=== PATIENT | female | born 1945 | race Caucasian/White ===

== ENCOUNTER 2017-02-27 18:57 | Inpatient (IN) | payer OTHER, MEDICAID, MEDICARE ==
--- NOTE | 2017-02-27 19:08 | ED Physician Chart ---
Chief Complaint/HPI - Patient Information Date Seen:: 02/27/17 Time Seen:: 19:01 Chief Complaint:: abd wound History of Present Illness:: pt sent from [place] for worsening abdominal wound concerning for infection. Hx is diffucult to obtain from pt as she is not a great historian but apparently pt had a sx 1 yr ago at lower abd incision and it became infected and has been so x last yr. pt has ongoing cellulitis to base of abdomen bilat w erythema and 3 areas of large chronically open wound. no known fever. Historian:: Patient Review of Systems - Review of Systems General/Constitutional: No fever, No chills, No weight loss, No weakness, No diaphoresis, No edema, No loss of appetite, Other (morbid obese//nonambulatory) Skin: Skin lesions, Rash, No bruising Head: No headache, No light-headedness Eyes: No loss of vision, No pain, No diplopia ENT: No earache, No nasal drainage, No sore throat, No tinnitus Neck: No neck pain, No swelling, No thyromegaly, No stiffness, No mass noted Cardio Vascular: No chest pain, No palpitations, No PND, No orthopnea, No edema Pulmonary: No SOB, No cough, No sputum, No wheezing GI: No nausea, No vomiting, No diarrhea, No pain, No melena, No hematochezia, No constipation, No hematemesis G/U: No dysuria, No frequency, No hematuria Musculoskeletal: No bone or joint pain, No back pain, No muscle pain Endocrine: No polyuria, No polydipsia Psychiatric: No prior psych history, No depression, No anxiety, No suicidal ideation Hematopoietic: No bruising, No lymphadenopathy Allergic/Immuno: No urticaria, No angioedema Neurological: No syncope, No focal symptoms, Weakness, No paresthesia, No headache, No seizure, No dizziness, Confusion, No confusion, No vertigo Past Medical History - Past Medical History Past Medical History: HTN, DM, CAD, ESRD (dialysis pt), Other (morbid obese, afib) Social History: Care Facility Surgical History: other (prior abd sx) Medication: Reviewed Physical Exam - Physical Examination General/Constitutional: Awake, Well-developed, well-nourished, Alert, No distress, GCS 15, Non-toxic appearing Other Gen/Cons comments:: morbid obese//nonambulatory. no leg edema or ryan open sores. feet warm w ok pulses. pt alert and talking but somewhat poor w med hx. Head: Atraumatic Eyes: Lids, conjuctiva normal, PERRL, EOMI Skin: Nl inspection, No rash, No skin lesions, No ecchymosis, Well hydrated, No lymphadenopathy ENMT: External ears, nose nl, Nasal exam nl, Lips, teeth, gums nl Neck: Nontender, Full ROM w/o pain, No JVD, No nuchal rigidity, No bruit, No mass, No stridor Respiratory: Nl effort/Exclusion, Clear to Auscultation, No Wheeze/Rhonchi/Rales Other Respiratory comments:: dialysis cath l upper chest no sign of infection. Cardio Vascular: RRR, No murmur, gallop, rubs, NL S1 S2 GI: No tenderness/rebounding/guarding, No organomegaly, No hernia, Normal BS's, Nondistended, No mass/bruits, No McBurney tenderness Other GI comments:: warm red cellulitis to base of abdomen bilat w erythema and 3 areas of large chronically open wounds 5-10 cm diameter deep extension w foul malodor...located to either side and mid left low abd. pos nabs. no rebound. morbid obese. : No CVA tenderness Extremities: No tenderness or effusion, Full ROM, normal strength in all extremities, No edema, Normal digits & nails Other Extremities comments:: global nonfocal weakness. rt arm has picc line. no infection. no edema. b leg edema ..initially nonwheeping. Neuro/Psych: Alert/oriented, DTR's symmetric, Normal sensory exam, Normal motor strength, Judgement/insight normal, Mood normal, No focal deficits Misc: normal gait, Normal back, No paraspinal tenderness ED Septic Shock - . Is Septic Shock (SBP<90, OR Lactate>4 mmol\L) present?: Yes - <6hrs of presentation: Vital Signs: 70/40s, p 130 Assessment of Lungs: Lung CTA bilateral Assessment of Heart: RRR EKG Interpretation: NSR Capillary refill evaluation: Capillary refill < 2 secs Skin Exam: Warm, Dry, Edema, Documented in PE - Time of Reassessment Time of Reassessment: 22:09 Reassessment (Disposition) - Reassessment Reassessment:: pt noted w tachycardia 130 and low bp 70/30...has received 1 l ns and has edema of legs w wheeping. no rales in lungs but concern since dialysis pt. pt is alert and talkijng cogently and wondering if bp cuff is too small for this obese pt however since bp seems unquestionably somewhat low have ordered dopamine at 5mcg. pt got levaquin for wound tx. case dw dr cabrera will admit. Reassessment Condition:: Unchanged - Diagnosis Diagnosis:: 1 cellulitis //chronic wound infection lower abdominal wall 2 3x abdominal wall chronic wounds (large) 3 DM 4 hypotension. /tachycardia // r/o sepsis 5 renal failure //dialysis pt - Aftercare/Follow up Instructions Aftercare/Follow-Up Instructions:: Counseled pt regarding lab results/diagnosis & need follow up - Patient Disposition Admitted to:: Telemetry Condition at Disposition:: Unchanged
[2017-02-27] MEDS ORDERED: Sodium Chloride 0.9% 1,000 ML IV ONE ×3 (19:15→22:22)
[2017-02-27] MEDS ORDERED: Levofloxacin 500mg/100mL 500 MG/100 ML BAG IV ONE ×2 (19:16→19:34)
[2017-02-27 19:38] LABS: % BASOPHILS 0.1 % (0.0-2.0); % EOSINOPHILS 0.8 % (0.0-5.0); % LYMPHOCYTES 15.4 % (20.0-50.0); % MONOCYTES 3.8 % (2.0-10.0); % NEUTROPHILS 79.9 % (40.0-80.0); HEMATOCRIT 30.7 % (35.0-45.0); HEMOGLOBIN 10.3 gm/dL (11.7-16.1); MEAN CELL VOLUME 90.2 fl (81-100); MEAN CORPUSCULAR HEMOGLOBIN 30.3 pg (27.0-31.0); MEAN CORPUSCULAR HGB CONC 33.6 pg (28.0-36.0); NEUTROPHILE ABSOLUTE 13.8 Th/cmm (1.8-8.0); PLATELET COUNT 57 Th/cmm (150-400); RED BLOOD COUNT 3.41 Mil/cmm (3.80-5.20); RED CELL DISTRIBUTION WIDTH 17.4 % (11.5-20.0)
[2017-02-27 19:59] LABS: ALB/GLOB RATIO 0.6 (1.0-1.8); ANION GAP 12.6 (7.0-16.0); BILIRUBIN,TOTAL 2.8 mg/dL (0.3-1.0); BUN/CREATININE RATIO 7.1; CALCIUM SERUM 9.5 mg/dL (8.6-10.3); CARBON DIOXIDE 22.4 mEq/L (21.0-31.0)
[2017-02-27 20:05] LABS: CREATININE - SERUM 5.1 mg/dL (0.6-1.2)
[2017-02-27 20:10] LABS: WHITE BLOOD COUNT 17.3 Th/cmm (4.8-10.8)
[2017-02-27 20:25] LABS: INR 2.94 (0.5-1.4); PROTHROMBIN TIME (TEST) 32.3 SECONDS (9.5-11.5)
[2017-02-27] MEDS ORDERED: DOPamine 400 MG/250 ML BAG IV PRN (21:47)
[2017-02-27] MEDS ORDERED: DOPamine 400 MG/250 ML BAG IV ONE (21:51)
[2017-02-27] MEDS ORDERED: Norepinephrine 4 mg/4mL Vial IV ONE (22:59)
[2017-02-27] MEDS ORDERED: Morphine Sulfate 2 mg/mL 1mL Syr ONE (23:21)
[2017-02-27] MEDS: Morphine Sulfate 2 mg/mL 1mL Syr IVP PRN (23:26)
--- NOTE | 2017-02-28 00:10 | History & Physical ---
ADMIT DATE: 02/27/2017 CHIEF COMPLAINT: Hypotension and multiple abdominal wounds. HISTORY OF PRESENT ILLNESS: The patient is a 71-year-old female with long history of diabetes mellitus, end-stage renal failure, obesity, multiple abdominal wound, and end-stage renal failure, presented to the Emergency Room with hypotension. The patient evaluated by the ER physician. The patient received a liter of fluid. Systolic blood pressure remained in the 80s. The patient was admitted to the ICU for more evaluation and treatment. The patient denies any chest pain, any shortness of breath, nausea, vomiting, fever or chills. The patient has multiple abdominal wounds almost for 1 year. The patient goes to hemodialysis on Sunday, and Sunday. She missed her dialysis today. The patient started on IV fluid, IV Levophed, antibiotic. Infectious Disease consultation, Nephrology consultation obtained. Wound care obtained. Dr. Harris, General Surgery consulted on the case. 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 PAST SURGICAL HISTORY: No recent surgery. ALLERGIES: According to the patient, she does not have allergy. According to the papers SHE IS ALLERGIC TO PENICILLIN. MEDICATIONS: Follow admission reconciliation. SOCIAL HISTORY: No smoking, no alcohol or drugs. She lives at [facility] Unit. PHYSICAL EXAMINATION: GENERAL: She is awake, alert, oriented. VITAL SIGNS: Temperature 97.3, heart rate 120, blood pressure 83/50. HEENT: Normocephalic. Pupils reacting to light and accommodation. Sclerae clear. NECK: Supple. Negative for lymphadenopathy, JVD or bruit. CHEST: Bilateral normal. No rhonchi or wheezing. HEART: S1, S2 normal. Tachycardia. ABDOMEN: Soft. SKIN: Significant for multiple stage 4 decubitus ulcer of the lower abdomen. NEUROLOGICAL: She is awake, alert, oriented. No focal motor or sensory deficits. Cranial nerves 2-12 is intact. LABORATORY DATA: White blood 70, hemoglobin 10.3, hematocrit 30.7, platelet is 57. PT 32.3, INR 2.94. Sodium 134, potassium 4, BUN 36, creatinine 5.1, albumin 2.1. ASSESSMENT: 1. Infected multiple abdominal wall, stage 4 calciphylaxis wound. 2. Sepsis. 3. Hypotension. 4. Diabetes mellitus. 5. End-stage renal failure. 6. Anemia. 7. Severe malnutrition. PLAN: The patient admitted to the ICU under Dr. Velazquez's service, started on IV fluid, IV Levophed, IV antibiotic. The patient will resume her medication. Nephrology consultation. Wound care consultation, General Surgery consultation. Infectious Disease consultation. CBC, CMP for tomorrow. The patient is a full code. The patient continued on her Coumadin. JOB# [id number]
--- NOTE | 2017-02-28 01:09 | Consultation ---
Consult Note - Consult Note Service Date: 02/27/17 Consult Note: PHYSICIAN Consultation Note: Date of Admission: 02/27/17 Purpose of Consultation: Chief Complaint: Patient TRIXIE MCKEON was admitted to [facility] Intensive Care Unit with ABD. PAIN INF. / SEPSIS. History of Present Illness: 71 y female with history of calciphylaxis of lower abdomen, CKD 5 on HD, DM2, HTN, Anemia of CD, obesity brought from [place] for worsening lower abdominal wounds with foul smelling discharge, mainly in LLQ. She c/o associated pains in lower abdomen. She denies any fever and had multiple admission regarding the issue. On initial evaluation, she was afebrile and her WBC Count was 17,000. She was started on gentamicin, and given one dose of levaquin. Past Medical History: Calciphylaxis of lower abdomen, Obesity, Dm2, CKD 5 on HD, HTN, Anemia of CD. Allergies: Allergy/AdvReac Type Severity Reaction Status Date / Time heparin Allergy Verified 02/27/17 19:17 iodine Allergy Verified 02/27/17 19:17 Penicillins [PCN] Allergy Verified 02/27/17 19:16 propoxitine sulfate Allergy Uncoded 02/27/17 19:19 Vital Signs Temp 97.3 F 02/27/17 19:19 Pulse 138 02/27/17 23:42 Resp 14 02/27/17 23:42 BP 81/47 02/27/17 23:42 Pulse Ox 100 02/27/17 23:42 Intake & Output 02/27/17 02/27/17 02/28/17 06:59 18:59 06:59 Intake Total 2.032 Balance 2.032 Intake: Intake, IV Amount 2.032 Norepinephrine 4 mg In 2.032 Dextrose 5% 250 ml @ Per Protocol IV TITR PRN Rx#: [id number] Home Medication Medication Instructions Recorded Type Albuterol Sulfate 2.5 mg IH Q2H PRN 02/27/17 History Amikacin [Amikin] 300 mg IV DAILY 02/27/17 History Ascorbic Acid [Vitamin C] 500 mg PO DAILY 02/27/17 History Cholecalciferol (Vit D3) [Vitamin 2,000 iu PO DAILY 02/27/17 History D3] Diphenhydramine HCL [Benadryl] 25 mg PO Q6H PRN 02/27/17 History Escitalopram Oxalate [Lexapro] 10 mg PO DAILY 02/27/17 History Famotidine 20 mg PO BID 02/27/17 History Fludrocortisone Acetate [Florinef] 0.1 mg PO BID 02/27/17 History Hydrocodone/APAP 10 mg/325 mg 1 tab PO Q6H PRN 02/27/17 History [Bowman 10 mg/325 mg] Lactobacillus Acidophilus 1 each PO DAILY 02/27/17 History [Acidophilus] Meropenem 500 mg IV DAILY 02/27/17 History Metoprolol Tartrate 50 mg PO Q12H 02/27/17 History Miconazole 1 appl TD BID 02/27/17 History Polyethylene Glycol 3350 [Miralax] 17 gm PO DAILY PRN 02/27/17 History Vancomycin HCl [Vancomycin] 500 mg IV Q3D 02/27/17 History Warfarin Sodium 2 mg PO HS 02/27/17 History Zinc Sulfate [Zinc Sulfate 111 1 tab PO DAILY 02/27/17 History mg-50 mg] Current Medications Generic Name Dose Route Start Last Admin Trade Name Freq PRN Reason Stop Dose Admin Sodium Chloride 1,000 mls @ 75 mls/hr 02/27/17 22:22 Nacl 0.9% IV 02/28/17 11:41 .[id number] ONE Gentamicin Sulfate 120 mg/ 103 mls @ 100 mls/hr 02/28/17 00:00 Sodium Chloride IV 04/29/17 00:00 Q24H [facility] Norepinephrine Bitartrate 4 mg 254 mls @ 0 mls/hr 02/27/17 23:30 02/28/17 00: 01 / Dextrose IV 04/28/17 23:29 1.5 mcg/min TITR PRN 5.71 mls/hr BP MAINTENANCE (PER PROTOCOL) Titration Protocol Per Protocol Vancomycin HCl 1 gm/ Sodium 250 mls @ 165 mls/hr 02/28/17 01:00 Chloride IV 04/29/17 00:59 ONCE [facility] Clindamycin Phosphate 600 mg in 50 mls @ 100 mls/hr 02/28/17 05:00 Cleocin Pb IV 04/29/17 04:59 Q8HR [facility] Insulin Aspart 0 units 02/28/17 07:30 Novolog Insulin Sliding Scale SUBQ 04/29/17 07:29 ACHS [facility] Protocol Morphine Sulfate 2 mg 02/27/17 23:24 02/27/17 23:26 Morphine IVP 04/28/17 23:23 2 mg Q4HR PRN Administration Pain (Moderate) Review of Systems: A 12 point ROS was reviewed with the pertinent positive and negatives noted in the HPI. Physical Exam: General: Comfortable, not in distress. HEENT: Head is normocephalic, atraumatic. Oral Cavity : moist, pink tongue. Eyes : pallor is present, no icterus. Neck: Supple, no JVD Cardio: S1, and S2 WNL. Sys murmur present. Respiratory: vesicular breath sounds. no crackles no wheezing. Abdominal: soft NT ND BS present, b/l lower quadrant wounds with back necrotic tissues, left worse than right. left eound is deeper and malodorous. Genital/Urinary: Extremities: NCCE. Neurological: AAOx3, no focal neurodeficit. Assessment: 1. Leukocytosis suspect sepsis. 2. Infected lower abdominal wounds, worse on the left. 3. Calciphylaxis of lower abdomen. 4. Obesity. 5. Dm2 6. CKD 5 on HD. 7. HTN. 8. Anemia of CD. Plan: Will start vanco IV and clinda, continue gentamicin. Wound care. Sepsis w/u, including wound cultures. Signed, Elie Herrera M.D. [id number]
[2017-02-28] MEDS ORDERED: Gentamicin 80 mg/2mL Vial ONE ×2 (02:01→02:03)
[2017-02-28] MEDS ORDERED: Clindamycin 150 mg/mL 4mL Vial ONE (02:06)
[2017-02-28] MEDS ORDERED: Diltiazem 5 mg/mL 5mL Vial IVP ONE (04:02)
[2017-02-28] MEDS: Clindamycin 600mg/50mL 600 MG/50 ML BAG IV SCH ×3 (05:12→21:37)
[2017-02-28] MEDS: INSULIN ASPART SLIDING SCALE 100 UNITS/ML UNIT SUBQ SCH ×3 (06:55→18:00)
[2017-02-28 07:40] LABS: HEMATOCRIT 29.6 % (35.0-45.0); MEAN CELL VOLUME 91.5 fl (81-100); MEAN CORPUSCULAR HGB CONC 33.9 pg (28.0-36.0); MEAN PLATELET VOLUME 7.9 fl; PLATELET COUNT 57 Th/cmm (150-400); RED BLOOD COUNT 3.23 Mil/cmm (3.80-5.20); RED CELL DISTRIBUTION WIDTH 17.6 % (11.5-20.0)
[2017-02-28 07:44] LABS: WHITE BLOOD COUNT 19.1 Th/cmm (4.8-10.8)
[2017-02-28 08:10] LABS: ANION GAP 11.3 (7.0-16.0); BUN/CREATININE RATIO 7.6; CALCIUM SERUM 9.3 mg/dL (8.6-10.3); CARBON DIOXIDE 21.8 mEq/L (21.0-31.0); POTASSIUM SERUM 4.1 mEq/L (3.5-5.1)
[2017-02-28 09:04] LABS: BAND NEUTROPHILE 5 % (0-10); EOSINOPHIL 1 % (0-5); NEUTROPHILS 79 % (40-80); PLATELET ESTIMATE DECREASED PLATELETS (NORMAL); PLATELET MORPHOLOGY NORMAL (NORMAL); TOTAL CELLS COUNTED 100
[2017-02-28] MEDS: Lactobacillus Rhamnosus 10 Billion CFU Capsule PO SCH (09:06)
[2017-02-28] MEDS: MICONAZOLE 2% VG SCH ×2 (09:35→17:26)
[2017-02-28] MEDS: Morphine Sulfate 2 mg/mL 1mL Syr IVP PRN ×2 (10:28→15:30)
--- NOTE | 2017-02-28 10:41 | General Progress Note ---
Subjective - Review of Systems Service Date: 02/28/17 Events since last encounter: PT 32 seconds, DC Warfarin Plan: excisionaol debridement and wound vac application Patient will need lipectomy Objective - Results Result Diagrams: 02/28/17 06:55 02/28/17 06:55 Recent Labs: Laboratory Last Values WBC 19.1 Th/cmm (4.8-10.8) H 02/28/17 06:55 RBC 3.23 Mil/cmm (3.80-5.20) L 02/28/17 06:55 Hgb 10.0 gm/dL (11.7-16.1) L 02/28/17 06:55 Hct 29.6 % (35.0-45.0) L 02/28/17 06:55 MCV 91.5 fl (81-100) 02/28/17 06:55 MCH 31.0 pg (27.0-31.0) 02/28/17 06:55 MCHC Differential 33.9 pg (28.0-36.0) 02/28/17 06:55 RDW 17.6 % (11.5-20.0) 02/28/17 06:55 Plt Count 57 Th/cmm (150-400) L 02/28/17 06:55 MPV 7.9 fl 02/28/17 06:55 Neutrophils % 79.9 % (40.0-80.0) 02/27/17 19:30 Band Neutrophils % 5 % (0-10) 02/28/17 06:55 Lymphocytes % 15.4 % (20.0-50.0) L 02/27/17 19:30 Monocytes % 3.8 % (2.0-10.0) 02/27/17 19:30 Eosinophils % 0.8 % (0.0-5.0) 02/27/17 19:30 Basophils % 0.1 % (0.0-2.0) 02/27/17 19:30 Neutrophils (Manual) 79 % (40-80) 02/28/17 06:55 Lymphocytes 11 % (20-50) L 02/28/17 06:55 Monocytes 4 % (2-10) 02/28/17 06:55 Eosinophils 1 % (0-5) 02/28/17 06:55 Platelet Estimate DECREASED PLATELETS (NORMAL) 02/28/17 06:55 Platelet Morphology NORMAL (NORMAL) 02/28/17 06:55 RBC Morph Micro Appear NORMAL (NORMAL) 02/28/17 06:55 PT 32.3 SECONDS (9.5-11.5) H 02/27/17 19:30 INR 2.94 (0.5-1.4) H 02/27/17 19:30 PTT (Actin FS) 73.8 SECONDS (26.0-38.0) H 02/27/17 19:30 Sodium 137 mEq/L (136-145) 02/28/17 06:55 Potassium 4.1 mEq/L (3.5-5.1) 02/28/17 06:55 Chloride 108 mEq/L (98-107) H 02/28/17 06:55 Carbon Dioxide 21.8 mEq/L (21.0-31.0) 02/28/17 06:55 Anion Gap 11.3 (7.0-16.0) 02/28/17 06:55 BUN 38 mg/dL (7-25) H 02/28/17 06:55 Creatinine 5.0 mg/dL (0.6-1.2) H* 02/28/17 06:55 Est GFR ( Amer) 11.0 ml/min (>90) 02/28/17 06:55 Est GFR (Non-Af Amer) 9.1 ml/min 02/28/17 06:55 BUN/Creatinine Ratio 7.6 02/28/17 06:55 Glucose 91 mg/dL (70-105) 02/28/17 06:55 POC Glucose 82 MG/DL (70 - 105) 02/28/17 06:41 Hemoglobin A1c % 4.6 % (4.0-6.0) 02/27/17 19:30 Whole Bld Lactic Acid 1.56 mmol/L (0.60-1.99) 02/27/17 19:30 Calcium 9.3 mg/dL (8.6-10.3) 02/28/17 06:55 Total Bilirubin 2.8 mg/dL (0.3-1.0) H 02/27/17 19:30 AST 58 U/L (13-39) H 02/27/17 19:30 ALT 18 U/L (7-52) 02/27/17 19:30 Alkaline Phosphatase 205 U/L (34-104) H 02/27/17 19:30 Total Protein 5.9 gm/dL (6.0-8.3) L 02/27/17 19:30 Albumin 2.1 gm/dL (3.7-5.3) L 02/27/17 19:30 Globulin 3.8 gm/dL 02/27/17 19:30 Albumin/Globulin Ratio 0.6 (1.0-1.8) L 02/27/17 19:30 Serum Ketones NEGATIVE (NEGATIVE) 02/27/17 19:30 - Physical Exam Vitals and I&O: Vital Signs Temp 98.0 F 02/28/17 04:00 Pulse 116 02/28/17 09:05 Resp 16 02/28/17 07:00 BP 96/52 02/28/17 09:05 Pulse Ox 98 02/28/17 07:00 Intake & Output 02/27/17 02/28/17 02/28/17 18:59 06:59 18:59 Intake Total 155.032 Output Total 0 Balance 155.032 Weight (lbs) 122.47 kg Intake: Intake, IV Amount 155.032 Clindamycin 600mg/50mL 50 600 mg In 50 ml @ 100 mls /hr IV Q8HR [facility] Rx#: [id number] Gentamicin 120 mg In 103 Sodium Chloride 0.9% 100 ml @ 100 mls/hr IV Q24H [facility] Rx#:[id number] Norepinephrine 4 mg In 2.032 Dextrose 5% 250 ml @ Per Protocol IV TITR PRN Rx#: [id number] Output: Urine 0 Other: # Bowel Movements 0 Active Medications: Current Medications Albuterol Sulfate (Albuterol 2.5mg/3ml Neb Ud) 2.5 mg HHN Q2H PRN PRN Reason: Shortness of Breath Stop: 04/29/17 03:59 Ascorbic Acid (Vitamin C) 500 mg PO DAILY [facility] Stop: 04/29/17 08:59 Last Admin: 02/28/17 09:05 Dose: 500 mg Cholecalciferol (Vitamin D3) 2,000 iu PO DAILY [facility] Stop: 04/29/17 08:59 Last Admin: 02/28/17 09:05 Dose: 2,000 iu Diphenhydramine HCl (Benadryl) 25 mg PO Q6H PRN PRN Reason: Itching Stop: 10/01/17 03:39 Escitalopram Oxalate (Lexapro) 10 mg PO DAILY [facility] PRN Reason: Protocol Stop: 04/29/17 08:59 Last Admin: 02/28/17 09:04 Dose: 10 mg Famotidine (Pepcid) 20 mg PO BID [facility] Stop: 04/29/17 08:59 Last Admin: 02/28/17 09:06 Dose: 20 mg Fludrocortisone Acetate (Florinef) 0.1 mg PO BID [facility] Stop: 04/29/17 08:59 Last Admin: 02/28/17 09:04 Dose: 0.1 mg Sodium Chloride (Nacl 0.9%) 1,000 mls @ 75 mls/hr IV .[id number] ONE Stop: 02/28/17 11:41 Gentamicin Sulfate 120 mg/ (Sodium Chloride) 103 mls @ 100 mls/hr IV Q24H [facility] Stop: 04/29/17 00:00 Last Infusion: 02/28/17 03:35 Dose: Infused Norepinephrine Bitartrate 4 mg (/ Dextrose) 254 mls @ 0 mls/hr IV TITR PRN; Protocol; Per Protocol PRN Reason: BP MAINTENANCE (PER PROTOCOL) Stop: 04/28/17 23:29 Last Titration: 02/28/17 00:01 Dose: 1.5 mcg/min, 5.71 mls/hr Clindamycin Phosphate (Cleocin Pb) 600 mg in 50 mls @ 100 mls/hr IV Q8HR [facility] Stop: 04/29/17 04:59 Last Infusion: 02/28/17 05:45 Dose: Infused Diltiazem HCl 125 mg/ Dextrose 125 mls @ 10 mls/hr IV TITR [facility]; 10 MG/HR PRN Reason: Protocol Stop: 04/29/17 04:14 Last Admin: 02/28/17 05:00 Dose: 10 mg/hr, 10 mls/hr Insulin Aspart (Novolog Insulin Sliding Scale) 0 units SUBQ ACHS [facility] PRN Reason: Protocol Stop: 04/29/17 07:29 Last Admin: 02/28/17 06:55 Dose: Not Given Lactobacillus Rhamnosus (Culturelle) 1 each PO DAILY [facility] Stop: 04/29/17 08:59 Last Admin: 02/28/17 09:06 Dose: 1 each Metoprolol Tartrate (Lopressor) 50 mg PO Q12HR [facility] Stop: 04/29/17 08:59 Last Admin: 02/28/17 09:05 Dose: Not Given Miconazole Nitrate (Miconazole 2% Cream) 1 appl VG BID [facility] Stop: 03/07/17 08:59 Morphine Sulfate (Morphine) 2 mg IVP Q4HR PRN PRN Reason: Pain (Moderate) Stop: 04/28/17 23:23 Last Admin: 02/28/17 10:28 Dose: 2 mg Warfarin Sodium (Coumadin) 2 mg PO HS [facility] PRN Reason: Protocol Stop: 04/29/17 20:59 Zinc Sulfate (Zinc Sulfate) 220 mg PO DAILY [facility] Stop: 04/29/17 08:59 Last Admin: 02/28/17 09:05 Dose: 220 mg
[2017-02-28] MEDS: Venelex 60gm Tube TP SCH (12:26)
[2017-02-28] MEDS: D5-0.45NS 1,000 ML IV SCH (13:15)
--- NOTE | 2017-02-28 14:43 | Infectious Disease Prog Note ---
Infectious Disease Subjective - Review of Systems Service Date: 02/28/17 Subjective: There is no new change. Infectious Disease Objective - Results Result Diagrams: 02/28/17 06:55 02/28/17 06:55 Recent Labs: Laboratory Last Values WBC 19.1 Th/cmm (4.8-10.8) H 02/28/17 06:55 RBC 3.23 Mil/cmm (3.80-5.20) L 02/28/17 06:55 Hgb 10.0 gm/dL (11.7-16.1) L 02/28/17 06:55 Hct 29.6 % (35.0-45.0) L 02/28/17 06:55 MCV 91.5 fl (81-100) 02/28/17 06:55 MCH 31.0 pg (27.0-31.0) 02/28/17 06:55 MCHC Differential 33.9 pg (28.0-36.0) 02/28/17 06:55 RDW 17.6 % (11.5-20.0) 02/28/17 06:55 Plt Count 57 Th/cmm (150-400) L 02/28/17 06:55 MPV 7.9 fl 02/28/17 06:55 Neutrophils % 79.9 % (40.0-80.0) 02/27/17 19:30 Band Neutrophils % 5 % (0-10) 02/28/17 06:55 Lymphocytes % 15.4 % (20.0-50.0) L 02/27/17 19:30 Monocytes % 3.8 % (2.0-10.0) 02/27/17 19:30 Eosinophils % 0.8 % (0.0-5.0) 02/27/17 19:30 Basophils % 0.1 % (0.0-2.0) 02/27/17 19:30 Neutrophils (Manual) 79 % (40-80) 02/28/17 06:55 Lymphocytes 11 % (20-50) L 02/28/17 06:55 Monocytes 4 % (2-10) 02/28/17 06:55 Eosinophils 1 % (0-5) 02/28/17 06:55 Platelet Estimate DECREASED PLATELETS (NORMAL) 02/28/17 06:55 Platelet Morphology NORMAL (NORMAL) 02/28/17 06:55 RBC Morph Micro Appear NORMAL (NORMAL) 02/28/17 06:55 PT 32.3 SECONDS (9.5-11.5) H 02/27/17 19:30 INR 2.94 (0.5-1.4) H 02/27/17 19:30 PTT (Actin FS) 73.8 SECONDS (26.0-38.0) H 02/27/17 19:30 Sodium 137 mEq/L (136-145) 02/28/17 06:55 Potassium 4.1 mEq/L (3.5-5.1) 02/28/17 06:55 Chloride 108 mEq/L (98-107) H 02/28/17 06:55 Carbon Dioxide 21.8 mEq/L (21.0-31.0) 02/28/17 06:55 Anion Gap 11.3 (7.0-16.0) 02/28/17 06:55 BUN 38 mg/dL (7-25) H 02/28/17 06:55 Creatinine 5.0 mg/dL (0.6-1.2) H* 02/28/17 06:55 Est GFR ( Amer) 11.0 ml/min (>90) 02/28/17 06:55 Est GFR (Non-Af Amer) 9.1 ml/min 02/28/17 06:55 BUN/Creatinine Ratio 7.6 02/28/17 06:55 Glucose 91 mg/dL (70-105) 02/28/17 06:55 POC Glucose 96 MG/DL (70 - 105) 02/28/17 12:24 Hemoglobin A1c % 4.6 % (4.0-6.0) 02/27/17 19:30 Whole Bld Lactic Acid 1.56 mmol/L (0.60-1.99) 02/27/17 19:30 Calcium 9.3 mg/dL (8.6-10.3) 02/28/17 06:55 Phosphorus 5.4 mg/dL (2.5-5.0) H 02/28/17 06:55 Total Bilirubin 2.8 mg/dL (0.3-1.0) H 02/27/17 19:30 AST 58 U/L (13-39) H 02/27/17 19:30 ALT 18 U/L (7-52) 02/27/17 19:30 Alkaline Phosphatase 205 U/L (34-104) H 02/27/17 19:30 Total Protein 5.9 gm/dL (6.0-8.3) L 02/27/17 19:30 Albumin 2.1 gm/dL (3.7-5.3) L 02/27/17 19:30 Globulin 3.8 gm/dL 02/27/17 19:30 Albumin/Globulin Ratio 0.6 (1.0-1.8) L 02/27/17 19:30 Serum Ketones NEGATIVE (NEGATIVE) 02/27/17 19:30 - Physical Exam Vitals and I&O: Vital Signs Temp 98 F 02/28/17 13:00 Pulse 116 02/28/17 14:00 Resp 11 02/28/17 13:00 BP 86/42 02/28/17 13:00 Pulse Ox 98 02/28/17 13:00 Intake & Output 02/27/17 02/28/17 02/28/17 18:59 06:59 18:59 Intake Total 155.032 Output Total 0 Balance 155.032 Weight (lbs) 122.47 kg Intake: Intake, IV Amount 155.032 Clindamycin 600mg/50mL 50 600 mg In 50 ml @ 100 mls /hr IV Q8HR [facility] Rx#: [id number] Gentamicin 120 mg In 103 Sodium Chloride 0.9% 100 ml @ 100 mls/hr IV Q24H [facility] Rx#:[id number] Norepinephrine 4 mg In 2.032 Dextrose 5% 250 ml @ Per Protocol IV TITR PRN Rx#: [id number] Output: Urine 0 Other: # Bowel Movements 0 Active Medications: Current Medications Albuterol Sulfate (Albuterol 2.5mg/3ml Neb Ud) 2.5 mg HHN Q2H PRN PRN Reason: Shortness of Breath Stop: 04/29/17 03:59 Ascorbic Acid (Vitamin C) 500 mg PO DAILY [facility] Stop: 04/29/17 08:59 Last Admin: 02/28/17 09:05 Dose: 500 mg Cholecalciferol (Vitamin D3) 2,000 iu PO DAILY [facility] Stop: 04/29/17 08:59 Last Admin: 02/28/17 09:05 Dose: 2,000 iu Diphenhydramine HCl (Benadryl) 25 mg PO Q6H PRN PRN Reason: Itching Stop: 04/29/17 03:39 Escitalopram Oxalate (Lexapro) 10 mg PO DAILY [facility] PRN Reason: Protocol Stop: 04/29/17 08:59 Last Admin: 02/28/17 09:04 Dose: 10 mg Famotidine (Pepcid) 20 mg PO BID [facility] Stop: 04/29/17 08:59 Last Admin: 02/28/17 09:06 Dose: 20 mg Fludrocortisone Acetate (Florinef) 0.1 mg PO BID [facility] Stop: 04/29/17 08:59 Last Admin: 02/28/17 09:04 Dose: 0.1 mg Norepinephrine Bitartrate 4 mg (/ Dextrose) 254 mls @ 0 mls/hr IV TITR PRN; Protocol; Per Protocol PRN Reason: BP MAINTENANCE (PER PROTOCOL) Stop: 04/28/17 23:29 Last Titration: 02/28/17 00:01 Dose: 1.5 mcg/min, 5.71 mls/hr Clindamycin Phosphate (Cleocin Pb) 600 mg in 50 mls @ 100 mls/hr IV Q8HR [facility] Stop: 04/29/17 04:59 Last Admin: 02/28/17 13:00 Dose: 100 mls/hr Diltiazem HCl 125 mg/ Dextrose 125 mls @ 10 mls/hr IV TITR [facility]; 10 MG/HR PRN Reason: Protocol Stop: 04/29/17 04:14 Last Admin: 02/28/17 05:00 Dose: 10 mg/hr, 10 mls/hr Gentamicin Sulfate 160 mg/ (Sodium Chloride) 104 mls @ 200 mls/hr IV Q48H [facility] Stop: 04/30/17 08:59 Dextrose/Sodium Chloride (D5-0.45ns) 1,000 mls @ 75 mls/hr IV .[id number] [facility] Stop: 04/29/17 13:08 Last Admin: 02/28/17 13:15 Dose: 75 mls/hr Insulin Aspart (Novolog Insulin Sliding Scale) 0 units SUBQ ACHS [facility] PRN Reason: Protocol Stop: 04/29/17 07:29 Last Admin: 02/28/17 12:30 Dose: Not Given Lactobacillus Rhamnosus (Culturelle) 1 each PO DAILY [facility] Stop: 04/29/17 08:59 Last Admin: 08/02/17 09:06 Dose: 1 each Metoprolol Tartrate (Lopressor) 50 mg PO Q12HR [facility] Stop: 04/29/17 08:59 Last Admin: 02/28/17 09:05 Dose: Not Given Miconazole Nitrate (Miconazole 2% Cream) 1 appl VG BID [facility] Stop: 03/07/17 08:59 Last Admin: 02/28/17 09:35 Dose: 1 appl Miscellaneous (Clinical Monitoring) 1 ea MC DAILY PRN PRN Reason: RENAL Stop: 04/29/17 10:50 Morphine Sulfate (Morphine) 2 mg IVP Q4HR PRN PRN Reason: Pain (Moderate) Stop: 04/28/17 23:23 Last Admin: 02/28/17 10:28 Dose: 2 mg Phytonadione (Mephyton) 10 mg PO TID [facility] Stop: 03/03/17 13:59 Zinc Sulfate (Zinc Sulfate) 220 mg PO DAILY [facility] Stop: 04/29/17 08:59 Last Admin: 02/28/17 09:05 Dose: 220 mg General: no acute distress, well developed, well nourished HEENT: atraumatic, no normocephalic, no PERRLA, no EOMI, no moist mucous membrane Neck: supple, no thyromegaly Cardiovascular: S1S2, regular Lungs: clear to auscultation bilaterally, clear to percussion Abdomen: soft, other (lower abdominal wound deep foul smeelinmg. worse on left.) , no tender, no distended Extremities: no cyanosis, no clubbing, no edema Neurological: awake, alert, oriented Infectious Disease Assmt/Plan - Assessment Assessment: 1. Leukocytosis suspect sepsis. 2. Infected lower abdominal wounds, worse on the left. 3. Calciphylaxis of lower abdomen. 4. Obesity. 5. Dm2 6. CKD 5 on HD. 7. HTN. 8. Anemia of CD. - Plan Plan: Will start vanco IV and clinda, continue gentamicin. Wound care. Sepsis w/u, including wound cultures.
[2017-02-28] MEDS ORDERED: VTE Chemical Prophylaxis Screen/Admission MC PRN (15:41)
[2017-02-28] MEDS ORDERED: Levofloxacin 250mg/50mL 250 MG/50 ML BAG IV SCH (17:00)
--- NOTE | 2017-02-28 20:52 | Consultation ---
DATE OF CONSULTATION: 02/28/2017 PATIENT OF: Dr. Velazquez. HISTORY AND PHYSICAL: This is a 71-year-old morbidly obese female patient who was recently discharged from [facility] to custodial. From there the patient became hypotensive. The patient came to the Emergency Room with a blood pressure of 80 systolic. The patient was given IV fluid challenge, following this the patient developed supraventricular tachycardia. At this time, Cardiology consult was requested. PAST MEDICAL HISTORY: Cellulitis of the abdominal wound with wound infection, hypertension, diabetes mellitus type 2, diabetic CKD stage 5, end-stage renal disease, on dialysis, iron deficiency anemia, morbid obesity, obstructive sleep apnea, secondary hyperparathyroidism, and the patient has stage 4 calciphylaxis wound. FAMILY HISTORY: Unremarkable. SOCIAL HISTORY: No history of smoking, alcohol abuse. ALLERGIES: PENICILLIN. PHYSICAL EXAMINATION: VITAL SIGNS: Blood pressure 110/70, pulse 110, respirations 20. HEAD: Normocephalic. No lumps or bumps. EYES: Pupils equal, reactive to light. Fundi show AV nicking, sclerae white, conjunctivae pink. NECK: Carotids 2+. Normal upstroke. JVD flat. Thyroid not palpable. Lymph nodes not palpable. CHEST: Shows increased AP diameter. No kyphosis, scoliosis. LUNGS: Bilateral breath sounds. HEART: PMI fifth intercostal space lateral to midclavicular line. S1, S2. No S3, S4, soft systolic murmur. ABDOMEN: Soft. The patient has a wound, which is infected with stage 4 calciphylaxis of the wound. EXTREMITIES: Peripheral pulses 1+, pedal edema mild. CLINICAL IMPRESSION: Hypotension, septic shock, cellulitis of the abdomen, with calciphylaxis of wound stage 4, hypertension, diabetes mellitus type 2, diabetic chronic kidney disease stage 5, end-stage renal disease on dialysis, iron deficiency anemia, morbid obesity, obstructive sleep apnea. PLAN: The patient to have dialysis, ultrafiltration. Infectious Disease consult and Surgical consult for debridement of the wound. JOB# [id number]
--- NOTE | 2017-02-28 22:28 | Internal Medicine Prog Note ---
Internal Medicine Subjective - Subjective Service Date: 02/28/17 Patient seen and examined:: with staff Patient is:: awake, verbal Per staff patient has:: poor appetite, tolerating meds Internal Medicine Objective - Results Result Diagrams: 02/28/17 06:55 02/28/17 06:55 Recent Labs: Laboratory Last Values WBC 19.1 Th/cmm (4.8-10.8) H 02/28/17 06:55 RBC 3.23 Mil/cmm (3.80-5.20) L 02/28/17 06:55 Hgb 10.0 gm/dL (11.7-16.1) L 02/28/17 06:55 Hct 29.6 % (35.0-45.0) L 02/28/17 06:55 MCV 91.5 fl (81-100) 02/28/17 06:55 MCH 31.0 pg (27.0-31.0) 02/28/17 06:55 MCHC Differential 33.9 pg (28.0-36.0) 02/28/17 06:55 RDW 17.6 % (11.5-20.0) 02/28/17 06:55 Plt Count 57 Th/cmm (150-400) L 02/28/17 06:55 MPV 7.9 fl 02/28/17 06:55 Neutrophils % 79.9 % (40.0-80.0) 02/27/17 19:30 Band Neutrophils % 5 % (0-10) 02/28/17 06:55 Lymphocytes % 15.4 % (20.0-50.0) L 02/27/17 19:30 Monocytes % 3.8 % (2.0-10.0) 02/27/17 19:30 Eosinophils % 0.8 % (0.0-5.0) 02/27/17 19:30 Basophils % 0.1 % (0.0-2.0) 02/27/17 19:30 Neutrophils (Manual) 79 % (40-80) 02/28/17 06:55 Lymphocytes 11 % (20-50) L 02/28/17 06:55 Monocytes 4 % (2-10) 02/28/17 06:55 Eosinophils 1 % (0-5) 02/28/17 06:55 Platelet Estimate DECREASED PLATELETS (NORMAL) 02/28/17 06:55 Platelet Morphology NORMAL (NORMAL) 02/28/17 06:55 RBC Morph Micro Appear NORMAL (NORMAL) 02/28/17 06:55 PT 32.3 SECONDS (9.5-11.5) H 02/27/17 19:30 INR 2.94 (0.5-1.4) H 02/27/17 19:30 PTT (Actin FS) 73.8 SECONDS (26.0-38.0) H 02/27/17 19:30 Sodium 137 mEq/L (136-145) 02/28/17 06:55 Potassium 4.1 mEq/L (3.5-5.1) 02/28/17 06:55 Chloride 108 mEq/L (98-107) H 02/28/17 06:55 Carbon Dioxide 21.8 mEq/L (21.0-31.0) 02/28/17 06:55 Anion Gap 11.3 (7.0-16.0) 02/28/17 06:55 BUN 38 mg/dL (7-25) H 02/28/17 06:55 Creatinine 5.0 mg/dL (0.6-1.2) H* 02/28/17 06:55 Est GFR ( Amer) 11.0 ml/min (>90) 02/28/17 06:55 Est GFR (Non-Af Amer) 9.1 ml/min 02/28/17 06:55 BUN/Creatinine Ratio 7.6 02/28/17 06:55 Glucose 91 mg/dL (70-105) 02/28/17 06:55 POC Glucose 96 MG/DL (70 - 105) 02/28/17 12:24 Hemoglobin A1c % 4.6 % (4.0-6.0) 02/27/17 19:30 Whole Bld Lactic Acid 1.56 mmol/L (0.60-1.99) 02/27/17 19:30 Calcium 9.3 mg/dL (8.6-10.3) 02/28/17 06:55 Phosphorus 5.4 mg/dL (2.5-5.0) H 02/28/17 06:55 Total Bilirubin 2.8 mg/dL (0.3-1.0) H 02/27/17 19:30 AST 58 U/L (13-39) H 02/27/17 19:30 ALT 18 U/L (7-52) 02/27/17 19:30 Alkaline Phosphatase 205 U/L (34-104) H 02/27/17 19:30 Total Protein 5.9 gm/dL (6.0-8.3) L 02/27/17 19:30 Albumin 2.1 gm/dL (3.7-5.3) L 02/27/17 19:30 Globulin 3.8 gm/dL 02/27/17 19:30 Albumin/Globulin Ratio 0.6 (1.0-1.8) L 02/27/17 19:30 Serum Ketones NEGATIVE (NEGATIVE) 02/27/17 19:30 - Physical Exam Vitals and I&O: Vital Signs Temp 97.6 F 02/28/17 19:00 Pulse 110 02/28/17 19:00 Resp 10 02/28/17 19:00 BP 96/51 02/28/17 19:00 Pulse Ox 98 02/28/17 19:00 Intake & Output 02/28/17 02/28/17 03/01/17 06:59 18:59 06:59 Intake Total 155.032 322.140 Output Total 0 Balance 155.032 322.140 Weight (lbs) 122.47 kg Intake: Intake, IV Amount 155.032 322.140 Clindamycin 600mg/50mL 50 50 600 mg In 50 ml @ 100 mls /hr IV Q8HR [facility] Rx#: [id number] Diltiazem 125 mg In 123.167 Dextrose 5% 100 ml @ 10 MG/HR 10 mls/hr IV TITR [facility] Rx#:[id number] Gentamicin 120 mg In 103 Sodium Chloride 0.9% 100 ml @ 100 mls/hr IV Q24H [facility] Rx#:[id number] Levofloxacin 250mg/50mL 50 250 mg In 50 ml @ 50 mls/ hr IV Q48HR [facility] Rx#: [id number] Norepinephrine 4 mg In 2.032 98.973 Dextrose 5% 250 ml @ Per Protocol IV TITR PRN Rx#: [id number] Output: Urine 0 Other: # Bowel Movements 0 Active Medications: Current Medications Albuterol Sulfate (Albuterol 2.5mg/3ml Neb Ud) 2.5 mg HHN Q2H PRN PRN Reason: Shortness of Breath Stop: 04/29/17 03:59 Ascorbic Acid (Vitamin C) 500 mg PO DAILY [facility] Stop: 04/29/17 08:59 Last Admin: 02/28/17 09:05 Dose: 500 mg Cholecalciferol (Vitamin D3) 2,000 iu PO DAILY [facility] Stop: 04/29/17 08:59 Last Admin: 02/28/17 09:05 Dose: 2,000 iu Diphenhydramine HCl (Benadryl) 25 mg PO Q6H PRN PRN Reason: Itching Stop: 04/29/17 03:39 Escitalopram Oxalate (Lexapro) 10 mg PO DAILY [facility] PRN Reason: Protocol Stop: 04/29/17 08:59 Last Admin: 02/28/17 09:04 Dose: 10 mg Famotidine (Pepcid) 20 mg PO BID [facility] Stop: 04/29/17 08:59 Last Admin: 02/28/17 17:25 Dose: 20 mg Fludrocortisone Acetate (Florinef) 0.1 mg PO BID [facility] Stop: 04/29/17 08:59 Last Admin: 02/28/17 17:12 Dose: 0.1 mg Norepinephrine Bitartrate 4 mg (/ Dextrose) 254 mls @ 0 mls/hr IV TITR PRN; Protocol; Per Protocol PRN Reason: BP MAINTENANCE (PER PROTOCOL) Stop: 04/28/17 23:29 Last Admin: 02/28/17 17:21 Dose: 1.5 mcg/min, 5.71 mls/hr Clindamycin Phosphate (Cleocin Pb) 600 mg in 50 mls @ 100 mls/hr IV Q8HR [facility] Stop: 04/29/17 04:59 Last Admin: 02/28/17 21:37 Dose: 100 mls/hr Diltiazem HCl 125 mg/ Dextrose 125 mls @ 10 mls/hr IV TITR [facility]; 10 MG/HR PRN Reason: Protocol Stop: 04/29/17 04:14 Last Admin: 02/28/17 17:19 Dose: 10 mg/hr, 10 mls/hr Gentamicin Sulfate 160 mg/ (Sodium Chloride) 104 mls @ 200 mls/hr IV Q48H [facility] Stop: 04/30/17 08:59 Dextrose/Sodium Chloride (D5-0.45ns) 1,000 mls @ 75 mls/hr IV .[id number] [facility] Stop: 04/29/17 13:08 Last Admin: 02/28/17 13:15 Dose: 75 mls/hr Levofloxacin (Levaquin Pb) 250 mg in 50 mls @ 50 mls/hr IV Q48HR [facility] Stop: 04/29/17 16:59 Last Infusion: 02/28/17 18:15 Dose: Infused Albumin Human (Albuminar 25%) 25 gm in 100 mls @ 50 mls/hr IV PRN PRN PRN Reason: BP Support During HD Stop: 03/01/17 23:59 Lactobacillus Rhamnosus (Culturelle) 1 each PO DAILY [facility] Stop: 04/29/17 08:59 Last Admin: 02/28/17 09:06 Dose: 1 each Metoprolol Tartrate (Lopressor) 50 mg PO Q12HR [facility] Stop: 04/29/17 08:59 Last Admin: 02/28/17 09:05 Dose: Not Given Miconazole Nitrate (Miconazole 2% Cream) 1 appl VG BID [facility] Stop: 03/07/17 08:59 Last Admin: 02/28/17 17:26 Dose: 1 appl Miscellaneous (Clinical Monitoring) 1 ea DAILY PRN PRN Reason: RENAL Stop: 04/29/17 10:50 Miscellaneous ([employer] Prophylaxis Screen/ Admission) 1 [facility] PRN PRN PRN Reason: PROTOCOL Stop: 04/29/17 15:40 Morphine Sulfate (Morphine) 2 mg IVP Q4HR PRN PRN Reason: Pain (Moderate) Stop: 04/28/17 23:23 Last Admin: 02/28/17 15:30 Dose: 2 mg Phytonadione (Mephyton) 10 mg PO TID [facility] Stop: 03/03/17 13:59 Last Admin: 02/28/17 14:43 Dose: 10 mg Sevelamer HCl (Renagel) 800 mg PO TIDWM [facility] Stop: 04/30/17 07:59 Zinc Sulfate (Zinc Sulfate) 220 mg PO DAILY [facility] Stop: 04/29/17 08:59 Last Admin: 02/28/17 09:05 Dose: 220 mg General: weak, lethargic, obese HEENT: NC/AT, PERRLA, EOMI, anicteric sclerae Neck: Supple, No JVD, No thyromegaly, +2 carotid pulse wo bruit Cardiovascular: RRR, Normal S1, Normal S2, tachy Abdomen: soft, tender, positive bowel sound Extremities: edema Neurological: no change (abdominal wall significant for multiple stage 4 opened wounds) Internal Medicine Assmt/Plan - Assessment Assessment: 1'MULTIPLE CALCIPHYLAXIS WOUND OF THE ABDOMINAL WALL 2.DM. 3.SEPSIS. 4.ESRF - Plan Plan: CONTINUE ON CURRENT MEDICATION AND DIET. Nutritional Asmnt/Malnutr-PDOC - Dietary Evaluation Malnutrition Findings (Please click <Entered> for more info): Nutritional Asmnt/Malnutrition Start: 02/28/17 14: 25 Text: Status: Complete Freq: Document 02/28/17 14:32 GSUN (Rec: 02/28/17 14:52 [email or web address] [email or web address]) Nutritional Asmnt/Malnutrition Patient General Information Nutritional Screening High Risk Screening Diagnosis Infectured multiple abdominal wound, sepsis, hypotension Pertinent Medical Hx/Surgical Hx DM, end stage renal failure, obesity, multiple abdominal wound, anemia Subjective Information 71 [address] consult for wounds/calciphylaxis. Pt was lethargic during visit, spoke to at bedside. Briefly explained renal diet, agreeable to plan, not suitble for extensive edu at this time. Pt appeared obese. Pt reported UBW 250lb measured 1 month ago, pt is unsure of dry weight at dialysis center. Pt reported has gradually lost weight 80lb over the past year due to poor appetite and hospitalizations. RD recommended oral supplements, pt denied, stating she has tried and threw up. Current Diet Order/ Nutrition Support Renal, 1800kcal Pertinent Medications Vitamin C, Vitamin D3, D5-0. 45ns, Pepcid, Novolog, Culturelle, Morphine, Zinc Sulfate Pertinent Labs /: BUN 38H, creatinine 5H, phosphorus 5.4H Nutritional Hx/Data Height 1.63 m Height (Calculated Centimeters) 162.6 Current Weight (lbs) 113.398 kg Weight (Calculated Kilograms) 113.4 Weight (Calculated Grams) 891735.1 [place] Body Weight 120 Recent Weight Change Yes Weight Status Morbidly Obese GI Symptoms Skin Integrity/Comment: Bilateral lower extremities pitting 3+. Abdominal wounds/ calciphylaxis Estimated Nutritional Goals BEE in Kcals: Adj wt of IBW Calories/Kcals/Kg AdjBW 152.5lb/69.3kg (adjsuted to UBW) Kcals Calculated 2079-2425kcal (30-35kcal/kg) Protein: Adj wt of IBW Protein Calculated 90-104g (1.2-1.5/gkg) Fluid: ml 2078-2426ml (1ml/kcal) Nutritional Problem 3. Problem Problem Malnutrition related to Etiology unknown etiology, energy imbalance aeb Signs/Symptoms: BMI >40 2. Problem Problem Increased kcal and prot needs related to Etiology hypermetabolic state aeb Signs/Symptoms: on HD, sepsis 1. Problem Problem Impaired nutrient utilization related to Etiology end stage renal failure aeb Signs/Symptoms: on HD, BUN 38H, creatinine 5H, phosphorus 5.4H Malnutrition Related to Morbid Obesity Malnutrition related to morbid obesity BMI> or equal to 40 Query Text:(Any 1 Criteria met) Malnutrition related to morbid obesity Yes Intervention/Recommendation Comments 1. Recommend renal diet. Briefly explained renal diet, pt is agreeable to plan. Encourage PO intake. 2. Recommend removing " 1800kcal" restriction as pt is in hypermetabolic state ( sepsis, HD) and obese, requiring more than 1800kcal, weight loss not favorable at this time. 3. Pt reported poor appetite many months, RD recommend oral supplements, pt declined. Expected Outcomes/Goals Expected Outcomes/Goals 1. PO intake to meet at least 75% of estimated nutritional needs.
[2017-03-01] MEDS ORDERED: Albumin 25% 25gm/100mL 25 GM/100 ML BTL IV PRN
--- NOTE | 2017-03-01 00:14 | Consultation ---
DATE OF CONSULTATION: 02/28/2017 ATTENDING PHYSICIAN: Claudio Velazquez M.D. TELECOM SALES CONSULTANT: Orestes Harrell M.D. REASON FOR CONSULTATION: Electrolyte imbalance and fluid management. HISTORY OF PRESENT ILLNESS: This is a 71-year-old female with past medical history of end-stage renal disease, on hemodialysis, who came in because of nonhealing multiple abdominal wounds. One day prior to admission, the patient had a total right knee replacement. She then developed cellulitis. She was hospitalized and then transferred to [place] for further wound healing and antibiotics. Seven months prior to admission, she developed ischemic/necrotic abdominal wall wound, which involved initially the right lower quadrant and then the left lower quadrant. She underwent debridement of the both wounds. It took several months of antibiotics and wound care with vacuum prior to her discharge to an extended care facility. Three days prior to admission, her abdominal wound had deteriorated. This was associated with increase foul-smelling drainage, severe pain, and severe pain on movement. Her white count upon admission was 17,000. She was then started on Levaquin as well as gentamicin. She has a history of end-stage renal disease, on hemodialysis Sunday, , and Sunday. Her last dialysis treatment was Sunday. No mention of any fever nor chills. PAST MEDICAL HISTORY: 1. Chronic lower abdominal poorly healing wounds. 2. Morbid obesity. 3. Type 2 diabetes mellitus. 4. ESRD, on hemodialysis. 5. Essential hypertension. 6. Anemia of chronic kidney disease. 7. Chronic atrial fibrillation. 8. Coronary artery disease. 9. History of bowel perforation. PAST SURGICAL HISTORY: 1. Status post exploratory laparotomy for repair of bowel perforation with temporary colostomy. 2. Status post debridement of multiple abdominal wounds. CURRENT MEDICATIONS: She is currently on albuterol, ascorbic acid, castor oil, diltiazem, vitamin D3, clindamycin, , Florinef, gentamicin, Lactobacillus, Levofloxacin, norepinephrine, metoprolol, miconazole, morphine, . ALLERGIES: Allergic to HEPARIN, IODINE, and PENICILLIN. SOCIAL HISTORY: No history of alcohol or tobacco use. FAMILY HISTORY: Noncontributory to present illness. REVIEW OF SYSTEMS: CONSTITUTIONAL: Appetite had been poor. No mention of fever or chills. HEENT: No mention of headaches, no dizziness. Hearing acuity and visual ability had deteriorated due to her age. CARDIORESPIRATORY: History of hypertension and chronic atrial fibrillation as well as coronary artery disease. At this point, no shortness of breath, chest pain, palpitations, diaphoresis, or cough. GASTROINTESTINAL: No nausea or vomiting, no cramping, no melena or hematochezia. Periods of constipation. She does have ongoing abdominal pain. GENITOURINARY: History of kidney failure, on hemodialysis. No dysuria, no hematuria. HEMATOLOGIC: History of anemia, more likely of chronic kidney disease. ENDOCRINE: History of diabetes, no thyroid abnormalities, no dyslipidemia. NEUROPSYCH: No syncopal episode, nor seizure activity. PHYSICAL EXAMINATION: GENERAL: The patient is awake, morbidly obese, in pain secondary to abdominal wound needs. VITAL SIGNS: Blood pressure is 103/56, pulse 98, temperature 98.1 degrees. SKIN: Multiple ecchymoses, hematomas, petechiae, especially in the lower extremities as well as upper extremities, poor skin turgor. HEENT: Head is normocephalic, atraumatic. EYES: Extraocular muscles intact. Pupils are equal, round, reactive to light and accommodates. Anicteric sclerae, pale conjunctivae. Nose: Midline nasal septum. Mouth: Moist mucosa with adequate dentition. NECK: Supple, no adenopathy, no thyromegaly, no bruits. Trachea palpated in the midline. CARDIOVASCULAR: S1 and S2, distant heart sounds. No rub or murmur. No gallop appreciated. Point of maximal impulse difficult to assess due to size. LUNGS: Equal expansion. No use of accessory muscles. No supraclavicular retractions. Decreased breath sounds. Few rhonchi, but no rales nor wheezes appreciated. BREAST: Pendulous, symmetrical without any discharge. 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 MUSCULOSKELETAL: Unable to fully assess at the present time, no effusions present in her joints. GENITOURINARY: Normal appearing female genitalia. EXTREMITIES: She does have edema involving upper extremities and I would say +2 bipedal edema. NEUROLOGIC: The patient is awake, verbal, but due to pain unable to follow my neuro commands. LABORATORY DATA: Revealed sodium is 137, potassium 4.1, chloride 108, bicarbonate 21, BUN 38, creatinine 5, calcium 9.3, phosphorous 5.4, albumin 2.1, white count 19.1, hemoglobin 10, hematocrit 29.6, platelets 57, polys 79%. IMPRESSION: 1. End-stage renal disease, on hemodialysis. 2. Acute on chronic nonhealing abdominal wall wound, this possibly due to calciphylaxis, warfarin necrosis, or heparin necrosis. 3. Severe malnutrition. 4. Obesity hypoventilation syndrome. 5. Moderate obesity. 6. Type 2 diabetes mellitus. 7. Essential hypertension. 8. Anemia of chronic kidney disease. 9. Chronic atrial fibrillation. 10. Coronary artery disease. 11. History of bowel perforation, status post resection with temporary colostomy. PLAN: 1. Continue with hemodialysis. 2. Follow up cultures. 3. Continue with antibiotics. 4. Follow up electrolytes. Thank you Dr. Velazquez for this consult. I will follow the patient closely with you. JOB# [id number]
[2017-03-01] MEDS: Morphine Sulfate 2 mg/mL 1mL Syr IVP PRN (03:00)
[2017-03-01 05:20] LABS: MEAN CORPUSCULAR HEMOGLOBIN 31.3 pg (27.0-31.0); RED CELL DISTRIBUTION WIDTH 17.5 % (11.5-20.0)
[2017-03-01 05:31] LABS: HEMATOCRIT 27.7 % (35.0-45.0); HEMOGLOBIN 9.4 gm/dL (11.7-16.1); MEAN CELL VOLUME 92.1 fl (81-100); MEAN PLATELET VOLUME 7.3 fl; PLATELET COUNT 71 Th/cmm (150-400)
[2017-03-01] MEDS: D5-0.45NS 1,000 ML IV SCH (05:37)
[2017-03-01 05:42] LABS: ALB/GLOB RATIO 0.5 (1.0-1.8); ANION GAP 11.4 (7.0-16.0); BILIRUBIN,TOTAL 2.2 mg/dL (0.3-1.0); BUN/CREATININE RATIO 7.8; CALCIUM SERUM 8.6 mg/dL (8.6-10.3); CARBON DIOXIDE 21.7 mEq/L (21.0-31.0); MAGNESIUM 2.1 mg/dL (1.9-2.7); POTASSIUM SERUM 4.1 mEq/L (3.5-5.1)
[2017-03-01 05:43] LABS: WHITE BLOOD COUNT 20.8 Th/cmm (4.8-10.8)
[2017-03-01 05:56] LABS: CREATININE - SERUM 5.1 mg/dL (0.6-1.2)
[2017-03-01] MEDS: Clindamycin 600mg/50mL 600 MG/50 ML BAG IV SCH (06:07)
[2017-03-01 08:40] LABS: ANISOCYTOSIS 1+; BAND NEUTROPHILE 4 % (0-10); METAMYELOCYTE 2 % (0-0); NEUTROPHILS 77 % (40-80); PLATELET ESTIMATE DECREASED PLATELETS (NORMAL); PLATELET MORPHOLOGY NORMAL (NORMAL); POLYCHROMASIA 1+; TOTAL CELLS COUNTED 100
[2017-03-01] MEDS: Venelex 60gm Tube TP SCH (08:51)
[2017-03-01] MEDS: Lactobacillus Rhamnosus 10 Billion CFU Capsule PO SCH (08:53)
[2017-03-01] MEDS: MICONAZOLE 2% VG SCH (08:53)
[2017-03-01] MEDS ORDERED: Gentamicin 160 MG in Sodium Chloride 0.9% 100 ML IV SCH (09:00)
[2017-03-01] MEDS ORDERED: Probiotic Screen MC PRN (10:57)
[2017-03-01] MEDS ORDERED: Albumin 25% 25gm/100mL 25 GM/100 ML BTL IV ONE (11:32)
[2017-03-01] MEDS ORDERED: D5-0.45NS 1,000 ML IV SCH (12:43)
[2017-03-01] MEDS ORDERED: Meropenem 500 MG in Sodium Chloride 0.9% 100 ML IV SCH (13:02)
--- NOTE | 2017-03-01 13:12 | General Progress Note ---
Subjective - Review of Systems Service Date: 03/01/17 Subjective: stuporous, comfortable Objective - Results Result Diagrams: 03/01/17 04:30 03/01/17 04:30 Recent Labs: Laboratory Last Values WBC 20.8 Th/cmm (4.8-10.8) H* 03/01/17 04:30 RBC 3.00 Mil/cmm (3.80-5.20) L 03/01/17 04:30 Hgb 9.4 gm/dL (11.7-16.1) L 03/01/17 04:30 Hct 27.7 % (35.0-45.0) L 03/01/17 04:30 MCV 92.1 fl (81-100) 03/01/17 04:30 MCH 31.3 pg (27.0-31.0) H 03/01/17 04:30 MCHC Differential 34.0 pg (28.0-36.0) 03/01/17 04:30 RDW 17.5 % (11.5-20.0) 03/01/17 04:30 Plt Count 71 Th/cmm (150-400) L D 03/01/17 04:30 MPV 7.3 fl 03/01/17 04:30 Neutrophils % 79.9 % (40.0-80.0) 02/27/17 19:30 Band Neutrophils % 4 % (0-10) 03/01/17 04:30 Lymphocytes % 15.4 % (20.0-50.0) L 02/27/17 19:30 Monocytes % 3.8 % (2.0-10.0) 02/27/17 19:30 Eosinophils % 0.8 % (0.0-5.0) 02/27/17 19:30 Basophils % 0.1 % (0.0-2.0) 02/27/17 19:30 Neutrophils (Manual) 77 % (40-80) 03/01/17 04:30 Lymphocytes 9 % (20-50) L 03/01/17 04:30 Monocytes 8 % (2-10) 03/01/17 04:30 Eosinophils 1 % (0-5) 02/28/17 06:55 Metamyelocytes 2 % (0-0) H 03/01/17 04:30 Platelet Estimate DECREASED PLATELETS (NORMAL) 03/01/17 04:30 Platelet Morphology NORMAL (NORMAL) 03/01/17 04:30 Polychromasia 1+ 03/01/17 04:30 Anisocytosis 1+ 03/01/17 04:30 RBC Morph Micro Appear ABNORMAL (NORMAL) 03/01/17 04:30 PT 32.3 SECONDS (9.5-11.5) H 02/27/17 19:30 INR 2.94 (0.5-1.4) H 02/27/17 19:30 PTT (Actin FS) 73.8 SECONDS (26.0-38.0) H 02/27/17 19:30 Sodium 134 mEq/L (136-145) L 03/01/17 04:30 Potassium 4.1 mEq/L (3.5-5.1) 03/01/17 04:30 Chloride 105 mEq/L (98-107) 03/01/17 04:30 Carbon Dioxide 21.7 mEq/L (21.0-31.0) 03/01/17 04:30 Anion Gap 11.4 (7.0-16.0) 03/01/17 04:30 BUN 40 mg/dL (7-25) H 03/01/17 04:30 Creatinine 5.1 mg/dL (0.6-1.2) H* 03/01/17 04:30 Est GFR ( Amer) 10.8 ml/min (>90) 03/01/17 04:30 Est GFR (Non-Af Amer) 8.9 ml/min 03/01/17 04:30 BUN/Creatinine Ratio 7.8 03/01/17 04:30 Glucose 136 mg/dL (70-105) H 03/01/17 04:30 POC Glucose 96 MG/DL (70 - 105) 02/28/17 12:24 Hemoglobin A1c % 4.6 % (4.0-6.0) 02/27/17 19:30 Whole Bld Lactic Acid 1.56 mmol/L (0.60-1.99) 02/27/17 19:30 Calcium 8.6 mg/dL (8.6-10.3) 03/01/17 04:30 Phosphorus 5.4 mg/dL (2.5-5.0) H 02/28/17 06:55 Magnesium 2.1 mg/dL (1.9-2.7) 03/01/17 04:30 Total Bilirubin 2.2 mg/dL (0.3-1.0) H 03/01/17 04:30 AST 40 U/L (13-39) H 03/01/17 04:30 ALT 9 U/L (7-52) 03/01/17 04:30 Alkaline Phosphatase 187 U/L (34-104) H 03/01/17 04:30 Total Protein 5.7 gm/dL (6.0-8.3) L 03/01/17 04:30 Albumin 1.9 gm/dL (3.7-5.3) L 03/01/17 04:30 Globulin 3.8 gm/dL 03/01/17 04:30 Albumin/Globulin Ratio 0.5 (1.0-1.8) L 03/01/17 04:30 Gentamicin Peak 8.8 ug/ml (4.0-8.0) 03/01/17 10:00 Gentamicin Trough ug/ml (0.2-2.0) 03/01/17 08:30 Serum Ketones NEGATIVE (NEGATIVE) 02/27/17 19:30 - Physical Exam Vitals and I&O: Vital Signs Temp 98.8 F 03/01/17 09:00 Pulse 95 03/01/17 09:00 Resp 12 03/01/17 09:00 BP 112/52 03/01/17 09:00 Pulse Ox 98 03/01/17 10:00 Intake & Output 02/28/17 03/01/17 03/01/17 18:59 06:59 18:59 Intake Total 383.605 1549.534 58.909 Output Total 0 Balance 874.800 0096.534 58.909 Weight (lbs) 125.645 kg Intake: Intake, IV Amount 188.891 0833.534 58.909 Clindamycin 600mg/50mL 50 50 600 mg In 50 ml @ 100 mls /hr IV Q8HR [facility] Rx#: [id number] D5-0.45NS 1,000 ml @ 75 1000 mls/hr IV .[id number] [facility] Rx #:[id number] Diltiazem 125 mg In 123.167 125.000 Dextrose 5% 100 ml @ 10 MG/HR 10 mls/hr IV TITR [facility] Rx#:[id number] Levofloxacin 250mg/50mL 50 250 mg In 50 ml @ 50 mls/ hr IV Q48HR [facility] Rx#: [id number] Norepinephrine 4 mg In 98.973 50.534 58.909 Dextrose 5% 250 ml @ Per Protocol IV TITR PRN Rx#: [id number] Oral 60 Other 120 Output: Urine 0 Stool 0 Other: Stool Characteristics Soft Liquid Brown Active Medications: Current Medications Albuterol Sulfate (Albuterol 2.5mg/3ml Neb Ud) 2.5 mg HHN Q2H PRN PRN Reason: Shortness of Breath Stop: 04/29/17 03:59 Ascorbic Acid (Vitamin C) 500 mg PO DAILY [facility] Stop: 04/29/17 08:59 Last Admin: 03/01/17 08:51 Dose: Not Given Cholecalciferol (Vitamin D3) 2,000 iu PO DAILY [facility] Stop: 04/29/17 08:59 Last Admin: 03/01/17 08:51 Dose: Not Given Diphenhydramine HCl (Benadryl) 25 mg PO Q6H PRN PRN Reason: Itching Stop: 04/29/17 03:39 Escitalopram Oxalate (Lexapro) 10 mg PO DAILY [facility] PRN Reason: Protocol Stop: 04/29/17 08:59 Last Admin: 03/01/17 08:52 Dose: Not Given Famotidine (Pepcid) 20 mg PO BID [facility] Stop: 04/29/17 08:59 Last Admin: 03/01/17 08:52 Dose: Not Given Fludrocortisone Acetate (Florinef) 0.1 mg PO BID [facility] Stop: 04/29/17 08:59 Last Admin: 03/01/17 08:52 Dose: Not Given Norepinephrine Bitartrate 4 mg (/ Dextrose) 254 mls @ 0 mls/hr IV TITR PRN; Protocol; Per Protocol PRN Reason: BP MAINTENANCE (PER PROTOCOL) Stop: 04/28/17 23:29 Last Admin: 03/01/17 12:31 Dose: 1.5 mcg/min, 5.71 mls/hr Clindamycin Phosphate (Cleocin Pb) 600 mg in 50 mls @ 100 mls/hr IV Q8HR [facility] Stop: 04/29/17 04:59 Last Admin: 03/01/17 06:07 Dose: 100 mls/hr Diltiazem HCl 125 mg/ Dextrose 125 mls @ 10 mls/hr IV TITR [facility]; 10 MG/HR PRN Reason: Protocol Stop: 04/29/17 04:14 Last Admin: 03/01/17 06:47 Dose: 10 mg/hr, 10 mls/hr Gentamicin Sulfate 160 mg/ (Sodium Chloride) 104 mls @ 200 mls/hr IV Q48H [facility] Stop: 04/30/17 08:59 Last Admin: 03/01/17 09:00 Dose: 200 mls/hr Dextrose/Sodium Chloride (D5-0.45ns) 1,000 mls @ 75 mls/hr IV .[id number] [facility] Stop: 04/29/17 13:08 Last Admin: 03/01/17 05:37 Dose: 75 mls/hr Levofloxacin (Levaquin Pb) 250 mg in 50 mls @ 50 mls/hr IV Q48HR [facility] Stop: 04/29/17 16:59 Last Infusion: 02/28/17 18:15 Dose: Infused Lactobacillus Rhamnosus (Culturelle) 1 each PO DAILY [facility] Stop: 04/29/17 08:59 Last Admin: 03/01/17 08:53 Dose: Not Given Lactobacillus Rhamnosus (Culturelle) 1 each PO DAILY [facility] Stop: 05/01/17 08:59 Metoprolol Tartrate (Lopressor) 50 mg PO Q12HR [facility] Stop: 04/29/17 08:59 Last Admin: 03/01/17 08:53 Dose: Not Given Miconazole Nitrate (Miconazole 2% Cream) 1 appl VG BID [facility] Stop: 03/07/17 08:59 Last Admin: 03/01/17 08:53 Dose: 1 appl Miscellaneous (Clinical Monitoring) 1 ea MC DAILY PRN PRN Reason: RENAL Stop: 04/29/17 10:50 Miscellaneous (Vte Chemical Prophylaxis Screen/ Admission) 1 ea PRN PRN PRN Reason: PROTOCOL Stop: 04/29/17 15:40 Miscellaneous (Probiotic Screen) 1 ea PRN PRN PRN Reason: PROTOCOL Stop: 04/30/17 10:56 Morphine Sulfate (Morphine) 2 mg IVP Q4HR PRN PRN Reason: Pain (Moderate) Stop: 04/28/17 23:23 Last Admin: 03/01/17 03:00 Dose: 2 mg Phytonadione (Mephyton) 10 mg PO TID [facility] Stop: 03/03/17 13:59 Last Admin: 03/01/17 08:54 Dose: Not Given Sevelamer HCl (Renagel) 800 mg PO TIDWM [facility] Stop: 04/30/17 07:59 Last Admin: 03/01/17 08:50 Dose: Not Given Zinc Sulfate (Zinc Sulfate) 220 mg PO DAILY [facility] Stop: 04/29/17 08:59 Last Admin: 03/01/17 08:54 Dose: Not Given General: No acute distress HEENT: Atraumatic, Mucous membr. moist/pink Neck: Supple, +2 carotid pulse wo bruit Cardiovascular: Regular rate, Normal S1, Normal S2 Lungs: Other (few rhonchi) Abdomen: Obese, Other (multiple abd wounds) Extremities: Other (ecchymosis, hematomas, petecchiae), no Edema Neurological: Other (stuporous) Skin: Rash, Other Psych/Mental Status: Mood NL Assessment/Plan - Assessment Assessment: ESRD on HD Acute on chronic nonhealing abdominal wounds status post debridement Severe malnutrition Obesity hypoventilation syndrome Morbid obesity Type 2 diabetes mellitus Essential hypertension Anemia of chronic kidney disease Chronic atrial fibrillation Coronary artery disease - Plan Plan: Lab - Result Diagrams 03/01/17 04:30 03/01/17 04:30 Current Medications Albuterol Sulfate (Albuterol 2.5mg/3ml Neb Ud) 2.5 mg HHN Q2H PRN PRN Reason: Shortness of Breath Stop: 04/29/17 03:59 Ascorbic Acid (Vitamin C) 500 mg PO DAILY [facility] Stop: 04/29/17 08:59 Last Admin: 03/01/17 08:51 Dose: Not Given Cholecalciferol (Vitamin D3) 2,000 iu PO DAILY [facility] Stop: 04/29/17 08:59 Last Admin: 03/01/17 08:51 Dose: Not Given Diphenhydramine HCl (Benadryl) 25 mg PO Q6H PRN PRN Reason: Itching Stop: 04/29/17 03:39 Escitalopram Oxalate (Lexapro) 10 mg PO DAILY [facility] PRN Reason: Protocol Stop: 04/29/17 08:59 Last Admin: 03/01/17 08:52 Dose: Not Given Famotidine (Pepcid) 20 mg PO BID [facility] Stop: 04/29/17 08:59 Last Admin: 03/01/17 08:52 Dose: Not Given Fludrocortisone Acetate (Florinef) 0.1 mg PO BID [facility] Stop: 04/29/17 08:59 Last Admin: 03/01/17 08:52 Dose: Not Given Norepinephrine Bitartrate 4 mg (/ Dextrose) 254 mls @ 0 mls/hr IV TITR PRN; Protocol; Per Protocol PRN Reason: BP MAINTENANCE (PER PROTOCOL) Stop: 04/28/17 23:29 Last Admin: 03/01/17 12:31 Dose: 1.5 mcg/min, 5.71 mls/hr Clindamycin Phosphate (Cleocin Pb) 600 mg in 50 mls @ 100 mls/hr IV Q8HR [facility] Stop: 04/29/17 04:59 Last Admin: 03/01/17 06:07 Dose: 100 mls/hr Diltiazem HCl 125 mg/ Dextrose 125 mls @ 10 mls/hr IV TITR [facility]; 10 MG/HR PRN Reason: Protocol Stop: 04/29/17 04:14 Last Admin: 03/01/17 06:47 Dose: 10 mg/hr, 10 mls/hr Gentamicin Sulfate 160 mg/ (Sodium Chloride) 104 mls @ 200 mls/hr IV Q48H [facility] Stop: 04/30/17 08:59 Last Admin: 03/01/17 09:00 Dose: 200 mls/hr Dextrose/Sodium Chloride (D5-0.45ns) 1,000 mls @ 75 mls/hr IV .[id number] [facility] Stop: 04/29/17 13:08 Last Admin: 03/01/17 05:37 Dose: 75 mls/hr Levofloxacin (Levaquin Pb) 250 mg in 50 mls @ 50 mls/hr IV Q48HR [facility] Stop: 04/29/17 16:59 Last Infusion: 02/28/17 18:15 Dose: Infused Lactobacillus Rhamnosus (Culturelle) 1 each PO DAILY [facility] Stop: 04/29/17 08:59 Last Admin: 03/01/17 08:53 Dose: Not Given Lactobacillus Rhamnosus (Culturelle) 1 each PO DAILY [facility] Stop: 05/01/17 08:59 Metoprolol Tartrate (Lopressor) 50 mg PO Q12HR [facility] Stop: 04/29/17 08:59 Last Admin: 03/01/17 08:53 Dose: Not Given Miconazole Nitrate (Miconazole 2% Cream) 1 appl VG BID [facility] Stop: 03/07/17 08:59 Last Admin: 03/01/17 08:53 Dose: 1 appl Miscellaneous (Clinical Monitoring) 1 ea MC DAILY PRN PRN Reason: RENAL Stop: 04/29/17 10:50 Miscellaneous (Vte Chemical Prophylaxis Screen/ Admission) 1 ea MC PRN PRN PRN Reason: PROTOCOL Stop: 04/29/17 15:40 Miscellaneous (Probiotic Screen) 1 ea MC PRN PRN PRN Reason: PROTOCOL Stop: 04/30/17 10:56 Morphine Sulfate (Morphine) 2 mg IVP Q4HR PRN PRN Reason: Pain (Moderate) Stop: 04/28/17 23:23 Last Admin: 03/01/17 03:00 Dose: 2 mg Phytonadione (Mephyton) 10 mg PO TID [facility] Stop: 03/03/17 13:59 Last Admin: 03/01/17 08:54 Dose: Not Given Sevelamer HCl (Renagel) 800 mg PO TIDWM [facility] Stop: 04/30/17 07:59 Last Admin: 03/01/17 08:50 Dose: Not Given Zinc Sulfate (Zinc Sulfate) 220 mg PO DAILY [facility] Stop: 04/29/17 08:59 Last Admin: 03/01/17 08:54 Dose: Not Given Currently being dialyzed Blood pressure supported by levothyroid at 20 mcg/m Will decrease IV fluids due to possible fluid overload Possible debridement in a.m. Nutritional Asmnt/Malnutr-PDOC - Dietary Evaluation Malnutrition Findings (Please click <Entered> for more info): Nutritional Asmnt/Malnutrition Start: 02/28/17 14: 25 Text: Status: Complete Freq: Document 02/28/17 14:32 GSUN (Rec: 02/28/17 14:52 [id number]) Nutritional Asmnt/Malnutrition Patient General Information Nutritional Screening High Risk Screening Diagnosis Infectured multiple abdominal wound, sepsis, hypotension Pertinent Medical Hx/Surgical Hx DM, end stage renal failure, obesity, multiple abdominal wound, anemia Subjective Information 71 [address] consult for wounds/calciphylaxis. Pt was lethargic during visit, spoke to at bedside. Briefly explained renal diet, agreeable to plan, not suitble for extensive edu at this time. Pt appeared obese. Pt reported UBW 250lb measured 1 month ago, pt is unsure of dry weight at dialysis center. Pt reported has gradually lost weight 80lb over the past year due to poor appetite and hospitalizations. RD recommended oral supplements, pt denied, stating she has tried and threw up. Current Diet Order/ Nutrition Support Renal, 1800kcal Pertinent Medications Vitamin C, Vitamin D3, D5-0. 45ns, Pepcid, Novolog, Culturelle, Morphine, Zinc Sulfate Pertinent Labs 02/28: BUN 38H, creatinine 5H, phosphorus 5.4H Nutritional Hx/Data Height 1.63 m Height (Calculated Centimeters) 162.6 Current Weight (lbs) 113.398 kg Weight (Calculated Kilograms) 113.4 Weight (Calculated Grams) 402311.1 [place] [facility] Body Weight 120 Recent Weight Change Yes Weight Status Morbidly Obese GI Symptoms Skin Integrity/Comment: Bilateral lower extremities pitting 3+. Abdominal wounds/ calciphylaxis Estimated Nutritional Goals BEE in Kcals: Adj wt of IBW Calories/Kcals/Kg AdjBW 152.5lb/69.3kg (adjsuted to UBW) Kcals Calculated 2079-2426kcal (30-35kcal/kg) Protein: Adj wt of IBW Protein Calculated 90-104g (1.2-1.5/gkg) Fluid: ml 2079-2426ml (1ml/kcal) Nutritional Problem 3. Problem Problem Malnutrition related to Etiology unknown etiology, energy imbalance aeb Signs/Symptoms: BMI >40 2. Problem Problem Increased kcal and prot needs related to Etiology hypermetabolic state aeb Signs/Symptoms: on HD, sepsis 1. Problem Problem Impaired nutrient utilization related to Etiology end stage renal failure aeb Signs/Symptoms: on HD, BUN 38H, creatinine 5H, phosphorus 5.4H Malnutrition Related to Morbid Obesity Malnutrition related to morbid obesity BMI> or equal to 40 Query Text:(Any 1 Criteria met) Malnutrition related to morbid obesity Yes Intervention/Recommendation Comments 1. Recommend renal diet. Briefly explained renal diet, pt is agreeable to plan. Encourage PO intake. 2. Recommend removing " 1800kcal" restriction as pt is in hypermetabolic state ( sepsis, HD) and obese, requiring more than 1800kcal, weight loss not favorable at this time. 3. Pt reported poor appetite many months, RD recommend oral supplements, pt declined. Expected Outcomes/Goals Expected Outcomes/Goals 1. PO intake to meet at least 75% of estimated nutritional needs.
[2017-03-01 13:33] LABS: HEMATOCRIT 27.6 % (35.0-45.0); HEMOGLOBIN 9.1 gm/dL (11.7-16.1); MEAN CELL VOLUME 90.8 fl (81-100); MEAN CORPUSCULAR HGB CONC 33.1 pg (28.0-36.0); MEAN PLATELET VOLUME 7.3 fl; PLATELET COUNT 70 Th/cmm (150-400); RED BLOOD COUNT 3.04 Mil/cmm (3.80-5.20); RED CELL DISTRIBUTION WIDTH 17.7 % (11.5-20.0)
[2017-03-01 13:41] LABS: WHITE BLOOD COUNT 23.8 Th/cmm (4.8-10.8)
[2017-03-01 13:46] LABS: ALB/GLOB RATIO 0.9 (1.0-1.8); ANION GAP 10.4 (7.0-16.0); BILIRUBIN,TOTAL 2.5 mg/dL (0.3-1.0); BUN/CREATININE RATIO 7.3; CALCIUM SERUM 8.6 mg/dL (8.6-10.3); CARBON DIOXIDE 26.2 mEq/L (21.0-31.0); CREATININE - SERUM 2.2 mg/dL (0.6-1.2)
[2017-03-01 14:04] LABS: POTASSIUM SERUM 2.6 mEq/L (3.5-5.1)
--- NOTE | 2017-03-01 14:08 | Diagnostic Imaging Report ---
CHEST X-RAY: AP view INDICATION: Sepsis COMPARISON: None FINDINGS: Right dialysis catheter is seen with tip in the SVC. Congestive changes are seen with large left effusion. Cardiomegaly is noted. IMPRESSION: Congestive changes and large left effusion. Pneumonia of the left lung cannot be excluded. Cardiomegaly.
[2017-03-01 14:10] LABS: BAND NEUTROPHILE 5 % (0-10); BASOPHIL 1 % (0-3); EOSINOPHIL 2 % (0-5); NEUTROPHILS 76 % (40-80); TOTAL CELLS COUNTED 100
[2017-03-01 14:11] LABS: ANISOCYTOSIS 1+; PLATELET ESTIMATE DECREASED PLATELETS (NORMAL); PLATELET MORPHOLOGY NORMAL (NORMAL)
[2017-03-01] MEDS: Meropenem 500 MG in Sodium Chloride 0.9% 100 ML IV SCH ×2 (14:28→23:39)
[2017-03-01 16:21] LABS: ALB/GLOB RATIO 0.8 (1.0-1.8); ANION GAP 10.2 (7.0-16.0); BILIRUBIN,TOTAL 2.4 mg/dL (0.3-1.0); BUN/CREATININE RATIO 7.4; CALCIUM SERUM 8.4 mg/dL (8.6-10.3); CARBON DIOXIDE 22.1 mEq/L (21.0-31.0); CREATININE - SERUM 3.8 mg/dL (0.6-1.2); POTASSIUM SERUM 3.3 mEq/L (3.5-5.1)
--- NOTE | 2017-03-01 16:21 | General Progress Note ---
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 Objective - Results Result Diagrams: 03/01/17 12:26 03/01/17 12:26 Recent Labs: Laboratory Last Values WBC 23.8 Th/cmm (4.8-10.8) H* 03/01/17 12:26 RBC 3.04 Mil/cmm (3.80-5.20) L 03/01/17 12:26 Hgb 9.1 gm/dL (11.7-16.1) L 03/01/17 12:26 Hct 27.6 % (35.0-45.0) L 03/01/17 12:26 MCV 90.8 fl (81-100) 03/01/17 12: MCH 30.0 pg (27.0-31.0) 03/01/17 12: MCHC Differential 33.1 pg (28.0-36.0) 03/01/17 12: RDW 17.7 % (11.5-20.0) 03/01/17 12:26 Plt Count 70 Th/cmm (150-400) L 03/01/17 12: MPV 7.3 fl 03/01/17 12: Neutrophils % 79.9 % (40.0-80.0) 02/27/17 19:30 Band Neutrophils % 5 % (0-10) 03/01/17 12: Lymphocytes % 15.4 % (20.0-50.0) L 02/27/17 19:30 Monocytes % 3.8 % (2.0-10.0) 02/27/17 19:30 Eosinophils % 0.8 % (0.0-5.0) 02/27/17 19:30 Basophils % 0.1 % (0.0-2.0) 02/27/17 19:30 Neutrophils (Manual) 76 % (40-80) 03/01/17 12: Lymphocytes 13 % (20-50) L 03/01/17 12:26 Monocytes 3 % (2-10) 03/01/17 12:26 Eosinophils 2 % (0-5) 03/01/17 12:26 Basophils 1 % (0-3) 03/01/17 12:26 Metamyelocytes 2 % (0-0) H 03/01/17 04:30 Platelet Estimate DECREASED PLATELETS (NORMAL) 03/01/17 12:26 Platelet Morphology NORMAL (NORMAL) 03/01/17 12:26 Polychromasia 1+ 03/01/17 04:30 Anisocytosis 1+ 03/01/17 12:26 RBC Morph Micro Appear ABNORMAL (NORMAL) 03/01/17 12:26 PT 32.3 SECONDS (9.5-11.5) H 02/27/17 19:30 INR 2.94 (0.5-1.4) H 02/27/17 19:30 PTT (Actin FS) 73.8 SECONDS (26.0-38.0) H 02/27/17 19:30 Sodium 135 mEq/L (136-145) L 03/01/17 12:26 Potassium 2.6 mEq/L (3.5-5.1) L* D 03/01/17 12:26 Chloride 101 mEq/L (98-107) 03/01/17 12:26 Carbon Dioxide 26.2 mEq/L (21.0-31.0) 03/01/17 12:26 Anion Gap 10.4 (7.0-16.0) 03/01/17 12:26 BUN 16 mg/dL (7-25) 03/01/17 12:26 Creatinine 2.2 mg/dL (0.6-1.2) H 03/01/17 12:26 Est GFR ( Amer) 28.5 ml/min (>90) 03/01/17 12:26 Est GFR (Non-Af Amer) 23.5 ml/min 03/01/17 12:26 BUN/Creatinine Ratio 7.3 03/01/17 12:26 Glucose 189 mg/dL (70-105) H 03/01/17 12:26 POC Glucose 96 MG/DL (70 - 105) 02/28/17 12:24 Hemoglobin A1c % 4.6 % (4.0-6.0) 02/27/17 19:30 Whole Bld Lactic Acid 0.75 mmol/L (0.60-1.99) 03/01/17 12:26 Calcium 8.6 mg/dL (8.6-10.3) 03/01/17 12:26 Phosphorus 5.4 mg/dL (2.5-5.0) H 02/28/17 06:55 Magnesium 2.1 mg/dL (1.9-2.7) 03/01/17 04:30 Total Bilirubin 2.5 mg/dL (0.3-1.0) H 03/01/17 12:26 AST 34 U/L (13-39) 03/01/17 12:26 ALT 8 U/L (7-52) 03/01/17 12:26 Alkaline Phosphatase 182 U/L (34-104) H 03/01/17 12:26 Total Protein 6.7 gm/dL (6.0-8.3) 03/01/17 12:26 Albumin 3.1 gm/dL (3.7-5.3) L 03/01/17 12:26 Globulin 3.6 gm/dL 03/01/17 12:26 Albumin/Globulin Ratio 0.9 (1.0-1.8) L 03/01/17 12:26 Gentamicin Peak 8.8 ug/ml (4.0-8.0) 03/01/17 10:00 Gentamicin Trough ug/ml (0.2-2.0) 03/01/17 08:30 Serum Ketones NEGATIVE (NEGATIVE) 02/27/17 19:30 - Physical Exam Vitals and I&O: Vital Signs Temp 96.6 F 03/01/17 16:00 Pulse 101 03/01/17 16:00 Resp 16 03/01/17 16:00 BP 120/55 03/01/17 16:00 Pulse Ox 97 03/01/17 16:00 Intake & Output 02/28/17 03/01/17 03/01/17 18:59 06:59 18:59 Intake Total 878.728 6543.534 69.663 Output Total 0 Balance 955.364 5935.534 69.663 Weight (lbs) 125.645 kg Intake: Intake, IV Amount 946.715 5543.534 69.663 Clindamycin 600mg/50mL 50 50 600 mg In 50 ml @ 100 mls /hr IV Q8HR [facility] Rx#: [id number] D5-0.45NS 1,000 ml @ 75 1000 mls/hr IV .[id number] [facility] Rx #:[id number] Diltiazem 125 mg In 123.167 125.000 Dextrose 5% 100 ml @ 10 MG/HR 10 mls/hr IV TITR [facility] Rx#:[id number] Levofloxacin 250mg/50mL 50 250 mg In 50 ml @ 50 mls/ hr IV Q48HR [facility] Rx#: [id number] Norepinephrine 4 mg In 98.973 50.534 69.663 Dextrose 5% 250 ml @ Per Protocol IV TITR [facility] Rx#: [id number] Oral 60 Other 120 Output: Urine 0 Stool 0 Other: Stool Characteristics Soft Soft Liquid Liquid Brown Active Medications: Current Medications Albuterol Sulfate (Albuterol 2.5mg/3ml Neb Ud) 2.5 mg HHN Q2H PRN PRN Reason: Shortness of Breath Stop: 04/29/17 03:59 Ascorbic Acid (Vitamin C) 500 mg PO DAILY [facility] Stop: 04/29/17 08:59 Last Admin: 03/01/17 08:51 Dose: Not Given Cholecalciferol (Vitamin D3) 2,000 iu PO DAILY [facility] Stop: 04/29/17 08:59 Last Admin: 03/01/17 08:51 Dose: Not Given Diphenhydramine HCl (Benadryl) 25 mg PO Q6H PRN PRN Reason: Itching Stop: 04/29/17 03:39 Escitalopram Oxalate (Lexapro) 10 mg PO DAILY [facility] PRN Reason: Protocol Stop: 04/29/17 08:59 Last Admin: 03/01/17 08:52 Dose: Not Given Famotidine (Pepcid) 20 mg IVP DAILY [facility] Stop: 05/01/17 08:59 Fludrocortisone Acetate (Florinef) 0.1 mg PO BID [facility] Stop: 04/29/17 08:59 Last Admin: 03/01/17 08:52 Dose: Not Given Diltiazem HCl 125 mg/ Dextrose 125 mls @ 10 mls/hr IV TITR [facility]; 10 MG/HR PRN Reason: Protocol Stop: 04/29/17 04:14 Last Admin: 03/01/17 06:47 Dose: 10 mg/hr, 10 mls/hr Tigecycline 50 mg/ Sodium (Chloride) 100 mls @ 100 mls/hr IV Q12H [facility] Stop: 04/30/17 11:29 Last Admin: 03/01/17 14:27 Dose: 100 mls/hr Meropenem 500 mg/ Sodium (Chloride) 100 mls @ 100 mls/hr IV Q12H [facility] Stop: 04/30/17 11:44 Last Admin: 03/01/17 14:28 Dose: 100 mls/hr Dextrose/Sodium Chloride (D5-0.45ns) 1,000 mls @ 40 mls/hr IV .Q24H [facility] Stop: 04/29/17 13:08 Phytonadione 10 mg/ Dextrose 101 mls @ 100 mls/hr IV Q2H [facility] Stop: 03/01/17 19:16 Lactobacillus Rhamnosus (Culturelle) 1 each PO DAILY [facility] Stop: 05/01/17 08:59 Metoprolol Tartrate (Lopressor) 50 mg PO Q12HR [facility] Stop: 04/29/17 08:59 Last Admin: 03/01/17 08:53 Dose: Not Given Miconazole Nitrate (Miconazole 2% Cream) 1 appl VG BID [facility] Stop: 03/07/17 08:59 Last Admin: 03/01/17 08:53 Dose: 1 appl Miscellaneous (Clinical Monitoring) 1 ea DAILY PRN PRN Reason: RENAL Stop: 04/29/17 10:50 Miscellaneous (Vte Chemical Prophylaxis Screen/ Admission) 1 [facility] PRN PRN PRN Reason: PROTOCOL Stop: 04/29/17 15:40 Miscellaneous (Probiotic Screen) 1 [facility] PRN PRN PRN Reason: PROTOCOL Stop: 04/30/17 10:56 Morphine Sulfate (Morphine) 2 mg IVP Q4HR PRN PRN Reason: Pain (Moderate) Stop: 04/28/17 23:23 Last Admin: 03/01/17 03:00 Dose: 2 mg Sevelamer HCl (Renagel) 800 mg PO TIDWM [facility] Stop: 04/30/17 07:59 Last Admin: 03/01/17 08:50 Dose: Not Given Zinc Sulfate (Zinc Sulfate) 220 mg PO DAILY [facility] Stop: 04/29/17 08:59 Last Admin: 03/01/17 08:54 Dose: Not Given General: No acute distress HEENT: Atraumatic, Mucous membr. moist/pink Neck: Supple, +2 carotid pulse wo bruit Cardiovascular: Regular rate, Normal S1, Normal S2 Lungs: Other (few rhonchi) Abdomen: Obese, Other (multiple abd wounds) Extremities: Other (ecchymosis, hematomas, petecchiae), no Edema Neurological: Other (stuporous) Skin: Rash, Other Psych/Mental Status: Mood NL Nutritional Asmnt/Malnutr-PDOC - Dietary Evaluation Malnutrition Findings (Please click <Entered> for more info): Nutritional Asmnt/Malnutrition Start: 02/28/17 14: 25 Text: Status: Complete Freq: Document 02/28/17 14:32 GSUN (Rec: 02/28/17 14:52 [email or web address] [email or web address]) Nutritional Asmnt/Malnutrition Patient General Information Nutritional Screening High Risk Screening Diagnosis Infectured multiple abdominal wound, sepsis, hypotension Pertinent Medical Hx/Surgical Hx DM, end stage renal failure, obesity, multiple abdominal wound, anemia Subjective Information 71 [address] consult for wounds/calciphylaxis. Pt was lethargic during visit, spoke to at bedside. Briefly explained renal diet, agreeable to plan, not suitble for extensive edu at this time. Pt appeared obese. Pt reported UBW 250lb measured 1 month ago, pt is unsure of dry weight at dialysis center. Pt reported has gradually lost weight 80lb over the past year due to poor appetite and hospitalizations. RD recommended oral supplements, pt denied, stating she has tried and threw up. Current Diet Order/ Nutrition Support Renal, 1800kcal Pertinent Medications Vitamin C, Vitamin D3, D5-0. 45ns, Pepcid, Novolog, Culturelle, Morphine, Zinc Sulfate Pertinent Labs /: BUN 38H, creatinine 5H, phosphorus 5.4H Nutritional Hx/Data Height 1.63 m Height (Calculated Centimeters) 162.6 Current Weight (lbs) 113.398 kg Weight (Calculated Kilograms) 113.4 Weight (Calculated Grams) 449441.1 [place] Body Weight 120 Recent Weight Change Yes Weight Status Morbidly Obese GI Symptoms Skin Integrity/Comment: Bilateral lower extremities pitting 3+. Abdominal wounds/ calciphylaxis Estimated Nutritional Goals BEE in Kcals: Adj wt of IBW Calories/Kcals/Kg AdjBW 152.5lb/69.3kg (adjsuted to UBW) Kcals Calculated 2079-2426kcal (30-35kcal/kg) Protein: Adj wt of IBW Protein Calculated 90-104g (1.2-1.5/gkg) Fluid: ml 2079-2426ml (1ml/kcal) Nutritional Problem 3. Problem Problem Malnutrition related to Etiology unknown etiology, energy imbalance aeb Signs/Symptoms: BMI >40 2. Problem Problem Increased kcal and prot needs related to Etiology hypermetabolic state aeb Signs/Symptoms: on HD, sepsis 1. Problem Problem Impaired nutrient utilization related to Etiology end stage renal failure aeb Signs/Symptoms: on HD, BUN 38H, creatinine 5H, phosphorus 5.4H Malnutrition Related to Morbid Obesity Malnutrition related to morbid obesity BMI> or equal to 40 Query Text:(Any 1 Criteria met) Malnutrition related to morbid obesity Yes Intervention/Recommendation Comments 1. Recommend renal diet. Briefly explained renal diet, pt is agreeable to plan. Encourage PO intake. 2. Recommend removing " 1800kcal" restriction as pt is in hypermetabolic state ( sepsis, HD) and obese, requiring more than 1800kcal, weight loss not favorable at this time. 3. Pt reported poor appetite many months, RD recommend oral supplements, pt declined. Expected Outcomes/Goals Expected Outcomes/Goals 1. PO intake to meet at least 75% of estimated nutritional needs.
[2017-03-01 16:34] LABS: PROTHROMBIN TIME (TEST) 46.3 SECONDS (9.5-11.5)
[2017-03-01 16:57] LABS: INR 4.13 (0.5-1.4)
--- NOTE | 2017-03-01 18:17 | Internal Medicine Prog Note ---
Internal Medicine Subjective - Subjective Service Date: 03/01/17 Patient seen and examined:: with staff, without staff Patient is:: awake, verbal Per staff patient has:: poor appetite, tolerating meds Internal Medicine Objective - Results Result Diagrams: 03/01/17 12:26 03/01/17 15:56 Recent Labs: Laboratory Last Values WBC 23.8 Th/cmm (4.8-10.8) H* 03/01/17 12:26 RBC 3.04 Mil/cmm (3.80-5.20) L 03/01/17 12:26 Hgb 9.1 gm/dL (11.7-16.1) L 03/01/17 12:26 Hct 27.6 % (35.0-45.0) L 03/01/17 12:26 MCV 90.8 fl (81-100) 03/01/17 12:26 MCH 30.0 pg (27.0-31.0) 03/01/17 12: MCHC Differential 33.1 pg (28.0-36.0) 03/01/17 12:26 RDW 17.7 % (11.5-20.0) 03/01/17 12:26 Plt Count 70 Th/cmm (150-400) L 03/01/17 12:26 MPV 7.3 fl 03/01/17 12:26 Neutrophils % 79.9 % (40.0-80.0) 02/27/17 19:30 Band Neutrophils % 5 % (0-10) 03/01/17 12: Lymphocytes % 15.4 % (20.0-50.0) L 02/27/17 19:30 Monocytes % 3.8 % (2.0-10.0) 02/27/17 19:30 Eosinophils % 0.8 % (0.0-5.0) 02/27/17 19:30 Basophils % 0.1 % (0.0-2.0) 02/27/17 19:30 Neutrophils (Manual) 76 % (40-80) 03/01/17 12:26 Lymphocytes 13 % (20-50) L 03/01/17 12:26 Monocytes 3 % (2-10) 03/01/17 12:26 Eosinophils 2 % (0-5) 03/01/17 12:26 Basophils 1 % (0-3) 03/01/17 12:26 Metamyelocytes 2 % (0-0) H 03/01/17 04:30 Platelet Estimate DECREASED PLATELETS (NORMAL) 03/01/17 12:26 Platelet Morphology NORMAL (NORMAL) 03/01/17 12:26 Polychromasia 1+ 03/01/17 04:30 Anisocytosis 1+ 03/01/17 12:26 RBC Morph Micro Appear ABNORMAL (NORMAL) 03/01/17 12:26 PT 46.3 SECONDS (9.5-11.5) H 03/01/17 12:26 INR 4.13 (0.5-1.4) H* D 03/01/17 12:26 PTT (Actin FS) 93.7 SECONDS (26.0-38.0) H* 03/01/17 12:26 Sodium 132 mEq/L (136-145) L 03/01/17 15:56 Potassium 3.3 mEq/L (3.5-5.1) L 03/01/17 15:56 Chloride 103 mEq/L (98-107) 03/01/17 15:56 Carbon Dioxide 22.1 mEq/L (21.0-31.0) 03/01/17 15:56 Anion Gap 10.2 (7.0-16.0) 03/01/17 15:56 BUN 28 mg/dL (7-25) H 03/01/17 15:56 Creatinine 3.8 mg/dL (0.6-1.2) H 03/01/17 15:56 Est GFR ( Amer) 15.1 ml/min (>90) 03/01/17 15:56 Est GFR (Non-Af Amer) 12.5 ml/min 03/01/17 15:56 BUN/Creatinine Ratio 7.4 03/01/17 15:56 Glucose 174 mg/dL (70-105) H 03/01/17 15:56 POC Glucose 96 MG/DL (70 - 105) 02/28/17 12:24 Hemoglobin A1c % 4.6 % (4.0-6.0) 02/27/17 19:30 Whole Bld Lactic Acid 1.39 mmol/L (0.60-1.99) 03/01/17 15:56 Calcium 8.4 mg/dL (8.6-10.3) L 03/01/17 15:56 Phosphorus 5.4 mg/dL (2.5-5.0) H 02/28/17 06:55 Magnesium 2.1 mg/dL (1.9-2.7) 03/01/17 04:30 Total Bilirubin 2.4 mg/dL (0.3-1.0) H 03/01/17 15:56 AST 28 U/L (13-39) 03/01/17 15:56 ALT 6 U/L (7-52) L 03/01/17 15:56 Alkaline Phosphatase 148 U/L (34-104) H 03/01/17 15:56 Total Protein 5.6 gm/dL (6.0-8.3) L 03/01/17 15:56 Albumin 2.5 gm/dL (3.7-5.3) L 03/01/17 15:56 Globulin 3.1 gm/dL 03/01/17 15:56 Albumin/Globulin Ratio 0.8 (1.0-1.8) L 03/01/17 15:56 Gentamicin Peak 8.8 ug/ml (4.0-8.0) 03/01/17 10:00 Gentamicin Trough ug/ml (0.2-2.0) 03/01/17 08:30 Serum Ketones NEGATIVE (NEGATIVE) 02/27/17 19:30 - Physical Exam Vitals and I&O: Vital Signs Temp 96.6 F 03/01/17 16:00 Pulse 94 03/01/17 16:15 Resp 16 03/01/17 16:00 BP 115/54 03/01/17 16:15 Pulse Ox 97 03/01/17 16:00 Intake & Output 02/28/17 03/01/17 03/01/17 18:59 06:59 18:59 Intake Total 378.247 6894.534 69.663 Output Total 0 Balance 844.742 8800.534 69.663 Weight (lbs) 125.645 kg Intake: Intake, IV Amount 640.917 9827.534 69.663 Clindamycin 600mg/50mL 50 50 600 mg In 50 ml @ 100 mls /hr IV Q8HR [facility] Rx#: [id number] D5-0.45NS 1,000 ml @ 75 1000 mls/hr IV .[id number] [facility] Rx #:[id number] Diltiazem 125 mg In 123.167 125.000 Dextrose 5% 100 ml @ 10 MG/HR 10 mls/hr IV TITR [facility] Rx#:[id number] Levofloxacin 250mg/50mL 50 250 mg In 50 ml @ 50 mls/ hr IV Q48HR [facility] Rx#: [id number] Norepinephrine 4 mg In 98.973 50.534 69.663 Dextrose 5% 250 ml @ Per Protocol IV TITR [facility] Rx#: [id number] Oral 60 Other 120 Output: Urine 0 Stool 0 Other: Stool Characteristics Soft Soft Liquid Liquid Brown Active Medications: Current Medications Albuterol Sulfate (Albuterol 2.5mg/3ml Neb Ud) 2.5 mg HHN Q2H PRN PRN Reason: Shortness of Breath Stop: 04/29/17 03:59 Ascorbic Acid (Vitamin C) 500 mg PO DAILY [facility] Stop: 04/29/17 08:59 Last Admin: 03/01/17 08:51 Dose: Not Given Cholecalciferol (Vitamin D3) 2,000 iu PO DAILY [facility] Stop: 04/29/17 08:59 Last Admin: 03/01/17 08:51 Dose: Not Given Diphenhydramine HCl (Benadryl) 25 mg PO Q6H PRN PRN Reason: Itching Stop: 04/29/17 03:39 Escitalopram Oxalate (Lexapro) 10 mg PO DAILY [facility] PRN Reason: Protocol Stop: 04/29/17 08:59 Last Admin: 03/01/17 08:52 Dose: Not Given Famotidine (Pepcid) 20 mg IVP DAILY [facility] Stop: 05/01/17 08:59 Fludrocortisone Acetate (Florinef) 0.1 mg PO BID [facility] Stop: 04/29/17 08:59 Last Admin: 03/01/17 08:52 Dose: Not Given Diltiazem HCl 125 mg/ Dextrose 125 mls @ 10 mls/hr IV TITR [facility]; 10 MG/HR PRN Reason: Protocol Stop: 04/29/17 04:14 Last Admin: 03/01/17 06:47 Dose: 10 mg/hr, 10 mls/hr Tigecycline 50 mg/ Sodium (Chloride) 100 mls @ 100 mls/hr IV Q12H [facility] Stop: 04/30/17 11:29 Last Admin: 03/01/17 14:27 Dose: 100 mls/hr Meropenem 500 mg/ Sodium (Chloride) 100 mls @ 100 mls/hr IV Q12H [facility] Stop: 04/30/17 11:44 Last Admin: 03/01/17 14:28 Dose: 100 mls/hr Dextrose/Sodium Chloride (D5-0.45ns) 1,000 mls @ 40 mls/hr IV .Q24H [facility] Stop: 04/29/17 13:08 Phytonadione 10 mg/ Dextrose 101 mls @ 100 mls/hr IV Q2H [facility] Stop: 03/01/17 19:16 Norepinephrine Bitartrate 8 mg (/ Dextrose) 250 mls @ 0 mls/hr IV PRN [facility] Stop: 04/30/17 16:29 Last Admin: 03/01/17 17:35 Dose: 14 mls/hr Lactobacillus Rhamnosus (Culturelle) 1 each PO DAILY [facility] Stop: 05/01/17 08:59 Metoprolol Tartrate (Lopressor) 50 mg PO Q12HR [facility] Stop: 04/29/17 08:59 Last Admin: 03/01/17 08:53 Dose: Not Given Miconazole Nitrate (Miconazole 2% Cream) 1 appl VG BID [facility] Stop: 03/07/17 08:59 Last Admin: 03/01/17 08:53 Dose: 1 appl Miscellaneous (Clinical Monitoring) 1 ea [facility] DAILY PRN PRN Reason: RENAL Stop: 04/29/17 10:50 Miscellaneous (Vte Chemical Prophylaxis Screen/ Admission) 1 ea [facility] PRN PRN PRN Reason: PROTOCOL Stop: 04/29/17 15:40 Miscellaneous (Probiotic Screen) 1 ea [facility] PRN PRN PRN Reason: PROTOCOL Stop: 04/30/17 10:56 Miscellaneous (Tpn Per Pharmacy) 1 ea [facility] PRN PRN PRN Reason: PROTOCOL Stop: 04/30/17 18:13 Morphine Sulfate (Morphine) 2 mg IVP Q4HR PRN PRN Reason: Pain (Moderate) Stop: 04/28/17 23:23 Last Admin: 03/01/17 03:00 Dose: 2 mg Sevelamer HCl (Renagel) 800 mg PO TIDWM [facility] Stop: 04/30/17 07:59 Last Admin: 03/01/17 08:50 Dose: Not Given Zinc Sulfate (Zinc Sulfate) 220 mg PO DAILY [facility] Stop: 04/29/17 08:59 Last Admin: 03/01/17 08:54 Dose: Not Given General: weak, lethargic, obese HEENT: NC/AT, PERRLA, EOMI, anicteric sclerae Neck: Supple, No JVD, No thyromegaly, +2 carotid pulse wo bruit Cardiovascular: RRR, Normal S1, Normal S2, tachy Abdomen: soft, tender, positive bowel sound Extremities: edema Neurological: no change (abdominal wall significant for multiple stage 4 opened wounds) Internal Medicine Assmt/Plan - Assessment Assessment: 1'MULTIPLE CALCIPHYLAXIS WOUND OF THE ABDOMINAL WALL 2.DM. 3.SEPSIS. 4.ESRF 5.SEPSIS. 6.POOR INTAKE. - Plan Plan: CONTINUE ON CURRENT MEDICATION AND DIET.VIT K10MG [id number] IV OVER 2H. Nutritional Asmnt/Malnutr-PDOC - Dietary Evaluation Malnutrition Findings (Please click <Entered> for more info): Nutritional Asmnt/Malnutrition Start: 02/28/17 14: 25 Text: Status: Complete Freq: Document 02/28/17 14:32 GSUN (Rec: 02/28/17 14:52 [email or web address] [email or web address]) Nutritional Asmnt/Malnutrition Patient General Information Nutritional Screening High Risk Screening Diagnosis Infectured multiple abdominal wound, sepsis, hypotension Pertinent Medical Hx/Surgical Hx DM, end stage renal failure, obesity, multiple abdominal wound, anemia Subjective Information 71 [address] consult for wounds/calciphylaxis. Pt was lethargic during visit, spoke to at bedside. Briefly explained renal diet, agreeable to plan, not suitble for extensive edu at this time. Pt appeared obese. Pt reported UBW 250lb measured 1 month ago, pt is unsure of dry weight at dialysis center. Pt reported has gradually lost weight 80lb over the past year due to poor appetite and hospitalizations. RD recommended oral supplements, pt denied, stating she has tried and threw up. Current Diet Order/ Nutrition Support Renal, 1800kcal Pertinent Medications Vitamin C, Vitamin D3, D5-0. 45ns, Pepcid, Novolog, Culturelle, Morphine, Zinc Sulfate Pertinent Labs 02/28: BUN 38H, creatinine 5H, phosphorus 5.4H Nutritional Hx/Data Height 1.63 m Height (Calculated Centimeters) 162.6 Current Weight (lbs) 113.398 kg Weight (Calculated Kilograms) 113.4 Weight (Calculated Grams) 719774.1 [place] Body Weight 120 Recent Weight Change Yes Weight Status Morbidly Obese GI Symptoms Skin Integrity/Comment: Bilateral lower extremities pitting 3+. Abdominal wounds/ calciphylaxis Estimated Nutritional Goals BEE in Kcals: Adj wt of IBW Calories/Kcals/Kg AdjBW 152.5lb/69.3kg (adjsuted to UBW) Kcals Calculated 2078-2426kcal (30-35kcal/kg) Protein: Adj wt of IBW Protein Calculated 90-104g (1.2-1.5/gkg) Fluid: ml 2079-2426ml (1ml/kcal) Nutritional Problem 3. Problem Problem Malnutrition related to Etiology unknown etiology, energy imbalance aeb Signs/Symptoms: BMI >40 2. Problem Problem Increased kcal and prot needs related to Etiology hypermetabolic state aeb Signs/Symptoms: on HD, sepsis 1. Problem Problem Impaired nutrient utilization related to Etiology end stage renal failure aeb Signs/Symptoms: on HD, BUN 38H, creatinine 5H, phosphorus 5.4H Malnutrition Related to Morbid Obesity Malnutrition related to morbid obesity BMI> or equal to 40 Query Text:(Any 1 Criteria met) Malnutrition related to morbid obesity Yes Intervention/Recommendation Comments 1. Recommend renal diet. Briefly explained renal diet, pt is agreeable to plan. Encourage PO intake. 2. Recommend removing " 1800kcal" restriction as pt is in hypermetabolic state ( sepsis, HD) and obese, requiring more than 1800kcal, weight loss not favorable at this time. 3. Pt reported poor appetite many months, RD recommend oral supplements, pt declined. Expected Outcomes/Goals Expected Outcomes/Goals 1. PO intake to meet at least 75% of estimated nutritional needs.
[2017-03-01] MEDS ORDERED: Diltiazem 5 mg/mL 25mL Vial IV ONE (18:55)
[2017-03-02 06:07] LABS: MEAN CELL VOLUME 90.1 fl (81-100); MEAN CORPUSCULAR HEMOGLOBIN 30.8 pg (27.0-31.0); MEAN CORPUSCULAR HGB CONC 34.2 pg (28.0-36.0); MEAN PLATELET VOLUME 7.9 fl; RED BLOOD COUNT 2.61 Mil/cmm (3.80-5.20); RED CELL DISTRIBUTION WIDTH 17.5 % (11.5-20.0)
[2017-03-02 06:14] LABS: ANION GAP 10.3 (7.0-16.0); BUN/CREATININE RATIO 7.5; CALCIUM SERUM 8.2 mg/dL (8.6-10.3); CARBON DIOXIDE 22.2 mEq/L (21.0-31.0); MAGNESIUM 1.8 mg/dL (1.9-2.7); PHOSPHOROUS 3.7 mg/dL (2.5-5.0); POTASSIUM SERUM 3.5 mEq/L (3.5-5.1)
[2017-03-02 06:25] LABS: INR 2.32 (0.5-1.4); PROTHROMBIN TIME (TEST) 25.3 SECONDS (9.5-11.5)
[2017-03-02 07:07] LABS: ALB/GLOB RATIO 0.7 (1.0-1.8); BILIRUBIN,DIRECT 1.98 mg/dL (0.0-0.2); BILIRUBIN,TOTAL 3.2 mg/dL (0.3-1.0)
[2017-03-02 07:42] LABS: WHITE BLOOD COUNT 20.7 Th/cmm (4.8-10.8)
[2017-03-02 07:43] LABS: HEMATOCRIT 23.5 % (35.0-45.0); PLATELET COUNT 49 Th/cmm (150-400)
[2017-03-02 08:22] LABS: BAND NEUTROPHILE 1 % (0-10); METAMYELOCYTE 1 % (0-0); NEUTROPHILS 78 % (40-80); TOTAL CELLS COUNTED 100
[2017-03-02 08:23] LABS: ANISOCYTOSIS 1+; PLATELET ESTIMATE DECREASED PLATELETS (NORMAL); PLATELET MORPHOLOGY NORMAL (NORMAL)
[2017-03-02] MEDS ORDERED: Bupivacaine 0.25% 10 mL Vial ONE (08:24)
[2017-03-02] MEDS ORDERED: Meperidine 25 mg/mL 1mL Syr IVP PRN (09:02)
[2017-03-02] MEDS ORDERED: Lactated Ringer 1,000 ML IV SCH (09:15)
--- NOTE | 2017-03-02 09:17 | Diagnostic Imaging Report ---
Portable chest x-ray HISTORY: Pneumonia Compared with prior exam of March 01, 2017, the heart is enlarged. There is opacification of the left lower hemithorax. Findings may be associated with a pleural effusion. Underlying pneumonia and/or atelectasis cannot be excluded. There does appear to be degree of pulmonary vascular redistribution consistent with a degree of congestive heart failure. Minimal right pleural effusion noted. Hazy interstitial markings suggest mild edema. IMPRESSION: 1. Persistent cardiomegaly with opacification the left lower hemithorax. The findings may be associated with pleural fluid. Underlying pneumonia and/or atelectasis cannot be excluded. 2. Persistent cardiomegaly along with changes consistent with a degree of congestive heart failure and a probable edema. Clinical correlation needed.
--- NOTE | 2017-03-02 09:22 | Consultation ---
DATE OF CONSULTATION: 02/28/2017 REFERRING PHYSICIAN: Dr. Velazquez. REASON FOR CONSULTATION: Deep wounds of the abdomen. Thank you for referring this patient to me. HISTORY OF PRESENT ILLNESS: This is a 71-year-old female admitted for hypertension and multiple abdominal wounds. This has been present apparently for some time. PAST MEDICAL HISTORY: Includes hypertension, diabetes mellitus, end-stage renal disease on hemodialysis treatment 3 times a week, and abdominal wounds present for a long time, raising the possibility of calciphylaxis. LABORATORY STUDIES: On this showed WBC of 23,800, hemoglobin of 9.1, the platelet count is low at 70,000. PT also high at 46.3 seconds, the BUN is 28 with creatinine of 3.8. Liver function tests are elevated with a bilirubin of 3.2, AST of 1.98. Albumin is low at 2.2. The is at bedside. The patient is extremely obese and multiple wounds are present particularly on the left side of the abdomen, low in the pelvis with extensive with necrotic tissues extending for about a foot and then on the midline, lower abdomen again another extensive wound, and also on the right lower quadrant. PLAN: We will debride, taking only necrotic tissues to prevent bleeding and application of wound VAC will be done. The question of calciphylaxis will be addressed by amusement ride operator, who is on the case. JOB# [id number] GERARD
--- NOTE | 2017-03-02 10:05 | Operative Report ---
DATE OF SURGERY: 03/02/2017 PREOPERATIVE DIAGNOSES: 1. Abdominal wounds, lower abdomen. 2. Diabetes mellitus. 3. End-stage renal disease. 4. Morbid obesity. POSTOPERATIVE DIAGNOSES: 1. Abdominal wounds, lower abdomen. 2. Diabetes mellitus. 3. End-stage renal disease. 4. Morbid obesity. OPERATION DONE: 1. Excisional debridement of abdominal wounds stage 3: 1. Left lower abdomen measuring 30 cm x 10 cm. 2. Mid abdomen, lower pelvic area size 10 x 8 cm, stage 3. 3. Right lower abdomen measuring 20 x 10 cm, stage 3. 2. Application of wound VAC. SURGEON: Casandra Harris M.D. ANESTHESIA: General. ANESTHESIOLOGIST: Ines Rob M.D. DESCRIPTION OF PROCEDURE: The patient was given IV sedation. In view of the patient's low platelet count and high prothrombin time, a cautery was used for excisional debridement. This was done in the left lower abdomen, the midline abdomen, and the right lower abdomen. Following satisfactory hemostasis, the wounds were packed with silver sponge and two wound VACs were applied. The patient tolerated the procedure well. JOB# [id number]
[2017-03-02] MEDS: Meropenem 500 MG in Sodium Chloride 0.9% 100 ML IV SCH (11:16)
--- NOTE | 2017-03-02 12:01 | General Progress Note ---
Subjective - Review of Systems Service Date: 03/02/17 Subjective: stuporous, comfortable Objective - Results Result Diagrams: 03/02/17 05:36 03/02/17 05:36 Recent Labs: Laboratory Last Values WBC 20.7 Th/cmm (4.8-10.8) H* 03/02/17 05:36 RBC 2.61 Mil/cmm (3.80-5.20) L 03/02/17 05:36 Hgb 8.0 gm/dL (11.7-16.1) L D 03/02/17 05:36 Hct 23.5 % (35.0-45.0) L* D 03/02/17 05:36 MCV 90.1 fl (81-100) 03/02/17 05:36 MCH 30.8 pg (27.0-31.0) 03/02/17 05:36 MCHC Differential 34.2 pg (28.0-36.0) 03/02/17 05:36 RDW 17.5 % (11.5-20.0) 03/02/17 05:36 Plt Count 49 Th/cmm (150-400) L D 03/02/17 05:36 MPV 7.9 fl 03/02/17 05:36 Neutrophils % 79.9 % (40.0-80.0) 02/27/17 19:30 Band Neutrophils % 1 % (0-10) 03/02/17 05:36 Lymphocytes % 15.4 % (20.0-50.0) L 02/27/17 19:30 Monocytes % 3.8 % (2.0-10.0) 02/27/17 19:30 Eosinophils % 0.8 % (0.0-5.0) 02/27/17 19:30 Basophils % 0.1 % (0.0-2.0) 02/27/17 19:30 Neutrophils (Manual) 78 % (40-80) 03/02/17 05:36 Lymphocytes 14 % (20-50) L 03/02/17 05:36 Monocytes 6 % (2-10) 03/02/17 05:36 Eosinophils 2 % (0-5) 03/01/17 12:26 Basophils 1 % (0-3) 03/01/17 12:26 Metamyelocytes 1 % (0-0) H 03/02/17 05:36 Platelet Estimate DECREASED PLATELETS (NORMAL) 03/02/17 05:36 Platelet Morphology NORMAL (NORMAL) 03/02/17 05:36 Polychromasia 1+ 03/01/17 04:30 Anisocytosis 1+ 03/02/17 05:36 RBC Morph Micro Appear ABNORMAL (NORMAL) 03/02/17 05:36 PT 25.3 SECONDS (9.5-11.5) H 03/02/17 05:36 INR 2.32 (0.5-1.4) H 03/02/17 05:36 PTT (Actin FS) 90.5 SECONDS (26.0-38.0) H* 03/02/17 05:36 Sodium 130 mEq/L (136-145) L 03/02/17 05:36 Potassium 3.5 mEq/L (3.5-5.1) 03/02/17 05:36 Chloride 101 mEq/L (98-107) 03/02/17 05:36 Carbon Dioxide 22.2 mEq/L (21.0-31.0) 03/02/17 05:36 Anion Gap 10.3 (7.0-16.0) 03/02/17 05:36 BUN 30 mg/dL (7-25) H 03/02/17 05:36 Creatinine 4.0 mg/dL (0.6-1.2) H 03/02/17 05:36 Est GFR ( Amer) 14.3 ml/min (>90) 03/02/17 05:36 Est GFR (Non-Af Amer) 11.8 ml/min 03/02/17 05:36 BUN/Creatinine Ratio 7.5 03/02/17 05:36 Glucose 209 mg/dL (70-105) H 03/02/17 05:36 POC Glucose 96 MG/DL (70 - 105) 02/28/17 12:24 Hemoglobin A1c % 4.6 % (4.0-6.0) 02/27/17 19:30 Whole Bld Lactic Acid 1.39 mmol/L (0.60-1.99) 03/01/17 15:56 Calcium 8.2 mg/dL (8.6-10.3) L 03/02/17 05:36 Phosphorus 3.7 mg/dL (2.5-5.0) 03/02/17 05:36 Magnesium 1.8 mg/dL (1.9-2.7) L 03/02/17 05:36 Total Bilirubin 3.2 mg/dL (0.3-1.0) H 03/02/17 05:36 Direct Bilirubin 1.98 mg/dL (0.0-0.2) H 03/02/17 05:36 AST 25 U/L (13-39) 03/02/17 05:36 ALT 4 U/L (7-52) L 03/02/17 05:36 Alkaline Phosphatase 145 U/L (34-104) H 03/02/17 05:36 Total Protein 5.2 gm/dL (6.0-8.3) L 03/02/17 05:36 Albumin 2.2 gm/dL (3.7-5.3) L 03/02/17 05:36 Globulin 3.0 gm/dL 03/02/17 05:36 Albumin/Globulin Ratio 0.7 (1.0-1.8) L 03/02/17 05:36 Gentamicin Peak 8.8 ug/ml (4.0-8.0) 03/01/17 10:00 Gentamicin Trough ug/ml (0.2-2.0) 03/01/17 08:30 Serum Ketones NEGATIVE (NEGATIVE) 02/27/17 19:30 - Physical Exam Vitals and I&O: Vital Signs Temp 98 F 03/02/17 04:00 Pulse 103 03/02/17 07:00 Resp 13 03/02/17 07:00 BP 94/63 03/02/17 07:00 Pulse Ox 99 03/02/17 07:00 Intake & Output 03/01/17 03/02/17 03/02/17 18:59 06:59 18:59 Intake Total 269.663 874.833 Output Total 0 Balance 269.663 874.833 Weight (lbs) 126.099 kg 126.099 kg Intake: Intake, IV Amount 269.663 874.833 Diltiazem 125 mg In 222.833 Dextrose 5% 100 ml @ 10 MG/HR 10 mls/hr IV TITR [facility] Rx#:[id number] Meropenem 500 mg In 100 100 Sodium Chloride 0.9% 100 ml @ 100 mls/hr IV Q12H [facility] Rx#:[id number] Norepinephrine 4 mg In 69.663 Dextrose 5% 250 ml @ Per Protocol IV TITR PRN Rx#: [id number] Norepinephrine 8 mg In 250.000 Dextrose 5% 250 ml @ 0 mls/hr IV PRN [facility] Rx#: [id number] Phytonadione 10 mg In 101 Dextrose 5% 100 ml @ 100 mls/hr IV Q2H [facility] Rx#: [id number] Tigecycline 50 mg In 100 100 Sodium Chloride 0.9% 100 ml @ 100 mls/hr IV Q12H [facility] Rx#:[id number] Output: Urine 0 Other: # Bowel Movements 0 Stool Characteristics Soft Liquid Active Medications: Current Medications Albuterol Sulfate (Albuterol 2.5mg/3ml Neb Ud) 2.5 mg HHN Q2H PRN PRN Reason: Shortness of Breath Stop: 04/29/17 03:59 Ascorbic Acid (Vitamin C) 500 mg PO DAILY [facility] Stop: 04/29/17 08:59 Last Admin: 03/01/17 08:51 Dose: Not Given Cholecalciferol (Vitamin D3) 2,000 iu PO DAILY [facility] Stop: 04/29/17 08:59 Last Admin: 03/01/17 08:51 Dose: Not Given Diphenhydramine HCl (Benadryl) 25 mg PO Q6H PRN PRN Reason: Itching Stop: 04/29/17 03:39 Escitalopram Oxalate (Lexapro) 10 mg PO DAILY [facility] PRN Reason: Protocol Stop: 04/29/17 08:59 Last Admin: 03/01/17 08:52 Dose: Not Given Famotidine (Pepcid) 20 mg IVP DAILY [facility] Stop: 05/01/17 08:59 Last Admin: 03/02/17 11:17 Dose: 20 mg Fludrocortisone Acetate (Florinef) 0.1 mg PO BID [facility] Stop: 04/29/17 08:59 Last Admin: 03/01/17 08:52 Dose: Not Given Diltiazem HCl 125 mg/ Dextrose 125 mls @ 10 mls/hr IV TITR [facility]; 10 MG/HR PRN Reason: Protocol Stop: 04/29/17 04:14 Last Titration: 03/02/17 06:00 Dose: 5 mg/hr, 5 mls/hr Tigecycline 50 mg/ Sodium (Chloride) 100 mls @ 100 mls/hr IV Q12H [facility] Stop: 04/30/17 11:29 Last Admin: 03/02/17 11:17 Dose: 100 mls/hr Meropenem 500 mg/ Sodium (Chloride) 100 mls @ 100 mls/hr IV Q12H [facility] Stop: 04/30/17 11:44 Last Admin: 03/02/17 11:16 Dose: 100 mls/hr Dextrose/Sodium Chloride (D5-0.45ns) 1,000 mls @ 40 mls/hr IV .Q24H [facility] Stop: 04/29/17 13:08 Last Admin: 03/01/17 22:53 Dose: 40 mls/hr Norepinephrine Bitartrate 8 mg (/ Dextrose) 250 mls @ 0 mls/hr IV PRN [facility] Stop: 04/30/17 16:29 Last Admin: 03/02/17 03:59 Dose: 26.25 mls/hr Lactated Ringer's (Lactated Ringer) 1,000 mls @ 0 mls/hr IV .Q0M [facility] PRN Reason: TKO Stop: 03/03/17 09:14 Lactobacillus Rhamnosus (Culturelle) 1 each PO DAILY [facility] Stop: 05/01/17 08:59 Meperidine HCl (Demerol) 12.5 mg IVP UD PRN PRN Reason: POST-OP PAIN Stop: 03/03/17 09:01 Metoprolol Tartrate (Lopressor) 50 mg PO Q12HR [facility] Stop: 04/29/17 08:59 Last Admin: 03/01/17 20:30 Dose: Not Given Miconazole Nitrate (Miconazole 2% Cream) 1 appl VG BID [facility] Stop: 03/07/17 08:59 Last Admin: 03/01/17 08:53 Dose: 1 appl Miscellaneous (Clinical Monitoring) 1 ea MC DAILY PRN PRN Reason: RENAL Stop: 04/29/17 10:50 Miscellaneous (Vte Chemical Prophylaxis Screen/ Admission) 1 ea MC PRN PRN PRN Reason: PROTOCOL Stop: 04/29/17 15:40 Miscellaneous (Probiotic Screen) 1 ea PRN PRN PRN Reason: PROTOCOL Stop: 04/30/17 10:56 Miscellaneous (Tpn Per Pharmacy) 1 ea MC PRN PRN PRN Reason: PROTOCOL Stop: 04/30/17 18:13 Morphine Sulfate (Morphine) 2 mg IVP Q4HR PRN PRN Reason: Pain (Moderate) Stop: 04/28/17 23:23 Last Admin: 03/01/17 03:00 Dose: 2 mg Ondansetron HCl (Zofran) 4 mg IV PRN PRN PRN Reason: Nausea / Vomiting Stop: 03/03/17 09:01 Sevelamer HCl (Renagel) 800 mg PO TIDWM [facility] Stop: 04/30/17 07:59 Last Admin: 03/01/17 08:50 Dose: Not Given Zinc Sulfate (Zinc Sulfate) 220 mg PO DAILY [facility] Stop: 04/29/17 08:59 Last Admin: 03/01/17 08:54 Dose: Not Given General: No acute distress HEENT: Atraumatic, Mucous membr. moist/pink Neck: Supple, +2 carotid pulse wo bruit Cardiovascular: Regular rate, Normal S1, Normal S2 Lungs: Other (few rhonchi) Abdomen: Obese, Other (multiple abd wounds) Extremities: Other (ecchymosis, hematomas, petecchiae), no Edema Neurological: Other (stuporous) Skin: Rash, Other Psych/Mental Status: Mood NL Assessment/Plan - Assessment Assessment: ESRD on HD Acute on chronic nonhealing abdominal wounds status post debridement Severe malnutrition Obesity hypoventilation syndrome Morbid obesity Type 2 diabetes mellitus Essential hypertension Anemia of chronic kidney disease Chronic atrial fibrillation Coronary artery disease 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 - Plan Plan: Lab - Result Diagrams 03/01/17 04:30 03/01/17 04:30 Current Medications Albuterol Sulfate (Albuterol 2.5mg/3ml Neb Ud) 2.5 mg HHN Q2H PRN PRN Reason: Shortness of Breath Stop: 04/29/17 03:59 Ascorbic Acid (Vitamin C) 500 mg PO DAILY [facility] Stop: 04/29/17 08:59 Last Admin: 03/01/17 08:51 Dose: Not Given Cholecalciferol (Vitamin D3) 2,000 iu PO DAILY [facility] Stop: 04/29/17 08:59 Last Admin: 03/01/17 08:51 Dose: Not Given Diphenhydramine HCl (Benadryl) 25 mg PO Q6H PRN PRN Reason: Itching Stop: 04/29/17 03:39 Escitalopram Oxalate (Lexapro) 10 mg PO DAILY [facility] PRN Reason: Protocol Stop: 04/29/17 08:59 Last Admin: 03/01/17 08:52 Dose: Not Given Famotidine (Pepcid) 20 mg PO BID [facility] Stop: 04/29/17 08:59 Last Admin: 03/01/17 08:52 Dose: Not Given Fludrocortisone Acetate (Florinef) 0.1 mg PO BID [facility] Stop: 04/29/17 08:59 Last Admin: 03/01/17 08:52 Dose: Not Given Norepinephrine Bitartrate 4 mg (/ Dextrose) 254 mls @ 0 mls/hr IV TITR PRN; Protocol; Per Protocol PRN Reason: BP MAINTENANCE (PER PROTOCOL) Stop: 04/28/17 23:29 Last Admin: 03/01/17 12:31 Dose: 1.5 mcg/min, 5.71 mls/hr Clindamycin Phosphate (Cleocin Pb) 600 mg in 50 mls @ 100 mls/hr IV Q8HR [facility] Stop: 04/29/17 04:59 Last Admin: 03/01/17 06:07 Dose: 100 mls/hr Diltiazem HCl 125 mg/ Dextrose 125 mls @ 10 mls/hr IV TITR [facility]; 10 MG/HR PRN Reason: Protocol Stop: 04/29/17 04:14 Last Admin: 03/01/17 06:47 Dose: 10 mg/hr, 10 mls/hr Gentamicin Sulfate 160 mg/ (Sodium Chloride) 104 mls @ 200 mls/hr IV Q48H [facility] Stop: 04/30/17 08:59 Last Admin: 03/01/17 09:00 Dose: 200 mls/hr Dextrose/Sodium Chloride (D5-0.45ns) 1,000 mls @ 75 mls/hr IV .[id number] [facility] Stop: 04/29/17 13:08 Last Admin: 03/01/17 05:37 Dose: 75 mls/hr Levofloxacin (Levaquin Pb) 250 mg in 50 mls @ 50 mls/hr IV Q48HR [facility] Stop: 04/29/17 16:59 Last Infusion: 02/28/17 18:15 Dose: Infused Lactobacillus Rhamnosus (Culturelle) 1 each PO DAILY [facility] Stop: 04/29/17 08:59 Last Admin: 03/01/17 08:53 Dose: Not Given Lactobacillus Rhamnosus (Culturelle) 1 each PO DAILY [facility] Stop: 05/01/17 08:59 Metoprolol Tartrate (Lopressor) 50 mg PO Q12HR [facility] Stop: 04/29/17 08:59 Last Admin: 03/01/17 08:53 Dose: Not Given Miconazole Nitrate (Miconazole 2% Cream) 1 appl VG BID [facility] Stop: 03/07/17 08:59 Last Admin: 03/01/17 08:53 Dose: 1 appl Miscellaneous (Clinical Monitoring) 1 ea DAILY PRN PRN Reason: RENAL Stop: 04/29/17 10:50 Miscellaneous (Vte Chemical Prophylaxis Screen/ Admission) 1 ea PRN PRN PRN Reason: PROTOCOL Stop: 04/29/17 15:40 Miscellaneous (Probiotic Screen) 1 ea PRN PRN PRN Reason: PROTOCOL Stop: 04/30/17 10:56 Morphine Sulfate (Morphine) 2 mg IVP Q4HR PRN PRN Reason: Pain (Moderate) Stop: 04/28/17 23:23 Last Admin: 03/01/17 03:00 Dose: 2 mg Phytonadione (Mephyton) 10 mg PO TID [facility] Stop: 03/03/17 13:59 Last Admin: 03/01/17 08:54 Dose: Not Given Sevelamer HCl (Renagel) 800 mg PO TIDWM [facility] Stop: 04/30/17 07:59 Last Admin: 03/01/17 08:50 Dose: Not Given Zinc Sulfate (Zinc Sulfate) 220 mg PO DAILY [facility] Stop: 04/29/17 08:59 Last Admin: 03/01/17 08:54 Dose: Not Given schedule for hd in am Blood pressure supported by levothyroid at 10 mcg/m Will decrease IV fluids due to possible fluid overload just had sharp debridement discussed w/ @ bedside Nutritional Asmnt/Malnutr-PDOC - Dietary Evaluation Malnutrition Findings (Please click <Entered> for more info): Nutritional Asmnt/Malnutrition Start: 02/28/17 14: 25 Text: Status: Complete Freq: Document 02/28/17 14:32 GSUN (Rec: 02/28/17 14:52 [id number]) Nutritional Asmnt/Malnutrition Patient General Information Nutritional Screening High Risk Screening Diagnosis Infectured multiple abdominal wound, sepsis, hypotension Pertinent Medical Hx/Surgical Hx DM, end stage renal failure, obesity, multiple abdominal wound, anemia Subjective Information 71 [address] consult for wounds/calciphylaxis. Pt was lethargic during visit, spoke to at bedside. Briefly explained renal diet, agreeable to plan, not suitble for extensive edu at this time. Pt appeared obese. Pt reported UBW 250lb measured 1 month ago, pt is unsure of dry weight at dialysis center. Pt reported has gradually lost weight 80lb over the past year due to poor appetite and hospitalizations. RD recommended oral supplements, pt denied, stating she has tried and threw up. Current Diet Order/ Nutrition Support Renal, 1800kcal Pertinent Medications Vitamin C, Vitamin D3, D5-0. 45ns, Pepcid, Novolog, Culturelle, Morphine, Zinc Sulfate Pertinent Labs 02/28: BUN 38H, creatinine 5H, phosphorus 5.4H Nutritional Hx/Data Height 1.63 m Height (Calculated Centimeters) 162.6 Current Weight (lbs) 113.398 kg Weight (Calculated Kilograms) 113.4 Weight (Calculated Grams) 336775.1 [place] Body Weight 120 Recent Weight Change Yes Weight Status Morbidly Obese GI Symptoms Skin Integrity/Comment: Bilateral lower extremities pitting 3+. Abdominal wounds/ calciphylaxis Estimated Nutritional Goals BEE in Kcals: Adj wt of IBW Calories/Kcals/Kg AdjBW 152.5lb/69.3kg (adjsuted to UBW) Kcals Calculated 2079-2426kcal (30-35kcal/kg) Protein: Adj wt of IBW Protein Calculated 90-104g (1.2-1.5/gkg) Fluid: ml 2079-2426ml (1ml/kcal) Nutritional Problem 3. Problem Problem Malnutrition related to Etiology unknown etiology, energy imbalance aeb Signs/Symptoms: BMI >40 2. Problem Problem Increased kcal and prot needs related to Etiology hypermetabolic state aeb Signs/Symptoms: on HD, sepsis 1. Problem Problem Impaired nutrient utilization related to Etiology end stage renal failure aeb Signs/Symptoms: on HD, BUN 38H, creatinine 5H, phosphorus 5.4H Malnutrition Related to Morbid Obesity Malnutrition related to morbid obesity BMI> or equal to 40 Query Text:(Any 1 Criteria met) Malnutrition related to morbid obesity Yes Intervention/Recommendation Comments 1. Recommend renal diet. Briefly explained renal diet, pt is agreeable to plan. Encourage PO intake. 2. Recommend removing " 1800kcal" restriction as pt is in hypermetabolic state ( sepsis, HD) and obese, requiring more than 1800kcal, weight loss not favorable at this time. 3. Pt reported poor appetite many months, RD recommend oral supplements, pt declined. Expected Outcomes/Goals Expected Outcomes/Goals 1. PO intake to meet at least 75% of estimated nutritional needs.
[2017-03-02] MEDS ORDERED: Mag Sulfate 2gm/50mL Premix 2 GM/50 ML BAG IV ONE (12:05)
--- NOTE | 2017-03-02 16:03 | Infectious Disease Prog Note ---
Infectious Disease Subjective - Review of Systems Service Date: 03/02/17 Subjective: mentation improved and put on sedation for debridement.. No fever. Debridement was performed today. Infectious Disease Objective - Results Result Diagrams: 03/02/17 05:36 03/02/17 05:36 Recent Labs: Laboratory Last Values WBC 20.7 Th/cmm (4.8-10.8) H* 03/02/17 05:36 RBC 2.61 Mil/cmm (3.80-5.20) L 03/02/17 05:36 Hgb 8.0 gm/dL (11.7-16.1) L D 03/02/17 05:36 Hct 23.5 % (35.0-45.0) L* D 03/02/17 05:36 MCV 90.1 fl (81-100) 03/02/17 05:36 MCH 30.8 pg (27.0-31.0) 03/02/17 05:36 MCHC Differential 34.2 pg (28.0-36.0) 03/02/17 05:36 RDW 17.5 % (11.5-20.0) 03/02/17 05:36 Plt Count 49 Th/cmm (150-400) L D 03/02/17 05:36 MPV 7.9 fl 03/02/17 05:36 Neutrophils % 79.9 % (40.0-80.0) 02/27/17 19:30 Band Neutrophils % 1 % (0-10) 03/02/17 05:36 Lymphocytes % 15.4 % (20.0-50.0) L 02/27/17 19:30 Monocytes % 3.8 % (2.0-10.0) 02/27/17 19:30 Eosinophils % 0.8 % (0.0-5.0) 02/27/17 19:30 Basophils % 0.1 % (0.0-2.0) 02/27/17 19:30 Neutrophils (Manual) 78 % (40-80) 03/02/17 05:36 Lymphocytes 14 % (20-50) L 03/02/17 05:36 Monocytes 6 % (2-10) 03/02/17 05:36 Eosinophils 2 % (0-5) 03/01/17 12:26 Basophils 1 % (0-3) 03/01/17 12:26 Metamyelocytes 1 % (0-0) H 03/02/17 05:36 Platelet Estimate DECREASED PLATELETS (NORMAL) 03/02/17 05:36 Platelet Morphology NORMAL (NORMAL) 03/02/17 05:36 Polychromasia 1+ 03/01/17 04:30 Anisocytosis 1+ 03/02/17 05:36 RBC Morph Micro Appear ABNORMAL (NORMAL) 03/02/17 05:36 PT 25.3 SECONDS (9.5-11.5) H 03/02/17 05:36 INR 2.32 (0.5-1.4) H 03/02/17 05:36 PTT (Actin FS) 90.5 SECONDS (26.0-38.0) H* 03/02/17 05:36 Sodium 130 mEq/L (136-145) L 03/02/17 05:36 Potassium 3.5 mEq/L (3.5-5.1) 03/02/17 05:36 Chloride 101 mEq/L (98-107) 03/02/17 05:36 Carbon Dioxide 22.2 mEq/L (21.0-31.0) 03/02/17 05:36 Anion Gap 10.3 (7.0-16.0) 03/02/17 05:36 BUN 30 mg/dL (7-25) H 03/02/17 05:36 Creatinine 4.0 mg/dL (0.6-1.2) H 03/02/17 05:36 Est GFR ( Amer) 14.3 ml/min (>90) 03/02/17 05:36 Est GFR (Non-Af Amer) 11.8 ml/min 03/02/17 05:36 BUN/Creatinine Ratio 7.5 03/02/17 05:36 Glucose 209 mg/dL (70-105) H 03/02/17 05:36 POC Glucose 96 MG/DL (70 - 105) 02/28/17 12:24 Hemoglobin A1c % 4.6 % (4.0-6.0) 02/27/17 19:30 Whole Bld Lactic Acid 1.39 mmol/L (0.60-1.99) 03/01/17 15:56 Calcium 8.2 mg/dL (8.6-10.3) L 03/02/17 05:36 Phosphorus 3.7 mg/dL (2.5-5.0) 03/02/17 05:36 Magnesium 1.8 mg/dL (1.9-2.7) L 03/02/17 05:36 Total Bilirubin 3.2 mg/dL (0.3-1.0) H 03/02/17 05:36 Direct Bilirubin 1.98 mg/dL (0.0-0.2) H 03/02/17 05:36 AST 25 U/L (13-39) 03/02/17 05:36 ALT 4 U/L (7-52) L 03/02/17 05:36 Alkaline Phosphatase 145 U/L (34-104) H 03/02/17 05:36 Total Protein 5.2 gm/dL (6.0-8.3) L 03/02/17 05:36 Albumin 2.2 gm/dL (3.7-5.3) L 03/02/17 05:36 Globulin 3.0 gm/dL 03/02/17 05:36 Albumin/Globulin Ratio 0.7 (1.0-1.8) L 03/02/17 05:36 Gentamicin Peak 8.8 ug/ml (4.0-8.0) 03/01/17 10:00 Gentamicin Trough ug/ml (0.2-2.0) 03/01/17 08:30 Serum Ketones NEGATIVE (NEGATIVE) 02/27/17 19:30 - Physical Exam Vitals and I&O: Vital Signs Temp 98 F 03/02/17 04:00 Pulse 103 03/02/17 07:00 Resp 13 03/02/17 07:00 BP 94/63 03/02/17 07:00 Pulse Ox 98 03/02/17 08:00 Intake & Output 03/01/17 03/02/17 03/02/17 18:59 06:59 18:59 Intake Total 269.663 874.833 372.105 Output Total 0 Balance 269.663 874.833 372.105 Weight (lbs) 126.099 kg 126.099 kg Intake: Intake, IV Amount 269.663 874.833 372.105 Diltiazem 125 mg In 222.833 16.667 Dextrose 5% 100 ml @ 10 MG/HR 10 mls/hr IV TITR [facility] Rx#:[id number] Meropenem 500 mg In 100 100 Sodium Chloride 0.9% 100 ml @ 100 mls/hr IV Q12H [facility] Rx#:[id number] Norepinephrine 4 mg In 69.663 Dextrose 5% 250 ml @ Per Protocol IV TITR PRN Rx#: [id number] Norepinephrine 8 mg In 250.0 Dextrose 5% 250 ml @ 0 MCG/MIN IV TITR PRN Rx#: [id number] Norepinephrine 8 mg In 250.000 105.438 Dextrose 5% 250 ml @ 0 mls/hr IV PRN [facility] Rx#: [id number] Phytonadione 10 mg In 101 Dextrose 5% 100 ml @ 100 mls/hr IV Q2H [facility] Rx#: [id number] Tigecycline 50 mg In 100 100 Sodium Chloride 0.9% 100 ml @ 100 mls/hr IV Q12H [facility] Rx#:[id number] Output: Urine 0 Other: # Bowel Movements 0 Stool Characteristics Soft Soft Liquid Liquid Active Medications: Current Medications Albuterol Sulfate (Albuterol 2.5mg/3ml Neb Ud) 2.5 mg HHN Q2H PRN PRN Reason: Shortness of Breath Stop: 04/29/17 03:59 Ascorbic Acid (Vitamin C) 500 mg PO DAILY [facility] Stop: 04/29/17 08:59 Last Admin: 03/01/17 08:51 Dose: Not Given Cholecalciferol (Vitamin D3) 2,000 iu PO DAILY [facility] Stop: 04/29/17 08:59 Last Admin: 03/01/17 08:51 Dose: Not Given Diphenhydramine HCl (Benadryl) 25 mg PO Q6H PRN PRN Reason: Itching Stop: 04/29/17 03:39 Escitalopram Oxalate (Lexapro) 10 mg PO DAILY [facility] PRN Reason: Protocol Stop: 04/29/17 08:59 Last Admin: 03/01/17 08:52 Dose: Not Given Famotidine (Pepcid) 20 mg IVP DAILY [facility] Stop: 05/01/17 08:59 Last Admin: 03/02/17 11:17 Dose: 20 mg Fludrocortisone Acetate (Florinef) 0.1 mg PO BID [facility] Stop: 04/29/17 08:59 Last Admin: 03/01/17 08:52 Dose: Not Given Diltiazem HCl 125 mg/ Dextrose 125 mls @ 10 mls/hr IV TITR [facility]; 10 MG/HR PRN Reason: Protocol Stop: 04/29/17 04:14 Last Titration: 03/02/17 09:20 Dose: 0 mg/hr, 0 mls/hr Tigecycline 50 mg/ Sodium (Chloride) 100 mls @ 100 mls/hr IV Q12H [facility] Stop: 04/30/17 11:29 Last Admin: 03/02/17 11:17 Dose: 100 mls/hr Meropenem 500 mg/ Sodium (Chloride) 100 mls @ 100 mls/hr IV Q12H [facility] Stop: 04/30/17 11:44 Last Admin: 03/02/17 11:16 Dose: 100 mls/hr Lactated Ringer's (Lactated Ringer) 1,000 mls @ 0 mls/hr IV .Q0M [facility] PRN Reason: TKO Stop: 03/03/17 09:14 Albumin Human (Albuminar 25%) 25 gm in 100 mls @ 50 mls/hr IV X1 ONE Stop: 03/03/17 14:10 Albumin Human (Albuminar 25%) 25 gm in 100 mls @ 50 mls/hr IV X1 ONE Stop: 03/03/17 14:11 Amino Acids/Electrolytes (Procalamine) 1,000 mls @ 60 mls/hr IV .[id number] [facility] Stop: 03/03/17 16:00 Norepinephrine Bitartrate 8 mg (/ Dextrose) 250 mls @ 0 mls/hr IV TITR PRN; Protocol; 0 MCG/MIN PRN Reason: BP MAINTENANCE (PER PROTOCOL) Stop: 05/01/17 14:16 Last Admin: 03/02/17 15:22 Dose: 8 mcg/min, 15 mls/hr Lactobacillus Rhamnosus (Culturelle) 1 each PO DAILY [facility] Stop: 05/01/17 08:59 Meperidine HCl (Demerol) 12.5 mg IVP UD PRN PRN Reason: POST-OP PAIN Stop: 03/03/17 09:01 Metoprolol Tartrate (Lopressor) 50 mg PO Q12HR [facility] Stop: 04/29/17 08:59 Last Admin: 03/01/17 20:30 Dose: Not Given Miconazole Nitrate (Miconazole 2% Cream) 1 appl VG BID [facility] Stop: 03/07/17 08:59 Last Admin: 03/01/17 08:53 Dose: 1 appl Miscellaneous (Clinical Monitoring) 1 ea MC DAILY PRN PRN Reason: RENAL Stop: 04/29/17 10:50 Miscellaneous (Vte Chemical Prophylaxis Screen/ Admission) 1 ea MC PRN PRN PRN Reason: PROTOCOL Stop: 04/29/17 15:40 Miscellaneous (Probiotic Screen) 1 ea MC PRN PRN PRN Reason: PROTOCOL Stop: 04/30/17 10:56 Miscellaneous (Tpn Per Pharmacy) 1 ea MC PRN PRN PRN Reason: PROTOCOL Stop: 04/30/17 18:13 Morphine Sulfate (Morphine) 2 mg IVP Q4HR PRN PRN Reason: Pain (Moderate) Stop: 04/28/17 23:23 Last Admin: 03/01/17 03:00 Dose: 2 mg Ondansetron HCl (Zofran) 4 mg IV PRN PRN PRN Reason: Nausea / Vomiting Stop: 03/03/17 09:01 Sevelamer HCl (Renagel) 800 mg PO TIDWM [facility] Stop: 04/30/17 07:59 Last Admin: 03/01/17 08:50 Dose: Not Given Zinc Sulfate (Zinc Sulfate) 220 mg PO DAILY [facility] Stop: 04/29/17 08:59 Last Admin: 03/01/17 08:54 Dose: Not Given General: no acute distress, other (obese) HEENT: atraumatic, normocephalic, PERRLA, EOMI Neck: supple, no thyromegaly Cardiovascular: S1S2, regular Lungs: clear to auscultation bilaterally, clear to percussion Abdomen: soft, other (lower abdominal wound radiating to the back.), no tender, no distended, no hepatomegaly Extremities: no cyanosis, no clubbing, no edema Neurological: other (sedated.) Skin: intact Infectious Disease Assmt/Plan - Assessment Assessment: 1. Leukocytosis , septic shock. 2. Infected lower abdominal wounds, worse on the left. Growing CRE. 3. Calciphylaxis of lower abdomen. 4. Obesity. 5. Dm2 6. CKD 5 on HD. 7. HTN. 8. Anemia of CD. 9. s/p debridement. - Plan Plan: Will Continue tygacil and meropenem IV. wound care. Sepsis w/u, including wound cultures. Nutritional Asmnt/Malnutr-PDOC - Dietary Evaluation Malnutrition Findings (Please click <Entered> for more info): Nutritional Asmnt/Malnutrition Start: 02/28/17 14: 25 Text: Status: Complete Freq: Document 02/28/17 14:32 GSUN (Rec: 02/28/17 14:52 [email or web address] [email or web address]) Nutritional Asmnt/Malnutrition Patient General Information Nutritional Screening High Risk Screening Diagnosis Infectured multiple abdominal wound, sepsis, hypotension Pertinent Medical Hx/Surgical Hx DM, end stage renal failure, obesity, multiple abdominal wound, anemia Subjective Information 71 [address] consult for wounds/calciphylaxis. Pt was lethargic during visit, spoke to at bedside. Briefly explained renal diet, agreeable to plan, not suitble for extensive edu at this time. Pt appeared obese. Pt reported UBW 250lb measured 1 month ago, pt is unsure of dry weight at dialysis center. Pt reported has gradually lost weight 80lb over the past year due to poor appetite and hospitalizations. RD recommended oral supplements, pt denied, stating she has tried and threw up. Current Diet Order/ Nutrition Support Renal, 1800kcal Pertinent Medications Vitamin C, Vitamin D3, D5-0. 45ns, Pepcid, Novolog, Culturelle, Morphine, Zinc Sulfate Pertinent Labs /: BUN 38H, creatinine 5H, phosphorus 5.4H Nutritional Hx/Data Height 1.63 m Height (Calculated Centimeters) 162.6 Current Weight (lbs) 113.398 kg Weight (Calculated Kilograms) 113.4 Weight (Calculated Grams) 487066.1 [place] Body Weight 120 Recent Weight Change Yes Weight Status Morbidly Obese GI Symptoms Skin Integrity/Comment: Bilateral lower extremities pitting 3+. Abdominal wounds/ calciphylaxis Estimated Nutritional Goals BEE in Kcals: Adj wt of IBW Calories/Kcals/Kg AdjBW 152.5lb/69.3kg (adjsuted to UBW) Kcals Calculated 2079-2426kcal (30-35kcal/kg) Protein: Adj wt of IBW Protein Calculated 90-104g (1.2-1.5/gkg) Fluid: ml 2079-2426ml (1ml/kcal) Nutritional Problem 3. Problem Problem Malnutrition related to Etiology unknown etiology, energy imbalance aeb Signs/Symptoms: BMI >40 2. Problem Problem Increased kcal and prot needs related to Etiology hypermetabolic state aeb Signs/Symptoms: on HD, sepsis 1. Problem Problem Impaired nutrient utilization related to Etiology end stage renal failure aeb Signs/Symptoms: on HD, BUN 38H, creatinine 5H, phosphorus 5.4H Malnutrition Related to Morbid Obesity Malnutrition related to morbid obesity BMI> or equal to 40 Query Text:(Any 1 Criteria met) Malnutrition related to morbid obesity Yes Intervention/Recommendation Comments 1. Recommend renal diet. Briefly explained renal diet, pt is agreeable to plan. Encourage PO intake. 2. Recommend removing " 1800kcal" restriction as pt is in hypermetabolic state ( sepsis, HD) and obese, requiring more than 1800kcal, weight loss not favorable at this time. 3. Pt reported poor appetite many months, RD recommend oral supplements, pt declined. Expected Outcomes/Goals Expected Outcomes/Goals 1. PO intake to meet at least 75% of estimated nutritional needs.
[2017-03-02] MEDS: MICONAZOLE 2% VG SCH ×2 (16:53→17:10)
[2017-03-02] MEDS: Venelex 60gm Tube TP SCH (16:54)
[2017-03-02] MEDS: Lactobacillus Rhamnosus 10 Billion CFU Capsule PO SCH (17:00)
--- NOTE | 2017-03-02 19:26 | Internal Medicine Prog Note ---
Internal Medicine Subjective - Subjective Service Date: 03/02/17 Patient seen and examined:: with staff Patient is:: asleep, verbal Per staff patient has:: poor appetite, tolerating meds Internal Medicine Objective - Results Result Diagrams: 03/02/17 05:36 03/02/17 05:36 Recent Labs: Laboratory Last Values WBC 20.7 Th/cmm (4.8-10.8) H* 03/02/17 05:36 RBC 2.61 Mil/cmm (3.80-5.20) L 03/02/17 05:36 Hgb 8.0 gm/dL (11.7-16.1) L D 03/02/17 05:36 Hct 23.5 % (35.0-45.0) L* D 03/02/17 05:36 MCV 90.1 fl (81-100) 03/02/17 05:36 MCH 30.8 pg (27.0-31.0) 03/02/17 05:36 MCHC Differential 34.2 pg (28.0-36.0) 03/02/17 05:36 RDW 17.5 % (11.5-20.0) 03/02/17 05:36 Plt Count 49 Th/cmm (150-400) L D 03/02/17 05:36 MPV 7.9 fl 03/02/17 05:36 Neutrophils % 79.9 % (40.0-80.0) 02/27/17 19:30 Band Neutrophils % 1 % (0-10) 03/02/17 05:36 Lymphocytes % 15.4 % (20.0-50.0) L 02/27/17 19:30 Monocytes % 3.8 % (2.0-10.0) 02/27/17 19:30 Eosinophils % 0.8 % (0.0-5.0) 02/27/17 19:30 Basophils % 0.1 % (0.0-2.0) 02/27/17 19:30 Neutrophils (Manual) 78 % (40-80) 03/02/17 05:36 Lymphocytes 14 % (20-50) L 03/02/17 05:36 Monocytes 6 % (2-10) 03/02/17 05:36 Eosinophils 2 % (0-5) 03/01/17 12:26 Basophils 1 % (0-3) 03/01/17 12:26 Metamyelocytes 1 % (0-0) H 03/02/17 05:36 Platelet Estimate DECREASED PLATELETS (NORMAL) 03/02/17 05:36 Platelet Morphology NORMAL (NORMAL) 03/02/17 05:36 Polychromasia 1+ 03/01/17 04:30 Anisocytosis 1+ 03/02/17 05:36 RBC Morph Micro Appear ABNORMAL (NORMAL) 03/02/17 05:36 PT 25.3 SECONDS (9.5-11.5) H 03/02/17 05:36 INR 2.32 (0.5-1.4) H 03/02/17 05:36 PTT (Actin FS) 90.5 SECONDS (26.0-38.0) H* 03/02/17 05:36 Sodium 130 mEq/L (136-145) L 03/02/17 05:36 Potassium 3.5 mEq/L (3.5-5.1) 03/02/17 05:36 Chloride 101 mEq/L (98-107) 03/02/17 05:36 Carbon Dioxide 22.2 mEq/L (21.0-31.0) 03/02/17 05:36 Anion Gap 10.3 (7.0-16.0) 03/02/17 05:36 BUN 30 mg/dL (7-25) H 03/02/17 05:36 Creatinine 4.0 mg/dL (0.6-1.2) H 03/02/17 05:36 Est GFR ( Amer) 14.3 ml/min (>90) 03/02/17 05:36 Est GFR (Non-Af Amer) 11.8 ml/min 03/02/17 05:36 BUN/Creatinine Ratio 7.5 03/02/17 05:36 Glucose 209 mg/dL (70-105) H 03/02/17 05:36 POC Glucose 96 MG/DL (70 - 105) 02/28/17 12:24 Hemoglobin A1c % 4.6 % (4.0-6.0) 02/27/17 19:30 Whole Bld Lactic Acid 1.39 mmol/L (0.60-1.99) 03/01/17 15:56 Calcium 8.2 mg/dL (8.6-10.3) L 03/02/17 05:36 Phosphorus 3.7 mg/dL (2.5-5.0) 03/02/17 05:36 Magnesium 1.8 mg/dL (1.9-2.7) L 03/02/17 05:36 Total Bilirubin 3.2 mg/dL (0.3-1.0) H 03/02/17 05:36 Direct Bilirubin 1.98 mg/dL (0.0-0.2) H 03/02/17 05:36 AST 25 U/L (13-39) 03/02/17 05:36 ALT 4 U/L (7-52) L 03/02/17 05:36 Alkaline Phosphatase 145 U/L (34-104) H 03/02/17 05:36 Total Protein 5.2 gm/dL (6.0-8.3) L 03/02/17 05:36 Albumin 2.2 gm/dL (3.7-5.3) L 03/02/17 05:36 Globulin 3.0 gm/dL 03/02/17 05:36 Albumin/Globulin Ratio 0.7 (1.0-1.8) L 03/02/17 05:36 Gentamicin Peak 8.8 ug/ml (4.0-8.0) 03/01/17 10:00 Gentamicin Trough ug/ml (0.2-2.0) 03/01/17 08:30 Serum Ketones NEGATIVE (NEGATIVE) 02/27/17 19:30 - Physical Exam Vitals and I&O: Vital Signs Temp 98 F 03/02/17 04:00 Pulse 98 03/02/17 07:30 Resp 13 03/02/17 07:00 BP 102/49 03/02/17 07:30 Pulse Ox 98 03/02/17 08:00 Intake & Output 03/02/17 03/02/17 03/03/17 06:59 18:59 06:59 Intake Total 874.833 372.105 Output Total 0 Balance 874.833 372.105 Weight (lbs) 126.099 kg Intake: Intake, IV Amount 874.833 372.105 Diltiazem 125 mg In 222.833 16.667 Dextrose 5% 100 ml @ 10 MG/HR 10 mls/hr IV TITR [facility] Rx#:[id number] Meropenem 500 mg In 100 Sodium Chloride 0.9% 100 ml @ 100 mls/hr IV Q12H [facility] Rx#:[id number] Norepinephrine 8 mg In 250.0 Dextrose 5% 250 ml @ 0 MCG/MIN IV TITR PRN Rx#: [id number] Norepinephrine 8 mg In 250.000 105.438 Dextrose 5% 250 ml @ 0 mls/hr IV PRN [facility] Rx#: [id number] Phytonadione 10 mg In 101 Dextrose 5% 100 ml @ 100 mls/hr IV Q2H [facility] Rx#: [id number] Tigecycline 50 mg In 100 Sodium Chloride 0.9% 100 ml @ 100 mls/hr IV Q12H [facility] Rx#:[id number] Output: Urine 0 Other: # Bowel Movements 0 Stool Characteristics Soft Liquid Active Medications: Current Medications Albuterol Sulfate (Albuterol 2.5mg/3ml Neb Ud) 2.5 mg HHN Q2H PRN PRN Reason: Shortness of Breath Stop: 04/29/17 03:59 Ascorbic Acid (Vitamin C) 500 mg PO DAILY [facility] Stop: 04/29/17 08:59 Last Admin: 03/02/17 16:59 Dose: Not Given Cholecalciferol (Vitamin D3) 2,000 iu PO DAILY [facility] Stop: 04/29/17 08:59 Last Admin: 03/02/17 16:59 Dose: Not Given Diphenhydramine HCl (Benadryl) 25 mg PO Q6H PRN PRN Reason: Itching Stop: 04/29/17 03:39 Escitalopram Oxalate (Lexapro) 10 mg PO DAILY [facility] PRN Reason: Protocol Stop: 04/29/17 08:59 Last Admin: 03/02/17 16:59 Dose: Not Given Famotidine (Pepcid) 20 mg IVP DAILY [facility] Stop: 05/01/17 08:59 Last Admin: 03/02/17 11:17 Dose: 20 mg Fludrocortisone Acetate (Florinef) 0.1 mg PO BID [facility] Stop: 04/29/17 08:59 Last Admin: 03/02/17 16:58 Dose: Not Given Diltiazem HCl 125 mg/ Dextrose 125 mls @ 10 mls/hr IV TITR [facility]; 10 MG/HR PRN Reason: Protocol Stop: 04/29/17 04:14 Last Titration: 03/02/17 09:20 Dose: 0 mg/hr, 0 mls/hr Tigecycline 50 mg/ Sodium (Chloride) 100 mls @ 100 mls/hr IV Q12H [facility] Stop: 04/30/17 11:29 Last Admin: 03/02/17 11:17 Dose: 100 mls/hr Meropenem 500 mg/ Sodium (Chloride) 100 mls @ 100 mls/hr IV Q12H [facility] Stop: 04/30/17 11:44 Last Admin: 03/02/17 11:16 Dose: 100 mls/hr Lactated Ringer's (Lactated Ringer) 1,000 mls @ 0 mls/hr IV .Q0M [facility] PRN Reason: TKO Stop: 03/03/17 09:14 Albumin Human (Albuminar 25%) 25 gm in 100 mls @ 50 mls/hr IV X1 ONE Stop: 03/03/17 14:10 Albumin Human (Albuminar 25%) 25 gm in 100 mls @ 50 mls/hr IV X1 ONE Stop: 03/03/17 14:11 Amino Acids/Electrolytes (Procalamine) 1,000 mls @ 60 mls/hr IV .[id number] [facility] Stop: 03/03/17 16:00 Norepinephrine Bitartrate 8 mg (/ Dextrose) 250 mls @ 0 mls/hr IV TITR PRN; Protocol; 0 MCG/MIN PRN Reason: BP MAINTENANCE (PER PROTOCOL) Stop: 05/01/17 14:16 Last Admin: 03/02/17 15:22 Dose: 8 mcg/min, 15 mls/hr Lactobacillus Rhamnosus (Culturelle) 1 each PO DAILY [facility] Stop: 05/01/17 08:59 Last Admin: 03/02/17 17:00 Dose: Not Given Meperidine HCl (Demerol) 12.5 mg IVP UD PRN PRN Reason: POST-OP PAIN Stop: 03/03/17 09:01 Metoprolol Tartrate (Lopressor) 50 mg PO Q12HR [facility] Stop: 04/29/17 08:59 Last Admin: 03/02/17 16:55 Dose: Not Given Miconazole Nitrate (Miconazole 2% Cream) 1 appl VG BID [facility] Stop: 03/07/17 08:59 Last Admin: 03/02/17 17:10 Dose: 1 appl Miscellaneous (Clinical Monitoring) 1 ea DAILY PRN PRN Reason: RENAL Stop: 04/29/17 10:50 Miscellaneous (Vte Chemical Prophylaxis Screen/ Admission) 1 ea PRN PRN PRN Reason: PROTOCOL Stop: 04/29/17 15:40 Miscellaneous (Probiotic Screen) 1 ea PRN PRN PRN Reason: PROTOCOL Stop: 04/30/17 10:56 Miscellaneous (Tpn Per Pharmacy) 1 ea PRN PRN PRN Reason: PROTOCOL Stop: 04/30/17 18:13 Morphine Sulfate (Morphine) 2 mg IVP Q4HR PRN PRN Reason: Pain (Moderate) Stop: 04/28/17 23:23 Last Admin: 03/01/17 03:00 Dose: 2 mg Ondansetron HCl (Zofran) 4 mg IV PRN PRN PRN Reason: Nausea / Vomiting Stop: 03/03/17 09:01 Sevelamer HCl (Renagel) 800 mg PO TIDWM [facility] Stop: 04/30/17 07:59 Last Admin: 03/02/17 16:58 Dose: Not Given Zinc Sulfate (Zinc Sulfate) 220 mg PO DAILY [facility] Stop: 04/29/17 08:59 Last Admin: 03/02/17 16:55 Dose: Not Given General: weak, lethargic, obese HEENT: NC/AT, PERRLA, EOMI, anicteric sclerae Neck: Supple, No JVD, No thyromegaly, +2 carotid pulse wo bruit Cardiovascular: RRR, Normal S1, Normal S2, tachy Abdomen: soft, tender, positive bowel sound Extremities: edema Neurological: no change (abdominal wall significant for multiple stage 4 opened wounds) Internal Medicine Assmt/Plan - Assessment Assessment: 1'MULTIPLE CALCIPHYLAXIS WOUND OF THE ABDOMINAL WALL 2.DM. 3.SEPSIS. 4.ESRF 5.SEPSIS. 6.POOR INTAKE. 7.SP SURGICAL DEBREDMENT. - Plan Plan: CONTINUE ON CURRENT MEDICATION AND DIET.TPN PER PHARMACY. Nutritional Asmnt/Malnutr-PDOC - Dietary Evaluation Malnutrition Findings (Please click <Entered> for more info): Nutritional Asmnt/Malnutrition Start: 02/28/17 14: 25 Text: Status: Complete Freq: Document 02/28/17 14:32 GSUN (Rec: 02/28/17 14:52 [email or web address] [email or web address]) Nutritional Asmnt/Malnutrition Patient General Information Nutritional Screening High Risk Screening Diagnosis Infectured multiple abdominal wound, sepsis, hypotension Pertinent Medical Hx/Surgical Hx DM, end stage renal failure, obesity, multiple abdominal wound, anemia Subjective Information 71 [address] consult for wounds/calciphylaxis. Pt was lethargic during visit, spoke to at bedside. Briefly explained renal diet, agreeable to plan, not suitble for extensive edu at this time. Pt appeared obese. Pt reported UBW 250lb measured 1 month ago, pt is unsure of dry weight at dialysis center. Pt reported has gradually lost weight 80lb over the past year due to poor appetite and hospitalizations. RD recommended oral supplements, pt denied, stating she has tried and threw up. Current Diet Order/ Nutrition Support Renal, 1800kcal Pertinent Medications Vitamin C, Vitamin D3, D5-0. 45ns, Pepcid, Novolog, Culturelle, Morphine, Zinc Sulfate Pertinent Labs 02/28: BUN 38H, creatinine 5H, phosphorus 5.4H Nutritional Hx/Data Height 1.63 m Height (Calculated Centimeters) 162.6 Current Weight (lbs) 113.398 kg Weight (Calculated Kilograms) 113.4 Weight (Calculated Grams) 286223.1 [place] Body Weight 120 Recent Weight Change Yes Weight Status Morbidly Obese GI Symptoms Skin Integrity/Comment: Bilateral lower extremities pitting 3+. Abdominal wounds/ calciphylaxis Estimated Nutritional Goals BEE in Kcals: Adj wt of IBW Calories/Kcals/Kg AdjBW 152.5lb/69.3kg (adjsuted to UBW) Kcals Calculated 2079-2426kcal (30-35kcal/kg) Protein: Adj wt of IBW Protein Calculated 90-104g (1.2-1.5/gkg) Fluid: ml 2079-2426ml (1ml/kcal) Nutritional Problem 3. Problem Problem Malnutrition related to Etiology unknown etiology, energy imbalance aeb Signs/Symptoms: BMI >40 2. Problem Problem Increased kcal and prot needs related to Etiology hypermetabolic state aeb Signs/Symptoms: on HD, sepsis 1. Problem Problem Impaired nutrient utilization related to Etiology end stage renal failure aeb Signs/Symptoms: on HD, BUN 38H, creatinine 5H, phosphorus 5.4H Malnutrition Related to Morbid Obesity Malnutrition related to morbid obesity BMI> or equal to 40 Query Text:(Any 1 Criteria met) Malnutrition related to morbid obesity Yes Intervention/Recommendation Comments 1. Recommend renal diet. Briefly explained renal diet, pt is agreeable to plan. Encourage PO intake. 2. Recommend removing " 1800kcal" restriction as pt is in hypermetabolic state ( sepsis, HD) and obese, requiring more than 1800kcal, weight loss not favorable at this time. 3. Pt reported poor appetite many months, RD recommend oral supplements, pt declined. Expected Outcomes/Goals Expected Outcomes/Goals 1. PO intake to meet at least 75% of estimated nutritional needs.
[2017-03-02] MEDS: Amino Acids 3% / Electrolytes 1,000 ML IV SCH (19:34)
[2017-03-03] MEDS: Meropenem 500 MG in Sodium Chloride 0.9% 100 ML IV SCH ×3 (00:30→23:54)
[2017-03-03 06:34] LABS: MEAN CELL VOLUME 91.3 fl (81-100); MEAN CORPUSCULAR HEMOGLOBIN 31.4 pg (27.0-31.0); MEAN CORPUSCULAR HGB CONC 34.4 pg (28.0-36.0); MEAN PLATELET VOLUME 8.6 fl; NEUTROPHILE ABSOLUTE 16.6 Th/cmm (1.8-8.0); PLATELET COUNT 39 Th/cmm (150-400); RED BLOOD COUNT 2.33 Mil/cmm (3.80-5.20); RED CELL DISTRIBUTION WIDTH 17.6 % (11.5-20.0)
[2017-03-03 07:00] LABS: HEMATOCRIT 21.2 % (35.0-45.0); HEMOGLOBIN 7.3 gm/dL (11.7-16.1); WHITE BLOOD COUNT 20.2 Th/cmm (4.8-10.8)
[2017-03-03 07:09] LABS: ANION GAP 8.8 (7.0-16.0); BUN/CREATININE RATIO 7.9; CALCIUM SERUM 8.2 mg/dL (8.6-10.3); CARBON DIOXIDE 23.1 mEq/L (21.0-31.0); MAGNESIUM 2.2 mg/dL (1.9-2.7); PHOSPHOROUS 4.1 mg/dL (2.5-5.0); POTASSIUM SERUM 3.9 mEq/L (3.5-5.1)
[2017-03-03 07:18] LABS: CREATININE - SERUM 4.3 mg/dL (0.6-1.2)
[2017-03-03 07:50] LABS: TOTAL CELLS COUNTED 100
[2017-03-03 07:51] LABS: ANISOCYTOSIS 1+; BAND NEUTROPHILE 5 % (0-10); HYPOCHROMIA 1+; NEUTROPHILS 77 % (40-80); PLATELET ESTIMATE DECREASED PLATELETS (NORMAL); POIKILOCYTOSIS 1+; POLYCHROMASIA 1+
[2017-03-03] MEDS ORDERED: Albumin 25% 25gm/100mL 25 GM/100 ML BTL IV ONE ×3 (07:58→12:12)
[2017-03-03] MEDS: Albumin 25% 25gm/100mL 25 GM/100 ML BTL IV ONE ×2 (08:35→12:39)
[2017-03-03] MEDS: MICONAZOLE 2% VG SCH ×3 (10:00→20:02)
--- NOTE | 2017-03-03 10:27 | General Progress Note ---
Subjective - Review of Systems Service Date: 03/03/17 Events since last encounter: will need more debridement of lower extrremites Objective - Results Result Diagrams: 03/03/17 06:29 03/03/17 06:29 Recent Labs: Laboratory Last Values WBC 20.2 Th/cmm (4.8-10.8) H* 03/03/17 06:29 RBC 2.33 Mil/cmm (3.80-5.20) L 03/03/17 06:29 Hgb 7.3 gm/dL (11.7-16.1) L* 03/03/17 06:29 Hct 21.2 % (35.0-45.0) L* 03/03/17 06:29 MCV 91.3 fl (81-100) 03/03/17 06:29 MCH 31.4 pg (27.0-31.0) H 03/03/17 06:29 MCHC Differential 34.4 pg (28.0-36.0) 03/03/17 06:29 RDW 17.6 % (11.5-20.0) 03/03/17 06:29 Plt Count 39 Th/cmm (150-400) L D 03/03/17 06:29 MPV 8.6 fl 03/03/17 06:29 Neutrophils % 79.9 % (40.0-80.0) 02/27/17 19:30 Band Neutrophils % 5 % (0-10) 03/03/17 06:29 Lymphocytes % 15.4 % (20.0-50.0) L 02/27/17 19:30 Monocytes % 3.8 % (2.0-10.0) 02/27/17 19:30 Eosinophils % 0.8 % (0.0-5.0) 02/27/17 19:30 Basophils % 0.1 % (0.0-2.0) 02/27/17 19:30 Neutrophils (Manual) 77 % (40-80) 03/03/17 06:29 Lymphocytes 12 % (20-50) L 03/03/17 06:29 Monocytes 6 % (2-10) 03/03/17 06:29 Eosinophils 2 % (0-5) 03/01/17 12:26 Basophils 1 % (0-3) 03/01/17 12:26 Metamyelocytes 1 % (0-0) H 03/02/17 05:36 Hypochromia 1+ 03/03/17 06:29 Platelet Estimate DECREASED PLATELETS (NORMAL) 03/03/17 06:29 Platelet Morphology NORMAL (NORMAL) 03/02/17 05:36 Polychromasia 1+ 03/03/17 06:29 Poikilocytosis 1+ 03/03/17 06:29 Anisocytosis 1+ 03/03/17 06:29 RBC Morph Micro Appear ABNORMAL (NORMAL) 03/02/17 05:36 PT 25.3 SECONDS (9.5-11.5) H 03/02/17 05:36 INR 2.32 (0.5-1.4) H 03/02/17 05:36 PTT (Actin FS) 90.5 SECONDS (26.0-38.0) H* 03/02/17 05:36 Sodium 128 mEq/L (136-145) L 03/03/17 06:29 Potassium 3.9 mEq/L (3.5-5.1) 03/03/17 06:29 Chloride 100 mEq/L (98-107) 03/03/17 06:29 Carbon Dioxide 23.1 mEq/L (21.0-31.0) 03/03/17 06:29 Anion Gap 8.8 (7.0-16.0) 03/03/17 06:29 BUN 34 mg/dL (7-25) H 03/03/17 06:29 Creatinine 4.3 mg/dL (0.6-1.2) H* 03/03/17 06:29 Est GFR ( Amer) 13.1 ml/min (>90) 03/03/17 06:29 Est GFR (Non-Af Amer) 10.9 ml/min 03/03/17 06:29 BUN/Creatinine Ratio 7.9 03/03/17 06:29 Glucose 107 mg/dL (70-105) H 03/03/17 06:29 POC Glucose 96 MG/DL (70 - 105) 02/28/17 12:24 Hemoglobin A1c % 4.6 % (4.0-6.0) 02/27/17 19:30 Whole Bld Lactic Acid 1.39 mmol/L (0.60-1.99) 03/01/17 15:56 Calcium 8.2 mg/dL (8.6-10.3) L 03/03/17 06:29 Phosphorus 4.1 mg/dL (2.5-5.0) 03/03/17 06:29 Magnesium 2.2 mg/dL (1.9-2.7) 03/03/17 06:29 Total Bilirubin 3.2 mg/dL (0.3-1.0) H 03/02/17 05:36 Direct Bilirubin 1.98 mg/dL (0.0-0.2) H 03/02/17 05:36 AST 25 U/L (13-39) 03/02/17 05:36 ALT 4 U/L (7-52) L 03/02/17 05:36 Alkaline Phosphatase 145 U/L (34-104) H 03/02/17 05:36 Total Protein 5.2 gm/dL (6.0-8.3) L 03/02/17 05:36 Albumin 2.2 gm/dL (3.7-5.3) L 03/02/17 05:36 Globulin 3.0 gm/dL 03/02/17 05:36 Albumin/Globulin Ratio 0.7 (1.0-1.8) L 03/02/17 05:36 Triglycerides 112 mg/dL (<150) 03/03/17 06:29 Gentamicin Peak 8.8 ug/ml (4.0-8.0) 03/01/17 10:00 Gentamicin Trough ug/ml (0.2-2.0) 03/01/17 08:30 Serum Ketones NEGATIVE (NEGATIVE) 02/27/17 19:30 Blood Type A POSITIVE 03/03/17 09:10 Antibody Screen NEGATIVE 03/03/17 09:10 Crossmatch See Detail 03/03/17 09:10 - Physical Exam Vitals and I&O: Vital Signs Temp 96.8 F 03/03/17 04:00 Pulse 94 03/03/17 09:15 Resp 13 03/03/17 09:15 BP 107/54 03/03/17 07:30 Pulse Ox 100 03/03/17 09:15 Intake & Output 03/02/17 03/03/17 03/03/17 18:59 06:59 18:59 Intake Total 572.105 260 Output Total 75 Balance 572.105 185 Weight (lbs) 124.284 kg Intake: Intake, IV Amount 572.105 200 Diltiazem 125 mg In 16.667 Dextrose 5% 100 ml @ 10 MG/HR 10 mls/hr IV TITR [facility] Rx#:[id number] Meropenem 500 mg In 100 100 Sodium Chloride 0.9% 100 ml @ 100 mls/hr IV Q12H [facility] Rx#:[id number] Norepinephrine 8 mg In 250.0 Dextrose 5% 250 ml @ 0 MCG/MIN IV TITR PRN Rx#: [id number] Norepinephrine 8 mg In 105.438 Dextrose 5% 250 ml @ 0 mls/hr IV PRN [facility] Rx#: [id number] Tigecycline 50 mg In 100 100 Sodium Chloride 0.9% 100 ml @ 100 mls/hr IV Q12H [facility] Rx#:[id number] Oral 60 Output: Drainage 75 Left Lower Abdomen 50 Right Lower Abdomen 25 Urine 0 Other: # Bowel Movements 0 Stool Characteristics Soft Liquid Active Medications: Current Medications Albuterol Sulfate (Albuterol 2.5mg/3ml Neb Ud) 2.5 mg HHN Q2H PRN PRN Reason: Shortness of Breath Stop: 04/29/17 03:59 Ascorbic Acid (Vitamin C) 500 mg PO DAILY [facility] Stop: 04/29/17 08:59 Last Admin: 03/02/17 16:59 Dose: Not Given Cholecalciferol (Vitamin D3) 2,000 iu PO DAILY [facility] Stop: 04/29/17 08:59 Last Admin: 03/02/17 16:59 Dose: Not Given Diphenhydramine HCl (Benadryl) 25 mg PO Q6H PRN PRN Reason: Itching Stop: 04/29/17 03:39 Escitalopram Oxalate (Lexapro) 10 mg PO DAILY [facility] PRN Reason: Protocol Stop: 04/29/17 08:59 Last Admin: 03/02/17 16:59 Dose: Not Given Famotidine (Pepcid) 20 mg IVP DAILY [facility] Stop: 05/01/17 08:59 Last Admin: 03/02/17 11:17 Dose: 20 mg Fludrocortisone Acetate (Florinef) 0.1 mg PO BID [facility] Stop: 04/29/17 08:59 Last Admin: 03/02/17 16:58 Dose: Not Given Diltiazem HCl 125 mg/ Dextrose 125 mls @ 10 mls/hr IV TITR [facility]; 10 MG/HR PRN Reason: Protocol Stop: 04/29/17 04:14 Last Titration: 03/02/17 09:20 Dose: 0 mg/hr, 0 mls/hr Tigecycline 50 mg/ Sodium (Chloride) 100 mls @ 100 mls/hr IV Q12H [facility] Stop: 04/30/17 11:29 Last Infusion: 03/03/17 00:32 Dose: Infused Meropenem 500 mg/ Sodium (Chloride) 100 mls @ 100 mls/hr IV Q12H [facility] Stop: 04/30/17 11:44 Last Infusion: 03/03/17 01:30 Dose: Infused Albumin Human (Albuminar 25%) 25 gm in 100 mls @ 50 mls/hr IV X1 ONE Stop: 03/03/17 14:10 Albumin Human (Albuminar 25%) 25 gm in 100 mls @ 50 mls/hr IV X1 ONE Stop: 03/03/17 14:11 Amino Acids/Electrolytes (Procalamine) 1,000 mls @ 60 mls/hr IV .[id number] [facility] Stop: 03/03/17 16:00 Last Admin: 03/02/17 19:34 Dose: 60 mls/hr Norepinephrine Bitartrate 8 mg (/ Dextrose) 250 mls @ 0 mls/hr IV TITR PRN; Protocol; 0 MCG/MIN PRN Reason: BP MAINTENANCE (PER PROTOCOL) Stop: 05/01/17 14:16 Last Admin: 03/02/17 15:22 Dose: 8 mcg/min, 15 mls/hr Multivitamins/Minerals 10 ml/Amino Acids/Electrolytes/ Fat Emulsion Intravenous / Dextrose 1,440 mls @ 60 mls/hr IV .Q24H [facility] Stop: 05/02/17 15:59 Lactobacillus Rhamnosus (Culturelle) 1 each PO DAILY [facility] Stop: 05/01/17 08:59 Last Admin: 03/02/17 17:00 Dose: Not Given Metoprolol Tartrate (Lopressor) 50 mg PO Q12HR [facility] Stop: 04/29/17 08:59 Last Admin: 03/02/17 21:03 Dose: Not Given Miconazole Nitrate (Miconazole 2% Cream) 1 appl VG BID [facility] Stop: 03/07/17 08:59 Last Admin: 03/02/17 17:10 Dose: 1 appl Miscellaneous (Clinical Monitoring) 1 ea [facility] DAILY PRN PRN Reason: RENAL Stop: 04/29/17 10:50 Miscellaneous (Vte Chemical Prophylaxis Screen/ Admission) 1 ea [facility] PRN PRN PRN Reason: PROTOCOL Stop: 04/29/17 15:40 Miscellaneous (Probiotic Screen) 1 ea MC PRN PRN PRN Reason: PROTOCOL Stop: 04/30/17 10:56 Miscellaneous (Tpn Per Pharmacy) 1 ea [facility] PRN PRN PRN Reason: PROTOCOL Stop: 04/30/17 18:13 Morphine Sulfate (Morphine) 2 mg IVP Q4HR PRN PRN Reason: Pain (Moderate) Stop: 04/28/17 23:23 Last Admin: 03/01/17 03:00 Dose: 2 mg Sevelamer HCl (Renagel) 800 mg PO TIDWM [facility] Stop: 04/30/17 07:59 Last Admin: 03/02/17 16:58 Dose: Not Given Zinc Sulfate (Zinc Sulfate) 220 mg PO DAILY [facility] Stop: 04/29/17 08:59 Last Admin: 03/02/17 16:55 Dose: Not Given General: No acute distress HEENT: Atraumatic, Mucous membr. moist/pink Neck: Supple, +2 carotid pulse wo bruit Cardiovascular: Regular rate, Normal S1, Normal S2 Lungs: Other (few rhonchi) Abdomen: Obese, Other (multiple abd wounds) Extremities: Other (ecchymosis, hematomas, petecchiae), no Edema Neurological: Other (stuporous) Skin: Rash, Other Psych/Mental Status: Mood NL Nutritional Asmnt/Malnutr-PDOC - Dietary Evaluation Malnutrition Findings (Please click <Entered> for more info): Nutritional Asmnt/Malnutrition Start: 02/28/17 14: 25 Text: Status: Complete Freq: Document 02/28/17 14:32 GSUN (Rec: 02/28/17 14:52 [id number] [id number]) Nutritional Asmnt/Malnutrition Patient General Information Nutritional Screening High Risk Screening Diagnosis Infectured multiple abdominal wound, sepsis, hypotension Pertinent Medical Hx/Surgical Hx DM, end stage renal failure, obesity, multiple abdominal wound, anemia Subjective Information 71 [address] consult for wounds/calciphylaxis. Pt was lethargic during visit, spoke to at bedside. Briefly explained renal diet, agreeable to plan, not suitble for extensive edu at this time. Pt appeared obese. Pt reported UBW 250lb measured 1 month ago, pt is unsure of dry weight at dialysis center. Pt reported has gradually lost weight 80lb over the past year due to poor appetite and hospitalizations. RD recommended oral supplements, pt denied, stating she has tried and threw up. Current Diet Order/ Nutrition Support Renal, 1800kcal Pertinent Medications Vitamin C, Vitamin D3, D5-0. 45ns, Pepcid, Novolog, Culturelle, Morphine, Zinc Sulfate Pertinent Labs 02/28: BUN 38H, creatinine 5H, phosphorus 5.4H Nutritional Hx/Data Height 1.63 m Height (Calculated Centimeters) 162.6 Current Weight (lbs) 113.398 kg Weight (Calculated Kilograms) 113.4 Weight (Calculated Grams) 902601.1 [place] Body Weight 120 Recent Weight Change Yes Weight Status Morbidly Obese GI Symptoms Skin Integrity/Comment: Bilateral lower extremities pitting 3+. Abdominal wounds/ calciphylaxis Estimated Nutritional Goals BEE in Kcals: Adj wt of IBW Calories/Kcals/Kg AdjBW 152.5lb/69.3kg (adjsuted to UBW) Kcals Calculated 2079-2426kcal (30-35kcal/kg) Protein: Adj wt of IBW Protein Calculated 90-104g (1.2-1.5/gkg) Fluid: ml 2079-2426ml (1ml/kcal) Nutritional Problem 3. Problem Problem Malnutrition related to Etiology unknown etiology, energy imbalance aeb Signs/Symptoms: BMI >40 2. Problem Problem Increased kcal and prot needs related to Etiology hypermetabolic state aeb Signs/Symptoms: on HD, sepsis 1. Problem Problem Impaired nutrient utilization related to Etiology end stage renal failure aeb Signs/Symptoms: on HD, BUN 38H, creatinine 5H, phosphorus 5.4H Malnutrition Related to Morbid Obesity Malnutrition related to morbid obesity BMI> or equal to 40 Query Text:(Any 1 Criteria met) Malnutrition related to morbid obesity Yes Intervention/Recommendation Comments 1. Recommend renal diet. Briefly explained renal diet, pt is agreeable to plan. Encourage PO intake. 2. Recommend removing " 1800kcal" restriction as pt is in hypermetabolic state ( sepsis, HD) and obese, requiring more than 1800kcal, weight loss not favorable at this time. 3. Pt reported poor appetite many months, RD recommend oral supplements, pt declined. Expected Outcomes/Goals Expected Outcomes/Goals 1. PO intake to meet at least 75% of estimated nutritional needs.
[2017-03-03] MEDS: Amino Acids 3% / Electrolytes 1,000 ML IV SCH (10:29)
--- NOTE | 2017-03-03 12:32 | General Progress Note ---
Subjective - Review of Systems Service Date: 03/03/17 Subjective: stuporous, comfortable Objective - Results Result Diagrams: 03/03/17 06:29 03/03/17 06:29 Recent Labs: Laboratory Last Values WBC 20.2 Th/cmm (4.8-10.8) H* 03/03/17 06:29 RBC 2.33 Mil/cmm (3.80-5.20) L 03/03/17 06:29 Hgb 7.3 gm/dL (11.7-16.1) L* 03/03/17 06:29 Hct 21.2 % (35.0-45.0) L* 03/03/17 06:29 MCV 91.3 fl (81-100) 03/03/17 06:29 MCH 31.4 pg (27.0-31.0) H 03/03/17 06:29 MCHC Differential 34.4 pg (28.0-36.0) 03/03/17 06:29 RDW 17.6 % (11.5-20.0) 03/03/17 06:29 Plt Count 39 Th/cmm (150-400) L D 03/03/17 06:29 MPV 8.6 fl 03/03/17 06:29 Neutrophils % 79.9 % (40.0-80.0) 02/27/17 19:30 Band Neutrophils % 5 % (0-10) 03/03/17 06:29 Lymphocytes % 15.4 % (20.0-50.0) L 02/27/17 19:30 Monocytes % 3.8 % (2.0-10.0) 02/27/17 19:30 Eosinophils % 0.8 % (0.0-5.0) 02/27/17 19:30 Basophils % 0.1 % (0.0-2.0) 02/27/17 19:30 Neutrophils (Manual) 77 % (40-80) 03/03/17 06:29 Lymphocytes 12 % (20-50) L 03/03/17 06:29 Monocytes 6 % (2-10) 03/03/17 06:29 Eosinophils 2 % (0-5) 03/01/17 12:26 Basophils 1 % (0-3) 03/01/17 12:26 Metamyelocytes 1 % (0-0) H 03/02/17 05:36 Hypochromia 1+ 03/03/17 06:29 Platelet Estimate DECREASED PLATELETS (NORMAL) 03/03/17 06:29 Platelet Morphology NORMAL (NORMAL) 03/02/17 05:36 Polychromasia 1+ 03/03/17 06:29 Poikilocytosis 1+ 03/03/17 06:29 Anisocytosis 1+ 03/03/17 06:29 RBC Morph Micro Appear ABNORMAL (NORMAL) 03/02/17 05:36 PT 25.3 SECONDS (9.5-11.5) H 03/02/17 05:36 INR 2.32 (0.5-1.4) H 03/02/17 05:36 PTT (Actin FS) 90.5 SECONDS (26.0-38.0) H* 03/02/17 05:36 Sodium 128 mEq/L (136-145) L 03/03/17 06:29 Potassium 3.9 mEq/L (3.5-5.1) 03/03/17 06:29 Chloride 100 mEq/L (98-107) 03/03/17 06:29 Carbon Dioxide 23.1 mEq/L (21.0-31.0) 03/03/17 06:29 Anion Gap 8.8 (7.0-16.0) 03/03/17 06:29 BUN 34 mg/dL (7-25) H 03/03/17 06:29 Creatinine 4.3 mg/dL (0.6-1.2) H* 03/03/17 06:29 Est GFR ( Amer) 13.1 ml/min (>90) 03/03/17 06:29 Est GFR (Non-Af Amer) 10.9 ml/min 03/03/17 06:29 BUN/Creatinine Ratio 7.9 03/03/17 06:29 Glucose 107 mg/dL (70-105) H 03/03/17 06:29 POC Glucose 96 MG/DL (70 - 105) 02/28/17 12:24 Hemoglobin A1c % 4.6 % (4.0-6.0) 02/27/17 19:30 Whole Bld Lactic Acid 1.39 mmol/L (0.60-1.99) 03/01/17 15:56 Calcium 8.2 mg/dL (8.6-10.3) L 03/03/17 06:29 Phosphorus 4.1 mg/dL (2.5-5.0) 03/03/17 06:29 Magnesium 2.2 mg/dL (1.9-2.7) 03/03/17 06:29 Total Bilirubin 3.2 mg/dL (0.3-1.0) H 03/02/17 05:36 Direct Bilirubin 1.98 mg/dL (0.0-0.2) H 03/02/17 05:36 AST 25 U/L (13-39) 03/02/17 05:36 ALT 4 U/L (7-52) L 03/02/17 05:36 Alkaline Phosphatase 145 U/L (34-104) H 03/02/17 05:36 Total Protein 5.2 gm/dL (6.0-8.3) L 03/02/17 05:36 Albumin 2.2 gm/dL (3.7-5.3) L 03/02/17 05:36 Globulin 3.0 gm/dL 03/02/17 05:36 Albumin/Globulin Ratio 0.7 (1.0-1.8) L 03/02/17 05:36 Triglycerides 112 mg/dL (<150) 03/03/17 06:29 Gentamicin Peak 8.8 ug/ml (4.0-8.0) 03/01/17 10:00 Gentamicin Trough ug/ml (0.2-2.0) 03/01/17 08:30 Serum Ketones NEGATIVE (NEGATIVE) 02/27/17 19:30 Blood Type A POSITIVE 03/03/17 09:10 Antibody Screen NEGATIVE 03/03/17 09:10 Crossmatch See Detail 03/03/17 09:10 - Physical Exam Vitals and I&O: Vital Signs Temp 96.8 F 03/03/17 04:00 Pulse 94 03/03/17 09:15 Resp 13 03/03/17 09:15 BP 107/54 03/03/17 07:30 Pulse Ox 100 03/03/17 09:15 Intake & Output 03/02/17 03/03/17 03/03/17 18:59 06:59 18:59 Intake Total 572.020 706 0139.812 Output Total 75 Balance 572.748 643 3187.812 Weight (lbs) 124.284 kg Intake: Intake, IV Amount 572.204 226 1872.812 Amino Acids 3% / 895 Electrolytes 1,000 ml @ 60 mls/hr IV .[id number] [facility] Rx#:[id number] Diltiazem 125 mg In 16.667 Dextrose 5% 100 ml @ 10 MG/HR 10 mls/hr IV TITR [facility] Rx#:[id number] Meropenem 500 mg In 100 100 Sodium Chloride 0.9% 100 ml @ 100 mls/hr IV Q12H [facility] Rx#:[id number] Norepinephrine 8 mg In 250.0 243.812 Dextrose 5% 250 ml @ 0 MCG/MIN IV TITR PRN Rx#: [id number] Norepinephrine 8 mg In 105.438 Dextrose 5% 250 ml @ 0 mls/hr IV PRN [facility] Rx#: [id number] Tigecycline 50 mg In 100 100 Sodium Chloride 0.9% 100 ml @ 100 mls/hr IV Q12H [facility] Rx#:[id number] Oral 60 Output: Drainage 75 Left Lower Abdomen 50 Right Lower Abdomen 25 Urine 0 Other: # Bowel Movements 0 Stool Characteristics Soft Liquid Active Medications: Current Medications Albuterol Sulfate (Albuterol 2.5mg/3ml Neb Ud) 2.5 mg HHN Q2H PRN PRN Reason: Shortness of Breath Stop: 04/29/17 03:59 Ascorbic Acid (Vitamin C) 500 mg PO DAILY [facility] Stop: 04/29/17 08:59 Last Admin: 03/02/17 16:59 Dose: Not Given Cholecalciferol (Vitamin D3) 2,000 iu PO DAILY [facility] Stop: 04/29/17 08:59 Last Admin: 03/02/17 16:59 Dose: Not Given Diphenhydramine HCl (Benadryl) 25 mg PO Q6H PRN PRN Reason: Itching Stop: 04/29/17 03:39 Escitalopram Oxalate (Lexapro) 10 mg PO DAILY [facility] PRN Reason: Protocol Stop: 04/29/17 08:59 Last Admin: 03/02/17 16:59 Dose: Not Given Famotidine (Pepcid) 20 mg IVP DAILY [facility] Stop: 05/01/17 08:59 Last Admin: 03/03/17 10:28 Dose: 20 mg Fludrocortisone Acetate (Florinef) 0.1 mg PO BID [facility] Stop: 04/29/17 08:59 Last Admin: 03/02/17 16:58 Dose: Not Given Diltiazem HCl 125 mg/ Dextrose 125 mls @ 10 mls/hr IV TITR [facility]; 10 MG/HR PRN Reason: Protocol Stop: 04/29/17 04:14 Last Titration: 03/02/17 09:20 Dose: 0 mg/hr, 0 mls/hr Tigecycline 50 mg/ Sodium (Chloride) 100 mls @ 100 mls/hr IV Q12H [facility] Stop: 04/30/17 11:29 Last Infusion: 03/03/17 00:32 Dose: Infused Meropenem 500 mg/ Sodium (Chloride) 100 mls @ 100 mls/hr IV Q12H [facility] Stop: 04/30/17 11:44 Last Infusion: 03/03/17 01:30 Dose: Infused Albumin Human (Albuminar 25%) 25 gm in 100 mls @ 50 mls/hr IV X1 ONE Stop: 03/03/17 14:10 Albumin Human (Albuminar 25%) 25 gm in 100 mls @ 50 mls/hr IV X1 ONE Stop: 03/03/17 14:11 Amino Acids/Electrolytes (Procalamine) 1,000 mls @ 60 mls/hr IV .[id number] [facility] Stop: 03/03/17 16:00 Last Admin: 03/03/17 10:29 Dose: 60 mls/hr Norepinephrine Bitartrate 8 mg (/ Dextrose) 250 mls @ 0 mls/hr IV TITR PRN; Protocol; 0 MCG/MIN PRN Reason: BP MAINTENANCE (PER PROTOCOL) Stop: 05/01/17 14:16 Last Admin: 03/03/17 10:35 Dose: 4 mcg/min, 7.5 mls/hr Multivitamins/Minerals 10 ml/Amino Acids/Electrolytes/ Fat Emulsion Intravenous / Dextrose 1,440 mls @ 60 mls/hr IV .Q24H [facility] Stop: 05/02/17 15:59 Lactobacillus Rhamnosus (Culturelle) 1 each PO DAILY [facility] Stop: 05/01/17 08:59 Last Admin: 03/02/17 17:00 Dose: Not Given Metoprolol Tartrate (Lopressor) 50 mg PO Q12HR [facility] Stop: 04/29/17 08:59 Last Admin: 03/02/17 21:03 Dose: Not Given Miconazole Nitrate (Miconazole 2% Cream) 1 appl VG BID [facility] Stop: 03/07/17 08:59 Last Admin: 03/03/17 10:28 Dose: 1 appl Miscellaneous (Clinical Monitoring) 1 ea [facility] DAILY PRN PRN Reason: RENAL Stop: 04/29/17 10:50 Miscellaneous (Vte Chemical Prophylaxis Screen/ Admission) 1 [facility] PRN PRN PRN Reason: PROTOCOL Stop: 04/29/17 15:40 Miscellaneous (Probiotic Screen) 1 ea [facility] PRN PRN PRN Reason: PROTOCOL Stop: 04/30/17 10:56 Miscellaneous (Tpn Per Pharmacy) 1 ea [facility] PRN PRN PRN Reason: PROTOCOL Stop: 04/30/17 18:13 Morphine Sulfate (Morphine) 2 mg IVP Q4HR PRN PRN Reason: Pain (Moderate) Stop: 04/28/17 23:23 Last Admin: 03/01/17 03:00 Dose: 2 mg Sevelamer HCl (Renagel) 800 mg PO TIDWM [facility] Stop: 04/30/17 07:59 Last Admin: 03/02/17 16:58 Dose: Not Given Zinc Sulfate (Zinc Sulfate) 220 mg PO DAILY [facility] Stop: 04/29/17 08:59 Last Admin: 03/02/17 16:55 Dose: Not Given General: No acute distress HEENT: Atraumatic, Mucous membr. moist/pink Neck: Supple, +2 carotid pulse wo bruit Cardiovascular: Regular rate, Normal S1, Normal S2 Lungs: Other (few rhonchi) Abdomen: Obese, Other (multiple abd wounds) Extremities: Other (ecchymosis, hematomas, petecchiae), no Edema Neurological: Sensation intact, Other (stuporous) Skin: Rash, Other Psych/Mental Status: Mood NL Assessment/Plan - Assessment Assessment: ESRD on HD Acute on chronic nonhealing abdominal wounds status post debridement Severe malnutrition Obesity hypoventilation syndrome Morbid obesity Type 2 diabetes mellitus Essential hypertension Anemia of chronic kidney disease Chronic atrial fibrillation Coronary artery disease 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 - Plan Plan: Lab - Result Diagrams 03/01/17 04:30 03/01/17 04:30 Current Medications Albuterol Sulfate (Albuterol 2.5mg/3ml Neb Ud) 2.5 mg HHN Q2H PRN PRN Reason: Shortness of Breath Stop: 04/29/17 03:59 Ascorbic Acid (Vitamin C) 500 mg PO DAILY [facility] Stop: 04/29/17 08:59 Last Admin: 03/01/17 08:51 Dose: Not Given Cholecalciferol (Vitamin D3) 2,000 iu PO DAILY [facility] Stop: 04/29/17 08:59 Last Admin: 03/01/17 08:51 Dose: Not Given Diphenhydramine HCl (Benadryl) 25 mg PO Q6H PRN PRN Reason: Itching Stop: 04/29/17 03:39 Escitalopram Oxalate (Lexapro) 10 mg PO DAILY [facility] PRN Reason: Protocol Stop: 04/29/17 08:59 Last Admin: 03/01/17 08:52 Dose: Not Given Famotidine (Pepcid) 20 mg PO BID [facility] Stop: 04/29/17 08:59 Last Admin: 03/01/17 08:52 Dose: Not Given Fludrocortisone Acetate (Florinef) 0.1 mg PO BID [facility] Stop: 04/29/17 08:59 Last Admin: 03/01/17 08:52 Dose: Not Given Norepinephrine Bitartrate 4 mg (/ Dextrose) 254 mls @ 0 mls/hr IV TITR PRN; Protocol; Per Protocol PRN Reason: BP MAINTENANCE (PER PROTOCOL) Stop: 04/28/17 23:29 Last Admin: 03/01/17 12:31 Dose: 1.5 mcg/min, 5.71 mls/hr Clindamycin Phosphate (Cleocin Pb) 600 mg in 50 mls @ 100 mls/hr IV Q8HR [facility] Stop: 04/29/17 04:59 Last Admin: 03/01/17 06:07 Dose: 100 mls/hr Diltiazem HCl 125 mg/ Dextrose 125 mls @ 10 mls/hr IV TITR [facility]; 10 MG/HR PRN Reason: Protocol Stop: 04/29/17 04:14 Last Admin: 03/01/17 06:47 Dose: 10 mg/hr, 10 mls/hr Gentamicin Sulfate 160 mg/ (Sodium Chloride) 104 mls @ 200 mls/hr IV Q48H [facility] Stop: 04/30/17 08:59 Last Admin: 03/01/17 09:00 Dose: 200 mls/hr Dextrose/Sodium Chloride (D5-0.45ns) 1,000 mls @ 75 mls/hr IV .[id number] [facility] Stop: 04/29/17 13:08 Last Admin: 03/01/17 05:37 Dose: 75 mls/hr Levofloxacin (Levaquin Pb) 250 mg in 50 mls @ 50 mls/hr IV Q48HR [facility] Stop: 04/29/17 16:59 Last Infusion: 02/28/17 18:15 Dose: Infused Lactobacillus Rhamnosus (Culturelle) 1 each PO DAILY [facility] Stop: 04/29/17 08:59 Last Admin: 03/01/17 08:53 Dose: Not Given Lactobacillus Rhamnosus (Culturelle) 1 each PO DAILY [facility] Stop: 05/01/17 08:59 Metoprolol Tartrate (Lopressor) 50 mg PO Q12HR [facility] Stop: 04/29/17 08:59 Last Admin: 03/01/17 08:53 Dose: Not Given Miconazole Nitrate (Miconazole 2% Cream) 1 appl VG BID [facility] Stop: 03/07/17 08:59 Last Admin: 03/01/17 08:53 Dose: 1 appl Miscellaneous (Clinical Monitoring) 1 ea DAILY PRN PRN Reason: RENAL Stop: 04/29/17 10:50 Miscellaneous (Vte Chemical Prophylaxis Screen/ Admission) 1 [facility] PRN PRN PRN Reason: PROTOCOL Stop: 04/29/17 15:40 Miscellaneous (Probiotic Screen) 1 [facility] PRN PRN PRN Reason: PROTOCOL Stop: 04/30/17 10:56 Morphine Sulfate (Morphine) 2 mg IVP Q4HR PRN PRN Reason: Pain (Moderate) Stop: 04/28/17 23:23 Last Admin: 03/01/17 03:00 Dose: 2 mg Phytonadione (Mephyton) 10 mg PO TID [facility] Stop: 03/03/17 13:59 Last Admin: 03/01/17 08:54 Dose: Not Given Sevelamer HCl (Renagel) 800 mg PO TIDWM [facility] Stop: 04/30/17 07:59 Last Admin: 03/01/17 08:50 Dose: Not Given Zinc Sulfate (Zinc Sulfate) 220 mg PO DAILY [facility] Stop: 04/29/17 08:59 Last Admin: 03/01/17 08:54 Dose: Not Given schedule for hd today Blood pressure supported by levothyroid at 2 mcg/m Will decrease IV fluids due to possible fluid overload just had sharp debridement currently receiving 1 unit prbc Nutritional Asmnt/Malnutr-PDOC - Dietary Evaluation Malnutrition Findings (Please click <Entered> for more info): Nutritional Asmnt/Malnutrition Start: 02/28/17 14: 25 Text: Status: Complete Freq: Document 02/28/17 14:32 GSUN (Rec: 02/28/17 14:52 [id number]) Nutritional Asmnt/Malnutrition Patient General Information Nutritional Screening High Risk Screening Diagnosis Infectured multiple abdominal wound, sepsis, hypotension Pertinent Medical Hx/Surgical Hx DM, end stage renal failure, obesity, multiple abdominal wound, anemia Subjective Information 71 [address] consult for wounds/calciphylaxis. Pt was lethargic during visit, spoke to at bedside. Briefly explained renal diet, agreeable to plan, not suitble for extensive edu at this time. Pt appeared obese. Pt reported UBW 250lb measured 1 month ago, pt is unsure of dry weight at dialysis center. Pt reported has gradually lost weight 80lb over the past year due to poor appetite and hospitalizations. RD recommended oral supplements, pt denied, stating she has tried and threw up. Current Diet Order/ Nutrition Support Renal, 1800kcal Pertinent Medications Vitamin C, Vitamin D3, D5-0. 45ns, Pepcid, Novolog, Culturelle, Morphine, Zinc Sulfate Pertinent Labs /: BUN 38H, creatinine 5H, phosphorus 5.4H Nutritional Hx/Data Height 1.63 m Height (Calculated Centimeters) 162.6 Current Weight (lbs) 113.398 kg Weight (Calculated Kilograms) 113.4 Weight (Calculated Grams) 488018.1 [place] Body Weight 120 Recent Weight Change Yes Weight Status Morbidly Obese GI Symptoms Skin Integrity/Comment: Bilateral lower extremities pitting 3+. Abdominal wounds/ calciphylaxis Estimated Nutritional Goals BEE in Kcals: Adj wt of IBW Calories/Kcals/Kg AdjBW 152.5lb/69.3kg (adjsuted to UBW) Kcals Calculated 2079-2426kcal (30-35kcal/kg) Protein: Adj wt of IBW Protein Calculated 90-104g (1.2-1.5/gkg) Fluid: ml 2079-2426ml (1ml/kcal) Nutritional Problem 3. Problem Problem Malnutrition related to Etiology unknown etiology, energy imbalance aeb Signs/Symptoms: BMI >40 2. Problem Problem Increased kcal and prot needs related to Etiology hypermetabolic state aeb Signs/Symptoms: on HD, sepsis 1. Problem Problem Impaired nutrient utilization related to Etiology end stage renal failure aeb Signs/Symptoms: on HD, BUN 38H, creatinine 5H, phosphorus 5.4H Malnutrition Related to Morbid Obesity Malnutrition related to morbid obesity BMI> or equal to 40 Query Text:(Any 1 Criteria met) Malnutrition related to morbid obesity Yes Intervention/Recommendation Comments 1. Recommend renal diet. Briefly explained renal diet, pt is agreeable to plan. Encourage PO intake. 2. Recommend removing " 1800kcal" restriction as pt is in hypermetabolic state ( sepsis, HD) and obese, requiring more than 1800kcal, weight loss not favorable at this time. 3. Pt reported poor appetite many months, RD recommend oral supplements, pt declined. Expected Outcomes/Goals Expected Outcomes/Goals 1. PO intake to meet at least 75% of estimated nutritional needs.
[2017-03-03 14:11] LABS: HEP B CORE IGM Negative (Negative); HEP C ANTIBODY <0.1 s/co ratio (0.0-0.9)
--- NOTE | 2017-03-03 15:04 | General Progress Note ---
Subjective - Review of Systems Service Date: 03/03/17 Subjective: resting in bed somnolent but arousable Objective - Results Result Diagrams: 03/03/17 06:29 03/03/17 06:29 Recent Labs: Laboratory Last Values WBC 20.2 Th/cmm (4.8-10.8) H* 03/03/17 06:29 RBC 2.33 Mil/cmm (3.80-5.20) L 03/03/17 06:29 Hgb 7.3 gm/dL (11.7-16.1) L* 03/03/17 06:29 Hct 21.2 % (35.0-45.0) L* 03/03/17 06:29 MCV 91.3 fl (81-100) 03/03/17 06:29 MCH 31.4 pg (27.0-31.0) H 03/03/17 06:29 MCHC Differential 34.4 pg (28.0-36.0) 03/03/17 06:29 RDW 17.6 % (11.5-20.0) 03/03/17 06:29 Plt Count 39 Th/cmm (150-400) L D 03/03/17 06:29 MPV 8.6 fl 03/03/17 06:29 Neutrophils % 79.9 % (40.0-80.0) 02/27/17 19:30 Band Neutrophils % 5 % (0-10) 03/03/17 06:29 Lymphocytes % 15.4 % (20.0-50.0) L 02/27/17 19:30 Monocytes % 3.8 % (2.0-10.0) 02/27/17 19:30 Eosinophils % 0.8 % (0.0-5.0) 02/27/17 19:30 Basophils % 0.1 % (0.0-2.0) 02/27/17 19:30 Neutrophils (Manual) 77 % (40-80) 03/03/17 06: Lymphocytes 12 % (20-50) L 03/03/17 06:29 Monocytes 6 % (2-10) 03/03/17 06:29 Eosinophils 2 % (0-5) 03/01/17 12:26 Basophils 1 % (0-3) 03/01/17 12:26 Metamyelocytes 1 % (0-0) H 03/02/17 05:36 Hypochromia 1+ 03/03/17 06:29 Platelet Estimate DECREASED PLATELETS (NORMAL) 03/03/17 06:29 Platelet Morphology NORMAL (NORMAL) 03/02/17 05:36 Polychromasia 1+ 03/03/17 06:29 Poikilocytosis 1+ 03/03/17 06:29 Anisocytosis 1+ 03/03/17 06:29 RBC Morph Micro Appear ABNORMAL (NORMAL) 03/02/17 05:36 PT 25.3 SECONDS (9.5-11.5) H 03/02/17 05:36 INR 2.32 (0.5-1.4) H 03/02/17 05:36 PTT (Actin FS) 90.5 SECONDS (26.0-38.0) H* 03/02/17 05:36 Sodium 128 mEq/L (136-145) L 03/03/17 06:29 Potassium 3.9 mEq/L (3.5-5.1) 03/03/17 06:29 Chloride 100 mEq/L (98-107) 03/03/17 06:29 Carbon Dioxide 23.1 mEq/L (21.0-31.0) 03/03/17 06:29 Anion Gap 8.8 (7.0-16.0) 03/03/17 06:29 BUN 34 mg/dL (7-25) H 03/03/17 06:29 Creatinine 4.3 mg/dL (0.6-1.2) H* 03/03/17 06:29 Est GFR ( Amer) 13.1 ml/min (>90) 03/03/17 06:29 Est GFR (Non-Af Amer) 10.9 ml/min 03/03/17 06:29 BUN/Creatinine Ratio 7.9 03/03/17 06:29 Glucose 107 mg/dL (70-105) H 03/03/17 06:29 POC Glucose 96 MG/DL (70 - 105) 02/28/17 12:24 Hemoglobin A1c % 4.6 % (4.0-6.0) 02/27/17 19:30 Whole Bld Lactic Acid 1.39 mmol/L (0.60-1.99) 03/01/17 15:56 Calcium 8.2 mg/dL (8.6-10.3) L 03/03/17 06:29 Phosphorus 4.1 mg/dL (2.5-5.0) 03/03/17 06:29 Magnesium 2.2 mg/dL (1.9-2.7) 03/03/17 06:29 Total Bilirubin 3.2 mg/dL (0.3-1.0) H 03/02/17 05:36 Direct Bilirubin 1.98 mg/dL (0.0-0.2) H 03/02/17 05:36 AST 25 U/L (13-39) 03/02/17 05:36 ALT 4 U/L (7-52) L 03/02/17 05:36 Alkaline Phosphatase 145 U/L (34-104) H 03/02/17 05:36 Total Protein 5.2 gm/dL (6.0-8.3) L 03/02/17 05:36 Albumin 2.2 gm/dL (3.7-5.3) L 03/02/17 05:36 Globulin 3.0 gm/dL 03/02/17 05:36 Albumin/Globulin Ratio 0.7 (1.0-1.8) L 03/02/17 05:36 Triglycerides 112 mg/dL (<150) 03/03/17 06:29 Gentamicin Peak 8.8 ug/ml (4.0-8.0) 03/01/17 10:00 Gentamicin Trough ug/ml (0.2-2.0) 03/01/17 08:30 Serum Ketones NEGATIVE (NEGATIVE) 02/27/17 19:30 Hepatitis A IgM Ab Negative (Negative) 03/02/17 05:36 Hep Bs Antigen Negative (Negative) 03/02/17 05:36 Hep B Core IgM Ab Negative (Negative) 03/02/17 05:36 Hepatitis C Antibody <0.1 s/co ratio (0.0-0.9) 03/02/17 05:36 Blood Type A POSITIVE 03/03/17 09:10 Antibody Screen NEGATIVE 03/03/17 09:10 Crossmatch See Detail 03/03/17 09:10 - Physical Exam Vitals and I&O: Vital Signs Temp 96.8 F 03/03/17 04:00 Pulse 94 03/03/17 09:15 Resp 13 03/03/17 09:15 BP 107/54 03/03/17 07:30 Pulse Ox 100 03/03/17 09:15 Intake & Output 03/02/17 03/03/17 03/03/17 18:59 06:59 18:59 Intake Total 572.218 390 5108.812 Output Total 75 Balance 572.532 581 7644.812 Weight (lbs) 124.284 kg Intake: Intake, IV Amount 572.816 504 3817.812 Albumin 25% 25gm/100mL 25 50 gm In 100 ml @ 50 mls/hr IV X1 ONE Rx#:[id number] Amino Acids 3% / 895 Electrolytes 1,000 ml @ 60 mls/hr IV .[id number] [facility] Rx#:[id number] Diltiazem 125 mg In 16.667 Dextrose 5% 100 ml @ 10 MG/HR 10 mls/hr IV TITR [facility] Rx#:[id number] Meropenem 500 mg In 100 100 Sodium Chloride 0.9% 100 ml @ 100 mls/hr IV Q12H [facility] Rx#:[id number] Norepinephrine 8 mg In 250.0 243.812 Dextrose 5% 250 ml @ 0 MCG/MIN IV TITR PRN Rx#: [id number] Norepinephrine 8 mg In 105.438 Dextrose 5% 250 ml @ 0 mls/hr IV PRN [facility] Rx#: [id number] Tigecycline 50 mg In 100 100 Sodium Chloride 0.9% 100 ml @ 100 mls/hr IV Q12H [facility] Rx#:[id number] Oral 60 Output: Drainage 75 Left Lower Abdomen 50 Right Lower Abdomen 25 Urine 0 Other: # Bowel Movements 0 Stool Characteristics Soft Liquid Active Medications: Current Medications Albuterol Sulfate (Albuterol 2.5mg/3ml Neb Ud) 2.5 mg HHN Q2H PRN PRN Reason: Shortness of Breath Stop: 04/29/17 03:59 Ascorbic Acid (Vitamin C) 500 mg PO DAILY [facility] Stop: 04/29/17 08:59 Last Admin: 03/02/17 16:59 Dose: Not Given Cholecalciferol (Vitamin D3) 2,000 iu PO DAILY [facility] Stop: 04/29/17 08:59 Last Admin: 03/02/17 16:59 Dose: Not Given Diphenhydramine HCl (Benadryl) 25 mg PO Q6H PRN PRN Reason: Itching Stop: 04/29/17 03:39 Escitalopram Oxalate (Lexapro) 10 mg PO DAILY [facility] PRN Reason: Protocol Stop: 04/29/17 08:59 Last Admin: 03/02/17 16:59 Dose: Not Given Famotidine (Pepcid) 20 mg IVP DAILY [facility] Stop: 05/01/17 08:59 Last Admin: 03/03/17 10:28 Dose: 20 mg Fludrocortisone Acetate (Florinef) 0.1 mg PO BID [facility] Stop: 04/29/17 08:59 Last Admin: 03/02/17 16:58 Dose: Not Given Diltiazem HCl 125 mg/ Dextrose 125 mls @ 10 mls/hr IV TITR [facility]; 10 MG/HR PRN Reason: Protocol Stop: 04/29/17 04:14 Last Titration: 03/02/17 09:20 Dose: 0 mg/hr, 0 mls/hr Tigecycline 50 mg/ Sodium (Chloride) 100 mls @ 100 mls/hr IV Q12H [facility] Stop: 04/30/17 11:29 Last Infusion: 03/03/17 00:32 Dose: Infused Meropenem 500 mg/ Sodium (Chloride) 100 mls @ 100 mls/hr IV Q12H [facility] Stop: 04/30/17 11:44 Last Infusion: 03/03/17 01:30 Dose: Infused Amino Acids/Electrolytes (Procalamine) 1,000 mls @ 60 mls/hr IV .[id number] [facility] Stop: 03/03/17 16:00 Last Admin: 03/03/17 10:29 Dose: 60 mls/hr Norepinephrine Bitartrate 8 mg (/ Dextrose) 250 mls @ 0 mls/hr IV TITR PRN; Protocol; 0 MCG/MIN PRN Reason: BP MAINTENANCE (PER PROTOCOL) Stop: 05/01/17 14:16 Last Admin: 03/03/17 10:35 Dose: 4 mcg/min, 7.5 mls/hr Multivitamins/Minerals 10 ml/Amino Acids/Electrolytes/ Fat Emulsion Intravenous / Dextrose 1,440 mls @ 60 mls/hr IV .Q24H [facility] Stop: 05/02/17 15:59 Lactobacillus Rhamnosus (Culturelle) 1 each PO DAILY [facility] Stop: 05/01/17 08:59 Last Admin: 03/02/17 17:00 Dose: Not Given Metoprolol Tartrate (Lopressor) 50 mg PO Q12HR [facility] Stop: 04/29/17 08:59 Last Admin: 03/02/17 21:03 Dose: Not Given Miconazole Nitrate (Miconazole 2% Cream) 1 appl VG BID [facility] Stop: 03/07/17 08:59 Last Admin: 03/03/17 10:28 Dose: 1 appl Miscellaneous (Clinical Monitoring) 1 ea MC DAILY PRN PRN Reason: RENAL Stop: 04/29/17 10:50 Miscellaneous (Vte Chemical Prophylaxis Screen/ Admission) 1 ea MC PRN PRN PRN Reason: PROTOCOL Stop: 04/29/17 15:40 Miscellaneous (Probiotic Screen) 1 ea MC PRN PRN PRN Reason: PROTOCOL Stop: 04/30/17 10:56 Miscellaneous (Tpn Per Pharmacy) 1 ea MC PRN PRN PRN Reason: PROTOCOL Stop: 04/30/17 18:13 Morphine Sulfate (Morphine) 2 mg IVP Q4HR PRN PRN Reason: Pain (Moderate) Stop: 04/28/17 23:23 Last Admin: 03/01/17 03:00 Dose: 2 mg Zinc Sulfate (Zinc Sulfate) 220 mg PO DAILY [facility] Stop: 04/29/17 08:59 Last Admin: 03/02/17 16:55 Dose: Not Given General: No acute distress HEENT: Atraumatic, Mucous membr. moist/pink Neck: Supple, +2 carotid pulse wo bruit Cardiovascular: Regular rate, Normal S1, Normal S2 Lungs: Other (few rhonchi) Abdomen: Obese, Other (multiple abd wounds) Extremities: Other (ecchymosis, hematomas, petecchiae), no Edema Neurological: Sensation intact, Other (stuporous) Skin: Rash, Breakdown (multiple blisters), Other Psych/Mental Status: Mood NL Assessment/Plan - Assessment Assessment: ESRD on HD Acute on chronic nonhealing abdominal wounds status post debridement Severe malnutrition Obesity hypoventilation syndrome Morbid obesity Type 2 diabetes mellitus Essential hypertension Anemia of chronic kidney disease Chronic atrial fibrillation Coronary artery disease 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 - Plan Plan: cont current treatment transfuse PRBC Nutritional Asmnt/Malnutr-PDOC - Dietary Evaluation Malnutrition Findings (Please click <Entered> for more info): Nutritional Asmnt/Malnutrition Start: 02/28/17 14: 25 Text: Status: Complete Freq: Document 02/28/17 14:32 GSUN (Rec: 02/28/17 14:52 [email or web address] [email or web address]) Nutritional Asmnt/Malnutrition Patient General Information Nutritional Screening High Risk Screening Diagnosis Infectured multiple abdominal wound, sepsis, hypotension Pertinent Medical Hx/Surgical Hx DM, end stage renal failure, obesity, multiple abdominal wound, anemia Subjective Information 71 [address] consult for wounds/calciphylaxis. Pt was lethargic during visit, spoke to at bedside. Briefly explained renal diet, agreeable to plan, not suitble for extensive edu at this time. Pt appeared obese. Pt reported UBW 250lb measured 1 month ago, pt is unsure of dry weight at dialysis center. Pt reported has gradually lost weight 80lb over the past year due to poor appetite and hospitalizations. RD recommended oral supplements, pt denied, stating she has tried and threw up. Current Diet Order/ Nutrition Support Renal, 1800kcal Pertinent Medications Vitamin C, Vitamin D3, D5-0. 45ns, Pepcid, Novolog, Culturelle, Morphine, Zinc Sulfate Pertinent Labs 02/28: BUN 38H, creatinine 5H, phosphorus 5.4H Nutritional Hx/Data Height 1.63 m Height (Calculated Centimeters) 162.6 Current Weight (lbs) 113.398 kg Weight (Calculated Kilograms) 113.4 Weight (Calculated Grams) 820432.1 [place] Body Weight 120 Recent Weight Change Yes Weight Status Morbidly Obese GI Symptoms Skin Integrity/Comment: Bilateral lower extremities pitting 3+. Abdominal wounds/ calciphylaxis Estimated Nutritional Goals BEE in Kcals: Adj wt of IBW Calories/Kcals/Kg AdjBW 152.5lb/69.3kg (adjsuted to UBW) Kcals Calculated 2079-2426kcal (30-35kcal/kg) Protein: Adj wt of IBW Protein Calculated 90-104g (1.2-1.5/gkg) Fluid: ml 2079-2426ml (1ml/kcal) Nutritional Problem 3. Problem Problem Malnutrition related to Etiology unknown etiology, energy imbalance aeb Signs/Symptoms: BMI >40 2. Problem Problem Increased kcal and prot needs related to Etiology hypermetabolic state aeb Signs/Symptoms: on HD, sepsis 1. Problem Problem Impaired nutrient utilization related to Etiology end stage renal failure aeb Signs/Symptoms: on HD, BUN 38H, creatinine 5H, phosphorus 5.4H Malnutrition Related to Morbid Obesity Malnutrition related to morbid obesity BMI> or equal to 40 Query Text:(Any 1 Criteria met) Malnutrition related to morbid obesity Yes Intervention/Recommendation Comments 1. Recommend renal diet. Briefly explained renal diet, pt is agreeable to plan. Encourage PO intake. 2. Recommend removing " 1800kcal" restriction as pt is in hypermetabolic state ( sepsis, HD) and obese, requiring more than 1800kcal, weight loss not favorable at this time. 3. Pt reported poor appetite many months, RD recommend oral supplements, pt declined. Expected Outcomes/Goals Expected Outcomes/Goals 1. PO intake to meet at least 75% of estimated nutritional needs.
[2017-03-03] MEDS: MULTIVITAMIN IV SCH (19:00)
[2017-03-03] MEDS: AMINO ACIDS IV SCH (19:00)
[2017-03-03] MEDS: [UNRECOGNIZED DRUG - OTHER] IV SCH (19:00)
[2017-03-03] MEDS: INTRALIPIDS IV SCH (19:00)
[2017-03-03] MEDS: ELECTROLYTES IV SCH (19:00)
[2017-03-03] MEDS: Venelex 60gm Tube TP SCH (19:58)
[2017-03-03] MEDS: Lactobacillus Rhamnosus 10 Billion CFU Capsule PO SCH (19:59)
[2017-03-03] MEDS: INSULIN ASPART SLIDING SCALE 100 UNITS/ML UNIT SUBQ SCH (23:59)
[2017-03-04 05:43] LABS: % BASOPHILS 0.1 % (0.0-2.0); % EOSINOPHILS 1.1 % (0.0-5.0); % LYMPHOCYTES 11.2 % (20.0-50.0); % MONOCYTES 5.3 % (2.0-10.0); % NEUTROPHILS 82.3 % (40.0-80.0); MEAN CELL VOLUME 92.2 fl (81-100); MEAN CORPUSCULAR HGB CONC 33.7 pg (28.0-36.0); MEAN PLATELET VOLUME 7.9 fl; NEUTROPHILE ABSOLUTE 13.6 Th/cmm (1.8-8.0); PLATELET COUNT 33 Th/cmm (150-400); RED BLOOD COUNT 2.49 Mil/cmm (3.80-5.20)
[2017-03-04 05:49] LABS: ANION GAP 8.8 (7.0-16.0); BUN/CREATININE RATIO 8.4; CALCIUM SERUM 8.5 mg/dL (8.6-10.3); CARBON DIOXIDE 24.1 mEq/L (21.0-31.0); CREATININE - SERUM 3.7 mg/dL (0.6-1.2); MAGNESIUM 2.1 mg/dL (1.9-2.7); POTASSIUM SERUM 3.9 mEq/L (3.5-5.1)
[2017-03-04 06:23] LABS: WHITE BLOOD COUNT 16.6 Th/cmm (4.8-10.8)
[2017-03-04 06:25] LABS: HEMOGLOBIN 7.7 gm/dL (11.7-16.1)
[2017-03-04] MEDS: INSULIN ASPART SLIDING SCALE 100 UNITS/ML UNIT SUBQ SCH ×2 (07:53→23:20)
[2017-03-04] MEDS: Morphine Sulfate 2 mg/mL 1mL Syr IVP PRN ×2 (08:40→13:50)
--- NOTE | 2017-03-04 09:47 | Diagnostic Imaging Report ---
Exam: Chest portable examination. HISTORY: Infiltrates. Findings: Portable examination of chest at 0912 hours was reviewed. The study demonstrates bilateral interstitial infiltrates with superimposed effusions. Mediastinal structures midline the heart is prominent. Right subclavian catheter terminates in superior vena cava. Right-sided PICC line terminates in right axillary vein. The study is somewhat limited due to patient rotation. There is mild congestion. IMPRESSION: 1. Mild congestion 2. Bilateral interstitial infiltrate superimposed effusions follow-up dictation recommended
--- NOTE | 2017-03-04 11:06 | General Progress Note ---
Subjective - Review of Systems Service Date: 03/04/17 Events since last encounter: wound vac in place more necrotic wounds need debridement, lower and upper extremities Objective - Results Result Diagrams: 03/04/17 05:20 03/04/17 05:20 Recent Labs: Laboratory Last Values WBC 16.6 Th/cmm (4.8-10.8) H 03/04/17 05:20 RBC 2.49 Mil/cmm (3.80-5.20) L 03/04/17 05:20 Hgb 7.7 gm/dL (11.7-16.1) L* 03/04/17 05:20 Hct 23.0 % (35.0-45.0) L* 03/04/17 05:20 MCV 92.2 fl (81-100) 03/04/17 05:20 MCH 31.0 pg (27.0-31.0) 03/04/17 05:20 MCHC Differential 33.7 pg (28.0-36.0) 03/04/17 05:20 RDW 17.0 % (11.5-20.0) 03/04/17 05:20 Plt Count 33 Th/cmm (150-400) L 03/04/17 05:20 MPV 7.9 fl 03/04/17 05:20 Neutrophils % 82.3 % (40.0-80.0) H 03/04/17 05:20 Band Neutrophils % 5 % (0-10) 03/03/17 06:29 Lymphocytes % 11.2 % (20.0-50.0) L 03/04/17 05:20 Monocytes % 5.3 % (2.0-10.0) 03/04/17 05:20 Eosinophils % 1.1 % (0.0-5.0) 03/04/17 05:20 Basophils % 0.1 % (0.0-2.0) 03/04/17 05:20 Neutrophils (Manual) 77 % (40-80) 03/03/17 06:29 Lymphocytes 12 % (20-50) L 03/03/17 06:29 Monocytes 6 % (2-10) 03/03/17 06:29 Eosinophils 2 % (0-5) 03/01/17 12:26 Basophils 1 % (0-3) 03/01/17 12:26 Metamyelocytes 1 % (0-0) H 03/02/17 05:36 Hypochromia 1+ 03/03/17 06:29 Platelet Estimate DECREASED PLATELETS (NORMAL) 03/03/17 06:29 Platelet Morphology NORMAL (NORMAL) 03/02/17 05:36 Polychromasia 1+ 03/03/17 06:29 Poikilocytosis 1+ 03/03/17 06:29 Anisocytosis 1+ 03/03/17 06:29 RBC Morph Micro Appear ABNORMAL (NORMAL) 03/02/17 05:36 PT 25.3 SECONDS (9.5-11.5) H 03/02/17 05:36 INR 2.32 (0.5-1.4) H 03/02/17 05:36 PTT (Actin FS) 90.5 SECONDS (26.0-38.0) H* 03/02/17 05:36 Sodium 131 mEq/L (136-145) L 03/04/17 05:20 Potassium 3.9 mEq/L (3.5-5.1) 03/04/17 05:20 Chloride 102 mEq/L (98-107) 03/04/17 05:20 Carbon Dioxide 24.1 mEq/L (21.0-31.0) 03/04/17 05:20 Anion Gap 8.8 (7.0-16.0) 03/04/17 05:20 BUN 31 mg/dL (7-25) H 03/04/17 05:20 Creatinine 3.7 mg/dL (0.6-1.2) H 03/04/17 05:20 Est GFR ( Amer) 15.6 ml/min (>90) 03/04/17 05:20 Est GFR (Non-Af Amer) 12.9 ml/min 03/04/17 05:20 BUN/Creatinine Ratio 8.4 03/04/17 05:20 Glucose 140 mg/dL (70-105) H 03/04/17 05:20 POC Glucose 85 MG/DL (70 - 105) 03/04/17 05:35 Hemoglobin A1c % 4.6 % (4.0-6.0) 02/27/17 19:30 Whole Bld Lactic Acid 1.39 mmol/L (0.60-1.99) 03/01/17 15:56 Calcium 8.5 mg/dL (8.6-10.3) L 03/04/17 05:20 Phosphorus 4.0 mg/dL (2.5-5.0) 03/04/17 05:20 Magnesium 2.1 mg/dL (1.9-2.7) 03/04/17 05:20 Total Bilirubin 3.2 mg/dL (0.3-1.0) H 03/02/17 05:36 Direct Bilirubin 1.98 mg/dL (0.0-0.2) H 03/02/17 05:36 AST 25 U/L (13-39) 03/02/17 05:36 ALT 4 U/L (7-52) L 03/02/17 05:36 Alkaline Phosphatase 145 U/L (34-104) H 03/02/17 05:36 Total Protein 5.2 gm/dL (6.0-8.3) L 03/02/17 05:36 Albumin 2.2 gm/dL (3.7-5.3) L 03/02/17 05:36 Globulin 3.0 gm/dL 03/02/17 05:36 Albumin/Globulin Ratio 0.7 (1.0-1.8) L 03/02/17 05:36 Prealbumin <3 mg/dL (10-36) L 03/03/17 06:29 Triglycerides 112 mg/dL (<150) 03/03/17 06:29 Gentamicin Peak 8.8 ug/ml (4.0-8.0) 03/01/17 10:00 Gentamicin Trough ug/ml (0.2-2.0) 03/01/17 08:30 Serum Ketones NEGATIVE (NEGATIVE) 02/27/17 19:30 Hepatitis A IgM Ab Negative (Negative) 03/02/17 05:36 Hep Bs Antigen Negative (Negative) 03/02/17 05:36 Hep B Core IgM Ab Negative (Negative) 03/02/17 05:36 Hepatitis C Antibody <0.1 s/co ratio (0.0-0.9) 03/02/17 05:36 Blood Type A POSITIVE 03/03/17 09:10 Antibody Screen NEGATIVE 03/03/17 09:10 Crossmatch See Detail 03/03/17 09:10 - Physical Exam Vitals and I&O: Vital Signs Temp 97.9 F 03/04/17 04:00 Pulse 90 03/04/17 07:00 Resp 14 03/04/17 06:58 BP 104/65 03/04/17 07:00 Pulse Ox 104 03/04/17 06:58 Intake & Output 03/03/17 03/04/17 03/04/17 18:59 06:59 18:59 Intake Total 1300.124 820 Output Total 50 Balance 1300.124 770 Weight (lbs) 123.468 kg Intake: Intake, IV Amount 1300.124 100 Albumin 25% 25gm/100mL 25 50 gm In 100 ml @ 50 mls/hr IV X1 [facility] Rx#:[id number] Amino Acids 3% / 895 Electrolytes 1,000 ml @ 60 mls/hr IV .[id number] [facility] Rx#:[id number] Meropenem 500 mg In 100 Sodium Chloride 0.9% 100 ml @ 100 mls/hr IV Q12H [facility] Rx#:[id number] Multivitamin Inj 10 ml In 0 Amino Acids 3% / Electrolytes 700 ml In Intralipids 20% 50 ml In Dextrose 10% 680 ml @ 60 mls/hr IV .Q24H [facility] Rx#: [id number] Norepinephrine 8 mg In 255.124 0 Dextrose 5% 250 ml @ 0 MCG/MIN IV TITR PRN Rx#: [id number] Tigecycline 50 mg In 0 100 Sodium Chloride 0.9% 100 ml @ 100 mls/hr IV Q12H [facility] Rx#:[id number] Oral 0 TPN/PPN 720 Output: Urine 0 Other 50 Other: # Bowel Movements 0 Active Medications: Current Medications Albuterol Sulfate (Albuterol 2.5mg/3ml Neb Ud) 2.5 mg HHN Q2H PRN PRN Reason: Shortness of Breath Stop: 04/29/17 03:59 Ascorbic Acid (Vitamin C) 500 mg PO DAILY [facility] Stop: 04/29/17 08:59 Last Admin: 03/03/17 19:58 Dose: Not Given Cholecalciferol (Vitamin D3) 2,000 iu PO DAILY [facility] Stop: 04/29/17 08:59 Last Admin: 03/03/17 19:58 Dose: Not Given Diphenhydramine HCl (Benadryl) 25 mg PO Q6H PRN PRN Reason: Itching Stop: 04/29/17 03:39 Escitalopram Oxalate (Lexapro) 10 mg PO DAILY [facility] PRN Reason: Protocol Stop: 04/29/17 08:59 Last Admin: 03/03/17 19:58 Dose: Not Given Famotidine (Pepcid) 20 mg IVP DAILY [facility] Stop: 05/01/17 08:59 Last Admin: 03/04/17 08:40 Dose: 20 mg Fludrocortisone Acetate (Florinef) 0.1 mg PO BID [facility] Stop: 04/29/17 08:59 Last Admin: 03/03/17 19:58 Dose: Not Given Diltiazem HCl 125 mg/ Dextrose 125 mls @ 10 mls/hr IV TITR [facility]; 10 MG/HR PRN Reason: Protocol Stop: 04/29/17 04:14 Last Titration: 03/02/17 09:20 Dose: 0 mg/hr, 0 mls/hr Tigecycline 50 mg/ Sodium (Chloride) 100 mls @ 100 mls/hr IV Q12H [facility] Stop: 04/30/17 11:29 Last Admin: 03/04/17 10:53 Dose: 100 mls/hr Meropenem 500 mg/ Sodium (Chloride) 100 mls @ 100 mls/hr IV Q12H [facility] Stop: 04/30/17 11:44 Last Admin: 03/03/17 23:54 Dose: 100 mls/hr Norepinephrine Bitartrate 8 mg (/ Dextrose) 250 mls @ 0 mls/hr IV TITR PRN; Protocol; 0 MCG/MIN PRN Reason: BP MAINTENANCE (PER PROTOCOL) Stop: 05/01/17 14:16 Last Titration: 03/03/17 19:45 Dose: 2 mcg/min, 3.75 mls/hr Multivitamins/Minerals 10 ml/Amino Acids/Electrolytes/ Fat Emulsion Intravenous / Dextrose 1,440 mls @ 60 mls/hr IV .Q24H [facility] Stop: 05/02/17 15:59 Last Infusion: 03/03/17 19:00 Dose: 60 mls/hr Insulin Aspart (Novolog Insulin Sliding Scale) 0 units SUBQ Q6HR [facility] PRN Reason: Protocol Stop: 05/03/17 00:00 Last Admin: 03/04/17 07:53 Dose: Not Given Lactobacillus Rhamnosus (Culturelle) 1 each PO DAILY [facility] Stop: 05/01/17 08:59 Last Admin: 03/03/17 19:59 Dose: Not Given Metoprolol Tartrate (Lopressor) 50 mg PO Q12HR [facility] Stop: 04/29/17 08:59 Last Admin: 03/03/17 21:56 Dose: Not Given Miconazole Nitrate (Miconazole 2% Cream) 1 appl VG BID [facility] Stop: 03/07/17 08:59 Last Admin: 03/03/17 20:02 Dose: 1 appl Miscellaneous (Clinical Monitoring) 1 ea MC DAILY PRN PRN Reason: RENAL Stop: 04/29/17 10:50 Miscellaneous (Vte Chemical Prophylaxis Screen/ Admission) 1 ea MC PRN PRN PRN Reason: PROTOCOL Stop: 04/29/17 15:40 Miscellaneous (Probiotic Screen) 1 ea MC PRN PRN PRN Reason: PROTOCOL Stop: 04/30/17 10:56 Miscellaneous (Tpn Per Pharmacy) 1 ea MC PRN PRN PRN Reason: PROTOCOL Stop: 04/30/17 18:13 Morphine Sulfate (Morphine) 2 mg IVP Q4HR PRN PRN Reason: Pain (Moderate) Stop: 04/28/17 23:23 Last Admin: 03/04/17 08:40 Dose: 2 mg Zinc Sulfate (Zinc Sulfate) 220 mg PO DAILY [facility] Stop: 04/29/17 08:59 Last Admin: 03/03/17 20:00 Dose: Not Given General: No acute distress HEENT: Atraumatic, Mucous membr. moist/pink Neck: Supple, +2 carotid pulse wo bruit Cardiovascular: Regular rate, Normal S1, Normal S2 Lungs: Other (few rhonchi) Abdomen: Obese, Other (multiple abd wounds) Extremities: Other (ecchymosis, hematomas, petecchiae), no Edema Neurological: Sensation intact, Other (stuporous) Skin: Rash, Breakdown (multiple blisters), Other Psych/Mental Status: Mood NL Nutritional Asmnt/Malnutr-PDOC - Dietary Evaluation Malnutrition Findings (Please click <Entered> for more info): Nutritional Asmnt/Malnutrition Start: 02/28/17 14: 25 Text: Status: Complete Freq: Document 02/28/17 14:32 GSUN (Rec: 02/28/17 14:52 [email or web address]) Nutritional Asmnt/Malnutrition Patient General Information Nutritional Screening High Risk Screening Diagnosis Infectured multiple abdominal wound, sepsis, hypotension Pertinent Medical Hx/Surgical Hx DM, end stage renal failure, obesity, multiple abdominal wound, anemia Subjective Information 71 [address] consult for wounds/calciphylaxis. Pt was lethargic during visit, spoke to at bedside. Briefly explained renal diet, agreeable to plan, not suitble for extensive edu at this time. Pt appeared obese. Pt reported UBW 250lb measured 1 month ago, pt is unsure of dry weight at dialysis center. Pt reported has gradually lost weight 80lb over the past year due to poor appetite and hospitalizations. RD recommended oral supplements, pt denied, stating she has tried and threw up. Current Diet Order/ Nutrition Support Renal, 1800kcal Pertinent Medications Vitamin C, Vitamin D3, D5-0. 45ns, Pepcid, Novolog, Culturelle, Morphine, Zinc Sulfate Pertinent Labs 02/28: BUN 38H, creatinine 5H, phosphorus 5.4H Nutritional Hx/Data Height 1.63 m Height (Calculated Centimeters) 162.6 Current Weight (lbs) 113.398 kg Weight (Calculated Kilograms) 113.4 Weight (Calculated Grams) 728632.1 [place] Body Weight 120 Recent Weight Change Yes Weight Status Morbidly Obese GI Symptoms Skin Integrity/Comment: Bilateral lower extremities pitting 3+. Abdominal wounds/ calciphylaxis Estimated Nutritional Goals BEE in Kcals: Adj wt of IBW Calories/Kcals/Kg AdjBW 152.5lb/69.3kg (adjsuted to UBW) Kcals Calculated 2079-2426kcal (30-35kcal/kg) Protein: Adj wt of IBW Protein Calculated 90-104g (1.2-1.5/gkg) Fluid: ml 2079-2426ml (1ml/kcal) Nutritional Problem 3. Problem Problem Malnutrition related to Etiology unknown etiology, energy imbalance aeb Signs/Symptoms: BMI >40 2. Problem Problem Increased kcal and prot needs related to Etiology hypermetabolic state aeb Signs/Symptoms: on HD, sepsis 1. Problem Problem Impaired nutrient utilization related to Etiology end stage renal failure aeb Signs/Symptoms: on HD, BUN 38H, creatinine 5H, phosphorus 5.4H Malnutrition Related to Morbid Obesity Malnutrition related to morbid obesity BMI> or equal to 40 Query Text:(Any 1 Criteria met) Malnutrition related to morbid obesity Yes Intervention/Recommendation Comments 1. Recommend renal diet. Briefly explained renal diet, pt is agreeable to plan. Encourage PO intake. 2. Recommend removing " 1800kcal" restriction as pt is in hypermetabolic state ( sepsis, HD) and obese, requiring more than 1800kcal, weight loss not favorable at this time. 3. Pt reported poor appetite many months, RD recommend oral supplements, pt declined. Expected Outcomes/Goals Expected Outcomes/Goals 1. PO intake to meet at least 75% of estimated nutritional needs.
--- NOTE | 2017-03-04 12:29 | General Progress Note ---
Subjective - Review of Systems Service Date: 03/04/17 Subjective: stuporous, comfortable Objective - Results Result Diagrams: 03/04/17 05:20 03/04/17 05:20 Recent Labs: Laboratory Last Values WBC 16.6 Th/cmm (4.8-10.8) H 03/04/17 05:20 RBC 2.49 Mil/cmm (3.80-5.20) L 03/04/17 05:20 Hgb 7.7 gm/dL (11.7-16.1) L* 03/04/17 05:20 Hct 23.0 % (35.0-45.0) L* 03/04/17 05:20 MCV 92.2 fl (81-100) 03/04/17 05:20 MCH 31.0 pg (27.0-31.0) 03/04/17 05:20 MCHC Differential 33.7 pg (28.0-36.0) 03/04/17 05:20 RDW 17.0 % (11.5-20.0) 03/04/17 05:20 Plt Count 33 Th/cmm (150-400) L 03/04/17 05:20 MPV 7.9 fl 03/04/17 05:20 Neutrophils % 82.3 % (40.0-80.0) H 03/04/17 05:20 Band Neutrophils % 5 % (0-10) 03/03/17 06:29 Lymphocytes % 11.2 % (20.0-50.0) L 03/04/17 05:20 Monocytes % 5.3 % (2.0-10.0) 03/04/17 05:20 Eosinophils % 1.1 % (0.0-5.0) 03/04/17 05:20 Basophils % 0.1 % (0.0-2.0) 03/04/17 05:20 Neutrophils (Manual) 77 % (40-80) 03/03/17 06:29 Lymphocytes 12 % (20-50) L 03/03/17 06:29 Monocytes 6 % (2-10) 03/03/17 06:29 Eosinophils 2 % (0-5) 03/01/17 12:26 Basophils 1 % (0-3) 03/01/17 12:26 Metamyelocytes 1 % (0-0) H 03/02/17 05:36 Hypochromia 1+ 03/03/17 06:29 Platelet Estimate DECREASED PLATELETS (NORMAL) 03/03/17 06:29 Platelet Morphology NORMAL (NORMAL) 03/02/17 05:36 Polychromasia 1+ 03/03/17 06:29 Poikilocytosis 1+ 03/03/17 06:29 Anisocytosis 1+ 03/03/17 06:29 RBC Morph Micro Appear ABNORMAL (NORMAL) 03/02/17 05:36 PT 25.3 SECONDS (9.5-11.5) H 03/02/17 05:36 INR 2.32 (0.5-1.4) H 03/02/17 05:36 PTT (Actin FS) 90.5 SECONDS (26.0-38.0) H* 03/02/17 05:36 Sodium 131 mEq/L (136-145) L 03/04/17 05:20 Potassium 3.9 mEq/L (3.5-5.1) 03/04/17 05:20 Chloride 102 mEq/L (98-107) 03/04/17 05:20 Carbon Dioxide 24.1 mEq/L (21.0-31.0) 03/04/17 05:20 Anion Gap 8.8 (7.0-16.0) 03/04/17 05:20 BUN 31 mg/dL (7-25) H 03/04/17 05:20 Creatinine 3.7 mg/dL (0.6-1.2) H 03/04/17 05:20 Est GFR ( Amer) 15.6 ml/min (>90) 03/04/17 05:20 Est GFR (Non-Af Amer) 12.9 ml/min 03/04/17 05:20 BUN/Creatinine Ratio 8.4 03/04/17 05:20 Glucose 140 mg/dL (70-105) H 03/04/17 05:20 POC Glucose 85 MG/DL (70 - 105) 03/04/17 05:35 Hemoglobin A1c % 4.6 % (4.0-6.0) 02/27/17 19:30 Whole Bld Lactic Acid 1.39 mmol/L (0.60-1.99) 03/01/17 15:56 Calcium 8.5 mg/dL (8.6-10.3) L 03/04/17 05:20 Phosphorus 4.0 mg/dL (2.5-5.0) 03/04/17 05:20 Magnesium 2.1 mg/dL (1.9-2.7) 03/04/17 05:20 Total Bilirubin 3.2 mg/dL (0.3-1.0) H 03/02/17 05:36 Direct Bilirubin 1.98 mg/dL (0.0-0.2) H 03/02/17 05:36 AST 25 U/L (13-39) 03/02/17 05:36 ALT 4 U/L (7-52) L 03/02/17 05:36 Alkaline Phosphatase 145 U/L (34-104) H 03/02/17 05:36 Total Protein 5.2 gm/dL (6.0-8.3) L 03/02/17 05:36 Albumin 2.2 gm/dL (3.7-5.3) L 03/02/17 05:36 Globulin 3.0 gm/dL 03/02/17 05:36 Albumin/Globulin Ratio 0.7 (1.0-1.8) L 03/02/17 05:36 Prealbumin <3 mg/dL (10-36) L 03/03/17 06:29 Triglycerides 112 mg/dL (<150) 03/03/17 06:29 Gentamicin Peak 8.8 ug/ml (4.0-8.0) 03/01/17 10:00 Gentamicin Trough ug/ml (0.2-2.0) 03/01/17 08:30 Serum Ketones NEGATIVE (NEGATIVE) 02/27/17 19:30 Hepatitis A IgM Ab Negative (Negative) 03/02/17 05:36 Hep Bs Antigen Negative (Negative) 03/02/17 05:36 Hep B Core IgM Ab Negative (Negative) 03/02/17 05:36 Hepatitis C Antibody <0.1 s/co ratio (0.0-0.9) 03/02/17 05:36 Blood Type A POSITIVE 03/03/17 09:10 Antibody Screen NEGATIVE 03/03/17 09:10 Crossmatch See Detail 03/03/17 09:10 - Physical Exam Vitals and I&O: Vital Signs Temp 97.9 F 03/04/17 04:00 Pulse 90 03/04/17 07:00 Resp 14 03/04/17 06:58 BP 104/65 03/04/17 07:00 Pulse Ox 104 03/04/17 06:58 Intake & Output 03/03/17 03/04/17 03/04/17 18:59 06:59 18:59 Intake Total 1300.124 820 Output Total 50 Balance 1300.124 770 Weight (lbs) 123.468 kg Intake: Intake, IV Amount 1300.124 100 Albumin 25% 25gm/100mL 25 50 gm In 100 ml @ 50 mls/hr IV X1 ONE Rx#:[id number] Amino Acids 3% / 895 Electrolytes 1,000 ml @ 60 mls/hr IV .[id number] [facility] Rx#:[id number] Meropenem 500 mg In 100 Sodium Chloride 0.9% 100 ml @ 100 mls/hr IV Q12H [facility] Rx#:[id number] Multivitamin Inj 10 ml In 0 Amino Acids 3% / Electrolytes 700 ml In Intralipids 20% 50 ml In Dextrose 10% 680 ml @ 60 mls/hr IV .Q24H [facility] Rx#: [id number] Norepinephrine 8 mg In 255.124 0 Dextrose 5% 250 ml @ 0 MCG/MIN IV TITR PRN Rx#: [id number] Tigecycline 50 mg In 0 100 Sodium Chloride 0.9% 100 ml @ 100 mls/hr IV Q12H [facility] Rx#:[id number] Oral 0 TPN/PPN 720 Output: Urine 0 Other 50 Other: # Bowel Movements 0 Active Medications: Current Medications Albuterol Sulfate (Albuterol 2.5mg/3ml Neb Ud) 2.5 mg HHN Q2H PRN PRN Reason: Shortness of Breath Stop: 04/29/17 03:59 Ascorbic Acid (Vitamin C) 500 mg PO DAILY [facility] Stop: 04/29/17 08:59 Last Admin: 03/03/17 19:58 Dose: Not Given Cholecalciferol (Vitamin D3) 2,000 iu PO DAILY [facility] Stop: 04/29/17 08:59 Last Admin: 03/03/17 19:58 Dose: Not Given Diphenhydramine HCl (Benadryl) 25 mg PO Q6H PRN PRN Reason: Itching Stop: 04/29/17 03:39 Escitalopram Oxalate (Lexapro) 10 mg PO DAILY [facility] PRN Reason: Protocol Stop: 04/29/17 08:59 Last Admin: 03/03/17 19:58 Dose: Not Given Famotidine (Pepcid) 20 mg IVP DAILY [facility] Stop: 05/01/17 08:59 Last Admin: 03/04/17 08:40 Dose: 20 mg Fludrocortisone Acetate (Florinef) 0.1 mg PO BID [facility] Stop: 04/29/17 08:59 Last Admin: 03/03/17 19:58 Dose: Not Given Diltiazem HCl 125 mg/ Dextrose 125 mls @ 10 mls/hr IV TITR [facility]; 10 MG/HR PRN Reason: Protocol Stop: 04/29/17 04:14 Last Titration: 03/02/17 09:20 Dose: 0 mg/hr, 0 mls/hr Tigecycline 50 mg/ Sodium (Chloride) 100 mls @ 100 mls/hr IV Q12H [facility] Stop: 04/30/17 11:29 Last Admin: 03/04/17 10:53 Dose: 100 mls/hr Meropenem 500 mg/ Sodium (Chloride) 100 mls @ 100 mls/hr IV Q12H [facility] Stop: 04/30/17 11:44 Last Admin: 03/03/17 23:54 Dose: 100 mls/hr Norepinephrine Bitartrate 8 mg (/ Dextrose) 250 mls @ 0 mls/hr IV TITR PRN; Protocol; 0 MCG/MIN PRN Reason: BP MAINTENANCE (PER PROTOCOL) Stop: 05/01/17 14:16 Last Titration: 03/03/17 19:45 Dose: 2 mcg/min, 3.75 mls/hr Multivitamins/Minerals 10 ml/Amino Acids/Electrolytes/ Fat Emulsion Intravenous / Dextrose 1,440 mls @ 60 mls/hr IV .Q24H [facility] Stop: 05/02/17 15:59 Last Infusion: 03/03/17 19:00 Dose: 60 mls/hr Insulin Aspart (Novolog Insulin Sliding Scale) 0 units SUBQ Q6HR [facility] PRN Reason: Protocol Stop: 05/03/17 00:00 Last Admin: 03/04/17 07:53 Dose: Not Given Lactobacillus Rhamnosus (Culturelle) 1 each PO DAILY [facility] Stop: 05/01/17 08:59 Last Admin: 03/03/17 19:59 Dose: Not Given Metoprolol Tartrate (Lopressor) 50 mg PO Q12HR [facility] Stop: 04/29/17 08:59 Last Admin: 03/03/17 21:56 Dose: Not Given Miconazole Nitrate (Miconazole 2% Cream) 1 appl VG BID [facility] Stop: 03/07/17 08:59 Last Admin: 03/03/17 20:02 Dose: 1 appl Miscellaneous (Clinical Monitoring) 1 ea [facility] DAILY PRN PRN Reason: RENAL Stop: 04/29/17 10:50 Miscellaneous (Vte Chemical Prophylaxis Screen/ Admission) 1 ea [facility] PRN PRN PRN Reason: PROTOCOL Stop: 04/29/17 15:40 Miscellaneous (Probiotic Screen) 1 ea PRN PRN PRN Reason: PROTOCOL Stop: 04/30/17 10:56 Miscellaneous (Tpn Per Pharmacy) 1 ea [facility] PRN PRN PRN Reason: PROTOCOL Stop: 04/30/17 18:13 Morphine Sulfate (Morphine) 2 mg IVP Q4HR PRN PRN Reason: Pain (Moderate) Stop: 04/28/17 23:23 Last Admin: 03/04/17 08:40 Dose: 2 mg Zinc Sulfate (Zinc Sulfate) 220 mg PO DAILY [facility] Stop: 04/29/17 08:59 Last Admin: 03/03/17 20:00 Dose: Not Given General: No acute distress HEENT: Atraumatic, Mucous membr. moist/pink Neck: Supple, +2 carotid pulse wo bruit Cardiovascular: Regular rate, Normal S1, Normal S2 Lungs: Other (few rhonchi) Abdomen: Bowel sounds, Soft, Obese, Other (multiple abd wounds) Extremities: Other (ecchymosis, hematomas, petecchiae), no Edema Neurological: Sensation intact, Other (stuporous) Skin: Rash, Breakdown (multiple blisters), Significant lesion (ECCHYMOSIS, HEMATOMAS, CONTUSIONS) Psych/Mental Status: Mood NL Assessment/Plan - Assessment Assessment: ESRD on HD Acute on chronic nonhealing abdominal wounds status post debridement Severe malnutrition Obesity hypoventilation syndrome Morbid obesity Type 2 diabetes mellitus Essential hypertension Anemia of chronic kidney disease Chronic atrial fibrillation Coronary artery disease 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 - Plan Plan: Lab - Result Diagrams 03/01/17 04:30 03/01/17 04:30 Current Medications Albuterol Sulfate (Albuterol 2.5mg/3ml Neb Ud) 2.5 mg HHN Q2H PRN PRN Reason: Shortness of Breath Stop: 04/29/17 03:59 Ascorbic Acid (Vitamin C) 500 mg PO DAILY [facility] Stop: 04/29/17 08:59 Last Admin: 03/01/17 08:51 Dose: Not Given Cholecalciferol (Vitamin D3) 2,000 iu PO DAILY [facility] Stop: 04/29/17 08:59 Last Admin: 03/01/17 08:51 Dose: Not Given Diphenhydramine HCl (Benadryl) 25 mg PO Q6H PRN PRN Reason: Itching Stop: 04/29/17 03:39 Escitalopram Oxalate (Lexapro) 10 mg PO DAILY [facility] PRN Reason: Protocol Stop: 04/29/17 08:59 Last Admin: 03/01/17 08:52 Dose: Not Given Famotidine (Pepcid) 20 mg PO BID [facility] Stop: 04/29/17 08:59 Last Admin: 03/01/17 08:52 Dose: Not Given Fludrocortisone Acetate (Florinef) 0.1 mg PO BID [facility] Stop: 04/29/17 08:59 Last Admin: 03/01/17 08:52 Dose: Not Given Norepinephrine Bitartrate 4 mg (/ Dextrose) 254 mls @ 0 mls/hr IV TITR PRN; Protocol; Per Protocol PRN Reason: BP MAINTENANCE (PER PROTOCOL) Stop: 04/28/17 23:29 Last Admin: 03/01/17 12:31 Dose: 1.5 mcg/min, 5.71 mls/hr Clindamycin Phosphate (Cleocin Pb) 600 mg in 50 mls @ 100 mls/hr IV Q8HR [facility] Stop: 04/29/17 04:59 Last Admin: 03/01/17 06:07 Dose: 100 mls/hr Diltiazem HCl 125 mg/ Dextrose 125 mls @ 10 mls/hr IV TITR [facility]; 10 MG/HR PRN Reason: Protocol Stop: 04/29/17 04:14 Last Admin: 03/01/17 06:47 Dose: 10 mg/hr, 10 mls/hr Gentamicin Sulfate 160 mg/ (Sodium Chloride) 104 mls @ 200 mls/hr IV Q48H [facility] Stop: 04/30/17 08:59 Last Admin: 08/03/17 09:00 Dose: 200 mls/hr Dextrose/Sodium Chloride (D5-0.45ns) 1,000 mls @ 75 mls/hr IV .[id number] [facility] Stop: 04/29/17 13:08 Last Admin: 03/01/17 05:37 Dose: 75 mls/hr Levofloxacin (Levaquin Pb) 250 mg in 50 mls @ 50 mls/hr IV Q48HR [facility] Stop: 04/29/17 16:59 Last Infusion: 02/28/17 18:15 Dose: Infused Lactobacillus Rhamnosus (Culturelle) 1 each PO DAILY [facility] Stop: 04/29/17 08:59 Last Admin: 03/01/17 08:53 Dose: Not Given Lactobacillus Rhamnosus (Culturelle) 1 each PO DAILY [facility] Stop: 05/01/17 08:59 Metoprolol Tartrate (Lopressor) 50 mg PO Q12HR [facility] Stop: 04/29/17 08:59 Last Admin: 03/01/17 08:53 Dose: Not Given Miconazole Nitrate (Miconazole 2% Cream) 1 appl VG BID [facility] Stop: 03/07/17 08:59 Last Admin: 03/01/17 08:53 Dose: 1 appl Miscellaneous (Clinical Monitoring) 1 ea DAILY PRN PRN Reason: RENAL Stop: 04/29/17 10:50 Miscellaneous (Vte Chemical Prophylaxis Screen/ Admission) 1 [facility] PRN PRN PRN Reason: PROTOCOL Stop: 04/29/17 15:40 Miscellaneous (Probiotic Screen) 1 [facility] PRN PRN PRN Reason: PROTOCOL Stop: 04/30/17 10:56 Morphine Sulfate (Morphine) 2 mg IVP Q4HR PRN PRN Reason: Pain (Moderate) Stop: 04/28/17 23:23 Last Admin: 03/01/17 03:00 Dose: 2 mg Phytonadione (Mephyton) 10 mg PO TID [facility] Stop: 03/03/17 13:59 Last Admin: 03/01/17 08:54 Dose: Not Given Sevelamer HCl (Renagel) 800 mg PO TIDWM [facility] Stop: 04/30/17 07:59 Last Admin: 03/01/17 08:50 Dose: Not Given Zinc Sulfate (Zinc Sulfate) 220 mg PO DAILY [facility] Stop: 04/29/17 08:59 Last Admin: 03/01/17 08:54 Dose: Not Given Dialyzed yesterday & tolerated it well Blood pressure supported by levothyroid at 1 mcg/m Will decrease IV fluids due to possible fluid overload just had sharp debridement currently receiving 1 unit prbc, Hgb/Hct improved to 7.7/23 f/u cbc Nutritional Asmnt/Malnutr-PDOC - Dietary Evaluation Malnutrition Findings (Please click <Entered> for more info): Nutritional Asmnt/Malnutrition Start: 02/28/17 14: 25 Text: Status: Complete Freq: Document 02/28/17 14:32 GSUN (Rec: 02/28/17 14:52 [email or web address]) Nutritional Asmnt/Malnutrition Patient General Information Nutritional Screening High Risk Screening Diagnosis Infectured multiple abdominal wound, sepsis, hypotension Pertinent Medical Hx/Surgical Hx DM, end stage renal failure, obesity, multiple abdominal wound, anemia Subjective Information 71 [address] consult for wounds/calciphylaxis. Pt was lethargic during visit, spoke to at bedside. Briefly explained renal diet, agreeable to plan, not suitble for extensive edu at this time. Pt appeared obese. Pt reported UBW 250lb measured 1 month ago, pt is unsure of dry weight at dialysis center. Pt reported has gradually lost weight 80lb over the past year due to poor appetite and hospitalizations. RD recommended oral supplements, pt denied, stating she has tried and threw up. Current Diet Order/ Nutrition Support Renal, 1800kcal Pertinent Medications Vitamin C, Vitamin D3, D5-0. 45ns, Pepcid, Novolog, Culturelle, Morphine, Zinc Sulfate Pertinent Labs 02/28: BUN 38H, creatinine 5H, phosphorus 5.4H Nutritional Hx/Data Height 1.63 m Height (Calculated Centimeters) 162.6 Current Weight (lbs) 113.398 kg Weight (Calculated Kilograms) 113.4 Weight (Calculated Grams) 539341.1 [place] Body Weight 120 Recent Weight Change Yes Weight Status Morbidly Obese GI Symptoms Skin Integrity/Comment: Bilateral lower extremities pitting 3+. Abdominal wounds/ calciphylaxis Estimated Nutritional Goals BEE in Kcals: Adj wt of IBW Calories/Kcals/Kg AdjBW 152.5lb/69.3kg (adjsuted to UBW) Kcals Calculated 2079-2426kcal (30-35kcal/kg) Protein: Adj wt of IBW Protein Calculated 90-104g (1.2-1.5/gkg) Fluid: ml 2079-2426ml (1ml/kcal) Nutritional Problem 3. Problem Problem Malnutrition related to Etiology unknown etiology, energy imbalance aeb Signs/Symptoms: BMI >40 2. Problem Problem Increased kcal and prot needs related to Etiology hypermetabolic state aeb Signs/Symptoms: on HD, sepsis 1. Problem Problem Impaired nutrient utilization related to Etiology end stage renal failure aeb Signs/Symptoms: on HD, BUN 38H, creatinine 5H, phosphorus 5.4H Malnutrition Related to Morbid Obesity Malnutrition related to morbid obesity BMI> or equal to 40 Query Text:(Any 1 Criteria met) Malnutrition related to morbid obesity Yes Intervention/Recommendation Comments 1. Recommend renal diet. Briefly explained renal diet, pt is agreeable to plan. Encourage PO intake. 2. Recommend removing " 1800kcal" restriction as pt is in hypermetabolic state ( sepsis, HD) and obese, requiring more than 1800kcal, weight loss not favorable at this time. 3. Pt reported poor appetite many months, RD recommend oral supplements, pt declined. Expected Outcomes/Goals Expected Outcomes/Goals 1. PO intake to meet at least 75% of estimated nutritional needs.
[2017-03-04] MEDS: MICONAZOLE 2% VG SCH (13:30)
[2017-03-04] MEDS: Lactobacillus Rhamnosus 10 Billion CFU Capsule PO SCH (15:35)
[2017-03-04] MEDS: Venelex 60gm Tube TP SCH (15:35)
[2017-03-04] MEDS: Meropenem 500 MG in Sodium Chloride 0.9% 100 ML IV SCH (15:37)
--- NOTE | 2017-03-04 17:49 | General Progress Note ---
Subjective - Review of Systems Service Date: 03/04/17 Subjective: resting in bed lethargic Objective - Results Result Diagrams: 03/04/17 05:20 03/04/17 05:20 Recent Labs: Laboratory Last Values WBC 16.6 Th/cmm (4.8-10.8) H 03/04/17 05:20 RBC 2.49 Mil/cmm (3.80-5.20) L 03/04/17 05:20 Hgb 7.7 gm/dL (11.7-16.1) L* 03/04/17 05:20 Hct 23.0 % (35.0-45.0) L* 03/04/17 05:20 MCV 92.2 fl (81-100) 03/04/17 05:20 MCH 31.0 pg (27.0-31.0) 03/04/17 05:20 MCHC Differential 33.7 pg (28.0-36.0) 03/04/17 05:20 RDW 17.0 % (11.5-20.0) 03/04/17 05:20 Plt Count 33 Th/cmm (150-400) L 03/04/17 05:20 MPV 7.9 fl 03/04/17 05:20 Neutrophils % 82.3 % (40.0-80.0) H 03/04/17 05:20 Band Neutrophils % 5 % (0-10) 03/03/17 06:29 Lymphocytes % 11.2 % (20.0-50.0) L 03/04/17 05:20 Monocytes % 5.3 % (2.0-10.0) 03/04/17 05:20 Eosinophils % 1.1 % (0.0-5.0) 03/04/17 05:20 Basophils % 0.1 % (0.0-2.0) 03/04/17 05:20 Neutrophils (Manual) 77 % (40-80) 03/03/17 06:29 Lymphocytes 12 % (20-50) L 03/03/17 06:29 Monocytes 6 % (2-10) 03/03/17 06:29 Eosinophils 2 % (0-5) 03/01/17 12:26 Basophils 1 % (0-3) 03/01/17 12:26 Metamyelocytes 1 % (0-0) H 03/02/17 05:36 Hypochromia 1+ 03/03/17 06:29 Platelet Estimate DECREASED PLATELETS (NORMAL) 03/03/17 06:29 Platelet Morphology NORMAL (NORMAL) 03/02/17 05:36 Polychromasia 1+ 03/03/17 06:29 Poikilocytosis 1+ 03/03/17 06:29 Anisocytosis 1+ 03/03/17 06:29 RBC Morph Micro Appear ABNORMAL (NORMAL) 03/02/17 05:36 PT 25.3 SECONDS (9.5-11.5) H 03/02/17 05:36 INR 2.32 (0.5-1.4) H 03/02/17 05:36 PTT (Actin FS) 90.5 SECONDS (26.0-38.0) H* 03/02/17 05:36 Sodium 131 mEq/L (136-145) L 03/04/17 05:20 Potassium 3.9 mEq/L (3.5-5.1) 03/04/17 05:20 Chloride 102 mEq/L (98-107) 03/04/17 05:20 Carbon Dioxide 24.1 mEq/L (21.0-31.0) 03/04/17 05:20 Anion Gap 8.8 (7.0-16.0) 03/04/17 05:20 BUN 31 mg/dL (7-25) H 03/04/17 05:20 Creatinine 3.7 mg/dL (0.6-1.2) H 03/04/17 05:20 Est GFR ( Amer) 15.6 ml/min (>90) 03/04/17 05:20 Est GFR (Non-Af Amer) 12.9 ml/min 03/04/17 05:20 BUN/Creatinine Ratio 8.4 03/04/17 05:20 Glucose 140 mg/dL (70-105) H 03/04/17 05:20 POC Glucose 85 MG/DL (70 - 105) 03/04/17 05:35 Hemoglobin A1c % 4.6 % (4.0-6.0) 02/27/17 19:30 Whole Bld Lactic Acid 1.39 mmol/L (0.60-1.99) 03/01/17 15:56 Calcium 8.5 mg/dL (8.6-10.3) L 03/04/17 05:20 Phosphorus 4.0 mg/dL (2.5-5.0) 03/04/17 05:20 Magnesium 2.1 mg/dL (1.9-2.7) 03/04/17 05:20 Total Bilirubin 3.2 mg/dL (0.3-1.0) H 03/02/17 05:36 Direct Bilirubin 1.98 mg/dL (0.0-0.2) H 03/02/17 05:36 AST 25 U/L (13-39) 03/02/17 05:36 ALT 4 U/L (7-52) L 03/02/17 05:36 Alkaline Phosphatase 145 U/L (34-104) H 03/02/17 05:36 Total Protein 5.2 gm/dL (6.0-8.3) L 03/02/17 05:36 Albumin 2.2 gm/dL (3.7-5.3) L 03/02/17 05:36 Globulin 3.0 gm/dL 03/02/17 05:36 Albumin/Globulin Ratio 0.7 (1.0-1.8) L 03/02/17 05:36 Prealbumin <3 mg/dL (10-36) L 03/03/17 06:29 Triglycerides 112 mg/dL (<150) 03/03/17 06:29 Gentamicin Peak 8.8 ug/ml (4.0-8.0) 03/01/17 10:00 Gentamicin Trough ug/ml (0.2-2.0) 03/01/17 08:30 Serum Ketones NEGATIVE (NEGATIVE) 02/27/17 19:30 Hepatitis A IgM Ab Negative (Negative) 03/02/17 05:36 Hep Bs Antigen Negative (Negative) 03/02/17 05:36 Hep B Core IgM Ab Negative (Negative) 03/02/17 05:36 Hepatitis C Antibody <0.1 s/co ratio (0.0-0.9) 03/02/17 05:36 Blood Type A POSITIVE 03/03/17 09:10 Antibody Screen NEGATIVE 03/03/17 09:10 Crossmatch See Detail 03/03/17 09:10 - Physical Exam Vitals and I&O: Vital Signs Temp 97.6 F 03/04/17 17:00 Pulse 100 03/04/17 17:15 Resp 16 03/04/17 17:00 BP 113/70 03/04/17 17:15 Pulse Ox 99 03/04/17 17:00 Intake & Output 03/03/17 03/04/17 03/04/17 18:59 06:59 18:59 Intake Total 1300.124 820 100 Output Total 50 0 Balance 1300.124 770 100 Weight (lbs) 123.468 kg 113.398 kg Intake: Intake, IV Amount 1300.124 100 100 Albumin 25% 25gm/100mL 25 50 gm In 100 ml @ 50 mls/hr IV X1 ONE Rx#:[id number] Amino Acids 3% / 895 Electrolytes 1,000 ml @ 60 mls/hr IV .[id number] PENDING SALE TO [facility] Rx#:[id number] Meropenem 500 mg In 100 100 Sodium Chloride 0.9% 100 ml @ 100 mls/hr IV Q12H PENDING SALE TO [facility] Rx#:[id number] Multivitamin Inj 10 ml In 0 Amino Acids 3% / Electrolytes 700 ml In Intralipids 20% 50 ml In Dextrose 10% 680 ml @ 60 mls/hr IV .Q24H PENDING SALE TO [facility] Rx#: [id number] Norepinephrine 8 mg In 255.124 0 Dextrose 5% 250 ml @ 0 MCG/MIN IV TITR PRN Rx#: [id number] Tigecycline 50 mg In 0 100 Sodium Chloride 0.9% 100 ml @ 100 mls/hr IV Q12H PENDING SALE TO [facility] Rx#:[id number] Oral 0 TPN/PPN 720 Output: Urine 0 0 Stool 0 Other 50 Other: # Bowel Movements 0 Active Medications: Current Medications Albuterol Sulfate (Albuterol 2.5mg/3ml Neb Ud) 2.5 mg HHN Q2H PRN PRN Reason: Shortness of Breath Stop: 04/29/17 03:59 Ascorbic Acid (Vitamin C) 500 mg PO DAILY PENDING SALE TO [facility] Stop: 04/29/17 08:59 Last Admin: 03/04/17 15:35 Dose: Not Given Cholecalciferol (Vitamin D3) 2,000 iu PO DAILY PENDING SALE TO [facility] Stop: 04/29/17 08:59 Last Admin: 03/04/17 15:35 Dose: Not Given Diphenhydramine HCl (Benadryl) 25 mg PO Q6H PRN PRN Reason: Itching Stop: 04/29/17 03:39 Escitalopram Oxalate (Lexapro) 10 mg PO DAILY CECIL PRN Reason: Protocol Stop: 04/29/17 08:59 Last Admin: 03/04/17 15:35 Dose: Not Given Famotidine (Pepcid) 20 mg IVP DAILY PENDING SALE TO [facility] Stop: 05/01/17 08:59 Last Admin: 03/04/17 08:40 Dose: 20 mg Fludrocortisone Acetate (Florinef) 0.1 mg PO BID PENDING SALE TO [facility] Stop: 04/29/17 08:59 Last Admin: 03/04/17 15:35 Dose: Not Given Diltiazem HCl 125 mg/ Dextrose 125 mls @ 10 mls/hr IV TITR CECIL; 10 MG/HR PRN Reason: Protocol Stop: 04/29/17 04:14 Last Titration: 03/02/17 09:20 Dose: 0 mg/hr, 0 mls/hr Tigecycline 50 mg/ Sodium (Chloride) 100 mls @ 100 mls/hr IV Q12H PENDING SALE TO [facility] Stop: 04/30/17 11:29 Last Admin: 03/04/17 10:53 Dose: 100 mls/hr Meropenem 500 mg/ Sodium (Chloride) 100 mls @ 100 mls/hr IV Q12H PENDING SALE TO [facility] Stop: 04/30/17 11:44 Last Admin: 03/04/17 15:37 Dose: 100 mls/hr Norepinephrine Bitartrate 8 mg (/ Dextrose) 250 mls @ 0 mls/hr IV TITR PRN; Protocol; 0 MCG/MIN PRN Reason: BP MAINTENANCE (PER PROTOCOL) Stop: 05/01/17 14:16 Last Titration: 03/03/17 19:45 Dose: 2 mcg/min, 3.75 mls/hr Multivitamins/Minerals 10 ml/Amino Acids/Electrolytes/ Fat Emulsion Intravenous / Dextrose 1,440 mls @ 60 mls/hr IV .Q24H [facility] Stop: 05/02/17 15:59 Last Infusion: 03/03/17 19:00 Dose: 60 mls/hr Insulin Aspart (Novolog Insulin Sliding Scale) 0 units SUBQ Q6HR CECIL PRN Reason: Protocol Stop: 05/03/17 00:00 Last Admin: 03/04/17 07:53 Dose: Not Given Lactobacillus Rhamnosus (Culturelle) 1 each PO DAILY PENDING SALE TO [facility] Stop: 05/01/17 08:59 Last Admin: 03/04/17 15:35 Dose: Not Given Metoprolol Tartrate (Lopressor) 50 mg PO Q12HR [facility] Stop: 04/29/17 08:59 Last Admin: 03/04/17 15:36 Dose: Not Given Miconazole Nitrate (Miconazole 2% Cream) 1 appl VG BID PENDING SALE TO [facility] Stop: 03/07/17 08:59 Last Admin: 03/04/17 13:30 Dose: 1 appl Miscellaneous (Clinical Monitoring) 1 ea MC DAILY PRN PRN Reason: RENAL Stop: 04/29/17 10:50 Miscellaneous (Vte Chemical Prophylaxis Screen/ Admission) 1 ea MC PRN PRN PRN Reason: PROTOCOL Stop: 04/29/17 15:40 Miscellaneous (Probiotic Screen) 1 ea MC PRN PRN PRN Reason: PROTOCOL Stop: 04/30/17 10:56 Miscellaneous (Tpn Per Pharmacy) 1 ea MC PRN PRN PRN Reason: PROTOCOL Stop: 04/30/17 18:13 Morphine Sulfate (Morphine) 2 mg IVP Q4HR PRN PRN Reason: Pain (Moderate) Stop: 04/28/17 23:23 Last Admin: 03/04/17 13:50 Dose: 2 mg Zinc Sulfate (Zinc Sulfate) 220 mg PO DAILY PENDING SALE TO [facility] Stop: 04/29/17 08:59 Last Admin: 03/04/17 13:30 Dose: 220 mg General: No acute distress HEENT: Atraumatic, Mucous membr. moist/pink Neck: Supple, +2 carotid pulse wo bruit Cardiovascular: Regular rate, Normal S1, Normal S2 Lungs: Other (few rhonchi) Abdomen: Bowel sounds, Soft, Obese, Other (multiple abd wounds) Extremities: Other (ecchymosis, hematomas, petecchiae), no Edema Neurological: Sensation intact, Other (stuporous) Skin: Rash, Breakdown (multiple blisters), Significant lesion (ECCHYMOSIS, HEMATOMAS, CONTUSIONS) Psych/Mental Status: Mood NL Assessment/Plan - Assessment Assessment: ESRD on HD Acute on chronic nonhealing abdominal wounds status post debridement Severe malnutrition Obesity hypoventilation syndrome Morbid obesity Type 2 diabetes mellitus Essential hypertension Anemia of chronic kidney disease Chronic atrial fibrillation Coronary artery disease 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 - Plan Plan: cont current treatment transfuse PRBC Nutritional Asmnt/Malnutr-PDOC - Dietary Evaluation Malnutrition Findings (Please click <Entered> for more info): Nutritional Asmnt/Malnutrition Start: 02/28/17 14: 25 Text: Status: Complete Freq: Document 02/28/17 14:32 GSUN (Rec: 02/28/17 14:52 [email or web address]) Nutritional Asmnt/Malnutrition Patient General Information Nutritional Screening High Risk Screening Diagnosis Infectured multiple abdominal wound, sepsis, hypotension Pertinent Medical Hx/Surgical Hx DM, end stage renal failure, obesity, multiple abdominal wound, anemia Subjective Information 71 [address] consult for wounds/calciphylaxis. Pt was lethargic during visit, spoke to at bedside. Briefly explained renal diet, agreeable to plan, not suitble for extensive edu at this time. Pt appeared obese. Pt reported UBW 250lb measured 1 month ago, pt is unsure of dry weight at dialysis center. Pt reported has gradually lost weight 80lb over the past year due to poor appetite and hospitalizations. RD recommended oral supplements, pt denied, stating she has tried and threw up. Current Diet Order/ Nutrition Support Renal, 1800kcal Pertinent Medications Vitamin C, Vitamin D3, D5-0. 45ns, Pepcid, Novolog, Culturelle, Morphine, Zinc Sulfate Pertinent Labs /: BUN 38H, creatinine 5H, phosphorus 5.4H Nutritional Hx/Data Height 1.63 m Height (Calculated Centimeters) 162.6 Current Weight (lbs) 113.398 kg Weight (Calculated Kilograms) 113.4 Weight (Calculated Grams) 923890.1 [place] Body Weight 120 Recent Weight Change Yes Weight Status Morbidly Obese GI Symptoms Skin Integrity/Comment: Bilateral lower extremities pitting 3+. Abdominal wounds/ calciphylaxis Estimated Nutritional Goals BEE in Kcals: Adj wt of IBW Calories/Kcals/Kg AdjBW 152.5lb/69.3kg (adjsuted to UBW) Kcals Calculated 2079-2426kcal (30-35kcal/kg) Protein: Adj wt of IBW Protein Calculated 90-104g (1.2-1.5/gkg) Fluid: ml 2079-2426ml (1ml/kcal) Nutritional Problem 3. Problem Problem Malnutrition related to Etiology unknown etiology, energy imbalance aeb Signs/Symptoms: BMI >40 2. Problem Problem Increased kcal and prot needs related to Etiology hypermetabolic state aeb Signs/Symptoms: on HD, sepsis 1. Problem Problem Impaired nutrient utilization related to Etiology end stage renal failure aeb Signs/Symptoms: on HD, BUN 38H, creatinine 5H, phosphorus 5.4H Malnutrition Related to Morbid Obesity Malnutrition related to morbid obesity BMI> or equal to 40 Query Text:(Any 1 Criteria met) Malnutrition related to morbid obesity Yes Intervention/Recommendation Comments 1. Recommend renal diet. Briefly explained renal diet, pt is agreeable to plan. Encourage PO intake. 2. Recommend removing " 1800kcal" restriction as pt is in hypermetabolic state ( sepsis, HD) and obese, requiring more than 1800kcal, weight loss not favorable at this time. 3. Pt reported poor appetite many months, RD recommend oral supplements, pt declined. Expected Outcomes/Goals Expected Outcomes/Goals 1. PO intake to meet at least 75% of estimated nutritional needs.
[2017-03-04] MEDS: ELECTROLYTES IV SCH (18:18)
[2017-03-04] MEDS: AMINO ACIDS IV SCH (18:18)
[2017-03-04] MEDS: INTRALIPIDS IV SCH (18:18)
[2017-03-04] MEDS: [UNRECOGNIZED DRUG - OTHER] IV SCH (18:18)
[2017-03-04] MEDS: MULTIVITAMIN IV SCH (18:18)
--- NOTE | 2017-03-04 23:57 | Infectious Disease Prog Note ---
Infectious Disease Subjective - Review of Systems Service Date: 03/04/17 Subjective: confused, off levophed. No fever. Debridement was performed today. Infectious Disease Objective - Results Result Diagrams: 03/04/17 05:20 03/04/17 05:20 Recent Labs: Laboratory Last Values WBC 16.6 Th/cmm (4.8-10.8) H 03/04/17 05:20 RBC 2.49 Mil/cmm (3.80-5.20) L 03/04/17 05:20 Hgb 7.7 gm/dL (11.7-16.1) L* 03/04/17 05:20 Hct 23.0 % (35.0-45.0) L* 03/04/17 05:20 MCV 92.2 fl (81-100) 03/04/17 05:20 MCH 31.0 pg (27.0-31.0) 03/04/17 05:20 MCHC Differential 33.7 pg (28.0-36.0) 03/04/17 05:20 RDW 17.0 % (11.5-20.0) 03/04/17 05:20 Plt Count 33 Th/cmm (150-400) L 03/04/17 05:20 MPV 7.9 fl 03/04/17 05:20 Neutrophils % 82.3 % (40.0-80.0) H 03/04/17 05:20 Band Neutrophils % 5 % (0-10) 03/03/17 06:29 Lymphocytes % 11.2 % (20.0-50.0) L 03/04/17 05:20 Monocytes % 5.3 % (2.0-10.0) 03/04/17 05:20 Eosinophils % 1.1 % (0.0-5.0) 03/04/17 05:20 Basophils % 0.1 % (0.0-2.0) 03/04/17 05:20 Neutrophils (Manual) 77 % (40-80) 03/03/17 06:29 Lymphocytes 12 % (20-50) L 03/03/17 06:29 Monocytes 6 % (2-10) 03/03/17 06:29 Eosinophils 2 % (0-5) 03/01/17 12:26 Basophils 1 % (0-3) 03/01/17 12:26 Metamyelocytes 1 % (0-0) H 03/02/17 05:36 Hypochromia 1+ 03/03/17 06:29 Platelet Estimate DECREASED PLATELETS (NORMAL) 03/03/17 06:29 Platelet Morphology NORMAL (NORMAL) 03/02/17 05:36 Polychromasia 1+ 03/03/17 06:29 Poikilocytosis 1+ 03/03/17 06:29 Anisocytosis 1+ 03/03/17 06:29 RBC Morph Micro Appear ABNORMAL (NORMAL) 03/02/17 05:36 PT 25.3 SECONDS (9.5-11.5) H 03/02/17 05:36 INR 2.32 (0.5-1.4) H 03/02/17 05:36 PTT (Actin FS) 90.5 SECONDS (26.0-38.0) H* 03/02/17 05:36 Sodium 131 mEq/L (136-145) L 03/04/17 05:20 Potassium 3.9 mEq/L (3.5-5.1) 03/04/17 05:20 Chloride 102 mEq/L (98-107) 03/04/17 05:20 Carbon Dioxide 24.1 mEq/L (21.0-31.0) 03/04/17 05:20 Anion Gap 8.8 (7.0-16.0) 03/04/17 05:20 BUN 31 mg/dL (7-25) H 03/04/17 05:20 Creatinine 3.7 mg/dL (0.6-1.2) H 03/04/17 05:20 Est GFR ( Amer) 15.6 ml/min (>90) 03/04/17 05:20 Est GFR (Non-Af Amer) 12.9 ml/min 03/04/17 05:20 BUN/Creatinine Ratio 8.4 03/04/17 05:20 Glucose 140 mg/dL (70-105) H 03/04/17 05:20 POC Glucose 137 MG/DL (70 - 105) H 03/04/17 23:13 Hemoglobin A1c % 4.6 % (4.0-6.0) 02/27/17 19:30 Whole Bld Lactic Acid 1.39 mmol/L (0.60-1.99) 03/01/17 15:56 Calcium 8.5 mg/dL (8.6-10.3) L 03/04/17 05:20 Phosphorus 4.0 mg/dL (2.5-5.0) 03/04/17 05:20 Magnesium 2.1 mg/dL (1.9-2.7) 03/04/17 05:20 Total Bilirubin 3.2 mg/dL (0.3-1.0) H 03/02/17 05:36 Direct Bilirubin 1.98 mg/dL (0.0-0.2) H 03/02/17 05:36 AST 25 U/L (13-39) 03/02/17 05:36 ALT 4 U/L (7-52) L 03/02/17 05:36 Alkaline Phosphatase 145 U/L (34-104) H 03/02/17 05:36 Total Protein 5.2 gm/dL (6.0-8.3) L 03/02/17 05:36 Albumin 2.2 gm/dL (3.7-5.3) L 03/02/17 05:36 Globulin 3.0 gm/dL 03/02/17 05:36 Albumin/Globulin Ratio 0.7 (1.0-1.8) L 03/02/17 05:36 Prealbumin <3 mg/dL (10-36) L 03/03/17 06:29 Triglycerides 112 mg/dL (<150) 03/03/17 06:29 Gentamicin Peak 8.8 ug/ml (4.0-8.0) 03/01/17 10:00 Gentamicin Trough ug/ml (0.2-2.0) 03/01/17 08:30 Serum Ketones NEGATIVE (NEGATIVE) 02/27/17 19:30 Hepatitis A IgM Ab Negative (Negative) 03/02/17 05:36 Hep Bs Antigen Negative (Negative) 03/02/17 05:36 Hep B Core IgM Ab Negative (Negative) 03/02/17 05:36 Hepatitis C Antibody <0.1 s/co ratio (0.0-0.9) 03/02/17 05:36 Blood Type A POSITIVE 03/03/17 09:10 Antibody Screen NEGATIVE 03/03/17 09:10 Crossmatch See Detail 03/03/17 09:10 - Physical Exam Vitals and I&O: Vital Signs Temp 97.6 F 03/04/17 17:00 Pulse 85 03/04/17 21:29 Resp 16 03/04/17 17:00 BP 150/55 03/04/17 21:29 Pulse Ox 96 03/04/17 22:00 Intake & Output 03/04/17 03/04/17 03/05/17 06:59 18:59 06:59 Intake Total 820 1498 Output Total 50 0 Balance 770 1498 Weight (lbs) 123.468 kg 113.398 kg 123.377 kg Intake: Intake, IV Amount 100 1498 Meropenem 500 mg In 100 Sodium Chloride 0.9% 100 ml @ 100 mls/hr IV Q12H COUNT INCLUDES THE [facility] Rx#:[id number] Multivitamin Inj 10 ml In 0 1398 Amino Acids 3% / Electrolytes 700 ml In Intralipids 20% 50 ml In Dextrose 10% 680 ml @ 60 mls/hr IV .Q24H [facility] Rx#: [id number] Norepinephrine 8 mg In 0 Dextrose 5% 250 ml @ 0 MCG/MIN IV TITR PRN Rx#: [id number] Tigecycline 50 mg In 100 Sodium Chloride 0.9% 100 ml @ 100 mls/hr IV Q12H COUNT INCLUDES THE [facility] Rx#:[id number] Oral 0 TPN/PPN 720 Output: Urine 0 0 Stool 0 Other 50 Other: # Bowel Movements 0 Active Medications: Current Medications Albuterol Sulfate (Albuterol 2.5mg/3ml Neb Ud) 2.5 mg HHN Q2H PRN PRN Reason: Shortness of Breath Stop: 04/29/17 03:59 Ascorbic Acid (Vitamin C) 500 mg PO DAILY COUNT INCLUDES THE [facility] Stop: 04/29/17 08:59 Last Admin: 03/04/17 15:35 Dose: Not Given Cholecalciferol (Vitamin D3) 2,000 iu PO DAILY COUNT INCLUDES THE [facility] Stop: 04/29/17 08:59 Last Admin: 03/04/17 15:35 Dose: Not Given Diphenhydramine HCl (Benadryl) 25 mg PO Q6H PRN PRN Reason: Itching Stop: 04/29/17 03:39 Escitalopram Oxalate (Lexapro) 10 mg PO DAILY CECIL PRN Reason: Protocol Stop: 04/29/17 08:59 Last Admin: 03/04/17 15:35 Dose: Not Given Famotidine (Pepcid) 20 mg IVP DAILY COUNT INCLUDES THE [facility] Stop: 05/01/17 08:59 Last Admin: 03/04/17 08:40 Dose: 20 mg Fludrocortisone Acetate (Florinef) 0.1 mg PO BID COUNT INCLUDES THE [facility] Stop: 04/29/17 08:59 Last Admin: 03/04/17 15:35 Dose: Not Given Diltiazem HCl 125 mg/ Dextrose 125 mls @ 10 mls/hr IV TITR CECIL; 10 MG/HR PRN Reason: Protocol Stop: 04/29/17 04:14 Last Titration: 03/02/17 09:20 Dose: 0 mg/hr, 0 mls/hr Tigecycline 50 mg/ Sodium (Chloride) 100 mls @ 100 mls/hr IV Q12H COUNT INCLUDES THE [facility] Stop: 04/30/17 11:29 Last Admin: 03/04/17 10:53 Dose: 100 mls/hr Meropenem 500 mg/ Sodium (Chloride) 100 mls @ 100 mls/hr IV Q12H COUNT INCLUDES THE [facility] Stop: 04/30/17 11:44 Last Admin: 03/04/17 15:37 Dose: 100 mls/hr Norepinephrine Bitartrate 8 mg (/ Dextrose) 250 mls @ 0 mls/hr IV TITR PRN; Protocol; 0 MCG/MIN PRN Reason: BP MAINTENANCE (PER PROTOCOL) Stop: 05/01/17 14:16 Last Titration: 03/03/17 19:45 Dose: 2 mcg/min, 3.75 mls/hr Multivitamins/Minerals 10 ml/Amino Acids/Electrolytes/ Fat Emulsion Intravenous / Dextrose 1,440 mls @ 60 mls/hr IV .Q24H COUNT INCLUDES THE [facility] Stop: 05/02/17 15:59 Last Admin: 03/04/17 18:18 Dose: 60 mls/hr Insulin Aspart (Novolog Insulin Sliding Scale) 0 units SUBQ Q6HR [facility] PRN Reason: Protocol Stop: 05/03/17 00:00 Last Admin: 03/04/17 23:20 Dose: Not Given Lactobacillus Rhamnosus (Culturelle) 1 each PO DAILY COUNT INCLUDES THE [facility] Stop: 05/01/17 08:59 Last Admin: 03/04/17 15:35 Dose: Not Given Metoprolol Tartrate (Lopressor) 50 mg PO Q12HR COUNT INCLUDES THE [facility] Stop: 04/29/17 08:59 Last Admin: 03/04/17 21:29 Dose: Not Given Miconazole Nitrate (Miconazole 2% Cream) 1 appl VG BID [facility] Stop: 03/07/17 08:59 Last Admin: 03/04/17 13:30 Dose: 1 appl Miscellaneous (Clinical Monitoring) 1 ea MC DAILY PRN PRN Reason: RENAL Stop: 04/29/17 10:50 Miscellaneous (Vte Chemical Prophylaxis Screen/ Admission) 1 ea MC PRN PRN PRN Reason: PROTOCOL Stop: 04/29/17 15:40 Miscellaneous (Probiotic Screen) 1 ea MC PRN PRN PRN Reason: PROTOCOL Stop: 04/30/17 10:56 Miscellaneous (Tpn Per Pharmacy) 1 ea MC PRN PRN PRN Reason: PROTOCOL Stop: 04/30/17 18:13 Morphine Sulfate (Morphine) 2 mg IVP Q4HR PRN PRN Reason: Pain (Moderate) Stop: 04/28/17 23:23 Last Admin: 03/04/17 13:50 Dose: 2 mg Zinc Sulfate (Zinc Sulfate) 220 mg PO DAILY COUNT INCLUDES THE [facility] Stop: 04/29/17 08:59 Last Admin: 03/04/17 13:30 Dose: 220 mg General: no acute distress, other (Obese.) HEENT: atraumatic, normocephalic, PERRLA Neck: supple, no thyromegaly Cardiovascular: S1S2, regular, systolic murmur Lungs: clear to auscultation bilaterally, clear to percussion Abdomen: soft, tender, other (wound in lower abdomen), no distended Extremities: no cyanosis, no clubbing, no edema Neurological: awake, other (confused.) Infectious Disease Assmt/Plan - Assessment Assessment: 1. Leukocytosis , septic shock. 2. Infected lower abdominal wounds, worse on the left. Growing CRE. 3. Calciphylaxis of lower abdomen. 4. Obesity. 5. Dm2 6. CKD 5 on HD. 7. HTN. 8. Anemia of CD. 9. s/p debridement. - Plan Plan: Will Continue tygacil and meropenem IV. wound care. Nutritional Asmnt/Malnutr-PDOC - Dietary Evaluation Malnutrition Findings (Please click <Entered> for more info): Nutritional Asmnt/Malnutrition Start: 02/28/17 14: 25 Text: Status: Complete Freq: Document 02/28/17 14:32 GSUN (Rec: 02/28/17 14:52 PENNIE [email or web address]) Nutritional Asmnt/Malnutrition Patient General Information Nutritional Screening High Risk Screening Diagnosis Infectured multiple abdominal wound, sepsis, hypotension Pertinent Medical Hx/Surgical Hx DM, end stage renal failure, obesity, multiple abdominal wound, anemia Subjective Information 71 [address] consult for wounds/calciphylaxis. Pt was lethargic during visit, spoke to at bedside. Briefly explained renal diet, agreeable to plan, not suitble for extensive edu at this time. Pt appeared obese. Pt reported UBW 250lb measured 1 month ago, pt is unsure of dry weight at dialysis center. Pt reported has gradually lost weight 80lb over the past year due to poor appetite and hospitalizations. RD recommended oral supplements, pt denied, stating she has tried and threw up. Current Diet Order/ Nutrition Support Renal, 1800kcal Pertinent Medications Vitamin C, Vitamin D3, D5-0. 45ns, Pepcid, Novolog, Culturelle, Morphine, Zinc Sulfate Pertinent Labs 02/28: BUN 38H, creatinine 5H, phosphorus 5.4H Nutritional Hx/Data Height 1.63 m Height (Calculated Centimeters) 162.6 Current Weight (lbs) 113.398 kg Weight (Calculated Kilograms) 113.4 Weight (Calculated Grams) 984898.1 Van Body Weight 120 Recent Weight Change Yes Weight Status Morbidly Obese GI Symptoms Skin Integrity/Comment: Bilateral lower extremities pitting 3+. Abdominal wounds/ calciphylaxis Estimated Nutritional Goals BEE in Kcals: Adj wt of IBW Calories/Kcals/Kg AdjBW 152.5lb/69.3kg (adjsuted to UBW) Kcals Calculated 2079-2426kcal (30-35kcal/kg) Protein: Adj wt of IBW Protein Calculated 90-104g (1.2-1.5/gkg) Fluid: ml 2079-2426ml (1ml/kcal) Nutritional Problem 3. Problem Problem Malnutrition related to Etiology unknown etiology, energy imbalance aeb Signs/Symptoms: BMI >40 2. Problem Problem Increased kcal and prot needs related to Etiology hypermetabolic state aeb Signs/Symptoms: on HD, sepsis 1. Problem Problem Impaired nutrient utilization related to Etiology end stage renal failure aeb Signs/Symptoms: on HD, BUN 38H, creatinine 5H, phosphorus 5.4H Malnutrition Related to Morbid Obesity Malnutrition related to morbid obesity BMI> or equal to 40 Query Text:(Any 1 Criteria met) Malnutrition related to morbid obesity Yes Intervention/Recommendation Comments 1. Recommend renal diet. Briefly explained renal diet, pt is agreeable to plan. Encourage PO intake. 2. Recommend removing " 1800kcal" restriction as pt is in hypermetabolic state ( sepsis, HD) and obese, requiring more than 1800kcal, weight loss not favorable at this time. 3. Pt reported poor appetite many months, RD recommend oral supplements, pt declined. Expected Outcomes/Goals Expected Outcomes/Goals 1. PO intake to meet at least 75% of estimated nutritional needs.
[2017-03-05] MEDS: Meropenem 500 MG in Sodium Chloride 0.9% 100 ML IV SCH ×2 (01:21→13:44)
[2017-03-05] MEDS: Morphine Sulfate 2 mg/mL 1mL Syr IVP PRN ×3 (02:24→17:48)
[2017-03-05] MEDS: INSULIN ASPART SLIDING SCALE 100 UNITS/ML UNIT SUBQ SCH ×3 (05:46→17:45)
[2017-03-05 07:57] LABS: MEAN CELL VOLUME 90.9 fl (81-100); MEAN CORPUSCULAR HEMOGLOBIN 30.6 pg (27.0-31.0); MEAN CORPUSCULAR HGB CONC 33.7 pg (28.0-36.0); MEAN PLATELET VOLUME 8.4 fl; RED BLOOD COUNT 3.31 Mil/cmm (3.80-5.20); RED CELL DISTRIBUTION WIDTH 16.1 % (11.5-20.0); WHITE BLOOD COUNT 16.6 Th/cmm (4.8-10.8)
[2017-03-05 08:25] LABS: ALB/GLOB RATIO 0.8 (1.0-1.8); ANION GAP 10.5 (7.0-16.0); BILIRUBIN,TOTAL 4.1 mg/dL (0.3-1.0); BUN/CREATININE RATIO 9.5; CALCIUM SERUM 8.4 mg/dL (8.6-10.3); CARBON DIOXIDE 22.7 mEq/L (21.0-31.0); MAGNESIUM 2.2 mg/dL (1.9-2.7); PHOSPHOROUS 4.5 mg/dL (2.5-5.0); POTASSIUM SERUM 4.2 mEq/L (3.5-5.1)
[2017-03-05 08:30] LABS: HEMATOCRIT 30.1 % (35.0-45.0); HEMOGLOBIN 10.1 gm/dL (11.7-16.1); PLATELET COUNT 28 Th/cmm (150-400)
[2017-03-05 09:20] LABS: BAND NEUTROPHILE 4 % (0-10); NEUTROPHILS 78 % (40-80); TOTAL CELLS COUNTED 100
[2017-03-05 09:21] LABS: PLATELET ESTIMATE DECREASED PLATELETS (NORMAL)
[2017-03-05] MEDS ORDERED: Hydrocodone/APAP 10 mg/325 mg Tab PO PRN (09:28)
--- NOTE | 2017-03-05 09:37 | Operative Report ---
DATE OF SURGERY: 03/05/2017 PREOPERATIVE DIAGNOSES: 1. Open wounds of the left abdomen, size 25 x 10 cm, depth to the subcutaneous, depth to the fascia. 2. Open wound midline lower abdomen size 10 x 5 cm. 3. Open wound of the right lateral abdomen size 20 x 10 cm, depth to the fascia. DIAGNOSES: 1. End-stage renal disease. 2. Calciphylaxis. 3. Diabetes mellitus. POSTOPERATIVE DIAGNOSES: 1. Open wounds of the left abdomen, size 25 x 10 cm, depth to the subcutaneous, depth to the fascia. 2. Open wound midline lower abdomen size 10 x 5 cm. 3. Open wound of the right lateral abdomen size 20 x 10 cm, depth to the fascia. OPERATION DONE: Excisional debridement of wounds left abdomen, midline abdomen, and right abdomen with application of wound VAC. ANESTHESIA: MAC anesthesia. ANESTHESIOLOGIST: Ines Rob M.D. Informed consent discussed with the who gave the consent. The patient has chronic wounds and increasing in size due to suspected calciphylaxis. It is being management by Internal Medicine and Nephrology. DESCRIPTION OF PROCEDURE: The wounds were prepped with Betadine and draped. Sharp scissors were used to debride tissues. In the process, parts of pieces of subcutaneous tissues that were rather loose were removed and cautery was used for hemostasis. This was done for all the wounds. Following hemostasis, the wound was packed with silver sponge and connected to wound VAC. The patient tolerated the procedure well. JOB# [id number]
--- NOTE | 2017-03-05 09:51 | Operative Report ---
DATE OF SURGERY: 03/05/2017 PREOPERATIVE DIAGNOSES: 1. Open wounds of the abdomen with necrotic tissue, status post previous debridement. 2. New hematomas of the right leg measuring 15 x 15 cm medial aspect upper leg. 3. Ankle hematoma, size 3 x 2 cm. OPERATION DONE: 1. Excisional debridement, left abdominal wound, size 25 x 10 cm, stage III. 2. Excisional debridement midline abdominal wound, size 10 x 5 cm. 3. Excisional debridement of right lower abdomen wound, size 20 x 10 cm. 4. Application of wound VAC to excisional debridement, left abdominal wound, size 25 x 10 cm, stage III; excisional debridement midline abdominal wound, size 10 x 5 cm; and excisional debridement of right lower abdomen wound, size 20 x 10 cm. 5. Excisional debridement of right leg hematoma. 6. Excisional debridement of right ankle hematoma. SURGEON: Casandra Harris M.D. ANESTHESIA: MAC. ANESTHESIOLOGIST: Ines Rob M.D. ESTIMATED BLOOD LOSS: 30 mL. DESCRIPTION OF PROCEDURE: The patient was given IV sedation. The right leg hematomas were prepped with Betadine and draped. The tissues were very friable and just seemed to come off without using scissors. There was some active bleeding, which was controlled with cautery, following which, Surgicel was applied and then Xeroform. This was repeated on the right ankle hematoma as well and sterile dressing was applied and compression dressing. The abdominal wounds were prepped with Betadine and draped. Sharp scissors were used to excise the tissues. There was some bleeding in the lateral aspect of the left side. This was controlled with multiple sutures. Following satisfactory hemostasis, a silver sponge was applied and wound VAC. The patient tolerated the procedure well. JOB# [id number]
--- NOTE | 2017-03-05 09:54 | General Progress Note ---
Subjective - Review of Systems Subjective: Patient is seen and examined. Patient is well known to me from [facility] where she stayed in the hospital for one year. She was discharged to lower level of care and she bounced back to acute care facility with septic shock with multiple infected wound and developed more ischemic wounds on her extremities. Patient's underwent surgical debridement of her wounds. Objective - Results Result Diagrams: 03/05/17 07:45 03/05/17 07:45 Recent Labs: Laboratory Last Values WBC 16.6 Th/cmm (4.8-10.8) H 03/05/17 07:45 RBC 3.31 Mil/cmm (3.80-5.20) L 03/05/17 07:45 Hgb 10.1 gm/dL (11.7-16.1) L D 03/05/17 07:45 Hct 30.1 % (35.0-45.0) L D 03/05/17 07:45 MCV 90.9 fl (81-100) 03/05/17 07:45 MCH 30.6 pg (27.0-31.0) 03/05/17 07:45 MCHC Differential 33.7 pg (28.0-36.0) 03/05/17 07:45 RDW 16.1 % (11.5-20.0) 03/05/17 07:45 Plt Count 28 Th/cmm (150-400) L* 03/05/17 07:45 MPV 8.4 fl 03/05/17 07:45 Neutrophils % 82.3 % (40.0-80.0) H 03/04/17 05:20 Band Neutrophils % 4 % (0-10) 03/05/17 07:45 Lymphocytes % 11.2 % (20.0-50.0) L 03/04/17 05:20 Monocytes % 5.3 % (2.0-10.0) 03/04/17 05:20 Eosinophils % 1.1 % (0.0-5.0) 03/04/17 05:20 Basophils % 0.1 % (0.0-2.0) 03/04/17 05:20 Neutrophils (Manual) 78 % (40-80) 03/05/17 07:45 Lymphocytes 12 % (20-50) L 03/05/17 07:45 Monocytes 6 % (2-10) 03/05/17 07:45 Eosinophils 2 % (0-5) 03/01/17 12:26 Basophils 1 % (0-3) 03/01/17 12:26 Metamyelocytes 1 % (0-0) H 03/02/17 05:36 Hypochromia 1+ 03/03/17 06:29 Platelet Estimate DECREASED PLATELETS (NORMAL) 03/05/17 07:45 Platelet Morphology NORMAL (NORMAL) 03/02/17 05:36 Polychromasia 1+ 03/03/17 06:29 Poikilocytosis 1+ 03/03/17 06:29 Anisocytosis 1+ 03/03/17 06:29 RBC Morph Micro Appear ABNORMAL (NORMAL) 03/02/17 05:36 PT 25.3 SECONDS (9.5-11.5) H 03/02/17 05:36 INR 2.32 (0.5-1.4) H 03/02/17 05:36 PTT (Actin FS) 90.5 SECONDS (26.0-38.0) H* 03/02/17 05:36 Sodium 129 mEq/L (136-145) L 03/05/17 07:45 Potassium 4.2 mEq/L (3.5-5.1) 03/05/17 07:45 Chloride 100 mEq/L (98-107) 03/05/17 07:45 Carbon Dioxide 22.7 mEq/L (21.0-31.0) 03/05/17 07:45 Anion Gap 10.5 (7.0-16.0) 03/05/17 07:45 BUN 38 mg/dL (7-25) H 03/05/17 07:45 Creatinine 4.0 mg/dL (0.6-1.2) H 03/05/17 07:45 Est GFR ( Amer) 14.3 ml/min (>90) 03/05/17 07:45 Est GFR (Non-Af Amer) 11.8 ml/min 03/05/17 07:45 BUN/Creatinine Ratio 9.5 03/05/17 07:45 Glucose 122 mg/dL (70-105) H 03/05/17 07:45 POC Glucose 110 MG/DL (70 - 105) H 03/05/17 05:43 Hemoglobin A1c % 4.6 % (4.0-6.0) 02/27/17 19:30 Whole Bld Lactic Acid 1.39 mmol/L (0.60-1.99) 03/01/17 15:56 Calcium 8.4 mg/dL (8.6-10.3) L 03/05/17 07:45 Phosphorus 4.5 mg/dL (2.5-5.0) 03/05/17 07:45 Magnesium 2.2 mg/dL (1.9-2.7) 03/05/17 07:45 Total Bilirubin 4.1 mg/dL (0.3-1.0) H 03/05/17 07:45 Direct Bilirubin 1.98 mg/dL (0.0-0.2) H 03/02/17 05:36 AST 30 U/L (13-39) 03/05/17 07:45 ALT 7 U/L (7-52) 03/05/17 07:45 Alkaline Phosphatase 132 U/L (34-104) H 03/05/17 07:45 Total Protein 5.3 gm/dL (6.0-8.3) L 03/05/17 07:45 Albumin 2.3 gm/dL (3.7-5.3) L 03/05/17 07:45 Globulin 3.0 gm/dL 03/05/17 07:45 Albumin/Globulin Ratio 0.8 (1.0-1.8) L 03/05/17 07:45 Prealbumin <3 mg/dL (10-36) L 03/03/17 06:29 Triglycerides 112 mg/dL (<150) 03/03/17 06:29 Gentamicin Peak 8.8 ug/ml (4.0-8.0) 03/01/17 10:00 Gentamicin Trough ug/ml (0.2-2.0) 03/01/17 08:30 Serum Ketones NEGATIVE (NEGATIVE) 02/27/17 19:30 Hepatitis A IgM Ab Negative (Negative) 03/02/17 05:36 Hep Bs Antigen Negative (Negative) 03/02/17 05:36 Hep B Core IgM Ab Negative (Negative) 03/02/17 05:36 Hepatitis C Antibody <0.1 s/co ratio (0.0-0.9) 03/02/17 05:36 Blood Type A POSITIVE 03/03/17 09:10 Antibody Screen NEGATIVE 03/03/17 09:10 Crossmatch See Detail 03/03/17 09:10 - Physical Exam Vitals and I&O: Vital Signs Temp 98.0 F 03/05/17 04:00 Pulse 103 03/05/17 06:00 Resp 18 03/05/17 06:00 BP 136/83 03/05/17 06:00 Pulse Ox 96 03/05/17 06:00 Intake & Output 03/04/17 03/05/17 03/05/17 18:59 06:59 18:59 Intake Total 1698 1220 Output Total 0 100 Balance 1698 1120 Weight (lbs) 113.398 kg 123.15 kg Intake: Intake, IV Amount 1698 Meropenem 500 mg In 200 Sodium Chloride 0.9% 100 ml @ 100 mls/hr IV Q12H [facility] Rx#:[id number] Multivitamin Inj 10 ml In 1398 Amino Acids 3% / Electrolytes 700 ml In Intralipids 20% 50 ml In Dextrose 10% 680 ml @ 60 mls/hr IV .Q24H [facility] Rx#: [id number] Tigecycline 50 mg In 100 Sodium Chloride 0.9% 100 ml @ 100 mls/hr IV Q12H [facility] Rx#:[id number] TPN/PPN 720 Blood Product 500 Output: Drainage 100 Left Lower Abdomen 50 Right Lower Abdomen 50 Urine 0 Stool 0 Active Medications: Current Medications Acetaminophen/Hydrocodone Bitart ([place] 10 Mg/325 Mg) 1 tab PO Q6H PRN PRN Reason: Pain (Moderate) Stop: 05/04/17 09:27 Albuterol Sulfate (Albuterol 2.5mg/3ml Neb Ud) 2.5 mg HHN Q2H PRN PRN Reason: Shortness of Breath Stop: 04/29/17 03:59 Ascorbic Acid (Vitamin C) 500 mg PO DAILY [facility] Stop: 04/29/17 08:59 Last Admin: 03/04/17 15:35 Dose: Not Given Cholecalciferol (Vitamin D3) 2,000 iu PO DAILY [facility] Stop: 04/29/17 08:59 Last Admin: 03/04/17 15:35 Dose: Not Given Diphenhydramine HCl (Benadryl) 25 mg PO Q6H PRN PRN Reason: Itching Stop: 04/29/17 03:39 Escitalopram Oxalate (Lexapro) 10 mg PO DAILY [facility] PRN Reason: Protocol Stop: 04/29/17 08:59 Last Admin: 03/04/17 15:35 Dose: Not Given Famotidine (Pepcid) 20 mg IVP DAILY [facility] Stop: 05/01/17 08:59 Last Admin: 03/04/17 08:40 Dose: 20 mg Fludrocortisone Acetate (Florinef) 0.1 mg PO BID [facility] Stop: 04/29/17 08:59 Last Admin: 03/04/17 15:35 Dose: Not Given Diltiazem HCl 125 mg/ Dextrose 125 mls @ 10 mls/hr IV TITR [facility]; 10 MG/HR PRN Reason: Protocol Stop: 04/29/17 04:14 Last Titration: 03/02/17 09:20 Dose: 0 mg/hr, 0 mls/hr Tigecycline 50 mg/ Sodium (Chloride) 100 mls @ 100 mls/hr IV Q12H [facility] Stop: 04/30/17 11:29 Last Admin: 03/05/17 00:21 Dose: 100 mls/hr Meropenem 500 mg/ Sodium (Chloride) 100 mls @ 100 mls/hr IV Q12H [facility] Stop: 04/30/17 11:44 Last Admin: 03/05/17 01:21 Dose: 100 mls/hr Norepinephrine Bitartrate 8 mg (/ Dextrose) 250 mls @ 0 mls/hr IV TITR PRN; Protocol; 0 MCG/MIN PRN Reason: BP MAINTENANCE (PER PROTOCOL) Stop: 05/01/17 14:16 Last Titration: 03/03/17 19:45 Dose: 2 mcg/min, 3.75 mls/hr Multivitamins/Minerals 10 ml/Amino Acids/Electrolytes/ Fat Emulsion Intravenous / Dextrose 1,440 mls @ 60 mls/hr IV .Q24H [facility] Stop: 05/02/17 15:59 Last Admin: 03/04/17 18:18 Dose: 60 mls/hr Insulin Aspart (Novolog Insulin Sliding Scale) 0 units SUBQ Q6HR [facility] PRN Reason: Protocol Stop: 05/03/17 00:00 Last Admin: 03/05/17 05:46 Dose: Not Given Lactobacillus Rhamnosus (Culturelle) 1 each PO DAILY [facility] Stop: 05/01/17 08:59 Last Admin: 03/04/17 15:35 Dose: Not Given Metoprolol Tartrate (Lopressor) 50 mg PO Q12HR [facility] Stop: 04/29/17 08:59 Last Admin: 03/04/17 21:29 Dose: Not Given Miconazole Nitrate (Miconazole 2% Cream) 1 appl VG BID [facility] Stop: 03/07/17 08:59 Last Admin: 03/04/17 13:30 Dose: 1 appl Miscellaneous (Clinical Monitoring) 1 ea [facility] DAILY PRN PRN Reason: RENAL Stop: 04/29/17 10:50 Miscellaneous (Vte Chemical Prophylaxis Screen/ Admission) 1 ea [facility] PRN PRN PRN Reason: PROTOCOL Stop: 04/29/17 15:40 Miscellaneous (Probiotic Screen) 1 ea [facility] PRN PRN PRN Reason: PROTOCOL Stop: 04/30/17 10:56 Miscellaneous (Tpn Per Pharmacy) 1 ea [facility] PRN PRN PRN Reason: PROTOCOL Stop: 04/30/17 18:13 Miscellaneous (Amikacin [Amikin]) 300 mg IV DAILY [facility] Stop: 05/05/17 08:59 Miscellaneous (Meropenem [Meropenem]) 500 mg IV DAILY [facility] Stop: 05/05/17 08:59 Morphine Sulfate (Morphine) 2 mg IVP Q4HR PRN PRN Reason: Pain (Moderate) Stop: 04/28/17 23:23 Last Admin: 03/05/17 02:24 Dose: 2 mg Zinc Sulfate (Zinc Sulfate) 220 mg PO DAILY [facility] Stop: 04/29/17 08:59 Last Admin: 03/04/17 13:30 Dose: 220 mg General: Alert, Mild distress HEENT: Atraumatic, PERRLA, EOMI, Mucous membr. moist/pink Neck: Supple, +2 carotid pulse wo bruit Cardiovascular: Other (irregularly irregular.) Lungs: Other (few rhonchi) Abdomen: Bowel sounds, Soft, Obese, Other (multiple abd wounds, which wound vac. ) Extremities: Other (ecchymosis, hematomas, petecchiae), no Edema Neurological: Other (stuporous) Skin: Rash, Breakdown (multiple blisters), Significant lesion (multiple bruises and ecchymosis, ischemic wounds.) Psych/Mental Status: Mood NL, Other (labile) Assessment/Plan - Assessment Assessment: Septic shock. Multiple infected wounds on abdomen and extremities. End-stage renal disease on hemodialysis. Hypertension. Coronary artery disease. Severe thrombocytopenia secondary to DIC and possible medication related. Anemia of chronic kidney disease and anemia of inflammation. Chronic atrial fibrillation. Anxiety depression. History of DVT and jugular venous thrombosis. Heparin induced thrombocytopenia history. Diffuse DJD. Bed confined. Guarded prognosis. - Plan Plan: ICU status. IV antibiotic. Hemodialysis. Wound care. Cardiac monitoring. Hematology consultation Cardiology consultation and follow-up General nursing care ID follow-up and follow the recommendations Follow labs. Follow-up consultants recommendations. Prognosis guarded. Appropriate home medicine reconciliation. Anticoagulation therapy. Chronic management of her chronic illnesses. Care plan reviewed and discussed with staff. Nutritional Asmnt/Malnutr-PDOC - Dietary Evaluation Malnutrition Findings (Please click <Entered> for more info): Nutritional Asmnt/Malnutrition Start: 02/28/17 14: 25 Text: Status: Complete Freq: Document 02/28/17 14:32 GSUN (Rec: 02/28/17 14:52 [email or web address] [email or web address]) Nutritional Asmnt/Malnutrition Patient General Information Nutritional Screening High Risk Screening Diagnosis Infectured multiple abdominal wound, sepsis, hypotension Pertinent Medical Hx/Surgical Hx DM, end stage renal failure, obesity, multiple abdominal wound, anemia Subjective Information 71 [address] consult for wounds/calciphylaxis. Pt was lethargic during visit, spoke to at bedside. Briefly explained renal diet, agreeable to plan, not suitble for extensive edu at this time. Pt appeared obese. Pt reported UBW 250lb measured 1 month ago, pt is unsure of dry weight at dialysis center. Pt reported has gradually lost weight 80lb over the past year due to poor appetite and hospitalizations. RD recommended oral supplements, pt denied, stating she has tried and threw up. Current Diet Order/ Nutrition Support Renal, 1800kcal Pertinent Medications Vitamin C, Vitamin D3, D5-0. 45ns, Pepcid, Novolog, Culturelle, Morphine, Zinc Sulfate Pertinent Labs 8/2: BUN 38H, creatinine 5H, phosphorus 5.4H Nutritional Hx/Data Height 1.63 m Height (Calculated Centimeters) 162.6 Current Weight (lbs) 113.398 kg Weight (Calculated Kilograms) 113.4 Weight (Calculated Grams) 920259.1 Bulger Body Weight 120 Recent Weight Change Yes Weight Status Morbidly Obese GI Symptoms Skin Integrity/Comment: Bilateral lower extremities pitting 3+. Abdominal wounds/ calciphylaxis Estimated Nutritional Goals BEE in Kcals: Adj wt of IBW Calories/Kcals/Kg AdjBW 152.5lb/69.3kg (adjsuted to UBW) Kcals Calculated 2078-2426kcal (30-35kcal/kg) Protein: Adj wt of IBW Protein Calculated 90-104g (1.2-1.5/gkg) Fluid: ml 2079-2426ml (1ml/kcal) Nutritional Problem 3. Problem Problem Malnutrition related to Etiology unknown etiology, energy imbalance aeb Signs/Symptoms: BMI >40 2. Problem Problem Increased kcal and prot needs related to Etiology hypermetabolic state aeb Signs/Symptoms: on HD, sepsis 1. Problem Problem Impaired nutrient utilization related to Etiology end stage renal failure aeb Signs/Symptoms: on HD, BUN 38H, creatinine 5H, phosphorus 5.4H Malnutrition Related to Morbid Obesity Malnutrition related to morbid obesity BMI> or equal to 40 Query Text:(Any 1 Criteria met) Malnutrition related to morbid obesity Yes Intervention/Recommendation Comments 1. Recommend renal diet. Briefly explained renal diet, pt is agreeable to plan. Encourage PO intake. 2. Recommend removing " 1800kcal" restriction as pt is in hypermetabolic state ( sepsis, HD) and obese, requiring more than 1800kcal, weight loss not favorable at this time. 3. Pt reported poor appetite many months, RD recommend oral supplements, pt declined. Expected Outcomes/Goals Expected Outcomes/Goals 1. PO intake to meet at least 75% of estimated nutritional needs.
[2017-03-05] MEDS: Lactobacillus Rhamnosus 10 Billion CFU Capsule PO SCH (10:27)
--- NOTE | 2017-03-05 10:58 | Diagnostic Imaging Report ---
Portable chest x-ray HISTORY: Shortness of breath Compared to prior exam of March 04, 2017, the heart remains enlarged. Density remains in left lower hemithorax consistent with a pleural effusion. Bilateral pulmonary infiltrates noted. Pulmonary vascular redistribution is consistent with a degree of congestive heart failure. IMPRESSION: 1. Little change with cardiomegaly and findings consistent with congestive heart failure, pulmonary edema, and a left pleural effusion. Underlying pneumonia cannot be excluded. Clinical correlation needed.
[2017-03-05] MEDS ORDERED: Amikacin 500 mg in D5W 100mL (Q24HR) IV ONE (11:00)
--- NOTE | 2017-03-05 13:23 | General Progress Note ---
Subjective - Review of Systems Service Date: 03/05/17 Subjective: remains stuporous, on VM , mild tachypnea Objective - Results Result Diagrams: 03/05/17 07:45 03/05/17 07:45 Recent Labs: Laboratory Last Values WBC 16.6 Th/cmm (4.8-10.8) H 03/05/17 07:45 RBC 3.31 Mil/cmm (3.80-5.20) L 03/05/17 07:45 Hgb 10.1 gm/dL (11.7-16.1) L D 03/05/17 07:45 Hct 30.1 % (35.0-45.0) L D 03/05/17 07:45 MCV 90.9 fl (81-100) 03/05/17 07:45 MCH 30.6 pg (27.0-31.0) 03/05/17 07:45 MCHC Differential 33.7 pg (28.0-36.0) 03/05/17 07:45 RDW 16.1 % (11.5-20.0) 03/05/17 07:45 Plt Count 28 Th/cmm (150-400) L* 03/05/17 07:45 MPV 8.4 fl 03/05/17 07:45 Neutrophils % 82.3 % (40.0-80.0) H 03/04/17 05:20 Band Neutrophils % 4 % (0-10) 03/05/17 07:45 Lymphocytes % 11.2 % (20.0-50.0) L 03/04/17 05:20 Monocytes % 5.3 % (2.0-10.0) 03/04/17 05:20 Eosinophils % 1.1 % (0.0-5.0) 03/04/17 05:20 Basophils % 0.1 % (0.0-2.0) 03/04/17 05:20 Neutrophils (Manual) 78 % (40-80) 03/05/17 07:45 Lymphocytes 12 % (20-50) L 03/05/17 07:45 Monocytes 6 % (2-10) 03/05/17 07:45 Eosinophils 2 % (0-5) 03/01/17 12:26 Basophils 1 % (0-3) 03/01/17 12:26 Metamyelocytes 1 % (0-0) H 03/02/17 05:36 Hypochromia 1+ 03/03/17 06:29 Platelet Estimate DECREASED PLATELETS (NORMAL) 03/05/17 07:45 Platelet Morphology NORMAL (NORMAL) 03/02/17 05:36 Polychromasia 1+ 03/03/17 06:29 Poikilocytosis 1+ 03/03/17 06:29 Anisocytosis 1+ 03/03/17 06:29 RBC Morph Micro Appear ABNORMAL (NORMAL) 03/02/17 05:36 PT 25.3 SECONDS (9.5-11.5) H 03/02/17 05:36 INR 2.32 (0.5-1.4) H 03/02/17 05:36 PTT (Actin FS) 90.5 SECONDS (26.0-38.0) H* 03/02/17 05:36 Sodium 129 mEq/L (136-145) L 03/05/17 07:45 Potassium 4.2 mEq/L (3.5-5.1) 03/05/17 07:45 Chloride 100 mEq/L (98-107) 03/05/17 07:45 Carbon Dioxide 22.7 mEq/L (21.0-31.0) 03/05/17 07:45 Anion Gap 10.5 (7.0-16.0) 03/05/17 07:45 BUN 38 mg/dL (7-25) H 03/05/17 07:45 Creatinine 4.0 mg/dL (0.6-1.2) H 03/05/17 07:45 Est GFR ( Amer) 14.3 ml/min (>90) 03/05/17 07:45 Est GFR (Non-Af Amer) 11.8 ml/min 03/05/17 07:45 BUN/Creatinine Ratio 9.5 03/05/17 07:45 Glucose 122 mg/dL (70-105) H 03/05/17 07:45 POC Glucose 110 MG/DL (70 - 105) H 03/05/17 05:43 Hemoglobin A1c % 4.6 % (4.0-6.0) 02/27/17 19:30 Whole Bld Lactic Acid 1.39 mmol/L (0.60-1.99) 03/01/17 15:56 Calcium 8.4 mg/dL (8.6-10.3) L 03/05/17 07:45 Phosphorus 4.5 mg/dL (2.5-5.0) 03/05/17 07:45 Magnesium 2.2 mg/dL (1.9-2.7) 03/05/17 07:45 Total Bilirubin 4.1 mg/dL (0.3-1.0) H 03/05/17 07:45 Direct Bilirubin 1.98 mg/dL (0.0-0.2) H 03/02/17 05:36 AST 30 U/L (13-39) 03/05/17 07:45 ALT 7 U/L (7-52) 03/05/17 07:45 Alkaline Phosphatase 132 U/L (34-104) H 03/05/17 07:45 Total Protein 5.3 gm/dL (6.0-8.3) L 03/05/17 07:45 Albumin 2.3 gm/dL (3.7-5.3) L 03/05/17 07:45 Globulin 3.0 gm/dL 03/05/17 07:45 Albumin/Globulin Ratio 0.8 (1.0-1.8) L 03/05/17 07:45 Prealbumin <3 mg/dL (10-36) L 03/03/17 06:29 Triglycerides 112 mg/dL (<150) 03/03/17 06:29 Cholesterol < 25 mg/dL (<200) 03/05/17 07:45 Gentamicin Peak 8.8 ug/ml (4.0-8.0) 03/01/17 10:00 Gentamicin Trough ug/ml (0.2-2.0) 03/01/17 08:30 Serum Ketones NEGATIVE (NEGATIVE) 02/27/17 19:30 Hepatitis A IgM Ab Negative (Negative) 03/02/17 05:36 Hep Bs Antigen Negative (Negative) 03/02/17 05:36 Hep B Core IgM Ab Negative (Negative) 03/02/17 05:36 Hepatitis C Antibody <0.1 s/co ratio (0.0-0.9) 03/02/17 05:36 Blood Type A POSITIVE 03/03/17 09:10 Antibody Screen NEGATIVE 03/03/17 09:10 Crossmatch See Detail 03/03/17 09:10 - Physical Exam Vitals and I&O: Vital Signs Temp 98 F 03/05/17 08:00 Pulse 88 03/05/17 08:00 Resp 17 03/05/17 08:00 BP 106/48 03/05/17 08:00 Pulse Ox 100 03/05/17 08:00 Intake & Output 03/04/17 03/05/17 03/05/17 18:59 06:59 18:59 Intake Total 1698 1320 70 Output Total 0 100 Balance 1698 1220 70 Weight (lbs) 113.398 kg 123.15 kg 131.3 kg Intake: Intake, IV Amount 1698 100 Meropenem 500 mg In 200 Sodium Chloride 0.9% 100 ml @ 100 mls/hr IV Q12H [facility] Rx#:[id number] Multivitamin Inj 10 ml In 1398 Amino Acids 3% / Electrolytes 700 ml In Intralipids 20% 50 ml In Dextrose 10% 680 ml @ 60 mls/hr IV .Q24H [facility] Rx#: [id number] Tigecycline 50 mg In 100 100 Sodium Chloride 0.9% 100 ml @ 100 mls/hr IV Q12H [facility] Rx#:[id number] TPN/PPN 720 70 Blood Product 500 Output: Drainage 100 Left Lower Abdomen 50 Right Lower Abdomen 50 Urine 0 Stool 0 Active Medications: Current Medications Acetaminophen/Hydrocodone Bitart (Seguin 10 Mg/325 Mg) 1 tab PO Q6H PRN PRN Reason: Pain (Moderate) Stop: 05/04/17 09:27 Albuterol Sulfate (Albuterol 2.5mg/3ml Neb Ud) 2.5 mg HHN Q2H PRN PRN Reason: Shortness of Breath Stop: 04/29/17 03:59 Ascorbic Acid (Vitamin C) 500 mg PO DAILY [facility] Stop: 04/29/17 08:59 Last Admin: 03/05/17 10:27 Dose: Not Given Cholecalciferol (Vitamin D3) 2,000 iu PO DAILY [facility] Stop: 04/29/17 08:59 Last Admin: 03/05/17 10:26 Dose: Not Given Diphenhydramine HCl (Benadryl) 25 mg PO Q6H PRN PRN Reason: Itching Stop: 04/29/17 03:39 Escitalopram Oxalate (Lexapro) 10 mg PO DAILY [facility] PRN Reason: Protocol Stop: 04/29/17 08:59 Last Admin: 03/05/17 10:26 Dose: Not Given Famotidine (Pepcid) 20 mg IVP DAILY [facility] Stop: 05/01/17 08:59 Last Admin: 03/05/17 10:25 Dose: 20 mg Fludrocortisone Acetate (Florinef) 0.1 mg PO BID [facility] Stop: 04/29/17 08:59 Last Admin: 03/05/17 12:05 Dose: Not Given Diltiazem HCl 125 mg/ Dextrose 125 mls @ 10 mls/hr IV TITR [facility]; 10 MG/HR PRN Reason: Protocol Stop: 04/29/17 04:14 Last Titration: 03/02/17 09:20 Dose: 0 mg/hr, 0 mls/hr Tigecycline 50 mg/ Sodium (Chloride) 100 mls @ 100 mls/hr IV Q12H [facility] Stop: 04/30/17 11:29 Last Admin: 03/05/17 12:11 Dose: 100 mls/hr Meropenem 500 mg/ Sodium (Chloride) 100 mls @ 100 mls/hr IV Q12H [facility] Stop: 04/30/17 11:44 Last Admin: 03/05/17 01:21 Dose: 100 mls/hr Norepinephrine Bitartrate 8 mg (/ Dextrose) 250 mls @ 0 mls/hr IV TITR PRN; Protocol; 0 MCG/MIN PRN Reason: BP MAINTENANCE (PER PROTOCOL) Stop: 05/01/17 14:16 Last Titration: 03/03/17 19:45 Dose: 2 mcg/min, 3.75 mls/hr Multivitamins/Minerals 10 ml/Amino Acids/Electrolytes/ Fat Emulsion Intravenous / Dextrose 1,440 mls @ 60 mls/hr IV .Q24H [facility] Stop: 05/02/17 15:59 Last Admin: 03/04/17 18:18 Dose: 60 mls/hr Amikacin Sulfate 600 mg/ (Dextrose) 102.4 mls @ 100 mls/hr IV Q36H [facility] Stop: 05/05/17 20:59 Insulin Aspart (Novolog Insulin Sliding Scale) 0 units SUBQ Q6HR [facility] PRN Reason: Protocol Stop: 05/03/17 00:00 Last Admin: 03/05/17 05:46 Dose: Not Given Lactobacillus Rhamnosus (Culturelle) 1 each PO DAILY [facility] Stop: 05/01/17 08:59 Last Admin: 03/05/17 10:27 Dose: Not Given Metoprolol Tartrate (Lopressor) 50 mg PO Q12HR [facility] Stop: 04/29/17 08:59 Last Admin: 03/05/17 10:28 Dose: Not Given Miconazole Nitrate (Miconazole 2% Cream) 1 appl VG BID [facility] Stop: 03/07/17 08:59 Last Admin: 03/04/17 13:30 Dose: 1 appl Miscellaneous (Clinical Monitoring) 1 ea MC DAILY PRN PRN Reason: RENAL Stop: 04/29/17 10:50 Miscellaneous (Vte Chemical Prophylaxis Screen/ Admission) 1 ea PRN PRN PRN Reason: PROTOCOL Stop: 04/29/17 15:40 Miscellaneous (Probiotic Screen) 1 ea PRN PRN PRN Reason: PROTOCOL Stop: 04/30/17 10:56 Miscellaneous (Tpn Per Pharmacy) 1 ea PRN PRN PRN Reason: PROTOCOL Stop: 04/30/17 18:13 Miscellaneous (Meropenem [Meropenem]) 500 mg IV DAILY [facility] Stop: 05/05/17 08:59 Morphine Sulfate (Morphine) 2 mg IVP Q4HR PRN PRN Reason: Pain (Moderate) Stop: 04/28/17 23:23 Last Admin: 03/05/17 10:46 Dose: 2 mg Zinc Sulfate (Zinc Sulfate) 220 mg PO DAILY [facility] Stop: 04/29/17 08:59 Last Admin: 03/05/17 10:27 Dose: Not Given General: Mild distress, Other (stuporous), no Alert HEENT: Atraumatic, PERRLA, EOMI, Mucous membr. moist/pink Neck: Supple, +2 carotid pulse wo bruit Cardiovascular: Regular rate, Normal S1, Normal S2, Other (irregularly irregular.) Lungs: Other (few rhonchi) Abdomen: Bowel sounds, Soft, Obese, Other (multiple abd wounds, w/ wound vac.) Extremities: Other (ecchymosis, hematomas, petecchiae), no Edema Neurological: Sensation intact, Other (stuporous) Skin: Rash, Breakdown (multiple blisters), Significant lesion (multiple bruises and ecchymosis, ischemic wounds.) Psych/Mental Status: Mood NL, Other (stuporous) Assessment/Plan - Assessment Assessment: ESRD on HD Acute on chronic nonhealing abdominal wounds status post debridement Severe malnutrition Obesity hypoventilation syndrome Morbid obesity Type 2 diabetes mellitus Essential hypertension Anemia of chronic kidney disease Chronic atrial fibrillation Coronary artery disease 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 - Plan Plan: Lab - Result Diagrams 03/01/17 04:30 03/01/17 04:30 Current Medications Albuterol Sulfate (Albuterol 2.5mg/3ml Neb Ud) 2.5 mg HHN Q2H PRN PRN Reason: Shortness of Breath Stop: 04/29/17 03:59 Ascorbic Acid (Vitamin C) 500 mg PO DAILY [facility] Stop: 04/29/17 08:59 Last Admin: 03/01/17 08:51 Dose: Not Given Cholecalciferol (Vitamin D3) 2,000 iu PO DAILY [facility] Stop: 04/29/17 08:59 Last Admin: 03/01/17 08:51 Dose: Not Given Diphenhydramine HCl (Benadryl) 25 mg PO Q6H PRN PRN Reason: Itching Stop: 04/29/17 03:39 Escitalopram Oxalate (Lexapro) 10 mg PO DAILY [facility] PRN Reason: Protocol Stop: 04/29/17 08:59 Last Admin: 03/01/17 08:52 Dose: Not Given Famotidine (Pepcid) 20 mg PO BID [facility] Stop: 04/29/17 08:59 Last Admin: 03/01/17 08:52 Dose: Not Given Fludrocortisone Acetate (Florinef) 0.1 mg PO BID [facility] Stop: 04/29/17 08:59 Last Admin: 03/01/17 08:52 Dose: Not Given Norepinephrine Bitartrate 4 mg (/ Dextrose) 254 mls @ 0 mls/hr IV TITR PRN; Protocol; Per Protocol PRN Reason: BP MAINTENANCE (PER PROTOCOL) Stop: 04/28/17 23:29 Last Admin: 03/01/17 12:31 Dose: 1.5 mcg/min, 5.71 mls/hr Clindamycin Phosphate (Cleocin Pb) 600 mg in 50 mls @ 100 mls/hr IV Q8HR [facility] Stop: 04/29/17 04:59 Last Admin: 03/01/17 06:07 Dose: 100 mls/hr Diltiazem HCl 125 mg/ Dextrose 125 mls @ 10 mls/hr IV TITR [facility]; 10 MG/HR PRN Reason: Protocol Stop: 04/29/17 04:14 Last Admin: 03/01/17 06:47 Dose: 10 mg/hr, 10 mls/hr Gentamicin Sulfate 160 mg/ (Sodium Chloride) 104 mls @ 200 mls/hr IV Q48H [facility] Stop: 04/30/17 08:59 Last Admin: 03/01/17 09:00 Dose: 200 mls/hr Dextrose/Sodium Chloride (D5-0.45ns) 1,000 mls @ 75 mls/hr IV .[id number] [facility] Stop: 04/29/17 13:08 Last Admin: 03/01/17 05:37 Dose: 75 mls/hr Levofloxacin (Levaquin Pb) 250 mg in 50 mls @ 50 mls/hr IV Q48HR [facility] Stop: 04/29/17 16:59 Last Infusion: 02/28/17 18:15 Dose: Infused Lactobacillus Rhamnosus (Culturelle) 1 each PO DAILY [facility] Stop: 04/29/17 08:59 Last Admin: 03/01/17 08:53 Dose: Not Given Lactobacillus Rhamnosus (Culturelle) 1 each PO DAILY [facility] Stop: 05/01/17 08:59 Metoprolol Tartrate (Lopressor) 50 mg PO Q12HR [facility] Stop: 04/29/17 08:59 Last Admin: 03/01/17 08:53 Dose: Not Given Miconazole Nitrate (Miconazole 2% Cream) 1 appl VG BID [facility] Stop: 03/07/17 08:59 Last Admin: 03/01/17 08:53 Dose: 1 appl Miscellaneous (Clinical Monitoring) 1 ea DAILY PRN PRN Reason: RENAL Stop: 04/29/17 10:50 Miscellaneous (Vte Chemical Prophylaxis Screen/ Admission) 1 ea PRN PRN PRN Reason: PROTOCOL Stop: 04/29/17 15:40 Miscellaneous (Probiotic Screen) 1 ea PRN PRN PRN Reason: PROTOCOL Stop: 04/30/17 10:56 Morphine Sulfate (Morphine) 2 mg IVP Q4HR PRN PRN Reason: Pain (Moderate) Stop: 04/28/17 23:23 Last Admin: 03/01/17 03:00 Dose: 2 mg Phytonadione (Mephyton) 10 mg PO TID [facility] Stop: 03/03/17 13:59 Last Admin: 03/01/17 08:54 Dose: Not Given Sevelamer HCl (Renagel) 800 mg PO TIDWM [facility] Stop: 04/30/17 07:59 Last Admin: 03/01/17 08:50 Dose: Not Given Zinc Sulfate (Zinc Sulfate) 220 mg PO DAILY [facility] Stop: 04/29/17 08:59 Last Admin: 03/01/17 08:54 Dose: Not Given Dialyzed Sat & tolerated it well off Levophed on TPN @ 60 ml/hr just had sharp debridement WBC 16.6; Hgb/Hct improved to 10.1/30.1, plts down to 28 T. Rafael up to 4.1, mostly D. Rafael schedule for HD in am Nutritional Asmnt/Malnutr-PDOC - Dietary Evaluation Malnutrition Findings (Please click <Entered> for more info): Nutritional Asmnt/Malnutrition Start: 02/28/17 14: 25 Text: Status: Complete Freq: Document 02/28/17 14:32 GSUN (Rec: 02/28/17 14:52 [email or web address]) Nutritional Asmnt/Malnutrition Patient General Information Nutritional Screening High Risk Screening Diagnosis Infectured multiple abdominal wound, sepsis, hypotension Pertinent Medical Hx/Surgical Hx DM, end stage renal failure, obesity, multiple abdominal wound, anemia Subjective Information 71 [address] consult for wounds/calciphylaxis. Pt was lethargic during visit, spoke to at bedside. Briefly explained renal diet, agreeable to plan, not suitble for extensive edu at this time. Pt appeared obese. Pt reported UBW 250lb measured 1 month ago, pt is unsure of dry weight at dialysis center. Pt reported has gradually lost weight 80lb over the past year due to poor appetite and hospitalizations. RD recommended oral supplements, pt denied, stating she has tried and threw up. Current Diet Order/ Nutrition Support Renal, 1800kcal Pertinent Medications Vitamin C, Vitamin D3, D5-0. 45ns, Pepcid, Novolog, Culturelle, Morphine, Zinc Sulfate Pertinent Labs 02/28: BUN 38H, creatinine 5H, phosphorus 5.4H Nutritional Hx/Data Height 1.63 m Height (Calculated Centimeters) 162.6 Current Weight (lbs) 113.398 kg Weight (Calculated Kilograms) 113.4 Weight (Calculated Grams) 102663.1 [place] Body Weight 120 Recent Weight Change Yes Weight Status Morbidly Obese GI Symptoms Skin Integrity/Comment: Bilateral lower extremities pitting 3+. Abdominal wounds/ calciphylaxis Estimated Nutritional Goals BEE in Kcals: Adj wt of IBW Calories/Kcals/Kg AdjBW 152.5lb/69.3kg (adjsuted to UBW) Kcals Calculated 9-2426kcal (30-35kcal/kg) Protein: Adj wt of IBW Protein Calculated 90-104g (1.2-1.5/gkg) Fluid: ml 2079-2426ml (1ml/kcal) Nutritional Problem 3. Problem Problem Malnutrition related to Etiology unknown etiology, energy imbalance aeb Signs/Symptoms: BMI >40 2. Problem Problem Increased kcal and prot needs related to Etiology hypermetabolic state aeb Signs/Symptoms: on HD, sepsis 1. Problem Problem Impaired nutrient utilization related to Etiology end stage renal failure aeb Signs/Symptoms: on HD, BUN 38H, creatinine 5H, phosphorus 5.4H Malnutrition Related to Morbid Obesity Malnutrition related to morbid obesity BMI> or equal to 40 Query Text:(Any 1 Criteria met) Malnutrition related to morbid obesity Yes Intervention/Recommendation Comments 1. Recommend renal diet. Briefly explained renal diet, pt is agreeable to plan. Encourage PO intake. 2. Recommend removing " 1800kcal" restriction as pt is in hypermetabolic state ( sepsis, HD) and obese, requiring more than 1800kcal, weight loss not favorable at this time. 3. Pt reported poor appetite many months, RD recommend oral supplements, pt declined. Expected Outcomes/Goals Expected Outcomes/Goals 1. PO intake to meet at least 75% of estimated nutritional needs.
[2017-03-05] MEDS: MICONAZOLE 2% VG SCH ×2 (14:21→17:53)
[2017-03-05] MEDS: Venelex 60gm Tube TP SCH (14:22)
[2017-03-05] MEDS: AMINO ACIDS IV SCH (17:14)
[2017-03-05] MEDS: INTRALIPIDS IV SCH (17:14)
[2017-03-05] MEDS: MULTIVITAMIN IV SCH (17:14)
[2017-03-05] MEDS: [UNRECOGNIZED DRUG - OTHER] IV SCH (17:14)
[2017-03-05] MEDS: ELECTROLYTES IV SCH (17:14)
[2017-03-05] MEDS: Albuterol Nebulizer 2.5mg/3mL HHN PRN ×2 (17:45→19:08)
--- NOTE | 2017-03-05 20:13 | General Progress Note ---
Subjective - Review of Systems Service Date: 03/05/17 Events since last encounter: ER CONSULT CALL TO SEE THE PATIENT AND INTUBATE FOR ABNORMAL BREATHING PATTERN THE PATIENT WAS GIVEN BEV CHOLINE 100MG THE PATIENT WAS INTUBATED WITH A NUMBER 7.5 TUBE THE PATIENT WAS PLACED ON A VENTILATOR WITH FIO OF 100%, RATE =12, AD=636 THE BLOOD GAS WAS TO DONE 1/2/ HOUR AFTER INTUBATION Objective - Results Result Diagrams: 03/05/17 07:45 03/05/17 07:45 Recent Labs: Laboratory Last Values WBC 16.6 Th/cmm (4.8-10.8) H 03/05/17 07:45 RBC 3.31 Mil/cmm (3.80-5.20) L 03/05/17 07:45 Hgb 10.1 gm/dL (11.7-16.1) L D 03/05/17 07:45 Hct 30.1 % (35.0-45.0) L D 03/05/17 07:45 MCV 90.9 fl (81-100) 03/05/17 07:45 MCH 30.6 pg (27.0-31.0) 03/05/17 07:45 MCHC Differential 33.7 pg (28.0-36.0) 03/05/17 07:45 RDW 16.1 % (11.5-20.0) 03/05/17 07:45 Plt Count 28 Th/cmm (150-400) L* 03/05/17 07:45 MPV 8.4 fl 03/05/17 07:45 Neutrophils % 82.3 % (40.0-80.0) H 03/04/17 05:20 Band Neutrophils % 4 % (0-10) 03/05/17 07:45 Lymphocytes % 11.2 % (20.0-50.0) L 03/04/17 05:20 Monocytes % 5.3 % (2.0-10.0) 03/04/17 05:20 Eosinophils % 1.1 % (0.0-5.0) 03/04/17 05:20 Basophils % 0.1 % (0.0-2.0) 03/04/17 05:20 Neutrophils (Manual) 78 % (40-80) 03/05/17 07:45 Lymphocytes 12 % (20-50) L 03/05/17 07:45 Monocytes 6 % (2-10) 03/05/17 07:45 Eosinophils 2 % (0-5) 03/01/17 12:26 Basophils 1 % (0-3) 03/01/17 12:26 Metamyelocytes 1 % (0-0) H 03/02/17 05:36 Hypochromia 1+ 03/03/17 06:29 Platelet Estimate DECREASED PLATELETS (NORMAL) 03/05/17 07:45 Platelet Morphology NORMAL (NORMAL) 03/02/17 05:36 Polychromasia 1+ 03/03/17 06:29 Poikilocytosis 1+ 03/03/17 06:29 Anisocytosis 1+ 03/03/17 06:29 RBC Morph Micro Appear ABNORMAL (NORMAL) 03/02/17 05:36 PT 25.3 SECONDS (9.5-11.5) H 03/02/17 05:36 INR 2.32 (0.5-1.4) H 03/02/17 05:36 PTT (Actin FS) 90.5 SECONDS (26.0-38.0) H* 03/02/17 05:36 Sodium 129 mEq/L (136-145) L 03/05/17 07:45 Potassium 4.2 mEq/L (3.5-5.1) 03/05/17 07:45 Chloride 100 mEq/L (98-107) 03/05/17 07:45 Carbon Dioxide 22.7 mEq/L (21.0-31.0) 03/05/17 07:45 Anion Gap 10.5 (7.0-16.0) 03/05/17 07:45 BUN 38 mg/dL (7-25) H 03/05/17 07:45 Creatinine 4.0 mg/dL (0.6-1.2) H 03/05/17 07:45 Est GFR ( Amer) 14.3 ml/min (>90) 03/05/17 07:45 Est GFR (Non-Af Amer) 11.8 ml/min 03/05/17 07:45 BUN/Creatinine Ratio 9.5 03/05/17 07:45 Glucose 122 mg/dL (70-105) H 03/05/17 07:45 POC Glucose 130 MG/DL (70 - 105) H 03/05/17 16:27 Hemoglobin A1c % 4.6 % (4.0-6.0) 02/27/17 19:30 Whole Bld Lactic Acid 1.39 mmol/L (0.60-1.99) 03/01/17 15:56 Calcium 8.4 mg/dL (8.6-10.3) L 03/05/17 07:45 Phosphorus 4.5 mg/dL (2.5-5.0) 03/05/17 07:45 Magnesium 2.2 mg/dL (1.9-2.7) 03/05/17 07:45 Total Bilirubin 4.1 mg/dL (0.3-1.0) H 03/05/17 07:45 Direct Bilirubin 1.98 mg/dL (0.0-0.2) H 03/02/17 05:36 AST 30 U/L (13-39) 03/05/17 07:45 ALT 7 U/L (7-52) 03/05/17 07:45 Alkaline Phosphatase 132 U/L (34-104) H 03/05/17 07:45 Total Protein 5.3 gm/dL (6.0-8.3) L 03/05/17 07:45 Albumin 2.3 gm/dL (3.7-5.3) L 03/05/17 07:45 Globulin 3.0 gm/dL 03/05/17 07:45 Albumin/Globulin Ratio 0.8 (1.0-1.8) L 03/05/17 07:45 Prealbumin <3 mg/dL (10-36) L 03/03/17 06:29 Triglycerides 112 mg/dL (<150) 03/03/17 06:29 Cholesterol < 25 mg/dL (<200) 03/05/17 07:45 Gentamicin Peak 8.8 ug/ml (4.0-8.0) 03/01/17 10:00 Gentamicin Trough ug/ml (0.2-2.0) 03/01/17 08:30 Serum Ketones NEGATIVE (NEGATIVE) 02/27/17 19:30 Hepatitis A IgM Ab Negative (Negative) 03/02/17 05:36 Hep Bs Antigen Negative (Negative) 03/02/17 05:36 Hep B Core IgM Ab Negative (Negative) 03/02/17 05:36 Hepatitis C Antibody <0.1 s/co ratio (0.0-0.9) 03/02/17 05:36 Blood Type A POSITIVE 03/03/17 09:10 Antibody Screen NEGATIVE 03/03/17 09:10 Crossmatch See Detail 03/03/17 09:10 - Physical Exam Vitals and I&O: Vital Signs Temp 96.8 F 03/05/17 16:00 Pulse 104 03/05/17 19:10 Resp 31 03/05/17 19:10 BP 100/60 03/05/17 19:00 Pulse Ox 100 03/05/17 19:10 Active Medications: Current Medications Acetaminophen/Hydrocodone Bitart ([place] 10 Mg/325 Mg) 1 tab PO Q6H PRN PRN Reason: Pain (Moderate) Stop: 05/04/17 09:27 Albuterol Sulfate (Albuterol 2.5mg/3ml Neb Ud) 2.5 mg HHN Q2H PRN PRN Reason: Shortness of Breath Stop: 04/29/17 03:59 Last Admin: 03/05/17 19:08 Dose: 2.5 mg Ascorbic Acid (Vitamin C) 500 mg PO DAILY [facility] Stop: 04/29/17 08:59 Last Admin: 03/05/17 10:27 Dose: Not Given Cholecalciferol (Vitamin D3) 2,000 iu PO DAILY [facility] Stop: 04/29/17 08:59 Last Admin: 03/05/17 10:26 Dose: Not Given Diphenhydramine HCl (Benadryl) 25 mg PO Q6H PRN PRN Reason: Itching Stop: 04/29/17 03:39 Escitalopram Oxalate (Lexapro) 10 mg PO DAILY [facility] PRN Reason: Protocol Stop: 04/29/17 08:59 Last Admin: 03/05/17 10:26 Dose: Not Given Famotidine (Pepcid) 20 mg IVP DAILY [facility] Stop: 05/01/17 08:59 Last Admin: 03/05/17 10:25 Dose: 20 mg Fludrocortisone Acetate (Florinef) 0.1 mg PO BID [facility] Stop: 04/29/17 08:59 Last Admin: 03/05/17 17:54 Dose: Not Given Heparin Sodium (Porcine) (Heparin) 5,000 units SUBQ Q12HR [facility] Stop: 05/04/17 20:59 Diltiazem HCl 125 mg/ Dextrose 125 mls @ 10 mls/hr IV TITR [facility]; 10 MG/HR PRN Reason: Protocol Stop: 04/29/17 04:14 Last Titration: 03/02/17 09:20 Dose: 0 mg/hr, 0 mls/hr Tigecycline 50 mg/ Sodium (Chloride) 100 mls @ 100 mls/hr IV Q12H [facility] Stop: 04/30/17 11:29 Last Admin: 03/05/17 12:11 Dose: 100 mls/hr Norepinephrine Bitartrate 8 mg (/ Dextrose) 250 mls @ 0 mls/hr IV TITR PRN; Protocol; 0 MCG/MIN PRN Reason: BP MAINTENANCE (PER PROTOCOL) Stop: 05/01/17 14:16 Last Titration: 03/03/17 19:45 Dose: 2 mcg/min, 3.75 mls/hr Multivitamins/Minerals 10 ml/Amino Acids/Electrolytes/ Fat Emulsion Intravenous / Dextrose 1,440 mls @ 60 mls/hr IV .Q24H [facility] Stop: 05/02/17 15:59 Last Admin: 03/05/17 17:14 Dose: 60 mls/hr Albumin Human (Albuminar 25%) 25 gm in 100 mls @ 50 mls/hr IV X1 ONE Stop: 03/06/17 15:25 Albumin Human (Albuminar 25%) 25 gm in 100 mls @ 50 mls/hr IV X1 ONE Stop: 03/06/17 15:26 Amikacin Sulfate 300 mg/ (Dextrose) 101.2 mls @ 100 mls/hr IV PRN PRN PRN Reason: AFTER EACH DIALYSIS Stop: 05/05/17 14:59 Meropenem 500 mg/ Sodium (Chloride) 100 mls @ 100 mls/hr IV Q24H [facility] Stop: 05/05/17 08:59 Insulin Aspart (Novolog Insulin Sliding Scale) 0 units SUBQ Q6HR [facility] PRN Reason: Protocol Stop: 05/03/17 00:00 Last Admin: 03/05/17 17:45 Dose: Not Given Lactobacillus Rhamnosus (Culturelle) 1 each PO DAILY [facility] Stop: 05/01/17 08:59 Last Admin: 03/05/17 10:27 Dose: Not Given Metoprolol Tartrate (Lopressor) 50 mg PO Q12HR [facility] Stop: 04/29/17 08:59 Last Admin: 03/05/17 10:28 Dose: Not Given Miconazole Nitrate (Miconazole 2% Cream) 1 appl VG BID [facility] Stop: 03/07/17 08:59 Last Admin: 03/05/17 17:53 Dose: Not Given Miscellaneous (Clinical Monitoring) 1 ea MC DAILY PRN PRN Reason: RENAL Stop: 04/29/17 10:50 Miscellaneous (Vte Chemical Prophylaxis Screen/ Admission) 1 ea MC PRN PRN PRN Reason: PROTOCOL Stop: 04/29/17 15:40 Miscellaneous (Probiotic Screen) 1 ea MC PRN PRN PRN Reason: PROTOCOL Stop: 04/30/17 10:56 Miscellaneous (Tpn Per Pharmacy) 1 ea MC PRN PRN PRN Reason: PROTOCOL Stop: 04/30/17 18:13 Morphine Sulfate (Morphine) 2 mg IVP Q4HR PRN PRN Reason: Pain (Moderate) Stop: 04/28/17 23:23 Last Admin: 03/05/17 17:48 Dose: 2 mg Zinc Sulfate (Zinc Sulfate) 220 mg PO DAILY [facility] Stop: 04/29/17 08:59 Last Admin: 03/05/17 10:27 Dose: Not Given General: Mild distress, Other (stuporous), no Alert HEENT: Atraumatic, PERRLA, EOMI, Mucous membr. moist/pink Neck: Supple, +2 carotid pulse wo bruit Cardiovascular: Regular rate, Normal S1, Normal S2, Other (irregularly irregular.) Lungs: Other (few rhonchi) Abdomen: Bowel sounds, Soft, Obese, Other (multiple abd wounds, w/ wound vac.) Extremities: Other (ecchymosis, hematomas, petecchiae), no Edema Neurological: Sensation intact, Other (stuporous) Skin: Rash, Breakdown (multiple blisters), Significant lesion (multiple bruises and ecchymosis, ischemic wounds.) Psych/Mental Status: Mood NL, Other (stuporous)
--- NOTE | 2017-03-05 21:19 | Consultation ---
DATE OF CONSULTATION: 03/05/2017 REFERRING PHYSICIAN: Dr. Velazquez. REASON FOR CONSULTATION: Thrombocytopenia, deep vein thrombosis. HISTORY OF PRESENT ILLNESS: The patient is a 71-year-old female with multiple medical problems. She was admitted through the emergency room with hypertension. She had changes in mental status today and she is not able to communicate or respond to any questions. Apparently, the patient was more responsive in the past few days per my communication with the staff. The patient is known to me from previous evaluation in [facility] where she was extensively worked up with for evaluation of heparin-induced thrombocytopenia and workup was negative. Therefore, she was continued on anticoagulation with Coumadin for extensive and recurrent deep vein thrombosis despite treatment with apixaban. The patient had debridement of the abdominal wound today by Dr. Hraris. PAST MEDICAL HISTORY: Hypertension, diabetes, chronic kidney disease, and abdominal wounds. SURGICAL HISTORY: Wound debridement in the past. MEDICATIONS: Reviewed. The patient was not on heparin or anticoagulation. PHYSICAL EXAMINATION: GENERAL: She is not awake. She is not responding to verbal or painful stimuli. The patient was abbreviated and intubation is being contemplated now. EXTREMITIES: Right chest ____ right arm PICC line, extensive ecchymosis on both upper and lower extremities with the wound on the lower extremity medially and lower abdominal wounds with the soaking of the dressing. LABORATORY DATA: White count 16.6, hemoglobin 10.1, platelets 28,000, creatinine 4, and bilirubin 4.1. ASSESSMENT AND PLAN: Excessive deep vein thrombosis, bilateral jugular veins and left axillary vein which failed apixaban in the past. The patient was previously anticoagulated with Coumadin and she has not been anticoagulated since admission. Now, she has multiple organ failure and altered level of consciousness, being intubated. The drop in the platelets is most likely secondary to continued consumption in the progressive thrombosis, thus not anticoagulated. I will start heparin low dose and transfuse platelets. The patient does not have heparin-induced thrombocytopenia, and the heparin allergy should be removed from her records. For other medical problems, the patient is followed by the harmonica maker, analytic programmer, and the sheet writer. The overall prognosis is poor and condition is critical. Thank you for the opportunity to participate in the care of this interesting case with you. JOB# [id number]
[2017-03-05] MEDS ORDERED: Norepinephrine 4 mg/4mL Vial IV ONE (22:19)
--- NOTE | 2017-03-05 23:52 | Infectious Disease Prog Note ---
Infectious Disease Subjective - Review of Systems Service Date: 03/05/17 Subjective: confused, off levophed. No fever. Debridement was performed today. Infectious Disease Objective - Results Result Diagrams: 03/05/17 07:45 03/05/17 07:45 Recent Labs: Laboratory Last Values WBC 16.6 Th/cmm (4.8-10.8) H 03/05/17 07:45 RBC 3.31 Mil/cmm (3.80-5.20) L 03/05/17 07:45 Hgb 10.1 gm/dL (11.7-16.1) L D 03/05/17 07:45 Hct 30.1 % (35.0-45.0) L D 03/05/17 07:45 MCV 90.9 fl (81-100) 03/05/17 07:45 MCH 30.6 pg (27.0-31.0) 03/05/17 07:45 MCHC Differential 33.7 pg (28.0-36.0) 03/05/17 07:45 RDW 16.1 % (11.5-20.0) 03/05/17 07:45 Plt Count 28 Th/cmm (150-400) L* 03/05/17 07:45 MPV 8.4 fl 03/05/17 07:45 Neutrophils % 82.3 % (40.0-80.0) H 03/04/17 05:20 Band Neutrophils % 4 % (0-10) 03/05/17 07:45 Lymphocytes % 11.2 % (20.0-50.0) L 03/04/17 05:20 Monocytes % 5.3 % (2.0-10.0) 03/04/17 05:20 Eosinophils % 1.1 % (0.0-5.0) 03/04/17 05:20 Basophils % 0.1 % (0.0-2.0) 03/04/17 05:20 Neutrophils (Manual) 78 % (40-80) 03/05/17 07:45 Lymphocytes 12 % (20-50) L 03/05/17 07:45 Monocytes 6 % (2-10) 03/05/17 07:45 Eosinophils 2 % (0-5) 03/01/17 12:26 Basophils 1 % (0-3) 03/01/17 12:26 Metamyelocytes 1 % (0-0) H 03/02/17 05:36 Hypochromia 1+ 03/03/17 06:29 Platelet Estimate DECREASED PLATELETS (NORMAL) 03/05/17 07:45 Platelet Morphology NORMAL (NORMAL) 03/02/17 05:36 Polychromasia 1+ 03/03/17 06:29 Poikilocytosis 1+ 03/03/17 06:29 Anisocytosis 1+ 03/03/17 06:29 RBC Morph Micro Appear ABNORMAL (NORMAL) 03/02/17 05:36 PT 25.3 SECONDS (9.5-11.5) H 03/02/17 05:36 INR 2.32 (0.5-1.4) H 03/02/17 05:36 PTT (Actin FS) 90.5 SECONDS (26.0-38.0) H* 03/02/17 05:36 Sodium 129 mEq/L (136-145) L 03/05/17 07:45 Potassium 4.2 mEq/L (3.5-5.1) 03/05/17 07:45 Chloride 100 mEq/L (98-107) 03/05/17 07:45 Carbon Dioxide 22.7 mEq/L (21.0-31.0) 03/05/17 07:45 Anion Gap 10.5 (7.0-16.0) 03/05/17 07:45 BUN 38 mg/dL (7-25) H 03/05/17 07:45 Creatinine 4.0 mg/dL (0.6-1.2) H 03/05/17 07:45 Est GFR ( Amer) 14.3 ml/min (>90) 03/05/17 07:45 Est GFR (Non-Af Amer) 11.8 ml/min 03/05/17 07:45 BUN/Creatinine Ratio 9.5 03/05/17 07:45 Glucose 122 mg/dL (70-105) H 03/05/17 07:45 POC Glucose 130 MG/DL (70 - 105) H 03/05/17 16:27 Hemoglobin A1c % 4.6 % (4.0-6.0) 02/27/17 19:30 Whole Bld Lactic Acid 1.39 mmol/L (0.60-1.99) 03/01/17 15:56 Calcium 8.4 mg/dL (8.6-10.3) L 03/05/17 07:45 Phosphorus 4.5 mg/dL (2.5-5.0) 03/05/17 07:45 Magnesium 2.2 mg/dL (1.9-2.7) 03/05/17 07:45 Total Bilirubin 4.1 mg/dL (0.3-1.0) H 03/05/17 07:45 Direct Bilirubin 1.98 mg/dL (0.0-0.2) H 03/02/17 05:36 AST 30 U/L (13-39) 03/05/17 07:45 ALT 7 U/L (7-52) 03/05/17 07:45 Alkaline Phosphatase 132 U/L (34-104) H 03/05/17 07:45 Total Protein 5.3 gm/dL (6.0-8.3) L 03/05/17 07:45 Albumin 2.3 gm/dL (3.7-5.3) L 03/05/17 07:45 Globulin 3.0 gm/dL 03/05/17 07:45 Albumin/Globulin Ratio 0.8 (1.0-1.8) L 03/05/17 07:45 Prealbumin <3 mg/dL (10-36) L 03/03/17 06:29 Triglycerides 112 mg/dL (<150) 03/03/17 06:29 Cholesterol < 25 mg/dL (<200) 03/05/17 07:45 Gentamicin Peak 8.8 ug/ml (4.0-8.0) 03/01/17 10:00 Gentamicin Trough ug/ml (0.2-2.0) 03/01/17 08:30 Serum Ketones NEGATIVE (NEGATIVE) 02/27/17 19:30 Hepatitis A IgM Ab Negative (Negative) 03/02/17 05:36 Hep Bs Antigen Negative (Negative) 03/02/17 05:36 Hep B Core IgM Ab Negative (Negative) 03/02/17 05:36 Hepatitis C Antibody <0.1 s/co ratio (0.0-0.9) 03/02/17 05:36 Blood Type A POSITIVE 03/03/17 09:10 Antibody Screen NEGATIVE 03/03/17 09:10 Crossmatch See Detail 03/03/17 09:10 - Physical Exam Vitals and I&O: Vital Signs Temp 96.8 F 03/05/17 16:00 Pulse 104 03/05/17 23:15 Resp 31 03/05/17 19:10 BP 76/48 03/05/17 21:50 Pulse Ox 100 03/05/17 23:15 Intake & Output 03/05/17 03/05/17 03/06/17 06:59 18:59 06:59 Intake Total 1420 1446 Output Total 100 Balance 1320 1446 Weight (lbs) 123.15 kg 131.3 kg 130.635 kg Intake: Intake, IV Amount 200 1376 Meropenem 500 mg In 100 Sodium Chloride 0.9% 100 ml @ 100 mls/hr IV Q12H [facility] Rx#:[id number] Multivitamin Inj 10 ml In 1376 Amino Acids 3% / Electrolytes 700 ml In Intralipids 20% 50 ml In Dextrose 10% 680 ml @ 60 mls/hr IV .Q24H [facility] Rx#: [id number] Tigecycline 50 mg In 100 Sodium Chloride 0.9% 100 ml @ 100 mls/hr IV Q12H [facility] Rx#:[id number] TPN/PPN 720 70 Blood Product 500 Output: Drainage 100 Left Lower Abdomen 50 Right Lower Abdomen 50 Active Medications: Current Medications Acetaminophen/Hydrocodone Bitart ([place] 10 Mg/325 Mg) 1 tab PO Q6H PRN PRN Reason: Pain (Moderate) Stop: 05/04/17 09:27 Albuterol Sulfate (Albuterol 2.5mg/3ml Neb Ud) 2.5 mg HHN Q2H PRN PRN Reason: Shortness of Breath Stop: 04/29/17 03:59 Last Admin: 03/05/17 19:08 Dose: 2.5 mg Albuterol/Ipratropium (Duoneb Neb) 3 ml HHN Q4HRT [facility] Stop: 05/04/17 22:59 Ascorbic Acid (Vitamin C) 500 mg PO DAILY [facility] Stop: 04/29/17 08:59 Last Admin: 03/05/17 10:27 Dose: Not Given Budesonide (Pulmicort) 0.25 mg HHN BIDRT [facility] Stop: 05/05/17 06:59 Cholecalciferol (Vitamin D3) 2,000 iu PO DAILY [facility] Stop: 04/29/17 08:59 Last Admin: 03/05/17 10:26 Dose: Not Given Diphenhydramine HCl (Benadryl) 25 mg PO Q6H PRN PRN Reason: Itching Stop: 04/29/17 03:39 Escitalopram Oxalate (Lexapro) 10 mg PO DAILY [facility] PRN Reason: Protocol Stop: 04/29/17 08:59 Last Admin: 03/05/17 10:26 Dose: Not Given Famotidine (Pepcid) 20 mg IVP DAILY [facility] Stop: 05/01/17 08:59 Last Admin: 03/05/17 10:25 Dose: 20 mg Fludrocortisone Acetate (Florinef) 0.1 mg PO BID [facility] Stop: 04/29/17 08:59 Last Admin: 03/05/17 17:54 Dose: Not Given Heparin Sodium (Porcine) (Heparin) 5,000 units SUBQ Q12HR [facility] Stop: 05/04/17 20:59 Diltiazem HCl 125 mg/ Dextrose 125 mls @ 10 mls/hr IV TITR [facility]; 10 MG/HR PRN Reason: Protocol Stop: 04/29/17 04:14 Last Titration: 03/02/17 09:20 Dose: 0 mg/hr, 0 mls/hr Tigecycline 50 mg/ Sodium (Chloride) 100 mls @ 100 mls/hr IV Q12H [facility] Stop: 04/30/17 11:29 Last Admin: 03/05/17 12:11 Dose: 100 mls/hr Multivitamins/Minerals 10 ml/Amino Acids/Electrolytes/ Fat Emulsion Intravenous / Dextrose 1,440 mls @ 60 mls/hr IV .Q24H [facility] Stop: 05/02/17 15:59 Last Admin: 03/05/17 17:14 Dose: 60 mls/hr Albumin Human (Albuminar 25%) 25 gm in 100 mls @ 50 mls/hr IV X1 ONE Stop: 03/06/17 15:25 Albumin Human (Albuminar 25%) 25 gm in 100 mls @ 50 mls/hr IV X1 ONE Stop: 03/06/17 15:26 Amikacin Sulfate 300 mg/ (Dextrose) 101.2 mls @ 100 mls/hr IV PRN PRN PRN Reason: AFTER EACH DIALYSIS Stop: 05/05/17 14:59 Meropenem 500 mg/ Sodium (Chloride) 100 mls @ 100 mls/hr IV Q24H [facility] Stop: 05/05/17 08:59 Norepinephrine Bitartrate 4 mg (/ Dextrose) 254 mls @ 142.87 mls/hr IV TITR PRN ; Protocol; 37.5 MCG/MIN PRN Reason: BP MAINTENANCE (PER PROTOCOL) Stop: 05/04/17 22:40 Last Admin: 03/05/17 22:51 Dose: 6 mcg/min, 22.86 mls/hr Insulin Aspart (Novolog Insulin Sliding Scale) 0 units SUBQ Q6HR [facility] PRN Reason: Protocol Stop: 05/03/17 00:00 Last Admin: 03/05/17 17:45 Dose: Not Given Lactobacillus Rhamnosus (Culturelle) 1 each PO DAILY [facility] Stop: 05/01/17 08:59 Last Admin: 03/05/17 10:27 Dose: Not Given Lorazepam (Ativan) 2 mg IVP Q4HR PRN; Protocol PRN Reason: Anxiety Stop: 05/04/17 20:17 Metoprolol Tartrate (Lopressor) 50 mg PO Q12HR [facility] Stop: 04/29/17 08:59 Last Admin: 03/05/17 10:28 Dose: Not Given Miconazole Nitrate (Miconazole 2% Cream) 1 appl VG BID [facility] Stop: 03/07/17 08:59 Last Admin: 03/05/17 17:53 Dose: Not Given Miscellaneous (Clinical Monitoring) 1 ea MC DAILY PRN PRN Reason: RENAL Stop: 04/29/17 10:50 Miscellaneous (Vte Chemical Prophylaxis Screen/ Admission) 1 ea MC PRN PRN PRN Reason: PROTOCOL Stop: 04/29/17 15:40 Miscellaneous (Probiotic Screen) 1 ea MC PRN PRN PRN Reason: PROTOCOL Stop: 04/30/17 10:56 Miscellaneous (Tpn Per Pharmacy) 1 ea MC PRN PRN PRN Reason: PROTOCOL Stop: 04/30/17 18:13 Morphine Sulfate (Morphine) 2 mg IVP Q4HR PRN PRN Reason: Pain (Moderate) Stop: 04/28/17 23:23 Last Admin: 03/05/17 17:48 Dose: 2 mg Zinc Sulfate (Zinc Sulfate) 220 mg PO DAILY [facility] Stop: 04/29/17 08:59 Last Admin: 03/05/17 10:27 Dose: Not Given Infectious Disease Assmt/Plan - Assessment Assessment: 1. Leukocytosis , septic shock. 2. Infected lower abdominal wounds, worse on the left. Growing CRE. 3. Calciphylaxis of lower abdomen. 4. Obesity. 5. Dm2 6. CKD 5 on HD. 7. HTN. 8. Anemia of CD. 9. s/p debridement. - Plan Plan: Will Continue tygacil and meropenem IV. wound care. Nutritional Asmnt/Malnutr-PDOC - Dietary Evaluation Malnutrition Findings (Please click <Entered> for more info): Nutritional Asmnt/Malnutrition Start: 02/28/17 14: 25 Text: Status: Complete Freq: Document 02/28/17 14:32 GSUN (Rec: 02/28/17 14:52 [id number]) Nutritional Asmnt/Malnutrition Patient General Information Nutritional Screening High Risk Screening Diagnosis Infectured multiple abdominal wound, sepsis, hypotension Pertinent Medical Hx/Surgical Hx DM, end stage renal failure, obesity, multiple abdominal wound, anemia Subjective Information 71 [address] consult for wounds/calciphylaxis. Pt was lethargic during visit, spoke to at bedside. Briefly explained renal diet, agreeable to plan, not suitble for extensive edu at this time. Pt appeared obese. Pt reported UBW 250lb measured 1 month ago, pt is unsure of dry weight at dialysis center. Pt reported has gradually lost weight 80lb over the past year due to poor appetite and hospitalizations. RD recommended oral supplements, pt denied, stating she has tried and threw up. Current Diet Order/ Nutrition Support Renal, 1800kcal Pertinent Medications Vitamin C, Vitamin D3, D5-0. 45ns, Pepcid, Novolog, Culturelle, Morphine, Zinc Sulfate Pertinent Labs /: BUN 38H, creatinine 5H, phosphorus 5.4H Nutritional Hx/Data Height 1.63 m Height (Calculated Centimeters) 162.6 Current Weight (lbs) 113.398 kg Weight (Calculated Kilograms) 113.4 Weight (Calculated Grams) 362678.1 [place] Body Weight 120 Recent Weight Change Yes Weight Status Morbidly Obese GI Symptoms Skin Integrity/Comment: Bilateral lower extremities pitting 3+. Abdominal wounds/ calciphylaxis Estimated Nutritional Goals BEE in Kcals: Adj wt of IBW Calories/Kcals/Kg AdjBW 152.5lb/69.3kg (adjsuted to UBW) Kcals Calculated 2078-2426kcal (30-35kcal/kg) Protein: Adj wt of IBW Protein Calculated 90-104g (1.2-1.5/gkg) Fluid: ml 2079-2426ml (1ml/kcal) Nutritional Problem 3. Problem Problem Malnutrition related to Etiology unknown etiology, energy imbalance aeb Signs/Symptoms: BMI >40 2. Problem Problem Increased kcal and prot needs related to Etiology hypermetabolic state aeb Signs/Symptoms: on HD, sepsis 1. Problem Problem Impaired nutrient utilization related to Etiology end stage renal failure aeb Signs/Symptoms: on HD, BUN 38H, creatinine 5H, phosphorus 5.4H Malnutrition Related to Morbid Obesity Malnutrition related to morbid obesity BMI> or equal to 40 Query Text:(Any 1 Criteria met) Malnutrition related to morbid obesity Yes Intervention/Recommendation Comments 1. Recommend renal diet. Briefly explained renal diet, pt is agreeable to plan. Encourage PO intake. 2. Recommend removing " 1800kcal" restriction as pt is in hypermetabolic state ( sepsis, HD) and obese, requiring more than 1800kcal, weight loss not favorable at this time. 3. Pt reported poor appetite many months, RD recommend oral supplements, pt declined. Expected Outcomes/Goals Expected Outcomes/Goals 1. PO intake to meet at least 75% of estimated nutritional needs.
[2017-03-06] MEDS: INSULIN ASPART SLIDING SCALE 100 UNITS/ML UNIT SUBQ SCH ×4 (00:05→18:49)
[2017-03-06] MEDS: Morphine Sulfate 2 mg/mL 1mL Syr IVP PRN ×3 (01:14→21:51)
[2017-03-06] MEDS: Albuterol/Ipratropium Neb 3 ML AERS HHN SCH ×6 (03:22→23:30)
[2017-03-06 05:30] LABS: HEMOGLOBIN 8.3 gm/dL (11.7-16.1); MEAN CELL VOLUME 92.3 fl (81-100); MEAN CORPUSCULAR HEMOGLOBIN 32.4 pg (27.0-31.0); MEAN CORPUSCULAR HGB CONC 35.1 pg (28.0-36.0); MEAN PLATELET VOLUME 8.4 fl; RED BLOOD COUNT 2.56 Mil/cmm (3.80-5.20); RED CELL DISTRIBUTION WIDTH 15.8 % (11.5-20.0)
[2017-03-06 05:43] LABS: INR 1.77 (0.5-1.4); PROTHROMBIN TIME (TEST) 18.9 SECONDS (9.5-11.5)
[2017-03-06 05:57] LABS: ANION GAP 14.3 (7.0-16.0); BUN/CREATININE RATIO 10.2; CALCIUM SERUM 8.4 mg/dL (8.6-10.3); CARBON DIOXIDE 19.1 mEq/L (21.0-31.0); MAGNESIUM 2.2 mg/dL (1.9-2.7); PHOSPHOROUS 3.9 mg/dL (2.5-5.0); POTASSIUM SERUM 4.4 mEq/L (3.5-5.1)
[2017-03-06 06:09] LABS: WHITE BLOOD COUNT 23.3 Th/cmm (4.8-10.8)
[2017-03-06 06:10] LABS: HEMATOCRIT 23.6 % (35.0-45.0); PLATELET COUNT 86 Th/cmm (150-400)
[2017-03-06 06:25] LABS: CREATININE - SERUM 4.3 mg/dL (0.6-1.2)
--- NOTE | 2017-03-06 08:19 | Diagnostic Imaging Report ---
Portable chest x-ray HISTORY: Shortness of breath Compared with prior exam performed earlier in the day from the 0930 hours), an endotracheal tube has been inserted. The tip is approximately 3.0 cm above the betzy. The heart remains enlarged. There remains opacification of the left lower hemithorax consistent with a pleural effusion. Evidence of a small right pleural effusion. Pulmonary vascular redistribution and hazy bilateral infiltrates consistent with congestive heart failure and edema. IMPRESSION: 1. New endotracheal tube placement as noted above 2. No change in the cardiopulmonary status consistent with congestive heart failure, bilateral pleural effusions, and pulmonary edema. Underlying pneumonia cannot be excluded. Clinical correlation is needed.
[2017-03-06] MEDS: Budesonide 0.5 Mg/2 mL Ud HHN SCH ×2 (08:20→19:12)
[2017-03-06 08:31] LABS: BAND NEUTROPHILE 5 % (0-10); NEUTROPHILS 79 % (40-80); TOTAL CELLS COUNTED 100
[2017-03-06 08:32] LABS: ANISOCYTOSIS 1+; PLATELET ESTIMATE DECREASED PLATELETS (NORMAL); PLATELET MORPHOLOGY NORMAL (NORMAL); POIKILOCYTOSIS 1+
[2017-03-06] MEDS ORDERED: AMIKACIN IV SCH (09:00)
[2017-03-06] MEDS ORDERED: MEROPENEM 500 MG IV SCH (09:00)
--- NOTE | 2017-03-06 09:35 | General Progress Note ---
Subjective - Review of Systems Subjective: Patient is seen and examined. Patient was intubated due to respiratory distress last evening. Patient's at bedside. I did have an extensive discussion with the him about patient's conditions diagnosis and treatment plan. I had a discussion with him about the treatment she received at the [facility] and need for surgical debridement of her anterior abdominal pannus wound. The patient is currently intubated and sedated. I did have a discussion with RN about patient's condition and treatment plan. Objective - Results Result Diagrams: 03/06/17 04:40 03/06/17 04:40 Recent Labs: Laboratory Last Values WBC 23.3 Th/cmm (4.8-10.8) H* D 03/06/17 04:40 RBC 2.56 Mil/cmm (3.80-5.20) L 03/06/17 04:40 Hgb 8.3 gm/dL (11.7-16.1) L 03/06/17 04:40 Hct 23.6 % (35.0-45.0) L* D 03/06/17 04:40 MCV 92.3 fl (81-100) 03/06/17 04:40 MCH 32.4 pg (27.0-31.0) H 03/06/17 04:40 MCHC Differential 35.1 pg (28.0-36.0) 03/06/17 04:40 RDW 15.8 % (11.5-20.0) 03/06/17 04:40 Plt Count 86 Th/cmm (150-400) L D 03/06/17 04:40 MPV 8.4 fl 03/06/17 04:40 Neutrophils % 82.3 % (40.0-80.0) H 03/04/17 05:20 Band Neutrophils % 5 % (0-10) 03/06/17 04:40 Lymphocytes % 11.2 % (20.0-50.0) L 03/04/17 05:20 Monocytes % 5.3 % (2.0-10.0) 03/04/17 05:20 Eosinophils % 1.1 % (0.0-5.0) 03/04/17 05:20 Basophils % 0.1 % (0.0-2.0) 03/04/17 05:20 Neutrophils (Manual) 79 % (40-80) 03/06/17 04:40 Lymphocytes 11 % (20-50) L 03/06/17 04:40 Monocytes 5 % (2-10) 03/06/17 04:40 Eosinophils 2 % (0-5) 03/01/17 12:26 Basophils 1 % (0-3) 03/01/17 12:26 Metamyelocytes 1 % (0-0) H 03/02/17 05:36 Hypochromia 1+ 03/03/17 06:29 Platelet Estimate DECREASED PLATELETS (NORMAL) 03/06/17 04:40 Platelet Morphology NORMAL (NORMAL) 03/06/17 04:40 Polychromasia 1+ 03/03/17 06:29 Poikilocytosis 1+ 03/06/17 04:40 Anisocytosis 1+ 03/06/17 04:40 RBC Morph Micro Appear ABNORMAL (NORMAL) 03/06/17 04:40 Plt Count 86 Th/cmm (150-750) L 03/06/17 04:40 PT 18.9 SECONDS (9.5-11.5) H 03/06/17 04:40 INR 1.77 (0.5-1.4) H 03/06/17 04:40 PTT (Actin FS) 57.2 SECONDS (26.0-38.0) H 03/06/17 04:40 Fibrinogen 110.0 mg/dL (200.0-400.0) L 03/06/17 04:40 D-Dimer 2170 ng/mL (100-400) H 03/06/17 04:40 Sodium 131 mEq/L (136-145) L 03/06/17 04:40 Potassium 4.4 mEq/L (3.5-5.1) 03/06/17 04:40 Chloride 102 mEq/L (98-107) 03/06/17 04:40 Carbon Dioxide 19.1 mEq/L (21.0-31.0) L 03/06/17 04:40 Anion Gap 14.3 (7.0-16.0) 03/06/17 04:40 BUN 44 mg/dL (7-25) H 03/06/17 04:40 Creatinine 4.3 mg/dL (0.6-1.2) H* 03/06/17 04:40 Est GFR ( Amer) 13.1 ml/min (>90) 03/06/17 04:40 Est GFR (Non-Af Amer) 10.9 ml/min 03/06/17 04:40 BUN/Creatinine Ratio 10.2 03/06/17 04:40 Glucose 100 mg/dL (70-105) 03/06/17 04:40 POC Glucose 77 MG/DL (70 - 105) 03/06/17 06:20 Hemoglobin A1c % 4.6 % (4.0-6.0) 02/27/17 19:30 Whole Bld Lactic Acid 1.39 mmol/L (0.60-1.99) 03/01/17 15:56 Calcium 8.4 mg/dL (8.6-10.3) L 03/06/17 04:40 Phosphorus 3.9 mg/dL (2.5-5.0) 03/06/17 04:40 Magnesium 2.2 mg/dL (1.9-2.7) 03/06/17 04:40 Total Bilirubin 4.1 mg/dL (0.3-1.0) H 03/05/17 07:45 Direct Bilirubin 1.98 mg/dL (0.0-0.2) H 03/02/17 05:36 AST 30 U/L (13-39) 03/05/17 07:45 ALT 7 U/L (7-52) 03/05/17 07:45 Alkaline Phosphatase 132 U/L (34-104) H 03/05/17 07:45 Total Protein 5.3 gm/dL (6.0-8.3) L 03/05/17 07:45 Albumin 2.3 gm/dL (3.7-5.3) L 03/05/17 07:45 Globulin 3.0 gm/dL 03/05/17 07:45 Albumin/Globulin Ratio 0.8 (1.0-1.8) L 03/05/17 07:45 Prealbumin <3 mg/dL (10-36) L 03/05/17 07:45 Triglycerides 112 mg/dL (<150) 03/03/17 06:29 Cholesterol < 25 mg/dL (<200) 03/05/17 07:45 Gentamicin Peak 8.8 ug/ml (4.0-8.0) 03/01/17 10:00 Gentamicin Trough ug/ml (0.2-2.0) 03/01/17 08:30 Serum Ketones NEGATIVE (NEGATIVE) 02/27/17 19:30 Hepatitis A IgM Ab Negative (Negative) 03/02/17 05:36 Hep Bs Antigen Negative (Negative) 03/02/17 05:36 Hep B Core IgM Ab Negative (Negative) 03/02/17 05:36 Hepatitis C Antibody <0.1 s/co ratio (0.0-0.9) 03/02/17 05:36 Blood Type A POSITIVE 03/03/17 09:10 Antibody Screen NEGATIVE 03/03/17 09:10 Crossmatch See Detail 03/03/17 09:10 - Physical Exam Vitals and I&O: Vital Signs Temp 97.2 F 03/06/17 04:00 Pulse 122 03/06/17 08:10 Resp 21 03/06/17 07:00 BP 131/75 03/06/17 07:00 Pulse Ox 99 03/06/17 08:10 Intake & Output 03/05/17 03/06/17 03/06/17 18:59 06:59 18:59 Intake Total 1546 999.144 Output Total 150 Balance 1546 849.144 Weight (lbs) 131.3 kg 130.408 kg Intake: Intake, IV Amount 1476 109.144 Multivitamin Inj 10 ml In 1376 Amino Acids 3% / Electrolytes 700 ml In Intralipids 20% 50 ml In Dextrose 10% 680 ml @ 60 mls/hr IV .Q24H [facility] Rx#: [id number] Norepinephrine 4 mg In 9.144 Dextrose 5% 250 ml @ 37.5 MCG/MIN 142.87 mls/hr IV TITR PRN Rx#:[id number] Tigecycline 50 mg In 100 100 Sodium Chloride 0.9% 100 ml @ 100 mls/hr IV Q12H [facility] Rx#:[id number] TPN/PPN 70 540 Blood Product 350 Output: Drainage 150 Left Lower Abdomen 100 Right Lower Abdomen 50 Other: # Bowel Movements 0 Active Medications: Current Medications Acetaminophen/Hydrocodone Bitart ([place] 10 Mg/325 Mg) 1 tab PO Q6H PRN PRN Reason: Pain (Moderate) Stop: 05/04/17 09:27 Albuterol Sulfate (Albuterol 2.5mg/3ml Neb Ud) 2.5 mg HHN Q2H PRN PRN Reason: Shortness of Breath Stop: 04/29/17 03:59 Last Admin: 03/05/17 19:08 Dose: 2.5 mg Albuterol/Ipratropium (Duoneb Neb) 3 ml HHN Q4HRT [facility] Stop: 05/04/17 22:59 Last Admin: 03/06/17 08:20 Dose: 3 ml Ascorbic Acid (Vitamin C) 500 mg PO DAILY [facility] Stop: 04/29/17 08:59 Last Admin: 03/05/17 10:27 Dose: Not Given Budesonide (Pulmicort) 0.25 mg HHN BIDRT [facility] Stop: 05/05/17 06:59 Last Admin: 03/06/17 08:20 Dose: 0.25 mg Cholecalciferol (Vitamin D3) 2,000 iu PO DAILY [facility] Stop: 04/29/17 08:59 Last Admin: 03/05/17 10:26 Dose: Not Given Diphenhydramine HCl (Benadryl) 25 mg PO Q6H PRN PRN Reason: Itching Stop: 04/29/17 03:39 Escitalopram Oxalate (Lexapro) 10 mg PO DAILY [facility] PRN Reason: Protocol Stop: 04/29/17 08:59 Last Admin: 03/05/17 10:26 Dose: Not Given Famotidine (Pepcid) 20 mg IVP DAILY [facility] Stop: 05/01/17 08:59 Last Admin: 03/05/17 10:25 Dose: 20 mg Fludrocortisone Acetate (Florinef) 0.1 mg PO BID [facility] Stop: 04/29/17 08:59 Last Admin: 03/05/17 17:54 Dose: Not Given Heparin Sodium (Porcine) (Heparin) 5,000 units SUBQ Q12HR [facility] Stop: 05/04/17 20:59 Last Admin: 03/06/17 06:24 Dose: Not Given Diltiazem HCl 125 mg/ Dextrose 125 mls @ 10 mls/hr IV TITR [facility]; 10 MG/HR PRN Reason: Protocol Stop: 04/29/17 04:14 Last Titration: 03/02/17 09:20 Dose: 0 mg/hr, 0 mls/hr Tigecycline 50 mg/ Sodium (Chloride) 100 mls @ 100 mls/hr IV Q12H [facility] Stop: 04/30/17 11:29 Last Infusion: 03/06/17 06:10 Dose: Infused Multivitamins/Minerals 10 ml/Amino Acids/Electrolytes/ Fat Emulsion Intravenous / Dextrose 1,440 mls @ 60 mls/hr IV .Q24H [facility] Stop: 05/02/17 15:59 Last Admin: 03/05/17 17:14 Dose: 60 mls/hr Albumin Human (Albuminar 25%) 25 gm in 100 mls @ 50 mls/hr IV X1 ONE Stop: 03/06/17 15:25 Albumin Human (Albuminar 25%) 25 gm in 100 mls @ 50 mls/hr IV X1 ONE Stop: 03/06/17 15:26 Amikacin Sulfate 300 mg/ (Dextrose) 101.2 mls @ 100 mls/hr IV PRN PRN PRN Reason: AFTER EACH DIALYSIS Stop: 05/05/17 14:59 Meropenem 500 mg/ Sodium (Chloride) 100 mls @ 100 mls/hr IV Q24H [facility] Stop: 05/05/17 08:59 Norepinephrine Bitartrate 4 mg (/ Dextrose) 254 mls @ 142.87 mls/hr IV TITR PRN ; Protocol; 37.5 MCG/MIN PRN Reason: BP MAINTENANCE (PER PROTOCOL) Stop: 05/04/17 22:40 Last Titration: 03/06/17 01:00 Dose: 6 mcg/min, 22.86 mls/hr Insulin Aspart (Novolog Insulin Sliding Scale) 0 units SUBQ Q6HR [facility] PRN Reason: Protocol Stop: 05/03/17 00:00 Last Admin: 03/06/17 06:23 Dose: Not Given Lactobacillus Rhamnosus (Culturelle) 1 each PO DAILY [facility] Stop: 05/01/17 08:59 Last Admin: 03/05/17 10:27 Dose: Not Given Lorazepam (Ativan) 2 mg IVP Q4HR PRN; Protocol PRN Reason: Anxiety Stop: 05/04/17 20:17 Metoprolol Tartrate (Lopressor) 50 mg PO Q12HR [facility] Stop: 04/29/17 08:59 Last Admin: 03/05/17 23:50 Dose: Not Given Miconazole Nitrate (Miconazole 2% Cream) 1 appl VG BID [facility] Stop: 03/07/17 08:59 Last Admin: 03/05/17 17:53 Dose: Not Given Miscellaneous (Clinical Monitoring) 1 ea [facility] DAILY PRN PRN Reason: RENAL Stop: 04/29/17 10:50 Miscellaneous (Vte Chemical Prophylaxis Screen/ Admission) 1 ea [facility] PRN PRN PRN Reason: PROTOCOL Stop: 04/29/17 15:40 Miscellaneous (Probiotic Screen) 1 ea MC PRN PRN PRN Reason: PROTOCOL Stop: 04/30/17 10:56 Miscellaneous (Tpn Per Pharmacy) 1 ea [facility] PRN PRN PRN Reason: PROTOCOL Stop: 04/30/17 18:13 Morphine Sulfate (Morphine) 2 mg IVP Q4HR PRN PRN Reason: Pain (Moderate) Stop: 04/28/17 23:23 Last Admin: 03/06/17 01:14 Dose: 2 mg Zinc Sulfate (Zinc Sulfate) 220 mg PO DAILY [facility] Stop: 04/29/17 08:59 Last Admin: 03/05/17 10:27 Dose: Not Given General: Other (intubated and sedated), no Alert HEENT: Atraumatic, PERRLA, Other (endotracheal tube noted .) Neck: Supple, +2 carotid pulse wo bruit Cardiovascular: Systolic murmurs, Other (irregularly irregular.) Lungs: Other (diffuse rhonchi throughout.) Abdomen: Bowel sounds, Soft, Obese, Other (multiple abd wounds, w/ wound vac.) Extremities: Other (ecchymosis, hematomas, petecchiae,debrided wound.), no Edema Neurological: Sensation intact, Other (stuporous) Skin: Rash, Breakdown (multiple blisters), Significant lesion (multiple bruises and ecchymosis, ischemic wounds.) Psych/Mental Status: Other (intubated and sedated) - Procedures Procedures: Procedures Procedure Code Date INSERT EMERGENCY AIRWAY 02413 02/27/17 INSERTION OF ENDOTRACHEAL AIRWAY INTO TRACHEA, VIA OPENING [id number] 02/27/17 RESPIRATORY VENTILATION, LESS THAN 24 CONSECUTIVE HOURS [id number] 02/27/17 VENT MGMT INPAT INIT DAY [id number] 02/27/17 Assessment/Plan - Assessment Assessment: Septic shock. Multiple infected wounds on abdomen and extremities status post debridement with wound VAC. End-stage renal disease on hemodialysis. Hypertension. Acute respiratory failure requiring endotracheal intubation and mechanical ventilation. Coronary artery disease. Severe thrombocytopenia secondary to DIC and possible medication related. Anemia of chronic kidney disease and anemia of inflammation. Chronic atrial fibrillation. Anxiety depression. History of DVT and jugular venous thrombosis. Heparin induced thrombocytopenia history. Diffuse DJD. Bed confined. Guarded prognosis. - Plan Plan: ICU status. Vent support. HHN. Pulmo consult and follow up. IV antibiotics as per ID. Hemodialysis as schedule. Wound care as per surgery. Cardiac monitoring. Hematology consultation and follow up. Cardiology consultation and follow-up General nursing care ID follow-up and follow the recommendations Follow labs. Follow-up consultants recommendations. Prognosis guarded. DIC panel. ICU care. Anticoagulation therapy. Chronic management of her chronic illnesses. Care plan reviewed and discussed with RN and . Nutritional Asmnt/Malnutr-PDOC - Dietary Evaluation Malnutrition Findings (Please click <Entered> for more info): Nutritional Asmnt/Malnutrition Start: 02/28/17 14: 25 Text: Status: Complete Freq: Document 02/28/17 14:32 GSUN (Rec: 02/28/17 14:52 [email or web address] [email or web address]) Nutritional Asmnt/Malnutrition Patient General Information Nutritional Screening High Risk Screening Diagnosis Infectured multiple abdominal wound, sepsis, hypotension Pertinent Medical Hx/Surgical Hx DM, end stage renal failure, obesity, multiple abdominal wound, anemia Subjective Information 71 [address] consult for wounds/calciphylaxis. Pt was lethargic during visit, spoke to at bedside. Briefly explained renal diet, agreeable to plan, not suitble for extensive edu at this time. Pt appeared obese. Pt reported UBW 250lb measured 1 month ago, pt is unsure of dry weight at dialysis center. Pt reported has gradually lost weight 80lb over the past year due to poor appetite and hospitalizations. RD recommended oral supplements, pt denied, stating she has tried and threw up. Current Diet Order/ Nutrition Support Renal, 1800kcal Pertinent Medications Vitamin C, Vitamin D3, D5-0. 45ns, Pepcid, Novolog, Culturelle, Morphine, Zinc Sulfate Pertinent Labs /: BUN 38H, creatinine 5H, phosphorus 5.4H Nutritional Hx/Data Height 1.63 m Height (Calculated Centimeters) 162.6 Current Weight (lbs) 113.398 kg Weight (Calculated Kilograms) 113.4 Weight (Calculated Grams) 211737.1 [place] Body Weight 120 Recent Weight Change Yes Weight Status Morbidly Obese GI Symptoms Skin Integrity/Comment: Bilateral lower extremities pitting 3+. Abdominal wounds/ calciphylaxis Estimated Nutritional Goals BEE in Kcals: Adj wt of IBW Calories/Kcals/Kg AdjBW 152.5lb/69.3kg (adjsuted to UBW) Kcals Calculated 2078-2426kcal (30-35kcal/kg) Protein: Adj wt of IBW Protein Calculated 90-104g (1.2-1.5/gkg) Fluid: ml 9-2426ml (1ml/kcal) Nutritional Problem 3. Problem Problem Malnutrition related to Etiology unknown etiology, energy imbalance aeb Signs/Symptoms: BMI >40 2. Problem Problem Increased kcal and prot needs related to Etiology hypermetabolic state aeb Signs/Symptoms: on HD, sepsis 1. Problem Problem Impaired nutrient utilization related to Etiology end stage renal failure aeb Signs/Symptoms: on HD, BUN 38H, creatinine 5H, phosphorus 5.4H Malnutrition Related to Morbid Obesity Malnutrition related to morbid obesity BMI> or equal to 40 Query Text:(Any 1 Criteria met) Malnutrition related to morbid obesity Yes Intervention/Recommendation Comments 1. Recommend renal diet. Briefly explained renal diet, pt is agreeable to plan. Encourage PO intake. 2. Recommend removing " 1800kcal" restriction as pt is in hypermetabolic state ( sepsis, HD) and obese, requiring more than 1800kcal, weight loss not favorable at this time. 3. Pt reported poor appetite many months, RD recommend oral supplements, pt declined. Expected Outcomes/Goals Expected Outcomes/Goals 1. PO intake to meet at least 75% of estimated nutritional needs.
[2017-03-06] MEDS: Meropenem 500 MG in Sodium Chloride 0.9% 100 ML IV SCH (09:43)
--- NOTE | 2017-03-06 09:43 | Diagnostic Imaging Report ---
Portable chest x-ray HISTORY: Shortness of breath Compared with the prior exam of March 05, 2017, no significant change. Persistent cardiomegaly with evidence of a left pleural effusion and small right pleural effusion. An endotracheal tube tip is roughly 3.0 cm above the betzy. IMPRESSION: 1. No change in the cardiopulmonary status as noted above.
[2017-03-06 10:16] LABS: pH 7.56 (7.35-7.45)
[2017-03-06 10:17] LABS: HCO3 24.9 mEq/L (20.0-26.0)
[2017-03-06 10:18] LABS: ABG SOURCE Arterial; ALLEN TEST Positive; BE(B) -0.1 mEq/L (-3.0-3.0)
[2017-03-06 10:19] LABS: FIO2 50; MECH RATE 12; MECH VT 600
[2017-03-06 10:56] LABS: INR 1.68 (0.5-1.4)
[2017-03-06] MEDS: MICONAZOLE 2% VG SCH ×2 (12:49→20:12)
[2017-03-06] MEDS: Venelex 60gm Tube TP SCH (12:54)
--- NOTE | 2017-03-06 13:05 | General Progress Note ---
Subjective - Review of Systems Service Date: 03/06/17 Events since last encounter: on wound vac with minimal drainage Objective - Results Result Diagrams: 03/06/17 04:40 03/06/17 04:40 Recent Labs: Laboratory Last Values WBC 23.3 Th/cmm (4.8-10.8) H* D 03/06/17 04:40 RBC 2.56 Mil/cmm (3.80-5.20) L 03/06/17 04:40 Hgb 8.3 gm/dL (11.7-16.1) L 03/06/17 04:40 Hct 23.6 % (35.0-45.0) L* D 03/06/17 04:40 MCV 92.3 fl (81-100) 03/06/17 04:40 MCH 32.4 pg (27.0-31.0) H 03/06/17 04:40 MCHC Differential 35.1 pg (28.0-36.0) 03/06/17 04:40 RDW 15.8 % (11.5-20.0) 03/06/17 04:40 Plt Count 86 Th/cmm (150-400) L D 03/06/17 04:40 MPV 8.4 fl 03/06/17 04:40 Neutrophils % 82.3 % (40.0-80.0) H 03/04/17 05:20 Band Neutrophils % 5 % (0-10) 03/06/17 04:40 Lymphocytes % 11.2 % (20.0-50.0) L 03/04/17 05:20 Monocytes % 5.3 % (2.0-10.0) 03/04/17 05:20 Eosinophils % 1.1 % (0.0-5.0) 03/04/17 05:20 Basophils % 0.1 % (0.0-2.0) 03/04/17 05:20 Neutrophils (Manual) 79 % (40-80) 03/06/17 04:40 Lymphocytes 11 % (20-50) L 03/06/17 04:40 Monocytes 5 % (2-10) 03/06/17 04:40 Eosinophils 2 % (0-5) 03/01/17 12:26 Basophils 1 % (0-3) 03/01/17 12:26 Metamyelocytes 1 % (0-0) H 03/02/17 05:36 Hypochromia 1+ 03/03/17 06:29 Platelet Estimate DECREASED PLATELETS (NORMAL) 03/06/17 04:40 Platelet Morphology NORMAL (NORMAL) 03/06/17 04:40 Polychromasia 1+ 03/03/17 06:29 Poikilocytosis 1+ 03/06/17 04:40 Anisocytosis 1+ 03/06/17 04:40 RBC Morph Micro Appear ABNORMAL (NORMAL) 03/06/17 04:40 Plt Count 73 Th/cmm (150-750) L 03/06/17 09:50 PT 18.0 SECONDS (9.5-11.5) H 03/06/17 09:50 INR 1.68 (0.5-1.4) H 03/06/17 09:50 PTT (Actin FS) 54.5 SECONDS (26.0-38.0) H 03/06/17 09:50 Fibrinogen 116.0 mg/dL (200.0-400.0) L 03/06/17 09:50 D-Dimer 2310 ng/mL (100-400) H 03/06/17 09:50 Specimen Source Arterial 03/06/17 09:54 Sample Site Right Radial 03/06/17 09:54 pH 7.56 (7.35-7.45) H* 03/06/17 09:54 pCO2 23.0 mmHg (35.0-45.0) L* 03/06/17 09:54 pO2 197.0 mmHg (80.0-100.0) H 03/06/17 09:54 HCO3 24.9 mEq/L (20.0-26.0) 03/06/17 09:54 Base Excess -0.1 mEq/L (-3.0-3.0) 03/06/17 09:54 O2 Saturation 100.0 % (92.0-100.0) 03/06/17 09:54 Chaz Test Positive 03/06/17 09:54 Vent Rate 12 03/06/17 09:54 Inspired O2 50 03/06/17 09:54 Tidal Volume 600 03/06/17 09:54 PEEP NA 03/06/17 09:54 Pressure (ins/psv/peep) NA 03/06/17 09:54 Critical Value LZHANG 03/06/17 09:54 Sodium 131 mEq/L (136-145) L 03/06/17 04:40 Potassium 4.4 mEq/L (3.5-5.1) 03/06/17 04:40 Chloride 102 mEq/L (98-107) 03/06/17 04:40 Carbon Dioxide 19.1 mEq/L (21.0-31.0) L 03/06/17 04:40 Anion Gap 14.3 (7.0-16.0) 03/06/17 04:40 BUN 44 mg/dL (7-25) H 03/06/17 04:40 Creatinine 4.3 mg/dL (0.6-1.2) H* 03/06/17 04:40 Est GFR ( Amer) 13.1 ml/min (>90) 03/06/17 04:40 Est GFR (Non-Af Amer) 10.9 ml/min 03/06/17 04:40 BUN/Creatinine Ratio 10.2 03/06/17 04:40 Glucose 100 mg/dL (70-105) 03/06/17 04:40 POC Glucose 103 MG/DL (70 - 105) 03/06/17 11:20 Hemoglobin A1c % 4.6 % (4.0-6.0) 02/27/17 19:30 Whole Bld Lactic Acid 1.39 mmol/L (0.60-1.99) 03/01/17 15:56 Calcium 8.4 mg/dL (8.6-10.3) L 03/06/17 04:40 Phosphorus 3.9 mg/dL (2.5-5.0) 03/06/17 04:40 Magnesium 2.2 mg/dL (1.9-2.7) 03/06/17 04:40 Total Bilirubin 4.1 mg/dL (0.3-1.0) H 03/05/17 07:45 Direct Bilirubin 1.98 mg/dL (0.0-0.2) H 03/02/17 05:36 AST 30 U/L (13-39) 03/05/17 07:45 ALT 7 U/L (7-52) 03/05/17 07:45 Alkaline Phosphatase 132 U/L (34-104) H 03/05/17 07:45 Total Protein 5.3 gm/dL (6.0-8.3) L 03/05/17 07:45 Albumin 2.3 gm/dL (3.7-5.3) L 03/05/17 07:45 Globulin 3.0 gm/dL 03/05/17 07:45 Albumin/Globulin Ratio 0.8 (1.0-1.8) L 03/05/17 07:45 Prealbumin <3 mg/dL (10-36) L 03/05/17 07:45 Triglycerides 112 mg/dL (<150) 03/03/17 06:29 Cholesterol < 25 mg/dL (<200) 03/05/17 07:45 Gentamicin Peak 8.8 ug/ml (4.0-8.0) 03/01/17 10:00 Gentamicin Trough ug/ml (0.2-2.0) 03/01/17 08:30 Serum Ketones NEGATIVE (NEGATIVE) 02/27/17 19:30 Hepatitis A IgM Ab Negative (Negative) 03/02/17 05:36 Hep Bs Antigen Negative (Negative) 03/02/17 05:36 Hep B Core IgM Ab Negative (Negative) 03/02/17 05:36 Hepatitis C Antibody <0.1 s/co ratio (0.0-0.9) 03/02/17 05:36 Blood Type A POSITIVE 03/03/17 09:10 Antibody Screen NEGATIVE 03/03/17 09:10 Crossmatch See Detail 03/03/17 09:10 - Physical Exam Vitals and I&O: Vital Signs Temp 97.2 F 03/06/17 04:00 Pulse 122 03/06/17 08:10 Resp 29 03/06/17 08:00 BP 135/66 03/06/17 08:00 Pulse Ox 99 03/06/17 08:10 Intake & Output 03/05/17 03/06/17 03/06/17 18:59 06:59 18:59 Intake Total 1546 999.144 232.791 Output Total 150 Balance 1546 849.144 232.791 Weight (lbs) 131.3 kg 130.408 kg Intake: Intake, IV Amount 1476 109.144 232.791 Multivitamin Inj 10 ml In 1376 Amino Acids 3% / Electrolytes 700 ml In Intralipids 20% 50 ml In Dextrose 10% 680 ml @ 60 mls/hr IV .Q24H [facility] Rx#: [id number] Norepinephrine 4 mg In 9.144 232.791 Dextrose 5% 250 ml @ 37.5 MCG/MIN 142.87 mls/hr IV TITR PRN Rx#:[id number] Tigecycline 50 mg In 100 100 Sodium Chloride 0.9% 100 ml @ 100 mls/hr IV Q12H [facility] Rx#:[id number] TPN/PPN 70 540 Blood Product 350 Output: Drainage 150 Left Lower Abdomen 100 Right Lower Abdomen 50 Other: # Bowel Movements 0 Active Medications: Current Medications Acetaminophen/Hydrocodone Bitart ([place] 10 Mg/325 Mg) 1 tab PO Q6H PRN PRN Reason: Pain (Moderate) Stop: 05/04/17 09:27 Albuterol Sulfate (Albuterol 2.5mg/3ml Neb Ud) 2.5 mg HHN Q2H PRN PRN Reason: Shortness of Breath Stop: 04/29/17 03:59 Last Admin: 03/05/17 19:08 Dose: 2.5 mg Albuterol/Ipratropium (Duoneb Neb) 3 ml HHN Q4HRT [facility] Stop: 05/04/17 22:59 Last Admin: 03/06/17 12:22 Dose: 3 ml Ascorbic Acid (Vitamin C) 500 mg PO DAILY [facility] Stop: 04/29/17 08:59 Last Admin: 03/05/17 10:27 Dose: Not Given Budesonide (Pulmicort) 0.25 mg HHN BIDRT [facility] Stop: 05/05/17 06:59 Last Admin: 03/06/17 08:20 Dose: 0.25 mg Cholecalciferol (Vitamin D3) 2,000 iu PO DAILY [facility] Stop: 04/29/17 08:59 Last Admin: 03/05/17 10:26 Dose: Not Given Diphenhydramine HCl (Benadryl) 25 mg PO Q6H PRN PRN Reason: Itching Stop: 04/29/17 03:39 Escitalopram Oxalate (Lexapro) 10 mg PO DAILY [facility] PRN Reason: Protocol Stop: 04/29/17 08:59 Last Admin: 03/05/17 10:26 Dose: Not Given Famotidine (Pepcid) 20 mg IVP DAILY [facility] Stop: 05/01/17 08:59 Last Admin: 03/06/17 09:35 Dose: 20 mg Fludrocortisone Acetate (Florinef) 0.1 mg PO BID [facility] Stop: 04/29/17 08:59 Last Admin: 03/06/17 12:43 Dose: Not Given Heparin Sodium (Porcine) (Heparin) 5,000 units SUBQ Q12HR [facility] Stop: 05/04/17 20:59 Last Admin: 03/06/17 06:24 Dose: Not Given Diltiazem HCl 125 mg/ Dextrose 125 mls @ 10 mls/hr IV TITR [facility]; 10 MG/HR PRN Reason: Protocol Stop: 04/29/17 04:14 Last Titration: 03/02/17 09:20 Dose: 0 mg/hr, 0 mls/hr Tigecycline 50 mg/ Sodium (Chloride) 100 mls @ 100 mls/hr IV Q12H [facility] Stop: 04/30/17 11:29 Last Infusion: 03/06/17 06:10 Dose: Infused Multivitamins/Minerals 10 ml/Amino Acids/Electrolytes/ Fat Emulsion Intravenous / Dextrose 1,440 mls @ 60 mls/hr IV .Q24H [facility] Stop: 05/02/17 15:59 Last Admin: 03/05/17 17:14 Dose: 60 mls/hr Amikacin Sulfate 300 mg/ (Dextrose) 101.2 mls @ 100 mls/hr IV PRN PRN PRN Reason: AFTER EACH DIALYSIS Stop: 05/05/17 14:59 Meropenem 500 mg/ Sodium (Chloride) 100 mls @ 100 mls/hr IV Q24H [facility] Stop: 05/05/17 08:59 Last Admin: 03/06/17 09:43 Dose: 100 mls/hr Norepinephrine Bitartrate 4 mg (/ Dextrose) 254 mls @ 142.87 mls/hr IV TITR PRN ; Protocol; 37.5 MCG/MIN PRN Reason: BP MAINTENANCE (PER PROTOCOL) Stop: 05/04/17 22:40 Last Admin: 03/06/17 11:11 Dose: 3 mcg/min, 11.43 mls/hr Insulin Aspart (Novolog Insulin Sliding Scale) 0 units SUBQ Q6HR [facility] PRN Reason: Protocol Stop: 05/03/17 00:00 Last Admin: 03/06/17 12:43 Dose: Not Given Lactobacillus Rhamnosus (Culturelle) 1 each PO DAILY [facility] Stop: 05/01/17 08:59 Last Admin: 03/05/17 10:27 Dose: Not Given Lorazepam (Ativan) 2 mg IVP Q4HR PRN; Protocol PRN Reason: Anxiety Stop: 05/04/17 20:17 Metoprolol Tartrate (Lopressor) 50 mg PO Q12HR [facility] Stop: 04/29/17 08:59 Last Admin: 03/05/17 23:50 Dose: Not Given Miconazole Nitrate (Miconazole 2% Cream) 1 appl VG BID [facility] Stop: 03/07/17 08:59 Last Admin: 03/05/17 17:53 Dose: Not Given Miscellaneous (Clinical Monitoring) 1 ea MC DAILY PRN PRN Reason: RENAL Stop: 04/29/17 10:50 Miscellaneous (Vte Chemical Prophylaxis Screen/ Admission) 1 ea PRN PRN PRN Reason: PROTOCOL Stop: 04/29/17 15:40 Miscellaneous (Probiotic Screen) 1 ea PRN PRN PRN Reason: PROTOCOL Stop: 04/30/17 10:56 Miscellaneous (Tpn Per Pharmacy) 1 ea PRN PRN PRN Reason: PROTOCOL Stop: 04/30/17 18:13 Morphine Sulfate (Morphine) 2 mg IVP Q4HR PRN PRN Reason: Pain (Moderate) Stop: 04/28/17 23:23 Last Admin: 03/06/17 01:14 Dose: 2 mg Zinc Sulfate (Zinc Sulfate) 220 mg PO DAILY [facility] Stop: 04/29/17 08:59 Last Admin: 03/05/17 10:27 Dose: Not Given General: Other (intubated and sedated), no Alert HEENT: Atraumatic, PERRLA, Other (endotracheal tube noted .) Neck: Supple, +2 carotid pulse wo bruit Cardiovascular: Systolic murmurs, Other (irregularly irregular.) Lungs: Other (diffuse rhonchi throughout.) Abdomen: Bowel sounds, Soft, Obese, Other (multiple abd wounds, w/ wound vac.) Extremities: Other (ecchymosis, hematomas, petecchiae,debrided wound.), no Edema Neurological: Sensation intact, Other (stuporous) Skin: Rash, Breakdown (multiple blisters), Significant lesion (multiple bruises and ecchymosis, ischemic wounds.) Psych/Mental Status: Other (intubated and sedated) - Procedures Procedures: Procedures Procedure Code Date INSERT EMERGENCY AIRWAY 52742 02/27/17 INSERTION OF ENDOTRACHEAL AIRWAY INTO TRACHEA, VIA OPENING [id number] 02/27/17 RESPIRATORY VENTILATION, LESS THAN 24 CONSECUTIVE HOURS [id number] 02/27/17 VENT MGMT INPAT INIT DAY 87882 02/27/17 Nutritional Asmnt/Malnutr-PDOC - Dietary Evaluation Malnutrition Findings (Please click <Entered> for more info): Nutritional Asmnt/Malnutrition Start: 02/28/17 14: 25 Text: Status: Complete Freq: Document 02/28/17 14:32 GSUN (Rec: 02/28/17 14:52 [email or web address]) Nutritional Asmnt/Malnutrition Patient General Information Nutritional Screening High Risk Screening Diagnosis Infectured multiple abdominal wound, sepsis, hypotension Pertinent Medical Hx/Surgical Hx DM, end stage renal failure, obesity, multiple abdominal wound, anemia Subjective Information 71 [address] consult for wounds/calciphylaxis. Pt was lethargic during visit, spoke to at bedside. Briefly explained renal diet, agreeable to plan, not suitble for extensive edu at this time. Pt appeared obese. Pt reported UBW 250lb measured 1 month ago, pt is unsure of dry weight at dialysis center. Pt reported has gradually lost weight 80lb over the past year due to poor appetite and hospitalizations. RD recommended oral supplements, pt denied, stating she has tried and threw up. Current Diet Order/ Nutrition Support Renal, 1800kcal Pertinent Medications Vitamin C, Vitamin D3, D5-0. 45ns, Pepcid, Novolog, Culturelle, Morphine, Zinc Sulfate Pertinent Labs /: BUN 38H, creatinine 5H, phosphorus 5.4H Nutritional Hx/Data Height 1.63 m Height (Calculated Centimeters) 162.6 Current Weight (lbs) 113.398 kg Weight (Calculated Kilograms) 113.4 Weight (Calculated Grams) 104681.1 [place] Body Weight 120 Recent Weight Change Yes Weight Status Morbidly Obese GI Symptoms Skin Integrity/Comment: Bilateral lower extremities pitting 3+. Abdominal wounds/ calciphylaxis Estimated Nutritional Goals BEE in Kcals: Adj wt of IBW Calories/Kcals/Kg AdjBW 152.5lb/69.3kg (adjsuted to UBW) Kcals Calculated 2079-2426kcal (30-35kcal/kg) Protein: Adj wt of IBW Protein Calculated 90-104g (1.2-1.5/gkg) Fluid: ml 2079-2426ml (1ml/kcal) Nutritional Problem 3. Problem Problem Malnutrition related to Etiology unknown etiology, energy imbalance aeb Signs/Symptoms: BMI >40 2. Problem Problem Increased kcal and prot needs related to Etiology hypermetabolic state aeb Signs/Symptoms: on HD, sepsis 1. Problem Problem Impaired nutrient utilization related to Etiology end stage renal failure aeb Signs/Symptoms: on HD, BUN 38H, creatinine 5H, phosphorus 5.4H Malnutrition Related to Morbid Obesity Malnutrition related to morbid obesity BMI> or equal to 40 Query Text:(Any 1 Criteria met) Malnutrition related to morbid obesity Yes Intervention/Recommendation Comments 1. Recommend renal diet. Briefly explained renal diet, pt is agreeable to plan. Encourage PO intake. 2. Recommend removing " 1800kcal" restriction as pt is in hypermetabolic state ( sepsis, HD) and obese, requiring more than 1800kcal, weight loss not favorable at this time. 3. Pt reported poor appetite many months, RD recommend oral supplements, pt declined. Expected Outcomes/Goals Expected Outcomes/Goals 1. PO intake to meet at least 75% of estimated nutritional needs.
[2017-03-06] MEDS: Lactobacillus Rhamnosus 10 Billion CFU Capsule PO SCH (13:12)
[2017-03-06] MEDS ORDERED: Albumin 25% 25gm/100mL 25 GM/100 ML BTL IV ONE ×2 (13:26→13:27)
[2017-03-06] MEDS ORDERED: Amikacin 250 mg in D5W 100mL IV PRN (15:00)
--- NOTE | 2017-03-06 16:01 | General Progress Note ---
Subjective - Review of Systems Service Date: 03/06/17 Objective - Results Result Diagrams: 03/06/17 04:40 03/06/17 04:40 Recent Labs: Laboratory Last Values WBC 23.3 Th/cmm (4.8-10.8) H* D 03/06/17 04:40 RBC 2.56 Mil/cmm (3.80-5.20) L 03/06/17 04:40 Hgb 8.3 gm/dL (11.7-16.1) L 03/06/17 04:40 Hct 23.6 % (35.0-45.0) L* D 03/06/17 04:40 MCV 92.3 fl (81-100) 03/06/17 04:40 MCH 32.4 pg (27.0-31.0) H 03/06/17 04:40 MCHC Differential 35.1 pg (28.0-36.0) 03/06/17 04:40 RDW 15.8 % (11.5-20.0) 03/06/17 04:40 Plt Count 86 Th/cmm (150-400) L D 03/06/17 04:40 MPV 8.4 fl 03/06/17 04:40 Neutrophils % 82.3 % (40.0-80.0) H 03/04/17 05:20 Band Neutrophils % 5 % (0-10) 03/06/17 04:40 Lymphocytes % 11.2 % (20.0-50.0) L 03/04/17 05:20 Monocytes % 5.3 % (2.0-10.0) 03/04/17 05:20 Eosinophils % 1.1 % (0.0-5.0) 03/04/17 05:20 Basophils % 0.1 % (0.0-2.0) 03/04/17 05:20 Neutrophils (Manual) 79 % (40-80) 03/06/17 04:40 Lymphocytes 11 % (20-50) L 03/06/17 04:40 Monocytes 5 % (2-10) 03/06/17 04:40 Eosinophils 2 % (0-5) 03/01/17 12:26 Basophils 1 % (0-3) 03/01/17 12:26 Metamyelocytes 1 % (0-0) H 03/02/17 05:36 Hypochromia 1+ 03/03/17 06:29 Platelet Estimate DECREASED PLATELETS (NORMAL) 03/06/17 04:40 Platelet Morphology NORMAL (NORMAL) 03/06/17 04:40 Polychromasia 1+ 03/03/17 06:29 Poikilocytosis 1+ 03/06/17 04:40 Anisocytosis 1+ 03/06/17 04:40 RBC Morph Micro Appear ABNORMAL (NORMAL) 03/06/17 04:40 Plt Count 73 Th/cmm (150-750) L 03/06/17 09:50 PT 18.0 SECONDS (9.5-11.5) H 03/06/17 09:50 INR 1.68 (0.5-1.4) H 03/06/17 09:50 PTT (Actin FS) 54.5 SECONDS (26.0-38.0) H 03/06/17 09:50 Fibrinogen 116.0 mg/dL (200.0-400.0) L 03/06/17 09:50 D-Dimer 2310 ng/mL (100-400) H 03/06/17 09:50 Specimen Source Arterial 03/06/17 09:54 Sample Site Right Radial 03/06/17 09:54 pH 7.56 (7.35-7.45) H* 03/06/17 09:54 pCO2 23.0 mmHg (35.0-45.0) L* 03/06/17 09:54 pO2 197.0 mmHg (80.0-100.0) H 03/06/17 09:54 HCO3 24.9 mEq/L (20.0-26.0) 03/06/17 09:54 Base Excess -0.1 mEq/L (-3.0-3.0) 03/06/17 09:54 O2 Saturation 100.0 % (92.0-100.0) 03/06/17 09:54 Chaz Test Positive 03/06/17 09:54 Vent Rate 12 03/06/17 09:54 Inspired O2 50 03/06/17 09:54 Tidal Volume 600 03/06/17 09:54 PEEP NA 03/06/17 09:54 Pressure (ins/psv/peep) NA 03/06/17 09:54 Critical Value LZHANG 03/06/17 09:54 Sodium 131 mEq/L (136-145) L 03/06/17 04:40 Potassium 4.4 mEq/L (3.5-5.1) 03/06/17 04:40 Chloride 102 mEq/L (98-107) 03/06/17 04:40 Carbon Dioxide 19.1 mEq/L (21.0-31.0) L 03/06/17 04:40 Anion Gap 14.3 (7.0-16.0) 03/06/17 04:40 BUN 44 mg/dL (7-25) H 03/06/17 04:40 Creatinine 4.3 mg/dL (0.6-1.2) H* 03/06/17 04:40 Est GFR ( Amer) 13.1 ml/min (>90) 03/06/17 04:40 Est GFR (Non-Af Amer) 10.9 ml/min 03/06/17 04:40 BUN/Creatinine Ratio 10.2 03/06/17 04:40 Glucose 100 mg/dL (70-105) 03/06/17 04:40 POC Glucose 103 MG/DL (70 - 105) 03/06/17 11:20 Hemoglobin A1c % 4.6 % (4.0-6.0) 02/27/17 19:30 Whole Bld Lactic Acid 1.39 mmol/L (0.60-1.99) 03/01/17 15:56 Calcium 8.4 mg/dL (8.6-10.3) L 03/06/17 04:40 Phosphorus 3.9 mg/dL (2.5-5.0) 03/06/17 04:40 Magnesium 2.2 mg/dL (1.9-2.7) 03/06/17 04:40 Total Bilirubin 4.1 mg/dL (0.3-1.0) H 03/05/17 07:45 Direct Bilirubin 1.98 mg/dL (0.0-0.2) H 03/02/17 05:36 AST 30 U/L (13-39) 03/05/17 07:45 ALT 7 U/L (7-52) 03/05/17 07:45 Alkaline Phosphatase 132 U/L (34-104) H 03/05/17 07:45 Total Protein 5.3 gm/dL (6.0-8.3) L 03/05/17 07:45 Albumin 2.3 gm/dL (3.7-5.3) L 03/05/17 07:45 Globulin 3.0 gm/dL 03/05/17 07:45 Albumin/Globulin Ratio 0.8 (1.0-1.8) L 03/05/17 07:45 Prealbumin <3 mg/dL (10-36) L 03/05/17 07:45 Triglycerides 112 mg/dL (<150) 03/03/17 06:29 Cholesterol < 25 mg/dL (<200) 03/05/17 07:45 Gentamicin Peak 8.8 ug/ml (4.0-8.0) 03/01/17 10:00 Gentamicin Trough ug/ml (0.2-2.0) 03/01/17 08:30 Serum Ketones NEGATIVE (NEGATIVE) 02/27/17 19:30 Hepatitis A IgM Ab Negative (Negative) 03/02/17 05:36 Hep Bs Antigen Negative (Negative) 03/02/17 05:36 Hep B Core IgM Ab Negative (Negative) 03/02/17 05:36 Hepatitis C Antibody <0.1 s/co ratio (0.0-0.9) 03/02/17 05:36 Blood Type A POSITIVE 03/03/17 09:10 Antibody Screen NEGATIVE 03/03/17 09:10 Crossmatch See Detail 03/03/17 09:10 - Physical Exam Vitals and I&O: Vital Signs Temp 97.2 F 03/06/17 04:00 Pulse 130 03/06/17 14:05 Resp 29 03/06/17 08:00 BP 135/66 03/06/17 08:00 Pulse Ox 100 03/06/17 14:05 Intake & Output 03/05/17 03/06/17 03/06/17 18:59 06:59 18:59 Intake Total 1546 999.144 232.791 Output Total 150 Balance 1546 849.144 232.791 Weight (lbs) 131.3 kg 130.408 kg Intake: Intake, IV Amount 1476 109.144 232.791 Multivitamin Inj 10 ml In 1376 Amino Acids 3% / Electrolytes 700 ml In Intralipids 20% 50 ml In Dextrose 10% 680 ml @ 60 mls/hr IV .Q24H [facility] Rx#: [id number] Norepinephrine 4 mg In 9.144 232.791 Dextrose 5% 250 ml @ 37.5 MCG/MIN 142.87 mls/hr IV TITR PRN Rx#:[id number] Tigecycline 50 mg In 100 100 Sodium Chloride 0.9% 100 ml @ 100 mls/hr IV Q12H [facility] Rx#:[id number] TPN/PPN 70 540 Blood Product 350 Output: Drainage 150 Left Lower Abdomen 100 Right Lower Abdomen 50 Other: # Bowel Movements 0 Active Medications: Current Medications Acetaminophen/Hydrocodone Bitart ([place] 10 Mg/325 Mg) 1 tab PO Q6H PRN PRN Reason: Pain (Moderate) Stop: 05/04/17 09:27 Albuterol Sulfate (Albuterol 2.5mg/3ml Neb Ud) 2.5 mg HHN Q2H PRN PRN Reason: Shortness of Breath Stop: 04/29/17 03:59 Last Admin: 03/05/17 19:08 Dose: 2.5 mg Albuterol/Ipratropium (Duoneb Neb) 3 ml HHN Q4HRT [facility] Stop: 05/04/17 22:59 Last Admin: 03/06/17 15:58 Dose: 3 ml Ascorbic Acid (Vitamin C) 500 mg PO DAILY [facility] Stop: 04/29/17 08:59 Last Admin: 03/06/17 13:15 Dose: Not Given Budesonide (Pulmicort) 0.25 mg HHN BIDRT [facility] Stop: 05/05/17 06:59 Last Admin: 03/06/17 08:20 Dose: 0.25 mg Chlorhexidine Gluconate (Peridex) 15 ml MM 0800,1999 [facility] Stop: 05/05/17 19:59 Cholecalciferol (Vitamin D3) 2,000 iu PO DAILY [facility] Stop: 04/29/17 08:59 Last Admin: 03/06/17 13:15 Dose: Not Given Diphenhydramine HCl (Benadryl) 25 mg PO Q6H PRN PRN Reason: Itching Stop: 04/29/17 03:39 Escitalopram Oxalate (Lexapro) 10 mg PO DAILY [facility] PRN Reason: Protocol Stop: 04/29/17 08:59 Last Admin: 03/06/17 13:15 Dose: Not Given Famotidine (Pepcid) 20 mg IVP DAILY [facility] Stop: 05/01/17 08:59 Last Admin: 03/06/17 09:35 Dose: 20 mg Fludrocortisone Acetate (Florinef) 0.1 mg PO BID [facility] Stop: 04/29/17 08:59 Last Admin: 03/06/17 12:43 Dose: Not Given Diltiazem HCl 125 mg/ Dextrose 125 mls @ 10 mls/hr IV TITR [facility]; 10 MG/HR PRN Reason: Protocol Stop: 04/29/17 04:14 Last Titration: 03/02/17 09:20 Dose: 0 mg/hr, 0 mls/hr Tigecycline 50 mg/ Sodium (Chloride) 100 mls @ 100 mls/hr IV Q12H [facility] Stop: 04/30/17 11:29 Last Admin: 03/06/17 11:30 Dose: 100 mls/hr Multivitamins/Minerals 10 ml/Amino Acids/Electrolytes/ Fat Emulsion Intravenous / Dextrose 1,440 mls @ 60 mls/hr IV .Q24H [facility] Stop: 05/02/17 15:59 Last Admin: 03/05/17 17:14 Dose: 60 mls/hr Amikacin Sulfate 300 mg/ (Dextrose) 101.2 mls @ 100 mls/hr IV PRN PRN PRN Reason: AFTER EACH DIALYSIS Stop: 05/05/17 14:59 Meropenem 500 mg/ Sodium (Chloride) 100 mls @ 100 mls/hr IV Q24H [facility] Stop: 05/05/17 08:59 Last Admin: 03/06/17 09:43 Dose: 100 mls/hr Norepinephrine Bitartrate 4 mg (/ Dextrose) 254 mls @ 142.87 mls/hr IV TITR PRN ; Protocol; 37.5 MCG/MIN PRN Reason: BP MAINTENANCE (PER PROTOCOL) Stop: 05/04/17 22:40 Last Admin: 03/06/17 11:11 Dose: 3 mcg/min, 11.43 mls/hr Insulin Aspart (Novolog Insulin Sliding Scale) 0 units SUBQ Q6HR [facility] PRN Reason: Protocol Stop: 05/03/17 00:00 Last Admin: 03/06/17 12:43 Dose: Not Given Lactobacillus Rhamnosus (Culturelle) 1 each PO DAILY [facility] Stop: 05/01/17 08:59 Last Admin: 03/06/17 13:12 Dose: Not Given Lorazepam (Ativan) 2 mg IVP Q4HR PRN; Protocol PRN Reason: Anxiety Stop: 05/04/17 20:17 Metoprolol Tartrate (Lopressor) 50 mg PO Q12HR [facility] Stop: 04/29/17 08:59 Last Admin: 03/06/17 13:12 Dose: Not Given Miconazole Nitrate (Miconazole 2% Cream) 1 appl VG BID [facility] Stop: 03/07/17 08:59 Last Admin: 03/06/17 12:49 Dose: 1 appl Miscellaneous (Clinical Monitoring) 1 ea [facility] DAILY PRN PRN Reason: RENAL Stop: 04/29/17 10:50 Miscellaneous (Vte Chemical Prophylaxis Screen/ Admission) 1 ea PRN PRN PRN Reason: PROTOCOL Stop: 04/29/17 15:40 Miscellaneous (Probiotic Screen) 1 ea PRN PRN PRN Reason: PROTOCOL Stop: 04/30/17 10:56 Miscellaneous (Tpn Per Pharmacy) 1 ea PRN PRN PRN Reason: PROTOCOL Stop: 04/30/17 18:13 Morphine Sulfate (Morphine) 2 mg IVP Q4HR PRN PRN Reason: Pain (Moderate) Stop: 04/28/17 23:23 Last Admin: 03/06/17 01:14 Dose: 2 mg Zinc Sulfate (Zinc Sulfate) 220 mg PO DAILY [facility] Stop: 04/29/17 08:59 Last Admin: 03/06/17 13:12 Dose: Not Given General: Other (intubated and sedated), no Alert HEENT: Atraumatic, PERRLA, Other (endotracheal tube noted .) Neck: Supple, +2 carotid pulse wo bruit Cardiovascular: Systolic murmurs, Other (irregularly irregular.) Lungs: Other (diffuse rhonchi throughout.) Abdomen: Bowel sounds, Soft, Obese, Other (multiple abd wounds, w/ wound vac.) Extremities: Other (ecchymosis, hematomas, petecchiae,debrided wound.), no Edema Neurological: Sensation intact, Other (stuporous) Skin: Rash, Breakdown (multiple blisters), Significant lesion (multiple bruises and ecchymosis, ischemic wounds.) Psych/Mental Status: Other (intubated and sedated) - Procedures Procedures: Procedures Procedure Code Date INSERT EMERGENCY AIRWAY 69171 02/27/17 INSERTION OF ENDOTRACHEAL AIRWAY INTO TRACHEA, VIA OPENING [id number] 02/27/17 RESPIRATORY VENTILATION, LESS THAN 24 CONSECUTIVE HOURS [id number] 02/27/17 VENT MGMT INPAT INIT DAY 66759 02/27/17 Assessment/Plan - Assessment Assessment: * DIC * DVT * RENAL FAILURE * MULTIPLE ABD WALL WOUNDS * RESPIRATORY FAILURE TX FFP, CRYOPPT MONITOR DIC PANEL KEEP OFF ANTICOAG Nutritional Asmnt/Malnutr-PDOC - Dietary Evaluation Malnutrition Findings (Please click <Entered> for more info): Nutritional Asmnt/Malnutrition Start: 02/28/17 14: 25 Text: Status: Complete Freq: Document 02/28/17 14:32 GSUN (Rec: 02/28/17 14:52 [email or web address] [email or web address]) Nutritional Asmnt/Malnutrition Patient General Information Nutritional Screening High Risk Screening Diagnosis Infectured multiple abdominal wound, sepsis, hypotension Pertinent Medical Hx/Surgical Hx DM, end stage renal failure, obesity, multiple abdominal wound, anemia Subjective Information 71 [address] consult for wounds/calciphylaxis. Pt was lethargic during visit, spoke to at bedside. Briefly explained renal diet, agreeable to plan, not suitble for extensive edu at this time. Pt appeared obese. Pt reported UBW 250lb measured 1 month ago, pt is unsure of dry weight at dialysis center. Pt reported has gradually lost weight 80lb over the past year due to poor appetite and hospitalizations. RD recommended oral supplements, pt denied, stating she has tried and threw up. Current Diet Order/ Nutrition Support Renal, 1800kcal Pertinent Medications Vitamin C, Vitamin D3, D5-0. 45ns, Pepcid, Novolog, Culturelle, Morphine, Zinc Sulfate Pertinent Labs 02/28: BUN 38H, creatinine 5H, phosphorus 5.4H Nutritional Hx/Data Height 1.63 m Height (Calculated Centimeters) 162.6 Current Weight (lbs) 113.398 kg Weight (Calculated Kilograms) 113.4 Weight (Calculated Grams) 076251.1 [place] Body Weight 120 Recent Weight Change Yes Weight Status Morbidly Obese GI Symptoms Skin Integrity/Comment: Bilateral lower extremities pitting 3+. Abdominal wounds/ calciphylaxis Estimated Nutritional Goals BEE in Kcals: Adj wt of IBW Calories/Kcals/Kg AdjBW 152.5lb/69.3kg (adjsuted to UBW) Kcals Calculated 2078-2425kcal (30-35kcal/kg) Protein: Adj wt of IBW Protein Calculated 90-104g (1.2-1.5/gkg) Fluid: ml 2078-2426ml (1ml/kcal) Nutritional Problem 3. Problem Problem Malnutrition related to Etiology unknown etiology, energy imbalance aeb Signs/Symptoms: BMI >40 2. Problem Problem Increased kcal and prot needs related to Etiology hypermetabolic state aeb Signs/Symptoms: on HD, sepsis 1. Problem Problem Impaired nutrient utilization related to Etiology end stage renal failure aeb Signs/Symptoms: on HD, BUN 38H, creatinine 5H, phosphorus 5.4H Malnutrition Related to Morbid Obesity Malnutrition related to morbid obesity BMI> or equal to 40 Query Text:(Any 1 Criteria met) Malnutrition related to morbid obesity Yes Intervention/Recommendation Comments 1. Recommend renal diet. Briefly explained renal diet, pt is agreeable to plan. Encourage PO intake. 2. Recommend removing " 1800kcal" restriction as pt is in hypermetabolic state ( sepsis, HD) and obese, requiring more than 1800kcal, weight loss not favorable at this time. 3. Pt reported poor appetite many months, RD recommend oral supplements, pt declined. Expected Outcomes/Goals Expected Outcomes/Goals 1. PO intake to meet at least 75% of estimated nutritional needs.
[2017-03-06] MEDS: MULTIVITAMIN IV SCH (17:14)
[2017-03-06] MEDS: AMINO ACIDS IV SCH (17:14)
[2017-03-06] MEDS: [UNRECOGNIZED DRUG - OTHER] IV SCH (17:14)
[2017-03-06] MEDS: ELECTROLYTES IV SCH (17:14)
[2017-03-06] MEDS: INTRALIPIDS IV SCH (17:14)
[2017-03-06] MEDS: Chlorhexidine Gluconate 0.12% 15mL Mouthwash MM SCH (20:28)
[2017-03-06] MEDS ORDERED: Amikacin 500 mg in D5W 100mL (Q24HR) IV SCH (21:00)
--- NOTE | 2017-03-07 00:16 | Consultation ---
DATE OF CONSULTATION: 03/06/2017 REASON FOR CONSULTATION: Respiratory failure. CONSULT NOTE: This is a 71-year-old female known to me from [place], basically has following problem. Persistent abdominal wall infection, ____ with subcu anticoagulation with heparin and/or other anticoagulation subsequently, over the time has gotten more worse, has been drained, debrided multiple times, subsequently that was accompanied by recurrent fluid accumulation because of chronic renal failure, on hemodialysis as well as poor cooperation in view of her severe obstructive sleep apnea syndrome, but declining CPAP or BiPAP at [facility]. Apparently because of multiple reasons including insurance, the patient was discharged, but apparently the patient was brought up here. Subsequently, the patient has been taken for the surgery and the patient last night got respiratory failure with tachypnea and I was asked to see this patient for further care and necessary treatment after intubation. Currently patient is sedated, meaningful detailed history from the patient herself is not available. PAST MEDICAL HISTORY: As noted above. PHYSICAL EXAMINATION: GENERAL: This is an elderly looking female, currently intubated, sedated, not in any acute distress. VITAL SIGNS: Temperature 99-100, heart rate is 110-120, blood pressure 135/86, saturation 100% on 50% of oxygen. HEENT: Examination of the head is essentially unremarkable. Pupils appear to be equal and reacting to light. Conjunctivae are slightly pallor. Oral cavity limited exam. NECK: Veins not visualized. CHEST: Shows diminished air entry in the left base. HEART: Regular. ABDOMEN: Shows multiple areas with a dressing with would VAC. EXTREMITIES: Shows lot of areas of ecchymosis with poor pulsations with slight trace of peripheral edema. LABORATORY DATA: The patient's post-intubation chest x-ray looks okay with some haziness on the left side with slight increased bronchovascular marking and white count is 23,000, hemoglobin 8.3 and d-dimer is 2170 and patient's blood gases this morning shows significant respiratory alkalosis with FIO2 of 100%, which has been cut down to 50 since this morning. ASSESSMENT: 1.The patient has acute respiratory failure, multifactorial. 2.Severe abdominal sepsis complicated by renal failure with significant fluid overload, also complicated by obstructive sleep apnea syndrome with poor compliance. PLANS AND SUGGESTIONS: We will cut down the tidal volume, decrease FIO2. We will continue aggressive dialysis, wound care as well as IV antibiotics and we will see how she does in the next few days' time and go from there. JOB# [id number]
[2017-03-07] MEDS: INSULIN ASPART SLIDING SCALE 100 UNITS/ML UNIT SUBQ SCH ×4 (00:37→18:50)
--- NOTE | 2017-03-07 00:39 | Progress Notes ---
DATE: 03/06/2017 LOCATION: [facility] ICU bed #7. PHYSICAL EXAMINATION: GENERAL: The patient is intubated on a respirator, not responding, anuric. VITAL SIGNS: Heart rate 130, blood pressure 135/66, and respiration rate 29. Yesterday's intake 3118 and output 100. HEART: Regular, tachycardia. LUNGS: Rhonchi on both sides. ABDOMEN: Soft. Abdominal wall wound noted. EXTREMITIES: Echymoses edema 1+. LABORATORY DATA: WBC 23.3, hemoglobin 8.3, and platelet 86,000. Sodium 131, potassium 4.4, chloride 102, CO2 of 19.1, BUN 44, creatinine 4.3, calcium 8.4, blood sugar 77, and phosphorus 3.9. ASSESSMENT: 1. Chronic kidney disease 5, on chronic hemodialysis, Sunday, , and Sunday and if necessary on Sunday or Sunday. 2. Anemia. 3. Heparin-induced thrombocytopenia. 4. Respiratory failure. 5. Sepsis. 6. Thrombocytopenia. 7. Obesity. 8. Obstructive sleep apnea. PLAN: Dialysis will be done today. We will try to do more ultrafiltration. No heparin on dialysis. Hemodialysis will be on and then Sunday. Discussed with the nursing staff and dialysis nurse. JOB# [id number]
[2017-03-07] MEDS ORDERED: Diltiazem 5 mg/mL 25mL Vial IV ONE (01:29)
[2017-03-07] MEDS: Morphine Sulfate 2 mg/mL 1mL Syr IVP PRN (02:14)
[2017-03-07] MEDS: Albuterol/Ipratropium Neb 3 ML AERS HHN SCH ×5 (03:00→22:41)
[2017-03-07] MEDS: Budesonide 0.5 Mg/2 mL Ud HHN SCH ×2 (07:19→19:09)
[2017-03-07] MEDS: Lactobacillus Rhamnosus 10 Billion CFU Capsule PO SCH (08:12)
[2017-03-07] MEDS: Meropenem 500 MG in Sodium Chloride 0.9% 100 ML IV SCH (08:24)
[2017-03-07] MEDS: MICONAZOLE 2% VG SCH (08:25)
[2017-03-07] MEDS: Venelex 60gm Tube TP SCH (08:26)
[2017-03-07 08:46] LABS: MEAN CELL VOLUME 91.3 fl (81-100); MEAN PLATELET VOLUME 9.1 fl; RED CELL DISTRIBUTION WIDTH 17.1 % (11.5-20.0)
[2017-03-07 08:55] LABS: ALB/GLOB RATIO 0.8 (1.0-1.8); BILIRUBIN,DIRECT 3.68 mg/dL (0.0-0.2); BILIRUBIN,TOTAL 6.1 mg/dL (0.3-1.0); BUN/CREATININE RATIO 10.3; CALCIUM SERUM 8.2 mg/dL (8.6-10.3); CARBON DIOXIDE 21.1 mEq/L (21.0-31.0); CREATININE - SERUM 3.3 mg/dL (0.6-1.2); PHOSPHOROUS 2.5 mg/dL (2.5-5.0); POTASSIUM SERUM 4.1 mEq/L (3.5-5.1)
[2017-03-07 08:59] LABS: INR 1.59 (0.5-1.4)
[2017-03-07 09:04] LABS: HEMOGLOBIN 6.4 gm/dL (11.7-16.1); WHITE BLOOD COUNT 24.8 Th/cmm (4.8-10.8)
[2017-03-07 09:05] LABS: HEMATOCRIT 18.2 % (35.0-45.0); PLATELET COUNT 54 Th/cmm (150-400)
[2017-03-07 09:15] LABS: BAND NEUTROPHILE 9 % (0-10); EOSINOPHIL 1 % (0-5); METAMYELOCYTE 1 % (0-0); MYELOCYTE 1 %; NEUTROPHILS 81 % (40-80); TOTAL CELLS COUNTED 100
[2017-03-07 09:16] LABS: ANISOCYTOSIS 1+; PLATELET ESTIMATE DECREASED PLATELETS (NORMAL); PLATELET MORPHOLOGY PLATELET CLUMPS SEEN (NORMAL); POIKILOCYTOSIS 1+
--- NOTE | 2017-03-07 10:08 | Diagnostic Imaging Report ---
CHEST X-RAY: AP view INDICATION: Shortness of breath COMPARISON: Chest x-ray 03/06/2017 FINDINGS: Support devices are stable accounting for differences in positioning. Mild improvement in congestive changes are seen with small left effusion. Cardiomegaly is noted. IMPRESSION: Mild improvement in congestive changes. Small left effusion is noted. Pneumonia of the left lung base cannot be excluded.
--- NOTE | 2017-03-07 10:37 | General Progress Note ---
Subjective - Review of Systems Service Date: 03/07/17 Events since last encounter: still unrespnsive Objective - Results Result Diagrams: 03/07/17 08:20 03/07/17 08:20 Recent Labs: Laboratory Last Values WBC 24.8 Th/cmm (4.8-10.8) H* 03/07/17 08:20 RBC 2.00 Mil/cmm (3.80-5.20) L 03/07/17 08:20 Hgb 6.4 gm/dL (11.7-16.1) L* D 03/07/17 08:20 Hct 18.2 % (35.0-45.0) L* D 03/07/17 08:20 MCV 91.3 fl (81-100) 03/07/17 08:20 MCH 32.0 pg (27.0-31.0) H 03/07/17 08:20 MCHC Differential 35.0 pg (28.0-36.0) 03/07/17 08:20 RDW 17.1 % (11.5-20.0) 03/07/17 08:20 Plt Count 54 Th/cmm (150-400) L D 03/07/17 08:20 MPV 9.1 fl 03/07/17 08:20 Neutrophils % 82.3 % (40.0-80.0) H 03/04/17 05:20 Band Neutrophils % 9 % (0-10) 03/07/17 08:20 Lymphocytes % 11.2 % (20.0-50.0) L 03/04/17 05:20 Monocytes % 5.3 % (2.0-10.0) 03/04/17 05:20 Eosinophils % 1.1 % (0.0-5.0) 03/04/17 05:20 Basophils % 0.1 % (0.0-2.0) 03/04/17 05:20 Neutrophils (Manual) 81 % (40-80) H 03/07/17 08:20 Lymphocytes 5 % (20-50) L 03/07/17 08:20 Monocytes 1 % (2-10) L 03/07/17 08:20 Eosinophils 1 % (0-5) 03/07/17 08:20 Basophils 1 % (0-3) 03/01/17 12:26 Metamyelocytes 1 % (0-0) H 03/07/17 08:20 Myelocytes 1 % 03/07/17 08:20 Atypical Lymphocytes 1 % 03/07/17 08:20 Hypochromia 1+ 03/03/17 06:29 Platelet Estimate DECREASED PLATELETS (NORMAL) 03/07/17 08:20 Platelet Morphology PLATELET CLUMPS SEEN (NORMAL) 03/07/17 08:20 Polychromasia 1+ 03/03/17 06:29 Poikilocytosis 1+ 03/07/17 08:20 Anisocytosis 1+ 03/07/17 08:20 RBC Morph Micro Appear ABNORMAL (NORMAL) 03/07/17 08:20 Plt Count 54 Th/cmm (150-750) L D 03/07/17 08:20 PT 17.0 SECONDS (9.5-11.5) H 03/07/17 08:20 INR 1.59 (0.5-1.4) H 03/07/17 08:20 PTT (Actin FS) 45.4 SECONDS (26.0-38.0) H 03/07/17 08:20 Fibrinogen 171.0 mg/dL (200.0-400.0) L 03/07/17 08:20 D-Dimer 3550 ng/mL (100-400) H 03/07/17 08:20 Specimen Source Arterial 03/06/17 09:54 Sample Site Right Radial 03/06/17 09:54 pH 7.56 (7.35-7.45) H* 03/06/17 09:54 pCO2 23.0 mmHg (35.0-45.0) L* 03/06/17 09:54 pO2 197.0 mmHg (80.0-100.0) H 03/06/17 09:54 HCO3 24.9 mEq/L (20.0-26.0) 03/06/17 09:54 Base Excess -0.1 mEq/L (-3.0-3.0) 03/06/17 09:54 O2 Saturation 100.0 % (92.0-100.0) 03/06/17 09:54 Chaz Test Positive 03/06/17 09:54 Vent Rate 12 03/06/17 09:54 Inspired O2 50 03/06/17 09:54 Tidal Volume 600 03/06/17 09:54 PEEP NA 03/06/17 09:54 Pressure (ins/psv/peep) NA 03/06/17 09:54 Critical Value LZHANG 03/06/17 09:54 Sodium 133 mEq/L (136-145) L 03/07/17 08:20 Potassium 4.1 mEq/L (3.5-5.1) 03/07/17 08:20 Chloride 102 mEq/L (98-107) 03/07/17 08:20 Carbon Dioxide 21.1 mEq/L (21.0-31.0) 03/07/17 08:20 Anion Gap 14.0 (7.0-16.0) 03/07/17 08:20 BUN 34 mg/dL (7-25) H 03/07/17 08:20 Creatinine 3.3 mg/dL (0.6-1.2) H 03/07/17 08:20 Est GFR ( Amer) 17.8 ml/min (>90) 03/07/17 08:20 Est GFR (Non-Af Amer) 14.7 ml/min 03/07/17 08:20 BUN/Creatinine Ratio 10.3 03/07/17 08:20 Glucose 107 mg/dL (70-105) H 03/07/17 08:20 POC Glucose 96 MG/DL (70-105) 03/07/17 05:51 Hemoglobin A1c % 4.6 % (4.0-6.0) 02/27/17 19:30 Whole Bld Lactic Acid 3.51 mmol/L (0.60-1.99) H* 03/07/17 08:20 Calcium 8.2 mg/dL (8.6-10.3) L 03/07/17 08:20 Phosphorus 2.5 mg/dL (2.5-5.0) 03/07/17 08:20 Magnesium 2.0 mg/dL (1.9-2.7) 03/07/17 08:20 Total Bilirubin 6.1 mg/dL (0.3-1.0) H 03/07/17 08:20 Direct Bilirubin 3.68 mg/dL (0.0-0.2) H 03/07/17 08:20 AST 98 U/L (13-39) H 03/07/17 08:20 ALT 19 U/L (7-52) 03/07/17 08:20 Alkaline Phosphatase 233 U/L (34-104) H 03/07/17 08:20 Ammonia 167 umol/L (16-53) H 03/07/17 08:20 Troponin I 0.05 ng/mL (0.01-0.05) 03/07/17 08:20 Total Protein 4.8 gm/dL (6.0-8.3) L 03/07/17 08:20 Albumin 2.1 gm/dL (3.7-5.3) L 03/07/17 08:20 Globulin 2.7 gm/dL 03/07/17 08:20 Albumin/Globulin Ratio 0.8 (1.0-1.8) L 03/07/17 08:20 Prealbumin <3 mg/dL (10-36) L 03/05/17 07:45 Triglycerides 112 mg/dL (<150) 03/03/17 06:29 Cholesterol < 25 mg/dL (<200) 03/05/17 07:45 Gentamicin Peak 8.8 ug/ml (4.0-8.0) 03/01/17 10:00 Gentamicin Trough ug/ml (0.2-2.0) 03/01/17 08:30 Serum Ketones NEGATIVE (NEGATIVE) 02/27/17 19:30 Hepatitis A IgM Ab Negative (Negative) 03/02/17 05:36 Hep Bs Antigen Negative (Negative) 03/02/17 05:36 Hep B Core IgM Ab Negative (Negative) 03/02/17 05:36 Hepatitis C Antibody <0.1 s/co ratio (0.0-0.9) 03/02/17 05:36 Blood Type A POSITIVE 03/06/17 14:30 Antibody Screen NEGATIVE 03/06/17 14:30 Crossmatch See Detail 03/03/17 09:10 - Physical Exam Vitals and I&O: Vital Signs Temp 98.1 F 03/07/17 08:00 Pulse 113 03/07/17 09:15 Resp 12 03/07/17 09:00 BP 112/51 03/07/17 09:15 Pulse Ox 94 03/07/17 09:00 Intake & Output 03/06/17 03/07/17 03/07/17 18:59 06:59 18:59 Intake Total 5480.752 5228.12 1182.202 Output Total 1420 300 Balance 1872.791 -171.88 882.202 Weight (lbs) 130.181 kg 124.738 kg Intake: Intake, IV Amount 1872.791 198.12 192.202 Diltiazem 125 mg In 0 Dextrose 5% 100 ml @ 10 MG/HR 10 mls/hr IV TITR [facility] Rx#:[id number] Meropenem 500 mg In 100 100 Sodium Chloride 0.9% 100 ml @ 100 mls/hr IV Q24H [facility] Rx#:[id number] Multivitamin Inj 10 ml In 1440 Amino Acids 3% / Electrolytes 700 ml In Intralipids 20% 50 ml In Dextrose 10% 680 ml @ 60 mls/hr IV .Q24H [facility] Rx#: [id number] Norepinephrine 4 mg In 232.791 198.12 92.202 Dextrose 5% 250 ml @ 37.5 MCG/MIN 142.87 mls/hr IV TITR PRN Rx#:[id number] Tigecycline 50 mg In 100 Sodium Chloride 0.9% 100 ml @ 100 mls/hr IV Q12H [facility] Rx#:[id number] TPN/PPN 750 540 Blood Product 300 450 Output: Drainage 120 Left Lower Abdomen 75 Right Lower Abdomen 45 Hemodialysis 1300 Other 300 Active Medications: Current Medications Acetaminophen/Hydrocodone Bitart (Lamont 10 Mg/325 Mg) 1 tab PO Q6H PRN PRN Reason: Pain (Moderate) Stop: 05/04/17 09:27 Albuterol Sulfate (Albuterol 2.5mg/3ml Neb Ud) 2.5 mg HHN Q2H PRN PRN Reason: Shortness of Breath Stop: 04/29/17 03:59 Last Admin: 03/05/17 19:08 Dose: 2.5 mg Albuterol/Ipratropium (Duoneb Neb) 3 ml HHN Q4HRT [facility] Stop: 05/04/17 22:59 Last Admin: 03/07/17 07:19 Dose: 3 ml Ascorbic Acid (Vitamin C) 500 mg PO DAILY [facility] Stop: 04/29/17 08:59 Last Admin: 03/07/17 08:11 Dose: Not Given Budesonide (Pulmicort) 0.25 mg HHN BIDRT [facility] Stop: 05/05/17 06:59 Last Admin: 03/07/17 07:19 Dose: 0.25 mg Chlorhexidine Gluconate (Peridex) 15 ml MM 799,1999 [facility] Stop: 05/05/17 19:59 Last Admin: 03/06/17 20:28 Dose: 15 ml Cholecalciferol (Vitamin D3) 2,000 iu PO DAILY [facility] Stop: 04/29/17 08:59 Last Admin: 03/07/17 08:11 Dose: Not Given Diphenhydramine HCl (Benadryl) 25 mg PO Q6H PRN PRN Reason: Itching Stop: 04/29/17 03:39 Escitalopram Oxalate (Lexapro) 10 mg PO DAILY [facility] PRN Reason: Protocol Stop: 04/29/17 08:59 Last Admin: 03/07/17 08:11 Dose: Not Given Famotidine (Pepcid) 20 mg IVP DAILY [facility] Stop: 05/01/17 08:59 Last Admin: 03/07/17 08:24 Dose: 20 mg Fludrocortisone Acetate (Florinef) 0.1 mg PO BID [facility] Stop: 04/29/17 08:59 Last Admin: 03/07/17 08:10 Dose: Not Given Diltiazem HCl 125 mg/ Dextrose 125 mls @ 10 mls/hr IV TITR [facility]; 10 MG/HR PRN Reason: Protocol Stop: 04/29/17 04:14 Last Admin: 03/07/17 01:33 Dose: 5 mg/hr, 5 mls/hr Tigecycline 50 mg/ Sodium (Chloride) 100 mls @ 100 mls/hr IV Q12H [facility] Stop: 04/30/17 11:29 Last Admin: 03/07/17 00:29 Dose: 100 mls/hr Multivitamins/Minerals 10 ml/Amino Acids/Electrolytes/ Fat Emulsion Intravenous / Dextrose 1,440 mls @ 60 mls/hr IV .Q24H [facility] Stop: 05/02/17 15:59 Last Admin: 03/06/17 17:14 Dose: 60 mls/hr Amikacin Sulfate 300 mg/ (Dextrose) 101.2 mls @ 100 mls/hr IV PRN PRN PRN Reason: AFTER EACH DIALYSIS Stop: 05/05/17 14:59 Meropenem 500 mg/ Sodium (Chloride) 100 mls @ 100 mls/hr IV Q24H [facility] Stop: 05/05/17 08:59 Last Infusion: 03/07/17 09:25 Dose: Infused Norepinephrine Bitartrate 4 mg (/ Dextrose) 254 mls @ 142.87 mls/hr IV TITR PRN ; Protocol; 37.5 MCG/MIN PRN Reason: BP MAINTENANCE (PER PROTOCOL) Stop: 05/04/17 22:40 Last Titration: 03/07/17 09:15 Dose: 10 mcg/min, 38.1 mls/hr Insulin Aspart (Novolog Insulin Sliding Scale) 0 units SUBQ Q6HR [facility] PRN Reason: Protocol Stop: 05/03/17 00:00 Last Admin: 03/07/17 05:53 Dose: Not Given Lactobacillus Rhamnosus (Culturelle) 1 each PO DAILY [facility] Stop: 05/01/17 08:59 Last Admin: 03/07/17 08:12 Dose: Not Given Lorazepam (Ativan) 2 mg IVP Q4HR PRN; Protocol PRN Reason: Anxiety Stop: 05/04/17 20:17 Last Admin: 03/06/17 20:28 Dose: 2 mg Metoprolol Tartrate (Lopressor) 50 mg PO Q12HR [facility] Stop: 04/29/17 08:59 Last Admin: 03/07/17 08:12 Dose: Not Given Miscellaneous (Clinical Monitoring) 1 ea [facility] DAILY PRN PRN Reason: RENAL Stop: 04/29/17 10:50 Miscellaneous (Vte Chemical Prophylaxis Screen/ Admission) 1 ea [facility] PRN PRN PRN Reason: PROTOCOL Stop: 04/29/17 15:40 Miscellaneous (Probiotic Screen) 1 ea PRN PRN PRN Reason: PROTOCOL Stop: 04/30/17 10:56 Miscellaneous (Tpn Per Pharmacy) 1 ea [facility] PRN PRN PRN Reason: PROTOCOL Stop: 04/30/17 18:13 Morphine Sulfate (Morphine) 2 mg IVP Q4HR PRN PRN Reason: Pain (Moderate) Stop: 04/28/17 23:23 Last Admin: 03/07/17 02:14 Dose: 2 mg Zinc Sulfate (Zinc Sulfate) 220 mg PO DAILY [facility] Stop: 04/29/17 08:59 Last Admin: 03/07/17 08:12 Dose: Not Given General: Other (intubated and sedated), no Alert HEENT: Atraumatic, PERRLA, Other (endotracheal tube noted .) Neck: Supple, +2 carotid pulse wo bruit Cardiovascular: Systolic murmurs, Other (irregularly irregular.) Lungs: Other (diffuse rhonchi throughout.) Abdomen: Bowel sounds, Soft, Obese, Other (multiple abd wounds, w/ wound vac.) Extremities: Other (ecchymosis, hematomas, petecchiae,debrided wound.), no Edema Neurological: Sensation intact, Other (stuporous) Skin: Rash, Breakdown (multiple blisters), Significant lesion (multiple bruises and ecchymosis, ischemic wounds.) Psych/Mental Status: Other (intubated and sedated) - Procedures Procedures: Procedures Procedure Code Date EXCISION OF ABD SUBCU/FASCIA, OPEN APPROACH [id number] 02/27/17 EXCISION OF R LOW LEG SUBCU/FASCIA, OPEN APPROACH [id number] 02/27/17 INSERT EMERGENCY AIRWAY 52213 02/27/17 INSERTION OF ENDOTRACHEAL AIRWAY INTO TRACHEA, VIA OPENING [id number] 02/27/17 REMOVAL OF PRESSURE SORE 21063 02/27/17 RESPIRATORY VENTILATION, 24-96 CONSECUTIVE HOURS [id number] 02/27/17 VENT MGMT INPAT INIT DAY 67635 02/27/17 Assessment/Plan - Assessment Assessment: * DIC * DVT * RENAL FAILURE * MULTIPLE ABD WALL WOUNDS * RESPIRATORY FAILURE TX FFP, PRBC MONITOR DIC PANEL KEEP OFF ANTICOAG Nutritional Asmnt/Malnutr-PDOC - Dietary Evaluation Malnutrition Findings (Please click <Entered> for more info): Nutritional Asmnt/Malnutrition Start: 02/28/17 14: 25 Text: Status: Complete Freq: Document 02/28/17 14:32 GSUN (Rec: 02/28/17 14:52 [email or web address] [email or web address]) Nutritional Asmnt/Malnutrition Patient General Information Nutritional Screening High Risk Screening Diagnosis Infectured multiple abdominal wound, sepsis, hypotension Pertinent Medical Hx/Surgical Hx DM, end stage renal failure, obesity, multiple abdominal wound, anemia Subjective Information 71 [address] consult for wounds/calciphylaxis. Pt was lethargic during visit, spoke to at bedside. Briefly explained renal diet, agreeable to plan, not suitble for extensive edu at this time. Pt appeared obese. Pt reported UBW 250lb measured 1 month ago, pt is unsure of dry weight at dialysis center. Pt reported has gradually lost weight 80lb over the past year due to poor appetite and hospitalizations. RD recommended oral supplements, pt denied, stating she has tried and threw up. Current Diet Order/ Nutrition Support Renal, 1800kcal Pertinent Medications Vitamin C, Vitamin D3, D5-0. 45ns, Pepcid, Novolog, Culturelle, Morphine, Zinc Sulfate Pertinent Labs 02/28: BUN 38H, creatinine 5H, phosphorus 5.4H Nutritional Hx/Data Height 1.63 m Height (Calculated Centimeters) 162.6 Current Weight (lbs) 113.398 kg Weight (Calculated Kilograms) 113.4 Weight (Calculated Grams) 574366.1 [place] Body Weight 120 Recent Weight Change Yes Weight Status Morbidly Obese GI Symptoms Skin Integrity/Comment: Bilateral lower extremities pitting 3+. Abdominal wounds/ calciphylaxis Estimated Nutritional Goals BEE in Kcals: Adj wt of IBW Calories/Kcals/Kg AdjBW 152.5lb/69.3kg (adjsuted to UBW) Kcals Calculated 2079-2426kcal (30-35kcal/kg) Protein: Adj wt of IBW Protein Calculated 90-104g (1.2-1.5/gkg) Fluid: ml 2079-2426ml (1ml/kcal) Nutritional Problem 3. Problem Problem Malnutrition related to Etiology unknown etiology, energy imbalance aeb Signs/Symptoms: BMI >40 2. Problem Problem Increased kcal and prot needs related to Etiology hypermetabolic state aeb Signs/Symptoms: on HD, sepsis 1. Problem Problem Impaired nutrient utilization related to Etiology end stage renal failure aeb Signs/Symptoms: on HD, BUN 38H, creatinine 5H, phosphorus 5.4H Malnutrition Related to Morbid Obesity Malnutrition related to morbid obesity BMI> or equal to 40 Query Text:(Any 1 Criteria met) Malnutrition related to morbid obesity Yes Intervention/Recommendation Comments 1. Recommend renal diet. Briefly explained renal diet, pt is agreeable to plan. Encourage PO intake. 2. Recommend removing " 1800kcal" restriction as pt is in hypermetabolic state ( sepsis, HD) and obese, requiring more than 1800kcal, weight loss not favorable at this time. 3. Pt reported poor appetite many months, RD recommend oral supplements, pt declined. Expected Outcomes/Goals Expected Outcomes/Goals 1. PO intake to meet at least 75% of estimated nutritional needs.
[2017-03-07 10:50] LABS: ABG SOURCE Arterial; ALLEN TEST YES; BE(B) 1.3 mEq/L (-3.0-3.0); FIO2 40; HCO3 25.5 mEq/L (20.0-26.0); MECH RATE 12; MECH VT 500; pH 7.46 (7.35-7.45)
[2017-03-07] MEDS: Chlorhexidine Gluconate 0.12% 15mL Mouthwash MM SCH ×2 (11:55→20:45)
--- NOTE | 2017-03-07 13:50 | Infectious Disease Prog Note ---
Infectious Disease Subjective - Review of Systems Service Date: 03/07/17 Subjective: Unresponsive. No fever. s/p Debridement. Infectious Disease Objective - Results Result Diagrams: 03/07/17 08:20 03/07/17 08:20 Recent Labs: Laboratory Last Values WBC 24.8 Th/cmm (4.8-10.8) H* 03/07/17 08:20 RBC 2.00 Mil/cmm (3.80-5.20) L 03/07/17 08:20 Hgb 6.4 gm/dL (11.7-16.1) L* D 03/07/17 08:20 Hct 18.2 % (35.0-45.0) L* D 03/07/17 08:20 MCV 91.3 fl (81-100) 03/07/17 08:20 MCH 32.0 pg (27.0-31.0) H 03/07/17 08:20 MCHC Differential 35.0 pg (28.0-36.0) 03/07/17 08:20 RDW 17.1 % (11.5-20.0) 03/07/17 08:20 Plt Count 54 Th/cmm (150-400) L D 03/07/17 08:20 MPV 9.1 fl 03/07/17 08:20 Neutrophils % 82.3 % (40.0-80.0) H 03/04/17 05:20 Band Neutrophils % 9 % (0-10) 03/07/17 08:20 Lymphocytes % 11.2 % (20.0-50.0) L 03/04/17 05:20 Monocytes % 5.3 % (2.0-10.0) 03/04/17 05:20 Eosinophils % 1.1 % (0.0-5.0) 03/04/17 05:20 Basophils % 0.1 % (0.0-2.0) 03/04/17 05:20 Neutrophils (Manual) 81 % (40-80) H 03/07/17 08:20 Lymphocytes 5 % (20-50) L 03/07/17 08:20 Monocytes 1 % (2-10) L 03/07/17 08:20 Eosinophils 1 % (0-5) 03/07/17 08:20 Basophils 1 % (0-3) 03/01/17 12:26 Metamyelocytes 1 % (0-0) H 03/07/17 08:20 Myelocytes 1 % 03/07/17 08:20 Atypical Lymphocytes 1 % 03/07/17 08:20 Hypochromia 1+ 03/03/17 06:29 Platelet Estimate DECREASED PLATELETS (NORMAL) 03/07/17 08:20 Platelet Morphology PLATELET CLUMPS SEEN (NORMAL) 03/07/17 08:20 Polychromasia 1+ 03/03/17 06:29 Poikilocytosis 1+ 03/07/17 08:20 Anisocytosis 1+ 03/07/17 08:20 RBC Morph Micro Appear ABNORMAL (NORMAL) 03/07/17 08:20 Plt Count 54 Th/cmm (150-750) L D 03/07/17 08:20 PT 17.0 SECONDS (9.5-11.5) H 03/07/17 08:20 INR 1.59 (0.5-1.4) H 03/07/17 08:20 PTT (Actin FS) 45.4 SECONDS (26.0-38.0) H 03/07/17 08:20 Fibrinogen 171.0 mg/dL (200.0-400.0) L 03/07/17 08:20 D-Dimer 3550 ng/mL (100-400) H 03/07/17 08:20 Specimen Source Arterial 03/07/17 10:44 Sample Site Right Radial 03/07/17 10:44 pH 7.46 (7.35-7.45) H 03/07/17 10:44 pCO2 35.0 mmHg (35.0-45.0) 03/07/17 10:44 pO2 40.0 mmHg (80.0-100.0) L* 03/07/17 10:44 HCO3 25.5 mEq/L (20.0-26.0) 03/07/17 10:44 Base Excess 1.3 mEq/L (-3.0-3.0) 03/07/17 10:44 O2 Saturation 78.0 % (92.0-100.0) L 03/07/17 10:44 Chaz Test YES 03/07/17 10:44 Vent Rate 12 03/07/17 10:44 Inspired O2 40 03/07/17 10:44 Tidal Volume 500 03/07/17 10:44 PEEP NA 03/07/17 10:44 Pressure (ins/psv/peep) NA 03/07/17 10:44 Critical Value E.NUNN 03/07/17 10:44 Sodium 133 mEq/L (136-145) L 03/07/17 08:20 Potassium 4.1 mEq/L (3.5-5.1) 03/07/17 08:20 Chloride 102 mEq/L (98-107) 03/07/17 08:20 Carbon Dioxide 21.1 mEq/L (21.0-31.0) 03/07/17 08:20 Anion Gap 14.0 (7.0-16.0) 03/07/17 08:20 BUN 34 mg/dL (7-25) H 03/07/17 08:20 Creatinine 3.3 mg/dL (0.6-1.2) H 03/07/17 08:20 Est GFR ( Amer) 17.8 ml/min (>90) 03/07/17 08:20 Est GFR (Non-Af Amer) 14.7 ml/min 03/07/17 08:20 BUN/Creatinine Ratio 10.3 03/07/17 08:20 Glucose 107 mg/dL (70-105) H 03/07/17 08:20 POC Glucose 100 MG/DL (70 - 105) 03/07/17 12:03 Hemoglobin A1c % 4.6 % (4.0-6.0) 02/27/17 19:30 Whole Bld Lactic Acid 3.33 mmol/L (0.60-1.99) H* 03/07/17 10:48 Calcium 8.2 mg/dL (8.6-10.3) L 03/07/17 08:20 Phosphorus 2.5 mg/dL (2.5-5.0) 03/07/17 08:20 Magnesium 2.0 mg/dL (1.9-2.7) 03/07/17 08:20 Total Bilirubin 6.1 mg/dL (0.3-1.0) H 03/07/17 08:20 Direct Bilirubin 3.68 mg/dL (0.0-0.2) H 03/07/17 08:20 AST 98 U/L (13-39) H 03/07/17 08:20 ALT 19 U/L (7-52) 03/07/17 08:20 Alkaline Phosphatase 233 U/L (34-104) H 03/07/17 08:20 Ammonia 167 umol/L (16-53) H 03/07/17 08:20 Troponin I 0.05 ng/mL (0.01-0.05) 03/07/17 08:20 Total Protein 4.8 gm/dL (6.0-8.3) L 03/07/17 08:20 Albumin 2.1 gm/dL (3.7-5.3) L 03/07/17 08:20 Globulin 2.7 gm/dL 03/07/17 08:20 Albumin/Globulin Ratio 0.8 (1.0-1.8) L 03/07/17 08:20 Prealbumin <3 mg/dL (10-36) L 03/05/17 07:45 Triglycerides 112 mg/dL (<150) 03/03/17 06:29 Cholesterol < 25 mg/dL (<200) 03/05/17 07:45 Gentamicin Peak 8.8 ug/ml (4.0-8.0) 03/01/17 10:00 Gentamicin Trough ug/ml (0.2-2.0) 03/01/17 08:30 Serum Ketones NEGATIVE (NEGATIVE) 02/27/17 19:30 Hepatitis A IgM Ab Negative (Negative) 03/02/17 05:36 Hep Bs Antigen Negative (Negative) 03/02/17 05:36 Hep B Core IgM Ab Negative (Negative) 03/02/17 05:36 Hepatitis C Antibody <0.1 s/co ratio (0.0-0.9) 03/02/17 05:36 Blood Type A POSITIVE 03/06/17 14:30 Antibody Screen NEGATIVE 03/06/17 14:30 Crossmatch See Detail 03/06/17 10:42 - Physical Exam Vitals and I&O: Vital Signs Temp 98.1 F 03/07/17 08:00 Pulse 116 03/07/17 11:38 Resp 12 03/07/17 09:00 BP 125/50 03/07/17 10:38 Pulse Ox 100 03/07/17 11:09 Intake & Output 03/06/17 03/07/17 03/07/17 18:59 06:59 18:59 Intake Total 1053.015 0568.12 1364.342 Output Total 1420 300 Balance 1872.791 -71.88 1064.342 Weight (lbs) 130.181 kg 124.738 kg Intake: Intake, IV Amount 1872.791 298.12 374.342 Diltiazem 125 mg In 0 46.250 Dextrose 5% 100 ml @ 10 MG/HR 10 mls/hr IV TITR [facility] Rx#:[id number] Meropenem 500 mg In 100 100 Sodium Chloride 0.9% 100 ml @ 100 mls/hr IV Q24H [facility] Rx#:[id number] Multivitamin Inj 10 ml In 1440 Amino Acids 3% / Electrolytes 700 ml In Intralipids 20% 50 ml In Dextrose 10% 680 ml @ 60 mls/hr IV .Q24H [facility] Rx#: [id number] Norepinephrine 4 mg In 232.791 198.12 228.092 Dextrose 5% 250 ml @ 37.5 MCG/MIN 142.87 mls/hr IV TITR [facility] Rx#:[id number] Tigecycline 50 mg In 100 100 Sodium Chloride 0.9% 100 ml @ 100 mls/hr IV Q12H [facility] Rx#:[id number] TPN/PPN 750 540 Blood Product 300 450 Output: Drainage 120 Left Lower Abdomen 75 Right Lower Abdomen 45 Hemodialysis 1300 Other 300 Active Medications: Current Medications Acetaminophen/Hydrocodone Bitart ([place] 10 Mg/325 Mg) 1 tab PO Q6H PRN PRN Reason: Pain (Moderate) Stop: 05/04/17 09:27 Albuterol Sulfate (Albuterol 2.5mg/3ml Neb Ud) 2.5 mg HHN Q2H PRN PRN Reason: Shortness of Breath Stop: 04/29/17 03:59 Last Admin: 03/05/17 19:08 Dose: 2.5 mg Albuterol/Ipratropium (Duoneb Neb) 3 ml HHN Q4HRT [facility] Stop: 05/04/17 22:59 Last Admin: 03/07/17 11:09 Dose: 3 ml Ascorbic Acid (Vitamin C) 500 mg PO DAILY [facility] Stop: 04/29/17 08:59 Last Admin: 03/07/17 08:11 Dose: Not Given Budesonide (Pulmicort) 0.25 mg HHN BIDRT [facility] Stop: 05/05/17 06:59 Last Admin: 03/07/17 07:19 Dose: 0.25 mg Chlorhexidine Gluconate (Peridex) 15 ml MM 799,1999 [facility] Stop: 05/05/17 19:59 Last Admin: 03/07/17 11:55 Dose: 15 ml Cholecalciferol (Vitamin D3) 2,000 iu PO DAILY [facility] Stop: 04/29/17 08:59 Last Admin: 03/07/17 08:11 Dose: Not Given Diphenhydramine HCl (Benadryl) 25 mg PO Q6H PRN PRN Reason: Itching Stop: 04/29/17 03:39 Escitalopram Oxalate (Lexapro) 10 mg PO DAILY [facility] PRN Reason: Protocol Stop: 04/29/17 08:59 Last Admin: 03/07/17 08:11 Dose: Not Given Famotidine (Pepcid) 20 mg IVP DAILY [facility] Stop: 05/01/17 08:59 Last Admin: 03/07/17 08:24 Dose: 20 mg Fludrocortisone Acetate (Florinef) 0.1 mg PO BID [facility] Stop: 04/29/17 08:59 Last Admin: 03/07/17 08:10 Dose: Not Given Diltiazem HCl 125 mg/ Dextrose 125 mls @ 10 mls/hr IV TITR [facility]; 10 MG/HR PRN Reason: Protocol Stop: 04/29/17 04:14 Last Titration: 03/07/17 10:43 Dose: 5 mg/hr, 5 mls/hr Tigecycline 50 mg/ Sodium (Chloride) 100 mls @ 100 mls/hr IV Q12H [facility] Stop: 04/30/17 11:29 Last Admin: 03/07/17 12:07 Dose: 100 mls/hr Multivitamins/Minerals 10 ml/Amino Acids/Electrolytes/ Fat Emulsion Intravenous / Dextrose 1,440 mls @ 60 mls/hr IV .Q24H [facility] Stop: 05/02/17 15:59 Last Admin: 03/06/17 17:14 Dose: 60 mls/hr Amikacin Sulfate 300 mg/ (Dextrose) 101.2 mls @ 100 mls/hr IV PRN PRN PRN Reason: AFTER EACH DIALYSIS Stop: 05/05/17 14:59 Meropenem 500 mg/ Sodium (Chloride) 100 mls @ 100 mls/hr IV Q24H [facility] Stop: 05/05/17 08:59 Last Infusion: 03/07/17 09:25 Dose: Infused Norepinephrine Bitartrate 4 mg (/ Dextrose) 254 mls @ 142.87 mls/hr IV TITR PRN ; Protocol; 37.5 MCG/MIN PRN Reason: BP MAINTENANCE (PER PROTOCOL) Stop: 05/04/17 22:40 Last Titration: 03/07/17 12:49 Dose: 12 mcg/min, 45.72 mls/hr Insulin Aspart (Novolog Insulin Sliding Scale) 0 units SUBQ Q6HR [facility] PRN Reason: Protocol Stop: 05/03/17 00:00 Last Admin: 03/07/17 12:07 Dose: Not Given Lactobacillus Rhamnosus (Culturelle) 1 each PO DAILY [facility] Stop: 05/01/17 08:59 Last Admin: 03/07/17 08:12 Dose: Not Given Lorazepam (Ativan) 2 mg IVP Q4HR PRN; Protocol PRN Reason: Anxiety Stop: 05/04/17 20:17 Last Admin: 03/06/17 20:28 Dose: 2 mg Metoprolol Tartrate (Lopressor) 50 mg PO Q12HR [facility] Stop: 04/29/17 08:59 Last Admin: 03/07/17 08:12 Dose: Not Given Miscellaneous (Clinical Monitoring) 1 ea MC DAILY PRN PRN Reason: RENAL Stop: 04/29/17 10:50 Miscellaneous (Vte Chemical Prophylaxis Screen/ Admission) 1 ea PRN PRN PRN Reason: PROTOCOL Stop: 04/29/17 15:40 Miscellaneous (Probiotic Screen) 1 ea PRN PRN PRN Reason: PROTOCOL Stop: 04/30/17 10:56 Miscellaneous (Tpn Per Pharmacy) 1 ea PRN PRN PRN Reason: PROTOCOL Stop: 04/30/17 18:13 Zinc Sulfate (Zinc Sulfate) 220 mg PO DAILY [facility] Stop: 04/29/17 08:59 Last Admin: 03/07/17 08:12 Dose: Not Given General: no acute distress, well developed, well nourished HEENT: atraumatic, normocephalic, PERRLA, EOMI, moist mucous membrane Neck: supple, thyromegaly Cardiovascular: S1S2, regular Lungs: clear to auscultation bilaterally, clear to percussion Abdomen: soft, other (lower abdominal wound extended to the back.), no tender, no distended Extremities: edema, no cyanosis, no clubbing Neurological: other (Unresponsive.), no awake, no alert, no oriented Skin: other (necrotic ulcer in right ankle , right leg, there are multiple areas of dark black lesions in her left leg, without ulcer formation.) - Procedures Procedures: Procedures Procedure Code Date EXCISION OF ABD SUBCU/FASCIA, OPEN APPROACH [id number] 02/27/17 EXCISION OF R LOW LEG SUBCU/FASCIA, OPEN APPROACH [id number] 02/27/17 INSERT EMERGENCY AIRWAY [id number] 02/27/17 INSERTION OF ENDOTRACHEAL AIRWAY INTO TRACHEA, VIA OPENING [id number] 02/27/17 REMOVAL OF PRESSURE SORE [id number] 02/27/17 RESPIRATORY VENTILATION, 24-96 CONSECUTIVE HOURS [id number] 02/27/17 VENT MGMT INPAT INIT DAY 18271 02/27/17 Infectious Disease Assmt/Plan - Assessment Assessment: 1. Leukocytosis , septic shock. 2. Infected lower abdominal wounds, worse on the left. Growing CRE. 3. Calciphylaxis of lower abdomen, legs. 4. Obesity. 5. Dm2 6. CKD 5 on HD. 7. HTN. 8. Anemia of CD. 9. s/p debridement. - Plan Plan: Will Continue tygacil, Amikacin and meropenem IV. wound care. Check VQ scan. severe calciphylaxis. wound care. poor prognosis. patient carries very high morality and morbodoty risks. Nutritional Asmnt/Malnutr-PDOC - Dietary Evaluation Malnutrition Findings (Please click <Entered> for more info): Nutritional Asmnt/Malnutrition Start: 02/28/17 14: 25 Text: Status: Complete Freq: Document 02/28/17 14:32 GSUN (Rec: 02/28/17 14:52 [email or web address] [email or web address]) Nutritional Asmnt/Malnutrition Patient General Information Nutritional Screening High Risk Screening Diagnosis Infectured multiple abdominal wound, sepsis, hypotension Pertinent Medical Hx/Surgical Hx DM, end stage renal failure, obesity, multiple abdominal wound, anemia Subjective Information 71 [address] consult for wounds/calciphylaxis. Pt was lethargic during visit, spoke to at bedside. Briefly explained renal diet, agreeable to plan, not suitble for extensive edu at this time. Pt appeared obese. Pt reported UBW 250lb measured 1 month ago, pt is unsure of dry weight at dialysis center. Pt reported has gradually lost weight 80lb over the past year due to poor appetite and hospitalizations. RD recommended oral supplements, pt denied, stating she has tried and threw up. Current Diet Order/ Nutrition Support Renal, 1800kcal Pertinent Medications Vitamin C, Vitamin D3, D5-0. 45ns, Pepcid, Novolog, Culturelle, Morphine, Zinc Sulfate Pertinent Labs 02/28: BUN 38H, creatinine 5H, phosphorus 5.4H Nutritional Hx/Data Height 1.63 m Height (Calculated Centimeters) 162.6 Current Weight (lbs) 113.398 kg Weight (Calculated Kilograms) 113.4 Weight (Calculated Grams) 956921.1 Winter Body Weight 120 Recent Weight Change Yes Weight Status Morbidly Obese GI Symptoms Skin Integrity/Comment: Bilateral lower extremities pitting 3+. Abdominal wounds/ calciphylaxis Estimated Nutritional Goals BEE in Kcals: Adj wt of IBW Calories/Kcals/Kg AdjBW 152.5lb/69.3kg (adjsuted to UBW) Kcals Calculated 2079-2426kcal (30-35kcal/kg) Protein: Adj wt of IBW Protein Calculated 90-104g (1.2-1.5/gkg) Fluid: ml 2079-2426ml (1ml/kcal) Nutritional Problem 3. Problem Problem Malnutrition related to Etiology unknown etiology, energy imbalance aeb Signs/Symptoms: BMI >40 2. Problem Problem Increased kcal and prot needs related to Etiology hypermetabolic state aeb Signs/Symptoms: on HD, sepsis 1. Problem Problem Impaired nutrient utilization related to Etiology end stage renal failure aeb Signs/Symptoms: on HD, BUN 38H, creatinine 5H, phosphorus 5.4H Malnutrition Related to Morbid Obesity Malnutrition related to morbid obesity BMI> or equal to 40 Query Text:(Any 1 Criteria met) Malnutrition related to morbid obesity Yes Intervention/Recommendation Comments 1. Recommend renal diet. Briefly explained renal diet, pt is agreeable to plan. Encourage PO intake. 2. Recommend removing " 1800kcal" restriction as pt is in hypermetabolic state ( sepsis, HD) and obese, requiring more than 1800kcal, weight loss not favorable at this time. 3. Pt reported poor appetite many months, RD recommend oral supplements, pt declined. Expected Outcomes/Goals Expected Outcomes/Goals 1. PO intake to meet at least 75% of estimated nutritional needs.
--- NOTE | 2017-03-07 15:01 | Pathology Report ---
[id number] Collection Date: 03/02/2017 Surgeon: Dr. Rosaura Harris Specimen Description: Debrided tissue, multiple abdominal wounds. Gross Description: Received in formalin are multiple irregular fragments of zurita-rodríguez necrotic-appearing soft tissue ranging from 2.0 to 7.5 cm in greatest dimension. Sectioning shows degenerated, necrotic-appearing tissue. Sewage Plant Supervisor sections are submitted in two cassettes labeled A1 and A2. Microscopic Description: The histologic sections show ulcerated, necrotic fibrofatty tissue with areas of suppurative inflammation consisting of large collections of neutrophils. Diagnosis: Necrotic fibroadipose tissue consistent with debridement. [facility]# [id number]
--- NOTE | 2017-03-07 15:11 | Diagnostic Imaging Report ---
CHEST X-RAY: AP view INDICATION: ET tube placement COMPARISON: Chest x-ray 03/07/2017 at 8:04 AM FINDINGS: ET tube is seen with tip 3 cm above the Dory. Right PICC line is stable. Right dialysis catheter is stable. Increasing CHF is seen with left effusion and bilateral lung infiltrates. Cardiomegaly is noted. IMPRESSION: ET tube with tip 3 cm above the Dory. Increasing CHF with left effusion. Bilateral pulmonary infiltrates are also noted.
--- NOTE | 2017-03-07 15:13 | Pathology Report ---
[id number] Collection Date: 03/05/2017 Surgeon: Dr. Rosaura Harris Specimen Description: Debrided tissue, nonhealing abdominal wound. Gross Description: Received in formalin is a 10 x 8.5 x 2.0 cm excision of zurita-rodríguez skin showing reddish-rodríguez discoloration on the skin surface. Sectioning shows diffuse softening and hemorrhagic degeneration throughout the specimen. Mattress Specialist sections are submitted in two cassettes labeled A1 and A2. Microscopic Description: The histologic sections show degenerated skin and subcutaneous tissue with extensive hemorrhagic necrosis with areas of suppurative inflammation consisting of large collections of neutrophils. Diagnosis: Ulcerated necrotic skin showing hemorrhagic necrosis, consistent with debridement. [facility]# [id number]
[2017-03-07] MEDS: Albuterol Nebulizer 2.5mg/3mL HHN PRN (15:26)
[2017-03-07] MEDS: [UNRECOGNIZED DRUG - OTHER] IV SCH (16:48)
[2017-03-07] MEDS: AMINO ACIDS IV SCH (16:48)
[2017-03-07] MEDS: ELECTROLYTES IV SCH (16:48)
[2017-03-07] MEDS: INTRALIPIDS IV SCH (16:48)
[2017-03-07] MEDS: MULTIVITAMIN IV SCH (16:48)
--- NOTE | 2017-03-07 18:15 | General Progress Note ---
Subjective - Review of Systems Subjective: Patient is seen and examined. Patient is sedated and intubated. Patient's currently on IV Levophed drip. Unresponsive. Patient's currently getting a VQ scan as per infectious disease to rule out pulmonary embolism. Objective - Results Result Diagrams: 03/07/17 08:20 03/07/17 08:20 Recent Labs: Laboratory Last Values WBC 24.8 Th/cmm (4.8-10.8) H* 03/07/17 08:20 RBC 2.00 Mil/cmm (3.80-5.20) L 03/07/17 08:20 Hgb 6.4 gm/dL (11.7-16.1) L* D 03/07/17 08:20 Hct 18.2 % (35.0-45.0) L* D 03/07/17 08:20 MCV 91.3 fl (81-100) 03/07/17 08:20 MCH 32.0 pg (27.0-31.0) H 03/07/17 08:20 MCHC Differential 35.0 pg (28.0-36.0) 03/07/17 08:20 RDW 17.1 % (11.5-20.0) 03/07/17 08:20 Plt Count 54 Th/cmm (150-400) L D 03/07/17 08:20 MPV 9.1 fl 03/07/17 08:20 Neutrophils % 82.3 % (40.0-80.0) H 03/04/17 05:20 Band Neutrophils % 9 % (0-10) 03/07/17 08:20 Lymphocytes % 11.2 % (20.0-50.0) L 03/04/17 05:20 Monocytes % 5.3 % (2.0-10.0) 03/04/17 05:20 Eosinophils % 1.1 % (0.0-5.0) 03/04/17 05:20 Basophils % 0.1 % (0.0-2.0) 03/04/17 05:20 Neutrophils (Manual) 81 % (40-80) H 03/07/17 08:20 Lymphocytes 5 % (20-50) L 03/07/17 08:20 Monocytes 1 % (2-10) L 03/07/17 08:20 Eosinophils 1 % (0-5) 03/07/17 08:20 Basophils 1 % (0-3) 03/01/17 12:26 Metamyelocytes 1 % (0-0) H 03/07/17 08:20 Myelocytes 1 % 03/07/17 08:20 Atypical Lymphocytes 1 % 03/07/17 08:20 Hypochromia 1+ 03/03/17 06:29 Platelet Estimate DECREASED PLATELETS (NORMAL) 03/07/17 08:20 Platelet Morphology PLATELET CLUMPS SEEN (NORMAL) 03/07/17 08:20 Polychromasia 1+ 03/03/17 06:29 Poikilocytosis 1+ 03/07/17 08:20 Anisocytosis 1+ 03/07/17 08:20 RBC Morph Micro Appear ABNORMAL (NORMAL) 03/07/17 08:20 Plt Count 54 Th/cmm (150-750) L D 03/07/17 08:20 PT 17.0 SECONDS (9.5-11.5) H 03/07/17 08:20 INR 1.59 (0.5-1.4) H 03/07/17 08:20 PTT (Actin FS) 45.4 SECONDS (26.0-38.0) H 03/07/17 08:20 Fibrinogen 171.0 mg/dL (200.0-400.0) L 03/07/17 08:20 D-Dimer 3550 ng/mL (100-400) H 03/07/17 08:20 Specimen Source Arterial 03/07/17 10:44 Sample Site Right Radial 03/07/17 10:44 pH 7.46 (7.35-7.45) H 03/07/17 10:44 pCO2 35.0 mmHg (35.0-45.0) 03/07/17 10:44 pO2 40.0 mmHg (80.0-100.0) L* 03/07/17 10:44 HCO3 25.5 mEq/L (20.0-26.0) 03/07/17 10:44 Base Excess 1.3 mEq/L (-3.0-3.0) 03/07/17 10:44 O2 Saturation 78.0 % (92.0-100.0) L 03/07/17 10:44 Chaz Test YES 03/07/17 10:44 Vent Rate 12 03/07/17 10:44 Inspired O2 40 03/07/17 10:44 Tidal Volume 500 03/07/17 10:44 PEEP NA 03/07/17 10:44 Pressure (ins/psv/peep) NA 03/07/17 10:44 Critical Value EBALJIT 03/07/17 10:44 Sodium 133 mEq/L (136-145) L 03/07/17 08:20 Potassium 4.1 mEq/L (3.5-5.1) 03/07/17 08:20 Chloride 102 mEq/L (98-107) 03/07/17 08:20 Carbon Dioxide 21.1 mEq/L (21.0-31.0) 03/07/17 08:20 Anion Gap 14.0 (7.0-16.0) 03/07/17 08:20 BUN 34 mg/dL (7-25) H 03/07/17 08:20 Creatinine 3.3 mg/dL (0.6-1.2) H 03/07/17 08:20 Est GFR ( Amer) 17.8 ml/min (>90) 03/07/17 08:20 Est GFR (Non-Af Amer) 14.7 ml/min 03/07/17 08:20 BUN/Creatinine Ratio 10.3 03/07/17 08:20 Glucose 107 mg/dL (70-105) H 03/07/17 08:20 POC Glucose 100 MG/DL (70 - 105) 03/07/17 12:03 Hemoglobin A1c % 4.6 % (4.0-6.0) 02/27/17 19:30 Whole Bld Lactic Acid 3.33 mmol/L (0.60-1.99) H* 03/07/17 10:48 Calcium 8.2 mg/dL (8.6-10.3) L 03/07/17 08:20 Phosphorus 2.5 mg/dL (2.5-5.0) 03/07/17 08:20 Magnesium 2.0 mg/dL (1.9-2.7) 03/07/17 08:20 Total Bilirubin 6.1 mg/dL (0.3-1.0) H 03/07/17 08:20 Direct Bilirubin 3.68 mg/dL (0.0-0.2) H 03/07/17 08:20 AST 98 U/L (13-39) H 03/07/17 08:20 ALT 19 U/L (7-52) 03/07/17 08:20 Alkaline Phosphatase 233 U/L (34-104) H 03/07/17 08:20 Ammonia 167 umol/L (16-53) H 03/07/17 08:20 Troponin I 0.05 ng/mL (0.01-0.05) 03/07/17 08:20 Total Protein 4.8 gm/dL (6.0-8.3) L 03/07/17 08:20 Albumin 2.1 gm/dL (3.7-5.3) L 03/07/17 08:20 Globulin 2.7 gm/dL 03/07/17 08:20 Albumin/Globulin Ratio 0.8 (1.0-1.8) L 03/07/17 08:20 Prealbumin <3 mg/dL (10-36) L 03/05/17 07:45 Triglycerides 112 mg/dL (<150) 03/03/17 06:29 Cholesterol < 25 mg/dL (<200) 03/05/17 07:45 Gentamicin Peak 8.8 ug/ml (4.0-8.0) 03/01/17 10:00 Gentamicin Trough ug/ml (0.2-2.0) 03/01/17 08:30 Serum Ketones NEGATIVE (NEGATIVE) 02/27/17 19:30 Hepatitis A IgM Ab Negative (Negative) 03/02/17 05:36 Hep Bs Antigen Negative (Negative) 03/02/17 05:36 Hep B Core IgM Ab Negative (Negative) 03/02/17 05:36 Hepatitis C Antibody <0.1 s/co ratio (0.0-0.9) 03/02/17 05:36 Blood Type A POSITIVE 03/06/17 14:30 Antibody Screen NEGATIVE 03/06/17 14:30 Crossmatch See Detail 03/06/17 10:42 - Physical Exam Vitals and I&O: Vital Signs Temp 98.3 F 03/07/17 15:00 Pulse 107 03/07/17 17:16 Resp 56 03/07/17 15:00 BP 96/36 03/07/17 15:30 Pulse Ox 100 03/07/17 17:16 Intake & Output 08/03/1503/07/17 03/07/17 18:59 06:59 18:59 Intake Total 3469.541 3352.12 3099.322 Output Total 1420 300 Balance 1872.791 -71.88 2799.322 Weight (lbs) 130.181 kg 124.738 kg Intake: Intake, IV Amount 1872.791 298.12 2109.322 Diltiazem 125 mg In 0 46.250 Dextrose 5% 100 ml @ 10 MG/HR 10 mls/hr IV TITR [facility] Rx#:[id number] Meropenem 500 mg In 100 100 Sodium Chloride 0.9% 100 ml @ 100 mls/hr IV Q24H [facility] Rx#:[id number] Multivitamin Inj 10 ml In 1440 1414 Amino Acids 3% / Electrolytes 700 ml In Intralipids 20% 50 ml In Dextrose 10% 680 ml @ 60 mls/hr IV .Q24H [facility] Rx#: [id number] Norepinephrine 4 mg In 232.791 198.12 449.072 Dextrose 5% 250 ml @ 37.5 MCG/MIN 142.87 mls/hr IV TITR PRN Rx#:[id number] Tigecycline 50 mg In 100 100 100 Sodium Chloride 0.9% 100 ml @ 100 mls/hr IV Q12H [facility] Rx#:[id number] TPN/PPN 750 540 Blood Product 300 450 Output: Drainage 120 Left Lower Abdomen 75 Right Lower Abdomen 45 Hemodialysis 1300 Other 300 Active Medications: Current Medications Acetaminophen/Hydrocodone Bitart ([place] 10 Mg/325 Mg) 1 tab PO Q6H PRN PRN Reason: Pain (Moderate) Stop: 05/04/17 09:27 Albuterol Sulfate (Albuterol 2.5mg/3ml Neb Ud) 2.5 mg HHN Q2H PRN PRN Reason: Shortness of Breath Stop: 04/29/17 03:59 Last Admin: 03/07/17 15:26 Dose: 2.5 mg Albuterol/Ipratropium (Duoneb Neb) 3 ml HHN Q4HRT [facility] Stop: 05/04/17 22:59 Last Admin: 03/07/17 11:09 Dose: 3 ml Ascorbic Acid (Vitamin C) 500 mg PO DAILY [facility] Stop: 04/29/17 08:59 Last Admin: 03/07/17 08:11 Dose: Not Given Budesonide (Pulmicort) 0.25 mg HHN BIDRT [facility] Stop: 05/05/17 06:59 Last Admin: 03/07/17 07:19 Dose: 0.25 mg Chlorhexidine Gluconate (Peridex) 15 ml MM 799,1999 [facility] Stop: 05/05/17 19:59 Last Admin: 03/07/17 11:55 Dose: 15 ml Cholecalciferol (Vitamin D3) 2,000 iu PO DAILY [facility] Stop: 04/29/17 08:59 Last Admin: 03/07/17 08:11 Dose: Not Given Diphenhydramine HCl (Benadryl) 25 mg PO Q6H PRN PRN Reason: Itching Stop: 04/29/17 03:39 Escitalopram Oxalate (Lexapro) 10 mg PO DAILY [facility] PRN Reason: Protocol Stop: 04/29/17 08:59 Last Admin: 03/07/17 08:11 Dose: Not Given Famotidine (Pepcid) 20 mg IVP DAILY [facility] Stop: 05/01/17 08:59 Last Admin: 03/07/17 08:24 Dose: 20 mg Fludrocortisone Acetate (Florinef) 0.1 mg PO BID [facility] Stop: 04/29/17 08:59 Last Admin: 03/07/17 16:31 Dose: Not Given Diltiazem HCl 125 mg/ Dextrose 125 mls @ 10 mls/hr IV TITR [facility]; 10 MG/HR PRN Reason: Protocol Stop: 04/29/17 04:14 Last Titration: 03/07/17 10:43 Dose: 5 mg/hr, 5 mls/hr Tigecycline 50 mg/ Sodium (Chloride) 100 mls @ 100 mls/hr IV Q12H [facility] Stop: 04/30/17 11:29 Last Infusion: 03/07/17 13:07 Dose: Infused Multivitamins/Minerals 10 ml/Amino Acids/Electrolytes/ Fat Emulsion Intravenous / Dextrose 1,440 mls @ 60 mls/hr IV .Q24H [facility] Stop: 05/02/17 15:59 Last Admin: 03/07/17 16:48 Dose: 60 mls/hr Amikacin Sulfate 300 mg/ (Dextrose) 101.2 mls @ 100 mls/hr IV PRN PRN PRN Reason: After ea. HD on MWF Stop: 05/05/17 14:59 Meropenem 500 mg/ Sodium (Chloride) 100 mls @ 100 mls/hr IV Q24H [facility] Stop: 05/05/17 08:59 Last Infusion: 03/07/17 09:25 Dose: Infused Norepinephrine Bitartrate 4 mg (/ Dextrose) 254 mls @ 142.87 mls/hr IV TITR PRN ; Protocol; 37.5 MCG/MIN PRN Reason: BP MAINTENANCE (PER PROTOCOL) Stop: 05/04/17 22:40 Last Titration: 03/07/17 17:39 Dose: 10 mcg/min, 38.1 mls/hr Amikacin Sulfate 300 mg/ (Dextrose) 101.2 mls @ 100 mls/hr IV TuThSa [facility] Stop: 05/07/17 15:49 Insulin Aspart (Novolog Insulin Sliding Scale) 0 units SUBQ Q6HR [facility] PRN Reason: Protocol Stop: 05/03/17 00:00 Last Admin: 03/07/17 12:07 Dose: Not Given Lactobacillus Rhamnosus (Culturelle) 1 each PO DAILY [facility] Stop: 05/01/17 08:59 Last Admin: 03/07/17 08:12 Dose: Not Given Lorazepam (Ativan) 2 mg IVP Q4HR PRN; Protocol PRN Reason: Anxiety Stop: 05/04/17 20:17 Last Admin: 03/06/17 20:28 Dose: 2 mg Metoprolol Tartrate (Lopressor) 50 mg PO Q12HR [facility] Stop: 04/29/17 08:59 Last Admin: 03/07/17 08:12 Dose: Not Given Miscellaneous (Clinical Monitoring) 1 ea [facility] DAILY PRN PRN Reason: RENAL Stop: 04/29/17 10:50 Miscellaneous (Vte Chemical Prophylaxis Screen/ Admission) 1 ea MC PRN PRN PRN Reason: PROTOCOL Stop: 04/29/17 15:40 Miscellaneous (Probiotic Screen) 1 ea MC PRN PRN PRN Reason: PROTOCOL Stop: 04/30/17 10:56 Miscellaneous (Tpn Per Pharmacy) 1 ea MC PRN PRN PRN Reason: PROTOCOL Stop: 04/30/17 18:13 Zinc Sulfate (Zinc Sulfate) 220 mg PO DAILY [facility] Stop: 04/29/17 08:59 Last Admin: 03/07/17 08:12 Dose: Not Given General: Other (intubated and sedated), no Alert HEENT: Atraumatic, PERRLA, Other (endotracheal tube noted .) Neck: Supple, +2 carotid pulse wo bruit Cardiovascular: Systolic murmurs, Other (irregularly irregular.) Lungs: Other (diffuse rhonchi throughout.) Abdomen: Bowel sounds, Soft, Obese, Other (multiple abd wounds, w/ wound vac.) Extremities: Other (ecchymosis, hematomas, petecchiae,debrided wound.), no Edema Neurological: Sensation intact, Other (stuporous) Skin: Rash, Breakdown (multiple blisters), Significant lesion (multiple bruises and ecchymosis, ischemic wounds.) Psych/Mental Status: Other (intubated and sedated) - Procedures Procedures: Procedures Procedure Code Date EXCISION OF ABD SUBCU/FASCIA, OPEN APPROACH [id number] 02/27/17 EXCISION OF R LOW LEG SUBCU/FASCIA, OPEN APPROACH [id number] 02/27/17 INSERT EMERGENCY AIRWAY [id number] 02/27/17 INSERTION OF ENDOTRACHEAL AIRWAY INTO TRACHEA, VIA OPENING [id number] 02/27/17 REMOVAL OF PRESSURE SORE [id number] 02/27/17 RESPIRATORY VENTILATION, 24-96 CONSECUTIVE HOURS [id number] 02/27/17 VENT MGMT INPAT INIT DAY [id number] 02/27/17 Assessment/Plan - Assessment Assessment: Septic shock. Multiple infected wounds on abdomen and extremities status post debridement with wound VAC. End-stage renal disease on hemodialysis. Hypertension. Acute respiratory failure requiring endotracheal intubation and mechanical ventilation. Coronary artery disease. Possible ARDS. Severe thrombocytopenia secondary to DIC and possible medication related. Anemia of chronic kidney disease and anemia of inflammation. Chronic atrial fibrillation. DIC positive. History of DVT and jugular venous thrombosis. Heparin induced thrombocytopenia history. Diffuse DJD. Bed confined. Guarded prognosis. - Plan Plan: ICU status. Vent support. HHN. Guarded prognosis. Pulmo consult and follow up. IV antibiotics as per ID. Hemodialysis as schedule. Wound care as per surgery. Cardiac monitoring. Hematology consultation and follow up. Cardiology consultation and follow-up General nursing care ID follow-up and follow the recommendations Follow labs. Follow-up consultants recommendations. Prognosis guarded. ICU care. Anticoagulation therapy. Chronic management of her chronic illnesses. Care plan reviewed and discussed with RN and . Nutritional Asmnt/Malnutr-PDOC - Dietary Evaluation Malnutrition Findings (Please click <Entered> for more info): Nutritional Asmnt/Malnutrition Start: 02/28/17 14: 25 Text: Status: Complete Freq: Document 02/28/17 14:32 GSUN (Rec: 02/28/17 14:52 [email or web address] [email or web address]) Nutritional Asmnt/Malnutrition Patient General Information Nutritional Screening High Risk Screening Diagnosis Infectured multiple abdominal wound, sepsis, hypotension Pertinent Medical Hx/Surgical Hx DM, end stage renal failure, obesity, multiple abdominal wound, anemia Subjective Information 71 [address] consult for wounds/calciphylaxis. Pt was lethargic during visit, spoke to at bedside. Briefly explained renal diet, agreeable to plan, not suitble for extensive edu at this time. Pt appeared obese. Pt reported UBW 250lb measured 1 month ago, pt is unsure of dry weight at dialysis center. Pt reported has gradually lost weight 80lb over the past year due to poor appetite and hospitalizations. RD recommended oral supplements, pt denied, stating she has tried and threw up. Current Diet Order/ Nutrition Support Renal, 1800kcal Pertinent Medications Vitamin C, Vitamin D3, D5-0. 45ns, Pepcid, Novolog, Culturelle, Morphine, Zinc Sulfate Pertinent Labs /: BUN 38H, creatinine 5H, phosphorus 5.4H Nutritional Hx/Data Height 1.63 m Height (Calculated Centimeters) 162.6 Current Weight (lbs) 113.398 kg Weight (Calculated Kilograms) 113.4 Weight (Calculated Grams) 077867.1 [place] Body Weight 120 Recent Weight Change Yes Weight Status Morbidly Obese GI Symptoms Skin Integrity/Comment: Bilateral lower extremities pitting 3+. Abdominal wounds/ calciphylaxis Estimated Nutritional Goals BEE in Kcals: Adj wt of IBW Calories/Kcals/Kg AdjBW 152.5lb/69.3kg (adjsuted to UBW) Kcals Calculated 2079-2426kcal (30-35kcal/kg) Protein: Adj wt of IBW Protein Calculated 90-104g (1.2-1.5/gkg) Fluid: ml 2079-2426ml (1ml/kcal) Nutritional Problem 3. Problem Problem Malnutrition related to Etiology unknown etiology, energy imbalance aeb Signs/Symptoms: BMI >40 2. Problem Problem Increased kcal and prot needs related to Etiology hypermetabolic state aeb Signs/Symptoms: on HD, sepsis 1. Problem Problem Impaired nutrient utilization related to Etiology end stage renal failure aeb Signs/Symptoms: on HD, BUN 38H, creatinine 5H, phosphorus 5.4H Malnutrition Related to Morbid Obesity Malnutrition related to morbid obesity BMI> or equal to 40 Query Text:(Any 1 Criteria met) Malnutrition related to morbid obesity Yes Intervention/Recommendation Comments 1. Recommend renal diet. Briefly explained renal diet, pt is agreeable to plan. Encourage PO intake. 2. Recommend removing " 1800kcal" restriction as pt is in hypermetabolic state ( sepsis, HD) and obese, requiring more than 1800kcal, weight loss not favorable at this time. 3. Pt reported poor appetite many months, RD recommend oral supplements, pt declined. Expected Outcomes/Goals Expected Outcomes/Goals 1. PO intake to meet at least 75% of estimated nutritional needs.
[2017-03-08] MEDS: INSULIN ASPART SLIDING SCALE 100 UNITS/ML UNIT SUBQ SCH ×5 (00:01→23:56)
--- NOTE | 2017-03-08 01:27 | Progress Notes ---
DATE: 03/07/2017 PROBLEM LIST: 1. Acute respiratory failure. 2. Metabolic syndrome. 3. Abdominal well abscesses status post surgery. 4. Altered state of mind with tachypnea. SYMPTOMS: Nil. The patient is quite tachypneic, currently on assist control mode of ventilator, not in any acute distress. Currently undergoing dialysis. PHYSICAL EXAMINATION: VITAL SIGNS: The patient's temperature is around 99-100, pulse is 110-120, blood pressure 124/80, saturation 100% on 30% of oxygen. NECK: Veins not visualized. CHEST: Shows scattered rales and rhonchi bilaterally with generalized diminished air entry. HEART: Regular, tachycardic. ABDOMEN: Shows wound VAC, otherwise unremarkable. LABORATORY DATA: The patient's white count is 24,000, hemoglobin 6.4, significant elevation of D-dimer, as well as the fibrinogen. ABG, pO2 is 40 this morning, not too sure this is a venous blood and electrolytes are okay with creatinine 3.3. ASSESSMENT: The patient clinically doing poorly with persistent respiratory failure, renal failure, abdominal wall abscesses with surgery done. PLANS AND SUGGESTIONS: We will continue current treatment, prognosis appears to be very much guarded. JOB# [id number]
[2017-03-08] MEDS: Albuterol/Ipratropium Neb 3 ML AERS HHN SCH ×6 (02:01→23:04)
[2017-03-08] MEDS ORDERED: Norepinephrine 4 mg/4mL Vial IV ONE (02:41)
[2017-03-08 05:50] LABS: MEAN CELL VOLUME 92.6 fl (81-100); MEAN CORPUSCULAR HEMOGLOBIN 31.7 pg (27.0-31.0); MEAN CORPUSCULAR HGB CONC 34.2 pg (28.0-36.0); MEAN PLATELET VOLUME 9.5 fl; RED BLOOD COUNT 2.72 Mil/cmm (3.80-5.20); RED CELL DISTRIBUTION WIDTH 15.6 % (11.5-20.0)
[2017-03-08 05:55] LABS: INR 1.68 (0.5-1.4)
[2017-03-08 05:59] LABS: ALB/GLOB RATIO 0.7 (1.0-1.8); ANION GAP 8.4 (7.0-16.0); BILIRUBIN,TOTAL 5.9 mg/dL (0.3-1.0); BUN/CREATININE RATIO 9.6; CALCIUM SERUM 8.1 mg/dL (8.6-10.3); CARBON DIOXIDE 26.9 mEq/L (21.0-31.0); CREATININE - SERUM 2.7 mg/dL (0.6-1.2); POTASSIUM SERUM 3.3 mEq/L (3.5-5.1)
[2017-03-08 06:00] LABS: MAGNESIUM 1.8 mg/dL (1.9-2.7); PHOSPHOROUS 1.9 mg/dL (2.5-5.0)
[2017-03-08 06:03] LABS: HEMATOCRIT 25.1 % (35.0-45.0); HEMOGLOBIN 8.6 gm/dL (11.7-16.1); PLATELET COUNT 37 Th/cmm (150-400); WHITE BLOOD COUNT 19.4 Th/cmm (4.8-10.8)
[2017-03-08 06:39] LABS: TSH 4.18 uIU/ml (0.34-5.60)
[2017-03-08] MEDS: Budesonide 0.5 Mg/2 mL Ud HHN SCH ×2 (06:51→19:02)
--- NOTE | 2017-03-08 08:14 | Diagnostic Imaging Report ---
Nuclear medicine VQ scan HISTORY: Shortness of breath, rule out pulmonary embolus COMPARISON: Chest x-ray the same day Technique/procedure: Exam is limited due to patient's medical condition and only limited views were unable to be obtained. For the ventilation portion of examination 32.7 mCi of technetium labeled DTPA was administered via aerosol and multiple scintigraphic images of the lungs were obtained. For the perfusion portion of examination 5.2 millicuries of technetium 99 labeled MAA was administered intravenously and multiple scintigraphic images of the lungs were obtained. A left effusion is noted when compared to recent chest x-ray. No V/Q mismatches identified. IMPRESSION: No scintigraphic evidence of pulmonary embolus.
[2017-03-08] MEDS: Lactobacillus Rhamnosus 10 Billion CFU Capsule PO SCH (08:18)
[2017-03-08] MEDS: Chlorhexidine Gluconate 0.12% 15mL Mouthwash MM SCH ×2 (08:45→20:30)
[2017-03-08] MEDS: Venelex 60gm Tube TP SCH (08:45)
[2017-03-08] MEDS: Meropenem 500 MG in Sodium Chloride 0.9% 100 ML IV SCH (08:47)
--- NOTE | 2017-03-08 09:21 | Diagnostic Imaging Report ---
Exam: Portable chest examination HISTORY: Shortness of breath congestion Findings: Portable [place] 0832 hours was reviewed no prior studies available comparison The study demonstrates cardiomegaly congestion. Bilateral interstitial diffuse infiltrates are noted superimposed left pleural effusion. Endotracheal tube at the betzy. Right subclavian catheter terminates. Indicated. The visualized bony thorax intact. IMPRESSION: 1. Diffuse interstitial infiltrates with left lower lobe consolidation pneumonia and effusion 2. Congestive heart failure. 3. Follow-up examination recommended
[2017-03-08 09:32] LABS: ANISOCYTOSIS 1+; BAND NEUTROPHILE 8 % (0-10); NEUTROPHILS 67 % (40-80); PLATELET ESTIMATE DECREASED PLATELETS (NORMAL); TOTAL CELLS COUNTED 100
[2017-03-08 09:33] LABS: PLATELET MORPHOLOGY NORMAL (NORMAL)
[2017-03-08 09:52] LABS: HCO3 27.3 mEq/L (20.0-26.0); pH 7.31 (7.35-7.45)
[2017-03-08 09:53] LABS: ABG SOURCE Arterial; ALLEN TEST Positive; CRITICAL VALUES REPORTED BY ACELIS; FIO2 70; MECH RATE 12; MECH VT 500
--- NOTE | 2017-03-08 10:06 | General Progress Note ---
Subjective - Review of Systems Service Date: 03/08/17 Subjective: unresponsive Objective - Results Result Diagrams: 03/08/17 04:52 03/08/17 04:52 Recent Labs: Laboratory Last Values WBC 19.4 Th/cmm (4.8-10.8) H D 03/08/17 04:52 RBC 2.72 Mil/cmm (3.80-5.20) L 03/08/17 04:52 Hgb 8.6 gm/dL (11.7-16.1) L D 03/08/17 04:52 Hct 25.1 % (35.0-45.0) L D 03/08/17 04:52 MCV 92.6 fl (81-100) 03/08/17 04:52 MCH 31.7 pg (27.0-31.0) H 03/08/17 04:52 MCHC Differential 34.2 pg (28.0-36.0) 03/08/17 04:52 RDW 15.6 % (11.5-20.0) 03/08/17 04:52 Plt Count 37 Th/cmm (150-400) L D 03/08/17 04:52 MPV 9.5 fl 03/08/17 04:52 Neutrophils % 82.3 % (40.0-80.0) H 03/04/17 05:20 Band Neutrophils % 8 % (0-10) 03/08/17 04:52 Lymphocytes % 11.2 % (20.0-50.0) L 03/04/17 05:20 Monocytes % 5.3 % (2.0-10.0) 03/04/17 05:20 Eosinophils % 1.1 % (0.0-5.0) 03/04/17 05:20 Basophils % 0.1 % (0.0-2.0) 03/04/17 05:20 Neutrophils (Manual) 67 % (40-80) 03/08/17 04:52 Lymphocytes 16 % (20-50) L 03/08/17 04:52 Monocytes 9 % (2-10) 03/08/17 04:52 Eosinophils 1 % (0-5) 03/07/17 08:20 Basophils 1 % (0-3) 03/01/17 12:26 Metamyelocytes 1 % (0-0) H 03/07/17 08:20 Myelocytes 1 % 03/07/17 08:20 Atypical Lymphocytes 1 % 03/07/17 08:20 Hypochromia 1+ 03/03/17 06:29 Platelet Estimate DECREASED PLATELETS (NORMAL) 03/08/17 04:52 Platelet Morphology NORMAL (NORMAL) 03/08/17 04:52 Polychromasia 1+ 03/03/17 06:29 Poikilocytosis 1+ 03/07/17 08:20 Anisocytosis 1+ 03/08/17 04:52 RBC Morph Micro Appear ABNORMAL (NORMAL) 03/08/17 04:52 Plt Count 37 Th/cmm (150-750) L D 03/08/17 04:52 PT 18.0 SECONDS (9.5-11.5) H 03/08/17 04:52 INR 1.68 (0.5-1.4) H 03/08/17 04:52 PTT (Actin FS) 51.7 SECONDS (26.0-38.0) H 03/08/17 04:52 Fibrinogen 216.0 mg/dL (200.0-400.0) 03/08/17 04:52 D-Dimer 3510 ng/mL (100-400) H 03/08/17 04:52 Specimen Source Arterial 03/08/17 09:30 Sample Site Left Radial 03/08/17 09:30 pH 7.31 (7.35-7.45) L 03/08/17 09:30 pCO2 61.0 mmHg (35.0-45.0) H* 03/08/17 09:30 pO2 136.0 mmHg (80.0-100.0) H 03/08/17 09:30 HCO3 27.3 mEq/L (20.0-26.0) H 03/08/17 09:30 Base Excess 3.0 mEq/L (-3.0-3.0) 03/08/17 09:30 O2 Saturation 99.0 % (92.0-100.0) 03/08/17 09:30 Chaz Test Positive 03/08/17 09:30 Vent Rate 12 03/08/17 09:30 Inspired O2 70 03/08/17 09:30 Tidal Volume 500 03/08/17 09:30 PEEP 0 03/08/17 09:30 Pressure (ins/psv/peep) NA 03/08/17 09:30 Critical Value ACELIS 03/08/17 09:30 Sodium 134 mEq/L (136-145) L 03/08/17 04:52 Potassium 3.3 mEq/L (3.5-5.1) L 03/08/17 04:52 Chloride 102 mEq/L (98-107) 03/08/17 04:52 Carbon Dioxide 26.9 mEq/L (21.0-31.0) 03/08/17 04:52 Anion Gap 8.4 (7.0-16.0) 03/08/17 04:52 BUN 26 mg/dL (7-25) H 03/08/17 04:52 Creatinine 2.7 mg/dL (0.6-1.2) H 03/08/17 04:52 Est GFR ( Amer) 22.5 ml/min (>90) 03/08/17 04:52 Est GFR (Non-Af Amer) 18.6 ml/min 03/08/17 04:52 BUN/Creatinine Ratio 9.6 03/08/17 04:52 Glucose 139 mg/dL (70-105) H 03/08/17 04:52 POC Glucose 152 MG/DL (70 - 105) H 03/07/17 23:59 Hemoglobin A1c % 4.6 % (4.0-6.0) 02/27/17 19:30 Whole Bld Lactic Acid 3.33 mmol/L (0.60-1.99) H* 03/07/17 10:48 Calcium 8.1 mg/dL (8.6-10.3) L 03/08/17 04:52 Phosphorus 1.9 mg/dL (2.5-5.0) L 03/08/17 04:52 Magnesium 1.8 mg/dL (1.9-2.7) L 03/08/17 04:52 Total Bilirubin 5.9 mg/dL (0.3-1.0) H 03/08/17 04:52 Direct Bilirubin 3.68 mg/dL (0.0-0.2) H 03/07/17 08:20 AST 62 U/L (13-39) H 03/08/17 04:52 ALT 13 U/L (7-52) 03/08/17 04:52 Alkaline Phosphatase 194 U/L (34-104) H 03/08/17 04:52 Ammonia 186 umol/L (16-53) H 03/08/17 04:52 Troponin I 0.05 ng/mL (0.01-0.05) 03/07/17 08:20 Total Protein 5.0 gm/dL (6.0-8.3) L 03/08/17 04:52 Albumin 2.0 gm/dL (3.7-5.3) L 03/08/17 04:52 Globulin 3.0 gm/dL 03/08/17 04:52 Albumin/Globulin Ratio 0.7 (1.0-1.8) L 03/08/17 04:52 Prealbumin <3 mg/dL (10-36) L 03/05/17 07:45 Triglycerides 112 mg/dL (<150) 03/03/17 06:29 Cholesterol < 25 mg/dL (<200) 03/05/17 07:45 TSH 4.18 uIU/ml (0.34-5.60) 03/08/17 04:52 Gentamicin Peak 8.8 ug/ml (4.0-8.0) 03/01/17 10:00 Gentamicin Trough ug/ml (0.2-2.0) 03/01/17 08:30 Serum Ketones NEGATIVE (NEGATIVE) 02/27/17 19:30 Hepatitis A IgM Ab Negative (Negative) 03/02/17 05:36 Hep Bs Antigen Negative (Negative) 03/02/17 05:36 Hep B Core IgM Ab Negative (Negative) 03/02/17 05:36 Hepatitis C Antibody <0.1 s/co ratio (0.0-0.9) 03/02/17 05:36 Blood Type A POSITIVE 03/06/17 14:30 Antibody Screen NEGATIVE 03/06/17 14:30 Crossmatch See Detail 03/06/17 10:42 - Physical Exam Vitals and I&O: Vital Signs Temp 98.1 F 03/08/17 04:00 Pulse 107 03/08/17 08:19 Resp 12 03/08/17 07:00 BP 94/56 03/08/17 08:19 Pulse Ox 99 03/08/17 07:00 Intake & Output 03/07/17 03/08/17 03/08/17 18:59 06:59 18:59 Intake Total 4348.532 324.172 55.753 Output Total 1600 Balance 2748.532 324.172 55.753 Weight (lbs) 134.263 kg Intake: Intake, IV Amount 2138.532 324.172 55.753 Diltiazem 125 mg In 46.250 104.208 Dextrose 5% 100 ml @ 10 MG/HR 10 mls/hr IV TITR [facility] Rx#:[id number] Meropenem 500 mg In 100 Sodium Chloride 0.9% 100 ml @ 100 mls/hr IV Q24H [facility] Rx#:[id number] Multivitamin Inj 10 ml In 1414 Amino Acids 3% / Electrolytes 700 ml In Intralipids 20% 50 ml In Dextrose 10% 680 ml @ 60 mls/hr IV .Q24H [facility] Rx#: [id number] Norepinephrine 4 mg In 478.282 219.964 55.753 Dextrose 5% 250 ml @ 37.5 MCG/MIN 142.87 mls/hr IV TITR PRN Rx#:[id number] Tigecycline 50 mg In 100 Sodium Chloride 0.9% 100 ml @ 100 mls/hr IV Q12H [facility] Rx#:[id number] Oral 0 Tube Feeding 0 TPN/PPN 1260 Blood Product 950 Lipid 0 Albumin 0 Other 0 Output: Gastric Drainage 0 Urine 0 Stool 0 Urine/Stool Mix 0 Emesis 0 Hemodialysis 1300 Other 300 Other: # Voids 0 # Bowel Movements 0 Active Medications: Current Medications Acetaminophen/Hydrocodone Bitart ([place] 10 Mg/325 Mg) 1 tab PO Q6H PRN PRN Reason: Pain (Moderate) Stop: 05/04/17 09:27 Albuterol Sulfate (Albuterol 2.5mg/3ml Neb Ud) 2.5 mg HHN Q2H PRN PRN Reason: Shortness of Breath Stop: 04/29/17 03:59 Last Admin: 03/07/17 15:26 Dose: 2.5 mg Albuterol/Ipratropium (Duoneb Neb) 3 ml HHN Q4HRT [facility] Stop: 05/04/17 22:59 Last Admin: 03/08/17 06:51 Dose: 3 ml Ascorbic Acid (Vitamin C) 500 mg PO DAILY [facility] Stop: 04/29/17 08:59 Last Admin: 03/08/17 08:18 Dose: Not Given Budesonide (Pulmicort) 0.25 mg HHN BIDRT [facility] Stop: 05/05/17 06:59 Last Admin: 03/08/17 06:51 Dose: 0.25 mg Chlorhexidine Gluconate (Peridex) 15 ml MM 799,1999 [facility] Stop: 05/05/17 19:59 Last Admin: 03/08/17 08:45 Dose: 15 ml Cholecalciferol (Vitamin D3) 2,000 iu PO DAILY [facility] Stop: 04/29/17 08:59 Last Admin: 03/08/17 08:18 Dose: Not Given Diphenhydramine HCl (Benadryl) 25 mg PO Q6H PRN PRN Reason: Itching Stop: 04/29/17 03:39 Escitalopram Oxalate (Lexapro) 10 mg PO DAILY [facility] PRN Reason: Protocol Stop: 04/29/17 08:59 Last Admin: 03/08/17 08:18 Dose: Not Given Famotidine (Pepcid) 20 mg IVP DAILY [facility] Stop: 05/01/17 08:59 Last Admin: 03/08/17 08:45 Dose: 20 mg Fludrocortisone Acetate (Florinef) 0.1 mg PO BID [facility] Stop: 04/29/17 08:59 Last Admin: 03/08/17 08:12 Dose: Not Given Diltiazem HCl 125 mg/ Dextrose 125 mls @ 10 mls/hr IV TITR [facility]; 10 MG/HR PRN Reason: Protocol Stop: 04/29/17 04:14 Last Admin: 03/08/17 04:59 Dose: 5 mg/hr, 5 mls/hr Tigecycline 50 mg/ Sodium (Chloride) 100 mls @ 100 mls/hr IV Q12H [facility] Stop: 04/30/17 11:29 Last Admin: 03/07/17 23:47 Dose: 100 mls/hr Multivitamins/Minerals 10 ml/Amino Acids/Electrolytes/ Fat Emulsion Intravenous / Dextrose 1,440 mls @ 60 mls/hr IV .Q24H [facility] Stop: 05/02/17 15:59 Last Admin: 03/07/17 16:48 Dose: 60 mls/hr Amikacin Sulfate 300 mg/ (Dextrose) 101.2 mls @ 100 mls/hr IV PRN PRN PRN Reason: After ea. HD on MWF Stop: 05/05/17 14:59 Meropenem 500 mg/ Sodium (Chloride) 100 mls @ 100 mls/hr IV Q24H [facility] Stop: 05/05/17 08:59 Last Admin: 03/08/17 08:47 Dose: 100 mls/hr Norepinephrine Bitartrate 4 mg (/ Dextrose) 254 mls @ 142.87 mls/hr IV TITR PRN ; Protocol; 37.5 MCG/MIN PRN Reason: BP MAINTENANCE (PER PROTOCOL) Stop: 05/04/17 22:40 Last Titration: 03/08/17 08:57 Dose: 8 mcg/min, 30.48 mls/hr Amikacin Sulfate 300 mg/ (Dextrose) 101.2 mls @ 100 mls/hr IV TuThSa [facility] Stop: 05/07/17 15:49 Insulin Aspart (Novolog Insulin Sliding Scale) 0 units SUBQ Q6HR [facility] PRN Reason: Protocol Stop: 05/03/17 00:00 Last Admin: 03/08/17 06:55 Dose: Not Given Lactobacillus Rhamnosus (Culturelle) 1 each PO DAILY [facility] Stop: 05/01/17 08:59 Last Admin: 03/08/17 08:18 Dose: Not Given Lorazepam (Ativan) 2 mg IVP Q4HR PRN; Protocol PRN Reason: Anxiety Stop: 05/04/17 20:17 Last Admin: 03/06/17 20:28 Dose: 2 mg Metoprolol Tartrate (Lopressor) 50 mg PO Q12HR [facility] Stop: 04/29/17 08:59 Last Admin: 03/08/17 08:19 Dose: Not Given Miscellaneous (Clinical Monitoring) 1 ea [facility] DAILY PRN PRN Reason: RENAL Stop: 04/29/17 10:50 Miscellaneous (Vte Chemical Prophylaxis Screen/ Admission) 1 ea MC PRN PRN PRN Reason: PROTOCOL Stop: 04/29/17 15:40 Miscellaneous (Probiotic Screen) 1 ea MC PRN PRN PRN Reason: PROTOCOL Stop: 04/30/17 10:56 Miscellaneous (Tpn Per Pharmacy) 1 ea MC PRN PRN PRN Reason: PROTOCOL Stop: 04/30/17 18:13 Zinc Sulfate (Zinc Sulfate) 220 mg PO DAILY [facility] Stop: 04/29/17 08:59 Last Admin: 03/08/17 08:19 Dose: Not Given General: Other (intubated and sedated), no Alert HEENT: Atraumatic, PERRLA, Other (endotracheal tube noted .) Neck: Supple, +2 carotid pulse wo bruit Cardiovascular: Systolic murmurs, Other (irregularly irregular.) Lungs: Other (diffuse rhonchi throughout.) Abdomen: Bowel sounds, Soft, Obese, Other (multiple abd wounds, w/ wound vac.) Extremities: Other (ecchymosis, hematomas, petecchiae,debrided wound.), no Edema Neurological: Sensation intact, Other (stuporous) Skin: Rash, Breakdown (multiple blisters), Significant lesion (multiple bruises and ecchymosis, ischemic wounds.) Psych/Mental Status: Other (intubated and sedated) - Procedures Procedures: Procedures Procedure Code Date EXCISION OF ABD SUBCU/FASCIA, OPEN APPROACH [id number] 02/27/17 EXCISION OF R LOW LEG SUBCU/FASCIA, OPEN APPROACH [id number] 02/27/17 INSERT EMERGENCY AIRWAY [id number] 02/27/17 INSERTION OF ENDOTRACHEAL AIRWAY INTO TRACHEA, VIA OPENING [id number] 02/27/17 REMOVAL OF PRESSURE SORE [id number] 02/27/17 RESPIRATORY VENTILATION, 24-96 CONSECUTIVE HOURS [id number] 02/27/17 VENT MGMT INPAT INIT DAY [id number] 02/27/17 Assessment/Plan - Assessment Assessment: * DIC * DVT * RENAL FAILURE * MULTIPLE ABD WALL WOUNDS * RESPIRATORY FAILURE TX FFP x 2, plt ddavp x 1 MONITOR DIC PANEL KEEP OFF ANTICOAG d/w Nutritional Asmnt/Malnutr-PDOC - Dietary Evaluation Malnutrition Findings (Please click <Entered> for more info): Nutritional Asmnt/Malnutrition Start: 02/28/17 14: 25 Text: Status: Complete Freq: Document 02/28/17 14:32 GSUN (Rec: 02/28/17 14:52 [id number]) Nutritional Asmnt/Malnutrition Patient General Information Nutritional Screening High Risk Screening Diagnosis Infectured multiple abdominal wound, sepsis, hypotension Pertinent Medical Hx/Surgical Hx DM, end stage renal failure, obesity, multiple abdominal wound, anemia Subjective Information 71 [address] consult for wounds/calciphylaxis. Pt was lethargic during visit, spoke to at bedside. Briefly explained renal diet, agreeable to plan, not suitble for extensive edu at this time. Pt appeared obese. Pt reported UBW 250lb measured 1 month ago, pt is unsure of dry weight at dialysis center. Pt reported has gradually lost weight 80lb over the past year due to poor appetite and hospitalizations. RD recommended oral supplements, pt denied, stating she has tried and threw up. Current Diet Order/ Nutrition Support Renal, 1800kcal Pertinent Medications Vitamin C, Vitamin D3, D5-0. 45ns, Pepcid, Novolog, Culturelle, Morphine, Zinc Sulfate Pertinent Labs 02/28: BUN 38H, creatinine 5H, phosphorus 5.4H Nutritional Hx/Data Height 1.63 m Height (Calculated Centimeters) 162.6 Current Weight (lbs) 113.398 kg Weight (Calculated Kilograms) 113.4 Weight (Calculated Grams) 337802.1 [place] Body Weight 120 Recent Weight Change Yes Weight Status Morbidly Obese GI Symptoms Skin Integrity/Comment: Bilateral lower extremities pitting 3+. Abdominal wounds/ calciphylaxis Estimated Nutritional Goals BEE in Kcals: Adj wt of IBW Calories/Kcals/Kg AdjBW 152.5lb/69.3kg (adjsuted to UBW) Kcals Calculated 2079-2426kcal (30-35kcal/kg) Protein: Adj wt of IBW Protein Calculated 90-104g (1.2-1.5/gkg) Fluid: ml 2079-2426ml (1ml/kcal) Nutritional Problem 3. Problem Problem Malnutrition related to Etiology unknown etiology, energy imbalance aeb Signs/Symptoms: BMI >40 2. Problem Problem Increased kcal and prot needs related to Etiology hypermetabolic state aeb Signs/Symptoms: on HD, sepsis 1. Problem Problem Impaired nutrient utilization related to Etiology end stage renal failure aeb Signs/Symptoms: on HD, BUN 38H, creatinine 5H, phosphorus 5.4H Malnutrition Related to Morbid Obesity Malnutrition related to morbid obesity BMI> or equal to 40 Query Text:(Any 1 Criteria met) Malnutrition related to morbid obesity Yes Intervention/Recommendation Comments 1. Recommend renal diet. Briefly explained renal diet, pt is agreeable to plan. Encourage PO intake. 2. Recommend removing " 1800kcal" restriction as pt is in hypermetabolic state ( sepsis, HD) and obese, requiring more than 1800kcal, weight loss not favorable at this time. 3. Pt reported poor appetite many months, RD recommend oral supplements, pt declined. Expected Outcomes/Goals Expected Outcomes/Goals 1. PO intake to meet at least 75% of estimated nutritional needs.
--- NOTE | 2017-03-08 12:17 | Infectious Disease Prog Note ---
Infectious Disease Subjective - Review of Systems Service Date: 03/08/17 Subjective: Unresponsive. intubated orally, on the venti;ator support. No fever. s/p Debridement. Infectious Disease Objective - Results Result Diagrams: 03/08/17 04:52 03/08/17 04:52 Recent Labs: Laboratory Last Values WBC 19.4 Th/cmm (4.8-10.8) H D 03/08/17 04:52 RBC 2.72 Mil/cmm (3.80-5.20) L 03/08/17 04:52 Hgb 8.6 gm/dL (11.7-16.1) L D 03/08/17 04:52 Hct 25.1 % (35.0-45.0) L D 03/08/17 04:52 MCV 92.6 fl (81-100) 03/08/17 04:52 MCH 31.7 pg (27.0-31.0) H 03/08/17 04:52 MCHC Differential 34.2 pg (28.0-36.0) 03/08/17 04:52 RDW 15.6 % (11.5-20.0) 03/08/17 04:52 Plt Count 37 Th/cmm (150-400) L D 03/08/17 04:52 MPV 9.5 fl 03/08/17 04:52 Neutrophils % 82.3 % (40.0-80.0) H 03/04/17 05:20 Band Neutrophils % 8 % (0-10) 03/08/17 04:52 Lymphocytes % 11.2 % (20.0-50.0) L 03/04/17 05:20 Monocytes % 5.3 % (2.0-10.0) 03/04/17 05:20 Eosinophils % 1.1 % (0.0-5.0) 03/04/17 05:20 Basophils % 0.1 % (0.0-2.0) 03/04/17 05:20 Neutrophils (Manual) 67 % (40-80) 03/08/17 04:52 Lymphocytes 16 % (20-50) L 03/08/17 04:52 Monocytes 9 % (2-10) 03/08/17 04:52 Eosinophils 1 % (0-5) 03/07/17 08:20 Basophils 1 % (0-3) 03/01/17 12:26 Metamyelocytes 1 % (0-0) H 03/07/17 08:20 Myelocytes 1 % 03/07/17 08:20 Atypical Lymphocytes 1 % 03/07/17 08:20 Hypochromia 1+ 03/03/17 06:29 Platelet Estimate DECREASED PLATELETS (NORMAL) 03/08/17 04:52 Platelet Morphology NORMAL (NORMAL) 03/08/17 04:52 Polychromasia 1+ 03/03/17 06:29 Poikilocytosis 1+ 03/07/17 08:20 Anisocytosis 1+ 03/08/17 04:52 RBC Morph Micro Appear ABNORMAL (NORMAL) 03/08/17 04:52 Plt Count 37 Th/cmm (150-750) L D 03/08/17 04:52 PT 18.0 SECONDS (9.5-11.5) H 03/08/17 04:52 INR 1.68 (0.5-1.4) H 03/08/17 04:52 PTT (Actin FS) 51.7 SECONDS (26.0-38.0) H 03/08/17 04:52 Fibrinogen 216.0 mg/dL (200.0-400.0) 03/08/17 04:52 D-Dimer 3510 ng/mL (100-400) H 03/08/17 04:52 Specimen Source Arterial 03/08/17 09:30 Sample Site Left Radial 03/08/17 09:30 pH 7.31 (7.35-7.45) L 03/08/17 09:30 pCO2 61.0 mmHg (35.0-45.0) H* 03/08/17 09:30 pO2 136.0 mmHg (80.0-100.0) H 03/08/17 09:30 HCO3 27.3 mEq/L (20.0-26.0) H 03/08/17 09:30 Base Excess 3.0 mEq/L (-3.0-3.0) 03/08/17 09:30 O2 Saturation 99.0 % (92.0-100.0) 03/08/17 09:30 Chaz Test Positive 03/08/17 09:30 Vent Rate 12 03/08/17 09:30 Inspired O2 70 03/08/17 09:30 Tidal Volume 500 03/08/17 09:30 PEEP 0 03/08/17 09:30 Pressure (ins/psv/peep) NA 03/08/17 09:30 Critical Value ACELIS 03/08/17 09:30 Sodium 134 mEq/L (136-145) L 03/08/17 04:52 Potassium 3.3 mEq/L (3.5-5.1) L 03/08/17 04:52 Chloride 102 mEq/L (98-107) 03/08/17 04:52 Carbon Dioxide 26.9 mEq/L (21.0-31.0) 03/08/17 04:52 Anion Gap 8.4 (7.0-16.0) 03/08/17 04:52 BUN 26 mg/dL (7-25) H 03/08/17 04:52 Creatinine 2.7 mg/dL (0.6-1.2) H 03/08/17 04:52 Est GFR ( Amer) 22.5 ml/min (>90) 03/08/17 04:52 Est GFR (Non-Af Amer) 18.6 ml/min 03/08/17 04:52 BUN/Creatinine Ratio 9.6 03/08/17 04:52 Glucose 139 mg/dL (70-105) H 03/08/17 04:52 POC Glucose 139 MG/DL (70-105) H 03/08/17 06:47 Hemoglobin A1c % 4.6 % (4.0-6.0) 02/27/17 19:30 Whole Bld Lactic Acid 3.33 mmol/L (0.60-1.99) H* 03/07/17 10:48 Calcium 8.1 mg/dL (8.6-10.3) L 03/08/17 04:52 Phosphorus 1.9 mg/dL (2.5-5.0) L 03/08/17 04:52 Magnesium 1.8 mg/dL (1.9-2.7) L 03/08/17 04:52 Total Bilirubin 5.9 mg/dL (0.3-1.0) H 03/08/17 04:52 Direct Bilirubin 3.68 mg/dL (0.0-0.2) H 03/07/17 08:20 AST 62 U/L (13-39) H 03/08/17 04:52 ALT 13 U/L (7-52) 03/08/17 04:52 Alkaline Phosphatase 194 U/L (34-104) H 03/08/17 04:52 Ammonia 186 umol/L (16-53) H 03/08/17 04:52 Troponin I 0.05 ng/mL (0.01-0.05) 03/07/17 08:20 Total Protein 5.0 gm/dL (6.0-8.3) L 03/08/17 04:52 Albumin 2.0 gm/dL (3.7-5.3) L 03/08/17 04:52 Globulin 3.0 gm/dL 03/08/17 04:52 Albumin/Globulin Ratio 0.7 (1.0-1.8) L 03/08/17 04:52 Prealbumin <3 mg/dL (10-36) L 03/05/17 07:45 Triglycerides 112 mg/dL (<150) 03/03/17 06:29 Cholesterol < 25 mg/dL (<200) 03/05/17 07:45 TSH 4.18 uIU/ml (0.34-5.60) 03/08/17 04:52 Gentamicin Peak 8.8 ug/ml (4.0-8.0) 03/01/17 10:00 Gentamicin Trough ug/ml (0.2-2.0) 03/01/17 08:30 Serum Ketones NEGATIVE (NEGATIVE) 02/27/17 19:30 Hepatitis A IgM Ab Negative (Negative) 03/02/17 05:36 Hep Bs Antigen Negative (Negative) 03/02/17 05:36 Hep B Core IgM Ab Negative (Negative) 03/02/17 05:36 Hepatitis C Antibody <0.1 s/co ratio (0.0-0.9) 03/02/17 05:36 Blood Type A POSITIVE 03/06/17 14:30 Antibody Screen NEGATIVE 03/06/17 14:30 Crossmatch See Detail 03/06/17 10:42 - Physical Exam Vitals and I&O: Vital Signs Temp 98.1 F 03/08/17 04:00 Pulse 114 03/08/17 11:13 Resp 18 03/08/17 10:21 BP 111/52 03/08/17 10:30 Pulse Ox 97 03/08/17 11:13 Intake & Output 03/07/17 03/08/17 03/08/17 18:59 06:59 18:59 Intake Total 4348.532 324.172 77.597 Output Total 1600 Balance 2748.532 324.172 77.597 Weight (lbs) 134.263 kg Intake: Intake, IV Amount 2138.532 324.172 77.597 Diltiazem 125 mg In 46.250 104.208 Dextrose 5% 100 ml @ 10 MG/HR 10 mls/hr IV TITR [facility] Rx#:[id number] Meropenem 500 mg In 100 Sodium Chloride 0.9% 100 ml @ 100 mls/hr IV Q24H [facility] Rx#:[id number] Multivitamin Inj 10 ml In 1414 Amino Acids 3% / Electrolytes 700 ml In Intralipids 20% 50 ml In Dextrose 10% 680 ml @ 60 mls/hr IV .Q24H [facility] Rx#: [id number] Norepinephrine 4 mg In 478.282 219.964 77.597 Dextrose 5% 250 ml @ 37.5 MCG/MIN 142.87 mls/hr IV TITR PRN Rx#:[id number] Tigecycline 50 mg In 100 Sodium Chloride 0.9% 100 ml @ 100 mls/hr IV Q12H [facility] Rx#:[id number] Oral 0 Tube Feeding 0 TPN/PPN 1260 Blood Product 950 Lipid 0 Albumin 0 Other 0 Output: Gastric Drainage 0 Urine 0 Stool 0 Urine/Stool Mix 0 Emesis 0 Hemodialysis 1300 Other 300 Other: # Voids 0 # Bowel Movements 0 Active Medications: Current Medications Acetaminophen/Hydrocodone Bitart ([place] 10 Mg/325 Mg) 1 tab PO Q6H PRN PRN Reason: Pain (Moderate) Stop: 05/04/17 09:27 Albuterol Sulfate (Albuterol 2.5mg/3ml Neb Ud) 2.5 mg HHN Q2H PRN PRN Reason: Shortness of Breath Stop: 04/29/17 03:59 Last Admin: 03/07/17 15:26 Dose: 2.5 mg Albuterol/Ipratropium (Duoneb Neb) 3 ml HHN Q4HRT [facility] Stop: 05/04/17 22:59 Last Admin: 03/08/17 11:13 Dose: 3 ml Ascorbic Acid (Vitamin C) 500 mg PO DAILY [facility] Stop: 04/29/17 08:59 Last Admin: 03/08/17 08:18 Dose: Not Given Budesonide (Pulmicort) 0.25 mg HHN BIDRT [facility] Stop: 05/05/17 06:59 Last Admin: 03/08/17 06:51 Dose: 0.25 mg Chlorhexidine Gluconate (Peridex) 15 ml MM 0800,2000 [facility] Stop: 05/05/17 19:59 Last Admin: 03/08/17 08:45 Dose: 15 ml Cholecalciferol (Vitamin D3) 2,000 iu PO DAILY [facility] Stop: 04/29/17 08:59 Last Admin: 03/08/17 08:18 Dose: Not Given Diphenhydramine HCl (Benadryl) 25 mg PO Q6H PRN PRN Reason: Itching Stop: 04/29/17 03:39 Escitalopram Oxalate (Lexapro) 10 mg PO DAILY [facility] PRN Reason: Protocol Stop: 04/29/17 08:59 Last Admin: 03/08/17 08:18 Dose: Not Given Famotidine (Pepcid) 20 mg IVP DAILY [facility] Stop: 05/01/17 08:59 Last Admin: 03/08/17 08:45 Dose: 20 mg Fludrocortisone Acetate (Florinef) 0.1 mg PO BID [facility] Stop: 04/29/17 08:59 Last Admin: 03/08/17 08:12 Dose: Not Given Diltiazem HCl 125 mg/ Dextrose 125 mls @ 10 mls/hr IV TITR [facility]; 10 MG/HR PRN Reason: Protocol Stop: 04/29/17 04:14 Last Admin: 03/08/17 04:59 Dose: 5 mg/hr, 5 mls/hr Tigecycline 50 mg/ Sodium (Chloride) 100 mls @ 100 mls/hr IV Q12H [facility] Stop: 04/30/17 11:29 Last Admin: 03/07/17 23:47 Dose: 100 mls/hr Multivitamins/Minerals 10 ml/Amino Acids/Electrolytes/ Fat Emulsion Intravenous / Dextrose 1,440 mls @ 60 mls/hr IV .Q24H [facility] Stop: 05/02/17 15:59 Last Admin: 03/07/17 16:48 Dose: 60 mls/hr Amikacin Sulfate 300 mg/ (Dextrose) 101.2 mls @ 100 mls/hr IV PRN PRN PRN Reason: After ea. HD on MWF Stop: 05/05/17 14:59 Meropenem 500 mg/ Sodium (Chloride) 100 mls @ 100 mls/hr IV Q24H [facility] Stop: 05/05/17 08:59 Last Admin: 03/08/17 08:47 Dose: 100 mls/hr Norepinephrine Bitartrate 4 mg (/ Dextrose) 254 mls @ 142.87 mls/hr IV TITR PRN ; Protocol; 37.5 MCG/MIN PRN Reason: BP MAINTENANCE (PER PROTOCOL) Stop: 05/04/17 22:40 Last Titration: 03/08/17 09:40 Dose: 10 mcg/min, 38.1 mls/hr Amikacin Sulfate 300 mg/ (Dextrose) 101.2 mls @ 100 mls/hr IV TuThSa [facility] Stop: 05/07/17 15:49 Desmopressin Acetate 30 mcg/ (Sodium Chloride) 57.5 mls @ 100 mls/hr IV DAILY [facility] Stop: 03/08/17 12:34 Insulin Aspart (Novolog Insulin Sliding Scale) 0 units SUBQ Q6HR [facility] PRN Reason: Protocol Stop: 05/03/17 00:00 Last Admin: 03/08/17 06:55 Dose: Not Given Lactobacillus Rhamnosus (Culturelle) 1 each PO DAILY [facility] Stop: 05/01/17 08:59 Last Admin: 03/08/17 08:18 Dose: Not Given Lorazepam (Ativan) 2 mg IVP Q4HR PRN; Protocol PRN Reason: Anxiety Stop: 05/04/17 20:17 Last Admin: 03/06/17 20:28 Dose: 2 mg Metoprolol Tartrate (Lopressor) 50 mg PO Q12HR [facility] Stop: 04/29/17 08:59 Last Admin: 03/08/17 08:19 Dose: Not Given Miscellaneous (Clinical Monitoring) 1 ea [facility] DAILY PRN PRN Reason: RENAL Stop: 04/29/17 10:50 Miscellaneous (Vte Chemical Prophylaxis Screen/ Admission) 1 ea [facility] PRN PRN PRN Reason: PROTOCOL Stop: 04/29/17 15:40 Miscellaneous (Probiotic Screen) 1 ea [facility] PRN PRN PRN Reason: PROTOCOL Stop: 04/30/17 10:56 Miscellaneous (Tpn Per Pharmacy) 1 ea PRN PRN PRN Reason: PROTOCOL Stop: 04/30/17 18:13 Zinc Sulfate (Zinc Sulfate) 220 mg PO DAILY [facility] Stop: 04/29/17 08:59 Last Admin: 03/08/17 08:19 Dose: Not Given General: no acute distress, other (obese.) HEENT: atraumatic, normocephalic, PERRLA, EOMI Neck: supple, no thyromegaly Cardiovascular: S1S2, regular Lungs: clear to auscultation bilaterally, clear to percussion Abdomen: soft, no tender, no distended Extremities: no cyanosis, no clubbing, no edema Neurological: other (Unresponsive. ) Skin: other (deep ulcer of abdomen, right leg and andkle. ther are multiple dark black lesions in left leg without formation of any any wound.) - Procedures Procedures: Procedures Procedure Code Date EXCISION OF ABD SUBCU/FASCIA, OPEN APPROACH 4KY75KB 02/27/17 EXCISION OF R LOW LEG SUBCU/FASCIA, OPEN APPROACH [id number] 02/27/17 INSERT EMERGENCY AIRWAY [id number] 02/27/17 INSERTION OF ENDOTRACHEAL AIRWAY INTO TRACHEA, VIA OPENING [id number] 02/27/17 REMOVAL OF PRESSURE SORE [id number] 02/27/17 RESPIRATORY VENTILATION, 24-96 CONSECUTIVE HOURS [id number] 02/27/17 VENT MGMT INPAT INIT DAY 85225 02/27/17 Infectious Disease Assmt/Plan - Assessment Assessment: 1. Leukocytosis , septic shock. 2. Infected lower abdominal wounds, worse on the left. Growing CRE. 3. Calciphylaxis of lower abdomen, legs. 4. Obesity. 5. Dm2 6. CKD 5 on HD. 7. HTN. 8. Anemia of CD. 9. s/p debridement. - Plan Plan: Will Continue tygacil, Amikacin and meropenem IV. wound care. Check VQ scan. severe calciphylaxis. wound care. poor prognosis. patient carries very high morality and morbidity risks. Nutritional Asmnt/Malnutr-PDOC - Dietary Evaluation Malnutrition Findings (Please click <Entered> for more info): Nutritional Asmnt/Malnutrition Start: 02/28/17 14: 25 Text: Status: Complete Freq: Document 02/28/17 14:32 GSUN (Rec: 02/28/17 14:52 [email or web address] [email or web address]) Nutritional Asmnt/Malnutrition Patient General Information Nutritional Screening High Risk Screening Diagnosis Infectured multiple abdominal wound, sepsis, hypotension Pertinent Medical Hx/Surgical Hx DM, end stage renal failure, obesity, multiple abdominal wound, anemia Subjective Information 71 [address] consult for wounds/calciphylaxis. Pt was lethargic during visit, spoke to at bedside. Briefly explained renal diet, agreeable to plan, not suitble for extensive edu at this time. Pt appeared obese. Pt reported UBW 250lb measured 1 month ago, pt is unsure of dry weight at dialysis center. Pt reported has gradually lost weight 80lb over the past year due to poor appetite and hospitalizations. RD recommended oral supplements, pt denied, stating she has tried and threw up. Current Diet Order/ Nutrition Support Renal, 1800kcal Pertinent Medications Vitamin C, Vitamin D3, D5-0. 45ns, Pepcid, Novolog, Culturelle, Morphine, Zinc Sulfate Pertinent Labs 02/28: BUN 38H, creatinine 5H, phosphorus 5.4H Nutritional Hx/Data Height 1.63 m Height (Calculated Centimeters) 162.6 Current Weight (lbs) 113.398 kg Weight (Calculated Kilograms) 113.4 Weight (Calculated Grams) 063280.1 [place] Body Weight 120 Recent Weight Change Yes Weight Status Morbidly Obese GI Symptoms Skin Integrity/Comment: Bilateral lower extremities pitting 3+. Abdominal wounds/ calciphylaxis Estimated Nutritional Goals BEE in Kcals: Adj wt of IBW Calories/Kcals/Kg AdjBW 152.5lb/69.3kg (adjsuted to UBW) Kcals Calculated 2079-2426kcal (30-35kcal/kg) Protein: Adj wt of IBW Protein Calculated 90-104g (1.2-1.5/gkg) Fluid: ml 2079-2426ml (1ml/kcal) Nutritional Problem 3. Problem Problem Malnutrition related to Etiology unknown etiology, energy imbalance aeb Signs/Symptoms: BMI >40 2. Problem Problem Increased kcal and prot needs related to Etiology hypermetabolic state aeb Signs/Symptoms: on HD, sepsis 1. Problem Problem Impaired nutrient utilization related to Etiology end stage renal failure aeb Signs/Symptoms: on HD, BUN 38H, creatinine 5H, phosphorus 5.4H Malnutrition Related to Morbid Obesity Malnutrition related to morbid obesity BMI> or equal to 40 Query Text:(Any 1 Criteria met) Malnutrition related to morbid obesity Yes Intervention/Recommendation Comments 1. Recommend renal diet. Briefly explained renal diet, pt is agreeable to plan. Encourage PO intake. 2. Recommend removing " 1800kcal" restriction as pt is in hypermetabolic state ( sepsis, HD) and obese, requiring more than 1800kcal, weight loss not favorable at this time. 3. Pt reported poor appetite many months, RD recommend oral supplements, pt declined. Expected Outcomes/Goals Expected Outcomes/Goals 1. PO intake to meet at least 75% of estimated nutritional needs.
[2017-03-08] MEDS ORDERED: Amikacin 250 mg in D5W 100mL IV SCH (15:50)
[2017-03-08] MEDS: MULTIVITAMIN IV SCH (16:29)
[2017-03-08] MEDS: INTRALIPIDS IV SCH (16:29)
[2017-03-08] MEDS: ELECTROLYTES IV SCH (16:29)
[2017-03-08] MEDS: [UNRECOGNIZED DRUG - OTHER] IV SCH (16:29)
[2017-03-08] MEDS: AMINO ACIDS IV SCH (16:29)
--- NOTE | 2017-03-08 20:29 | General Progress Note ---
Subjective - Review of Systems Subjective: Patient is seen and examined. Patient is sedated and intubated. The patient is currently on IV cardizem drip and levophed drip.. Objective - Results Result Diagrams: 03/08/17 04:52 03/08/17 04:52 Recent Labs: Laboratory Last Values WBC 19.4 Th/cmm (4.8-10.8) H D 03/08/17 04:52 RBC 2.72 Mil/cmm (3.80-5.20) L 03/08/17 04:52 Hgb 8.6 gm/dL (11.7-16.1) L D 03/08/17 04:52 Hct 25.1 % (35.0-45.0) L D 03/08/17 04:52 MCV 92.6 fl (81-100) 03/08/17 04:52 MCH 31.7 pg (27.0-31.0) H 03/08/17 04:52 MCHC Differential 34.2 pg (28.0-36.0) 03/08/17 04:52 RDW 15.6 % (11.5-20.0) 03/08/17 04:52 Plt Count 37 Th/cmm (150-400) L D 03/08/17 04:52 MPV 9.5 fl 03/08/17 04:52 Neutrophils % 82.3 % (40.0-80.0) H 03/04/17 05:20 Band Neutrophils % 8 % (0-10) 03/08/17 04:52 Lymphocytes % 11.2 % (20.0-50.0) L 03/04/17 05:20 Monocytes % 5.3 % (2.0-10.0) 03/04/17 05:20 Eosinophils % 1.1 % (0.0-5.0) 03/04/17 05:20 Basophils % 0.1 % (0.0-2.0) 03/04/17 05:20 Neutrophils (Manual) 67 % (40-80) 03/08/17 04:52 Lymphocytes 16 % (20-50) L 03/08/17 04:52 Monocytes 9 % (2-10) 03/08/17 04:52 Eosinophils 1 % (0-5) 03/07/17 08:20 Basophils 1 % (0-3) 03/01/17 12:26 Metamyelocytes 1 % (0-0) H 03/07/17 08:20 Myelocytes 1 % 03/07/17 08:20 Atypical Lymphocytes 1 % 03/07/17 08:20 Hypochromia 1+ 03/03/17 06:29 Platelet Estimate DECREASED PLATELETS (NORMAL) 03/08/17 04:52 Platelet Morphology NORMAL (NORMAL) 03/08/17 04:52 Polychromasia 1+ 03/03/17 06:29 Poikilocytosis 1+ 03/07/17 08:20 Anisocytosis 1+ 03/08/17 04:52 RBC Morph Micro Appear ABNORMAL (NORMAL) 03/08/17 04:52 Plt Count 37 Th/cmm (150-750) L D 03/08/17 04:52 PT 18.0 SECONDS (9.5-11.5) H 03/08/17 04:52 INR 1.68 (0.5-1.4) H 03/08/17 04:52 PTT (Actin FS) 51.7 SECONDS (26.0-38.0) H 03/08/17 04:52 Fibrinogen 216.0 mg/dL (200.0-400.0) 03/08/17 04:52 D-Dimer 3510 ng/mL (100-400) H 03/08/17 04:52 Specimen Source Arterial 03/08/17 09:30 Sample Site Left Radial 03/08/17 09:30 pH 7.31 (7.35-7.45) L 03/08/17 09:30 pCO2 61.0 mmHg (35.0-45.0) H* 03/08/17 09:30 pO2 136.0 mmHg (80.0-100.0) H 03/08/17 09:30 HCO3 27.3 mEq/L (20.0-26.0) H 03/08/17 09:30 Base Excess 3.0 mEq/L (-3.0-3.0) 03/08/17 09:30 O2 Saturation 99.0 % (92.0-100.0) 03/08/17 09:30 Chaz Test Positive 03/08/17 09:30 Vent Rate 12 03/08/17 09:30 Inspired O2 70 03/08/17 09:30 Tidal Volume 500 03/08/17 09:30 PEEP 0 03/08/17 09:30 Pressure (ins/psv/peep) NA 03/08/17 09:30 Critical Value ACELIS 03/08/17 09:30 Sodium 134 mEq/L (136-145) L 03/08/17 04:52 Potassium 3.3 mEq/L (3.5-5.1) L 03/08/17 04:52 Chloride 102 mEq/L (98-107) 03/08/17 04:52 Carbon Dioxide 26.9 mEq/L (21.0-31.0) 03/08/17 04:52 Anion Gap 8.4 (7.0-16.0) 03/08/17 04:52 BUN 26 mg/dL (7-25) H 03/08/17 04:52 Creatinine 2.7 mg/dL (0.6-1.2) H 03/08/17 04:52 Est GFR ( Amer) 22.5 ml/min (>90) 03/08/17 04:52 Est GFR (Non-Af Amer) 18.6 ml/min 03/08/17 04:52 BUN/Creatinine Ratio 9.6 03/08/17 04:52 Glucose 139 mg/dL (70-105) H 03/08/17 04:52 POC Glucose 164 MG/DL (70 - 105) H 03/08/17 17:59 Hemoglobin A1c % 4.6 % (4.0-6.0) 02/27/17 19:30 Whole Bld Lactic Acid 3.33 mmol/L (0.60-1.99) H* 03/07/17 10:48 Calcium 8.1 mg/dL (8.6-10.3) L 03/08/17 04:52 Phosphorus 1.9 mg/dL (2.5-5.0) L 03/08/17 04:52 Magnesium 1.8 mg/dL (1.9-2.7) L 03/08/17 04:52 Total Bilirubin 5.9 mg/dL (0.3-1.0) H 03/08/17 04:52 Direct Bilirubin 3.68 mg/dL (0.0-0.2) H 03/07/17 08:20 AST 62 U/L (13-39) H 03/08/17 04:52 ALT 13 U/L (7-52) 03/08/17 04:52 Alkaline Phosphatase 194 U/L (34-104) H 03/08/17 04:52 Ammonia 186 umol/L (16-53) H 03/08/17 04:52 Troponin I 0.05 ng/mL (0.01-0.05) 03/07/17 08:20 Total Protein 5.0 gm/dL (6.0-8.3) L 03/08/17 04:52 Albumin 2.0 gm/dL (3.7-5.3) L 03/08/17 04:52 Globulin 3.0 gm/dL 03/08/17 04:52 Albumin/Globulin Ratio 0.7 (1.0-1.8) L 03/08/17 04:52 Prealbumin <3 mg/dL (10-36) L 03/05/17 07:45 Triglycerides 112 mg/dL (<150) 03/03/17 06:29 Cholesterol < 25 mg/dL (<200) 03/05/17 07:45 TSH 4.18 uIU/ml (0.34-5.60) 03/08/17 04:52 Gentamicin Peak 8.8 ug/ml (4.0-8.0) 03/01/17 10:00 Gentamicin Trough ug/ml (0.2-2.0) 03/01/17 08:30 Serum Ketones NEGATIVE (NEGATIVE) 02/27/17 19:30 Hepatitis A IgM Ab Negative (Negative) 03/02/17 05:36 Hep Bs Antigen Negative (Negative) 03/02/17 05:36 Hep B Core IgM Ab Negative (Negative) 03/02/17 05:36 Hepatitis C Antibody <0.1 s/co ratio (0.0-0.9) 03/02/17 05:36 Blood Type A POSITIVE 03/06/17 14:30 Antibody Screen NEGATIVE 03/06/17 14:30 Crossmatch See Detail 03/06/17 10:42 - Physical Exam Vitals and I&O: Vital Signs Temp 98.6 F 03/08/17 19:00 Pulse 113 03/08/17 19:30 Resp 20 03/08/17 19:00 BP 124/47 03/08/17 19:30 Pulse Ox 99 03/08/17 19:00 Intake & Output 03/08/17 03/08/17 03/09/17 06:59 18:59 06:59 Intake Total 407.716 3907.239 Output Total 700 Balance 646.852 0190.239 Weight (lbs) 134.263 kg Intake: Intake, IV Amount 734.492 3101.239 Amikacin 300 mg In 101.2 Dextrose 5% 100 ml @ 100 mls/hr IV TuThSa [facility] Rx#: [id number] Diltiazem 125 mg In 104.208 82.066 Dextrose 5% 100 ml @ 10 MG/HR 10 mls/hr IV TITR [facility] Rx#:[id number] Meropenem 500 mg In 100 Sodium Chloride 0.9% 100 ml @ 100 mls/hr IV Q24H [facility] Rx#:[id number] Multivitamin Inj 10 ml In 1421 Amino Acids 3% / Electrolytes 700 ml In Intralipids 20% 50 ml In Dextrose 10% 680 ml @ 60 mls/hr IV .Q24H [facility] Rx#: [id number] Norepinephrine 4 mg In 219.964 485.140 Dextrose 5% 250 ml @ 37.5 MCG/MIN 142.87 mls/hr IV TITR PRN Rx#:[id number] Tigecycline 50 mg In 100 100.000 Sodium Chloride 0.9% 100 ml @ 100 mls/hr IV Q12H [facility] Rx#:[id number] Oral 0 Tube Feeding 0 TPN/PPN 720 Blood Product 600 Lipid 0 Albumin 0 Other 0 Output: Gastric Drainage 0 Drainage 350 Left Lower Abdomen 250 Right Lower Abdomen 100 Urine 0 Stool 0 Urine/Stool Mix 0 Emesis 0 Hemodialysis 0 Other 350 Other: # Voids 0 # Bowel Movements 0 Active Medications: Current Medications Acetaminophen/Hydrocodone Bitart ([place] 10 Mg/325 Mg) 1 tab PO Q6H PRN PRN Reason: Pain (Moderate) Stop: 05/04/17 09:27 Albuterol Sulfate (Albuterol 2.5mg/3ml Neb Ud) 2.5 mg HHN Q2H PRN PRN Reason: Shortness of Breath Stop: 04/29/17 03:59 Last Admin: 03/07/17 15:26 Dose: 2.5 mg Albuterol/Ipratropium (Duoneb Neb) 3 ml HHN Q4HRT [facility] Stop: 05/04/17 22:59 Last Admin: 03/08/17 19:02 Dose: 3 ml Ascorbic Acid (Vitamin C) 500 mg PO DAILY [facility] Stop: 04/29/17 08:59 Last Admin: 03/08/17 08:18 Dose: Not Given Budesonide (Pulmicort) 0.25 mg HHN BIDRT [facility] Stop: 05/05/17 06:59 Last Admin: 03/08/17 19:02 Dose: 0.25 mg Chlorhexidine Gluconate (Peridex) 15 ml MM 08,1999 [facility] Stop: 05/05/17 19:59 Last Admin: 03/08/17 08:45 Dose: 15 ml Cholecalciferol (Vitamin D3) 2,000 iu PO DAILY [facility] Stop: 04/29/17 08:59 Last Admin: 03/08/17 08:18 Dose: Not Given Diphenhydramine HCl (Benadryl) 25 mg PO Q6H PRN PRN Reason: Itching Stop: 04/29/17 03:39 Escitalopram Oxalate (Lexapro) 10 mg PO DAILY [facility] PRN Reason: Protocol Stop: 04/29/17 08:59 Last Admin: 03/08/17 08:18 Dose: Not Given Famotidine (Pepcid) 20 mg IVP DAILY [facility] Stop: 05/01/17 08:59 Last Admin: 03/08/17 08:45 Dose: 20 mg Fludrocortisone Acetate (Florinef) 0.1 mg PO BID [facility] Stop: 04/29/17 08:59 Last Admin: 03/08/17 16:43 Dose: Not Given Diltiazem HCl 125 mg/ Dextrose 125 mls @ 10 mls/hr IV TITR [facility]; 10 MG/HR PRN Reason: Protocol Stop: 04/29/17 04:14 Last Titration: 03/08/17 18:45 Dose: 11 mg/hr, 11 mls/hr Tigecycline 50 mg/ Sodium (Chloride) 100 mls @ 100 mls/hr IV Q12H [facility] Stop: 04/30/17 11:29 Last Infusion: 03/08/17 13:34 Dose: Infused Multivitamins/Minerals 10 ml/Amino Acids/Electrolytes/ Fat Emulsion Intravenous / Dextrose 1,440 mls @ 60 mls/hr IV .Q24H [facility] Stop: 05/02/17 15:59 Last Admin: 03/08/17 16:29 Dose: 60 mls/hr Amikacin Sulfate 300 mg/ (Dextrose) 101.2 mls @ 100 mls/hr IV PRN PRN PRN Reason: After ea. HD on MWF Stop: 05/05/17 14:59 Meropenem 500 mg/ Sodium (Chloride) 100 mls @ 100 mls/hr IV Q24H [facility] Stop: 05/05/17 08:59 Last Infusion: 03/08/17 09:47 Dose: Infused Norepinephrine Bitartrate 4 mg (/ Dextrose) 254 mls @ 142.87 mls/hr IV TITR PRN ; Protocol; 37.5 MCG/MIN PRN Reason: BP MAINTENANCE (PER PROTOCOL) Stop: 05/04/17 22:40 Last Admin: 03/08/17 18:48 Dose: 20 mcg/min, 76.2 mls/hr Amikacin Sulfate 300 mg/ (Dextrose) 101.2 mls @ 100 mls/hr IV TuThSa [facility] Stop: 05/07/17 15:49 Last Infusion: 03/08/17 18:43 Dose: Infused Insulin Aspart (Novolog Insulin Sliding Scale) 0 units SUBQ Q6HR [facility] PRN Reason: Protocol Stop: 05/03/17 00:00 Last Admin: 03/08/17 18:42 Dose: Not Given Lactobacillus Rhamnosus (Culturelle) 1 each PO DAILY [facility] Stop: 05/01/17 08:59 Last Admin: 03/08/17 08:18 Dose: Not Given Lorazepam (Ativan) 2 mg IVP Q4HR PRN; Protocol PRN Reason: Anxiety Stop: 05/04/17 20:17 Last Admin: 03/06/17 20:28 Dose: 2 mg Metoprolol Tartrate (Lopressor) 50 mg PO Q12HR [facility] Stop: 04/29/17 08:59 Last Admin: 03/08/17 08:19 Dose: Not Given Miscellaneous (Clinical Monitoring) 1 ea [facility] DAILY PRN PRN Reason: RENAL Stop: 04/29/17 10:50 Miscellaneous (Vte Chemical Prophylaxis Screen/ Admission) 1 ea [facility] PRN PRN PRN Reason: PROTOCOL Stop: 04/29/17 15:40 Miscellaneous (Probiotic Screen) 1 ea [facility] PRN PRN PRN Reason: PROTOCOL Stop: 04/30/17 10:56 Miscellaneous (Tpn Per Pharmacy) 1 [facility] PRN PRN PRN Reason: PROTOCOL Stop: 04/30/17 18:13 Zinc Sulfate (Zinc Sulfate) 220 mg PO DAILY [facility] Stop: 04/29/17 08:59 Last Admin: 03/08/17 08:19 Dose: Not Given General: Other (intubated and sedated), no Alert HEENT: Atraumatic, PERRLA, Other (endotracheal tube noted .) Neck: Supple, +2 carotid pulse wo bruit Cardiovascular: Systolic murmurs, Other (irregularly irregular.) Lungs: Other (diffuse rhonchi throughout.) Abdomen: Bowel sounds, Soft, Obese, Other (multiple abd wounds, w/ wound vac.) Extremities: Other (ecchymosis, hematomas, petecchiae,debrided wound.), no Edema Neurological: Sensation intact, Other (stuporous) Skin: Rash, Breakdown (multiple blisters), Significant lesion (multiple bruises and ecchymosis, ischemic wounds.) Psych/Mental Status: Other (intubated and sedated) - Procedures Procedures: Procedures Procedure Code Date EXCISION OF ABD SUBCU/FASCIA, OPEN APPROACH [id number] 02/27/17 EXCISION OF R LOW LEG SUBCU/FASCIA, OPEN APPROACH [id number] 02/27/17 INSERT EMERGENCY AIRWAY [id number] 02/27/17 INSERTION OF ENDOTRACHEAL AIRWAY INTO TRACHEA, VIA OPENING [id number] 02/27/17 REMOVAL OF PRESSURE SORE [id number] 02/27/17 RESPIRATORY VENTILATION, 24-96 CONSECUTIVE HOURS [id number] 02/27/17 VENT MGMT INPAT INIT DAY [id number] 02/27/17 Assessment/Plan - Assessment Assessment: Septic shock. Multiple infected wounds on abdomen and extremities status post debridement with wound VAC. End-stage renal disease on hemodialysis. Hypertension. Acute respiratory failure requiring endotracheal intubation and mechanical ventilation. Coronary artery disease. Possible ARDS. Severe thrombocytopenia secondary to DIC and possible medication related. Anemia of chronic kidney disease and anemia of inflammation. Chronic atrial fibrillation. DIC positive. History of DVT and jugular venous thrombosis. Heparin induced thrombocytopenia history. Diffuse DJD. Bed confined. Guarded prognosis. - Plan Plan: ICU status. Vent support. HHN. Guarded prognosis. Pulmo consult and follow up. IV antibiotics as per ID. Hemodialysis as schedule. Wound care as per surgery. Cardiac monitoring. Hematology consultation and follow up. Cardiology consultation and follow-up General nursing care ID follow-up and follow the recommendations Follow labs. Follow-up consultants recommendations. Prognosis guarded. ICU care. Anticoagulation therapy. Chronic management of her chronic illnesses. Care plan reviewed and discussed with RN. Nutritional Asmnt/Malnutr-PDOC - Dietary Evaluation Malnutrition Findings (Please click <Entered> for more info): Nutritional Asmnt/Malnutrition Start: 02/28/17 14: 25 Text: Status: Complete Freq: Document 02/28/17 14:32 GSUN (Rec: 02/28/17 14:52 [email or web address] [email or web address]) Nutritional Asmnt/Malnutrition Patient General Information Nutritional Screening High Risk Screening Diagnosis Infectured multiple abdominal wound, sepsis, hypotension Pertinent Medical Hx/Surgical Hx DM, end stage renal failure, obesity, multiple abdominal wound, anemia Subjective Information 71 [address] consult for wounds/calciphylaxis. Pt was lethargic during visit, spoke to at bedside. Briefly explained renal diet, agreeable to plan, not suitble for extensive edu at this time. Pt appeared obese. Pt reported UBW 250lb measured 1 month ago, pt is unsure of dry weight at dialysis center. Pt reported has gradually lost weight 80lb over the past year due to poor appetite and hospitalizations. RD recommended oral supplements, pt denied, stating she has tried and threw up. Current Diet Order/ Nutrition Support Renal, 1800kcal Pertinent Medications Vitamin C, Vitamin D3, D5-0. 45ns, Pepcid, Novolog, Culturelle, Morphine, Zinc Sulfate Pertinent Labs /: BUN 38H, creatinine 5H, phosphorus 5.4H Nutritional Hx/Data Height 1.63 m Height (Calculated Centimeters) 162.6 Current Weight (lbs) 113.398 kg Weight (Calculated Kilograms) 113.4 Weight (Calculated Grams) 109771.1 [place] Body Weight 120 Recent Weight Change Yes Weight Status Morbidly Obese GI Symptoms Skin Integrity/Comment: Bilateral lower extremities pitting 3+. Abdominal wounds/ calciphylaxis Estimated Nutritional Goals BEE in Kcals: Adj wt of IBW Calories/Kcals/Kg AdjBW 152.5lb/69.3kg (adjsuted to UBW) Kcals Calculated 2079-2426kcal (30-35kcal/kg) Protein: Adj wt of IBW Protein Calculated 90-104g (1.2-1.5/gkg) Fluid: ml 2079-2426ml (1ml/kcal) Nutritional Problem 3. Problem Problem Malnutrition related to Etiology unknown etiology, energy imbalance aeb Signs/Symptoms: BMI >40 2. Problem Problem Increased kcal and prot needs related to Etiology hypermetabolic state aeb Signs/Symptoms: on HD, sepsis 1. Problem Problem Impaired nutrient utilization related to Etiology end stage renal failure aeb Signs/Symptoms: on HD, BUN 38H, creatinine 5H, phosphorus 5.4H Malnutrition Related to Morbid Obesity Malnutrition related to morbid obesity BMI> or equal to 40 Query Text:(Any 1 Criteria met) Malnutrition related to morbid obesity Yes Intervention/Recommendation Comments 1. Recommend renal diet. Briefly explained renal diet, pt is agreeable to plan. Encourage PO intake. 2. Recommend removing " 1800kcal" restriction as pt is in hypermetabolic state ( sepsis, HD) and obese, requiring more than 1800kcal, weight loss not favorable at this time. 3. Pt reported poor appetite many months, RD recommend oral supplements, pt declined. Expected Outcomes/Goals Expected Outcomes/Goals 1. PO intake to meet at least 75% of estimated nutritional needs.
[2017-03-09] MEDS: Albuterol/Ipratropium Neb 3 ML AERS HHN SCH ×5 (02:29→22:37)
[2017-03-09] MEDS ORDERED: Norepinephrine 4 mg/4mL Vial IV ONE (02:56)
--- NOTE | 2017-03-09 03:39 | Progress Notes ---
DATE: 03/08/2017 PROBLEM LIST: 1. Acute respiratory failure. 2. Abdominal sepsis. 3. Underlying chronic renal failure on hemodialysis. 4. Recurrent fluid overload. PHYSICAL EXAMINATION: GENERAL: The patient is obtunded, no respiratory distress. VITAL SIGNS: Recorded vitals; pulse is 110-113, BP is okay, saturation 98% on 50%. NECK: Veins could not be visualized. CHEST: Shows scattered rhonchi with generalized diminished air entry. HEART: Regular. ABDOMEN: Dressing, otherwise unremarkable. LABORATORY DATA: White count is 19.4, hemoglobin 8.6. The patient's ABG shows compensated respiratory acidemia on SIMV with assist control 12, with pO2 of 136, with pCO2 of 61. Electrolytes are okay with creatinine 2.7, potassium 3.3. ASSESSMENT: The patient is quite sick with septicemia with sepsis with associated recurrent congestive heart failure and fluid overload with underlying sleep apnea syndrome with metabolic disorder. PLANS AND SUGGESTIONS: We will go ahead and decrease FIO2. We will decrease backup rate, etc. We will follow up with another chest x-ray, etc. tomorrow and go from there. JOB# [id number]
[2017-03-09 06:32] LABS: MEAN CELL VOLUME 92.8 fl (81-100); MEAN CORPUSCULAR HEMOGLOBIN 31.9 pg (27.0-31.0); MEAN CORPUSCULAR HGB CONC 34.3 pg (28.0-36.0); MEAN PLATELET VOLUME 8.6 fl; RED BLOOD COUNT 2.36 Mil/cmm (3.80-5.20); RED CELL DISTRIBUTION WIDTH 15.2 % (11.5-20.0)
[2017-03-09] MEDS: INSULIN ASPART SLIDING SCALE 100 UNITS/ML UNIT SUBQ SCH ×3 (06:53→23:26)
[2017-03-09 06:54] LABS: INR 1.46 (0.5-1.4); PROTHROMBIN TIME (TEST) 15.5 SECONDS (9.5-11.5)
[2017-03-09 07:02] LABS: ALB/GLOB RATIO 0.7 (1.0-1.8); ANION GAP 11.2 (7.0-16.0); BILIRUBIN,DIRECT 3.53 mg/dL (0.0-0.2); BILIRUBIN,TOTAL 5.5 mg/dL (0.3-1.0); BUN/CREATININE RATIO 11.9; CALCIUM SERUM 8.5 mg/dL (8.6-10.3); CARBON DIOXIDE 27.8 mEq/L (21.0-31.0); CREATININE - SERUM 3.1 mg/dL (0.6-1.2); MAGNESIUM 1.9 mg/dL (1.9-2.7); PHOSPHOROUS 1.4 mg/dL (2.5-5.0)
[2017-03-09] MEDS: Budesonide 0.5 Mg/2 mL Ud HHN SCH ×2 (07:09→19:03)
[2017-03-09 07:47] LABS: WHITE BLOOD COUNT 17.3 Th/cmm (4.8-10.8)
[2017-03-09 07:48] LABS: HEMATOCRIT 21.9 % (35.0-45.0); HEMOGLOBIN 7.5 gm/dL (11.7-16.1); PLATELET COUNT 66 Th/cmm (150-400)
--- NOTE | 2017-03-09 08:28 | Diagnostic Imaging Report ---
CHEST X-RAY: AP view INDICATION: Pulmonary edema COMPARISON: Chest x-ray 03/08/2017 FINDINGS: ET tube is seen with tip 4.1 cm above the Dory. Remaining support devices are stable. Findings of CHF are seen with bilateral infiltrates and bilateral effusions left greater than right. Cardiomegaly is noted. IMPRESSION: CHF with bilateral infiltrates and effusions, left greater than right. Cardiomegaly. ET tube with tip 4.1 cm above the Dory.
[2017-03-09] MEDS ORDERED: Levetiracetam 500mg/100mL 500 MG/100 ML BAG IV SCH (09:00)
--- NOTE | 2017-03-09 09:01 | General Progress Note ---
Subjective - Review of Systems Subjective: Patient is seen and examined. Patient is sedated and intubated. The patient is currently on IV cardizem drip and levophed drip. Patient is having involuntary movements on face and LUE. Objective - Results Result Diagrams: 03/09/17 05:30 03/09/17 05:30 Recent Labs: Laboratory Last Values WBC 17.3 Th/cmm (4.8-10.8) H 03/09/17 05:30 RBC 2.36 Mil/cmm (3.80-5.20) L 03/09/17 05:30 Hgb 7.5 gm/dL (11.7-16.1) L* D 03/09/17 05:30 Hct 21.9 % (35.0-45.0) L* D 03/09/17 05:30 MCV 92.8 fl (81-100) 03/09/17 05:30 MCH 31.9 pg (27.0-31.0) H 03/09/17 05:30 MCHC Differential 34.3 pg (28.0-36.0) 03/09/17 05:30 RDW 15.2 % (11.5-20.0) 03/09/17 05:30 Plt Count 66 Th/cmm (150-400) L D 03/09/17 05:30 MPV 8.6 fl 03/09/17 05:30 Neutrophils % 82.3 % (40.0-80.0) H 03/04/17 05:20 Band Neutrophils % 8 % (0-10) 03/08/17 04:52 Lymphocytes % 11.2 % (20.0-50.0) L 03/04/17 05:20 Monocytes % 5.3 % (2.0-10.0) 03/04/17 05:20 Eosinophils % 1.1 % (0.0-5.0) 03/04/17 05:20 Basophils % 0.1 % (0.0-2.0) 03/04/17 05:20 Neutrophils (Manual) 67 % (40-80) 03/08/17 04:52 Lymphocytes 16 % (20-50) L 03/08/17 04:52 Monocytes 9 % (2-10) 03/08/17 04:52 Eosinophils 1 % (0-5) 03/07/17 08:20 Basophils 1 % (0-3) 03/01/17 12:26 Metamyelocytes 1 % (0-0) H 03/07/17 08:20 Myelocytes 1 % 03/07/17 08:20 Atypical Lymphocytes 1 % 03/07/17 08:20 Hypochromia 1+ 03/03/17 06:29 Platelet Estimate DECREASED PLATELETS (NORMAL) 03/08/17 04:52 Platelet Morphology NORMAL (NORMAL) 03/08/17 04:52 Polychromasia 1+ 03/03/17 06:29 Poikilocytosis 1+ 03/07/17 08:20 Anisocytosis 1+ 03/08/17 04:52 RBC Morph Micro Appear ABNORMAL (NORMAL) 03/08/17 04:52 Plt Count 37 Th/cmm (150-750) L D 03/08/17 04:52 PT 15.5 SECONDS (9.5-11.5) H 03/09/17 05:30 INR 1.46 (0.5-1.4) H 03/09/17 05:30 PTT (Actin FS) 38.6 SECONDS (26.0-38.0) H 03/09/17 05:30 Fibrinogen 227.0 mg/dL (200.0-400.0) 03/09/17 05:30 D-Dimer 3420 ng/mL (100-400) H 03/09/17 05:30 Specimen Source Arterial 03/08/17 09:30 Sample Site Left Radial 03/08/17 09:30 pH 7.31 (7.35-7.45) L 03/08/17 09:30 pCO2 61.0 mmHg (35.0-45.0) H* 03/08/17 09:30 pO2 136.0 mmHg (80.0-100.0) H 03/08/17 09:30 HCO3 27.3 mEq/L (20.0-26.0) H 03/08/17 09:30 Base Excess 3.0 mEq/L (-3.0-3.0) 03/08/17 09:30 O2 Saturation 99.0 % (92.0-100.0) 03/08/17 09:30 Chaz Test Positive 03/08/17 09:30 Vent Rate 12 03/08/17 09:30 Inspired O2 70 03/08/17 09:30 Tidal Volume 500 03/08/17 09:30 PEEP 0 03/08/17 09:30 Pressure (ins/psv/peep) NA 03/08/17 09:30 Critical Value ACELIS 03/08/17 09:30 Sodium 133 mEq/L (136-145) L 03/09/17 05:30 Potassium 4.0 mEq/L (3.5-5.1) 03/09/17 05:30 Chloride 98 mEq/L (98-107) 03/09/17 05:30 Carbon Dioxide 27.8 mEq/L (21.0-31.0) 03/09/17 05:30 Anion Gap 11.2 (7.0-16.0) 03/09/17 05:30 BUN 37 mg/dL (7-25) H 03/09/17 05:30 Creatinine 3.1 mg/dL (0.6-1.2) H 03/09/17 05:30 Est GFR ( Amer) 19.2 ml/min (>90) 03/09/17 05:30 Est GFR (Non-Af Amer) 15.8 ml/min 03/09/17 05:30 BUN/Creatinine Ratio 11.9 03/09/17 05:30 Glucose 99 mg/dL (70-105) 03/09/17 05:30 POC Glucose 98 MG/DL (70 - 105) 03/09/17 06:23 Hemoglobin A1c % 4.6 % (4.0-6.0) 02/27/17 19:30 Whole Bld Lactic Acid 3.33 mmol/L (0.60-1.99) H* 03/07/17 10:48 Calcium 8.5 mg/dL (8.6-10.3) L 03/09/17 05:30 Phosphorus 1.4 mg/dL (2.5-5.0) L 03/09/17 05:30 Magnesium 1.9 mg/dL (1.9-2.7) 03/09/17 05:30 Total Bilirubin 5.5 mg/dL (0.3-1.0) H 03/09/17 05:30 Direct Bilirubin 3.53 mg/dL (0.0-0.2) H 03/09/17 05:30 AST 49 U/L (13-39) H 03/09/17 05:30 ALT 13 U/L (7-52) 03/09/17 05:30 Alkaline Phosphatase 165 U/L (34-104) H 03/09/17 05:30 Ammonia 186 umol/L (16-53) H 03/08/17 04:52 Troponin I 0.05 ng/mL (0.01-0.05) 03/07/17 08:20 Total Protein 5.2 gm/dL (6.0-8.3) L 03/09/17 05:30 Albumin 2.2 gm/dL (3.7-5.3) L 03/09/17 05:30 Globulin 3.0 gm/dL 03/09/17 05:30 Albumin/Globulin Ratio 0.7 (1.0-1.8) L 03/09/17 05:30 Prealbumin <3 mg/dL (10-36) L 03/05/17 07:45 Triglycerides 112 mg/dL (<150) 03/03/17 06:29 Cholesterol < 25 mg/dL (<200) 03/05/17 07:45 TSH 4.18 uIU/ml (0.34-5.60) 03/08/17 04:52 Random Amikacin 18.7 ug/ml (1.0-30.0) 03/08/17 13:19 Gentamicin Peak 8.8 ug/ml (4.0-8.0) 03/01/17 10:00 Gentamicin Trough ug/ml (0.2-2.0) 03/01/17 08:30 Serum Ketones NEGATIVE (NEGATIVE) 02/27/17 19:30 Hepatitis A IgM Ab Negative (Negative) 03/02/17 05:36 Hep Bs Antigen Negative (Negative) 03/02/17 05:36 Hep B Core IgM Ab Negative (Negative) 03/02/17 05:36 Hepatitis C Antibody <0.1 s/co ratio (0.0-0.9) 03/02/17 05:36 Blood Type A POSITIVE 03/06/17 14:30 Antibody Screen NEGATIVE 03/06/17 14:30 Crossmatch See Detail 03/06/17 10:42 - Physical Exam Vitals and I&O: Vital Signs Temp 98.7 F 03/09/17 00:00 Pulse 105 03/09/17 07:25 Resp 23 03/09/17 06:00 BP 85/29 03/09/17 06:45 Pulse Ox 98 03/09/17 07:25 Intake & Output 03/08/17 03/09/17 03/09/17 18:59 06:59 18:59 Intake Total 3690.239 2043.568 29.21 Output Total 700 Balance 2990.239 2043.568 29.21 Weight (lbs) 134.263 kg 135.171 kg Intake: Intake, IV Amount 2370.239 1693.568 29.21 Amikacin 300 mg In 101.2 Dextrose 5% 100 ml @ 100 mls/hr IV TuThSa [facility] Rx#: [id number] Diltiazem 125 mg In 82.066 142.633 Dextrose 5% 100 ml @ 10 MG/HR 10 mls/hr IV TITR [facility] Rx#:[id number] Meropenem 500 mg In 100 Sodium Chloride 0.9% 100 ml @ 100 mls/hr IV Q24H [facility] Rx#:[id number] Multivitamin Inj 10 ml In 1421 828 Amino Acids 3% / Electrolytes 700 ml In Intralipids 20% 50 ml In Dextrose 10% 680 ml @ 60 mls/hr IV .Q24H [facility] Rx#: [id number] Norepinephrine 4 mg In 485.140 622.935 29.21 Dextrose 5% 250 ml @ 37.5 MCG/MIN 142.87 mls/hr IV TITR PRN Rx#:[id number] Tigecycline 50 mg In 100.000 100 Sodium Chloride 0.9% 100 ml @ 100 mls/hr IV Q12H [facility] Rx#:[id number] Oral 0 Tube Feeding 0 TPN/PPN 720 Blood Product 600 350 Lipid 0 Albumin 0 Other 0 Output: Gastric Drainage 0 Drainage 350 Left Lower Abdomen 250 Right Lower Abdomen 100 Urine 0 Stool 0 Urine/Stool Mix 0 Emesis 0 Hemodialysis 0 Other 350 Other: # Voids 0 # Bowel Movements 0 Active Medications: Current Medications Acetaminophen/Hydrocodone Bitart ([place] 10 Mg/325 Mg) 1 tab PO Q6H PRN PRN Reason: Pain (Moderate) Stop: 05/04/17 09:27 Albuterol Sulfate (Albuterol 2.5mg/3ml Neb Ud) 2.5 mg HHN Q2H PRN PRN Reason: Shortness of Breath Stop: 04/29/17 03:59 Last Admin: 03/07/17 15:26 Dose: 2.5 mg Albuterol/Ipratropium (Duoneb Neb) 3 ml HHN Q4HRT [facility] Stop: 05/04/17 22:59 Last Admin: 03/09/17 07:09 Dose: 3 ml Ascorbic Acid (Vitamin C) 500 mg PO DAILY [facility] Stop: 04/29/17 08:59 Last Admin: 03/08/17 08:18 Dose: Not Given Budesonide (Pulmicort) 0.25 mg HHN BIDRT [facility] Stop: 05/05/17 06:59 Last Admin: 03/09/17 07:09 Dose: 0.25 mg Chlorhexidine Gluconate (Peridex) 15 ml MM 08,1999 [facility] Stop: 05/05/17 19:59 Last Admin: 03/08/17 20:30 Dose: 15 ml Cholecalciferol (Vitamin D3) 2,000 iu PO DAILY [facility] Stop: 04/29/17 08:59 Last Admin: 03/08/17 08:18 Dose: Not Given Diphenhydramine HCl (Benadryl) 25 mg PO Q6H PRN PRN Reason: Itching Stop: 04/29/17 03:39 Escitalopram Oxalate (Lexapro) 10 mg PO DAILY [facility] PRN Reason: Protocol Stop: 04/29/17 08:59 Last Admin: 03/08/17 08:18 Dose: Not Given Famotidine (Pepcid) 20 mg IVP DAILY [facility] Stop: 05/01/17 08:59 Last Admin: 03/08/17 08:45 Dose: 20 mg Fludrocortisone Acetate (Florinef) 0.1 mg PO BID [facility] Stop: 04/29/17 08:59 Last Admin: 03/08/17 16:43 Dose: Not Given Diltiazem HCl 125 mg/ Dextrose 125 mls @ 10 mls/hr IV TITR [facility]; 10 MG/HR PRN Reason: Protocol Stop: 04/29/17 04:14 Last Titration: 03/09/17 06:17 Dose: 13 mg/hr, 13 mls/hr Tigecycline 50 mg/ Sodium (Chloride) 100 mls @ 100 mls/hr IV Q12H [facility] Stop: 04/30/17 11:29 Last Infusion: 03/09/17 00:49 Dose: Infused Multivitamins/Minerals 10 ml/Amino Acids/Electrolytes/ Fat Emulsion Intravenous / Dextrose 1,440 mls @ 60 mls/hr IV .Q24H [facility] Stop: 05/02/17 15:59 Last Infusion: 03/09/17 06:17 Dose: 60 mls/hr Amikacin Sulfate 300 mg/ (Dextrose) 101.2 mls @ 100 mls/hr IV PRN PRN PRN Reason: After ea. HD on MWF Stop: 05/05/17 14:59 Meropenem 500 mg/ Sodium (Chloride) 100 mls @ 100 mls/hr IV Q24H [facility] Stop: 05/05/17 08:59 Last Infusion: 03/08/17 09:47 Dose: Infused Norepinephrine Bitartrate 4 mg (/ Dextrose) 254 mls @ 142.87 mls/hr IV TITR PRN ; Protocol; 37.5 MCG/MIN PRN Reason: BP MAINTENANCE (PER PROTOCOL) Stop: 05/04/17 22:40 Last Titration: 03/09/17 07:03 Dose: 14 mcg/min, 53.34 mls/hr Amikacin Sulfate 300 mg/ (Dextrose) 101.2 mls @ 100 mls/hr IV TuThSa [facility] Stop: 05/07/17 15:49 Last Infusion: 03/08/17 18:43 Dose: Infused Levetiracetam (Keppra Pb) 500 mg in 100 mls @ 400 mls/hr IV Q12H [facility] Stop: 05/08/17 08:59 Insulin Aspart (Novolog Insulin Sliding Scale) 0 units SUBQ Q6HR [facility] PRN Reason: Protocol Stop: 05/03/17 00:00 Last Admin: 03/09/17 06:53 Dose: Not Given Lactobacillus Rhamnosus (Culturelle) 1 each PO DAILY [facility] Stop: 05/01/17 08:59 Last Admin: 03/08/17 08:18 Dose: Not Given Lorazepam (Ativan) 2 mg IVP Q4HR PRN; Protocol PRN Reason: Anxiety Stop: 05/04/17 20:17 Last Admin: 03/09/17 06:52 Dose: 2 mg Metoprolol Tartrate (Lopressor) 50 mg PO Q12HR [facility] Stop: 04/29/17 08:59 Last Admin: 03/08/17 20:31 Dose: Not Given Miscellaneous (Clinical Monitoring) 1 ea [facility] DAILY PRN PRN Reason: RENAL Stop: 04/29/17 10:50 Miscellaneous (Vte Chemical Prophylaxis Screen/ Admission) 1 ea [facility] PRN PRN PRN Reason: PROTOCOL Stop: 04/29/17 15:40 Miscellaneous (Probiotic Screen) 1 ea [facility] PRN PRN PRN Reason: PROTOCOL Stop: 04/30/17 10:56 Miscellaneous (Tpn Per Pharmacy) 1 ea [facility] PRN PRN PRN Reason: PROTOCOL Stop: 04/30/17 18:13 Zinc Sulfate (Zinc Sulfate) 220 mg PO DAILY [facility] Stop: 04/29/17 08:59 Last Admin: 03/08/17 08:19 Dose: Not Given General: Other (intubated and sedated), no Alert HEENT: Atraumatic, PERRLA, Other (endotracheal tube noted .) Neck: Supple, +2 carotid pulse wo bruit Cardiovascular: Systolic murmurs, Other (irregularly irregular.) Lungs: Other (diffuse rhonchi throughout.) Abdomen: Bowel sounds, Soft, Obese, Other (multiple abd wounds, w/ wound vac.) Extremities: Other (ecchymosis, hematomas, petecchiae,debrided wound.), no Edema Neurological: Sensation intact, Other (stuporous) Skin: Rash, Breakdown (multiple blisters), Significant lesion (multiple bruises and ecchymosis, ischemic wounds.) Psych/Mental Status: Other (intubated and sedated) - Procedures Procedures: Procedures Procedure Code Date EXCISION OF ABD SUBCU/FASCIA, OPEN APPROACH [id number] 02/27/17 EXCISION OF R LOW LEG SUBCU/FASCIA, OPEN APPROACH [id number] 02/27/17 INSERT EMERGENCY AIRWAY [id number] 02/27/17 INSERTION OF ENDOTRACHEAL AIRWAY INTO TRACHEA, VIA OPENING [id number] 02/27/17 REMOVAL OF PRESSURE SORE [id number] 02/27/17 RESPIRATORY VENTILATION, 24-96 CONSECUTIVE HOURS [id number] 02/27/17 VENT MGMT INPAT INIT DAY [id number] 02/27/17 Assessment/Plan - Assessment Assessment: Septic shock. Multiple infected wounds on abdomen and extremities status post debridement with wound VAC. End-stage renal disease on hemodialysis. Hypertension. Most Likely seizure. Acute respiratory failure requiring endotracheal intubation and mechanical ventilation. Coronary artery disease. Possible ARDS. Severe thrombocytopenia secondary to DIC and possible medication related. Anemia of chronic kidney disease and anemia of inflammation. Chronic atrial fibrillation. DIC positive. History of DVT and jugular venous thrombosis. Heparin induced thrombocytopenia history. Diffuse DJD. Bed confined. Guarded prognosis. - Plan Plan: ICU status. Vent support. HHN. EEG. Neuro consult. Guarded prognosis. Pulmo consult and follow up. IV antibiotics as per ID. Hemodialysis as schedule. Wound care as per surgery. Cardiac monitoring. Hematology consultation and follow up. Cardiology consultation and follow-up General nursing care ID follow-up and follow the recommendations Follow labs. Follow-up consultants recommendations. Prognosis guarded. ICU care. Anticoagulation therapy. Chronic management of her chronic illnesses. Care plan reviewed and discussed with RN. Nutritional Asmnt/Malnutr-PDOC - Dietary Evaluation Malnutrition Findings (Please click <Entered> for more info): Nutritional Asmnt/Malnutrition Start: 02/28/17 14: 25 Text: Status: Complete Freq: Document 02/28/17 14:32 GSUN (Rec: 02/28/17 14:52 [email or web address] [email or web address]) Nutritional Asmnt/Malnutrition Patient General Information Nutritional Screening High Risk Screening Diagnosis Infectured multiple abdominal wound, sepsis, hypotension Pertinent Medical Hx/Surgical Hx DM, end stage renal failure, obesity, multiple abdominal wound, anemia Subjective Information 71 [address] consult for wounds/calciphylaxis. Pt was lethargic during visit, spoke to at bedside. Briefly explained renal diet, agreeable to plan, not suitble for extensive edu at this time. Pt appeared obese. Pt reported UBW 250lb measured 1 month ago, pt is unsure of dry weight at dialysis center. Pt reported has gradually lost weight 80lb over the past year due to poor appetite and hospitalizations. RD recommended oral supplements, pt denied, stating she has tried and threw up. Current Diet Order/ Nutrition Support Renal, 1800kcal Pertinent Medications Vitamin C, Vitamin D3, D5-0. 45ns, Pepcid, Novolog, Culturelle, Morphine, Zinc Sulfate Pertinent Labs 8/: BUN 38H, creatinine 5H, phosphorus 5.4H Nutritional Hx/Data Height 1.63 m Height (Calculated Centimeters) 162.6 Current Weight (lbs) 113.398 kg Weight (Calculated Kilograms) 113.4 Weight (Calculated Grams) 807349.1 [place] Body Weight 120 Recent Weight Change Yes Weight Status Morbidly Obese GI Symptoms Skin Integrity/Comment: Bilateral lower extremities pitting 3+. Abdominal wounds/ calciphylaxis Estimated Nutritional Goals BEE in Kcals: Adj wt of IBW Calories/Kcals/Kg AdjBW 152.5lb/69.3kg (adjsuted to UBW) Kcals Calculated 9-2426kcal (30-35kcal/kg) Protein: Adj wt of IBW Protein Calculated 90-104g (1.2-1.5/gkg) Fluid: ml 2079-2426ml (1ml/kcal) Nutritional Problem 3. Problem Problem Malnutrition related to Etiology unknown etiology, energy imbalance aeb Signs/Symptoms: BMI >40 2. Problem Problem Increased kcal and prot needs related to Etiology hypermetabolic state aeb Signs/Symptoms: on HD, sepsis 1. Problem Problem Impaired nutrient utilization related to Etiology end stage renal failure aeb Signs/Symptoms: on HD, BUN 38H, creatinine 5H, phosphorus 5.4H Malnutrition Related to Morbid Obesity Malnutrition related to morbid obesity BMI> or equal to 40 Query Text:(Any 1 Criteria met) Malnutrition related to morbid obesity Yes Intervention/Recommendation Comments 1. Recommend renal diet. Briefly explained renal diet, pt is agreeable to plan. Encourage PO intake. 2. Recommend removing " 1800kcal" restriction as pt is in hypermetabolic state ( sepsis, HD) and obese, requiring more than 1800kcal, weight loss not favorable at this time. 3. Pt reported poor appetite many months, RD recommend oral supplements, pt declined. Expected Outcomes/Goals Expected Outcomes/Goals 1. PO intake to meet at least 75% of estimated nutritional needs.
[2017-03-09 09:04] LABS: TOTAL CELLS COUNTED 100
[2017-03-09 09:05] LABS: BAND NEUTROPHILE 7 % (0-10); NEUTROPHILS 70 % (40-80); PLATELET ESTIMATE DECREASED PLATELETS (NORMAL)
[2017-03-09 09:23] LABS: pH 7.54 (7.35-7.45)
[2017-03-09 09:24] LABS: ABG SOURCE Arterial; ALLEN TEST YES; BE(B) 7.9 mEq/L (-3.0-3.0); FIO2 50; HCO3 31.1 mEq/L (20.0-26.0); MECH RATE 12; MECH VT 500
[2017-03-09] MEDS ORDERED: Sodium Phosphate 30 MMOLE in Sodium Chloride 0.9% 250 ML IV ONE (10:00)
[2017-03-09] MEDS: Lactobacillus Rhamnosus 10 Billion CFU Capsule PO SCH (10:37)
--- NOTE | 2017-03-09 13:10 | General Progress Note ---
Subjective - Review of Systems Service Date: 03/09/17 Events since last encounter: Hb 7.5, to have PRBC wound vac full, will replace Objective - Results Result Diagrams: 03/09/17 05:30 03/09/17 05:30 Recent Labs: Laboratory Last Values WBC 17.3 Th/cmm (4.8-10.8) H 03/09/17 05:30 RBC 2.36 Mil/cmm (3.80-5.20) L 03/09/17 05:30 Hgb 7.5 gm/dL (11.7-16.1) L* D 03/09/17 05:30 Hct 21.9 % (35.0-45.0) L* D 03/09/17 05:30 MCV 92.8 fl (81-100) 03/09/17 05:30 MCH 31.9 pg (27.0-31.0) H 03/09/17 05:30 MCHC Differential 34.3 pg (28.0-36.0) 03/09/17 05:30 RDW 15.2 % (11.5-20.0) 03/09/17 05:30 Plt Count 66 Th/cmm (150-400) L D 03/09/17 05:30 MPV 8.6 fl 03/09/17 05:30 Neutrophils % 82.3 % (40.0-80.0) H 03/04/17 05:20 Band Neutrophils % 7 % (0-10) 03/09/17 05:30 Lymphocytes % 11.2 % (20.0-50.0) L 03/04/17 05:20 Monocytes % 5.3 % (2.0-10.0) 03/04/17 05:20 Eosinophils % 1.1 % (0.0-5.0) 03/04/17 05:20 Basophils % 0.1 % (0.0-2.0) 03/04/17 05:20 Neutrophils (Manual) 70 % (40-80) 03/09/17 05:30 Lymphocytes 15 % (20-50) L 03/09/17 05:30 Monocytes 8 % (2-10) 03/09/17 05:30 Eosinophils 1 % (0-5) 03/07/17 08:20 Basophils 1 % (0-3) 03/01/17 12:26 Metamyelocytes 1 % (0-0) H 03/07/17 08:20 Myelocytes 1 % 03/07/17 08:20 Atypical Lymphocytes 1 % 03/07/17 08:20 Hypochromia 1+ 03/03/17 06:29 Platelet Estimate DECREASED PLATELETS (NORMAL) 03/09/17 05:30 Platelet Morphology NORMAL (NORMAL) 03/08/17 04:52 Polychromasia 1+ 03/03/17 06:29 Poikilocytosis 1+ 03/07/17 08:20 Anisocytosis 1+ 03/08/17 04:52 RBC Morph Micro Appear ABNORMAL (NORMAL) 03/08/17 04:52 Plt Count 37 Th/cmm (150-750) L D 03/08/17 04:52 PT 15.5 SECONDS (9.5-11.5) H 03/09/17 05:30 INR 1.46 (0.5-1.4) H 03/09/17 05:30 PTT (Actin FS) 38.6 SECONDS (26.0-38.0) H 03/09/17 05:30 Fibrinogen 227.0 mg/dL (200.0-400.0) 03/09/17 05:30 D-Dimer 3420 ng/mL (100-400) H 03/09/17 05:30 Specimen Source Arterial 03/09/17 09:18 Sample Site Right Radial 03/09/17 09:18 pH 7.54 (7.35-7.45) H 03/09/17 09:18 pCO2 36.0 mmHg (35.0-45.0) 03/09/17 09:18 pO2 102.0 mmHg (80.0-100.0) H 03/09/17 09:18 HCO3 31.1 mEq/L (20.0-26.0) H 03/09/17 09:18 Base Excess 7.9 mEq/L (-3.0-3.0) H 03/09/17 09:18 O2 Saturation 99.0 % (92.0-100.0) 03/09/17 09:18 Chaz Test YES 03/09/17 09:18 Vent Rate 12 03/09/17 09:18 Inspired O2 50 03/09/17 09:18 Tidal Volume 500 03/09/17 09:18 PEEP NA 03/09/17 09:18 Pressure (ins/psv/peep) NA 03/09/17 09:18 Critical Value E.NUNN 03/09/17 09:18 Sodium 133 mEq/L (136-145) L 03/09/17 05:30 Potassium 4.0 mEq/L (3.5-5.1) 03/09/17 05:30 Chloride 98 mEq/L (98-107) 03/09/17 05:30 Carbon Dioxide 27.8 mEq/L (21.0-31.0) 03/09/17 05:30 Anion Gap 11.2 (7.0-16.0) 03/09/17 05:30 BUN 37 mg/dL (7-25) H 03/09/17 05:30 Creatinine 3.1 mg/dL (0.6-1.2) H 03/09/17 05:30 Est GFR ( Amer) 19.2 ml/min (>90) 03/09/17 05:30 Est GFR (Non-Af Amer) 15.8 ml/min 03/09/17 05:30 BUN/Creatinine Ratio 11.9 03/09/17 05:30 Glucose 99 mg/dL (70-105) 03/09/17 05:30 POC Glucose 98 MG/DL (70 - 105) 03/09/17 06:23 Hemoglobin A1c % 4.6 % (4.0-6.0) 02/27/17 19:30 Whole Bld Lactic Acid 3.33 mmol/L (0.60-1.99) H* 03/07/17 10:48 Calcium 8.5 mg/dL (8.6-10.3) L 03/09/17 05:30 Phosphorus 1.4 mg/dL (2.5-5.0) L 03/09/17 05:30 Magnesium 1.9 mg/dL (1.9-2.7) 03/09/17 05:30 Total Bilirubin 5.5 mg/dL (0.3-1.0) H 03/09/17 05:30 Direct Bilirubin 3.53 mg/dL (0.0-0.2) H 03/09/17 05:30 AST 49 U/L (13-39) H 03/09/17 05:30 ALT 13 U/L (7-52) 03/09/17 05:30 Alkaline Phosphatase 165 U/L (34-104) H 03/09/17 05:30 Ammonia 186 umol/L (16-53) H 03/08/17 04:52 Troponin I 0.05 ng/mL (0.01-0.05) 03/07/17 08:20 Total Protein 5.2 gm/dL (6.0-8.3) L 03/09/17 05:30 Albumin 2.2 gm/dL (3.7-5.3) L 03/09/17 05:30 Globulin 3.0 gm/dL 03/09/17 05:30 Albumin/Globulin Ratio 0.7 (1.0-1.8) L 03/09/17 05:30 Prealbumin <3 mg/dL (10-36) L 03/05/17 07:45 Triglycerides 112 mg/dL (<150) 03/03/17 06:29 Cholesterol < 25 mg/dL (<200) 03/05/17 07:45 TSH 4.18 uIU/ml (0.34-5.60) 03/08/17 04:52 PTH Intact 43 pg/mL (15-65) 03/08/17 04:52 Random Amikacin 18.7 ug/ml (1.0-30.0) 03/08/17 13:19 Gentamicin Peak 8.8 ug/ml (4.0-8.0) 03/01/17 10:00 Gentamicin Trough ug/ml (0.2-2.0) 03/01/17 08:30 Serum Ketones NEGATIVE (NEGATIVE) 02/27/17 19:30 Hepatitis A IgM Ab Negative (Negative) 03/02/17 05:36 Hep Bs Antigen Negative (Negative) 03/02/17 05:36 Hep B Core IgM Ab Negative (Negative) 03/02/17 05:36 Hepatitis C Antibody <0.1 s/co ratio (0.0-0.9) 03/02/17 05:36 Blood Type A POSITIVE 03/08/17 04:52 Antibody Screen NEGATIVE 03/08/17 04:52 Crossmatch See Detail 03/06/17 10:42 - Physical Exam Vitals and I&O: Vital Signs Temp 98.7 F 03/09/17 00:00 Pulse 104 03/09/17 11:12 Resp 23 03/09/17 06:00 BP 154/76 03/09/17 09:29 Pulse Ox 96 03/09/17 11:12 Intake & Output 03/08/17 03/09/17 03/09/17 18:59 06:59 18:59 Intake Total 3690.239 2043.568 153.327 Output Total 700 Balance 2990.239 2043.568 153.327 Weight (lbs) 134.263 kg 135.171 kg Intake: Intake, IV Amount 2370.239 1693.568 153.327 Amikacin 300 mg In 101.2 Dextrose 5% 100 ml @ 100 mls/hr IV TuThSa CECIL Rx#: [id number] Diltiazem 125 mg In 82.066 142.633 22.517 Dextrose 5% 100 ml @ 10 MG/HR 10 mls/hr IV TITR [facility] Rx#:[id number] Meropenem 500 mg In 100 Sodium Chloride 0.9% 100 ml @ 100 mls/hr IV Q24H [facility] Rx#:[id number] Multivitamin Inj 10 ml In 1421 828 Amino Acids 3% / Electrolytes 700 ml In Intralipids 20% 50 ml In Dextrose 10% 680 ml @ 60 mls/hr IV .Q24H [facility] Rx#: [id number] Norepinephrine 4 mg In 485.140 622.935 130.81 Dextrose 5% 250 ml @ 37.5 MCG/MIN 142.87 mls/hr IV TITR PRN Rx#:[id number] Tigecycline 50 mg In 100.000 100 Sodium Chloride 0.9% 100 ml @ 100 mls/hr IV Q12H [facility] Rx#:[id number] Oral 0 Tube Feeding 0 TPN/PPN 720 Blood Product 600 350 Lipid 0 Albumin 0 Other 0 Output: Gastric Drainage 0 Drainage 350 Left Lower Abdomen 250 Right Lower Abdomen 100 Urine 0 Stool 0 Urine/Stool Mix 0 Emesis 0 Hemodialysis 0 Other 350 Other: # Voids 0 # Bowel Movements 0 Active Medications: Current Medications Acetaminophen/Hydrocodone Bitart ([place] 10 Mg/325 Mg) 1 tab PO Q6H PRN PRN Reason: Pain (Moderate) Stop: 05/04/17 09:27 Albuterol Sulfate (Albuterol 2.5mg/3ml Neb Ud) 2.5 mg HHN Q2H PRN PRN Reason: Shortness of Breath Stop: 04/29/17 03:59 Last Admin: 03/07/17 15:26 Dose: 2.5 mg Albuterol/Ipratropium (Duoneb Neb) 3 ml HHN Q4HRT [facility] Stop: 05/04/17 22:59 Last Admin: 03/09/17 11:12 Dose: 3 ml Ascorbic Acid (Vitamin C) 500 mg PO DAILY [facility] Stop: 04/29/17 08:59 Last Admin: 03/09/17 10:38 Dose: 500 mg Budesonide (Pulmicort) 0.25 mg HHN BIDRT [facility] Stop: 05/05/17 06:59 Last Admin: 03/09/17 07:09 Dose: 0.25 mg Chlorhexidine Gluconate (Peridex) 15 ml MM 08,1999 [facility] Stop: 05/05/17 19:59 Last Admin: 03/08/17 20:30 Dose: 15 ml Cholecalciferol (Vitamin D3) 2,000 iu PO DAILY [facility] Stop: 04/29/17 08:59 Last Admin: 03/09/17 10:38 Dose: 1,000 iu Diphenhydramine HCl (Benadryl) 25 mg PO Q6H PRN PRN Reason: Itching Stop: 04/29/17 03:39 Escitalopram Oxalate (Lexapro) 10 mg PO DAILY [facility] PRN Reason: Protocol Stop: 04/29/17 08:59 Last Admin: 03/09/17 10:37 Dose: 10 mg Famotidine (Pepcid) 20 mg IVP DAILY [facility] Stop: 05/01/17 08:59 Last Admin: 03/09/17 10:37 Dose: 20 mg Fludrocortisone Acetate (Florinef) 0.1 mg PO BID [facility] Stop: 04/29/17 08:59 Last Admin: 03/08/17 16:43 Dose: Not Given Diltiazem HCl 125 mg/ Dextrose 125 mls @ 10 mls/hr IV TITR [facility]; 10 MG/HR PRN Reason: Protocol Stop: 04/29/17 04:14 Last Admin: 03/09/17 09:29 Dose: 13 mg/hr, 13 mls/hr Tigecycline 50 mg/ Sodium (Chloride) 100 mls @ 100 mls/hr IV Q12H [facility] Stop: 04/30/17 11:29 Last Infusion: 03/09/17 00:49 Dose: Infused Multivitamins/Minerals 10 ml/Amino Acids/Electrolytes/ Fat Emulsion Intravenous / Dextrose 1,440 mls @ 60 mls/hr IV .Q24H [facility] Stop: 05/02/17 15:59 Last Infusion: 03/09/17 06:17 Dose: 60 mls/hr Amikacin Sulfate 300 mg/ (Dextrose) 101.2 mls @ 100 mls/hr IV PRN PRN PRN Reason: After ea. HD on MWF Stop: 05/05/17 14:59 Meropenem 500 mg/ Sodium (Chloride) 100 mls @ 100 mls/hr IV Q24H [facility] Stop: 05/05/17 08:59 Last Infusion: 03/08/17 09:47 Dose: Infused Norepinephrine Bitartrate 4 mg (/ Dextrose) 254 mls @ 142.87 mls/hr IV TITR PRN ; Protocol; 37.5 MCG/MIN PRN Reason: BP MAINTENANCE (PER PROTOCOL) Stop: 05/04/17 22:40 Last Admin: 03/09/17 10:19 Dose: 14 mcg/min, 53.34 mls/hr Levetiracetam (Keppra Pb) 500 mg in 100 mls @ 400 mls/hr IV Q12H [facility] Stop: 05/08/17 08:59 Last Admin: 03/09/17 12:31 Dose: 100 mls/hr Sodium Phosphate 30 mmole/ (Sodium Chloride) 260 mls @ 42.5 mls/hr IV X1 ONE Stop: 03/09/17 16:07 Last Admin: 03/09/17 10:28 Dose: 42.5 mls/hr Insulin Aspart (Novolog Insulin Sliding Scale) 0 units SUBQ Q6HR [facility] PRN Reason: Protocol Stop: 05/03/17 00:00 Last Admin: 03/09/17 06:53 Dose: Not Given Lactobacillus Rhamnosus (Culturelle) 1 each PO DAILY [facility] Stop: 05/01/17 08:59 Last Admin: 03/09/17 10:37 Dose: 1 each Lorazepam (Ativan) 2 mg IVP Q4HR PRN; Protocol PRN Reason: Anxiety Stop: 05/04/17 20:17 Last Admin: 03/09/17 08:45 Dose: 2 mg Metoprolol Tartrate (Lopressor) 50 mg PO Q12HR [facility] Stop: 04/29/17 08:59 Last Admin: 03/08/17 20:31 Dose: Not Given Miscellaneous (Clinical Monitoring) 1 ea [facility] DAILY PRN PRN Reason: RENAL Stop: 04/29/17 10:50 Miscellaneous (Vte Chemical Prophylaxis Screen/ Admission) 1 ea MC PRN PRN PRN Reason: PROTOCOL Stop: 04/29/17 15:40 Miscellaneous (Probiotic Screen) 1 ea MC PRN PRN PRN Reason: PROTOCOL Stop: 04/30/17 10:56 Miscellaneous (Tpn Per Pharmacy) 1 ea MC PRN PRN PRN Reason: PROTOCOL Stop: 04/30/17 18:13 Zinc Sulfate (Zinc Sulfate) 220 mg PO DAILY [facility] Stop: 04/29/17 08:59 Last Admin: 03/09/17 10:38 Dose: 220 mg General: Other (intubated and sedated), no Alert HEENT: Atraumatic, PERRLA, Other (endotracheal tube noted .) Neck: Supple, +2 carotid pulse wo bruit Cardiovascular: Systolic murmurs, Other (irregularly irregular.) Lungs: Other (diffuse rhonchi throughout.) Abdomen: Bowel sounds, Soft, Obese, Other (multiple abd wounds, w/ wound vac.) Extremities: Other (ecchymosis, hematomas, petecchiae,debrided wound.), no Edema Neurological: Sensation intact, Other (stuporous) Skin: Rash, Breakdown (multiple blisters), Significant lesion (multiple bruises and ecchymosis, ischemic wounds.) Psych/Mental Status: Other (intubated and sedated) - Procedures Procedures: Procedures Procedure Code Date EXCISION OF ABD SUBCU/FASCIA, OPEN APPROACH [id number] 02/27/17 EXCISION OF R LOW LEG SUBCU/FASCIA, OPEN APPROACH [id number] 02/27/17 INSERT EMERGENCY AIRWAY [id number] 02/27/17 INSERTION OF ENDOTRACHEAL AIRWAY INTO TRACHEA, VIA OPENING [id number] 02/27/17 REMOVAL OF PRESSURE SORE [id number] 02/27/17 RESPIRATORY VENTILATION, 24-96 CONSECUTIVE HOURS [id number] 02/27/17 VENT MGMT INPAT INIT DAY [id number] 02/27/17 Nutritional Asmnt/Malnutr-PDOC - Dietary Evaluation Malnutrition Findings (Please click <Entered> for more info): Nutritional Asmnt/Malnutrition Start: 02/28/17 14: 25 Text: Status: Complete Freq: Document 02/28/17 14:32 GSUN (Rec: 02/28/17 14:52 [email or web address]) Nutritional Asmnt/Malnutrition Patient General Information Nutritional Screening High Risk Screening Diagnosis Infectured multiple abdominal wound, sepsis, hypotension Pertinent Medical Hx/Surgical Hx DM, end stage renal failure, obesity, multiple abdominal wound, anemia Subjective Information 71 [address] consult for wounds/calciphylaxis. Pt was lethargic during visit, spoke to at bedside. Briefly explained renal diet, agreeable to plan, not suitble for extensive edu at this time. Pt appeared obese. Pt reported UBW 250lb measured 1 month ago, pt is unsure of dry weight at dialysis center. Pt reported has gradually lost weight 80lb over the past year due to poor appetite and hospitalizations. RD recommended oral supplements, pt denied, stating she has tried and threw up. Current Diet Order/ Nutrition Support Renal, 1800kcal Pertinent Medications Vitamin C, Vitamin D3, D5-0. 45ns, Pepcid, Novolog, Culturelle, Morphine, Zinc Sulfate Pertinent Labs 02/28: BUN 38H, creatinine 5H, phosphorus 5.4H Nutritional Hx/Data Height 1.63 m Height (Calculated Centimeters) 162.6 Current Weight (lbs) 113.398 kg Weight (Calculated Kilograms) 113.4 Weight (Calculated Grams) 532893.1 [place] Body Weight 120 Recent Weight Change Yes Weight Status Morbidly Obese GI Symptoms Skin Integrity/Comment: Bilateral lower extremities pitting 3+. Abdominal wounds/ calciphylaxis Estimated Nutritional Goals BEE in Kcals: Adj wt of IBW Calories/Kcals/Kg AdjBW 152.5lb/69.3kg (adjsuted to UBW) Kcals Calculated 2079-2426kcal (30-35kcal/kg) Protein: Adj wt of IBW Protein Calculated 90-104g (1.2-1.5/gkg) Fluid: ml 2079-2426ml (1ml/kcal) Nutritional Problem 3. Problem Problem Malnutrition related to Etiology unknown etiology, energy imbalance aeb Signs/Symptoms: BMI >40 2. Problem Problem Increased kcal and prot needs related to Etiology hypermetabolic state aeb Signs/Symptoms: on HD, sepsis 1. Problem Problem Impaired nutrient utilization related to Etiology end stage renal failure aeb Signs/Symptoms: on HD, BUN 38H, creatinine 5H, phosphorus 5.4H Malnutrition Related to Morbid Obesity Malnutrition related to morbid obesity BMI> or equal to 40 Query Text:(Any 1 Criteria met) Malnutrition related to morbid obesity Yes Intervention/Recommendation Comments 1. Recommend renal diet. Briefly explained renal diet, pt is agreeable to plan. Encourage PO intake. 2. Recommend removing " 1800kcal" restriction as pt is in hypermetabolic state ( sepsis, HD) and obese, requiring more than 1800kcal, weight loss not favorable at this time. 3. Pt reported poor appetite many months, RD recommend oral supplements, pt declined. Expected Outcomes/Goals Expected Outcomes/Goals 1. PO intake to meet at least 75% of estimated nutritional needs.
[2017-03-09] MEDS: Chlorhexidine Gluconate 0.12% 15mL Mouthwash MM SCH ×2 (13:34→20:45)
[2017-03-09] MEDS: Levetiracetam 1000mg/100mL 1,000 MG/100 ML BAG IV SCH (13:47)
[2017-03-09] MEDS: Albuterol Nebulizer 2.5mg/3mL HHN PRN (14:12)
[2017-03-09] MEDS: MULTIVITAMIN IV SCH (16:28)
[2017-03-09] MEDS: AMINO ACIDS IV SCH (16:28)
[2017-03-09] MEDS: ELECTROLYTES IV SCH (16:28)
[2017-03-09] MEDS: [UNRECOGNIZED DRUG - OTHER] IV SCH (16:28)
[2017-03-09] MEDS: INTRALIPIDS IV SCH (16:28)
[2017-03-09] MEDS: Valproate Sodium 1,000 MG in Sodium Chloride 0.9% 100 ML IV SCH (21:38)
--- NOTE | 2017-03-09 22:10 | Progress Notes ---
DATE: 03/09/2017 PROBLEM LIST: 1. Status post sepsis. 2. Metabolic syndrome. 3. Acute respiratory failure. 4. Persistent respiratory failure with abdominal sepsis. SYMPTOMS: The patient is quite obtunded, not in any acute distress and not in respiratory distress, etc. PHYSICAL EXAMINATION: VITAL SIGNS: Temperature is 99, pulse is around 100, blood pressure 154/96, saturation is 96. ENT: Shows no new changes. CHEST: Shows scattered rhonchi with diminished air entry. HEART: Regular. ABDOMEN: Soft, nontender. EXTREMITIES: Shows some edematous changes. LABORATORY DATA: White count is 13,000, hemoglobin 7.5, ABG looks okay with with metabolic alkalosis. Chest x-ray shows some interstitial changes. ET tube in good position. ASSESSMENT: The patient is clinically stable, not much changed, is quite septic. PLANS AND SUGGESTIONS: We will continue supportive care, etc. We will watch a couple of days down the line before any attempt to wean could be made and go from there. JOB# [id number]
[2017-03-10] MEDS: INSULIN ASPART SLIDING SCALE 100 UNITS/ML UNIT SUBQ SCH ×4 (00:28→18:52)
[2017-03-10] MEDS: Levetiracetam 1000mg/100mL 1,000 MG/100 ML BAG IV SCH ×2 (01:30→14:00)
[2017-03-10] MEDS: Albuterol/Ipratropium Neb 3 ML AERS HHN SCH ×6 (03:34→23:00)
[2017-03-10] MEDS: Valproate Sodium 1,000 MG in Sodium Chloride 0.9% 100 ML IV SCH ×2 (04:15→16:10)
[2017-03-10] MEDS: Budesonide 0.5 Mg/2 mL Ud HHN SCH ×2 (07:19→19:22)
--- NOTE | 2017-03-10 08:50 | Consultation ---
DATE OF CONSULTATION: 03/09/2017 HISTORY OF PRESENT ILLNESS: : The patient is a 71-year-old, admitted on 02/27/2017. The patient with sepsis, admitted with pneumonia. The patient has respiratory failure. The patient also has abdominal wound. The patient had surgery done for that. The patient is here on sedation and intubation. The patient had hypotension; the patient is on Levaquin drip. The patient started having shaking and jerking, started with the face and upper extremity and then both sides. The patient was given Ativan, also given Keppra and then Depacon. The patient then still continued to have symptoms, then finally was given propofol. The patient's, currently seizures are better. Just an occasional twitch of the eye. PAST MEDICAL HISTORY: The patient with end-stage renal disease, hypertension, respiratory failure. She has coronary artery disease, anemia, thrombocytopenia secondary to heparin, possible DIC, atrial fibrillation. MEDICATIONS: The patient on Depacon, Keppra, now on propofol, on antibiotics. PHYSICAL EXAMINATION: VITAL SIGNS: Temperature 98.8, blood pressure ____/40, pulse is around 107. NECK: Supple, no bruits. GENERAL: The patient is obese. LUNGS: Distant bilateral crepitation. ABDOMEN: Wound in the lower abdomen area. NEUROLOGIC: The patient is intubated on the vent, does not respond to verbal. ____ stimulation, the patient will grimace a little ____ extremities. Reflexes difficult to get in the upper and lower extremities. Pupils react to light. ASSESSMENT: 1. Seizures. 2. Encephalopathy. 3. Respiratory failure. 4. Septic shock. 5. Abdominal wound. 6. End-stage renal disease. 7. Thrombocytopenia. 8. Chronic atrial fibrillation. 9. Anemia. PLAN: At this time, the patient continue with Depacon. The patient is to continue with Keppra. ____ propofol. The patient ____. CT scan of the head. JOB# [id number]
[2017-03-10] MEDS: Meropenem 500 MG in Sodium Chloride 0.9% 100 ML IV SCH ×3 (09:08→09:19)
[2017-03-10 09:48] LABS: MEAN CELL VOLUME 91.1 fl (81-100); MEAN CORPUSCULAR HEMOGLOBIN 31.2 pg (27.0-31.0); MEAN CORPUSCULAR HGB CONC 34.2 pg (28.0-36.0); MEAN PLATELET VOLUME 9.1 fl; RED BLOOD COUNT 2.49 Mil/cmm (3.80-5.20); RED CELL DISTRIBUTION WIDTH 15.1 % (11.5-20.0)
[2017-03-10 10:00] LABS: INR 1.53 (0.5-1.4); PROTHROMBIN TIME (TEST) 16.2 SECONDS (9.5-11.5)
[2017-03-10] MEDS: Venelex 60gm Tube TP SCH (10:00)
[2017-03-10 10:04] LABS: ALB/GLOB RATIO 0.7 (1.0-1.8); ANION GAP 10.6 (7.0-16.0); BILIRUBIN,TOTAL 6.2 mg/dL (0.3-1.0); BUN/CREATININE RATIO 13.3; CALCIUM SERUM 7.8 mg/dL (8.6-10.3); CREATININE - SERUM 2.7 mg/dL (0.6-1.2); MAGNESIUM 1.7 mg/dL (1.9-2.7); PHOSPHOROUS 1.8 mg/dL (2.5-5.0); POTASSIUM SERUM 3.6 mEq/L (3.5-5.1)
[2017-03-10 10:17] LABS: HEMATOCRIT 22.7 % (35.0-45.0); HEMOGLOBIN 7.8 gm/dL (11.7-16.1); PLATELET COUNT 51 Th/cmm (150-400); WHITE BLOOD COUNT 15.9 Th/cmm (4.8-10.8)
[2017-03-10] MEDS ORDERED: Mag Sulfate 2gm/50mL Premix 2 GM/50 ML BAG IV ONE (11:00)
[2017-03-10] MEDS ORDERED: Potassium Phosphate 20 MMOLE in Dextrose 5% 250 ML IV ONE (11:00)
[2017-03-10 11:04] LABS: ANISOCYTOSIS 1+; BAND NEUTROPHILE 3 % (0-10); EOSINOPHIL 8 % (0-5); NEUTROPHILS 64 % (40-80); PLATELET ESTIMATE DECREASED PLATELETS (NORMAL); PLATELET MORPHOLOGY NORMAL (NORMAL); TOTAL CELLS COUNTED 100
[2017-03-10] MEDS: Chlorhexidine Gluconate 0.12% 15mL Mouthwash MM SCH ×2 (11:07→20:40)
[2017-03-10] MEDS: Lactobacillus Rhamnosus 10 Billion CFU Capsule PO SCH (11:08)
--- NOTE | 2017-03-10 11:12 | General Progress Note ---
Subjective - Review of Systems Service Date: 03/10/17 Events since last encounter: Hb 7.7 platelets [id number] Payne to advice Objective - Results Result Diagrams: 03/10/17 09:30 03/10/17 09:30 Recent Labs: Laboratory Last Values WBC 15.9 Th/cmm (4.8-10.8) H 03/10/17 09:30 RBC 2.49 Mil/cmm (3.80-5.20) L 03/10/17 09:30 Hgb 7.8 gm/dL (11.7-16.1) L* 03/10/17 09:30 Hct 22.7 % (35.0-45.0) L* 03/10/17 09:30 MCV 91.1 fl (81-100) 03/10/17 09:30 MCH 31.2 pg (27.0-31.0) H 03/10/17 09:30 MCHC Differential 34.2 pg (28.0-36.0) 03/10/17 09:30 RDW 15.1 % (11.5-20.0) 03/10/17 09:30 Plt Count 51 Th/cmm (150-400) L D 03/10/17 09:30 MPV 9.1 fl 03/10/17 09:30 Neutrophils % 82.3 % (40.0-80.0) H 03/04/17 05:20 Band Neutrophils % 3 % (0-10) 03/10/17 09:30 Lymphocytes % 11.2 % (20.0-50.0) L 03/04/17 05:20 Monocytes % 5.3 % (2.0-10.0) 03/04/17 05:20 Eosinophils % 1.1 % (0.0-5.0) 03/04/17 05:20 Basophils % 0.1 % (0.0-2.0) 03/04/17 05:20 Neutrophils (Manual) 64 % (40-80) 03/10/17 09:30 Lymphocytes 23 % (20-50) 03/10/17 09:30 Monocytes 2 % (2-10) 03/10/17 09:30 Eosinophils 8 % (0-5) H 03/10/17 09:30 Basophils 1 % (0-3) 03/01/17 12:26 Metamyelocytes 1 % (0-0) H 03/07/17 08:20 Myelocytes 1 % 03/07/17 08:20 Atypical Lymphocytes 1 % 03/07/17 08:20 Hypochromia 1+ 03/03/17 06:29 Platelet Estimate DECREASED PLATELETS (NORMAL) 03/10/17 09:30 Platelet Morphology NORMAL (NORMAL) 03/10/17 09:30 Polychromasia 1+ 03/03/17 06:29 Poikilocytosis 1+ 03/07/17 08:20 Anisocytosis 1+ 03/10/17 09:30 RBC Morph Micro Appear ABNORMAL (NORMAL) 03/10/17 09:30 Plt Count 51 Th/cmm (150-750) L 03/10/17 09:30 PT 16.2 SECONDS (9.5-11.5) H 03/10/17 09:30 INR 1.53 (0.5-1.4) H 03/10/17 09:30 PTT (Actin FS) 46.8 SECONDS (26.0-38.0) H 03/10/17 09:30 Fibrinogen 227.0 mg/dL (200.0-400.0) 03/09/17 05:30 D-Dimer 4310 ng/mL (100-400) H 03/10/17 09:30 Specimen Source Arterial 03/09/17 09:18 Sample Site Right Radial 03/09/17 09:18 pH 7.54 (7.35-7.45) H 03/09/17 09:18 pCO2 36.0 mmHg (35.0-45.0) 03/09/17 09:18 pO2 102.0 mmHg (80.0-100.0) H 03/09/17 09:18 HCO3 31.1 mEq/L (20.0-26.0) H 03/09/17 09:18 Base Excess 7.9 mEq/L (-3.0-3.0) H 03/09/17 09:18 O2 Saturation 99.0 % (92.0-100.0) 03/09/17 09:18 Chaz Test YES 03/09/17 09:18 Vent Rate 12 03/09/17 09:18 Inspired O2 50 03/09/17 09:18 Tidal Volume 500 03/09/17 09:18 PEEP NA 03/09/17 09:18 Pressure (ins/psv/peep) NA 03/09/17 09:18 Critical Value EBINGO 03/09/17 09:18 Sodium 131 mEq/L (136-145) L 03/10/17 09:30 Potassium 3.6 mEq/L (3.5-5.1) 03/10/17 09:30 Chloride 98 mEq/L (98-107) 03/10/17 09:30 Carbon Dioxide 26.0 mEq/L (21.0-31.0) 03/10/17 09:30 Anion Gap 10.6 (7.0-16.0) 03/10/17 09:30 BUN 36 mg/dL (7-25) H 03/10/17 09:30 Creatinine 2.7 mg/dL (0.6-1.2) H 03/10/17 09:30 Est GFR ( Amer) 22.5 ml/min (>90) 03/10/17 09:30 Est GFR (Non-Af Amer) 18.6 ml/min 03/10/17 09:30 BUN/Creatinine Ratio 13.3 03/10/17 09:30 Glucose 104 mg/dL (70-105) 03/10/17 09:30 POC Glucose 119 MG/DL (70 - 105) H 03/10/17 07:05 Hemoglobin A1c % 4.6 % (4.0-6.0) 02/27/17 19:30 Whole Bld Lactic Acid 3.33 mmol/L (0.60-1.99) H* 03/07/17 10:48 Calcium 7.8 mg/dL (8.6-10.3) L 03/10/17 09:30 Phosphorus 1.8 mg/dL (2.5-5.0) L 03/10/17 09:30 Magnesium 1.7 mg/dL (1.9-2.7) L 03/10/17 09:30 Total Bilirubin 6.2 mg/dL (0.3-1.0) H 03/10/17 09:30 Direct Bilirubin 3.53 mg/dL (0.0-0.2) H 03/09/17 05:30 AST 57 U/L (13-39) H 03/10/17 09:30 ALT 12 U/L (7-52) 03/10/17 09:30 Alkaline Phosphatase 166 U/L (34-104) H 03/10/17 09:30 Ammonia 186 umol/L (16-53) H 03/08/17 04:52 Troponin I 0.05 ng/mL (0.01-0.05) 03/07/17 08:20 Total Protein 4.8 gm/dL (6.0-8.3) L 03/10/17 09:30 Albumin 1.9 gm/dL (3.7-5.3) L 03/10/17 09:30 Globulin 2.9 gm/dL 03/10/17 09:30 Albumin/Globulin Ratio 0.7 (1.0-1.8) L 03/10/17 09:30 Prealbumin <3 mg/dL (10-36) L 03/05/17 07:45 Triglycerides 112 mg/dL (<150) 03/03/17 06:29 Cholesterol < 25 mg/dL (<200) 03/05/17 07:45 TSH 4.18 uIU/ml (0.34-5.60) 03/08/17 04:52 PTH Intact 43 pg/mL (15-65) 03/08/17 04:52 Random Amikacin 18.7 ug/ml (1.0-30.0) 03/08/17 13:19 Gentamicin Peak 8.8 ug/ml (4.0-8.0) 03/01/17 10:00 Gentamicin Trough ug/ml (0.2-2.0) 03/01/17 08:30 Serum Ketones NEGATIVE (NEGATIVE) 02/27/17 19:30 Hepatitis A IgM Ab Negative (Negative) 03/02/17 05:36 Hep Bs Antigen Negative (Negative) 03/02/17 05:36 Hep B Core IgM Ab Negative (Negative) 03/02/17 05:36 Hepatitis C Antibody <0.1 s/co ratio (0.0-0.9) 03/02/17 05:36 Blood Type A POSITIVE 03/08/17 04:52 Antibody Screen NEGATIVE 03/08/17 04:52 Crossmatch See Detail 03/06/17 10:42 - Physical Exam Vitals and I&O: Vital Signs Temp 98.3 F 03/10/17 08:00 Pulse 120 03/10/17 10:00 Resp 27 03/10/17 10:00 BP 104/45 03/10/17 10:00 Pulse Ox 98 03/10/17 10:00 Intake & Output 03/09/17 03/10/17 03/10/17 18:59 06:59 18:59 Intake Total 607.327 521.817 284.008 Balance 607.327 521.817 284.008 Intake: Intake, IV Amount 607.327 521.817 284.008 Diltiazem 125 mg In 22.517 Dextrose 5% 100 ml @ 10 MG/HR 10 mls/hr IV TITR C[facility] Rx#:[id number] Levetiracetam 1000mg/ 100 100mL 1,000 mg In 100 ml @ 400 mls/hr IV Q12H [facility] Rx#:[id number] Norepinephrine 4 mg In 384.81 402.463 254 Dextrose 5% 250 ml @ 37.5 MCG/MIN 142.87 mls/hr IV TITR PRN Rx#:[id number] Propofol 1,000 mg In 100 119.354 30.008 ml @ 10 MCG/KG/MIN 8.11 mls/hr IV TITR CECIL Rx#: [id number] Tigecycline 50 mg In 100 Sodium Chloride 0.9% 100 ml @ 100 mls/hr IV Q12H PENDING SALE TO [facility] Rx#:[id number] Active Medications: Current Medications Acetaminophen/Hydrocodone Bitart ([place] 10 Mg/325 Mg) 1 tab PO Q6H PRN PRN Reason: Pain (Moderate) Stop: 05/04/17 09:27 Albuterol Sulfate (Albuterol 2.5mg/3ml Neb Ud) 2.5 mg HHN Q2H PRN PRN Reason: Shortness of Breath Stop: 04/29/17 03:59 Last Admin: 03/09/17 14:12 Dose: 2.5 mg Albuterol/Ipratropium (Duoneb Neb) 3 ml HHN Q4HRT PENDING SALE TO [facility] Stop: 05/04/17 22:59 Last Admin: 03/10/17 07:19 Dose: 3 ml Ascorbic Acid (Vitamin C) 500 mg PO DAILY PENDING SALE TO [facility] Stop: 04/29/17 08:59 Last Admin: 03/10/17 08:56 Dose: Not Given Budesonide (Pulmicort) 0.25 mg HHN BIDRT PENDING SALE TO [facility] Stop: 05/05/17 06:59 Last Admin: 03/10/17 07:19 Dose: 0.25 mg Chlorhexidine Gluconate (Peridex) 15 ml MM PENDING SALE TO [facility] Stop: 05/05/17 19:59 Last Admin: 03/10/17 11:07 Dose: 15 ml Cholecalciferol (Vitamin D3) 2,000 iu PO DAILY PENDING S[facility] TO [facility] Stop: 04/29/17 08:59 Last Admin: 03/10/17 11:07 Dose: Not Given Diphenhydramine HCl (Benadryl) 25 mg PO Q6H PRN PRN Reason: Itching Stop: 04/29/17 03:39 Escitalopram Oxalate (Lexapro) 10 mg PO DAILY CECIL PRN Reason: Protocol Stop: 04/29/17 08:59 Last Admin: 03/10/17 11:07 Dose: Not Given Famotidine (Pepcid) 20 mg IVP DAILY [facility]END[facility] TO [facility] Stop: 05/01/17 08:59 Last Admin: 03/10/17 09:06 Dose: 20 mg Fludrocortisone Acetate (Florinef) 0.1 mg PO BID PENDING SALE TO [facility] Stop: 04/29/17 08:59 Last Admin: 03/10/17 08:56 Dose: Not Given Diltiazem HCl 125 mg/ Dextrose 125 mls @ 10 mls/hr IV TITR CECIL; 10 MG/HR PRN Reason: Protocol Stop: 04/29/17 04:14 Last Admin: 03/09/17 09:29 Dose: 13 mg/hr, 13 mls/hr Tigecycline 50 mg/ Sodium (Chloride) 100 mls @ 100 mls/hr IV Q12H PENDING SALE TO [facility] Stop: 04/30/17 11:29 Last Admin: 03/10/17 00:07 Dose: 100 mls/hr Multivitamins/Minerals 10 ml/Amino Acids/Electrolytes/ Fat Emulsion Intravenous / Dextrose 1,440 mls @ 60 mls/hr IV .Q24H PENDING SALE TO [facility] Stop: 05/02/17 15:59 Last Infusion: 03/09/17 06:17 Dose: 60 mls/hr Amikacin Sulfate 300 mg/ (Dextrose) 101.2 mls @ 100 mls/hr IV PRN PRN PRN Reason: After ea. HD on MWF Stop: 05/05/17 14:59 Meropenem 500 mg/ Sodium (Chloride) 100 mls @ 100 mls/hr IV Q24H [facility] Stop: 05/05/17 08:59 Last Admin: 03/10/17 09:19 Dose: 100 mls/hr Norepinephrine Bitartrate 4 mg (/ Dextrose) 254 mls @ 142.87 mls/hr IV TITR PRN ; Protocol; 37.5 MCG/MIN PRN Reason: BP MAINTENANCE (PER PROTOCOL) Stop: 05/04/17 22:40 Last Admin: 03/10/17 10:21 Dose: 14 mcg/min, 53.34 mls/hr Levetiracetam (Keppra Pb) 1,000 mg in 100 mls @ 400 mls/hr IV Q12H [facility] Stop: 05/08/17 13:29 Last Admin: 03/10/17 01:30 Dose: 400 mls/hr Valproate Sodium 1,000 mg/ (Sodium Chloride) 110 mls @ 100 mls/hr IV Q12H [facility] Stop: 05/08/17 16:59 Last Admin: 03/10/17 04:15 Dose: 100 mls/hr Propofol (Diprivan) 1,000 mg in 100 mls @ 8.11 mls/hr IV TITR CECIL; 10 MCG/KG/ MIN PRN Reason: Protocol Stop: 05/08/17 16:51 Last Titration: 03/10/17 07:14 Dose: 10 mcg/kg/min, 8.11 mls/hr Potassium Phosphate 20 mmole/ (Dextrose) 256.6667 mls @ 62 mls/hr IV Q4H ONE Stop: 03/10/17 15:08 Magnesium Sulfate (Magnesium Sulfate Premix) 2 gm in 50 mls @ 25 mls/hr IV Q1H ONE Stop: 03/10/17 12:59 Insulin Aspart (Novolog Insulin Sliding Scale) 0 units SUBQ Q6HR C[facility]IL PRN Reason: Protocol Stop: 05/03/17 00:00 Last Admin: 03/10/17 07:10 Dose: Not Given Lactobacillus Rhamnosus (Culturelle) 1 each PO DAILY CECIL Stop: 05/01/17 08:59 Last Admin: 03/10/17 11:08 Dose: Not Given Lorazepam (Ativan) 2 mg IVP Q4HR PRN; Protocol PRN Reason: Anxiety Stop: 05/04/17 20:17 Last Admin: 03/09/17 08:45 Dose: 2 mg Lorazepam (Ativan) 4 mg IVP PRN PRN; Protocol PRN Reason: SEIZURE Stop: 05/08/17 13:42 Last Admin: 03/09/17 15:42 Dose: 4 mg Metoprolol Tartrate (Lopressor) 50 mg PO Q12HR C[facility]IL Stop: 04/29/17 08:59 Last Admin: 03/10/17 09:08 Dose: Not Given Miscellaneous (Clinical Monitoring) 1 ea DAILY PRN PRN Reason: RENAL Stop: 04/29/17 10:50 Miscellaneous (Vte Chemical Prophylaxis Screen/ Admission) 1 ea PRN PRN PRN Reason: PROTOCOL Stop: 04/29/17 15:40 Miscellaneous (Probiotic Screen) 1 ea PRN PRN PRN Reason: PROTOCOL Stop: 04/30/17 10:56 Miscellaneous (Tpn Per Pharmacy) 1 ea PRN PRN PRN Reason: PROTOCOL Stop: 04/30/17 18:13 Zinc Sulfate (Zinc Sulfate) 220 mg PO DAILY CECIL Stop: 04/29/17 08:59 Last Admin: 03/10/17 11:09 Dose: Not Given General: Other (intubated and sedated), no Alert HEENT: Atraumatic, PERRLA, Other (endotracheal tube noted .) Neck: Supple, +2 carotid pulse wo bruit Cardiovascular: Systolic murmurs, Other (irregularly irregular.) Lungs: Other (diffuse rhonchi throughout.) Abdomen: Bowel sounds, Soft, Obese, Other (multiple abd wounds, w/ wound vac.) Extremities: Other (ecchymosis, hematomas, petecchiae,debrided wound.), no Edema Neurological: Sensation intact, Other (stuporous) Skin: Rash, Breakdown (multiple blisters), Significant lesion (multiple bruises and ecchymosis, ischemic wounds.) Psych/Mental Status: Other (intubated and sedated) - Procedures Procedures: Procedures Procedure Code Date EXCISION OF ABD SUBCU/FASCIA, OPEN APPROACH [id number] 02/27/17 EXCISION OF R LOW LEG SUBCU/FASCIA, OPEN APPROACH [id number] 02/27/17 INSERT EMERGENCY AIRWAY [id number] 02/27/17 INSERTION OF ENDOTRACHEAL AIRWAY INTO TRACHEA, VIA OPENING [id number] 02/27/17 REMOVAL OF PRESSURE SORE [id number] 02/27/17 RESPIRATORY VENTILATION, 24-96 CONSECUTIVE HOURS [id number] 02/27/17 VENT MGMT INPAT INIT DAY [id number] 02/27/17 Nutritional Asmnt/Malnutr-PDOC - Dietary Evaluation Malnutrition Findings (Please click <Entered> for more info): Nutritional Asmnt/Malnutrition Start: 02/28/17 14: 25 Text: Status: Complete Freq: Document 02/28/17 14:32 GSUN (Rec: 02/28/17 14:52 [email or web address]) Nutritional Asmnt/Malnutrition Patient General Information Nutritional Screening High Risk Screening Diagnosis Infectured multiple abdominal wound, sepsis, hypotension Pertinent Medical Hx/Surgical Hx DM, end stage renal failure, obesity, multiple abdominal wound, anemia Subjective Information 71 [address] consult for wounds/calciphylaxis. Pt was lethargic during visit, spoke to at bedside. Briefly explained renal diet, agreeable to plan, not suitble for extensive edu at this time. Pt appeared obese. Pt reported UBW 250lb measured 1 month ago, pt is unsure of dry weight at dialysis center. Pt reported has gradually lost weight 80lb over the past year due to poor appetite and hospitalizations. RD recommended oral supplements, pt denied, stating she has tried and threw up. Current Diet Order/ Nutrition Support Renal, 1800kcal Pertinent Medications Vitamin C, Vitamin D3, D5-0. 45ns, Pepcid, Novolog, Culturelle, Morphine, Zinc Sulfate Pertinent Labs 02/28: BUN 38H, creatinine 5H, phosphorus 5.4H Nutritional Hx/Data Height 1.63 m Height (Calculated Centimeters) 162.6 Current Weight (lbs) 113.398 kg Weight (Calculated Kilograms) 113.4 Weight (Calculated Grams) 084165.1 [place] Body Weight 120 Recent Weight Change Yes Weight Status Morbidly Obese GI Symptoms Skin Integrity/Comment: Bilateral lower extremities pitting 3+. Abdominal wounds/ calciphylaxis Estimated Nutritional Goals BEE in Kcals: Adj wt of IBW Calories/Kcals/Kg AdjBW 152.5lb/69.3kg (adjsuted to UBW) Kcals Calculated 2079-2426kcal (30-35kcal/kg) Protein: Adj wt of IBW Protein Calculated 90-104g (1.2-1.5/gkg) Fluid: ml 2079-2426ml (1ml/kcal) Nutritional Problem 3. Problem Problem Malnutrition related to Etiology unknown etiology, energy imbalance aeb Signs/Symptoms: BMI >40 2. Problem Problem Increased kcal and prot needs related to Etiology hypermetabolic state aeb Signs/Symptoms: on HD, sepsis 1. Problem Problem Impaired nutrient utilization related to Etiology end stage renal failure aeb Signs/Symptoms: on HD, BUN 38H, creatinine 5H, phosphorus 5.4H Malnutrition Related to Morbid Obesity Malnutrition related to morbid obesity BMI> or equal to 40 Query Text:(Any 1 Criteria met) Malnutrition related to morbid obesity Yes Intervention/Recommendation Comments 1. Recommend renal diet. Briefly explained renal diet, pt is agreeable to plan. Encourage PO intake. 2. Recommend removing " 1800kcal" restriction as pt is in hypermetabolic state ( sepsis, HD) and obese, requiring more than 1800kcal, weight loss not favorable at this time. 3. Pt reported poor appetite many months, RD recommend oral supplements, pt declined. Expected Outcomes/Goals Expected Outcomes/Goals 1. PO intake to meet at least 75% of estimated nutritional needs.
--- NOTE | 2017-03-10 11:17 | General Progress Note ---
Subjective - Review of Systems Service Date: 03/10/17 Events since last encounter: sedated Subjective: unresponsive Objective - Results Result Diagrams: 03/10/17 09:30 03/10/17 09:30 Recent Labs: Laboratory Last Values WBC 15.9 Th/cmm (4.8-10.8) H 03/10/17 09:30 RBC 2.49 Mil/cmm (3.80-5.20) L 03/10/17 09:30 Hgb 7.8 gm/dL (11.7-16.1) L* 03/10/17 09:30 Hct 22.7 % (35.0-45.0) L* 03/10/17 09:30 MCV 91.1 fl (81-100) 03/10/17 09:30 MCH 31.2 pg (27.0-31.0) H 03/10/17 09:30 MCHC Differential 34.2 pg (28.0-36.0) 03/10/17 09:30 RDW 15.1 % (11.5-20.0) 03/10/17 09:30 Plt Count 51 Th/cmm (150-400) L D 03/10/17 09:30 MPV 9.1 fl 03/10/17 09:30 Neutrophils % 82.3 % (40.0-80.0) H 03/04/17 05:20 Band Neutrophils % 3 % (0-10) 03/10/17 09:30 Lymphocytes % 11.2 % (20.0-50.0) L 03/04/17 05:20 Monocytes % 5.3 % (2.0-10.0) 03/04/17 05:20 Eosinophils % 1.1 % (0.0-5.0) 03/04/17 05:20 Basophils % 0.1 % (0.0-2.0) 03/04/17 05:20 Neutrophils (Manual) 64 % (40-80) 03/10/17 09:30 Lymphocytes 23 % (20-50) 03/10/17 09:30 Monocytes 2 % (2-10) 03/10/17 09:30 Eosinophils 8 % (0-5) H 03/10/17 09:30 Basophils 1 % (0-3) 03/01/17 12:26 Metamyelocytes 1 % (0-0) H 03/07/17 08:20 Myelocytes 1 % 03/07/17 08:20 Atypical Lymphocytes 1 % 03/07/17 08:20 Hypochromia 1+ 03/03/17 06:29 Platelet Estimate DECREASED PLATELETS (NORMAL) 03/10/17 09:30 Platelet Morphology NORMAL (NORMAL) 03/10/17 09:30 Polychromasia 1+ 03/03/17 06:29 Poikilocytosis 1+ 03/07/17 08:20 Anisocytosis 1+ 03/10/17 09:30 RBC Morph Micro Appear ABNORMAL (NORMAL) 03/10/17 09:30 Plt Count 51 Th/cmm (150-750) L 03/10/17 09:30 PT 16.2 SECONDS (9.5-11.5) H 03/10/17 09:30 INR 1.53 (0.5-1.4) H 03/10/17 09:30 PTT (Actin FS) 46.8 SECONDS (26.0-38.0) H 03/10/17 09:30 Fibrinogen 214.0 mg/dL (200.0-400.0) 03/10/17 09:30 D-Dimer 4310 ng/mL (100-400) H 03/10/17 09:30 Specimen Source Arterial 03/09/17 09:18 Sample Site Right Radial 03/09/17 09:18 pH 7.54 (7.35-7.45) H 03/09/17 09:18 pCO2 36.0 mmHg (35.0-45.0) 03/09/17 09:18 pO2 102.0 mmHg (80.0-100.0) H 03/09/17 09:18 HCO3 31.1 mEq/L (20.0-26.0) H 03/09/17 09:18 Base Excess 7.9 mEq/L (-3.0-3.0) H 03/09/17 09:18 O2 Saturation 99.0 % (92.0-100.0) 03/09/17 09:18 Chaz Test YES 03/09/17 09:18 Vent Rate 12 03/09/17 09:18 Inspired O2 50 03/09/17 09:18 Tidal Volume 500 03/09/17 09:18 PEEP NA 03/09/17 09:18 Pressure (ins/psv/peep) NA 03/09/17 09:18 Critical Value JESSA 03/09/17 09:18 Sodium 131 mEq/L (136-145) L 03/10/17 09:30 Potassium 3.6 mEq/L (3.5-5.1) 03/10/17 09:30 Chloride 98 mEq/L (98-107) 03/10/17 09:30 Carbon Dioxide 26.0 mEq/L (21.0-31.0) 03/10/17 09:30 Anion Gap 10.6 (7.0-16.0) 03/10/17 09:30 BUN 36 mg/dL (7-25) H 03/10/17 09:30 Creatinine 2.7 mg/dL (0.6-1.2) H 03/10/17 09:30 Est GFR ( Amer) 22.5 ml/min (>90) 03/10/17 09:30 Est GFR (Non-Af Amer) 18.6 ml/min 03/10/17 09:30 BUN/Creatinine Ratio 13.3 03/10/17 09:30 Glucose 104 mg/dL (70-105) 03/10/17 09:30 POC Glucose 119 MG/DL (70 - 105) H 03/10/17 07:05 Hemoglobin A1c % 4.6 % (4.0-6.0) 02/27/17 19:30 Whole Bld Lactic Acid 3.33 mmol/L (0.60-1.99) H* 03/07/17 10:48 Calcium 7.8 mg/dL (8.6-10.3) L 03/10/17 09:30 Phosphorus 1.8 mg/dL (2.5-5.0) L 03/10/17 09:30 Magnesium 1.7 mg/dL (1.9-2.7) L 03/10/17 09:30 Total Bilirubin 6.2 mg/dL (0.3-1.0) H 03/10/17 09:30 Direct Bilirubin 3.53 mg/dL (0.0-0.2) H 03/09/17 05:30 AST 57 U/L (13-39) H 03/10/17 09:30 ALT 12 U/L (7-52) 03/10/17 09:30 Alkaline Phosphatase 166 U/L (34-104) H 03/10/17 09:30 Ammonia 186 umol/L (16-53) H 03/08/17 04:52 Troponin I 0.05 ng/mL (0.01-0.05) 03/07/17 08:20 Total Protein 4.8 gm/dL (6.0-8.3) L 03/10/17 09:30 Albumin 1.9 gm/dL (3.7-5.3) L 03/10/17 09:30 Globulin 2.9 gm/dL 03/10/17 09:30 Albumin/Globulin Ratio 0.7 (1.0-1.8) L 03/10/17 09:30 Prealbumin <3 mg/dL (10-36) L 03/05/17 07:45 Triglycerides 112 mg/dL (<150) 03/03/17 06:29 Cholesterol < 25 mg/dL (<200) 03/05/17 07:45 TSH 4.18 uIU/ml (0.34-5.60) 03/08/17 04:52 PTH Intact 43 pg/mL (15-65) 03/08/17 04:52 Random Amikacin 18.7 ug/ml (1.0-30.0) 03/08/17 13:19 Gentamicin Peak 8.8 ug/ml (4.0-8.0) 03/01/17 10:00 Gentamicin Trough ug/ml (0.2-2.0) 03/01/17 08:30 Serum Ketones NEGATIVE (NEGATIVE) 02/27/17 19:30 Hepatitis A IgM Ab Negative (Negative) 03/02/17 05:36 Hep Bs Antigen Negative (Negative) 03/02/17 05:36 Hep B Core IgM Ab Negative (Negative) 03/02/17 05:36 Hepatitis C Antibody <0.1 s/co ratio (0.0-0.9) 03/02/17 05:36 Blood Type A POSITIVE 03/08/17 04:52 Antibody Screen NEGATIVE 03/08/17 04:52 Crossmatch See Detail 03/06/17 10:42 - Physical Exam Vitals and I&O: Vital Signs Temp 98.3 F 03/10/17 08:00 Pulse 120 03/10/17 10:00 Resp 27 03/10/17 10:00 BP 104/45 03/10/17 10:00 Pulse Ox 98 03/10/17 10:00 Intake & Output 03/09/17 03/10/17 03/10/17 18:59 06:59 18:59 Intake Total 607.327 521.817 284.008 Balance 607.327 521.817 284.008 Intake: Intake, IV Amount 607.327 521.817 284.008 Diltiazem 125 mg In 22.517 Dextrose 5% 100 ml @ 10 MG/HR 10 mls/hr IV TITR [facility] Rx#:[id number] Levetiracetam 1000mg/ 100 100mL 1,000 mg In 100 ml @ 400 mls/hr IV Q12H [facility] Rx#:[id number] Norepinephrine 4 mg In 384.81 402.463 254 Dextrose 5% 250 ml @ 37.5 MCG/MIN 142.87 mls/hr IV TITR PRN Rx#:[id number] Propofol 1,000 mg In 100 119.354 30.008 ml @ 10 MCG/KG/MIN 8.11 mls/hr IV TITR [facility] Rx#: [id number] Tigecycline 50 mg In 100 Sodium Chloride 0.9% 100 ml @ 100 mls/hr IV Q12H [facility] Rx#:[id number] Active Medications: Current Medications Acetaminophen/Hydrocodone Bitart ([place] 10 Mg/325 Mg) 1 tab PO Q6H PRN PRN Reason: Pain (Moderate) Stop: 05/04/17 09:27 Albuterol Sulfate (Albuterol 2.5mg/3ml Neb Ud) 2.5 mg HHN Q2H PRN PRN Reason: Shortness of Breath Stop: 04/29/17 03:59 Last Admin: 03/09/17 14:12 Dose: 2.5 mg Albuterol/Ipratropium (Duoneb Neb) 3 ml HHN Q4HRT [facility] Stop: 05/04/17 22:59 Last Admin: 03/10/17 11:13 Dose: 3 ml Ascorbic Acid (Vitamin C) 500 mg PO DAILY [facility] [place] Stop: 04/29/17 08:59 Last Admin: 03/10/17 08:56 Dose: Not Given Budesonide (Pulmicort) 0.25 mg HHN BIDRT [facility] [place] Stop: 05/05/17 06:59 Last Admin: 03/10/17 07:19 Dose: 0.25 mg Chlorhexidine Gluconate (Peridex) 15 ml MM 799,1999 [facility] [place] Stop: 05/05/17 19:59 Last Admin: 03/10/17 11:07 Dose: 15 ml Cholecalciferol (Vitamin D3) 2,000 iu PO DAILY [facility] [place] Stop: 04/29/17 08:59 Last Admin: 03/10/17 11:07 Dose: Not Given Diphenhydramine HCl (Benadryl) 25 mg PO Q6H PRN PRN Reason: Itching Stop: 04/29/17 03:39 Escitalopram Oxalate (Lexapro) 10 mg PO DAILY [facility] PRN Reason: Protocol Stop: 04/29/17 08:59 Last Admin: 03/10/17 11:07 Dose: Not Given Famotidine (Pepcid) 20 mg IVP DAILY [facility] [place] Stop: 05/01/17 08:59 Last Admin: 03/10/17 09:06 Dose: 20 mg Fludrocortisone Acetate (Florinef) 0.1 mg PO BID [facility] [place] Stop: 04/29/17 08:59 Last Admin: 03/10/17 08:56 Dose: Not Given Diltiazem HCl 125 mg/ Dextrose 125 mls @ 10 mls/hr IV TITR [facility]IL; 10 MG/HR PRN Reason: Protocol Stop: 04/29/17 04:14 Last Admin: 03/09/17 09:29 Dose: 13 mg/hr, 13 mls/hr Tigecycline 50 mg/ Sodium (Chloride) 100 mls @ 100 mls/hr IV Q12H [facility] Stop: 04/30/17 11:29 Last Admin: 03/10/17 00:07 Dose: 100 mls/hr Multivitamins/Minerals 10 ml/Amino Acids/Electrolytes/ Fat Emulsion Intravenous / Dextrose 1,440 mls @ 60 mls/hr IV .Q24H [facility] [place] Stop: 05/02/17 15:59 Last Infusion: 03/09/17 06:17 Dose: 60 mls/hr Amikacin Sulfate 300 mg/ (Dextrose) 101.2 mls @ 100 mls/hr IV PRN PRN PRN Reason: After ea. HD on MWF Stop: 05/05/17 14:59 Meropenem 500 mg/ Sodium (Chloride) 100 mls @ 100 mls/hr IV Q24H [facility] Stop: 05/05/17 08:59 Last Admin: 03/10/17 09:19 Dose: 100 mls/hr Norepinephrine Bitartrate 4 mg (/ Dextrose) 254 mls @ 142.87 mls/hr IV TITR PRN ; Protocol; 37.5 MCG/MIN PRN Reason: BP MAINTENANCE (PER PROTOCOL) Stop: 05/04/17 22:40 Last Admin: 03/10/17 10:21 Dose: 14 mcg/min, 53.34 mls/hr Levetiracetam (Keppra Pb) 1,000 mg in 100 mls @ 400 mls/hr IV Q12H [facility] Stop: 05/08/17 13:29 Last Admin: 03/10/17 01:30 Dose: 400 mls/hr Valproate Sodium 1,000 mg/ (Sodium Chloride) 110 mls @ 100 mls/hr IV Q12H [facility] Stop: 05/08/17 16:59 Last Admin: 03/10/17 04:15 Dose: 100 mls/hr Propofol (Diprivan) 1,000 mg in 100 mls @ 8.11 mls/hr IV TITR [facility]; 10 MCG/KG/ MIN PRN Reason: Protocol Stop: 05/08/17 16:51 Last Titration: 03/10/17 07:14 Dose: 10 mcg/kg/min, 8.11 mls/hr Potassium Phosphate 20 mmole/ (Dextrose) 256.6667 mls @ 62 mls/hr IV Q4H ONE Stop: 03/10/17 15:08 Last Admin: 03/10/17 11:12 Dose: 62 mls/hr Magnesium Sulfate (Magnesium Sulfate Premix) 2 gm in 50 mls @ 25 mls/hr IV Q1H ONE Stop: 03/10/17 12:59 Insulin Aspart (Novolog Insulin Sliding Scale) 0 units SUBQ Q6HR [facility] PRN Reason: Protocol Stop: 05/03/17 00:00 Last Admin: 03/10/17 07:10 Dose: Not Given Lactobacillus Rhamnosus (Culturelle) 1 each PO DAILY [facility] Stop: 05/01/17 08:59 Last Admin: 03/10/17 11:08 Dose: Not Given Lorazepam (Ativan) 2 mg IVP Q4HR PRN; Protocol PRN Reason: Anxiety Stop: 05/04/17 20:17 Last Admin: 03/09/17 08:45 Dose: 2 mg Lorazepam (Ativan) 4 mg IVP PRN PRN; Protocol PRN Reason: SEIZURE Stop: 05/08/17 13:42 Last Admin: 03/09/17 15:42 Dose: 4 mg Metoprolol Tartrate (Lopressor) 50 mg PO Q12HR [facility] Stop: 04/29/17 08:59 Last Admin: 03/10/17 09:08 Dose: Not Given Miscellaneous (Clinical Monitoring) 1 ea MC DAILY PRN PRN Reason: RENAL Stop: 04/29/17 10:50 Miscellaneous (Vte Chemical Prophylaxis Screen/ Admission) 1 ea PRN PRN PRN Reason: PROTOCOL Stop: 04/29/17 15:40 Miscellaneous (Probiotic Screen) 1 ea PRN PRN PRN Reason: PROTOCOL Stop: 04/30/17 10:56 Miscellaneous (Tpn Per Pharmacy) 1 ea PRN PRN PRN Reason: PROTOCOL Stop: 04/30/17 18:13 Zinc Sulfate (Zinc Sulfate) 220 mg PO DAILY [facility] Stop: 04/29/17 08:59 Last Admin: 03/10/17 11:09 Dose: Not Given General: Other (intubated and sedated), no Alert HEENT: Atraumatic, PERRLA, Other (endotracheal tube noted .) Neck: Supple, +2 carotid pulse wo bruit Cardiovascular: Systolic murmurs, Other (irregularly irregular.) Lungs: Other (diffuse rhonchi throughout.) Abdomen: Bowel sounds, Soft, Obese, Other (multiple abd wounds, w/ wound vac.) Extremities: Other (ecchymosis, hematomas, petecchiae,debrided wound.), no Edema Neurological: Sensation intact, Other (stuporous) Skin: Rash, Breakdown (multiple blisters), Significant lesion (multiple bruises and ecchymosis, ischemic wounds.) Psych/Mental Status: Other (intubated and sedated) - Procedures Procedures: Procedures Procedure Code Date EXCISION OF ABD SUBCU/FASCIA, OPEN APPROACH [id number] 02/27/17 EXCISION OF R LOW LEG SUBCU/FASCIA, OPEN APPROACH [id number] 02/27/17 INSERT EMERGENCY AIRWAY [id number] 02/27/17 INSERTION OF ENDOTRACHEAL AIRWAY INTO TRACHEA, VIA OPENING [id number] 02/27/17 REMOVAL OF PRESSURE SORE 49800 02/27/17 RESPIRATORY VENTILATION, 24-96 CONSECUTIVE HOURS [id number] 02/27/17 VENT MGMT INPAT INIT DAY 05233 02/27/17 Assessment/Plan - Assessment Assessment: * DIC * DVT * RENAL FAILURE * MULTIPLE ABD WALL WOUNDS * RESPIRATORY FAILURE TX FFP x 2, plt MONITOR DIC PANEL KEEP OFF ANTICOAG Nutritional Asmnt/Malnutr-PDOC - Dietary Evaluation Malnutrition Findings (Please click <Entered> for more info): Nutritional Asmnt/Malnutrition Start: 02/28/17 14: 25 Text: Status: Complete Freq: Document 02/28/17 14:32 GSUN (Rec: 02/28/17 14:52 [email or web address] [id number]) Nutritional Asmnt/Malnutrition Patient General Information Nutritional Screening High Risk Screening Diagnosis Infectured multiple abdominal wound, sepsis, hypotension Pertinent Medical Hx/Surgical Hx DM, end stage renal failure, obesity, multiple abdominal wound, anemia Subjective Information 71 [address] consult for wounds/calciphylaxis. Pt was lethargic during visit, spoke to at bedside. Briefly explained renal diet, agreeable to plan, not suitble for extensive edu at this time. Pt appeared obese. Pt reported UBW 250lb measured 1 month ago, pt is unsure of dry weight at dialysis center. Pt reported has gradually lost weight 80lb over the past year due to poor appetite and hospitalizations. RD recommended oral supplements, pt denied, stating she has tried and threw up. Current Diet Order/ Nutrition Support Renal, 1800kcal Pertinent Medications Vitamin C, Vitamin D3, D5-0. 45ns, Pepcid, Novolog, Culturelle, Morphine, Zinc Sulfate Pertinent Labs 02/28: BUN 38H, creatinine 5H, phosphorus 5.4H Nutritional Hx/Data Height 1.63 m Height (Calculated Centimeters) 162.6 Current Weight (lbs) 113.398 kg Weight (Calculated Kilograms) 113.4 Weight (Calculated Grams) 325919.1 [place] Body Weight 120 Recent Weight Change Yes Weight Status Morbidly Obese GI Symptoms Skin Integrity/Comment: Bilateral lower extremities pitting 3+. Abdominal wounds/ calciphylaxis Estimated Nutritional Goals BEE in Kcals: Adj wt of IBW Calories/Kcals/Kg AdjBW 152.5lb/69.3kg (adjsuted to UBW) Kcals Calculated 2078-2425kcal (30-35kcal/kg) Protein: Adj wt of IBW Protein Calculated 90-104g (1.2-1.5/gkg) Fluid: ml 2078-2426ml (1ml/kcal) Nutritional Problem 3. Problem Problem Malnutrition related to Etiology unknown etiology, energy imbalance aeb Signs/Symptoms: BMI >40 2. Problem Problem Increased kcal and prot needs related to Etiology hypermetabolic state aeb Signs/Symptoms: on HD, sepsis 1. Problem Problem Impaired nutrient utilization related to Etiology end stage renal failure aeb Signs/Symptoms: on HD, BUN 38H, creatinine 5H, phosphorus 5.4H Malnutrition Related to Morbid Obesity Malnutrition related to morbid obesity BMI> or equal to 40 Query Text:(Any 1 Criteria met) Malnutrition related to morbid obesity Yes Intervention/Recommendation Comments 1. Recommend renal diet. Briefly explained renal diet, pt is agreeable to plan. Encourage PO intake. 2. Recommend removing " 1800kcal" restriction as pt is in hypermetabolic state ( sepsis, HD) and obese, requiring more than 1800kcal, weight loss not favorable at this time. 3. Pt reported poor appetite many months, RD recommend oral supplements, pt declined. Expected Outcomes/Goals Expected Outcomes/Goals 1. PO intake to meet at least 75% of estimated nutritional needs.
[2017-03-10] MEDS ORDERED: Sodium Phosphate 20 MMOLE in Sodium Chloride 0.9% 250 ML IV ONE (13:48)
[2017-03-10] MEDS ORDERED: Magnesium Sulfate 2 gm/50 mL Premix Bag IV ONE (16:00)
--- NOTE | 2017-03-10 16:21 | General Progress Note ---
Subjective - Review of Systems Subjective: Patient is seen and examined. Patient is sedated and intubated. The patient is currently on IV cardizem drip and levophed drip. Patient is spiking fever. Currently on propofol drip. Discussed with RN about treatment plan. Overall prognosis is very poor. I also discussed with patient's son and over the phone regarding multiorgan failure and extremely poor prognosis. All wound cultures came out positive with Acinetobacter and MDRO multiple organisms. Objective - Results Result Diagrams: 03/10/17 09:30 03/10/17 09:30 Recent Labs: Laboratory Last Values WBC 15.9 Th/cmm (4.8-10.8) H 03/10/17 09:30 RBC 2.49 Mil/cmm (3.80-5.20) L 03/10/17 09:30 Hgb 7.8 gm/dL (11.7-16.1) L* 03/10/17 09:30 Hct 22.7 % (35.0-45.0) L* 03/10/17 09:30 MCV 91.1 fl (81-100) 03/10/17 09:30 MCH 31.2 pg (27.0-31.0) H 03/10/17 09:30 MCHC Differential 34.2 pg (28.0-36.0) 03/10/17 09:30 RDW 15.1 % (11.5-20.0) 03/10/17 09:30 Plt Count 51 Th/cmm (150-400) L D 03/10/17 09:30 MPV 9.1 fl 03/10/17 09:30 Neutrophils % 82.3 % (40.0-80.0) H 03/04/17 05:20 Band Neutrophils % 3 % (0-10) 03/10/17 09:30 Lymphocytes % 11.2 % (20.0-50.0) L 03/04/17 05:20 Monocytes % 5.3 % (2.0-10.0) 03/04/17 05:20 Eosinophils % 1.1 % (0.0-5.0) 03/04/17 05:20 Basophils % 0.1 % (0.0-2.0) 03/04/17 05:20 Neutrophils (Manual) 64 % (40-80) 03/10/17 09:30 Lymphocytes 23 % (20-50) 03/10/17 09:30 Monocytes 2 % (2-10) 03/10/17 09:30 Eosinophils 8 % (0-5) H 03/10/17 09:30 Basophils 1 % (0-3) 03/01/17 12:26 Metamyelocytes 1 % (0-0) H 03/07/17 08:20 Myelocytes 1 % 03/07/17 08:20 Atypical Lymphocytes 1 % 03/07/17 08:20 Hypochromia 1+ 03/03/17 06:29 Platelet Estimate DECREASED PLATELETS (NORMAL) 03/10/17 09:30 Platelet Morphology NORMAL (NORMAL) 03/10/17 09:30 Polychromasia 1+ 03/03/17 06:29 Poikilocytosis 1+ 03/07/17 08:20 Anisocytosis 1+ 03/10/17 09:30 RBC Morph Micro Appear ABNORMAL (NORMAL) 03/10/17 09:30 Plt Count 51 Th/cmm (150-750) L 03/10/17 09:30 PT 16.2 SECONDS (9.5-11.5) H 03/10/17 09:30 INR 1.53 (0.5-1.4) H 03/10/17 09:30 PTT (Actin FS) 46.8 SECONDS (26.0-38.0) H 03/10/17 09:30 Fibrinogen 214.0 mg/dL (200.0-400.0) 03/10/17 09:30 D-Dimer 4310 ng/mL (100-400) H 03/10/17 09:30 Specimen Source Arterial 03/09/17 09:18 Sample Site Right Radial 03/09/17 09:18 pH 7.54 (7.35-7.45) H 03/09/17 09:18 pCO2 36.0 mmHg (35.0-45.0) 03/09/17 09:18 pO2 102.0 mmHg (80.0-100.0) H 03/09/17 09:18 HCO3 31.1 mEq/L (20.0-26.0) H 03/09/17 09:18 Base Excess 7.9 mEq/L (-3.0-3.0) H 03/09/17 09:18 O2 Saturation 99.0 % (92.0-100.0) 03/09/17 09:18 Chaz Test YES 03/09/17 09:18 Vent Rate 12 03/09/17 09:18 Inspired O2 50 03/09/17 09:18 Tidal Volume 500 03/09/17 09:18 PEEP NA 03/09/17 09:18 Pressure (ins/psv/peep) NA 03/09/17 09:18 Critical Value E.NUNN 03/09/17 09:18 Sodium 131 mEq/L (136-145) L 03/10/17 09:30 Potassium 3.6 mEq/L (3.5-5.1) 03/10/17 09:30 Chloride 98 mEq/L (98-107) 03/10/17 09:30 Carbon Dioxide 26.0 mEq/L (21.0-31.0) 03/10/17 09:30 Anion Gap 10.6 (7.0-16.0) 03/10/17 09:30 BUN 36 mg/dL (7-25) H 03/10/17 09:30 Creatinine 2.7 mg/dL (0.6-1.2) H 03/10/17 09:30 Est GFR ( Amer) 22.5 ml/min (>90) 03/10/17 09:30 Est GFR (Non-Af Amer) 18.6 ml/min 03/10/17 09:30 BUN/Creatinine Ratio 13.3 03/10/17 09:30 Glucose 104 mg/dL (70-105) 03/10/17 09:30 POC Glucose 139 MG/DL (70 - 105) H 03/10/17 11:35 Hemoglobin A1c % 4.6 % (4.0-6.0) 02/27/17 19:30 Whole Bld Lactic Acid 3.33 mmol/L (0.60-1.99) H* 03/07/17 10:48 Calcium 7.8 mg/dL (8.6-10.3) L 03/10/17 09:30 Phosphorus 1.8 mg/dL (2.5-5.0) L 03/10/17 09:30 Magnesium 1.7 mg/dL (1.9-2.7) L 03/10/17 09:30 Total Bilirubin 6.2 mg/dL (0.3-1.0) H 03/10/17 09:30 Direct Bilirubin 3.53 mg/dL (0.0-0.2) H 03/09/17 05:30 AST 57 U/L (13-39) H 03/10/17 09:30 ALT 12 U/L (7-52) 03/10/17 09:30 Alkaline Phosphatase 166 U/L (34-104) H 03/10/17 09:30 Ammonia 186 umol/L (16-53) H 03/08/17 04:52 Troponin I 0.05 ng/mL (0.01-0.05) 03/07/17 08:20 C-Reactive Protein 16.9 mg/dL (0.0-0.9) H 03/10/17 09:30 Total Protein 4.8 gm/dL (6.0-8.3) L 03/10/17 09:30 Albumin 1.9 gm/dL (3.7-5.3) L 03/10/17 09:30 Globulin 2.9 gm/dL 03/10/17 09:30 Albumin/Globulin Ratio 0.7 (1.0-1.8) L 03/10/17 09:30 Prealbumin <3 mg/dL (10-36) L 03/05/17 07:45 Triglycerides 112 mg/dL (<150) 03/03/17 06:29 Cholesterol < 25 mg/dL (<200) 03/05/17 07:45 TSH 4.18 uIU/ml (0.34-5.60) 03/08/17 04:52 PTH Intact 43 pg/mL (15-65) 03/08/17 04:52 Random Amikacin 18.7 ug/ml (1.0-30.0) 03/08/17 13:19 Gentamicin Peak 8.8 ug/ml (4.0-8.0) 03/01/17 10:00 Gentamicin Trough ug/ml (0.2-2.0) 03/01/17 08:30 Serum Ketones NEGATIVE (NEGATIVE) 02/27/17 19:30 Hepatitis A IgM Ab Negative (Negative) 03/02/17 05:36 Hep Bs Antigen Negative (Negative) 03/02/17 05:36 Hep B Core IgM Ab Negative (Negative) 03/02/17 05:36 Hepatitis C Antibody <0.1 s/co ratio (0.0-0.9) 03/02/17 05:36 Blood Type A POSITIVE 03/08/17 04:52 Antibody Screen NEGATIVE 03/08/17 04:52 Crossmatch See Detail 03/06/17 10:42 - Physical Exam Vitals and I&O: Vital Signs Temp 98.8 F 03/10/17 14:00 Pulse 122 03/10/17 15:13 Resp 28 03/10/17 15:00 BP 111/44 03/10/17 15:00 Pulse Ox 96 03/10/17 15:13 Intake & Output 03/09/17 03/10/17 03/10/17 18:59 06:59 18:59 Intake Total 607.327 831.817 882.303 Balance 607.327 831.817 882.303 Intake: Intake, IV Amount 607.327 831.817 882.303 Diltiazem 125 mg In 22.517 125 Dextrose 5% 100 ml @ 10 MG/HR 10 mls/hr IV TITR [facility] Rx#:[id number] Levetiracetam 1000mg/ 100 100 100mL 1,000 mg In 100 ml @ 400 mls/hr IV Q12H [facility] Rx#:[id number] Meropenem 500 mg In 100 Sodium Chloride 0.9% 100 ml @ 100 mls/hr IV Q24H [facility] Rx#:[id number] Norepinephrine 4 mg In 384.81 402.463 474.472 Dextrose 5% 250 ml @ 37.5 MCG/MIN 142.87 mls/hr IV TITR PRN Rx#:[id number] Norepinephrine 8 mg In 9.19 Dextrose 5% 250 ml @ 15 MCG/MIN 29.02 mls/hr IV TITR PRN Rx#:[id number] Propofol 1,000 mg In 100 119.354 73.641 ml @ 10 MCG/KG/MIN 8.11 mls/hr IV TITR [facility] Rx#: [id number] Tigecycline 50 mg In 100 100 100 Sodium Chloride 0.9% 100 ml @ 100 mls/hr IV Q12H [facility] Rx#:[id number] Valproate Sodium 1,000 mg 110 In Sodium Chloride 0.9% 100 ml @ 100 mls/hr IV Q12H [facility] Rx#:[id number] Active Medications: Current Medications Acetaminophen (Tylenol 650mg Supp) 650 mg RC Q6H PRN PRN Reason: fever Stop: 05/09/17 16:11 Acetaminophen/Hydrocodone Bitart (Mcgrady 10 Mg/325 Mg) 1 tab PO Q6H PRN PRN Reason: Pain (Moderate) Stop: 05/04/17 09:27 Albuterol Sulfate (Albuterol 2.5mg/3ml Neb Ud) 2.5 mg HHN Q2H PRN PRN Reason: Shortness of Breath Stop: 04/29/17 03:59 Last Admin: 03/09/17 14:12 Dose: 2.5 mg Albuterol/Ipratropium (Duoneb Neb) 3 ml HHN Q4HRT [facility] Stop: 05/04/17 22:59 Last Admin: 03/10/17 15:13 Dose: 3 ml Ascorbic Acid (Vitamin C) 500 mg PO DAILY [facility] Stop: 04/29/17 08:59 Last Admin: 03/10/17 08:56 Dose: Not Given Budesonide (Pulmicort) 0.25 mg HHN BIDRT [facility] Stop: 05/05/17 06:59 Last Admin: 03/10/17 07:19 Dose: 0.25 mg Chlorhexidine Gluconate (Peridex) 15 ml MM 0800,1999 [facility] Stop: 05/05/17 19:59 Last Admin: 03/10/17 11:07 Dose: 15 ml Cholecalciferol (Vitamin D3) 2,000 iu PO DAILY [facility] Stop: 04/29/17 08:59 Last Admin: 03/10/17 11:07 Dose: Not Given Diphenhydramine HCl (Benadryl) 25 mg PO Q6H PRN PRN Reason: Itching Stop: 04/29/17 03:39 Escitalopram Oxalate (Lexapro) 10 mg PO DAILY [facility] PRN Reason: Protocol Stop: 04/29/17 08:59 Last Admin: 03/10/17 11:07 Dose: Not Given Famotidine (Pepcid) 20 mg IVP DAILY [facility] Stop: 05/01/17 08:59 Last Admin: 03/10/17 09:06 Dose: 20 mg Fludrocortisone Acetate (Florinef) 0.1 mg PO BID [facility] Stop: 04/29/17 08:59 Last Admin: 03/10/17 08:56 Dose: Not Given Diltiazem HCl 125 mg/ Dextrose 125 mls @ 10 mls/hr IV TITR [facility]; 10 MG/HR PRN Reason: Protocol Stop: 04/29/17 04:14 Last Admin: 03/10/17 13:20 Dose: 5 mg/hr, 5 mls/hr Tigecycline 50 mg/ Sodium (Chloride) 100 mls @ 100 mls/hr IV Q12H [facility] Stop: 04/30/17 11:29 Last Infusion: 03/10/17 13:05 Dose: Infused Multivitamins/Minerals 10 ml/Amino Acids/Electrolytes/ Fat Emulsion Intravenous / Dextrose 1,440 mls @ 60 mls/hr IV .Q24H [facility] Stop: 05/02/17 15:59 Last Infusion: 03/09/17 06:17 Dose: 60 mls/hr Amikacin Sulfate 300 mg/ (Dextrose) 101.2 mls @ 100 mls/hr IV PRN PRN PRN Reason: After ea. HD on MWF Stop: 05/05/17 14:59 Meropenem 500 mg/ Sodium (Chloride) 100 mls @ 100 mls/hr IV Q24H [facility] Stop: 05/05/17 08:59 Last Infusion: 03/10/17 10:20 Dose: Infused Levetiracetam (Keppra Pb) 1,000 mg in 100 mls @ 400 mls/hr IV Q12H [facility] Stop: 05/08/17 13:29 Last Admin: 03/10/17 14:00 Dose: 400 mls/hr Valproate Sodium 1,000 mg/ (Sodium Chloride) 110 mls @ 100 mls/hr IV Q12H [facility] Stop: 05/08/17 16:59 Last Infusion: 03/10/17 05:20 Dose: Infused Propofol (Diprivan) 1,000 mg in 100 mls @ 8.11 mls/hr IV TITR [facility]; 10 MCG/KG/ MIN PRN Reason: Protocol Stop: 05/08/17 16:51 Last Titration: 03/10/17 14:28 Dose: 20 mcg/kg/min, 16.221 mls/hr Norepinephrine Bitartrate 8 mg (/ Dextrose) 258 mls @ 29.02 mls/hr IV TITR PRN ; Protocol; 15 MCG/MIN PRN Reason: BP MAINTENANCE (PER PROTOCOL) Stop: 05/09/17 13:06 Last Titration: 03/10/17 15:43 Dose: 20 mcg/min, 38.7 mls/hr Magnesium Sulfate (Magnesium Sulfate Premix) 2 gm in 50 mls @ 25 mls/hr IV X1 ONE Stop: 03/10/17 17:59 Last Admin: 03/10/17 15:45 Dose: 25 mls/hr Insulin Aspart (Novolog Insulin Sliding Scale) 0 units SUBQ Q6HR [facility] PRN Reason: Protocol Stop: 05/03/17 00:00 Last Admin: 03/10/17 11:56 Dose: Not Given Lactobacillus Rhamnosus (Culturelle) 1 each PO DAILY [facility] Stop: 05/01/17 08:59 Last Admin: 03/10/17 11:08 Dose: Not Given Lorazepam (Ativan) 2 mg IVP Q4HR PRN; Protocol PRN Reason: Anxiety Stop: 05/04/17 20:17 Last Admin: 03/09/17 08:45 Dose: 2 mg Lorazepam (Ativan) 4 mg IVP PRN PRN; Protocol PRN Reason: SEIZURE Stop: 05/08/17 13:42 Last Admin: 03/09/17 15:42 Dose: 4 mg Metoprolol Tartrate (Lopressor) 50 mg PO Q12HR [facility] Stop: 04/29/17 08:59 Last Admin: 03/10/17 09:08 Dose: Not Given Miscellaneous (Clinical Monitoring) 1 ea [facility] DAILY PRN PRN Reason: RENAL Stop: 04/29/17 10:50 Miscellaneous (Vte Chemical Prophylaxis Screen/ Admission) 1 ea MC PRN PRN PRN Reason: PROTOCOL Stop: 04/29/17 15:40 Miscellaneous (Probiotic Screen) 1 ea MC PRN PRN PRN Reason: PROTOCOL Stop: 04/30/17 10:56 Miscellaneous (Tpn Per Pharmacy) 1 ea MC PRN PRN PRN Reason: PROTOCOL Stop: 04/30/17 18:13 Zinc Sulfate (Zinc Sulfate) 220 mg PO DAILY [facility] Stop: 04/29/17 08:59 Last Admin: 03/10/17 11:09 Dose: Not Given General: Other (intubated and sedated), no Alert HEENT: Atraumatic, PERRLA, Other (endotracheal tube noted .) Neck: Supple, +2 carotid pulse wo bruit Cardiovascular: Systolic murmurs, Other (irregularly irregular.) Lungs: Other (diffuse rhonchi throughout.) Abdomen: Bowel sounds, Soft, Obese, Other (multiple abd wounds, w/ wound vac.) Extremities: Other (ecchymosis, hematomas, petecchiae,debrided wound.), no Edema Neurological: Sensation intact, Other (unable to assess.) Skin: Rash, Breakdown (multiple blisters), Significant lesion (multiple bruises and ecchymosis, ischemic wounds.) Psych/Mental Status: Other (intubated and sedated) - Procedures Procedures: Procedures Procedure Code Date EXCISION OF ABD SUBCU/FASCIA, OPEN APPROACH [id number] 02/27/17 EXCISION OF R LOW LEG SUBCU/FASCIA, OPEN APPROACH [id number] 02/27/17 INSERT EMERGENCY AIRWAY [id number] 02/27/17 INSERTION OF ENDOTRACHEAL AIRWAY INTO TRACHEA, VIA OPENING [id number] 02/27/17 REMOVAL OF PRESSURE SORE [id number] 02/27/17 RESPIRATORY VENTILATION, 24-96 CONSECUTIVE HOURS [id number] 02/27/17 VENT MGMT INPAT INIT DAY [id number] 02/27/17 Assessment/Plan - Assessment Assessment: Septic shock. Multiple infected wounds on abdomen and extremities status post debridement with wound VAC. End-stage renal disease on hemodialysis. Hypertension. Most Likely seizure. Acute respiratory failure requiring endotracheal intubation and mechanical ventilation. Coronary artery disease. ARDS. 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 Anemia of chronic kidney disease and anemia of inflammation. Chronic atrial fibrillation. DIC positive. History of DVT and jugular venous thrombosis. Heparin induced thrombocytopenia history. Diffuse DJD. Bed confined. Guarded prognosis. - Plan Plan: ICU status. Vent support. HHN. Neuro follow-up. CT scan of head once patient is stable. Guarded prognosis. Pulmo consult and follow up. IV antibiotics as per ID. Hemodialysis as schedule. Wound care as per surgery. Cardiac monitoring. Symptoms management. Medication management. Hematology consultation and follow up. Cardiology consultation and follow-up General nursing care ID follow-up and follow the recommendations Follow labs. Follow-up consultants recommendations. Prognosis guarded. ICU care. Chronic management of her chronic illnesses. Care plan reviewed and discussed with RN. Nutritional Asmnt/Malnutr-PDOC - Dietary Evaluation Malnutrition Findings (Please click <Entered> for more info): Nutritional Asmnt/Malnutrition Start: 02/28/17 14: 25 Text: Status: Complete Freq: Document 02/28/17 14:32 GSUN (Rec: 02/28/17 14:52 [email or web address] [id number]) Nutritional Asmnt/Malnutrition Patient General Information Nutritional Screening High Risk Screening Diagnosis Infectured multiple abdominal wound, sepsis, hypotension Pertinent Medical Hx/Surgical Hx DM, end stage renal failure, obesity, multiple abdominal wound, anemia Subjective Information 71 [address] consult for wounds/calciphylaxis. Pt was lethargic during visit, spoke to at bedside. Briefly explained renal diet, agreeable to plan, not suitble for extensive edu at this time. Pt appeared obese. Pt reported UBW 250lb measured 1 month ago, pt is unsure of dry weight at dialysis center. Pt reported has gradually lost weight 80lb over the past year due to poor appetite and hospitalizations. RD recommended oral supplements, pt denied, stating she has tried and threw up. Current Diet Order/ Nutrition Support Renal, 1800kcal Pertinent Medications Vitamin C, Vitamin D3, D5-0. 45ns, Pepcid, Novolog, Culturelle, Morphine, Zinc Sulfate Pertinent Labs /: BUN 38H, creatinine 5H, phosphorus 5.4H Nutritional Hx/Data Height 1.63 m Height (Calculated Centimeters) 162.6 Current Weight (lbs) 113.398 kg Weight (Calculated Kilograms) 113.4 Weight (Calculated Grams) 712325.1 [place] Body Weight 120 Recent Weight Change Yes Weight Status Morbidly Obese GI Symptoms Skin Integrity/Comment: Bilateral lower extremities pitting 3+. Abdominal wounds/ calciphylaxis Estimated Nutritional Goals BEE in Kcals: Adj wt of IBW Calories/Kcals/Kg AdjBW 152.5lb/69.3kg (adjsuted to UBW) Kcals Calculated 2079-2426kcal (30-35kcal/kg) Protein: Adj wt of IBW Protein Calculated 90-104g (1.2-1.5/gkg) Fluid: ml 2079-2426ml (1ml/kcal) Nutritional Problem 3. Problem Problem Malnutrition related to Etiology unknown etiology, energy imbalance aeb Signs/Symptoms: BMI >40 2. Problem Problem Increased kcal and prot needs related to Etiology hypermetabolic state aeb Signs/Symptoms: on HD, sepsis 1. Problem Problem Impaired nutrient utilization related to Etiology end stage renal failure aeb Signs/Symptoms: on HD, BUN 38H, creatinine 5H, phosphorus 5.4H Malnutrition Related to Morbid Obesity Malnutrition related to morbid obesity BMI> or equal to 40 Query Text:(Any 1 Criteria met) Malnutrition related to morbid obesity Yes Intervention/Recommendation Comments 1. Recommend renal diet. Briefly explained renal diet, pt is agreeable to plan. Encourage PO intake. 2. Recommend removing " 1800kcal" restriction as pt is in hypermetabolic state ( sepsis, HD) and obese, requiring more than 1800kcal, weight loss not favorable at this time. 3. Pt reported poor appetite many months, RD recommend oral supplements, pt declined. Expected Outcomes/Goals Expected Outcomes/Goals 1. PO intake to meet at least 75% of estimated nutritional needs.
[2017-03-10] MEDS: INTRALIPIDS IV SCH (16:32)
[2017-03-10] MEDS: [UNRECOGNIZED DRUG - OTHER] IV SCH (16:32)
[2017-03-10] MEDS: MULTIVITAMIN IV SCH (16:32)
[2017-03-10] MEDS: ELECTROLYTES IV SCH (16:32)
[2017-03-10] MEDS: AMINO ACIDS IV SCH (16:32)
--- NOTE | 2017-03-10 19:17 | Progress Notes ---
DATE: 03/10/2017 PULMONARY PROGRESS NOTE PROBLEM LIST: 1. Acute respiratory failure. 2. Bilateral interstitial pneumonia/fluid overload. 3. Obstructive sleep apnea syndrome. 4. Abdominal sepsis status post surgery. SYMPTOMS: The patient is sedated, tachypneic, no respiratory distress, etc., currently on a propofol with TPN. PHYSICAL EXAMINATION: VITAL SIGNS: Temperature is 99, heart rate 110-113. NECK: Veins not visualized. CHEST: Shows diminished air entry with occasional rhonchi. HEART: Regular. ABDOMEN: Soft and nontender with multiple areas of wound VAC. LABORATORY DATA: The patient's white count is 15.9, hemoglobin 7.8, and INR is 1.53. Electrolytes are okay with BUN of 36, creatinine of 2.7, and the patient's albumin is 1.9. ASSESSMENT: The patient is clinically status quo, not much changes, abdominal sepsis with septicemia with respiratory failure with multiple other metabolic issues including renal failure with other previous history of colonic surgery. PLANS AND SUGGESTIONS: We will continue current treatment. We will discuss with GI, possibly ____ to the NG tube. Hopefully, if the pain is slight better, hemodynamically may attempt to ____ after propofol is stopped and go from there. JOB# [id number]
[2017-03-11] MEDS ORDERED: Diltiazem 5 mg/mL 25mL Vial IV ONE (01:58)
[2017-03-11] MEDS: Albuterol/Ipratropium Neb 3 ML AERS HHN SCH ×6 (03:06→22:50)
[2017-03-11] MEDS: INSULIN ASPART SLIDING SCALE 100 UNITS/ML UNIT SUBQ SCH ×5 (06:00→23:57)
[2017-03-11] MEDS: Valproate Sodium 1,000 MG in Sodium Chloride 0.9% 100 ML IV SCH ×2 (06:08→17:45)
[2017-03-11] MEDS: Levetiracetam 1000mg/100mL 1,000 MG/100 ML BAG IV SCH ×2 (06:15→12:58)
[2017-03-11 07:12] LABS: MEAN CELL VOLUME 90.5 fl (81-100); MEAN CORPUSCULAR HEMOGLOBIN 31.8 pg (27.0-31.0); MEAN CORPUSCULAR HGB CONC 35.1 pg (28.0-36.0); MEAN PLATELET VOLUME 9.6 fl; PLATELET COUNT 48 Th/cmm (150-400); RED BLOOD COUNT 2.38 Mil/cmm (3.80-5.20); RED CELL DISTRIBUTION WIDTH 14.9 % (11.5-20.0)
[2017-03-11] MEDS: Budesonide 0.5 Mg/2 mL Ud HHN SCH ×2 (07:18→19:21)
[2017-03-11 07:50] LABS: HEMATOCRIT 21.5 % (35.0-45.0); HEMOGLOBIN 7.6 gm/dL (11.7-16.1); WHITE BLOOD COUNT 16.8 Th/cmm (4.8-10.8)
[2017-03-11] MEDS: Lactobacillus Rhamnosus 10 Billion CFU Capsule PO SCH (08:03)
[2017-03-11 08:12] LABS: ANION GAP 13.5 (7.0-16.0); BUN/CREATININE RATIO 16.3; CALCIUM SERUM 7.8 mg/dL (8.6-10.3); CARBON DIOXIDE 22.7 mEq/L (21.0-31.0); PHOSPHOROUS 2.7 mg/dL (2.5-5.0); POTASSIUM SERUM 4.2 mEq/L (3.5-5.1)
[2017-03-11 08:14] LABS: ALB/GLOB RATIO 0.7 (1.0-1.8); BILIRUBIN,TOTAL 6.4 mg/dL (0.3-1.0); BUN/CREATININE RATIO 15.8; CALCIUM SERUM 7.8 mg/dL (8.6-10.3); CARBON DIOXIDE 22.2 mEq/L (21.0-31.0); CREATININE - SERUM 3.1 mg/dL (0.6-1.2); POTASSIUM SERUM 4.2 mEq/L (3.5-5.1)
[2017-03-11] MEDS: Venelex 60gm Tube TP SCH (08:18)
[2017-03-11] MEDS: Chlorhexidine Gluconate 0.12% 15mL Mouthwash MM SCH ×2 (08:18→20:00)
[2017-03-11 08:28] LABS: INR 1.57 (0.5-1.4); PROTHROMBIN TIME (TEST) 16.7 SECONDS (9.5-11.5)
[2017-03-11 08:49] LABS: ABG SOURCE Arterial; BE(B) 2.1 mEq/L (-3.0-3.0); HCO3 26.5 mEq/L (20.0-26.0); pH 7.48 (7.35-7.45)
[2017-03-11 08:50] LABS: ALLEN TEST YES; CRITICAL VALUES REPORTED BY SH; FIO2 50; MECH RATE 12; MECH VT 500
[2017-03-11] MEDS: Meropenem 500 MG in Sodium Chloride 0.9% 100 ML IV SCH (09:36)
--- NOTE | 2017-03-11 10:16 | Diagnostic Imaging Report ---
CHEST X-RAY: AP view INDICATION: Shortness of breath COMPARISON: Chest x-ray 03/09/2017 FINDINGS: ET tube is seen with tip 2.8 cm above the Dory. Right dialysis catheter and right PICC line are stable. Her sister CHF is seen with diffuse bilateral infiltrates and left effusion. Cardiomegaly is noted. IMPRESSION: Persistent CHF with diffuse bilateral infiltrates and left effusion. Cardiomegaly.
--- NOTE | 2017-03-11 10:35 | General Progress Note ---
Subjective - Review of Systems Service Date: 03/11/17 Subjective: unresponsive Objective - Results Result Diagrams: 03/11/17 06:53 03/11/17 06:53 Recent Labs: Laboratory Last Values WBC 16.8 Th/cmm (4.8-10.8) H 03/11/17 06:53 RBC 2.38 Mil/cmm (3.80-5.20) L 03/11/17 06:53 Hgb 7.6 gm/dL (11.7-16.1) L* 03/11/17 06:53 Hct 21.5 % (35.0-45.0) L* 03/11/17 06:53 MCV 90.5 fl (81-100) 03/11/17 06:53 MCH 31.8 pg (27.0-31.0) H 03/11/17 06:53 MCHC Differential 35.1 pg (28.0-36.0) 03/11/17 06:53 RDW 14.9 % (11.5-20.0) 03/11/17 06:53 Plt Count 48 Th/cmm (150-400) L 03/11/17 06:53 MPV 9.6 fl 03/11/17 06:53 Neutrophils % 82.3 % (40.0-80.0) H 03/04/17 05:20 Band Neutrophils % 3 % (0-10) 03/10/17 09:30 Lymphocytes % 11.2 % (20.0-50.0) L 03/04/17 05:20 Monocytes % 5.3 % (2.0-10.0) 03/04/17 05:20 Eosinophils % 1.1 % (0.0-5.0) 03/04/17 05:20 Basophils % 0.1 % (0.0-2.0) 03/04/17 05:20 Neutrophils (Manual) 64 % (40-80) 03/10/17 09:30 Lymphocytes 23 % (20-50) 03/10/17 09:30 Monocytes 2 % (2-10) 03/10/17 09:30 Eosinophils 8 % (0-5) H 03/10/17 09:30 Basophils 1 % (0-3) 03/01/17 12:26 Metamyelocytes 1 % (0-0) H 03/07/17 08:20 Myelocytes 1 % 03/07/17 08:20 Atypical Lymphocytes 1 % 03/07/17 08:20 Hypochromia 1+ 03/03/17 06:29 Platelet Estimate DECREASED PLATELETS (NORMAL) 03/10/17 09:30 Platelet Morphology NORMAL (NORMAL) 03/10/17 09:30 Polychromasia 1+ 03/03/17 06:29 Poikilocytosis 1+ 03/07/17 08:20 Anisocytosis 1+ 03/10/17 09:30 RBC Morph Micro Appear ABNORMAL (NORMAL) 03/10/17 09:30 Plt Count 48 Th/cmm (150-750) L 03/11/17 06:53 PT 16.7 SECONDS (9.5-11.5) H 03/11/17 06:53 INR 1.57 (0.5-1.4) H 03/11/17 06:53 PTT (Actin FS) 43.9 SECONDS (26.0-38.0) H 03/11/17 06:53 Fibrinogen 206.0 mg/dL (200.0-400.0) 03/11/17 06:53 D-Dimer 4120 ng/mL (100-400) H 03/11/17 06:53 Specimen Source Arterial 03/11/17 08:30 Sample Site Left Radial 03/11/17 08:30 pH 7.48 (7.35-7.45) H 03/11/17 08:30 pCO2 34.0 mmHg (35.0-45.0) L 03/11/17 08:30 pO2 63.0 mmHg (80.0-100.0) L 03/11/17 08:30 HCO3 26.5 mEq/L (20.0-26.0) H 03/11/17 08:30 Base Excess 2.1 mEq/L (-3.0-3.0) 03/11/17 08:30 O2 Saturation 93.0 % (92.0-100.0) 03/11/17 08:30 Chaz Test YES 03/11/17 08:30 Vent Rate 12 03/11/17 08:30 Inspired O2 50 03/11/17 08:30 Tidal Volume 500 03/11/17 08:30 PEEP NA 03/11/17 08:30 Pressure (ins/psv/peep) NA 03/11/17 08:30 Critical Value SH 03/11/17 08:30 Sodium 133 mEq/L (136-145) L 03/11/17 06:53 Potassium 4.2 mEq/L (3.5-5.1) 03/11/17 06:53 Chloride 101 mEq/L (98-107) 03/11/17 06:53 Carbon Dioxide 22.2 mEq/L (21.0-31.0) 03/11/17 06:53 Anion Gap 14.0 (7.0-16.0) 03/11/17 06:53 BUN 49 mg/dL (7-25) H 03/11/17 06:53 Creatinine 3.1 mg/dL (0.6-1.2) H 03/11/17 06:53 Est GFR ( Amer) 19.2 ml/min (>90) 03/11/17 06:53 Est GFR (Non-Af Amer) 15.8 ml/min 03/11/17 06:53 BUN/Creatinine Ratio 15.8 03/11/17 06:53 Glucose 117 mg/dL (70-105) H 03/11/17 06:53 POC Glucose 139 MG/DL (70 - 105) H 03/10/17 11:35 Hemoglobin A1c % 4.6 % (4.0-6.0) 02/27/17 19:30 Whole Bld Lactic Acid 3.33 mmol/L (0.60-1.99) H* 03/07/17 10:48 Calcium 7.8 mg/dL (8.6-10.3) L 03/11/17 06:53 Phosphorus 2.7 mg/dL (2.5-5.0) 03/11/17 06:53 Magnesium 2.0 mg/dL (1.9-2.7) 03/11/17 06:53 Total Bilirubin 6.4 mg/dL (0.3-1.0) H 03/11/17 06:53 Direct Bilirubin 3.53 mg/dL (0.0-0.2) H 03/09/17 05:30 AST 55 U/L (13-39) H 03/11/17 06:53 ALT 13 U/L (7-52) 03/11/17 06:53 Alkaline Phosphatase 163 U/L (34-104) H 03/11/17 06:53 Ammonia 223 umol/L (16-53) H 03/11/17 06:53 Troponin I 0.05 ng/mL (0.01-0.05) 03/07/17 08:20 C-Reactive Protein 16.9 mg/dL (0.0-0.9) H 03/10/17 09:30 Total Protein 4.9 gm/dL (6.0-8.3) L 03/11/17 06:53 Albumin 2.0 gm/dL (3.7-5.3) L 03/11/17 06:53 Globulin 2.9 gm/dL 03/11/17 06:53 Albumin/Globulin Ratio 0.7 (1.0-1.8) L 03/11/17 06:53 Prealbumin 4 mg/dL (10-36) L 03/10/17 09:30 Triglycerides 112 mg/dL (<150) 03/03/17 06:29 Cholesterol < 25 mg/dL (<200) 03/05/17 07:45 TSH 4.18 uIU/ml (0.34-5.60) 03/08/17 04:52 PTH Intact 43 pg/mL (15-65) 03/08/17 04:52 Random Amikacin 18.7 ug/ml (1.0-30.0) 03/08/17 13:19 Gentamicin Peak 8.8 ug/ml (4.0-8.0) 03/01/17 10:00 Gentamicin Trough ug/ml (0.2-2.0) 03/01/17 08:30 Serum Ketones NEGATIVE (NEGATIVE) 02/27/17 19:30 Hepatitis A IgM Ab Negative (Negative) 03/02/17 05:36 Hep Bs Antigen Negative (Negative) 03/02/17 05:36 Hep B Core IgM Ab Negative (Negative) 03/02/17 05:36 Hepatitis C Antibody <0.1 s/co ratio (0.0-0.9) 03/02/17 05:36 Blood Type A POSITIVE 03/08/17 04:52 Antibody Screen NEGATIVE 03/08/17 04:52 Crossmatch See Detail 03/06/17 10:42 - Physical Exam Vitals and I&O: Vital Signs Temp 99.4 F 03/11/17 09:00 Pulse 103 03/11/17 10:15 Resp 24 03/11/17 10:00 BP 97/38 03/11/17 10:15 Pulse Ox 96 03/11/17 10:00 Intake & Output 03/10/17 03/11/17 03/11/17 18:59 06:59 18:59 Intake Total 2600.702 2533.227 Output Total 285 Balance 2600.702 2248.227 Weight (lbs) 63.957 kg Intake: Intake, IV Amount 2600.702 413.227 Diltiazem 125 mg In 125 64.417 Dextrose 5% 100 ml @ 10 MG/HR 10 mls/hr IV TITR [facility] Rx#:[id number] Levetiracetam 1000mg/ 100 100mL 1,000 mg In 100 ml @ 400 mls/hr IV Q12H [facility] Rx#:[id number] Meropenem 500 mg In 100 Sodium Chloride 0.9% 100 ml @ 100 mls/hr IV Q24H [facility] Rx#:[id number] Multivitamin Inj 10 ml In 1440 Amino Acids 3% / Electrolytes 700 ml In Intralipids 20% 50 ml In Dextrose 10% 680 ml @ 60 mls/hr IV .Q24H [facility] Rx#: [id number] Norepinephrine 4 mg In 474.472 Dextrose 5% 250 ml @ 37.5 MCG/MIN 142.87 mls/hr IV TITR PRN Rx#:[id number] Norepinephrine 8 mg In 9.19 248.81 Dextrose 5% 250 ml @ 15 MCG/MIN 29.02 mls/hr IV TITR PRN Rx#:[id number] Propofol 1,000 mg In 100 142.040 100 ml @ 10 MCG/KG/MIN 8.11 mls/hr IV TITR [facility] Rx#: [id number] Tigecycline 50 mg In 100 Sodium Chloride 0.9% 100 ml @ 100 mls/hr IV Q12H [facility] Rx#:[id number] Valproate Sodium 1,000 mg 110 In Sodium Chloride 0.9% 100 ml @ 100 mls/hr IV Q12H [facility] Rx#:[id number] TPN/PPN 1400 Blood Product 600 Lipid 120 Output: Drainage 285 Left Lower Abdomen 145 Right Lower Abdomen 140 Active Medications: Current Medications Acetaminophen (Tylenol 650mg Supp) 650 mg RC Q6H PRN PRN Reason: fever Stop: 05/09/17 16:11 Last Admin: 03/10/17 16:49 Dose: 650 mg Acetaminophen/Hydrocodone Bitart ([place] 10 Mg/325 Mg) 1 tab PO Q6H PRN PRN Reason: Pain (Moderate) Stop: 05/04/17 09:27 Albuterol Sulfate (Albuterol 2.5mg/3ml Neb Ud) 2.5 mg HHN Q2H PRN PRN Reason: Shortness of Breath Stop: 04/29/17 03:59 Last Admin: 03/09/17 14:12 Dose: 2.5 mg Albuterol/Ipratropium (Duoneb Neb) 3 ml HHN Q4HRT [facility] Stop: 05/04/17 22:59 Last Admin: 03/11/17 07:18 Dose: 3 ml Ascorbic Acid (Vitamin C) 500 mg PO DAILY [facility] Stop: 04/29/17 08:59 Last Admin: 03/11/17 08:00 Dose: Not Given Budesonide (Pulmicort) 0.25 mg HHN BIDRT [facility] Stop: 05/05/17 06:59 Last Admin: 03/11/17 07:18 Dose: 0.25 mg Chlorhexidine Gluconate (Peridex) 15 ml MM 0800,2000 [facility] Stop: 05/05/17 19:59 Last Admin: 03/11/17 08:18 Dose: 15 ml Cholecalciferol (Vitamin D3) 2,000 iu PO DAILY [facility] Stop: 04/29/17 08:59 Last Admin: 03/11/17 08:02 Dose: Not Given Diphenhydramine HCl (Benadryl) 25 mg PO Q6H PRN PRN Reason: Itching Stop: 04/29/17 03:39 Escitalopram Oxalate (Lexapro) 10 mg PO DAILY [facility] PRN Reason: Protocol Stop: 04/29/17 08:59 Last Admin: 03/11/17 08:03 Dose: Not Given Famotidine (Pepcid) 20 mg IVP DAILY [facility] Stop: 05/01/17 08:59 Last Admin: 03/11/17 08:17 Dose: 20 mg Fludrocortisone Acetate (Florinef) 0.1 mg PO BID [facility] Stop: 04/29/17 08:59 Last Admin: 03/11/17 08:00 Dose: Not Given Diltiazem HCl 125 mg/ Dextrose 125 mls @ 10 mls/hr IV TITR [facility]; 10 MG/HR PRN Reason: Protocol Stop: 04/29/17 04:14 Last Admin: 03/11/17 02:13 Dose: 5 mg/hr, 5 mls/hr Tigecycline 50 mg/ Sodium (Chloride) 100 mls @ 100 mls/hr IV Q12H [facility] Stop: 04/30/17 11:29 Last Infusion: 03/10/17 13:05 Dose: Infused Multivitamins/Minerals 10 ml/Amino Acids/Electrolytes/ Fat Emulsion Intravenous / Dextrose 1,440 mls @ 60 mls/hr IV .Q24H [facility] Stop: 05/02/17 15:59 Last Admin: 03/10/17 16:32 Dose: 60 mls/hr Amikacin Sulfate 300 mg/ (Dextrose) 101.2 mls @ 100 mls/hr IV PRN PRN PRN Reason: After ea. HD on MWF Stop: 05/05/17 14:59 Meropenem 500 mg/ Sodium (Chloride) 100 mls @ 100 mls/hr IV Q24H [facility] Stop: 05/05/17 08:59 Last Infusion: 03/10/17 10:20 Dose: Infused Levetiracetam (Keppra Pb) 1,000 mg in 100 mls @ 400 mls/hr IV Q12H [facility] Stop: 05/08/17 13:29 Last Admin: 03/11/17 06:15 Dose: 400 mls/hr Valproate Sodium 1,000 mg/ (Sodium Chloride) 110 mls @ 100 mls/hr IV Q12H [facility] Stop: 05/08/17 16:59 Last Admin: 03/11/17 06:08 Dose: 100 mls/hr Propofol (Diprivan) 1,000 mg in 100 mls @ 8.11 mls/hr IV TITR [facility]; 10 MCG/KG/ MIN PRN Reason: Protocol Stop: 05/08/17 16:51 Last Admin: 03/11/17 01:52 Dose: 20 mcg/kg/min, 16.221 mls/hr Norepinephrine Bitartrate 8 mg (/ Dextrose) 258 mls @ 29.02 mls/hr IV TITR PRN ; Protocol; 15 MCG/MIN PRN Reason: BP MAINTENANCE (PER PROTOCOL) Stop: 05/09/17 13:06 Last Admin: 03/11/17 01:20 Dose: 20 mcg/min, 38.7 mls/hr Insulin Aspart (Novolog Insulin Sliding Scale) 0 units SUBQ Q6HR [facility] PRN Reason: Protocol Stop: 05/03/17 00:00 Last Admin: 03/11/17 06:00 Dose: Not Given Lactobacillus Rhamnosus (Culturelle) 1 each PO DAILY [facility] Stop: 05/01/17 08:59 Last Admin: 03/11/17 08:03 Dose: Not Given Lorazepam (Ativan) 2 mg IVP Q4HR PRN; Protocol PRN Reason: Anxiety Stop: 05/04/17 20:17 Last Admin: 03/09/17 08:45 Dose: 2 mg Lorazepam (Ativan) 4 mg IVP PRN PRN; Protocol PRN Reason: SEIZURE Stop: 05/08/17 13:42 Last Admin: 03/09/17 15:42 Dose: 4 mg Metoprolol Tartrate (Lopressor) 50 mg PO Q12HR [facility] Stop: 04/29/17 08:59 Last Admin: 03/11/17 08:04 Dose: Not Given Miscellaneous (Clinical Monitoring) 1 ea MC DAILY PRN PRN Reason: RENAL Stop: 04/29/17 10:50 Miscellaneous (Vte Chemical Prophylaxis Screen/ Admission) 1 ea PRN PRN PRN Reason: PROTOCOL Stop: 04/29/17 15:40 Miscellaneous (Probiotic Screen) 1 ea PRN PRN PRN Reason: PROTOCOL Stop: 04/30/17 10:56 Miscellaneous (Tpn Per Pharmacy) 1 ea PRN PRN PRN Reason: PROTOCOL Stop: 04/30/17 18:13 Zinc Sulfate (Zinc Sulfate) 220 mg PO DAILY [facility] Stop: 04/29/17 08:59 Last Admin: 03/11/17 08:05 Dose: Not Given General: Other (intubated and sedated), no Alert HEENT: Atraumatic, PERRLA, Other (endotracheal tube noted .) Neck: Supple, +2 carotid pulse wo bruit Cardiovascular: Systolic murmurs, Other (irregularly irregular.) Lungs: Other (diffuse rhonchi throughout.) Abdomen: Bowel sounds, Soft, Obese, Other (multiple abd wounds, w/ wound vac.) Extremities: Other (ecchymosis, hematomas, petecchiae,debrided wound.), no Edema Neurological: Sensation intact, Other (unable to assess.) Skin: Rash, Breakdown (multiple blisters), Significant lesion (multiple bruises and ecchymosis, ischemic wounds.) Psych/Mental Status: Other (intubated and sedated) - Procedures Procedures: Procedures Procedure Code Date EXCISION OF ABD SUBCU/FASCIA, OPEN APPROACH [id number] 02/27/17 EXCISION OF R LOW LEG SUBCU/FASCIA, OPEN APPROACH [id number] 02/27/17 INSERT EMERGENCY AIRWAY [id number] 02/27/17 INSERTION OF ENDOTRACHEAL AIRWAY INTO TRACHEA, VIA OPENING [id number] 02/27/17 REMOVAL OF PRESSURE SORE [id number] 02/27/17 RESPIRATORY VENTILATION, 24-96 CONSECUTIVE HOURS [id number] 02/27/17 VENT MGMT INPAT INIT DAY 87207 02/27/17 Assessment/Plan - Assessment Assessment: * DIC * DVT * RENAL FAILURE * MULTIPLE ABD WALL WOUNDS * RESPIRATORY FAILURE TX PRBC MONITOR DIC PANEL KEEP OFF ANTICOAG Nutritional Asmnt/Malnutr-PDOC - Dietary Evaluation Malnutrition Findings (Please click <Entered> for more info): Nutritional Asmnt/Malnutrition Start: 02/28/17 14: 25 Text: Status: Complete Freq: Document 02/28/17 14:32 GSUN (Rec: 02/28/17 14:52 [email or web address] [email or web address]) Nutritional Asmnt/Malnutrition Patient General Information Nutritional Screening High Risk Screening Diagnosis Infectured multiple abdominal wound, sepsis, hypotension Pertinent Medical Hx/Surgical Hx DM, end stage renal failure, obesity, multiple abdominal wound, anemia Subjective Information 71 [address] consult for wounds/calciphylaxis. Pt was lethargic during visit, spoke to at bedside. Briefly explained renal diet, agreeable to plan, not suitble for extensive edu at this time. Pt appeared obese. Pt reported UBW 250lb measured 1 month ago, pt is unsure of dry weight at dialysis center. Pt reported has gradually lost weight 80lb over the past year due to poor appetite and hospitalizations. RD recommended oral supplements, pt denied, stating she has tried and threw up. Current Diet Order/ Nutrition Support Renal, 1800kcal Pertinent Medications Vitamin C, Vitamin D3, D5-0. 45ns, Pepcid, Novolog, Culturelle, Morphine, Zinc Sulfate Pertinent Labs 8/2: BUN 38H, creatinine 5H, phosphorus 5.4H Nutritional Hx/Data Height 1.63 m Height (Calculated Centimeters) 162.6 Current Weight (lbs) 113.398 kg Weight (Calculated Kilograms) 113.4 Weight (Calculated Grams) 601186.1 [place] Body Weight 120 Recent Weight Change Yes Weight Status Morbidly Obese GI Symptoms Skin Integrity/Comment: Bilateral lower extremities pitting 3+. Abdominal wounds/ calciphylaxis Estimated Nutritional Goals BEE in Kcals: Adj wt of IBW Calories/Kcals/Kg AdjBW 152.5lb/69.3kg (adjsuted to UBW) Kcals Calculated 2079-2426kcal (30-35kcal/kg) Protein: Adj wt of IBW Protein Calculated 90-104g (1.2-1.5/gkg) Fluid: ml 2079-2426ml (1ml/kcal) Nutritional Problem 3. Problem Problem Malnutrition related to Etiology unknown etiology, energy imbalance aeb Signs/Symptoms: BMI >40 2. Problem Problem Increased kcal and prot needs related to Etiology hypermetabolic state aeb Signs/Symptoms: on HD, sepsis 1. Problem Problem Impaired nutrient utilization related to Etiology end stage renal failure aeb Signs/Symptoms: on HD, BUN 38H, creatinine 5H, phosphorus 5.4H Malnutrition Related to Morbid Obesity Malnutrition related to morbid obesity BMI> or equal to 40 Query Text:(Any 1 Criteria met) Malnutrition related to morbid obesity Yes Intervention/Recommendation Comments 1. Recommend renal diet. Briefly explained renal diet, pt is agreeable to plan. Encourage PO intake. 2. Recommend removing " 1800kcal" restriction as pt is in hypermetabolic state ( sepsis, HD) and obese, requiring more than 1800kcal, weight loss not favorable at this time. 3. Pt reported poor appetite many months, RD recommend oral supplements, pt declined. Expected Outcomes/Goals Expected Outcomes/Goals 1. PO intake to meet at least 75% of estimated nutritional needs.
[2017-03-11 10:54] LABS: ANISOCYTOSIS 1+; BAND NEUTROPHILE 3 % (0-10); EOSINOPHIL 3 % (0-5); METAMYELOCYTE 2 % (0-0); MYELOCYTE 1 %; NEUTROPHILS 64 % (40-80); PLATELET ESTIMATE DECREASED PLATELETS (NORMAL); PLATELET MORPHOLOGY NORMAL (NORMAL); TOTAL CELLS COUNTED 100
[2017-03-11] MEDS ORDERED: Lactulose 10 Gm/15 mL 30mL UDC NG SCH (14:00)
--- NOTE | 2017-03-11 15:22 | General Progress Note ---
Subjective - Review of Systems Subjective: Patient is seen and examined. Patient is sedated and intubated. The patient is currently on IV cardizem drip and levophed drip. Patient is spiking fever. Currently on propofol drip and breathing with a rate of 30. Discussed with RN about treatment plan. Overall prognosis is very poor. Objective - Results Result Diagrams: 03/11/17 06:53 03/11/17 06:53 Recent Labs: Laboratory Last Values WBC 16.8 Th/cmm (4.8-10.8) H 03/11/17 06:53 RBC 2.38 Mil/cmm (3.80-5.20) L 03/11/17 06:53 Hgb 7.6 gm/dL (11.7-16.1) L* 03/11/17 06:53 Hct 21.5 % (35.0-45.0) L* 03/11/17 06:53 MCV 90.5 fl (81-100) 03/11/17 06:53 MCH 31.8 pg (27.0-31.0) H 03/11/17 06:53 MCHC Differential 35.1 pg (28.0-36.0) 03/11/17 06:53 RDW 14.9 % (11.5-20.0) 03/11/17 06:53 Plt Count 48 Th/cmm (150-400) L 03/11/17 06:53 MPV 9.6 fl 03/11/17 06:53 Neutrophils % 82.3 % (40.0-80.0) H 03/04/17 05:20 Band Neutrophils % 3 % (0-10) 03/11/17 06:53 Lymphocytes % 11.2 % (20.0-50.0) L 03/04/17 05:20 Monocytes % 5.3 % (2.0-10.0) 03/04/17 05:20 Eosinophils % 1.1 % (0.0-5.0) 03/04/17 05:20 Basophils % 0.1 % (0.0-2.0) 03/04/17 05:20 Neutrophils (Manual) 64 % (40-80) 03/11/17 06:53 Lymphocytes 18 % (20-50) L 03/11/17 06:53 Monocytes 9 % (2-10) 03/11/17 06:53 Eosinophils 3 % (0-5) 03/11/17 06:53 Basophils 1 % (0-3) 03/01/17 12:26 Metamyelocytes 2 % (0-0) H 03/11/17 06:53 Myelocytes 1 % 03/11/17 06:53 Atypical Lymphocytes 1 % 03/07/17 08:20 Hypochromia 1+ 03/03/17 06:29 Platelet Estimate DECREASED PLATELETS (NORMAL) 03/11/17 06:53 Platelet Morphology NORMAL (NORMAL) 03/11/17 06:53 Polychromasia 1+ 03/03/17 06:29 Poikilocytosis 1+ 03/07/17 08:20 Anisocytosis 1+ 03/11/17 06:53 RBC Morph Micro Appear ABNORMAL (NORMAL) 03/11/17 06:53 Plt Count 48 Th/cmm (150-750) L 03/11/17 06:53 PT 16.7 SECONDS (9.5-11.5) H 03/11/17 06:53 INR 1.57 (0.5-1.4) H 03/11/17 06:53 PTT (Actin FS) 43.9 SECONDS (26.0-38.0) H 03/11/17 06:53 Fibrinogen 206.0 mg/dL (200.0-400.0) 03/11/17 06:53 D-Dimer 4120 ng/mL (100-400) H 03/11/17 06:53 Specimen Source Arterial 03/11/17 08:30 Sample Site Left Radial 03/11/17 08:30 pH 7.48 (7.35-7.45) H 03/11/17 08:30 pCO2 34.0 mmHg (35.0-45.0) L 03/11/17 08:30 pO2 63.0 mmHg (80.0-100.0) L 03/11/17 08:30 HCO3 26.5 mEq/L (20.0-26.0) H 03/11/17 08:30 Base Excess 2.1 mEq/L (-3.0-3.0) 03/11/17 08:30 O2 Saturation 93.0 % (92.0-100.0) 03/11/17 08:30 Chaz Test YES 03/11/17 08:30 Vent Rate 12 03/11/17 08:30 Inspired O2 50 03/11/17 08:30 Tidal Volume 500 03/11/17 08:30 PEEP NA 03/11/17 08:30 Pressure (ins/psv/peep) NA 03/11/17 08:30 Critical Value SH 03/11/17 08:30 Sodium 133 mEq/L (136-145) L 03/11/17 06:53 Potassium 4.2 mEq/L (3.5-5.1) 03/11/17 06:53 Chloride 101 mEq/L (98-107) 03/11/17 06:53 Carbon Dioxide 22.2 mEq/L (21.0-31.0) 03/11/17 06:53 Anion Gap 14.0 (7.0-16.0) 03/11/17 06:53 BUN 49 mg/dL (7-25) H 03/11/17 06:53 Creatinine 3.1 mg/dL (0.6-1.2) H 03/11/17 06:53 Est GFR ( Amer) 19.2 ml/min (>90) 03/11/17 06:53 Est GFR (Non-Af Amer) 15.8 ml/min 03/11/17 06:53 BUN/Creatinine Ratio 15.8 03/11/17 06:53 Glucose 117 mg/dL (70-105) H 03/11/17 06:53 POC Glucose 115 MG/DL (70 - 105) H 03/11/17 11:22 Hemoglobin A1c % 4.6 % (4.0-6.0) 02/27/17 19:30 Whole Bld Lactic Acid 3.33 mmol/L (0.60-1.99) H* 03/07/17 10:48 Calcium 7.8 mg/dL (8.6-10.3) L 03/11/17 06:53 Phosphorus 2.7 mg/dL (2.5-5.0) 03/11/17 06:53 Magnesium 2.0 mg/dL (1.9-2.7) 03/11/17 06:53 Total Bilirubin 6.4 mg/dL (0.3-1.0) H 03/11/17 06:53 Direct Bilirubin 3.53 mg/dL (0.0-0.2) H 03/09/17 05:30 AST 55 U/L (13-39) H 03/11/17 06:53 ALT 13 U/L (7-52) 03/11/17 06:53 Alkaline Phosphatase 163 U/L (34-104) H 03/11/17 06:53 Ammonia 223 umol/L (16-53) H 03/11/17 06:53 Troponin I 0.05 ng/mL (0.01-0.05) 03/07/17 08:20 C-Reactive Protein 16.9 mg/dL (0.0-0.9) H 03/10/17 09:30 Total Protein 4.9 gm/dL (6.0-8.3) L 03/11/17 06:53 Albumin 2.0 gm/dL (3.7-5.3) L 03/11/17 06:53 Globulin 2.9 gm/dL 03/11/17 06:53 Albumin/Globulin Ratio 0.7 (1.0-1.8) L 03/11/17 06:53 Prealbumin 4 mg/dL (10-36) L 03/10/17 09:30 Triglycerides 112 mg/dL (<150) 03/03/17 06:29 Cholesterol < 25 mg/dL (<200) 03/05/17 07:45 TSH 4.18 uIU/ml (0.34-5.60) 03/08/17 04:52 PTH Intact 43 pg/mL (15-65) 03/08/17 04:52 Random Amikacin 18.7 ug/ml (1.0-30.0) 03/08/17 13:19 Gentamicin Peak 8.8 ug/ml (4.0-8.0) 03/01/17 10:00 Gentamicin Trough ug/ml (0.2-2.0) 03/01/17 08:30 Serum Ketones NEGATIVE (NEGATIVE) 02/27/17 19:30 Hepatitis A IgM Ab Negative (Negative) 03/02/17 05:36 Hep Bs Antigen Negative (Negative) 03/02/17 05:36 Hep B Core IgM Ab Negative (Negative) 03/02/17 05:36 Hepatitis C Antibody <0.1 s/co ratio (0.0-0.9) 03/02/17 05:36 Blood Type A POSITIVE 03/11/17 06:53 Antibody Screen NEGATIVE 03/11/17 06:53 Crossmatch See Detail 03/11/17 06:53 - Physical Exam Vitals and I&O: Vital Signs Temp 99.0 F 03/11/17 11:00 Pulse 114 03/11/17 15:06 Resp 24 03/11/17 12:00 BP 97/38 03/11/17 14:23 Pulse Ox 94 03/11/17 15:06 Intake & Output 03/10/17 03/11/17 03/11/17 18:59 06:59 18:59 Intake Total 2600.702 2633.227 424.240 Output Total 285 Balance 2600.702 2348.227 424.240 Weight (lbs) 63.957 kg Intake: Intake, IV Amount 2600.702 513.227 424.240 Diltiazem 125 mg In 125 64.417 60.833 Dextrose 5% 100 ml @ 10 MG/HR 10 mls/hr IV TITR [facility] Rx#:[id number] Levetiracetam 1000mg/ 100 100 100mL 1,000 mg In 100 ml @ 400 mls/hr IV Q12H [facility] Rx#:[id number] Meropenem 500 mg In 100 Sodium Chloride 0.9% 100 ml @ 100 mls/hr IV Q24H [facility] Rx#:[id number] Multivitamin Inj 10 ml In 1440 Amino Acids 3% / Electrolytes 700 ml In Intralipids 20% 50 ml In Dextrose 10% 680 ml @ 60 mls/hr IV .Q24H [facility] Rx#: [id number] Norepinephrine 4 mg In 474.472 Dextrose 5% 250 ml @ 37.5 MCG/MIN 142.87 mls/hr IV TITR PRN Rx#:[id number] Norepinephrine 8 mg In 9.19 248.81 258 Dextrose 5% 250 ml @ 15 MCG/MIN 29.02 mls/hr IV TITR PRN Rx#:[id number] Propofol 1,000 mg In 100 142.040 100 105.407 ml @ 10 MCG/KG/MIN 8.11 mls/hr IV TITR [facility] Rx#: [id number] Tigecycline 50 mg In 100 Sodium Chloride 0.9% 100 ml @ 100 mls/hr IV Q12H [facility] Rx#:[id number] Valproate Sodium 1,000 mg 110 In Sodium Chloride 0.9% 100 ml @ 100 mls/hr IV Q12H [facility] Rx#:[id number] TPN/PPN 1400 Blood Product 600 Lipid 120 Output: Drainage 285 Left Lower Abdomen 145 Right Lower Abdomen 140 Active Medications: Current Medications Acetaminophen (Tylenol 650mg Supp) 650 mg RC Q6H PRN PRN Reason: fever Stop: 05/09/17 16:11 Last Admin: 03/10/17 16:49 Dose: 650 mg Acetaminophen/Hydrocodone Bitart (Delaplaine 10 Mg/325 Mg) 1 tab PO Q6H PRN PRN Reason: Pain (Moderate) Stop: 05/04/17 09:27 Albuterol Sulfate (Albuterol 2.5mg/3ml Neb Ud) 2.5 mg HHN Q2H PRN PRN Reason: Shortness of Breath Stop: 04/29/17 03:59 Last Admin: 03/09/17 14:12 Dose: 2.5 mg Albuterol/Ipratropium (Duoneb Neb) 3 ml HHN Q4HRT [facility] Stop: 05/04/17 22:59 Last Admin: 03/11/17 15:06 Dose: 3 ml Ascorbic Acid (Vitamin C) 500 mg PO DAILY [facility] Stop: 04/29/17 08:59 Last Admin: 03/11/17 08:00 Dose: Not Given Budesonide (Pulmicort) 0.25 mg HHN BIDRT [facility] Stop: 05/05/17 06:59 Last Admin: 03/11/17 07:18 Dose: 0.25 mg Chlorhexidine Gluconate (Peridex) 15 ml MM 0800,2000 [facility] Stop: 05/05/17 19:59 Last Admin: 03/11/17 08:18 Dose: 15 ml Cholecalciferol (Vitamin D3) 2,000 iu PO DAILY [facility] Stop: 04/29/17 08:59 Last Admin: 03/11/17 08:02 Dose: Not Given Diphenhydramine HCl (Benadryl) 25 mg PO Q6H PRN PRN Reason: Itching Stop: 04/29/17 03:39 Escitalopram Oxalate (Lexapro) 10 mg PO DAILY [facility] PRN Reason: Protocol Stop: 04/29/17 08:59 Last Admin: 03/11/17 08:03 Dose: Not Given Famotidine (Pepcid) 20 mg IVP DAILY [facility] Stop: 05/01/17 08:59 Last Admin: 03/11/17 08:17 Dose: 20 mg Fludrocortisone Acetate (Florinef) 0.1 mg PO BID [facility] Stop: 04/29/17 08:59 Last Admin: 03/11/17 08:00 Dose: Not Given Diltiazem HCl 125 mg/ Dextrose 125 mls @ 10 mls/hr IV TITR [facility]; 10 MG/HR PRN Reason: Protocol Stop: 04/29/17 04:14 Last Admin: 03/11/17 14:23 Dose: 5 mg/hr, 5 mls/hr Tigecycline 50 mg/ Sodium (Chloride) 100 mls @ 100 mls/hr IV Q12H [facility] Stop: 04/30/17 11:29 Last Admin: 03/11/17 11:37 Dose: 100 mls/hr Multivitamins/Minerals 10 ml/Amino Acids/Electrolytes/ Fat Emulsion Intravenous / Dextrose 1,440 mls @ 60 mls/hr IV .Q24H [facility] Stop: 05/02/17 15:59 Last Admin: 03/10/17 16:32 Dose: 60 mls/hr Amikacin Sulfate 300 mg/ (Dextrose) 101.2 mls @ 100 mls/hr IV PRN PRN PRN Reason: After ea. HD on MWF Stop: 05/05/17 14:59 Meropenem 500 mg/ Sodium (Chloride) 100 mls @ 100 mls/hr IV Q24H [facility] Stop: 05/05/17 08:59 Last Admin: 03/11/17 09:36 Dose: 100 mls/hr Levetiracetam (Keppra Pb) 1,000 mg in 100 mls @ 400 mls/hr IV Q12H [facility] Stop: 05/08/17 13:29 Last Admin: 03/11/17 12:58 Dose: 400 mls/hr Valproate Sodium 1,000 mg/ (Sodium Chloride) 110 mls @ 100 mls/hr IV Q12H [facility] Stop: 05/08/17 16:59 Last Admin: 03/11/17 06:08 Dose: 100 mls/hr Propofol (Diprivan) 1,000 mg in 100 mls @ 8.11 mls/hr IV TITR [facility]; 10 MCG/KG/ MIN PRN Reason: Protocol Stop: 05/08/17 16:51 Last Admin: 03/11/17 13:26 Dose: 20 mcg/kg/min, 16.221 mls/hr Norepinephrine Bitartrate 8 mg (/ Dextrose) 258 mls @ 29.02 mls/hr IV TITR PRN ; Protocol; 15 MCG/MIN PRN Reason: BP MAINTENANCE (PER PROTOCOL) Stop: 05/09/17 13:06 Last Admin: 03/11/17 12:38 Dose: 20 mcg/min, 38.7 mls/hr Insulin Aspart (Novolog Insulin Sliding Scale) 0 units SUBQ Q6HR [facility] PRN Reason: Protocol Stop: 05/03/17 00:00 Last Admin: 03/11/17 11:36 Dose: Not Given Lactobacillus Rhamnosus (Culturelle) 1 each PO DAILY [facility] Stop: 05/01/17 08:59 Last Admin: 03/11/17 08:03 Dose: Not Given Lactulose (Cephulac) 30 gm NG TID [facility] Stop: 05/10/17 13:59 Lorazepam (Ativan) 2 mg IVP Q4HR PRN; Protocol PRN Reason: Anxiety Stop: 05/04/17 20:17 Last Admin: 03/09/17 08:45 Dose: 2 mg Lorazepam (Ativan) 4 mg IVP PRN PRN; Protocol PRN Reason: SEIZURE Stop: 05/08/17 13:42 Last Admin: 03/09/17 15:42 Dose: 4 mg Metoprolol Tartrate (Lopressor) 50 mg PO Q12HR [facility] Stop: 04/29/17 08:59 Last Admin: 03/11/17 08:04 Dose: Not Given Miscellaneous (Clinical Monitoring) 1 ea [facility] DAILY PRN PRN Reason: RENAL Stop: 04/29/17 10:50 Miscellaneous (Vte Chemical Prophylaxis Screen/ Admission) 1 ea MC PRN PRN PRN Reason: PROTOCOL Stop: 04/29/17 15:40 Miscellaneous (Probiotic Screen) 1 ea MC PRN PRN PRN Reason: PROTOCOL Stop: 04/30/17 10:56 Miscellaneous (Tpn Per Pharmacy) 1 ea MC PRN PRN PRN Reason: PROTOCOL Stop: 04/30/17 18:13 Zinc Sulfate (Zinc Sulfate) 220 mg PO DAILY [facility] Stop: 04/29/17 08:59 Last Admin: 03/11/17 08:05 Dose: Not Given General: no Alert HEENT: Atraumatic, PERRLA, Other (endotracheal tube noted .) Neck: Supple, +2 carotid pulse wo bruit Cardiovascular: Systolic murmurs, Other (irregularly irregular.) Lungs: Other (diffuse rhonchi throughout.) Abdomen: Bowel sounds, Soft, Obese, Other (multiple abd wounds, w/ wound vac.) Extremities: Other (ecchymosis, hematomas, petecchiae,debrided wound.), no Edema Neurological: Sensation intact, Other (unable to assess.) Skin: Rash, Breakdown (multiple blisters), Significant lesion (multiple bruises and ecchymosis, ischemic wounds.) Psych/Mental Status: Other (intubated and sedated) - Procedures Procedures: Procedures Procedure Code Date EXCISION OF ABD SUBCU/FASCIA, OPEN APPROACH [id number] 02/27/17 EXCISION OF R LOW LEG SUBCU/FASCIA, OPEN APPROACH [id number] 02/27/17 INSERT EMERGENCY AIRWAY [id number] 02/27/17 INSERTION OF ENDOTRACHEAL AIRWAY INTO TRACHEA, VIA OPENING [id number] 02/27/17 REMOVAL OF PRESSURE SORE [id number] 02/27/17 RESPIRATORY VENTILATION, 24-96 CONSECUTIVE HOURS [id number] 02/27/17 VENT MGMT INPAT INIT DAY 79606 02/27/17 Assessment/Plan - Assessment Assessment: Septic shock. Multiple infected wounds on abdomen and extremities status post debridement with wound VAC. End-stage renal disease on hemodialysis. Hypertension. seizure. Acute respiratory failure requiring endotracheal intubation and mechanical ventilation. Coronary artery disease. ARDS. 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 Anemia of chronic kidney disease and anemia of inflammation. Chronic atrial fibrillation. DIC positive. History of DVT and jugular venous thrombosis. Heparin induced thrombocytopenia history. Diffuse DJD. Bed confined. Guarded prognosis. - Plan Plan: ICU status. Vent support. HHN. Neuro follow-up. Head just propofol drip. Pulmo follow up. Culture directed IV antibiotics as per ID. Hemodialysis as schedule. Wound care as per surgery. Cardiac monitoring. Symptoms management. Medication management. Hematology follow up. Cardiology follow-up. Discussed with mothers helper about treatment plan. General nursing care ID follow-up and follow the recommendations Follow labs. Follow-up consultants recommendations. Prognosis guarded. ICU care. Chronic management of her chronic illnesses. Care plan reviewed and discussed with RN. Nutritional Asmnt/Malnutr-PDOC - Dietary Evaluation Malnutrition Findings (Please click <Entered> for more info): Nutritional Asmnt/Malnutrition Start: 02/28/17 14: 25 Text: Status: Complete Freq: Document 02/28/17 14:32 GSUN (Rec: 02/28/17 14:52 [email or web address] [email or web address]) Nutritional Asmnt/Malnutrition Patient General Information Nutritional Screening High Risk Screening Diagnosis Infectured multiple abdominal wound, sepsis, hypotension Pertinent Medical Hx/Surgical Hx DM, end stage renal failure, obesity, multiple abdominal wound, anemia Subjective Information 71 [address] consult for wounds/calciphylaxis. Pt was lethargic during visit, spoke to at bedside. Briefly explained renal diet, agreeable to plan, not suitble for extensive edu at this time. Pt appeared obese. Pt reported UBW 250lb measured 1 month ago, pt is unsure of dry weight at dialysis center. Pt reported has gradually lost weight 80lb over the past year due to poor appetite and hospitalizations. RD recommended oral supplements, pt denied, stating she has tried and threw up. Current Diet Order/ Nutrition Support Renal, 1800kcal Pertinent Medications Vitamin C, Vitamin D3, D5-0. 45ns, Pepcid, Novolog, Culturelle, Morphine, Zinc Sulfate Pertinent Labs /: BUN 38H, creatinine 5H, phosphorus 5.4H Nutritional Hx/Data Height 1.63 m Height (Calculated Centimeters) 162.6 Current Weight (lbs) 113.398 kg Weight (Calculated Kilograms) 113.4 Weight (Calculated Grams) 551247.1 [place] Body Weight 120 Recent Weight Change Yes Weight Status Morbidly Obese GI Symptoms Skin Integrity/Comment: Bilateral lower extremities pitting 3+. Abdominal wounds/ calciphylaxis Estimated Nutritional Goals BEE in Kcals: Adj wt of IBW Calories/Kcals/Kg AdjBW 152.5lb/69.3kg (adjsuted to UBW) Kcals Calculated 2079-2426kcal (30-35kcal/kg) Protein: Adj wt of IBW Protein Calculated 90-104g (1.2-1.5/gkg) Fluid: ml 2079-2426ml (1ml/kcal) Nutritional Problem 3. Problem Problem Malnutrition related to Etiology unknown etiology, energy imbalance aeb Signs/Symptoms: BMI >40 2. Problem Problem Increased kcal and prot needs related to Etiology hypermetabolic state aeb Signs/Symptoms: on HD, sepsis 1. Problem Problem Impaired nutrient utilization related to Etiology end stage renal failure aeb Signs/Symptoms: on HD, BUN 38H, creatinine 5H, phosphorus 5.4H Malnutrition Related to Morbid Obesity Malnutrition related to morbid obesity BMI> or equal to 40 Query Text:(Any 1 Criteria met) Malnutrition related to morbid obesity Yes Intervention/Recommendation Comments 1. Recommend renal diet. Briefly explained renal diet, pt is agreeable to plan. Encourage PO intake. 2. Recommend removing " 1800kcal" restriction as pt is in hypermetabolic state ( sepsis, HD) and obese, requiring more than 1800kcal, weight loss not favorable at this time. 3. Pt reported poor appetite many months, RD recommend oral supplements, pt declined. Expected Outcomes/Goals Expected Outcomes/Goals 1. PO intake to meet at least 75% of estimated nutritional needs.
[2017-03-11] MEDS: MULTIVITAMIN IV SCH (16:22)
[2017-03-11] MEDS: INTRALIPIDS IV SCH (16:22)
[2017-03-11] MEDS: [UNRECOGNIZED DRUG - OTHER] IV SCH (16:22)
[2017-03-11] MEDS: ELECTROLYTES IV SCH (16:22)
[2017-03-11] MEDS: AMINO ACIDS IV SCH (16:22)
--- NOTE | 2017-03-11 16:59 | Infectious Disease Prog Note ---
Infectious Disease Subjective - Review of Systems Service Date: 03/11/17 Subjective: cc pn hpi- pt on iv bax ros no fver o/e vs chets claer abd soft dx pn resp failure plan same abx Infectious Disease Objective - Results Result Diagrams: 03/11/17 06:53 03/11/17 06:53 Recent Labs: Laboratory Last Values WBC 16.8 Th/cmm (4.8-10.8) H 03/11/17 06:53 RBC 2.38 Mil/cmm (3.80-5.20) L 03/11/17 06:53 Hgb 7.6 gm/dL (11.7-16.1) L* 03/11/17 06:53 Hct 21.5 % (35.0-45.0) L* 03/11/17 06:53 MCV 90.5 fl (81-100) 03/11/17 06:53 MCH 31.8 pg (27.0-31.0) H 03/11/17 06:53 MCHC Differential 35.1 pg (28.0-36.0) 03/11/17 06:53 RDW 14.9 % (11.5-20.0) 03/11/17 06:53 Plt Count 48 Th/cmm (150-400) L 03/11/17 06:53 MPV 9.6 fl 03/11/17 06:53 Neutrophils % 82.3 % (40.0-80.0) H 03/04/17 05:20 Band Neutrophils % 3 % (0-10) 03/11/17 06:53 Lymphocytes % 11.2 % (20.0-50.0) L 03/04/17 05:20 Monocytes % 5.3 % (2.0-10.0) 03/04/17 05:20 Eosinophils % 1.1 % (0.0-5.0) 03/04/17 05:20 Basophils % 0.1 % (0.0-2.0) 03/04/17 05:20 Neutrophils (Manual) 64 % (40-80) 03/11/17 06:53 Lymphocytes 18 % (20-50) L 03/11/17 06:53 Monocytes 9 % (2-10) 03/11/17 06:53 Eosinophils 3 % (0-5) 03/11/17 06:53 Basophils 1 % (0-3) 03/01/17 12:26 Metamyelocytes 2 % (0-0) H 03/11/17 06:53 Myelocytes 1 % 03/11/17 06:53 Atypical Lymphocytes 1 % 03/07/17 08:20 Hypochromia 1+ 03/03/17 06:29 Platelet Estimate DECREASED PLATELETS (NORMAL) 03/11/17 06:53 Platelet Morphology NORMAL (NORMAL) 03/11/17 06:53 Polychromasia 1+ 03/03/17 06:29 Poikilocytosis 1+ 03/07/17 08:20 Anisocytosis 1+ 03/11/17 06:53 RBC Morph Micro Appear ABNORMAL (NORMAL) 03/11/17 06:53 Plt Count 48 Th/cmm (150-750) L 03/11/17 06:53 PT 16.7 SECONDS (9.5-11.5) H 03/11/17 06:53 INR 1.57 (0.5-1.4) H 03/11/17 06:53 PTT (Actin FS) 43.9 SECONDS (26.0-38.0) H 03/11/17 06:53 Fibrinogen 206.0 mg/dL (200.0-400.0) 03/11/17 06:53 D-Dimer 4120 ng/mL (100-400) H 03/11/17 06:53 Specimen Source Arterial 03/11/17 08:30 Sample Site Left Radial 03/11/17 08:30 pH 7.48 (7.35-7.45) H 03/11/17 08:30 pCO2 34.0 mmHg (35.0-45.0) L 03/11/17 08:30 pO2 63.0 mmHg (80.0-100.0) L 03/11/17 08:30 HCO3 26.5 mEq/L (20.0-26.0) H 03/11/17 08:30 Base Excess 2.1 mEq/L (-3.0-3.0) 03/11/17 08:30 O2 Saturation 93.0 % (92.0-100.0) 03/11/17 08:30 Chaz Test YES 03/11/17 08:30 Vent Rate 12 03/11/17 08:30 Inspired O2 50 03/11/17 08:30 Tidal Volume 500 03/11/17 08:30 PEEP NA 03/11/17 08:30 Pressure (ins/psv/peep) NA 03/11/17 08:30 Critical Value SH 03/11/17 08:30 Sodium 133 mEq/L (136-145) L 03/11/17 06:53 Potassium 4.2 mEq/L (3.5-5.1) 03/11/17 06:53 Chloride 101 mEq/L (98-107) 03/11/17 06:53 Carbon Dioxide 22.2 mEq/L (21.0-31.0) 03/11/17 06:53 Anion Gap 14.0 (7.0-16.0) 03/11/17 06:53 BUN 49 mg/dL (7-25) H 03/11/17 06:53 Creatinine 3.1 mg/dL (0.6-1.2) H 03/11/17 06:53 Est GFR ( Amer) 19.2 ml/min (>90) 03/11/17 06:53 Est GFR (Non-Af Amer) 15.8 ml/min 03/11/17 06:53 BUN/Creatinine Ratio 15.8 03/11/17 06:53 Glucose 117 mg/dL (70-105) H 03/11/17 06:53 POC Glucose 115 MG/DL (70 - 105) H 03/11/17 11:22 Hemoglobin A1c % 4.6 % (4.0-6.0) 02/27/17 19:30 Whole Bld Lactic Acid 3.33 mmol/L (0.60-1.99) H* 03/07/17 10:48 Calcium 7.8 mg/dL (8.6-10.3) L 03/11/17 06:53 Phosphorus 2.7 mg/dL (2.5-5.0) 03/11/17 06:53 Magnesium 2.0 mg/dL (1.9-2.7) 03/11/17 06:53 Total Bilirubin 6.4 mg/dL (0.3-1.0) H 03/11/17 06:53 Direct Bilirubin 3.53 mg/dL (0.0-0.2) H 03/09/17 05:30 AST 55 U/L (13-39) H 03/11/17 06:53 ALT 13 U/L (7-52) 03/11/17 06:53 Alkaline Phosphatase 163 U/L (34-104) H 03/11/17 06:53 Ammonia 223 umol/L (16-53) H 03/11/17 06:53 Troponin I 0.05 ng/mL (0.01-0.05) 03/07/17 08:20 C-Reactive Protein 16.9 mg/dL (0.0-0.9) H 03/10/17 09:30 Total Protein 4.9 gm/dL (6.0-8.3) L 03/11/17 06:53 Albumin 2.0 gm/dL (3.7-5.3) L 03/11/17 06:53 Globulin 2.9 gm/dL 03/11/17 06:53 Albumin/Globulin Ratio 0.7 (1.0-1.8) L 03/11/17 06:53 Prealbumin 4 mg/dL (10-36) L 03/10/17 09:30 Triglycerides 112 mg/dL (<150) 03/03/17 06:29 Cholesterol < 25 mg/dL (<200) 03/05/17 07:45 TSH 4.18 uIU/ml (0.34-5.60) 03/08/17 04:52 PTH Intact 43 pg/mL (15-65) 03/08/17 04:52 Random Amikacin 18.7 ug/ml (1.0-30.0) 03/08/17 13:19 Gentamicin Peak 8.8 ug/ml (4.0-8.0) 03/01/17 10:00 Gentamicin Trough ug/ml (0.2-2.0) 03/01/17 08:30 Serum Ketones NEGATIVE (NEGATIVE) 02/27/17 19:30 Hepatitis A IgM Ab Negative (Negative) 03/02/17 05:36 Hep Bs Antigen Negative (Negative) 03/02/17 05:36 Hep B Core IgM Ab Negative (Negative) 03/02/17 05:36 Hepatitis C Antibody <0.1 s/co ratio (0.0-0.9) 03/02/17 05:36 Blood Type A POSITIVE 03/11/17 06:53 Antibody Screen NEGATIVE 03/11/17 06:53 Crossmatch See Detail 03/11/17 06:53 - Physical Exam Vitals and I&O: Vital Signs Temp 98.7 F 03/11/17 15:00 Pulse 110 03/11/17 15:45 Resp 26 03/11/17 15:00 BP 92/36 03/11/17 15:45 Pulse Ox 94 03/11/17 16:00 Intake & Output 03/10/17 03/11/17 03/11/17 18:59 06:59 18:59 Intake Total 2600.702 2633.227 1854.240 Output Total 285 Balance 2600.702 2348.227 1854.240 Weight (lbs) 63.957 kg Intake: Intake, IV Amount 2600.702 440.381 6439.240 Diltiazem 125 mg In 125 64.417 60.833 Dextrose 5% 100 ml @ 10 MG/HR 10 mls/hr IV TITR [facility] Rx#:[id number] Levetiracetam 1000mg/ 100 100 100mL 1,000 mg In 100 ml @ 400 mls/hr IV Q12H [facility] Rx#:[id number] Meropenem 500 mg In 100 Sodium Chloride 0.9% 100 ml @ 100 mls/hr IV Q24H [facility] Rx#:[id number] Multivitamin Inj 10 ml In 1440 1430 Amino Acids 3% / Electrolytes 700 ml In Intralipids 20% 50 ml In Dextrose 10% 680 ml @ 60 mls/hr IV .Q24H [facility] Rx#: [id number] Norepinephrine 4 mg In 474.472 Dextrose 5% 250 ml @ 37.5 MCG/MIN 142.87 mls/hr IV TITR PRN Rx#:[id number] Norepinephrine 8 mg In 9.19 248.81 258 Dextrose 5% 250 ml @ 15 MCG/MIN 29.02 mls/hr IV TITR PRN Rx#:[id number] Propofol 1,000 mg In 100 142.040 100 105.407 ml @ 10 MCG/KG/MIN 8.11 mls/hr IV TITR [facility] Rx#: [id number] Tigecycline 50 mg In 100 Sodium Chloride 0.9% 100 ml @ 100 mls/hr IV Q12H [facility] Rx#:[id number] Valproate Sodium 1,000 mg 110 In Sodium Chloride 0.9% 100 ml @ 100 mls/hr IV Q12H [facility] Rx#:[id number] TPN/PPN 1400 Blood Product 600 Lipid 120 Output: Drainage 285 Left Lower Abdomen 145 Right Lower Abdomen 140 Active Medications: Current Medications Acetaminophen (Tylenol 650mg Supp) 650 mg RC Q6H PRN PRN Reason: fever Stop: 05/09/17 16:11 Last Admin: 03/10/17 16:49 Dose: 650 mg Acetaminophen/Hydrocodone Bitart ([place] 10 Mg/325 Mg) 1 tab PO Q6H PRN PRN Reason: Pain (Moderate) Stop: 05/04/17 09:27 Albuterol Sulfate (Albuterol 2.5mg/3ml Neb Ud) 2.5 mg HHN Q2H PRN PRN Reason: Shortness of Breath Stop: 04/29/17 03:59 Last Admin: 03/09/17 14:12 Dose: 2.5 mg Albuterol/Ipratropium (Duoneb Neb) 3 ml HHN Q4HRT [facility] Stop: 05/04/17 22:59 Last Admin: 03/11/17 15:06 Dose: 3 ml Ascorbic Acid (Vitamin C) 500 mg PO DAILY [facility] Stop: 04/29/17 08:59 Last Admin: 03/11/17 08:00 Dose: Not Given Budesonide (Pulmicort) 0.25 mg HHN BIDRT [facility] Stop: 05/05/17 06:59 Last Admin: 03/11/17 07:18 Dose: 0.25 mg Chlorhexidine Gluconate (Peridex) 15 ml MM 0800,2000 [facility] Stop: 05/05/17 19:59 Last Admin: 03/11/17 08:18 Dose: 15 ml Cholecalciferol (Vitamin D3) 2,000 iu PO DAILY [facility] Stop: 04/29/17 08:59 Last Admin: 03/11/17 08:02 Dose: Not Given Diphenhydramine HCl (Benadryl) 25 mg PO Q6H PRN PRN Reason: Itching Stop: 04/29/17 03:39 Escitalopram Oxalate (Lexapro) 10 mg PO DAILY [facility] PRN Reason: Protocol Stop: 04/29/17 08:59 Last Admin: 03/11/17 08:03 Dose: Not Given Famotidine (Pepcid) 20 mg IVP DAILY [facility] Stop: 05/01/17 08:59 Last Admin: 03/11/17 08:17 Dose: 20 mg Fludrocortisone Acetate (Florinef) 0.1 mg PO BID [facility] Stop: 04/29/17 08:59 Last Admin: 03/11/17 08:00 Dose: Not Given Diltiazem HCl 125 mg/ Dextrose 125 mls @ 10 mls/hr IV TITR [facility]; 10 MG/HR PRN Reason: Protocol Stop: 04/29/17 04:14 Last Admin: 03/11/17 14:23 Dose: 5 mg/hr, 5 mls/hr Tigecycline 50 mg/ Sodium (Chloride) 100 mls @ 100 mls/hr IV Q12H [facility] Stop: 04/30/17 11:29 Last Admin: 03/11/17 11:37 Dose: 100 mls/hr Multivitamins/Minerals 10 ml/Amino Acids/Electrolytes/ Fat Emulsion Intravenous / Dextrose 1,440 mls @ 60 mls/hr IV .Q24H [facility] Stop: 05/02/17 15:59 Last Admin: 03/11/17 16:22 Dose: 60 mls/hr Amikacin Sulfate 300 mg/ (Dextrose) 101.2 mls @ 100 mls/hr IV PRN PRN PRN Reason: After ea. HD on MWF Stop: 05/05/17 14:59 Meropenem 500 mg/ Sodium (Chloride) 100 mls @ 100 mls/hr IV Q24H [facility] Stop: 05/05/17 08:59 Last Admin: 03/11/17 09:36 Dose: 100 mls/hr Levetiracetam (Keppra Pb) 1,000 mg in 100 mls @ 400 mls/hr IV Q12H [facility] Stop: 05/08/17 13:29 Last Admin: 03/11/17 12:58 Dose: 400 mls/hr Valproate Sodium 1,000 mg/ (Sodium Chloride) 110 mls @ 100 mls/hr IV Q12H [facility] Stop: 05/08/17 16:59 Last Admin: 03/11/17 06:08 Dose: 100 mls/hr Propofol (Diprivan) 1,000 mg in 100 mls @ 8.11 mls/hr IV TITR [facility]; 10 MCG/KG/ MIN PRN Reason: Protocol Stop: 05/08/17 16:51 Last Admin: 03/11/17 13:26 Dose: 20 mcg/kg/min, 16.221 mls/hr Norepinephrine Bitartrate 8 mg (/ Dextrose) 258 mls @ 29.02 mls/hr IV TITR PRN ; Protocol; 15 MCG/MIN PRN Reason: BP MAINTENANCE (PER PROTOCOL) Stop: 05/09/17 13:06 Last Admin: 03/11/17 12:38 Dose: 20 mcg/min, 38.7 mls/hr Insulin Aspart (Novolog Insulin Sliding Scale) 0 units SUBQ Q6HR [facility] PRN Reason: Protocol Stop: 05/03/17 00:00 Last Admin: 03/11/17 11:36 Dose: Not Given Lactobacillus Rhamnosus (Culturelle) 1 each PO DAILY [facility] Stop: 05/01/17 08:59 Last Admin: 03/11/17 08:03 Dose: Not Given Lactulose (Cephulac) 30 gm NG TID [facility] Stop: 05/10/17 13:59 Lorazepam (Ativan) 2 mg IVP Q4HR PRN; Protocol PRN Reason: Anxiety Stop: 05/04/17 20:17 Last Admin: 03/09/17 08:45 Dose: 2 mg Lorazepam (Ativan) 4 mg IVP PRN PRN; Protocol PRN Reason: SEIZURE Stop: 05/08/17 13:42 Last Admin: 03/09/17 15:42 Dose: 4 mg Metoprolol Tartrate (Lopressor) 50 mg PO Q12HR [facility] Stop: 04/29/17 08:59 Last Admin: 03/11/17 08:04 Dose: Not Given Miscellaneous (Clinical Monitoring) 1 ea MC DAILY PRN PRN Reason: RENAL Stop: 04/29/17 10:50 Miscellaneous (Vte Chemical Prophylaxis Screen/ Admission) 1 ea MC PRN PRN PRN Reason: PROTOCOL Stop: 04/29/17 15:40 Miscellaneous (Probiotic Screen) 1 ea MC PRN PRN PRN Reason: PROTOCOL Stop: 04/30/17 10:56 Miscellaneous (Tpn Per Pharmacy) 1 ea MC PRN PRN PRN Reason: PROTOCOL Stop: 04/30/17 18:13 Zinc Sulfate (Zinc Sulfate) 220 mg PO DAILY [facility] Stop: 04/29/17 08:59 Last Admin: 03/11/17 08:05 Dose: Not Given - Procedures Procedures: Procedures Procedure Code Date EXCISION OF ABD SUBCU/FASCIA, OPEN APPROACH [id number] 02/27/17 EXCISION OF R LOW LEG SUBCU/FASCIA, OPEN APPROACH [id number] 02/27/17 INSERT EMERGENCY AIRWAY 47604 02/27/17 INSERTION OF ENDOTRACHEAL AIRWAY INTO TRACHEA, VIA OPENING [id number] 02/27/17 REMOVAL OF PRESSURE SORE 95084 02/27/17 RESPIRATORY VENTILATION, 24-96 CONSECUTIVE HOURS [id number] 02/27/17 VENT MGMT INPAT INIT DAY 74889 02/27/17 Nutritional Asmnt/Malnutr-PDOC - Dietary Evaluation Malnutrition Findings (Please click <Entered> for more info): Nutritional Asmnt/Malnutrition Start: 02/28/17 14: 25 Text: Status: Complete Freq: Document 02/28/17 14:32 GSUN (Rec: 02/28/17 14:52 [id number]) Nutritional Asmnt/Malnutrition Patient General Information Nutritional Screening High Risk Screening Diagnosis Infectured multiple abdominal wound, sepsis, hypotension Pertinent Medical Hx/Surgical Hx DM, end stage renal failure, obesity, multiple abdominal wound, anemia Subjective Information 71 [address] consult for wounds/calciphylaxis. Pt was lethargic during visit, spoke to at bedside. Briefly explained renal diet, agreeable to plan, not suitble for extensive edu at this time. Pt appeared obese. Pt reported UBW 250lb measured 1 month ago, pt is unsure of dry weight at dialysis center. Pt reported has gradually lost weight 80lb over the past year due to poor appetite and hospitalizations. RD recommended oral supplements, pt denied, stating she has tried and threw up. Current Diet Order/ Nutrition Support Renal, 1800kcal Pertinent Medications Vitamin C, Vitamin D3, D5-0. 45ns, Pepcid, Novolog, Culturelle, Morphine, Zinc Sulfate Pertinent Labs 02/28: BUN 38H, creatinine 5H, phosphorus 5.4H Nutritional Hx/Data Height 1.63 m Height (Calculated Centimeters) 162.6 Current Weight (lbs) 113.398 kg Weight (Calculated Kilograms) 113.4 Weight (Calculated Grams) 708289.1 [place] Body Weight 120 Recent Weight Change Yes Weight Status Morbidly Obese GI Symptoms Skin Integrity/Comment: Bilateral lower extremities pitting 3+. Abdominal wounds/ calciphylaxis Estimated Nutritional Goals BEE in Kcals: Adj wt of IBW Calories/Kcals/Kg AdjBW 152.5lb/69.3kg (adjsuted to UBW) Kcals Calculated 2078-2426kcal (30-35kcal/kg) Protein: Adj wt of IBW Protein Calculated 90-104g (1.2-1.5/gkg) Fluid: ml 2079-2426ml (1ml/kcal) Nutritional Problem 3. Problem Problem Malnutrition related to Etiology unknown etiology, energy imbalance aeb Signs/Symptoms: BMI >40 2. Problem Problem Increased kcal and prot needs related to Etiology hypermetabolic state aeb Signs/Symptoms: on HD, sepsis 1. Problem Problem Impaired nutrient utilization related to Etiology end stage renal failure aeb Signs/Symptoms: on HD, BUN 38H, creatinine 5H, phosphorus 5.4H Malnutrition Related to Morbid Obesity Malnutrition related to morbid obesity BMI> or equal to 40 Query Text:(Any 1 Criteria met) Malnutrition related to morbid obesity Yes Intervention/Recommendation Comments 1. Recommend renal diet. Briefly explained renal diet, pt is agreeable to plan. Encourage PO intake. 2. Recommend removing " 1800kcal" restriction as pt is in hypermetabolic state ( sepsis, HD) and obese, requiring more than 1800kcal, weight loss not favorable at this time. 3. Pt reported poor appetite many months, RD recommend oral supplements, pt declined. Expected Outcomes/Goals Expected Outcomes/Goals 1. PO intake to meet at least 75% of estimated nutritional needs.
[2017-03-11] MEDS: Lactulose 10 Gm/15 mL 30mL UDC PO SCH (21:00)
--- NOTE | 2017-03-11 21:47 | Progress Notes ---
DATE: 03/11/2017 PULMONARY PROGRESS NOTE PROBLEM LIST: 1. Acute septic shock. 2. Abdominal wound. 3. Respiratory failure. 4. Bilateral pneumonia with fluid overload. 5. Underlying history of chronic hemodialysis, also history of obstructive sleep apnea syndrome. SYMPTOMS: The patient is quite obtunded despite her using Levophed within 25-30 and quite tachypneic, though no respiratory distress. PHYSICAL EXAMINATION: VITAL SIGNS: The patient's temperature is 98 to 99, heart rate is 110. Blood pressure is 98/38 on Levophed and also Cardizem drip. HEENT: The head is essentially unremarkable. Pupils appear to be equal and reacting to light. Conjunctivae are slightly pallor. Oral cavity essentially unremarkable. EXTREMITIES: With the dressing, extremities show changes with poor pulsations. LABORATORY DATA: The patient's sputum does show Acinetobacter baumannii and also abdominal wound on multiple areas shows klebseilla pneumoniae ESBL as well as Enterobacter faecalis VRE on this patient. The patient's other laboratory studies: White count is 16.8, hemoglobin 9.76, platelet is 48,000, and the patient's ABG shows pO2 of 63 on 50% of oxygen. Chest x-ray shows slightly worsening versus increased interstitial changes. ASSESSMENT: The patient is clinically doing poorly with septic shock, multiple resistant organisms with underlying significantly immunocompromise saturation with renal failure. PLANS AND SUGGESTIONS: I have discussed with LEVI. We will increase propofol and discuss with Dr. Bishop. Overall prognosis appears to be very poor and we will see how she does in the next few days and go from there. JOB# [id number]
[2017-03-12] MEDS: Levetiracetam 1000mg/100mL 1,000 MG/100 ML BAG IV SCH ×2 (01:30→14:04)
[2017-03-12] MEDS ORDERED: Albumin 25% 12.5gm/50mL 12.5 GM/50 ML BTL IV SCH (02:00)
[2017-03-12] MEDS: Albuterol/Ipratropium Neb 3 ML AERS HHN SCH ×5 (03:04→22:35)
[2017-03-12] MEDS: Valproate Sodium 1,000 MG in Sodium Chloride 0.9% 100 ML IV SCH ×2 (05:00→16:50)
[2017-03-12] MEDS: INSULIN ASPART SLIDING SCALE 100 UNITS/ML UNIT SUBQ SCH ×3 (05:16→18:01)
[2017-03-12 05:22] LABS: % BASOPHILS 0.1 % (0.0-2.0)
[2017-03-12 05:41] LABS: % EOSINOPHILS 5.6 % (0.0-5.0); % LYMPHOCYTES 12.3 % (20.0-50.0); % MONOCYTES 6.5 % (2.0-10.0); % NEUTROPHILS 75.5 % (40.0-80.0); HEMATOCRIT 24.1 % (35.0-45.0); HEMOGLOBIN 8.5 gm/dL (11.7-16.1); MEAN CELL VOLUME 91.6 fl (81-100); MEAN CORPUSCULAR HEMOGLOBIN 32.4 pg (27.0-31.0); MEAN CORPUSCULAR HGB CONC 35.4 pg (28.0-36.0); MEAN PLATELET VOLUME 9.9 fl; NEUTROPHILE ABSOLUTE 12.8 Th/cmm (1.8-8.0); PLATELET COUNT 33 Th/cmm (150-400); RED BLOOD COUNT 2.64 Mil/cmm (3.80-5.20); RED CELL DISTRIBUTION WIDTH 15.5 % (11.5-20.0)
[2017-03-12 06:03] LABS: WHITE BLOOD COUNT 16.9 Th/cmm (4.8-10.8)
[2017-03-12] MEDS: Budesonide 0.5 Mg/2 mL Ud HHN SCH ×2 (07:25→18:48)
[2017-03-12 07:58] LABS: ALB/GLOB RATIO 0.5 (1.0-1.8); ANION GAP 9.6 (7.0-16.0); BILIRUBIN,TOTAL 5.9 mg/dL (0.3-1.0); BUN/CREATININE RATIO 16.7; CALCIUM SERUM 7.8 mg/dL (8.6-10.3); CARBON DIOXIDE 24.1 mEq/L (21.0-31.0); CREATININE - SERUM 2.4 mg/dL (0.6-1.2); MAGNESIUM 1.7 mg/dL (1.9-2.7); PHOSPHOROUS 2.2 mg/dL (2.5-5.0); POTASSIUM SERUM 3.7 mEq/L (3.5-5.1)
[2017-03-12] MEDS: Lactobacillus Rhamnosus 10 Billion CFU Capsule PO SCH (08:15)
[2017-03-12] MEDS: Meropenem 500 MG in Sodium Chloride 0.9% 100 ML IV SCH (08:23)
[2017-03-12] MEDS: Chlorhexidine Gluconate 0.12% 15mL Mouthwash MM SCH ×2 (08:24→20:41)
[2017-03-12] MEDS: Venelex 60gm Tube TP SCH (08:25)
--- NOTE | 2017-03-12 09:02 | General Progress Note ---
Subjective - Review of Systems Subjective: Patient is seen and examined. Patient is sedated and intubated. Patient is on levophed drip and cardizem drip. Discussed with nursing staff about care plan. Consultants notes reviewed. Objective - Results Result Diagrams: 03/12/17 04:57 03/12/17 06:52 Recent Labs: Laboratory Last Values WBC 16.9 Th/cmm (4.8-10.8) H 03/12/17 04:57 RBC 2.64 Mil/cmm (3.80-5.20) L 03/12/17 04:57 Hgb 8.5 gm/dL (11.7-16.1) L 03/12/17 04:57 Hct 24.1 % (35.0-45.0) L 03/12/17 04:57 MCV 91.6 fl (81-100) 03/12/17 04:57 MCH 32.4 pg (27.0-31.0) H 03/12/17 04:57 MCHC Differential 35.4 pg (28.0-36.0) 03/12/17 04:57 RDW 15.5 % (11.5-20.0) 03/12/17 04:57 Plt Count 33 Th/cmm (150-400) L D 03/12/17 04:57 MPV 9.9 fl 03/12/17 04:57 Neutrophils % 75.5 % (40.0-80.0) 03/12/17 04:57 Band Neutrophils % 3 % (0-10) 03/11/17 06:53 Lymphocytes % 12.3 % (20.0-50.0) L 03/12/17 04:57 Monocytes % 6.5 % (2.0-10.0) 03/12/17 04:57 Eosinophils % 5.6 % (0.0-5.0) H 03/12/17 04:57 Basophils % 0.1 % (0.0-2.0) 03/12/17 04:57 Neutrophils (Manual) 64 % (40-80) 03/11/17 06:53 Lymphocytes 18 % (20-50) L 03/11/17 06:53 Monocytes 9 % (2-10) 03/11/17 06:53 Eosinophils 3 % (0-5) 03/11/17 06:53 Basophils 1 % (0-3) 03/01/17 12:26 Metamyelocytes 2 % (0-0) H 03/11/17 06:53 Myelocytes 1 % 03/11/17 06:53 Atypical Lymphocytes 1 % 03/07/17 08:20 Hypochromia 1+ 03/03/17 06:29 Platelet Estimate DECREASED PLATELETS (NORMAL) 03/11/17 06:53 Platelet Morphology NORMAL (NORMAL) 03/11/17 06:53 Polychromasia 1+ 03/03/17 06:29 Poikilocytosis 1+ 03/07/17 08:20 Anisocytosis 1+ 03/11/17 06:53 RBC Morph Micro Appear ABNORMAL (NORMAL) 03/11/17 06:53 Plt Count 48 Th/cmm (150-750) L 03/11/17 06:53 PT 16.7 SECONDS (9.5-11.5) H 03/11/17 06:53 INR 1.57 (0.5-1.4) H 03/11/17 06:53 PTT (Actin FS) 43.9 SECONDS (26.0-38.0) H 03/11/17 06:53 Fibrinogen 206.0 mg/dL (200.0-400.0) 03/11/17 06:53 D-Dimer 4120 ng/mL (100-400) H 03/11/17 06:53 Specimen Source Arterial 03/11/17 08:30 Sample Site Left Radial 03/11/17 08:30 pH 7.48 (7.35-7.45) H 03/11/17 08:30 pCO2 34.0 mmHg (35.0-45.0) L 03/11/17 08:30 pO2 63.0 mmHg (80.0-100.0) L 03/11/17 08:30 HCO3 26.5 mEq/L (20.0-26.0) H 03/11/17 08:30 Base Excess 2.1 mEq/L (-3.0-3.0) 03/11/17 08:30 O2 Saturation 93.0 % (92.0-100.0) 03/11/17 08:30 Chaz Test YES 03/11/17 08:30 Vent Rate 12 03/11/17 08:30 Inspired O2 50 03/11/17 08:30 Tidal Volume 500 03/11/17 08:30 PEEP NA 03/11/17 08:30 Pressure (ins/psv/peep) NA 03/11/17 08:30 Critical Value SH 03/11/17 08:30 Sodium 132 mEq/L (136-145) L 03/12/17 06:52 Potassium 3.7 mEq/L (3.5-5.1) 03/12/17 06:52 Chloride 102 mEq/L (98-107) 03/12/17 06:52 Carbon Dioxide 24.1 mEq/L (21.0-31.0) 03/12/17 06:52 Anion Gap 9.6 (7.0-16.0) 03/12/17 06:52 BUN 40 mg/dL (7-25) H 03/12/17 06:52 Creatinine 2.4 mg/dL (0.6-1.2) H 03/12/17 06:52 Est GFR ( Amer) 25.7 ml/min (>90) 03/12/17 06:52 Est GFR (Non-Af Amer) 21.3 ml/min 03/12/17 06:52 BUN/Creatinine Ratio 16.7 03/12/17 06:52 Glucose 129 mg/dL (70-105) H 03/12/17 06:52 POC Glucose 145 MG/DL (70 - 105) H 03/12/17 05:00 Hemoglobin A1c % 4.6 % (4.0-6.0) 02/27/17 19:30 Whole Bld Lactic Acid 3.33 mmol/L (0.60-1.99) H* 03/07/17 10:48 Calcium 7.8 mg/dL (8.6-10.3) L 03/12/17 06:52 Phosphorus 2.2 mg/dL (2.5-5.0) L 03/12/17 06:52 Magnesium 1.7 mg/dL (1.9-2.7) L 03/12/17 06:52 Total Bilirubin 5.9 mg/dL (0.3-1.0) H 03/12/17 06:52 Direct Bilirubin 3.53 mg/dL (0.0-0.2) H 03/09/17 05:30 AST 62 U/L (13-39) H 03/12/17 06:52 ALT 13 U/L (7-52) 03/12/17 06:52 Alkaline Phosphatase 186 U/L (34-104) H 03/12/17 06:52 Ammonia 223 umol/L (16-53) H 03/11/17 06:53 Troponin I 0.05 ng/mL (0.01-0.05) 03/07/17 08:20 C-Reactive Protein 16.9 mg/dL (0.0-0.9) H 03/10/17 09:30 Total Protein 4.7 gm/dL (6.0-8.3) L 03/12/17 06:52 Albumin 1.6 gm/dL (3.7-5.3) L 03/12/17 06:52 Globulin 3.1 gm/dL 03/12/17 06:52 Albumin/Globulin Ratio 0.5 (1.0-1.8) L 03/12/17 06:52 Prealbumin 4 mg/dL (10-36) L 03/10/17 09:30 Triglycerides 112 mg/dL (<150) 03/03/17 06:29 Cholesterol < 25 mg/dL (<200) 03/05/17 07:45 TSH 4.18 uIU/ml (0.34-5.60) 03/08/17 04:52 PTH Intact 43 pg/mL (15-65) 03/08/17 04:52 Random Amikacin 12.1 ug/ml (1.0-30.0) 03/10/17 09:30 Gentamicin Peak 8.8 ug/ml (4.0-8.0) 03/01/17 10:00 Gentamicin Trough ug/ml (0.2-2.0) 03/01/17 08:30 Serum Ketones NEGATIVE (NEGATIVE) 02/27/17 19:30 Hepatitis A IgM Ab Negative (Negative) 03/02/17 05:36 Hep Bs Antigen Negative (Negative) 03/02/17 05:36 Hep B Core IgM Ab Negative (Negative) 03/02/17 05:36 Hepatitis C Antibody <0.1 s/co ratio (0.0-0.9) 03/02/17 05:36 Blood Type A POSITIVE 03/11/17 06:53 Antibody Screen NEGATIVE 03/11/17 06:53 Crossmatch See Detail 03/11/17 06:53 - Physical Exam Vitals and I&O: Vital Signs Temp 97.6 F 03/12/17 07:00 Pulse 120 03/12/17 08:15 Resp 28 03/12/17 08:27 BP 93/36 03/12/17 08:15 Pulse Ox 92 03/12/17 07:27 Intake & Output 03/11/17 03/12/17 03/12/17 18:59 06:59 18:59 Intake Total 2504.180 3006.516 Output Total 3075 Balance 2504.180 -68.484 Weight (lbs) 131.542 kg Intake: Intake, IV Amount 2504.180 1206.516 Diltiazem 125 mg In 60.833 125.000 Dextrose 5% 100 ml @ 10 MG/HR 10 mls/hr IV TITR [facility] Rx#:[id number] Levetiracetam 1000mg/ 100 100 100mL 1,000 mg In 100 ml @ 400 mls/hr IV Q12H [facility] Rx#:[id number] Meropenem 500 mg In 100 Sodium Chloride 0.9% 100 ml @ 100 mls/hr IV Q24H [facility] Rx#:[id number] Multivitamin Inj 10 ml In 1430 Amino Acids 3% / Electrolytes 700 ml In Intralipids 20% 50 ml In Dextrose 10% 680 ml @ 60 mls/hr IV .Q24H [facility] Rx#: [id number] Norepinephrine 8 mg In 497.94 468.786 Dextrose 5% 250 ml @ 15 MCG/MIN 29.02 mls/hr IV TITR [facility]N Rx#:[id number] Propofol 1,000 mg In 100 105.407 192.730 ml @ 10 MCG/KG/MIN 8.11 mls/hr IV TITR [facility] Rx#: [id number] Tigecycline 50 mg In 100 100 Sodium Chloride 0.9% 100 ml @ 100 mls/hr IV Q12H [facility] Rx#:[id number] Valproate Sodium 1,000 mg 110 220 In Sodium Chloride 0.9% 100 ml @ 100 mls/hr IV Q12H [facility] Rx#:[id number] Oral 0 TPN/PPN 1440 Blood Product 250 Other 110 Output: Drainage 775 Left Lower Abdomen 525 Right Lower Abdomen 250 Urine 0 Stool 300 Hemodialysis 2000 Other: # Bowel Movements 1 Stool Characteristics Hard Active Medications: Current Medications Acetaminophen (Tylenol 650mg Supp) 650 mg RC Q6H PRN PRN Reason: fever Stop: 05/09/17 16:11 Last Admin: 03/10/17 16:49 Dose: 650 mg Acetaminophen/Hydrocodone Bitart ([place] 10 Mg/325 Mg) 1 tab PO Q6H PRN PRN Reason: Pain (Moderate) Stop: 05/04/17 09:27 Albuterol Sulfate (Albuterol 2.5mg/3ml Neb Ud) 2.5 mg HHN Q2H PRN PRN Reason: Shortness of Breath Stop: 04/29/17 03:59 Last Admin: 03/09/17 14:12 Dose: 2.5 mg Albuterol/Ipratropium (Duoneb Neb) 3 ml HHN Q4HRT [facility] Stop: 05/04/17 22:59 Last Admin: 03/12/17 03:04 Dose: 3 ml Ascorbic Acid (Vitamin C) 500 mg PO DAILY [facility] Stop: 04/29/17 08:59 Last Admin: 03/12/17 08:13 Dose: Not Given Budesonide (Pulmicort) 0.25 mg HHN BIDRT [facility] Stop: 05/05/17 06:59 Last Admin: 03/12/17 07:25 Dose: 0.25 mg Chlorhexidine Gluconate (Peridex) 15 ml MM 0800,1999 [facility] Stop: 05/05/17 19:59 Last Admin: 03/12/17 08:24 Dose: 15 ml Cholecalciferol (Vitamin D3) 2,000 iu PO DAILY [facility] Stop: 04/29/17 08:59 Last Admin: 03/12/17 08:14 Dose: Not Given Diphenhydramine HCl (Benadryl) 25 mg PO Q6H PRN PRN Reason: Itching Stop: 04/29/17 03:39 Escitalopram Oxalate (Lexapro) 10 mg PO DAILY [facility] PRN Reason: Protocol Stop: 04/29/17 08:59 Last Admin: 03/12/17 08:15 Dose: Not Given Famotidine (Pepcid) 20 mg IVP DAILY [facility] Stop: 05/01/17 08:59 Last Admin: 03/12/17 08:22 Dose: 20 mg Fludrocortisone Acetate (Florinef) 0.1 mg PO BID [facility] Stop: 04/29/17 08:59 Last Admin: 03/12/17 08:12 Dose: Not Given Diltiazem HCl 125 mg/ Dextrose 125 mls @ 10 mls/hr IV TITR [facility]; 10 MG/HR PRN Reason: Protocol Stop: 04/29/17 04:14 Last Titration: 03/12/17 05:18 Dose: Infused Tigecycline 50 mg/ Sodium (Chloride) 100 mls @ 100 mls/hr IV Q12H [facility] Stop: 04/30/17 11:29 Last Infusion: 03/12/17 00:30 Dose: Infused Multivitamins/Minerals 10 ml/Amino Acids/Electrolytes/ Fat Emulsion Intravenous / Dextrose 1,440 mls @ 60 mls/hr IV .Q24H [facility] Stop: 05/02/17 15:59 Last Admin: 03/11/17 16:22 Dose: 60 mls/hr Amikacin Sulfate 300 mg/ (Dextrose) 101.2 mls @ 100 mls/hr IV PRN PRN PRN Reason: After ea. HD on MWF Stop: 05/05/17 14:59 Meropenem 500 mg/ Sodium (Chloride) 100 mls @ 100 mls/hr IV Q24H [facility] Stop: 05/05/17 08:59 Last Admin: 03/12/17 08:23 Dose: 100 mls/hr Levetiracetam (Keppra Pb) 1,000 mg in 100 mls @ 400 mls/hr IV Q12H [facility] Stop: 05/08/17 13:29 Last Infusion: 03/12/17 01:40 Dose: Infused Valproate Sodium 1,000 mg/ (Sodium Chloride) 110 mls @ 100 mls/hr IV Q12H [facility] Stop: 05/08/17 16:59 Last Infusion: 03/12/17 05:17 Dose: Infused Propofol (Diprivan) 1,000 mg in 100 mls @ 8.11 mls/hr IV TITR [facility]; 10 MCG/KG/ MIN PRN Reason: Protocol Stop: 05/08/17 16:51 Last Titration: 03/12/17 05:24 Dose: 30 mcg/kg/min, 24.331 mls/hr Norepinephrine Bitartrate 8 mg (/ Dextrose) 258 mls @ 29.02 mls/hr IV TITR PRN ; Protocol; 15 MCG/MIN PRN Reason: BP MAINTENANCE (PER PROTOCOL) Stop: 05/09/17 13:06 Last Titration: 03/12/17 05:25 Dose: 38 mcg/min, 73.53 mls/hr Insulin Aspart (Novolog Insulin Sliding Scale) 0 units SUBQ Q6HR [facility] PRN Reason: Protocol Stop: 05/03/17 00:00 Last Admin: 03/12/17 05:16 Dose: Not Given Lactobacillus Rhamnosus (Culturelle) 1 each PO DAILY [facility] Stop: 05/01/17 08:59 Last Admin: 03/12/17 08:15 Dose: Not Given Lactulose (Cephulac) 30 gm PO TID [facility] Stop: 05/10/17 20:59 Last Admin: 03/11/17 21:00 Dose: 30 gm Lorazepam (Ativan) 2 mg IVP Q4HR PRN; Protocol PRN Reason: Anxiety Stop: 05/04/17 20:17 Last Admin: 03/09/17 08:45 Dose: 2 mg Lorazepam (Ativan) 4 mg IVP PRN PRN; Protocol PRN Reason: SEIZURE Stop: 05/08/17 13:42 Last Admin: 03/09/17 15:42 Dose: 4 mg Metoprolol Tartrate (Lopressor) 50 mg PO Q12HR [facility] Stop: 04/29/17 08:59 Last Admin: 03/12/17 08:15 Dose: Not Given Miscellaneous (Clinical Monitoring) 1 ea [facility] DAILY PRN PRN Reason: RENAL Stop: 04/29/17 10:50 Miscellaneous (Vte Chemical Prophylaxis Screen/ Admission) 1 ea MC PRN PRN PRN Reason: PROTOCOL Stop: 04/29/17 15:40 Miscellaneous (Probiotic Screen) 1 ea MC PRN PRN PRN Reason: PROTOCOL Stop: 04/30/17 10:56 Miscellaneous (Tpn Per Pharmacy) 1 ea MC PRN PRN PRN Reason: PROTOCOL Stop: 04/30/17 18:13 Zinc Sulfate (Zinc Sulfate) 220 mg PO DAILY [facility] Stop: 04/29/17 08:59 Last Admin: 03/12/17 08:16 Dose: Not Given General: no Alert HEENT: Atraumatic, PERRLA, Other (endotracheal tube noted .) Neck: Supple, +2 carotid pulse wo bruit Cardiovascular: Systolic murmurs, Other (irregularly irregular.) Lungs: Other (diffuse rhonchi throughout.) Abdomen: Bowel sounds, Soft, Obese, Other (multiple abd wounds, w/ wound vac.) Extremities: Other (ecchymosis, hematomas, petecchiae,debrided wound.), no Edema Neurological: Sensation intact, Other (unable to assess.) Skin: Rash, Breakdown (multiple blisters), Significant lesion (multiple bruises and ecchymosis, ischemic wounds.) Psych/Mental Status: Other (intubated and sedated) - Procedures Procedures: Procedures Procedure Code Date EXCISION OF ABD SUBCU/FASCIA, OPEN APPROACH [id number] 02/27/17 EXCISION OF R LOW LEG SUBCU/FASCIA, OPEN APPROACH [id number] 02/27/17 INSERT EMERGENCY AIRWAY [id number] 02/27/17 INSERTION OF ENDOTRACHEAL AIRWAY INTO TRACHEA, VIA OPENING [id number] 02/27/17 REMOVAL OF PRESSURE SORE 19609 02/27/17 RESPIRATORY VENTILATION, 24-96 CONSECUTIVE HOURS [id number] 02/27/17 VENT MGMT INPAT IN DAY 87717 02/27/17 Assessment/Plan - Assessment Assessment: Septic shock. Multiple infected wounds on abdomen and extremities status post debridement with wound VAC. End-stage renal disease on hemodialysis. Hypertension. seizure. Acute respiratory failure requiring endotracheal intubation and mechanical ventilation. Coronary artery disease. ARDS. 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 Anemia of chronic kidney disease and anemia of inflammation as well as due to DIC status post blood transfusion. Chronic atrial fibrillation. DIC positive. History of DVT and jugular venous thrombosis. Heparin induced thrombocytopenia history. Diffuse DJD. Bed confined. Guarded prognosis. - Plan Plan: ICU status. Vent support. HHN. Neuro follow-up. Propofol drip. Pulmo follow up. Culture directed IV antibiotics as per ID. Hemodialysis as schedule. Wound care as per surgery. Cardiac monitoring. Symptoms management. Medication management. Hematology follow up. Cardiology follow-up. General nursing care ID follow-up and follow the recommendations Follow labs. Follow-up consultants recommendations. Prognosis guarded. ICU care. Chronic management of her chronic illnesses. Care plan reviewed and discussed with RN. Nutritional Asmnt/Malnutr-PDOC - Dietary Evaluation Malnutrition Findings (Please click <Entered> for more info): Nutritional Asmnt/Malnutrition Start: 02/28/17 14: 25 Text: Status: Complete Freq: Document 02/28/17 14:32 GSUN (Rec: 02/28/17 14:52 [email or web address] [email or web address]) Nutritional Asmnt/Malnutrition Patient General Information Nutritional Screening High Risk Screening Diagnosis Infectured multiple abdominal wound, sepsis, hypotension Pertinent Medical Hx/Surgical Hx DM, end stage renal failure, obesity, multiple abdominal wound, anemia Subjective Information 71 [address] consult for wounds/calciphylaxis. Pt was lethargic during visit, spoke to at bedside. Briefly explained renal diet, agreeable to plan, not suitble for extensive edu at this time. Pt appeared obese. Pt reported UBW 250lb measured 1 month ago, pt is unsure of dry weight at dialysis center. Pt reported has gradually lost weight 80lb over the past year due to poor appetite and hospitalizations. RD recommended oral supplements, pt denied, stating she has tried and threw up. Current Diet Order/ Nutrition Support Renal, 1800kcal Pertinent Medications Vitamin C, Vitamin D3, D5-0. 45ns, Pepcid, Novolog, Culturelle, Morphine, Zinc Sulfate Pertinent Labs 02/28: BUN 38H, creatinine 5H, phosphorus 5.4H Nutritional Hx/Data Height 1.63 m Height (Calculated Centimeters) 162.6 Current Weight (lbs) 113.398 kg Weight (Calculated Kilograms) 113.4 Weight (Calculated Grams) 696111.1 [place] Body Weight 120 Recent Weight Change Yes Weight Status Morbidly Obese GI Symptoms Skin Integrity/Comment: Bilateral lower extremities pitting 3+. Abdominal wounds/ calciphylaxis Estimated Nutritional Goals BEE in Kcals: Adj wt of IBW Calories/Kcals/Kg AdjBW 152.5lb/69.3kg (adjsuted to UBW) Kcals Calculated 2079-2426kcal (30-35kcal/kg) Protein: Adj wt of IBW Protein Calculated 90-104g (1.2-1.5/gkg) Fluid: ml 2079-2426ml (1ml/kcal) Nutritional Problem 3. Problem Problem Malnutrition related to Etiology unknown etiology, energy imbalance aeb Signs/Symptoms: BMI >40 2. Problem Problem Increased kcal and prot needs related to Etiology hypermetabolic state aeb Signs/Symptoms: on HD, sepsis 1. Problem Problem Impaired nutrient utilization related to Etiology end stage renal failure aeb Signs/Symptoms: on HD, BUN 38H, creatinine 5H, phosphorus 5.4H Malnutrition Related to Morbid Obesity Malnutrition related to morbid obesity BMI> or equal to 40 Query Text:(Any 1 Criteria met) Malnutrition related to morbid obesity Yes Intervention/Recommendation Comments 1. Recommend renal diet. Briefly explained renal diet, pt is agreeable to plan. Encourage PO intake. 2. Recommend removing " 1800kcal" restriction as pt is in hypermetabolic state ( sepsis, HD) and obese, requiring more than 1800kcal, weight loss not favorable at this time. 3. Pt reported poor appetite many months, RD recommend oral supplements, pt declined. Expected Outcomes/Goals Expected Outcomes/Goals 1. PO intake to meet at least 75% of estimated nutritional needs.
[2017-03-12] MEDS: Lactulose 10 Gm/15 mL 30mL UDC PO SCH ×3 (10:05→21:34)
[2017-03-12] MEDS ORDERED: Potassium Phosphate 20 MMOLE in Sodium Chloride 0.9% 250 ML IV ONE (10:30)
[2017-03-12 11:22] LABS: INR 1.56 (0.5-1.4); PROTHROMBIN TIME (TEST) 16.6 SECONDS (9.5-11.5)
[2017-03-12] MEDS: MULTIVITAMIN IV SCH (15:56)
[2017-03-12] MEDS: AMINO ACIDS IV SCH (15:56)
[2017-03-12] MEDS: [UNRECOGNIZED DRUG - OTHER] IV SCH (15:56)
[2017-03-12] MEDS: ELECTROLYTES IV SCH (15:56)
[2017-03-12] MEDS: INTRALIPIDS IV SCH (15:56)
[2017-03-12] MEDS: Micafungin 100 MG in Sodium Chloride 0.9% 100 ML IV SCH (21:53)
--- NOTE | 2017-03-13 00:11 | Progress Notes ---
DATE: 03/12/2017 PROBLEM LIST: 1. Acute septic shock. 2. Respiratory failure. 3. Bilateral interstitial pneumonitis. 4. Abdominal wall ____ multiple organisms with MDRO. SYMPTOMS: The patient is obtunded, no respiratory distress, though quite tachypneic, no respiratory distress. PHYSICAL EXAMINATION: VITAL SIGNS: The patient's heart rate 110-120, blood pressure is in 90s on vasopressor. Saturation is okay on ____ assist control mode of ventilator. NECK: Veins not visualized. CHEST: Shows diminished air entry with occasional junior legal secretary noise. HEART: Regular and tachycardic. ABDOMEN: Soft, nontender with wound VAC.. LABORATORY DATA: The patient's INR is at 1.56, electrolytes are okay with white count of 16.9 and creatinine is 2.4 with a slight elevation of the LFT. ASSESSMENT: The patient is doing poorly with septic shock, with multisystem failure, with extensive pneumonia and multi-drug resistant organisms abdominal wall. PLANS AND SUGGESTIONS: We will go ahead and continue supportive care. Overall prognosis appears to be poor. Care and plan discussed with Dr. Bishop yesterday. JOB# [id number]
[2017-03-13] MEDS: INSULIN ASPART SLIDING SCALE 100 UNITS/ML UNIT SUBQ SCH ×4 (00:19→18:38)
[2017-03-13] MEDS: Levetiracetam 1000mg/100mL 1,000 MG/100 ML BAG IV SCH ×2 (01:14→13:18)
[2017-03-13] MEDS: Albuterol/Ipratropium Neb 3 ML AERS HHN SCH ×6 (02:32→23:18)
[2017-03-13] MEDS: Valproate Sodium 1,000 MG in Sodium Chloride 0.9% 100 ML IV SCH ×2 (04:33→17:29)
[2017-03-13 05:23] LABS: HEMATOCRIT 24.6 % (35.0-45.0); HEMOGLOBIN 8.6 gm/dL (11.7-16.1); MEAN CELL VOLUME 94.3 fl (81-100); MEAN PLATELET VOLUME 9.5 fl; RED BLOOD COUNT 2.61 Mil/cmm (3.80-5.20); RED CELL DISTRIBUTION WIDTH 16.9 % (11.5-20.0)
[2017-03-13 05:27] LABS: PLATELET COUNT 30 Th/cmm (150-400); WHITE BLOOD COUNT 21.6 Th/cmm (4.8-10.8)
[2017-03-13 05:30] LABS: INR 1.52 (0.5-1.4); PROTHROMBIN TIME (TEST) 16.1 SECONDS (9.5-11.5)
[2017-03-13] MEDS: Budesonide 0.5 Mg/2 mL Ud HHN SCH ×2 (07:08→19:12)
[2017-03-13 07:49] LABS: ANISOCYTOSIS 1+; BAND NEUTROPHILE 15 % (0-10); EOSINOPHIL 6 % (0-5); MYELOCYTE 1 %; NEUTROPHILS 62 % (40-80); PLATELET ESTIMATE DECREASED PLATELETS (NORMAL); PLATELET MORPHOLOGY GIANT PLATELETS SEEN (NORMAL); TOTAL CELLS COUNTED 100
[2017-03-13] MEDS: Meropenem 500 MG in Sodium Chloride 0.9% 100 ML IV SCH (08:01)
[2017-03-13] MEDS: Venelex 60gm Tube TP SCH (08:02)
[2017-03-13] MEDS: Lactobacillus Rhamnosus 10 Billion CFU Capsule PO SCH (08:04)
[2017-03-13] MEDS: Lactulose 10 Gm/15 mL 30mL UDC PO SCH ×4 (08:23→20:44)
[2017-03-13] MEDS: Chlorhexidine Gluconate 0.12% 15mL Mouthwash MM SCH ×2 (08:25→20:45)
--- NOTE | 2017-03-13 08:28 | Diagnostic Imaging Report ---
CHEST X-RAY: AP view INDICATION: Pneumonia Comparison: 03/11/2017 FINDINGS: ET tube is seen with tip 2.6 cm above the Dory. Right sided dialysis catheter and right PICC line are stable. Persistent diffuse infiltrates are seen with overall slight improvement since prior exam. Left lung consolidative changes and left effusion is again noted. Cardiomegaly is noted. IMPRESSION: Persistent extensive multifocal infiltrates with slight improvement since prior examination, particularly of the right lung Persistent left lung consolidative changes and left effusion.
--- NOTE | 2017-03-13 08:53 | General Progress Note ---
Subjective - Review of Systems Subjective: Patient is seen and examined. Patient is sedated and intubated. Patient is on levophed drip and cardizem drip along with the Chester-Synephrine drip. Discussed with nursing staff about care plan. Consultants notes reviewed. Discussed with nursing staff about care plan. Objective - Results Result Diagrams: 03/13/17 04:45 03/12/17 06:52 Recent Labs: Laboratory Last Values WBC 21.6 Th/cmm (4.8-10.8) H* D 03/13/17 04:45 RBC 2.61 Mil/cmm (3.80-5.20) L 03/13/17 04:45 Hgb 8.6 gm/dL (11.7-16.1) L 03/13/17 04:45 Hct 24.6 % (35.0-45.0) L 03/13/17 04:45 MCV 94.3 fl (81-100) 03/13/17 04:45 MCH 33.0 pg (27.0-31.0) H 03/13/17 04:45 MCHC Differential 35.0 pg (28.0-36.0) 03/13/17 04:45 RDW 16.9 % (11.5-20.0) 03/13/17 04:45 Plt Count 30 Th/cmm (150-400) L 03/13/17 04:45 MPV 9.5 fl 03/13/17 04:45 Neutrophils % 75.5 % (40.0-80.0) 03/12/17 04:57 Band Neutrophils % 15 % (0-10) H 03/13/17 04:45 Lymphocytes % 12.3 % (20.0-50.0) L 03/12/17 04:57 Monocytes % 6.5 % (2.0-10.0) 03/12/17 04:57 Eosinophils % 5.6 % (0.0-5.0) H 03/12/17 04:57 Basophils % 0.1 % (0.0-2.0) 03/12/17 04:57 Neutrophils (Manual) 62 % (40-80) 03/13/17 04:45 Lymphocytes 12 % (20-50) L 03/13/17 04:45 Monocytes 4 % (2-10) 03/13/17 04:45 Eosinophils 6 % (0-5) H 03/13/17 04:45 Basophils 1 % (0-3) 03/01/17 12:26 Metamyelocytes 2 % (0-0) H 03/11/17 06:53 Myelocytes 1 % 03/13/17 04:45 Atypical Lymphocytes 1 % 03/07/17 08:20 Hypochromia 1+ 03/03/17 06:29 Platelet Estimate DECREASED PLATELETS (NORMAL) 03/13/17 04:45 Platelet Morphology GIANT PLATELETS SEEN (NORMAL) 03/13/17 04:45 Polychromasia 1+ 03/03/17 06:29 Poikilocytosis 1+ 03/07/17 08:20 Anisocytosis 1+ 03/13/17 04:45 RBC Morph Micro Appear ABNORMAL (NORMAL) 03/13/17 04:45 Plt Count 30 Th/cmm (150-750) L 03/13/17 04:45 PT 16.1 SECONDS (9.5-11.5) H 03/13/17 04:45 INR 1.52 (0.5-1.4) H 03/13/17 04:45 PTT (Actin FS) 49.7 SECONDS (26.0-38.0) H 03/13/17 04:45 Fibrinogen 222.0 mg/dL (200.0-400.0) 03/13/17 04:45 D-Dimer 4120 ng/mL (100-400) H 03/13/17 04:45 Specimen Source Arterial 03/11/17 08:30 Sample Site Left Radial 03/11/17 08:30 pH 7.48 (7.35-7.45) H 03/11/17 08:30 pCO2 34.0 mmHg (35.0-45.0) L 03/11/17 08:30 pO2 63.0 mmHg (80.0-100.0) L 03/11/17 08:30 HCO3 26.5 mEq/L (20.0-26.0) H 03/11/17 08:30 Base Excess 2.1 mEq/L (-3.0-3.0) 03/11/17 08:30 O2 Saturation 93.0 % (92.0-100.0) 03/11/17 08:30 Chaz Test YES 03/11/17 08:30 Vent Rate 12 03/11/17 08:30 Inspired O2 50 03/11/17 08:30 Tidal Volume 500 03/11/17 08:30 PEEP NA 03/11/17 08:30 Pressure (ins/psv/peep) NA 03/11/17 08:30 Critical Value SH 03/11/17 08:30 Sodium 132 mEq/L (136-145) L 03/12/17 06:52 Potassium 3.7 mEq/L (3.5-5.1) 03/12/17 06:52 Chloride 102 mEq/L (98-107) 03/12/17 06:52 Carbon Dioxide 24.1 mEq/L (21.0-31.0) 03/12/17 06:52 Anion Gap 9.6 (7.0-16.0) 03/12/17 06:52 BUN 40 mg/dL (7-25) H 03/12/17 06:52 Creatinine 2.4 mg/dL (0.6-1.2) H 03/12/17 06:52 Est GFR ( Amer) 25.7 ml/min (>90) 03/12/17 06:52 Est GFR (Non-Af Amer) 21.3 ml/min 03/12/17 06:52 BUN/Creatinine Ratio 16.7 03/12/17 06:52 Glucose 129 mg/dL (70-105) H 03/12/17 06:52 POC Glucose 129 MG/DL (70 - 105) H 03/13/17 06:12 Hemoglobin A1c % 4.6 % (4.0-6.0) 02/27/17 19:30 Whole Bld Lactic Acid 3.33 mmol/L (0.60-1.99) H* 03/07/17 10:48 Calcium 7.8 mg/dL (8.6-10.3) L 03/12/17 06:52 Phosphorus 2.2 mg/dL (2.5-5.0) L 03/12/17 06:52 Magnesium 1.7 mg/dL (1.9-2.7) L 03/12/17 06:52 Total Bilirubin 5.9 mg/dL (0.3-1.0) H 03/12/17 06:52 Direct Bilirubin 3.53 mg/dL (0.0-0.2) H 03/09/17 05:30 AST 62 U/L (13-39) H 03/12/17 06:52 ALT 13 U/L (7-52) 03/12/17 06:52 Alkaline Phosphatase 186 U/L (34-104) H 03/12/17 06:52 Ammonia 223 umol/L (16-53) H 03/11/17 06:53 Troponin I 0.05 ng/mL (0.01-0.05) 03/07/17 08:20 C-Reactive Protein 16.9 mg/dL (0.0-0.9) H 03/10/17 09:30 Total Protein 4.7 gm/dL (6.0-8.3) L 03/12/17 06:52 Albumin 1.6 gm/dL (3.7-5.3) L 03/12/17 06:52 Globulin 3.1 gm/dL 03/12/17 06:52 Albumin/Globulin Ratio 0.5 (1.0-1.8) L 03/12/17 06:52 Prealbumin 4 mg/dL (10-36) L 03/10/17 09:30 Triglycerides 112 mg/dL (<150) 03/03/17 06:29 Cholesterol < 25 mg/dL (<200) 03/05/17 07:45 TSH 4.18 uIU/ml (0.34-5.60) 03/08/17 04:52 PTH Intact 43 pg/mL (15-65) 03/08/17 04:52 Random Amikacin 12.1 ug/ml (1.0-30.0) 03/10/17 09:30 Gentamicin Peak 8.8 ug/ml (4.0-8.0) 03/01/17 10:00 Gentamicin Trough ug/ml (0.2-2.0) 03/01/17 08:30 Serum Ketones NEGATIVE (NEGATIVE) 02/27/17 19:30 Hepatitis A IgM Ab Negative (Negative) 03/02/17 05:36 Hep Bs Antigen Negative (Negative) 03/02/17 05:36 Hep B Core IgM Ab Negative (Negative) 03/02/17 05:36 Hepatitis C Antibody <0.1 s/co ratio (0.0-0.9) 03/02/17 05:36 Blood Type A POSITIVE 03/11/17 06:53 Antibody Screen NEGATIVE 03/11/17 06:53 Crossmatch See Detail 03/11/17 06:53 - Physical Exam Vitals and I&O: Vital Signs Temp 99.2 F 03/13/17 06:00 Pulse 137 03/13/17 08:30 Resp 22 03/13/17 07:00 BP 106/40 03/13/17 08:30 Pulse Ox 95 03/13/17 07:10 Intake & Output 03/12/17 03/13/17 03/13/17 18:59 06:59 18:59 Intake Total 2516.966 1966.309 903.5 Output Total 300 175 150 Balance 2216.966 1791.309 753.5 Weight (lbs) 131.542 kg 79.379 kg Intake: Intake, IV Amount 2516.966 1246.309 183.5 Diltiazem 125 mg In 145.000 Dextrose 5% 100 ml @ 10 MG/HR 10 mls/hr IV TITR [facility] Rx#:[id number] Levetiracetam 1000mg/ 100 100 100mL 1,000 mg In 100 ml @ 400 mls/hr IV Q12H [facility] Rx#:[id number] Meropenem 500 mg In 100 Sodium Chloride 0.9% 100 ml @ 100 mls/hr IV Q24H [facility] Rx#:[id number] Multivitamin Inj 10 ml In 1414 Amino Acids 3% / Electrolytes 700 ml In Intralipids 20% 50 ml In Dextrose 10% 680 ml @ 60 mls/hr IV .Q24H [facility] Rx#: [id number] Norepinephrine 8 mg In 511.808 516.000 Dextrose 5% 250 ml @ 15 MCG/MIN 29.02 mls/hr IV TITR PRN Rx#:[id number] Phenylephrine HCl 10 mg 66.5 183.5 In Sodium Chloride 0.9% 250 ml @ Titrate IV TITR [facility] Rx#:[id number] Propofol 1,000 mg In 100 181.158 208.809 ml @ 10 MCG/KG/MIN 8.11 mls/hr IV TITR [facility] Rx#: [id number] Tigecycline 50 mg In 100 100 Sodium Chloride 0.9% 100 ml @ 100 mls/hr IV Q12H [facility] Rx#:[id number] Valproate Sodium 1,000 mg 110 110 In Sodium Chloride 0.9% 100 ml @ 100 mls/hr IV Q12H [facility] Rx#:[id number] TPN/PPN 720 720 Output: Drainage 300 175 150 Left Lower Abdomen 200 150 50 Right Lower Abdomen 100 25 100 Active Medications: Current Medications Acetaminophen (Tylenol 650mg Supp) 650 mg RC Q6H PRN PRN Reason: fever Stop: 05/09/17 16:11 Last Admin: 03/10/17 16:49 Dose: 650 mg Albuterol Sulfate (Albuterol 2.5mg/3ml Neb Ud) 2.5 mg HHN Q2H PRN PRN Reason: Shortness of Breath Stop: 04/29/17 03:59 Last Admin: 03/09/17 14:12 Dose: 2.5 mg Albuterol/Ipratropium (Duoneb Neb) 3 ml HHN Q4HRT [facility] Stop: 05/04/17 22:59 Last Admin: 03/13/17 07:08 Dose: 3 ml Ascorbic Acid (Vitamin C) 500 mg PO DAILY [facility] Stop: 04/29/17 08:59 Last Admin: 03/13/17 08:02 Dose: Not Given Budesonide (Pulmicort) 0.25 mg HHN BIDRT [facility] Stop: 05/05/17 06:59 Last Admin: 03/13/17 07:08 Dose: 0.25 mg Chlorhexidine Gluconate (Peridex) 15 ml MM 0800,1999 [facility] Stop: 05/05/17 19:59 Last Admin: 03/13/17 08:25 Dose: 15 ml Cholecalciferol (Vitamin D3) 2,000 iu PO DAILY [facility] Stop: 04/29/17 08:59 Last Admin: 03/13/17 08:03 Dose: Not Given Diphenhydramine HCl (Benadryl) 25 mg PO Q6H PRN PRN Reason: Itching Stop: 04/29/17 03:39 Escitalopram Oxalate (Lexapro) 10 mg PO DAILY [facility] PRN Reason: Protocol Stop: 04/29/17 08:59 Last Admin: 03/13/17 08:03 Dose: Not Given Famotidine (Pepcid) 20 mg IVP DAILY [facility] Stop: 05/01/17 08:59 Last Admin: 03/13/17 08:23 Dose: 20 mg Fludrocortisone Acetate (Florinef) 0.1 mg PO BID [facility] Stop: 04/29/17 08:59 Last Admin: 03/13/17 08:02 Dose: Not Given Diltiazem HCl 125 mg/ Dextrose 125 mls @ 10 mls/hr IV TITR [facility]; 10 MG/HR PRN Reason: Protocol Stop: 04/29/17 04:14 Last Titration: 03/13/17 06:20 Dose: 0 mg/hr, 0 mls/hr Tigecycline 50 mg/ Sodium (Chloride) 100 mls @ 100 mls/hr IV Q12H [facility] Stop: 04/30/17 11:29 Last Infusion: 03/13/17 00:20 Dose: Infused Multivitamins/Minerals 10 ml/Amino Acids/Electrolytes/ Fat Emulsion Intravenous / Dextrose 1,440 mls @ 60 mls/hr IV .Q24H [facility] Stop: 05/02/17 15:59 Last Admin: 03/12/17 15:56 Dose: 60 mls/hr Amikacin Sulfate 300 mg/ (Dextrose) 101.2 mls @ 100 mls/hr IV PRN PRN PRN Reason: After ea. HD on MWF Stop: 05/05/17 14:59 Meropenem 500 mg/ Sodium (Chloride) 100 mls @ 100 mls/hr IV Q24H [facility] Stop: 05/05/17 08:59 Last Admin: 03/13/17 08:01 Dose: 100 mls/hr Levetiracetam (Keppra Pb) 1,000 mg in 100 mls @ 400 mls/hr IV Q12H [facility] Stop: 05/08/17 13:29 Last Infusion: 03/13/17 01:29 Dose: Infused Valproate Sodium 1,000 mg/ (Sodium Chloride) 110 mls @ 100 mls/hr IV Q12H [facility] Stop: 05/08/17 16:59 Last Infusion: 03/13/17 06:20 Dose: Infused Propofol (Diprivan) 1,000 mg in 100 mls @ 8.11 mls/hr IV TITR [facility]; 10 MCG/KG/ MIN PRN Reason: Protocol Stop: 05/08/17 16:51 Last Titration: 03/13/17 06:23 Dose: 5 mcg/kg/min, 4.055 mls/hr Norepinephrine Bitartrate 8 mg (/ Dextrose) 258 mls @ 29.02 mls/hr IV TITR PRN ; Protocol; 15 MCG/MIN PRN Reason: BP MAINTENANCE (PER PROTOCOL) Stop: 05/09/17 13:06 Last Admin: 03/13/17 06:08 Dose: 30 mcg/min, 58.05 mls/hr Micafungin Sodium 100 mg/ (Sodium Chloride) 100 mls @ 100 mls/hr IV Q24H [facility] Stop: 05/11/17 19:59 Last Admin: 03/12/17 21:53 Dose: Not Given Phenylephrine HCl 10 mg/ (Sodium Chloride) 250 mls @ 0 mls/hr IV TITR [facility]; Titrate PRN Reason: Protocol Stop: 05/11/17 23:29 Last Admin: 03/13/17 07:59 Dose: 80 mcg/min, 120 mls/hr Insulin Aspart (Novolog Insulin Sliding Scale) 0 units SUBQ Q6HR [facility] PRN Reason: Protocol Stop: 05/03/17 00:00 Last Admin: 03/13/17 06:16 Dose: Not Given Lactobacillus Rhamnosus (Culturelle) 1 each PO DAILY [facility] Stop: 05/01/17 08:59 Last Admin: 03/13/17 08:04 Dose: Not Given Lactulose (Cephulac) 30 gm PO TID [facility] Stop: 05/10/17 20:59 Last Admin: 03/13/17 08:23 Dose: 30 gm Lorazepam (Ativan) 4 mg IVP PRN PRN; Protocol PRN Reason: SEIZURE Stop: 05/08/17 13:42 Last Admin: 03/09/17 15:42 Dose: 4 mg Metoprolol Tartrate (Lopressor) 50 mg PO Q12HR [facility] Stop: 04/29/17 08:59 Last Admin: 03/13/17 08:04 Dose: Not Given Miscellaneous (Clinical Monitoring) 1 ea [facility] DAILY PRN PRN Reason: RENAL Stop: 04/29/17 10:50 Miscellaneous (Vte Chemical Prophylaxis Screen/ Admission) 1 ea [facility] PRN PRN PRN Reason: PROTOCOL Stop: 04/29/17 15:40 Miscellaneous (Probiotic Screen) 1 ea [facility] PRN PRN PRN Reason: PROTOCOL Stop: 04/30/17 10:56 Miscellaneous (Tpn Per Pharmacy) 1 ea [facility] PRN PRN PRN Reason: PROTOCOL Stop: 04/30/17 18:13 Zinc Sulfate (Zinc Sulfate) 220 mg PO DAILY [facility] Stop: 04/29/17 08:59 Last Admin: 03/13/17 08:04 Dose: Not Given General: no Alert HEENT: Atraumatic, PERRLA, Other (endotracheal tube noted .) Neck: Supple, +2 carotid pulse wo bruit Cardiovascular: Systolic murmurs, Other (irregularly irregular.) Lungs: Other (diffuse rhonchi throughout.) Abdomen: Bowel sounds, Soft, Obese, Other (multiple abd wounds, w/ wound vac.) Extremities: Other (ecchymosis, hematomas, petecchiae,debrided wound.), no Edema Neurological: Sensation intact, Other (unable to assess.) Skin: Rash, Breakdown (multiple blisters), Significant lesion (multiple bruises and ecchymosis, ischemic wounds.) Psych/Mental Status: Other (intubated and sedated) - Procedures Procedures: Procedures Procedure Code Date EXCISION OF ABD SUBCU/FASCIA, OPEN APPROACH [id number] 02/27/17 EXCISION OF R LOW LEG SUBCU/FASCIA, OPEN APPROACH [id number] 02/27/17 INSERT EMERGENCY AIRWAY [id number] 02/27/17 INSERTION OF ENDOTRACHEAL AIRWAY INTO TRACHEA, VIA OPENING [id number] 02/27/17 REMOVAL OF PRESSURE SORE [id number] 02/27/17 RESPIRATORY VENTILATION, 24-96 CONSECUTIVE HOURS [id number] 02/27/17 VENT MGMT INPAT INIT DAY 28517 02/27/17 Assessment/Plan - Assessment Assessment: Septic shock requiring multiple pressor agents. Multiple infected wounds on abdomen and extremities status post debridement with wound VAC cultures are positive for multidrug resistant organisms.. End-stage renal disease on hemodialysis. Hypertension. seizure. Elevated ammonia. Worsening leukocytosis. Acute respiratory failure requiring endotracheal intubation and mechanical ventilation. Coronary artery disease. ARDS. Multi-organisms resistants growth of bacteria on abdominal wounds requiring IV antibiotics Severe thrombocytopenia secondary to DIC . Anemia of chronic kidney disease and anemia of inflammation as well as due to DIC status post blood transfusion. Chronic atrial fibrillation. DIC positive. History of DVT and jugular venous thrombosis. Heparin induced thrombocytopenia history. Diffuse DJD. Bed confined. Guarded prognosis. - Plan Plan: ICU status. Vent support. HHN. FFP. Increase lactulose. Check ammonia level today. Neuro follow-up. Propofol drip. Pulmo follow up. Culture directed IV antibiotics as per ID. Hemodialysis as schedule. Wound care as per surgery. Cardiac monitoring. Symptoms management. Medication management. Hematology follow up. Cardiology follow-up. General nursing care ID follow-up and follow the recommendations Follow labs. Follow-up consultants recommendations. Prognosis guarded. ICU care. I did discuss with patient's son over the phone about patient's condition started diagnosis and treatment plan along with the poor prognosis as well as alternative treatment plan. I encouraged him to ask me as many as question if he has and I have satisfactorily answered all his questions. Chronic management of her chronic illnesses. Care plan reviewed and discussed with RN. Nutritional Asmnt/Malnutr-PDOC - Dietary Evaluation Malnutrition Findings (Please click <Entered> for more info): Nutritional Asmnt/Malnutrition Start: 02/28/17 14: 25 Text: Status: Complete Freq: Document 02/28/17 14:32 GSUN (Rec: 02/28/17 14:52 [email or web address] [email or web address]) Nutritional Asmnt/Malnutrition Patient General Information Nutritional Screening High Risk Screening Diagnosis Infectured multiple abdominal wound, sepsis, hypotension Pertinent Medical Hx/Surgical Hx DM, end stage renal failure, obesity, multiple abdominal wound, anemia Subjective Information 71 [address] consult for wounds/calciphylaxis. Pt was lethargic during visit, spoke to at bedside. Briefly explained renal diet, agreeable to plan, not suitble for extensive edu at this time. Pt appeared obese. Pt reported UBW 250lb measured 1 month ago, pt is unsure of dry weight at dialysis center. Pt reported has gradually lost weight 80lb over the past year due to poor appetite and hospitalizations. RD recommended oral supplements, pt denied, stating she has tried and threw up. Current Diet Order/ Nutrition Support Renal, 1800kcal Pertinent Medications Vitamin C, Vitamin D3, D5-0. 45ns, Pepcid, Novolog, Culturelle, Morphine, Zinc Sulfate Pertinent Labs 8/2: BUN 38H, creatinine 5H, phosphorus 5.4H Nutritional Hx/Data Height 1.63 m Height (Calculated Centimeters) 162.6 Current Weight (lbs) 113.398 kg Weight (Calculated Kilograms) 113.4 Weight (Calculated Grams) 822858.1 [place] Body Weight 120 Recent Weight Change Yes Weight Status Morbidly Obese GI Symptoms Skin Integrity/Comment: Bilateral lower extremities pitting 3+. Abdominal wounds/ calciphylaxis Estimated Nutritional Goals BEE in Kcals: Adj wt of IBW Calories/Kcals/Kg AdjBW 152.5lb/69.3kg (adjsuted to UBW) Kcals Calculated 2078-242kcal (30-35kcal/kg) Protein: Adj wt of IBW Protein Calculated 90-104g (1.2-1.5/gkg) Fluid: ml 2079-2426ml (1ml/kcal) Nutritional Problem 3. Problem Problem Malnutrition related to Etiology unknown etiology, energy imbalance aeb Signs/Symptoms: BMI >40 2. Problem Problem Increased kcal and prot needs related to Etiology hypermetabolic state aeb Signs/Symptoms: on HD, sepsis 1. Problem Problem Impaired nutrient utilization related to Etiology end stage renal failure aeb Signs/Symptoms: on HD, BUN 38H, creatinine 5H, phosphorus 5.4H Malnutrition Related to Morbid Obesity Malnutrition related to morbid obesity BMI> or equal to 40 Query Text:(Any 1 Criteria met) Malnutrition related to morbid obesity Yes Intervention/Recommendation Comments 1. Recommend renal diet. Briefly explained renal diet, pt is agreeable to plan. Encourage PO intake. 2. Recommend removing " 1800kcal" restriction as pt is in hypermetabolic state ( sepsis, HD) and obese, requiring more than 1800kcal, weight loss not favorable at this time. 3. Pt reported poor appetite many months, RD recommend oral supplements, pt declined. Expected Outcomes/Goals Expected Outcomes/Goals 1. PO intake to meet at least 75% of estimated nutritional needs.
[2017-03-13] MEDS ORDERED: Albumin 5% 12.5gm/250mL 12.5 GM/250 ML BTL IV ONE (10:25)
[2017-03-13 11:07] LABS: BE(B) -2.8 mEq/L (-3.0-3.0); HCO3 22.5 mEq/L (20.0-26.0); pH 7.33 (7.35-7.45)
[2017-03-13 11:08] LABS: ABG SOURCE ARTERIAL; ALLEN TEST LB; FIO2 70; MECH RATE 12; MECH VT 500
[2017-03-13 11:09] LABS: CRITICAL VALUES REPORTED BY JC
[2017-03-13 11:36] LABS: ALB/GLOB RATIO 0.4 (1.0-1.8); ALKALINE PHOSPHATASE 201 U/L (34-104); ANION GAP 13.6 (7.0-16.0); BILIRUBIN,TOTAL 6.2 mg/dL (0.3-1.0); BUN - UREA NITROGEN 54 mg/dL (7-25); CALCIUM SERUM 8.2 mg/dL (8.6-10.3); CARBON DIOXIDE 19.4 mEq/L (21.0-31.0); CHLORIDE 105 mEq/L (98-107); CREATININE - SERUM 2.7 mg/dL (0.6-1.2); GLUCOSE 132 mg/dL (70-105); PHOSPHOROUS 4.3 mg/dL (2.5-5.0); SGOT 77 U/L (13-39); SGPT/ALT 15 U/L (7-52); SODIUM SERUM 133 mEq/L (136-145)
--- NOTE | 2017-03-13 15:46 | General Progress Note ---
Subjective - Review of Systems Service Date: 03/13/17 Subjective: unresponsive Objective - Results Result Diagrams: 03/13/17 04:45 03/13/17 11:02 Recent Labs: Laboratory Last Values WBC 21.6 Th/cmm (4.8-10.8) H* D 03/13/17 04:45 RBC 2.61 Mil/cmm (3.80-5.20) L 03/13/17 04:45 Hgb 8.6 gm/dL (11.7-16.1) L 03/13/17 04:45 Hct 24.6 % (35.0-45.0) L 03/13/17 04:45 MCV 94.3 fl (81-100) 03/13/17 04:45 MCH 33.0 pg (27.0-31.0) H 03/13/17 04:45 MCHC Differential 35.0 pg (28.0-36.0) 03/13/17 04:45 RDW 16.9 % (11.5-20.0) 03/13/17 04:45 Plt Count 30 Th/cmm (150-400) L 03/13/17 04:45 MPV 9.5 fl 03/13/17 04:45 Neutrophils % 75.5 % (40.0-80.0) 03/12/17 04:57 Band Neutrophils % 15 % (0-10) H 03/13/17 04:45 Lymphocytes % 12.3 % (20.0-50.0) L 03/12/17 04:57 Monocytes % 6.5 % (2.0-10.0) 03/12/17 04:57 Eosinophils % 5.6 % (0.0-5.0) H 03/12/17 04:57 Basophils % 0.1 % (0.0-2.0) 03/12/17 04:57 Neutrophils (Manual) 62 % (40-80) 03/13/17 04:45 Lymphocytes 12 % (20-50) L 03/13/17 04:45 Monocytes 4 % (2-10) 03/13/17 04:45 Eosinophils 6 % (0-5) H 03/13/17 04:45 Basophils 1 % (0-3) 03/01/17 12:26 Metamyelocytes 2 % (0-0) H 03/11/17 06:53 Myelocytes 1 % 03/13/17 04:45 Atypical Lymphocytes 1 % 03/07/17 08:20 Hypochromia 1+ 03/03/17 06:29 Platelet Estimate DECREASED PLATELETS (NORMAL) 03/13/17 04:45 Platelet Morphology GIANT PLATELETS SEEN (NORMAL) 03/13/17 04:45 Polychromasia 1+ 03/03/17 06:29 Poikilocytosis 1+ 03/07/17 08:20 Anisocytosis 1+ 03/13/17 04:45 RBC Morph Micro Appear ABNORMAL (NORMAL) 03/13/17 04:45 Plt Count 30 Th/cmm (150-750) L 03/13/17 04:45 PT 16.1 SECONDS (9.5-11.5) H 03/13/17 04:45 INR 1.52 (0.5-1.4) H 03/13/17 04:45 PTT (Actin FS) 49.7 SECONDS (26.0-38.0) H 03/13/17 04:45 Fibrinogen 222.0 mg/dL (200.0-400.0) 03/13/17 04:45 D-Dimer 4120 ng/mL (100-400) H 03/13/17 04:45 Specimen Source ARTERIAL 03/13/17 10:55 Sample Site N/A 03/13/17 10:55 pH 7.33 (7.35-7.45) L 03/13/17 10:55 pCO2 44.0 mmHg (35.0-45.0) 03/13/17 10:55 pO2 61.0 mmHg (80.0-100.0) L 03/13/17 10:55 HCO3 22.5 mEq/L (20.0-26.0) 03/13/17 10:55 Base Excess -2.8 mEq/L (-3.0-3.0) 03/13/17 10:55 O2 Saturation 89.0 % (92.0-100.0) L 03/13/17 10:55 Chaz Test LB 03/13/17 10:55 Vent Rate 12 03/13/17 10:55 Inspired O2 70 03/13/17 10:55 Tidal Volume 500 03/13/17 10:55 PEEP 0 03/13/17 10:55 Pressure (ins/psv/peep) N/A 03/13/17 10:55 Critical Value MIGUEL 03/13/17 10:55 Sodium 133 mEq/L (136-145) L 03/13/17 11:02 Potassium 5.0 mEq/L (3.5-5.1) 03/13/17 11:02 Chloride 105 mEq/L (98-107) 03/13/17 11:02 Carbon Dioxide 19.4 mEq/L (21.0-31.0) L 03/13/17 11:02 Anion Gap 13.6 (7.0-16.0) 03/13/17 11:02 BUN 54 mg/dL (7-25) H 03/13/17 11:02 Creatinine 2.7 mg/dL (0.6-1.2) H 03/13/17 11:02 Est GFR ( Amer) 22.5 ml/min (>90) 03/13/17 11:02 Est GFR (Non-Af Amer) 18.6 ml/min 03/13/17 11:02 BUN/Creatinine Ratio 20.0 03/13/17 11:02 Glucose 132 mg/dL (70-105) H 03/13/17 11:02 POC Glucose 130 MG/DL (70 - 105) H 03/13/17 11:10 Hemoglobin A1c % 4.6 % (4.0-6.0) 02/27/17 19:30 Whole Bld Lactic Acid 3.33 mmol/L (0.60-1.99) H* 03/07/17 10:48 Calcium 8.2 mg/dL (8.6-10.3) L 03/13/17 11:02 Phosphorus 4.3 mg/dL (2.5-5.0) 03/13/17 11:02 Magnesium 2.0 mg/dL (1.9-2.7) 03/13/17 11:02 Total Bilirubin 6.2 mg/dL (0.3-1.0) H 03/13/17 11:02 Direct Bilirubin 3.53 mg/dL (0.0-0.2) H 03/09/17 05:30 AST 77 U/L (13-39) H 03/13/17 11:02 ALT 15 U/L (7-52) 03/13/17 11:02 Alkaline Phosphatase 201 U/L (34-104) H 03/13/17 11:02 Ammonia 216 umol/L (16-53) H 03/13/17 11:02 Troponin I 0.05 ng/mL (0.01-0.05) 03/07/17 08:20 C-Reactive Protein 16.9 mg/dL (0.0-0.9) H 03/10/17 09:30 Total Protein 4.9 gm/dL (6.0-8.3) L 03/13/17 11:02 Albumin < 1.5 gm/dL (3.7-5.3) L 03/13/17 11:02 Globulin 3.4 gm/dL 03/13/17 11:02 Albumin/Globulin Ratio 0.4 (1.0-1.8) L 03/13/17 11:02 Prealbumin 4 mg/dL (10-36) L 03/10/17 09:30 Triglycerides 112 mg/dL (<150) 03/03/17 06:29 Cholesterol < 25 mg/dL (<200) 03/05/17 07:45 TSH 4.18 uIU/ml (0.34-5.60) 03/08/17 04:52 PTH Intact 43 pg/mL (15-65) 03/08/17 04:52 Random Amikacin 12.1 ug/ml (1.0-30.0) 03/10/17 09:30 Gentamicin Peak 8.8 ug/ml (4.0-8.0) 03/01/17 10:00 Gentamicin Trough ug/ml (0.2-2.0) 03/01/17 08:30 Serum Ketones NEGATIVE (NEGATIVE) 02/27/17 19:30 Hepatitis A IgM Ab Negative (Negative) 03/02/17 05:36 Hep Bs Antigen Negative (Negative) 03/02/17 05:36 Hep B Core IgM Ab Negative (Negative) 03/02/17 05:36 Hepatitis C Antibody <0.1 s/co ratio (0.0-0.9) 03/02/17 05:36 Blood Type A POSITIVE 03/11/17 06:53 Antibody Screen NEGATIVE 03/11/17 06:53 Crossmatch See Detail 03/11/17 06:53 - Physical Exam Vitals and I&O: Vital Signs Temp 99.4 F 03/13/17 12:00 Pulse 107 08/15/17 15:23 Resp 28 03/13/17 12:00 BP 100/37 03/13/17 12:59 Pulse Ox 91 03/13/17 15:23 Intake & Output 03/12/17 03/13/17 03/13/17 18:59 06:59 18:59 Intake Total 2516.966 0319.266 4098.5 Output Total 300 175 150 Balance 2216.966 2671.906 4174.5 Weight (lbs) 131.542 kg 79.379 kg Intake: Intake, IV Amount 2516.966 9901.783 7533.5 Diltiazem 125 mg In 145.000 Dextrose 5% 100 ml @ 10 MG/HR 10 mls/hr IV TITR [facility] Rx#:[id number] Levetiracetam 1000mg/ 100 100 100 100mL 1,000 mg In 100 ml @ 400 mls/hr IV Q12H [facility] Rx#:[id number] Meropenem 500 mg In 100 100 Sodium Chloride 0.9% 100 ml @ 100 mls/hr IV Q24H [facility] Rx#:[id number] Multivitamin Inj 10 ml In 1414 Amino Acids 3% / Electrolytes 700 ml In Intralipids 20% 50 ml In Dextrose 10% 680 ml @ 60 mls/hr IV .Q24H [facility] Rx#: [id number] Norepinephrine 8 mg In 511.808 516.000 258 Dextrose 5% 250 ml @ 15 MCG/MIN 29.02 mls/hr IV TITR PRN Rx#:[id number] Phenylephrine HCl 10 mg 66.5 667.5 In Sodium Chloride 0.9% 250 ml @ Titrate IV TITR [facility] Rx#:[id number] Propofol 1,000 mg In 100 181.158 208.809 ml @ 10 MCG/KG/MIN 8.11 mls/hr IV TITR [facility] Rx#: [id number] Tigecycline 50 mg In 100 100 100 Sodium Chloride 0.9% 100 ml @ 100 mls/hr IV Q12H [facility] Rx#:[id number] Valproate Sodium 1,000 mg 110 110 In Sodium Chloride 0.9% 100 ml @ 100 mls/hr IV Q12H [facility] Rx#:[id number] TPN/PPN 720 720 Output: Drainage 300 175 150 Left Lower Abdomen 200 150 50 Right Lower Abdomen 100 25 100 Active Medications: Current Medications Acetaminophen (Tylenol 650mg Supp) 650 mg RC Q6H PRN PRN Reason: fever Stop: 05/09/17 16:11 Last Admin: 03/10/17 16:49 Dose: 650 mg Albuterol Sulfate (Albuterol 2.5mg/3ml Neb Ud) 2.5 mg HHN Q2H PRN PRN Reason: Shortness of Breath Stop: 04/29/17 03:59 Last Admin: 03/09/17 14:12 Dose: 2.5 mg Albuterol/Ipratropium (Duoneb Neb) 3 ml HHN Q4HRT [facility] Stop: 05/04/17 22:59 Last Admin: 03/13/17 15:17 Dose: 3 ml Ascorbic Acid (Vitamin C) 500 mg PO DAILY [facility] Stop: 04/29/17 08:59 Last Admin: 03/13/17 08:02 Dose: Not Given Budesonide (Pulmicort) 0.25 mg HHN BIDRT [facility] Stop: 05/05/17 06:59 Last Admin: 03/13/17 07:08 Dose: 0.25 mg Chlorhexidine Gluconate (Peridex) 15 ml MM 0800,2000 [facility] Stop: 05/05/17 19:59 Last Admin: 03/13/17 08:25 Dose: 15 ml Cholecalciferol (Vitamin D3) 2,000 iu PO DAILY [facility] Stop: 04/29/17 08:59 Last Admin: 03/13/17 08:03 Dose: Not Given Diphenhydramine HCl (Benadryl) 25 mg PO Q6H PRN PRN Reason: Itching Stop: 04/29/17 03:39 Escitalopram Oxalate (Lexapro) 10 mg PO DAILY [facility] PRN Reason: Protocol Stop: 04/29/17 08:59 Last Admin: 03/13/17 08:03 Dose: Not Given Famotidine (Pepcid) 20 mg IVP DAILY [facility] Stop: 05/01/17 08:59 Last Admin: 03/13/17 08:23 Dose: 20 mg Fludrocortisone Acetate (Florinef) 0.1 mg PO BID [facility] Stop: 04/29/17 08:59 Last Admin: 03/13/17 08:02 Dose: Not Given Diltiazem HCl 125 mg/ Dextrose 125 mls @ 10 mls/hr IV TITR [facility]; 10 MG/HR PRN Reason: Protocol Stop: 04/29/17 04:14 Last Titration: 03/13/17 06:20 Dose: 0 mg/hr, 0 mls/hr Tigecycline 50 mg/ Sodium (Chloride) 100 mls @ 100 mls/hr IV Q12H [facility] Stop: 04/30/17 11:29 Last Infusion: 03/13/17 12:10 Dose: Infused Multivitamins/Minerals 10 ml/Amino Acids/Electrolytes/ Fat Emulsion Intravenous / Dextrose 1,440 mls @ 60 mls/hr IV .Q24H [facility] Stop: 05/02/17 15:59 Last Admin: 03/12/17 15:56 Dose: 60 mls/hr Meropenem 500 mg/ Sodium (Chloride) 100 mls @ 100 mls/hr IV Q24H [facility] Stop: 05/05/17 08:59 Last Infusion: 03/13/17 09:05 Dose: Infused Levetiracetam (Keppra Pb) 1,000 mg in 100 mls @ 400 mls/hr IV Q12H [facility] Stop: 05/08/17 13:29 Last Infusion: 03/13/17 13:37 Dose: Infused Valproate Sodium 1,000 mg/ (Sodium Chloride) 110 mls @ 100 mls/hr IV Q12H [facility] Stop: 05/08/17 16:59 Last Infusion: 03/13/17 06:20 Dose: Infused Propofol (Diprivan) 1,000 mg in 100 mls @ 8.11 mls/hr IV TITR [facility]; 10 MCG/KG/ MIN PRN Reason: Protocol Stop: 05/08/17 16:51 Last Titration: 03/13/17 06:23 Dose: 5 mcg/kg/min, 4.055 mls/hr Norepinephrine Bitartrate 8 mg (/ Dextrose) 258 mls @ 29.02 mls/hr IV TITR PRN ; Protocol; 15 MCG/MIN PRN Reason: BP MAINTENANCE (PER PROTOCOL) Stop: 05/09/17 13:06 Last Admin: 03/13/17 10:45 Dose: 30 mcg/min, 58.05 mls/hr Micafungin Sodium 100 mg/ (Sodium Chloride) 100 mls @ 100 mls/hr IV Q24H [facility] Stop: 05/11/17 19:59 Last Admin: 03/12/17 21:53 Dose: Not Given Phenylephrine HCl 10 mg/ (Sodium Chloride) 250 mls @ 0 mls/hr IV TITR [facility]; Titrate PRN Reason: Protocol Stop: 05/11/17 23:29 Last Titration: 03/13/17 12:05 Dose: Infused Insulin Aspart (Novolog Insulin Sliding Scale) 0 units SUBQ Q6HR [facility] PRN Reason: Protocol Stop: 05/03/17 00:00 Last Admin: 03/13/17 12:22 Dose: Not Given Lactobacillus Rhamnosus (Culturelle) 1 each PO DAILY [facility] Stop: 05/01/17 08:59 Last Admin: 03/13/17 08:04 Dose: Not Given Lactulose (Cephulac) 30 gm PO TID [facility] Stop: 05/10/17 20:59 Last Admin: 03/13/17 08:23 Dose: 30 gm Lorazepam (Ativan) 4 mg IVP PRN PRN; Protocol PRN Reason: SEIZURE Stop: 05/08/17 13:42 Last Admin: 03/09/17 15:42 Dose: 4 mg Metoprolol Tartrate (Lopressor) 50 mg PO Q12HR [facility] Stop: 04/29/17 08:59 Last Admin: 03/13/17 08:04 Dose: Not Given Miscellaneous (Clinical Monitoring) 1 ea MC DAILY PRN PRN Reason: RENAL Stop: 04/29/17 10:50 Miscellaneous (Vte Chemical Prophylaxis Screen/ Admission) 1 ea PRN PRN PRN Reason: PROTOCOL Stop: 04/29/17 15:40 Miscellaneous (Probiotic Screen) 1 ea PRN PRN PRN Reason: PROTOCOL Stop: 04/30/17 10:56 Miscellaneous (Tpn Per Pharmacy) 1 ea PRN PRN PRN Reason: PROTOCOL Stop: 04/30/17 18:13 Zinc Sulfate (Zinc Sulfate) 220 mg PO DAILY [facility] Stop: 04/29/17 08:59 Last Admin: 03/13/17 08:04 Dose: Not Given General: no Alert HEENT: Atraumatic, PERRLA, Other (endotracheal tube noted .) Neck: Supple, +2 carotid pulse wo bruit Cardiovascular: Systolic murmurs, Other (irregularly irregular.) Lungs: Other (diffuse rhonchi throughout.) Abdomen: Bowel sounds, Soft, Obese, Other (multiple abd wounds, w/ wound vac.) Extremities: Other (ecchymosis, hematomas, petecchiae,debrided wound.), no Edema Neurological: Sensation intact, Other (unable to assess.) Skin: Rash, Breakdown (multiple blisters), Significant lesion (multiple bruises and ecchymosis, ischemic wounds.) Psych/Mental Status: Other (intubated and sedated) - Procedures Procedures: Procedures Procedure Code Date EXCISION OF ABD SUBCU/FASCIA, OPEN APPROACH [id number] 02/27/17 EXCISION OF R LOW LEG SUBCU/FASCIA, OPEN APPROACH [id number] 02/27/17 INSERT EMERGENCY AIRWAY [id number] 02/27/17 INSERTION OF ENDOTRACHEAL AIRWAY INTO TRACHEA, VIA OPENING [id number] 02/27/17 REMOVAL OF PRESSURE SORE 13729 02/27/17 RESPIRATORY VENTILATION, 24-96 CONSECUTIVE HOURS [id number] 02/27/17 VENT MGMT INPAT INIT DAY 08021 02/27/17 Assessment/Plan - Assessment Assessment: * DIC * DVT * RENAL FAILURE * MULTIPLE ABD WALL WOUNDS * RESPIRATORY FAILURE TX FFP X 2 MONITOR DIC PANEL KEEP OFF ANTICOAG GRAVE PROGNOSIS Nutritional Asmnt/Malnutr-PDOC - Dietary Evaluation Malnutrition Findings (Please click <Entered> for more info): Nutritional Asmnt/Malnutrition Start: 02/28/17 14: 25 Text: Status: Complete Freq: Document 02/28/17 14:32 GSUN (Rec: 02/28/17 14:52 [email or web address] [email or web address]) Nutritional Asmnt/Malnutrition Patient General Information Nutritional Screening High Risk Screening Diagnosis Infectured multiple abdominal wound, sepsis, hypotension Pertinent Medical Hx/Surgical Hx DM, end stage renal failure, obesity, multiple abdominal wound, anemia Subjective Information 71 [address] consult for wounds/calciphylaxis. Pt was lethargic during visit, spoke to at bedside. Briefly explained renal diet, agreeable to plan, not suitble for extensive edu at this time. Pt appeared obese. Pt reported UBW 250lb measured 1 month ago, pt is unsure of dry weight at dialysis center. Pt reported has gradually lost weight 80lb over the past year due to poor appetite and hospitalizations. RD recommended oral supplements, pt denied, stating she has tried and threw up. Current Diet Order/ Nutrition Support Renal, 1800kcal Pertinent Medications Vitamin C, Vitamin D3, D5-0. 45ns, Pepcid, Novolog, Culturelle, Morphine, Zinc Sulfate Pertinent Labs 02/28: BUN 38H, creatinine 5H, phosphorus 5.4H Nutritional Hx/Data Height 1.63 m Height (Calculated Centimeters) 162.6 Current Weight (lbs) 113.398 kg Weight (Calculated Kilograms) 113.4 Weight (Calculated Grams) 339936.1 [place] Body Weight 120 Recent Weight Change Yes Weight Status Morbidly Obese GI Symptoms Skin Integrity/Comment: Bilateral lower extremities pitting 3+. Abdominal wounds/ calciphylaxis Estimated Nutritional Goals BEE in Kcals: Adj wt of IBW Calories/Kcals/Kg AdjBW 152.5lb/69.3kg (adjsuted to UBW) Kcals Calculated 2079-2426kcal (30-35kcal/kg) Protein: Adj wt of IBW Protein Calculated 90-104g (1.2-1.5/gkg) Fluid: ml 2079-2426ml (1ml/kcal) Nutritional Problem 3. Problem Problem Malnutrition related to Etiology unknown etiology, energy imbalance aeb Signs/Symptoms: BMI >40 2. Problem Problem Increased kcal and prot needs related to Etiology hypermetabolic state aeb Signs/Symptoms: on HD, sepsis 1. Problem Problem Impaired nutrient utilization related to Etiology end stage renal failure aeb Signs/Symptoms: on HD, BUN 38H, creatinine 5H, phosphorus 5.4H Malnutrition Related to Morbid Obesity Malnutrition related to morbid obesity BMI> or equal to 40 Query Text:(Any 1 Criteria met) Malnutrition related to morbid obesity Yes Intervention/Recommendation Comments 1. Recommend renal diet. Briefly explained renal diet, pt is agreeable to plan. Encourage PO intake. 2. Recommend removing " 1800kcal" restriction as pt is in hypermetabolic state ( sepsis, HD) and obese, requiring more than 1800kcal, weight loss not favorable at this time. 3. Pt reported poor appetite many months, RD recommend oral supplements, pt declined. Expected Outcomes/Goals Expected Outcomes/Goals 1. PO intake to meet at least 75% of estimated nutritional needs.
[2017-03-13] MEDS: MULTIVITAMIN IV SCH (16:55)
[2017-03-13] MEDS: AMINO ACIDS IV SCH (16:55)
[2017-03-13] MEDS: [UNRECOGNIZED DRUG - OTHER] IV SCH (16:55)
[2017-03-13] MEDS: ELECTROLYTES IV SCH (16:55)
[2017-03-13] MEDS: INTRALIPIDS IV SCH (16:55)
[2017-03-13] MEDS ORDERED: Albumin 25% 25gm/100mL 25 GM/100 ML BTL IV ONE ×2 (17:31→17:34)
[2017-03-13] MEDS: Micafungin 100 MG in Sodium Chloride 0.9% 100 ML IV SCH (21:01)
--- NOTE | 2017-03-13 23:07 | Progress Notes ---
DATE: 03/13/2017 PROBLEM LIST: 1. Septic shock. 2. Bilateral pneumonia. 3. Hypotensive. 4. Abdominal sepsis with multiple multidrug resistant organisms. SYMPTOMS: The patient is quite obtunded, no respiratory distress. Currently, still on vasopressors. PHYSICAL EXAMINATION: VITAL SIGNS: Temperature is 97, blood pressure is 100/70, heart rate is 110-140, saturation is 92% now, oxygen is on 70% with assist control. LABORATORY DATA: The patient's white count is 21,000, hemoglobin 8.6, and the patient's platelet count is 30,000. ABG: pO2 of 61, this was on 71%. Creatinine is 2.7. BUN is 54. ASSESSMENT: The patient has multisystem failure, extensive infiltrate, respiratory failure, hypotensive, septicemia, altered state of mind. PLANS AND SUGGESTIONS: We will continue current treatment, prognosis appears to be very poor. JOB# [id number]
--- NOTE | 2017-03-14 11:09 | Discharge Summary ---
DATE OF DISCHARGE: 03/13/2017 PATIENT ID: A 71-year-old female. DATE OF EXPIRY: 03/13/2017 at 23:51. PRINCIPAL DIAGNOSES: 1. Cardiac arrest. 2. Acute respiratory failure requiring endotracheal intubation, mechanical ventilation. 3. Adult respiratory distress syndrome. 4. Septic shock. 5. Disseminated intravascular coagulation positive. 6. Multiple infected wounds on abdomen and extremities, status post debridement. Cultures positive for polymicrobial organism with multidrug resistant organism, required wound VAC as well. 7. End-stage renal disease, on hemodialysis. 8. Seizure. 9. Hypertension. 10. Coronary artery disease. 11. Severe thrombocytopenia secondary to disseminated intravascular coagulation. 12. Recurrent severe anemia, cholecystectomy, multifactorial etiology secondary to anemia of inflammation and disseminated intravascular coagulation. 13. Chronic atrial fibrillation. 14. History of deep venous thrombosis and jugular venous thrombosis. 15. History of heparin-induced thrombocytopenia. 16. Diffuse degenerative joint disease. 17. Bed confined. 18. Guarded prognosis. 19. History of anxiety, depression. 20. Acinetobacter septicemia. REASON FOR ADMISSION: A 71-year-old female [facility] the acute care facility after the patient was noted to have low blood pressure and the patient was more lethargic than usual. The patient was evaluated by Emergency Room MD, and subsequently admitted. Please refer to Dr. Madonna Velazquez's dictated H and P for further information. HOSPITAL COURSE: The patient was admitted by Dr. Velazquez. The patient was seen by appliance mechanic along with Infectious Disease and General surgeon. The patient required ICU admission. The patient's care was taken over by me once I came back from vacation. The patient was given broad-spectrum antibiotics along with involvement Dr. Payne from Hematology/Oncology along with Dr. Herrera from Cardiology were also involved. The patient was also seen by the efficiency analyst, Dr. Nick Herrera for the cardiac status evaluation as well. The patient's hospital course was extremely complicated due to the patient had a multiorgan failure, as well as a complex medical history, the patient's son and were informed about the patient's condition, diagnosis, and treatment plan. The patient was also noted to have DIC positive. FFP and multiple blood transfusions were given as well. The patient's wound cultures done which revealed Klebsiella proteus Enterococcus group of bacteria were positive including the VRE. Blood cultures were done on 03/07/2017, it did grow acinetobacter baumanii positive. A culture directed antibiotic was given as well. The patient did have respiratory distress, which required endotracheal intubation, mechanical ventilation, ventilator to be managed by Dr. Herrera. The patient had a followup chest x-ray, which continues to show worsening of the pulmonary status. The patient did have a seizure. The patient required seizure medication, as well as Neurology evaluation. Unfortunately, the patient's condition deteriorated to the level that the patient a significant cardiac arrest. The patient unable to revive. The patient on 03/13/2017 at 23:51. The patient's was notified. JOB# [id number]
== END 2017-03-13 23:51 | disposition expired | DRG 853 ==
LOC: ER 18:57 → ICU 23:00
PROVIDERS: ADMIT Internal Medicine; ATTEND Internal Medicine
PROC: 0JB80ZZ Excision of Abdomen Subcutaneous Tissue and Fascia, Open Approach (ICD-10-PCS; 2017-03-02)
PROC: 30233N1 Transfusion of Nonautologous Red Blood Cells into Peripheral Vein, Percutaneous Approach (ICD-10-PCS; 2017-03-04)
PROC: 0JB80ZZ Excision of Abdomen Subcutaneous Tissue and Fascia, Open Approach (ICD-10-PCS; principal; 2017-03-05)
PROC: 0BH17EZ Insertion of Endotracheal Airway into Trachea, Via Natural or Artificial Opening (ICD-10-PCS; 2017-03-05)
PROC: 5A1955Z Respiratory Ventilation, Greater than 96 Consecutive Hours (ICD-10-PCS; 2017-03-05)
PROC: 0JBN0ZZ Excision of Right Lower Leg Subcutaneous Tissue and Fascia, Open Approach (ICD-10-PCS; 2017-03-05)
PROC: 30233L1 Transfusion of Nonautologous Fresh Plasma into Peripheral Vein, Percutaneous Approach (ICD-10-PCS; 2017-03-06)
PROC: 30233R1 Transfusion of Nonautologous Platelets into Peripheral Vein, Percutaneous Approach (ICD-10-PCS; 2017-03-06)
PROC: 30233M1 Transfusion of Nonautologous Plasma Cryoprecipitate into Peripheral Vein, Percutaneous Approach (ICD-10-PCS; 2017-03-06)
PROC: 30233K1 Transfusion of Nonautologous Frozen Plasma into Peripheral Vein, Percutaneous Approach (ICD-10-PCS; 2017-03-06)
DX: A41.50 Gram-negative sepsis, unspecified (principal); N18.6 End stage renal disease; D65 Disseminated intravascular coagulation [defibrination syndrome]; J96.00 Acute respiratory failure, unspecified whether with hypoxia or hypercapnia; E43 Unspecified severe protein-calorie malnutrition; R65.21 Severe sepsis with septic shock; G93.40 Encephalopathy, unspecified; J18.9 Pneumonia, unspecified organism; I13.2 Hypertensive heart and chronic kidney disease with heart failure and with stage 5 chronic kidney disease, or end stage renal disease; T81.4XXA Infection following a procedure, initial encounter; L03.311 Cellulitis of abdominal wall; Z68.42 Body mass index [BMI] 45.0-49.9, adult; I47.1 Supraventricular tachycardia; D68.9 Coagulation defect, unspecified; I82.623 Acute embolism and thrombosis of deep veins of upper extremity, bilateral; I46.9 Cardiac arrest, cause unspecified; E11.22 Type 2 diabetes mellitus with diabetic chronic kidney disease; I48.2 Chronic atrial fibrillation; S30.92XA Unspecified superficial injury of abdominal wall, initial encounter; L08.9 Local infection of the skin and subcutaneous tissue, unspecified; E83.59 Other disorders of calcium metabolism; E66.01 Morbid (severe) obesity due to excess calories; I25.10 Atherosclerotic heart disease of native coronary artery without angina pectoris; D63.8 Anemia in other chronic diseases classified elsewhere; S90.01XA Contusion of right ankle, initial encounter; G47.33 Obstructive sleep apnea (adult) (pediatric); D50.9 Iron deficiency anemia, unspecified; D63.1 Anemia in chronic kidney disease; B96.1 Klebsiella pneumoniae [K. pneumoniae] as the cause of diseases classified elsewhere; T45.515A Adverse effect of anticoagulants, initial encounter; Y92.89 Other specified places as the place of occurrence of the external cause; M19.90 Unspecified osteoarthritis, unspecified site; I50.9 Heart failure, unspecified; B96.20 Unspecified Escherichia coli [E. coli] as the cause of diseases classified elsewhere; E88.9 Metabolic disorder, unspecified; R56.9 Unspecified convulsions; Z99.2 Dependence on renal dialysis; Z88.0 Allergy status to penicillin; Z93.3 Colostomy status; Z88.8 Allergy status to other drugs, medicaments and biological substances; Z91.041 Radiographic dye allergy status; Z79.899 Other long term (current) drug therapy; Z79.01 Long term (current) use of anticoagulants; Z96.651 Presence of right artificial knee joint; Z16.24 Resistance to multiple antibiotics; Z74.01 Bed confinement status
CPT/HCPCS: 36415-UA; 36600-90; 71010-TC; 80048-TC; 80053-TC; 80074-90; 80076-TC; 80150-TC; 80170-TC; 82010-TC; 82140-TC; 82248-TC; 82465-TC; 82803-TC; 82948-90; 83036-90; 83605; 83735-TC; 83970-90; 84100-TC; 84134-90; 84443-TC; 84478-TC; 84484-TC; 85007-TC; 85025-TC; 85027-TC; 85049-TC; 85379-TC; 85384-TC; 85610-TC; 85730-TC; 86141-TC; 86850-TC; 86900-TC; 86901-TC; 86922-TC; 86927-TC; 87070; 87070-90; 87075-90; 87205-90; 88304-TC; 90779; 90799; 93005; 94002; 94003; 94640; 95816-TC; 96379; A9540; A9567; J0278; J0330; J1265; J1580; J1644; J1815; J1953; J1956; J2060; J2185; J2248; J2270; J2370; J2597; J2704; J3243; J3370; J3430; J3475; J3490; J7030; J7040; J7613; P9012; P9016; P9017; P9035; P9046; V2790; X5958; X6452; X6598; Z7610